=== PATIENT | female | born 1945 | race Hispanic/Latino ===

== ENCOUNTER 2016-04-25 23:30 | Inpatient (IN) | payer MEDICARE, OTHER ==
[2016-04-25 23:31] VITALS: BMI 25.4
--- NOTE | 2016-04-26 00:46 | ED PDOC ---
Arrival/HPI - General Chief Complaint: Abdominal Pain Time Seen by Provider: 04/26/16 00:29 Historian: Patient - History of Present Illness Narrative History of Present Illness (Text): 04/26/16 00:43 Chasidy Alicia is a 71 year old female, whose past medical history includes ischemic cardiomyopathy, CHF, paroxsymal atrial fibrillation, on Coumadin, COPD , diabetes, CAD with stents, and CABG, presents to the emergency department for evaluation of 2 week duration of diffuse abdominal pain associated with diarrhea for past 2 days. Denies any nausea or vomiting. Patient also complains of intermittent episodes of shortness of breath. Denies any fever, chills, headache, dizziness, chest pain, urinary symptoms or any other complaints at this time. Time/Duration: > week (2 weeks ) Symptom Onset: Gradual Symptom Course: Unchanged Severity Level: Mild Activities at Onset: Light Context: Home Past Medical History - Provider Review Nursing Documentation Reviewed: Yes - Infectious Disease Hx of Infectious Diseases: None - Tetanus Immunization Tetanus Immunization: Unknown - Cardiac Hx Cardiac Disorders: Yes (mi, cad) Hx Congestive Heart Failure: Yes Hx Internal Defibrillator: Yes (2008) Hx Pacemaker: Yes (2008) - Pulmonary Hx Chronic Obstructive Pulmonary Disease (COPD): Yes - Neurological Hx Dementia: Yes Hx Transient Ischemic Attacks (TIA): Yes - HEENT Hx HEENT Disorder: Yes Hx Deafness: Yes ([place]) - Renal Hx Renal Disorder: No - Endocrine/Metabolic Hx Diabetes Mellitus Type 2: Yes - Hematological/Oncological Hx Anemia: Yes - Integumentary Other/Comment: multiple skin discolorations b/l arms, hammertoes 2nd toe both feet, dry discolored skin ble, dry flakey skin both feet, eccymotic right hand, redness and dry skin right knee - Musculoskeletal/Rheumatological Hx Arthritis: Yes Hx Falls: Yes - Gastrointestinal Hx Gastrointestinal Disorders: Yes Hx Diverticulitis: Yes Hx Gastroesophageal Reflux: Yes Hx Liver Failure: Yes Other/Comment: ascites, paracenthesis 10/2015 - Genitourinary/Gynecological Hx Incontinence: Yes - Psychiatric Hx Psychophysiologic Disorder: Yes Hx Anxiety: Yes Hx Depression: Yes Hx Substance Use: No - Surgical History Hx Appendectomy: Yes Hx Cardiac Catheterization: Yes (ptca stents x3) Hx Cholecystectomy: Yes Hx Coronary Stent: Yes Hx Open Heart Surgery: Yes Hx Orthopedic Surgery: Yes (laminectomy) Other/Comment: herniated disc repair , partial colectomy, tonsillectomy - Anesthesia Hx Anesthesia: No Hx Anesthesia Reactions: No Hx Malignant Hyperthermia: No - Suicidal Assessment Feels Threatened In Home Enviroment: No Family/Social History - Physician Review Nursing Documentation Reviewed: Yes Family/Social History: No Known Family HX Smoking Status: Light Smoker < 10 Cigarettes Daily Hx Alcohol Use: No Hx Substance Use: No Hx Substance Use Treatment: No Allergies/Home Meds Allergies/Adverse Reactions: Allergies adhesive tape Allergy (Verified 04/25/16 23:36) REDNESS naproxen Allergy (Verified 04/25/16 23:36) VOMITING ciprofloxacin Adverse Reaction (Verified 04/25/16 23:36) ANAPHYLAXIS Home Medications: Home Meds Medication Instructions Recorded Confirmed Furosemide [Lasix] 80 mg PO DAILY 03/06/15 04/25/16 Simvastatin 20 mg PO DAILY 04/25/16 04/25/16 Review of Systems - Physician Review All systems were reviewed & negative as marked: Yes - Review of Systems Constitutional: Normal. absent: Fatigue, Fevers Respiratory: SOB (intermittent ). absent: Cough, Sputum Cardiovascular: Normal. absent: Chest Pain, Palpitations Gastrointestinal: Abdominal Pain, Diarrhea. absent: Nausea, Vomiting Genitourinary Female: Normal. absent: Dysuria Neurological: Normal. absent: Headache, Dizziness Psychiatric: Normal Physical Exam Vital Signs Reviewed: Yes Vital Signs Temp Pulse Resp BP Pulse Ox 04/26/16 01:40 84 20 121/50 L 93 L 04/25/16 23:48 97.9 F 149/67 Temperature: Afebrile Blood Pressure: Normal Pulse: Regular Respiratory Rate: Normal Appearance: Positive for: Well-Appearing, Non-Toxic, Comfortable Pain Distress: None Mental Status: Positive for: Alert and Oriented X 3 - Systems Exam Head: Present: Atraumatic, Normocephalic Pupils: Present: PERRL Extroacular Muscles: Present: EOMI Conjunctiva: Present: Normal Respiratory/Chest: Present: Good Air Exchange, Rales (bibasilar rales ). No: Respiratory Distress, Accessory Muscle Use Cardiovascular: Present: Regular Rate and Rhythm, Normal S1, S2. No: Murmurs Abdomen: Present: Tenderness (minimal tenderness ), Distention (mild abdominal fullness ), Normal Bowel Sounds. No: Peritoneal Signs Neurological: Present: GCS=15, CN II-XII Intact, Speech Normal, Motor Func Grossly Intact, Normal Sensory Function Skin: Present: Warm, Dry, Normal Color. No: Rashes Psychiatric: Present: Alert, Oriented x 3, Normal Insight, Normal Concentration Medical Decision Making ED Course and Treatment: 04/26/16 00:49 Impression: A 71 year old female who presents to the emergency department complaining of diffuse abdominal pain for 2 weeks. Plan: -- CT abdomen pelvis -- EKG -- Labs, cardiac enzymes -- Chest X-ray -- Reassess and disposition Progress Notes: 04/26/16 04:36 CT abdomen pelvis results reviewed: IMPRESSION: 1. Equivocal micronodular hepatic cirrhosis. Equivocal areas of heterogeneous decreased attenuation within the liver may reflect artifact, HCC if cirrhosis is present, or hepatic metastatic disease. Further evaluation with a contrast-enhanced study is recommended. 2. Large volume abdominal ascites may reflect portal hypertension if present.. 04/26/16 04:38 EKG interpreted by me: 100% paced rhythm. 04/26/16 04:[address] Valdez who accepts patient under his service.Request admission. - Lab Interpretations Lab Results: 04/26/16 01:15 04/26/16 01:15 Lab Results 04/26/16 01:15: WBC 4.2 L, RBC 5.66, Hgb 15.0, Hct 48.2 H, MCV 85.2, MCH 26.5, MCHC 31.1, RDW 16.6 H, Plt Count 182, MPV 11.6 H, Sodium 140, Potassium 5.0, Chloride 99, Carbon Dioxide 31, Anion Gap 15, BUN 21, Creatinine 0.7, Est GFR ( Amer) > 60, Est GFR (Non-Af Amer) > 60, Random Glucose 174 H, Calcium 9.0, Total Bilirubin 1.0, AST 29, ALT 11, Alkaline Phosphatase 137 H, Lactate Dehydrogenase 633, Total Creatine Kinase 51, Troponin I 0.03, NT-Pro-B Natriuret Pep 5230 H, Total Protein 8.1, Albumin 3.7, Globulin 4.4, Albumin/ Globulin Ratio 0.8 L, Lipase 37 I have reviewed the lab results: Yes - RAD Interpretation Narrative RAD Interpretations (Text): EXAM: CT Abdomen and Pelvis Without Intravenous Contrast. FINDINGS: Lower thorax: Cardiomegaly noted Centrilobular emphysema is present. ABDOMEN: Liver: Equivocal micronodular hepatic cirrhosis. Equivocal areas of heterogeneous decreased attenuation within the liver may reflect artifact, HCC if cirrhosis is present, or hepatic metastatic disease. Further evaluation with a contrast-enhanced study is recommended. Gallbladder and bile ducts: The patient is status post cholecystectomy. No ductal dilation. Pancreas: Unremarkable. No ductal dilation. Spleen: Unremarkable. No splenomegaly. Adrenals: Unremarkable. No mass. Kidneys and ureters: Unremarkable. No obstructing stones. No hydronephrosis. Stomach and bowel: Patient status post sigmoidectomy No obstruction. Appendix: No findings to suggest acute appendicitis. PELVIS: Bladder: Unremarkable. No stones. Reproductive: Unremarkable as visualized. ABDOMEN and PELVIS: Intraperitoneal space: Large volume abdominal ascites may reflect portal hypertension at present.. Bones/joints: No acute fracture. No dislocation. Soft tissues: Unremarkable. Vasculature: Unremarkable. No abdominal aortic aneurysm. Lymph nodes: Unremarkable. No enlarged lymph nodes. Other findings: AAA measures 3.4 x 3.3 cm Patient status post ventral herniorrhaphy IMPRESSION: 1. Equivocal micronodular hepatic cirrhosis. Equivocal areas of heterogeneous decreased attenuation within the liver may reflect artifact, HCC if cirrhosis is present, or hepatic metastatic disease. Further evaluation with a contrast-enhanced study is recommended. 2. Large volume abdominal ascites may reflect portal hypertension if present.. Radiology Orders: 04/26/16 00:50 CHEST PORTABLE [RAD] Stat 04/26/16 00:51 ABD & PELVIS W/O PO OR IV CONT [CT] Stat Sample Cutter: Radiologist - EKG Interpretation Interpreted by ED Physician: Yes Type: 12 lead EKG - Medication Orders Current Medication Orders: Discontinued Medications Furosemide (Lasix) 60 mg IVP ONCE ONE Stop: 04/26/16 04:38 - Scribe Statement The provider has reviewed the documentation as recorded by the Javier Cope Provider Attestation: All medical record entries made by the Javier were at my direction and personally dictated by me. I have reviewed the chart and agree that the record accurately reflects my personal performance of the history, physical exam, medical decision making, and the department course for this patient. I have also personally directed, reviewed, and agree with the discharge instructions and disposition. Disposition/Present on Arrival - Present on Arrival Any Indicators Present on Arrival: No History of DVT/PE: No History of Uncontrolled Diabetes: No Urinary Catheter: No History of Decub. Ulcer: No History Surgical Site Infection Following: None - Disposition Have Diagnosis and Disposition been Completed?: Yes Diagnosis: Abdominal pain, CHF (congestive heart failure), NYHA class II, Ascites Disposition: HOSPITALIZED Disposition Time: 04:56 Patient Plan: Admission Patient Problems: Current Active Problems Problem Status Diagnosed CHF (congestive heart failure) Acute Cardiomyopathy Acute Fall Acute Falls frequently Acute Condition: STABLE Discharge Instructions (ExitCare): Heart Failure (ED)
[2016-04-26 01:34] LABS: HEMATOCRIT 48.2 % (36.0-48.0); MEAN CELL VOLUME 85.2 fL (80.0-105.0); MEAN CORPUSCULAR HEMOGLOBIN 26.5 pg (25.0-35.0); MEAN CORPUSCULAR HGB CONC 31.1 g/dl (31.0-37.0); MEAN PLATELET VOLUME 11.6 fl (7.0-11.0); RED CELL DISTRIBUTION WIDTH 16.6 % (11.5-14.5); WHITE BLOOD COUNT 4.2 [, 10^3/ul] (4.5-11.0)
[2016-04-26 01:47] LABS: ALB/GLOB RATIO 0.8 (1.1-1.8); ALKALINE PHOSPHATASE 137 U/L (38-133); ALT/SGPT 11 U/L (7-56); AST/SGOT 29 U/L (15-39); BLOOD UREA NITROGEN 21 mg/dL (7-21); CARBON DIOXIDE 31 mmol/L (21-33); CHLORIDE 99 mmol/L (98-107); GFR AFRICAN-AMERICAN > 60; GLUCOSE,RANDOM 174 mg/dL (70-110); LIPASE 37 U/L (23-300); SODIUM 140 mmol/L (132-148); TOTAL PROTEIN 8.1 g/dL (5.8-8.3)
[2016-04-26 01:57] LABS: TROPONIN I 0.03 ng/mL
--- NOTE | 2016-04-26 11:10 | RAD ---
HISTORY: abdominal pain COMPARISON: Comparison is made to the previous study dated 04/06/2016 FINDINGS: LUNGS: No evidence of new infiltrate or consolidation in the lungs. PLEURA: No significant pleural effusion identified, no pneumothorax apparent. CARDIOVASCULAR: Cardiomegaly and left-sided pacemaker are again seen. Post cardiac surgery changes and sternotomy are also again seen. OSSEOUS STRUCTURES: No significant abnormalities. VISUALIZED UPPER ABDOMEN: Normal. OTHER FINDINGS: None. IMPRESSION: No significant interval change since the previous exam. Cardiomegaly.
--- NOTE | 2016-04-26 15:50 | CT ---
PROCEDURE: CT Abdomen and Pelvis without intravenous contrast HISTORY: Generalized abdominal pain. COMPARISON: 04/06/2016. CT abdomen and pelvis. TECHNIQUE: Unenhanced study. Neither oral nor intravenous contrast administered. Radiation dose: Total exam DLP = 577.61 mGy-cm. FINDINGS: LOWER THORAX: UnremarkableImproved aeration at the lung bases. Incompletely visualized emphysematous change. All. LIVER: Cirrhotic liver without focal abnormality on this noncontrast study GALLBLADDER AND BILE DUCTS: Status post cholecystectomy. No abnormality is seen in the gallbladder fossa. PANCREAS: Generalized atrophy of the pancreas. SPLEEN: Unremarkable. ADRENALS: Unremarkable. No mass. KIDNEYS AND URETERS: Unremarkable. No hydronephrosis. No solid mass. VASCULATURE: Unremarkable. No aortic aneurysm. BOWEL: Unremarkable. No obstruction. No gross mural thickening. Stable postoperative findings at the anastomotic suture line status post sigmoid resection. APPENDIX: No abnormalities to suggest acute appendicitis. No right lower quadrant inflammatory processes identified. PERITONEUM: Stable large volume abdominal and pelvic ascites. LYMPH NODES: Unremarkable. No enlarged lymph nodes. BLADDER: Unremarkable. REPRODUCTIVE: Unremarkable. BONES: No acute fracture. OTHER FINDINGS: None. IMPRESSION: No acute findings related to/accounting for the clinical presentation. No significant interval change compared to the prior examination(s). Concordant results (preliminary interpretation) provided by [facility]. Procedure Completed: 03:31. Preliminary ([facility]) Report: Dictated and Authenticated: 03:59. Final Interpretation: 15:49. April 26, 2016.
--- NOTE | 2016-04-26 18:08 | CARD ---
APPROVED REPORT EKG Measurement Heart [id number] [place] 296P [id number] <Conclusion> Electronic Bi- ventricular pacemaker
[2016-04-26] MEDS: DOBUTamine 500mg/250ml D5W 250 ML IV PRN (19:01)
--- NOTE | 2016-04-26 20:22 | HP ---
HISTORY OF PRESENT ILLNESS: The patient is a 71-year-old female, admitted through the [facility], on 04/25/2016, with abdominal discomfort, increasing distention, and shortness of breath for t he past few days. The patient denies any chest pain, no nausea, no vomiting. She reports occasional loose bowel movements, no fever, no chills, no melena, no bright red blood per rectum, no jaundice. The patient is known to have ascites and has undergone recurrent abdominal paracentesis by Dr. Yaw Leonard in the past. She refused a paracentesis on her last admission of 04/06/2016. PAST MEDICAL HI STORY: Includes ischemic cardiomyopathy with recurrent admissions for CHF, status post CABG/AICD. The patient has paroxysmal atrial fibrillation on Coumadin, type 2 diabetes mellitus diet controlled, and COPD. PAST SURGICAL HISTORY: The patient is status post CABG/AICD. CURRENT MEDICATIONS: Include Benadryl 25 at bedtime, Coumadin 3 mg daily, digoxin 0.25 mg daily, Las ix 80 mg daily, Lipitor 10 mg daily, Pepcid 20 mg daily. ALLERGIES: INCLUDE NAPROSYN, CIPROFLOXACIN, AND ADHESIVE TAPE. SOCIAL HISTORY: The patient has no history of tobacco or alcohol use. She is independent with ADLs and lives with her grandson. She requires some assistance with IADLs. REVIEW OF SYSTEMS: Essentially as above. PHYSICAL EXAMINATION: GENERAL: The patient is a somewhat cachectic female in no acute distress. VITAL SIGNS: Blood pressure 100/60, pulse 66, temperature 98.3, respiratory rate 20. LUNGS: Show few bibasilar crackles. HEART: Regular rate and rhythm with a grade II/ systolic murmur. AICD in the left chest wall is i ntact. ABDOMEN: Soft, nontender, somewhat distended, fluid wave is present. EXTREMITIES: Without cyanosis, clubbing, or edema. NEUROLOGIC: The patient is awake and oriented without focal, sensory, or motor deficits. SKIN: Warm and dry. LABORATORY DATA: WBC is 5.2, hemoglobin 15.0, hematocrit 48.2. Sodium 140, potassium 5.0, chloride 99, CO2 of 31, BUN 21, creatinine 0.7, glucose 174. BNP is elevated at 5270. Chest x-ray shows no a ctive disease. CT scan of the abdomen and pelvis shows large ascites. IMPRESSION: 1. Ischemic cardiomyopathy with recurrent congestive heart failure, and ascites. 2. Coronary artery disease, status post coronary artery bypass graft/automatic implantable cardiovert er-defibrillator. 3. Paroxysmal atrial fibrillation. 4. Type 2 diabetes mellitus/diet controlled. 5. Chronic obstructive pulmonary disease. PLAN: The patient will be admitted to the telemetry unit. We will obtain a cardiology consult with Dr. Roy/Dr. Quinteros. I will start low dose IV dobutamine, as well as IV Lasix, and low flow oxygen. Continue present medications. Heart healthy diet. Regular insulin coverage as per low dose insulin coverage protocol. We will obtain a consultation from Dr. Yaw Leonard for possible abdominal parace ntesis. Physical Therapy evaluation and Social Work for discharge planning. Garcia Valdez JD, MD cc: [id number] TT: 04/26/2016 20:21:01 ln
[2016-04-26] MEDS: Insulin Reg-LOW-Coverage SC SCH (22:14)
[2016-04-27 07:29] LABS: INR 2.6 (0.93-1.08)
[2016-04-27] MEDS: Insulin Reg-LOW-Coverage SC SCH ×4 (07:59→22:08)
--- NOTE | 2016-04-27 11:12 | CON ---
DATE: 04/27/2016 REASON FOR CONSULTATION: Cardiac evaluation, history of CHF, history of coronary artery, CABG, statu s post AICD, admitted with abdominal discomfort and shortness of breath. BRIEF CLINICAL HISTORY: This is a 71-year-old female with a past medical history significant for cor onary artery disease, history of PTCA pre-CABG and post-CABG, status post MVR, history of AICD, multi ple admissions for CHF, multiple admissions with abdominal distention, multiple abdominal paracentese s. Last time patient refused abdominal paracentesis. Came in with abdominal distention and shortnes s of breath. Now patient denies any chest pain. PAST MEDICAL HISTORY: Significant for longstanding history of coronary artery disease started in 199 0 with inferior wall myocardial infarction, status post TPA, then status post multiple PTCAs during course of time. The patient had a CABG at [facility]. Later on, the patient had mitr al valve repair with a CABG. Post CABG, patient had another PTCA and then patient had AICD. Since , the patient has had multiple admissions with recurrent decompensated congestive heart failure, i schemic cardiomyopathy, severe decreased LV function; history of diabetes, off oral hypoglycemic wyatt use of recurrent hypoglycemia. PAST SURGICAL HISTORY: Significant for incarcerated hernia, status post surgery; hypertension, histo ry of AICD, history of open heart surgery, history of MVR, history of multiple abdominal paracenteses . SOCIAL HISTORY: Denies smoking. Denies any history of alcohol. ALLERGIES: No known drug allergy. CURRENT MEDICATIONS: At home was taking Coumadin, simvastatin, lisinopril, Pepcid, diphenhydramine, Benadryl, digoxin. Last echo shows severely decreased LV function dated 04/14/2015, ejection fraction 20-25%; trace to m ild mitral regurgitation, status post mitral valve repair; mild to moderate mitral stenosis, valve ar ea 1.3 cm2, post mitral valve repair; moderate to severe tricuspid regurgitation, RV systolic pressur e of 51, pulmonary hypertension. REVIEW OF SYSTEMS: As per HPI. PHYSICAL EXAMINATION: VITAL SIGNS: Temperature afebrile, heart rate 72, blood pressure 119/82. HEENT: PERRLA. Extraocular muscles intact. NECK: Supple. No carotid bruits. No thyromegaly. CHEST: Clear to auscultation. HEART: S1, S2 regular. ABDOMEN: Soft. EXTREMITIES: Clubbing and cyanosis negative. BLOOD WORKUP: WBC 4.2, hemoglobin 15, hematocrit 48.2, platelet count 182. Chemistry shows sodium 1 40, potassium 5, chloride 99, carbon dioxide 31, anion gap of 15, BUN 21, creatinine 0.7. BNP 5230. IMPRESSION: Decompensated congestive heart failure, recurrent ascites, ischemic cardiomyopathy; deco mpensated congestive heart failure, acute on chronic, secondary to systolic dysfunction; diabetes, hy pertension, hyperlipidemia; ischemic cardiomyopathy, status post open heart surgery, status post ____ percutaneous transluminal coronary angioplasty, status post myocardial infarction in 1989, status po st total parenteral nutrition at that time, and then patient underwent multiple percutaneous translum inal coronary angioplasties and then patient had coronary artery bypass graft and mitral valve repair ; moderate mitral stenosis secondary to mitral valve repair, pulmonary hypertension, status post auto matic implantable cardioverter-defibrillator; therapeutic INR, ascites, ischemic cardiomyopathy; typ e 2 diabetes, off hypoglycemic agent because of recurrent hypoglycemia. RECOMMENDATIONS: The patient started Dobutrex by Dr. Valdez. IV Lasix started and digoxin. Will rep eat the blood workup in the morning. Will follow with you. Thank you, Dr. Valdez, for providing the opportunity in taking care of this patient. Will follow with you. Tonia Quinteros MD cc: [id number] TT: 04/27/2016 11:12:04 Confirmation # [id number] Dictation # [id number] mn
[2016-04-27] MEDS: Digoxin 250 mcg (0.25 mg) Tab PO SCH (13:53)
--- NOTE | 2016-04-27 16:20 | PN ---
DATE: 04/27/2016 SUBJECTIVE: The patient is lying in bed in no acute distress. She denies chest pain or shortness of breath. OBJECTIVE: VITAL SIGNS: Blood pressure 120/83, temperature 98.5, pulse 82, respiratory rate 20. LUNGS: Show a few crackles at the bases. HEART: Regular rate and rhythm, grade II/ systolic murmur without change. No JVD. ABDOMEN: Soft, nontender, bowel sounds are normoactive. EXTREMITIES: Without cyanosis, clubbing, or edema. NEUROLOGICALLY: The patient is awake and responsive without focal, sensory, or motor deficits. SKIN: Warm and dry. IMPRESSION: 1. Ischemic cardiomyopathy with recurrent congestive heart failure and ascites. 2. Coronary artery disease, status post coronary artery bypass graft/automatic implantable cardiovert er-defibrillator. 3. Paroxysmal atrial fibrillation. 4. Type 2 diabetes mellitus, diet controlled. 5. Chronic obstructive pulmonary disease. PLAN: Continue IV Lasix, O2, and IV dobutamine. Cardiology consult Dr. Quinteros is appreciated. Await consult Dr. Leonard for possible paracentesis. Continue low dose regular insulin coverage. Physical t herapy evaluation and social work for discharge planning. Garcia Valdez JD, MD cc: [id number] TT: 04/27/2016 16:19:57 Confirmation # [id number] Dictation # [id number] maryana
[2016-04-28] MEDS: Insulin Reg-LOW-Coverage SC SCH ×4 (07:53→22:21)
[2016-04-28 08:02] LABS: ADD MANUAL DIFF? NO
[2016-04-28 08:11] LABS: EOS % 0.8 % (1.5-5.0); GRAN # 2.69 (1.4-6.5); GRAN % 72.9 % (50.0-68.0); HEMATOCRIT 39.6 % (36.0-48.0); LYMPH # 0.7 (1.2-3.4); LYMPH % 18.7 % (22.0-35.0); MEAN CELL VOLUME 83.4 fL (80.0-105.0); MEAN CORPUSCULAR HEMOGLOBIN 26.3 pg (25.0-35.0); MEAN CORPUSCULAR HGB CONC 31.6 g/dl (31.0-37.0); MONO # 0.3 (0.1-0.6); MONO % 7.6 % (1.0-6.0); PLATELET COUNT 154 [, 10^3/uL] (120.0-450.0); RED CELL DISTRIBUTION WIDTH 16.4 % (11.5-14.5); WHITE BLOOD COUNT 3.7 [, 10^3/ul] (4.5-11.0)
[2016-04-28 08:48] LABS: ALB/GLOB RATIO 0.8 (1.1-1.8); ALKALINE PHOSPHATASE 104 U/L (38-133); ALT/SGPT 11 U/L (7-56); AST/SGOT 23 U/L (15-39); BILIRUBIN,TOTAL 0.8 mg/dL (0.2-1.3); BLOOD UREA NITROGEN 23 mg/dL (7-21); CARBON DIOXIDE 29 mmol/L (21-33); CHLORIDE 99 mmol/L (98-107); GFR AFRICAN-AMERICAN > 60; GLUCOSE,RANDOM 113 mg/dL (70-110); MAGNESIUM 1.8 mg/dL (1.7-2.2); PHOSPHOROUS 3.1 mg/dL (2.5-4.5); POTASSIUM 3.8 mmol/L (3.6-5.0); SODIUM 137 mmol/L (132-148)
[2016-04-28] MEDS: Digoxin 250 mcg (0.25 mg) Tab PO SCH (13:18)
--- NOTE | 2016-04-28 14:35 | PN ---
DATE: 04/28/2016 SUBJECTIVE: The patient is out of bed in chair, in no acute distress. She denies chest pain or shor tness of breath. OBJECTIVE: VITAL SIGNS: Blood pressure 120/67, pulse 75, temperature 97.6, respiratory rate 18. LUNGS: Clear. HEART: Regular rate and rhythm. ABDOMEN: Soft, nontender, bowel sounds are normoactive, slightly distended. EXTREMITIES: Without cyanosis, clubbing, or edema. NEUROLOGIC: The patient is awake and responsive without focal sensory or motor deficits. SKIN: Warm and dry. LABORATORY DATA: WBC is 3.7, hemoglobin 12.5, hematocrit 39.6. Sodium 137, potassium 3.8, chloride 99, CO2 of 29, BUN 23, creatinine 0.7, glucose 113. IMPRESSION: 1. Ischemic cardiomyopathy with recurrent congestive heart failure and ascites. 2. Coronary artery disease status post coronary artery bypass graft/automatic implantable cardiovert er-defibrillator. 3. Paroxysmal atrial fibrillation. 4. Type 2 diabetes mellitus, diet controlled. 5. Chronic obstructive pulmonary disease. PLAN: Continue IV Lasix, O2 and IV dobutamine. Continue cardiology followup with Dr. Quinteros/Dr. Malena oleary. Consultation with Dr. Leonard for possible abdominal paracentesis. Continue low dose regular insul in coverage. Physical therapy evaluation and social work for discharge planning. Garcia Valdez JD, MD cc: [id number] TT: 04/28/2016 14:34:32 Confirmation # [id number] Dictation # [id number] mn
--- NOTE | 2016-04-28 16:14 | PN ---
DATE: 04/28/2016 REASON FOR CONSULTATION AND FOLLOWUP: Cardiac evaluation, history of CHF, history of coronary artery disease, CABG, status post AICD, admitted with abdominal discomfort, shortness of breath, decompensa maria ines congestive heart failure. BRIEF CLINICAL HISTORY: A 71-year-old female with a past medical history significant for extensive h istory of coronary artery disease, CABG, pre-CABG PTCA, chronic atrial fibrillation, status post AICD , admitted abdominal pain, ascites, and decompensated congestive heart failure. Denies any chest amrit n now. PHYSICAL EXAMINATION: As follows: VITAL SIGNS: Temperature afebrile, heart rate 75, blood pressure 120/67. HEENT: PERRLA, intact. NECK: Supple. No carotid bruits. No thyromegaly. CHEST: Clear to auscultation. HEART: S1, S2 regular. ABDOMEN: Soft. EXTREMITIES: Clubbing and cyanosis negative. BLOOD WORKUP: As follows: WBC 3.7, hemoglobin ____, hematocrit 39.6, platelet count 154. Chemistry shows sodium ____, potassium 3.8, chloride 99, carbon dioxide 29, anion gap of 13, BUN 23, creatinin e 0.7. IMPRESSION: Decompensated congestive heart failure, ascites, cardiomyopathy, coronary artery disease , coronary artery bypass graft, status post automatic implanted cardiac defibrillator, chronic atrial fibrillation, type 2 diabetes, off oral hypoglycemic agent because of recurrent hypoglycemia; decrea sed left ventricular function, ischemic cardiomyopathy, congestive heart failure ____ chronic seconda ry to systolic dysfunction. INR 2.6 yesterday. RECOMMENDATION: Continue Dobutrex. Continue digoxin. Continue Lasix. The patient is on hold Couma din because of possible paracentesis. Once the paracentesis is done, then patient's Coumadin will be resumed. We will do repeat PT/INR, CBC in the morning being. Thank you, Dr. Valdez, for providing us the opportunity in taking care of the patient. We will follow with you. Tonia Quinteros MD cc:Garcia Valdez JD, MD [id number] TT: 04/28/2016 13:28:45 Confirmation # [id number] Dictation # [id number]
--- NOTE | 2016-04-28 19:49 | US ---
PROCEDURE: Ultrasound guided paracentesis. HISTORY: Refractory CHF with recurrent ascites and abdominal pain and distension. Needs paracentesis PHYSICIAN(S): Yaw Leonard MD. TECHNIQUE: The relative risks and indications for the procedure were explained to the patient and informed written consent obtained. Sonography of the abdomen was performed in a supine position. This revealed a moderate amount of non-loculated ascites, greatest in the right lower quadrant. A puncture site was selected and the area was prepped and draped in the usual sterile fashion. 1% Xylocaine was used to anesthetize the skin and soft tissues. A 7 [place] paracentesis catheter was trocared into the right lower quadrantand 3600 cc of clear, straw-colored fluid aspirated. No labs were sent. IMPRESSION: Ultrasound-guided paracentesis in the right lower quadrant. 3600 cc of fluid were aspirated.
[2016-04-29] MEDS: DOBUTamine 500mg/250ml D5W 250 ML IV PRN (05:33)
[2016-04-29 06:52] LABS: ADD MANUAL DIFF? NO
[2016-04-29 07:11] LABS: BASO # 0.01 [, K/mm3] (0.0-2.0); BASO % 0.3 % (0.0-3.0); EOS % 0.9 % (1.5-5.0); GRAN # 2.51 (1.4-6.5); HEMATOCRIT 41.7 % (36.0-48.0); LYMPH # 0.6 (1.2-3.4); MEAN CELL VOLUME 83.6 fL (80.0-105.0); MEAN CORPUSCULAR HEMOGLOBIN 25.9 pg (25.0-35.0); MEAN CORPUSCULAR HGB CONC 30.9 g/dl (31.0-37.0); MEAN PLATELET VOLUME 11.2 fl (7.0-11.0); MONO # 0.3 (0.1-0.6); MONO % 7.8 % (1.0-6.0); PLATELET COUNT 125 [, 10^3/uL] (120.0-450.0); RED CELL DISTRIBUTION WIDTH 16.5 % (11.5-14.5); WHITE BLOOD COUNT 3.4 [, 10^3/ul] (4.5-11.0)
[2016-04-29 07:19] LABS: INR 1.55 (0.93-1.08)
[2016-04-29 07:53] LABS: ALB/GLOB RATIO 0.8 (1.1-1.8); ALKALINE PHOSPHATASE 99 U/L (38-133); ALT/SGPT 7 U/L (7-56); AST/SGOT 23 U/L (15-39); BILIRUBIN,TOTAL 0.8 mg/dL (0.2-1.3); BLOOD UREA NITROGEN 22 mg/dL (7-21); CALCIUM 8.2 mg/dL (8.4-10.5); CARBON DIOXIDE 30 mmol/L (21-33); CHLORIDE 97 mmol/L (98-107); GFR AFRICAN-AMERICAN > 60; GLUCOSE,RANDOM 126 mg/dL (70-110); MAGNESIUM 1.8 mg/dL (1.7-2.2); PHOSPHOROUS 2.8 mg/dL (2.5-4.5); SODIUM 135 mmol/L (132-148)
[2016-04-29] MEDS: Insulin Reg-LOW-Coverage SC SCH ×4 (09:40→22:10)
--- NOTE | 2016-04-29 10:44 | PN ---
DATE: 04/29/2016 REASON FOR CONSULTATION AND FOLLOWUP: Cardiac evaluation, history of CHF, history of coronary artery disease, CABG, history of AICD, admitted with abdominal discomfort, shortness of breath, decompensat ed congestive heart failure. BRIEF CLINICAL HISTORY: A 71-year-old female with a past medical history significant for extensive c oronary artery disease, status post coronary artery bypass graft, PTCA, chronic atrial fibrillation, AICD, status post repair of mitral valve, chronic atrial fibrillation, diabetes, hypertension, hyperl ipidemia, yesterday underwent abdominal paracentesis, 3.6 liters of fluid was aspirated. PHYSICAL EXAMINATION: VITAL SIGNS: Temperature afebrile, heart rate 91, blood pressure 114/95. HEENT: PERRLA. Extraocular muscles intact. NECK: Supple. No carotid bruits. No thyromegaly. CHEST: Clear to auscultation. HEART: S1, S2 regular. ABDOMEN: Soft. EXTREMITIES: Clubbing and cyanosis negative. LABORATORY DATA: Blood workup as follows: WBC 3.4, hemoglobin 12.9, hematocrit 41.7, platelet count 125. Chemistry shows sodium , potassium 4, chloride 97, carbon dioxide 30, anion gap of 12, BU N 22, creatinine 0.8. IMPRESSION AND PLAN: Decompensated congestive heart failure, acute on chronic secondary to systolic dysfunction, ascites, status post paracentesis, coronary artery disease, coronary artery bypass graft , significantly decreased left ventricular function, chronic atrial fibrillation, failure to thrive, cardiac cachexia. Coumadin was on hold because of abdominal paracentesis. We will resume back Couma din from today. Continue digoxin, continue diuretics. We will follow with you. Thank you, Dr. Valdez, for providing the opportunity in taking care of this patient. We will follow w ith you. Will start Coumadin 3 mg from today. Tonia Quinteros MD cc: [id number] TT: 04/29/2016 10:43:30 Confirmation # [id number] Dictation # [id number] mayela
--- NOTE | 2016-04-29 11:26 | PN ---
DATE: 04/29/2016 SUBJECTIVE: The patient is lying in bed, in no acute distress. She denies chest pain or shortness o f breath. She is status post abdominal paracentesis. There is no abdominal pain. OBJECTIVE: VITAL SIGNS: Blood pressure 122/59, temperature 97.8, pulse 91, respiratory rate 20. LUNGS: Clear. HEART: Regular rate and rhythm. ABDOMEN: Soft, nontender, bowel sounds are normoactive. EXTREMITIES: Without cyanosis, clubbing, or edema. NEUROLOGIC: The patient is awake and oriented without focal, sensory or motor deficits. SKIN: Warm and dry. LABORATORY DATA: WBCs 3.4, hemoglobin 12.9, hematocrit 41.7. Sodium 135, potassium 4.0, chloride 97 , CO2 30, BUN 22, creatinine 0.8, glucose 126. IMPRESSION: 1. Ischemic cardiomyopathy with recurrent congestive heart failure and ascites, status post abdomina l paracentesis. 2. Coronary artery disease, status post coronary artery bypass graft/automatic implantable cardiover ter-defibrillator. 3. Paroxysmal atrial fibrillation. 4. Type 2 diabetes mellitus, diet controlled. 5. Chronic obstructive pulmonary disease. PLAN: We will discontinue IV dobutamine and discontinue IV Lasix. Start p.o. Lasix. Warfarin has b een restarted. Continue low dose regular insulin coverage, physical therapy and social work for disc harge planning. Garcia Valdez JD, MD cc: [id number] TT: 04/29/2016 11:25:41 Confirmation # [id number] Dictation # [id number] en
[2016-04-29] MEDS: Digoxin 250 mcg (0.25 mg) Tab PO SCH (13:16)
[2016-04-30 06:29] VITALS: O2SAT 97
[2016-04-30 07:16] LABS: INR 1.31 (0.93-1.08)
[2016-04-30] MEDS: Insulin Reg-LOW-Coverage SC SCH ×2 (07:52→11:32)
[2016-04-30 12:47] VITALS: BP 106/71; PULSE 79; RESP 19; TEMP 97.4
[2016-04-30] MEDS: Digoxin 250 mcg (0.25 mg) Tab PO SCH (13:01)
[2016-04-30 13:03] VITALS: PULSE 79
--- NOTE | 2016-05-04 08:16 | DS ---
HOSPITAL COURSE: The patient is a 71-year-old female, admitted through the Emergency Department on with abdominal discomfort and ascites. The patient has a history of recurrent CHF. She und erwent abdominal paracentesis by Dr. Yaw Leonard, was seen in consultation by Dr. Quinteros and Dr. Roy for cardiology. She received IV dobutamine and was discharged to home in stable condition on . IMPRESSION: 1. Ischemic cardiomyopathy with recurrent congestive heart failure. 2. Coronary artery disease, status post automatic implantable cardioverter-defibrillator and coronar y artery bypass graft. 3. Paroxysmal atrial fibrillation. 4. Type 2 diabetes mellitus, diet controlled. 5. Chronic obstructive pulmonary disease. The patient was discharged to home on the following medications: Coumadin 3 mg daily, digoxin 0.25 m g daily, Lasix 80 mg daily, Lipitor 10 mg daily, Pepcid 20 mg daily, Benadryl 25 mg at bedtime. The patient will be maintained on a heart healthy diet. Activity is ad libitum. She will be seen in the office within 1-2 weeks post discharge. Garcia Valdez JD, MD cc: [id number] TT: 05/04/2016 08:15:43 en
== END 2016-04-30 13:16 | disposition home or self-care (01) | DRG 432 ==
LOC: ED 23:30 → ERH 04-26 04:59 → 2RNO 04-26 09:35
PROVIDERS: ADMIT Internal Medicine; ATTEND Internal Medicine
PROC: BW40ZZZ Ultrasonography of Abdomen (ICD-10-PCS; 2016-04-28)
PROC: 0W9G3ZZ Drainage of Peritoneal Cavity, Percutaneous Approach (ICD-10-PCS; principal; 2016-04-28 16:00)
DX: K74.69 Other cirrhosis of liver (principal); I50.23 Acute on chronic systolic (congestive) heart failure; R64 Cachexia; R18.8 Other ascites; K76.6 Portal hypertension; C78.7 Secondary malignant neoplasm of liver and intrahepatic bile duct; F03.90 Unspecified dementia, unspecified severity, without behavioral disturbance, psychotic disturbance, mood disturbance, and anxiety; K57.92 Diverticulitis of intestine, part unspecified, without perforation or abscess without bleeding; I27.2 Other secondary pulmonary hypertension; J43.2 Centrilobular emphysema; J44.9 Chronic obstructive pulmonary disease, unspecified; I48.0 Paroxysmal atrial fibrillation; I48.2 Chronic atrial fibrillation; I25.5 Ischemic cardiomyopathy; I25.10 Atherosclerotic heart disease of native coronary artery without angina pectoris; I51.7 Cardiomegaly; E11.9 Type 2 diabetes mellitus without complications; E78.5 Hyperlipidemia, unspecified; I10 Essential (primary) hypertension; H91.90 Unspecified hearing loss, unspecified ear; I25.2 Old myocardial infarction; K21.9 Gastro-esophageal reflux disease without esophagitis; R29.6 Repeated falls; Z79.899 Other long term (current) drug therapy; Z86.73 Personal history of transient ischemic attack (TIA), and cerebral infarction without residual deficits; Z90.49 Acquired absence of other specified parts of digestive tract; Z95.0 Presence of cardiac pacemaker; Z95.1 Presence of aortocoronary bypass graft; Z95.2 Presence of prosthetic heart valve; Z95.5 Presence of coronary angioplasty implant and graft; Z95.810 Presence of automatic (implantable) cardiac defibrillator; D64.9 Anemia, unspecified; M20.42 Other hammer toe(s) (acquired), left foot; M20.41 Other hammer toe(s) (acquired), right foot; R32 Unspecified urinary incontinence; F41.9 Anxiety disorder, unspecified; F32.89 Other specified depressive episodes; F17.210 Nicotine dependence, cigarettes, uncomplicated; Z87.892 Personal history of anaphylaxis; Z91.048 Other nonmedicinal substance allergy status; Z88.6 Allergy status to analgesic agent; Z88.1 Allergy status to other antibiotic agents; I08.1 Rheumatic disorders of both mitral and tricuspid valves; R62.7 Adult failure to thrive; I51.9 Heart disease, unspecified

== ENCOUNTER 2016-05-13 10:34 | Inpatient (IN) | payer MEDICARE, OTHER ==
[2016-05-13 10:34] VITALS: PULSE 79
[2016-05-13 10:54] VITALS: BMI 25.3
[2016-05-13 11:18] LABS: ADD MANUAL DIFF? NO
[2016-05-13 11:27] LABS: BASO # 0.01 K/mm3 (0.0-2.0); BASO % 0.2 % (0.0-3.0); EOS % 0.9 % (1.5-5.0); GRAN % 70.9 % (50.0-68.0); HEMATOCRIT 45.4 % (36.0-48.0); LYMPH % 21.5 % (22.0-35.0); MEAN CELL VOLUME 84.5 fL (80.0-105.0); MEAN CORPUSCULAR HEMOGLOBIN 26.3 pg (25.0-35.0); MEAN CORPUSCULAR HGB CONC 31.1 g/dl (31.0-37.0); MEAN PLATELET VOLUME 10.2 fl (7.0-11.0); MONO # 0.3 (0.1-0.6); MONO % 6.5 % (1.0-6.0); PLATELET COUNT 164 10^3/uL (120.0-450.0); RED CELL DISTRIBUTION WIDTH 17.1 % (11.5-14.5); WHITE BLOOD COUNT 4.7 10^3/ul (4.5-11.0)
[2016-05-13 11:31] LABS: URINE APPEARANCE CLEAR (CLEAR); URINE BILIRUBIN NEGATIVE (NEGATIVE); URINE BLOOD TRACE-INTACT (NEGATIVE); URINE COLOR YELLOW (YELLOW); URINE GLUCOSE (UA) NEGATIVE (NEGATIVE); URINE KETONE NEGATIVE (NEGATIVE); URINE LEUKOCYTE ESTERASE NEGATIVE Leu/uL (NEGATIVE); URINE PROTEIN >=300 mg/dL (<30 mg/dL)
--- NOTE | 2016-05-13 11:31 | ED PDOC ---
Arrival/HPI - General Chief Complaint: Abdominal Pain Time Seen by Provider: 05/13/16 11:02 Historian: Patient - History of Present Illness Narrative History of Present Illness (Text): 05/13/16 11:05 A 71 year old female, whose past medical history includes ischemic cardiomyopathy, CHF, paroxsymal atrial fibrillation, on Coumadin, COPD, diabetes , CAD with stents, and CABG, is brought into the emergency department via EMS for evaluation of shortness of breath, diffuse abdominal pain, nausea, 1 episode of non bloody non bilious vomiting and 1 episode of non bloody watery diarrhea since this morning. ntoed recent admission with paracentesis. Patient denies any fever, or other complaints at this time. PMD: Dr. Valdez Time/Duration: 4-6 hours Symptom Onset: Sudden Symptom Course: Unchanged Quality: Other Activities at Onset: Rest Context: Home Past Medical History - Provider Review Nursing Documentation Reviewed: Yes - Infectious Disease Hx of Infectious Diseases: None - Tetanus Immunization Tetanus Immunization: Unknown - Reproductive Menopause: Yes - Cardiac Hx Cardiac Disorders: Yes ([place] , CAD) Hx Congestive Heart Failure: Yes Hx Hypertension: Yes - Pulmonary Hx Chronic Obstructive Pulmonary Disease (COPD): Yes - Neurological Hx Neurological Disorder: Yes Hx Transient Ischemic Attacks (TIA): Yes - HEENT Hx HEENT Disorder: Yes Hx Deafness: Yes - Renal Hx Renal Disorder: No - Endocrine/Metabolic Hx Diabetes Mellitus Type 2: Yes - Hematological/Oncological Hx Cancer: Yes - Integumentary Other/Comment: multiple skin discolorations b/l arms, hammertoes 2nd toe both feet, dry discolored skin ble, dry flakey skin both feet, eccymotic right hand, redness and dry skin right knee - Musculoskeletal/Rheumatological Hx Arthritis: Yes - Gastrointestinal Hx Liver Failure: Yes Other/Comment: history of ascites/ paracenthesis done in the past - Genitourinary/Gynecological Hx Incontinence: Yes - Psychiatric Hx Psychophysiologic Disorder: Yes Hx Anxiety: Yes Hx Depression: Yes Hx Substance Use: No - Surgical History Hx Appendectomy: Yes Hx Cardiac Catheterization: Yes (Stents x 3 PTCA) Hx Cholecystectomy: Yes Hx Coronary Stent: Yes Hx Open Heart Surgery: Yes Hx Orthopedic Surgery: Yes (laminectomy) Other/Comment: Herniated disc repair, partial colectomy, tonsilectomy - Anesthesia Hx Anesthesia: No Hx Anesthesia Reactions: No Hx Malignant Hyperthermia: No - Suicidal Assessment Feels Threatened In Home Enviroment: No Family/Social History - Physician Review Nursing Documentation Reviewed: Yes Family/Social History: Unknown Family HX Smoking Status: Light Smoker < 10 Cigarettes Daily Hx Alcohol Use: No Hx Substance Use: No Hx Substance Use Treatment: No Allergies/Home Meds Allergies/Adverse Reactions: Allergies adhesive tape Allergy (Verified 04/25/16 23:36) REDNESS naproxen Allergy (Verified 04/25/16 23:36) VOMITING ciprofloxacin Adverse Reaction (Verified 04/25/16 23:36) ANAPHYLAXIS Home Medications: Home Meds Medication Instructions Recorded Confirmed Furosemide [Lasix] 80 mg PO DAILY 03/06/15 05/13/16 Simvastatin 20 mg PO DAILY 04/25/16 05/13/16 Review of Systems - Physician Review All systems were reviewed & negative as marked: Yes - Review of Systems Constitutional: absent: Fevers Respiratory: SOB Cardiovascular: absent: Chest Pain Gastrointestinal: Abdominal Pain, Diarrhea, Nausea, Vomiting Physical Exam Vital Signs Reviewed: Yes Vital Signs Temp Pulse Resp BP Pulse Ox 05/13/16 17:05 97.8 F 68 24 107/57 L 90 L 05/13/16 15:12 76 18 120/87 96 05/13/16 15:11 120/87 05/13/16 10:35 97.5 F L 85 17 117/58 L 100 Temperature: Afebrile Blood Pressure: Hypotensive Pulse: Regular Respiratory Rate: Normal Appearance: Positive for: Well-Appearing, Non-Toxic, Comfortable Pain Distress: None Mental Status: Positive for: Alert and Oriented X 3 - Systems Exam Head: Present: Atraumatic, Normocephalic Pupils: Present: PERRL Extroacular Muscles: Present: EOMI Conjunctiva: Present: Normal Mouth: Present: Moist Mucous Membranes Neck: Present: Normal Range of Motion Respiratory/Chest: Present: Good Air Exchange, Rales (bilaterally at the bases) . No: Respiratory Distress, Accessory Muscle Use, Wheezes, Decreased Breath Sounds, Rhonchi Cardiovascular: Present: Regular Rate and Rhythm, Normal S1, S2. No: Murmurs Abdomen: Present: Tenderness (mild non focal tenderness with palpation), Distention, Normal Bowel Sounds. No: Peritoneal Signs, Rebound, Guarding Back: Present: Normal Inspection Upper Extremity: Present: Normal Inspection. No: Cyanosis, Edema Lower Extremity: Present: Normal Inspection, NORMAL PULSES, Other ((+)mottled appearing extremiteis, (+)pulses (+)minimal distal cyanosis). No: Edema, Swelling Neurological: Present: GCS=15, CN II-XII Intact, Speech Normal Skin: Present: Warm, Dry, Normal Color. No: Rashes Psychiatric: Present: Alert, Oriented x 3, Normal Insight, Normal Concentration Medical Decision Making ED Course and Treatment: 05/13/16 11:05 Impression: A 71 year old female with shortness of breath, abdominal pain, nausea, vomiting , and diarrhea. Differential Diagnosis include but are not limited to: CHF, worsening ascities r /o other intabdominal pathology, colitis, r/o pna. Plan: -- EKG -- Chest X-ray -- Labs -- Urinalysis -- Reassess and disposition Prior Visits: Notes and results from previous visits were reviewed. The patient last presented to the emergency department on 04/26/16 for evaluation of diffuse abdominal pain. Progress Notes: EKG: Ordered, reviewed, and independently interpreted the EKG. Rate : 81 BPM Rhythm : Paced 05/13/16 12:05 Chest X-ray: Creator : Lorenza Jaquez MD COMPARISON: Chest x-ray performed 04/26/16 FINDINGS: LUNGS: Skin fold artifact limits evaluation of the lateral chest wall and fermín thorax. Increased lucencies near the lung apices consistent with emphysema. No focal consolidation. Please note that chest x-ray has limited sensitivity for the detection of pulmonary masses. PLEURA: No significant pleural effusion identified. No definite pneumothorax . CARDIOVASCULAR: Cardiomegaly. Median sternotomy wires. Left-sided AICD. OSSEOUS STRUCTURES: Degenerative changes. VISUALIZED UPPER ABDOMEN: Unremarkable. OTHER FINDINGS: None. IMPRESSION: Cardiomegaly. Median sternotomy wires. Left-sided AICD. Emphysematous changes. 05/13/16 14:05 Abdomen/Pelvis CT: Creator : Saeid Mcgraw MD COMPARISON: 04/26/2016 FINDINGS: LOWER THORAX: Moderate cardiomegaly LIVER: Unremarkable. No gross lesion or ductal dilatation. GALLBLADDER AND BILE DUCTS: Unremarkable. PANCREAS: Unremarkable. No gross lesion or ductal dilatation. SPLEEN: Unremarkable. ADRENALS: Unremarkable. No mass. KIDNEYS AND URETERS: Unremarkable. No hydronephrosis. No solid mass. VASCULATURE: The aorta is mildly dilated measuring 3.4 cm with calcification and mural thrombus BOWEL: Unremarkable. No obstruction. No gross mural thickening. APPENDIX: Normal appendix. PERITONEUM: There is a moderate amount of ascites LYMPH NODES: Unremarkable. No enlarged lymph nodes. BLADDER: Unremarkable. REPRODUCTIVE: Unremarkable. BONES: There is disc degeneration at L3-4 and L4-5 OTHER FINDINGS: None. IMPRESSION: Moderate ascites. No other findings 05/13/16 14:[address] valdez, who is aware and is requesting patient be admit to Telemetry for need of paracentesis due to ascites. I have discussed the results and plan with the patient, who expresses understanding. Patient given the opportunity to ask question, all questions were answered and there is agreement with the plan to be admitted to the hospital. . - Lab Interpretations Lab Results: 05/13/16 11:05 05/13/16 11:05 Lab Results 05/13/16 11:05: WBC 4.7 D, RBC 5.37, Hgb 14.1, Hct 45.4, MCV 84.5, MCH 26.3, MCHC 31.1, RDW 17.1 H, Plt Count 164, MPV 10.2, Gran % 70.9 H, Lymph % (Auto) 21.5 L, [place] % (Auto) 6.5 H, Eos % (Auto) 0.9 L, Baso % (Auto) 0.2, Gran # 3.30 , Lymph # 1.0 L, [place] # 0.3, Eos # 0.0, Baso # 0.01, PT 22.9 H, INR 2.12 H, APTT 37.9 H, Sodium 140, Potassium 4.8, Chloride 100, Carbon Dioxide 31, Anion Gap 14, BUN 16, Creatinine 0.6, Est GFR ( Amer) > 60, Est GFR (Non-Af Amer) > 60, Random Glucose 126 H, Calcium 8.5, Total Bilirubin 0.8, AST 25, ALT 25, Alkaline Phosphatase 151 H, Lactate Dehydrogenase 584, Total Creatine Kinase 62, Troponin I 0.03, NT-Pro-B Natriuret Pep 5330 H, Total Protein 7.4, Albumin 3.5, Globulin 3.9, Albumin/Globulin Ratio 0.9 L, Amylase 44, Lipase 33, Digoxin 1.5 05/13/16 11:00: Urine Color Yellow, Urine Appearance Clear, Urine pH 6.0, Ur Specific [place] >= 1.030, Urine Protein >=300 H, Urine Glucose (UA) Negative, Urine Ketones Negative, Urine Blood Trace-intact H, Urine Nitrate Negative, Urine Bilirubin Negative, Urine Urobilinogen 1.0 H, Ur Leukocyte Esterase Negative, Urine RBC 1 - 3, Urine WBC 0 - 2, Ur Epithelial Cells Many, Urine Bacteria Trace I have reviewed the lab results: Yes - RAD Interpretation Radiology Orders: 05/13/16 11:09 CHEST PORTABLE [RAD] Stat 05/13/16 11:39 ABD & PELVIS IV CONTRAST ONLY [CT] Stat - Medication Orders Current Medication Orders: Acetaminophen (Tylenol 325mg Tab) 650 mg PO Q6H PRN PRN Reason: Fever >100.4 F Digoxin (Lanoxin Elixir Soln) 0.25 mg PO DAILY FARIHA Diphenhydramine HCl (Benadryl) 25 mg PO HS PRN PRN Reason: Insomnia Famotidine (Pepcid) 20 mg PO 1000,2200 FARIHA Furosemide (Lasix) 80 mg PO DAILY FARIHA Dobutamine HCl/Dextrose (Dobutamine/Dextrose 5% 500mg/250ml) 250 mls @ 4.865 mls/hr IV .Q24H PRN; Protocol; 2.5 MCG/KG/MIN PRN Reason: TITRATE PER PROTOCOL Discontinued Medications Furosemide (Lasix) 40 mg IVP STAT STA Stop: 05/13/16 14:16 Last Admin: 05/13/16 15:11 Dose: 40 MG MAR Blood Pressure Document 05/13/16 15:11 SRE (Rec: 05/13/16 15:12 SRE [id number]) Blood Pressure Blood Pressure (100/60-150/90) 120/87 IVP Administration Document 05/13/16 15:11 SRE (Rec: 05/13/16 15:12 SRE [id number]) Charges for Administration # of IVP Administrations 1 Iohexol (Omnipaque 350 100 Ml) Confirm Administered Dose 350 mg .ROUTE .STK-MED ONE Stop: 05/13/16 13:13 - Scribe Statement The provider has reviewed the documentation as recorded by the Scribe Jenni Dowling Provider Scribe Attestation: All medical record entries made by the Scribe were at my direction and personally dictated by me. I have reviewed the chart and agree that the record accurately reflects my personal performance of the history, physical exam, medical decision making, and the department course for this patient. I have also personally directed, reviewed, and agree with the discharge instructions and disposition. Disposition/Present on Arrival - Present on Arrival Any Indicators Present on Arrival: No History of DVT/PE: No History of Uncontrolled Diabetes: No Urinary Catheter: No History of Decub. Ulcer: No History Surgical Site Infection Following: None - Disposition Have Diagnosis and Disposition been Completed?: Yes Diagnosis: CHF (congestive heart failure), Ascites Disposition Time: 04:00 Patient Problems: Current Active Problems Problem Status Diagnosed Ascites Acute CHF (congestive heart failure) Acute Cardiomyopathy Acute Fall Acute Falls frequently Acute Condition: FAIR
[2016-05-13 11:32] LABS: INR 2.12 (0.93-1.08); PARTIAL THROMBOPLASTIN TIME 37.9 Seconds (23.7-30.8)
[2016-05-13 11:33] LABS: URINE BACTERIA TRACE (NEG); URINE EPITHELIAL CELLS MANY /hpf (0-5); URINE WBC 0 - 2 /hpf (0-6)
[2016-05-13 11:34] LABS: ALB/GLOB RATIO 0.9 (1.1-1.8); ALKALINE PHOSPHATASE 151 U/L (38-133); ALT/SGPT 25 U/L (7-56); AMYLASE 44 U/L (35-125); AST/SGOT 25 U/L (15-39); BILIRUBIN,TOTAL 0.8 mg/dL (0.2-1.3); BLOOD UREA NITROGEN 16 mg/dL (7-21); CALCIUM 8.5 mg/dL (8.4-10.5); CARBON DIOXIDE 31 mmol/L (21-33); CHLORIDE 100 mmol/L (95-110); GFR AFRICAN-AMERICAN > 60; GLUCOSE,RANDOM 126 mg/dL (70-110); LIPASE 33 U/L (23-300); POTASSIUM 4.8 mmol/L (3.6-5.0); SODIUM 140 mmol/L (132-148); TOTAL PROTEIN 7.4 g/dL (5.8-8.3)
--- NOTE | 2016-05-13 12:06 | RAD ---
HISTORY: sob COMPARISON: Chest x-ray performed 04/26/16 TECHNIQUE: Chest, one view. FINDINGS: LUNGS: Skin fold artifact limits evaluation of the lateral chest wall and fermín thorax. Increased lucencies near the lung apices consistent with emphysema. No focal consolidation. Please note that chest x-ray has limited sensitivity for the detection of pulmonary masses. PLEURA: No significant pleural effusion identified. No definite pneumothorax . CARDIOVASCULAR: Cardiomegaly. Median sternotomy wires. Left-sided AICD. OSSEOUS STRUCTURES: Degenerative changes. VISUALIZED UPPER ABDOMEN: Unremarkable. OTHER FINDINGS: None. IMPRESSION: Cardiomegaly. Median sternotomy wires. Left-sided AICD. Emphysematous changes.
[2016-05-13 12:26] LABS: TROPONIN I 0.03 ng/mL
[2016-05-13] MEDS ORDERED: Iohexol 350 MG/100 ML VIAL ONE (13:12)
--- NOTE | 2016-05-13 14:05 | CT ---
PROCEDURE: CT Abdomen and Pelvis with contrast HISTORY: abd pain, diarrhea COMPARISON: 04/26/2016 TECHNIQUE: Contrast dose: 100 cc of Omni 350 Radiation dose: Total exam DLP = 467 mGy-cm. This CT exam was performed using one or more of the following dose reduction techniques: Automated exposure control, adjustment of the mA and/or kV according to patient size, and/or use of iterative reconstruction technique. FINDINGS: LOWER THORAX: Moderate cardiomegaly LIVER: Unremarkable. No gross lesion or ductal dilatation. GALLBLADDER AND BILE DUCTS: Unremarkable. PANCREAS: Unremarkable. No gross lesion or ductal dilatation. SPLEEN: Unremarkable. ADRENALS: Unremarkable. No mass. KIDNEYS AND URETERS: Unremarkable. No hydronephrosis. No solid mass. VASCULATURE: The aorta is mildly dilated measuring 3.4 cm with calcification and mural thrombus BOWEL: Unremarkable. No obstruction. No gross mural thickening. APPENDIX: Normal appendix. PERITONEUM: There is a moderate amount of ascites LYMPH NODES: Unremarkable. No enlarged lymph nodes. BLADDER: Unremarkable. REPRODUCTIVE: Unremarkable. BONES: There is disc degeneration at L3-4 and L4-5 OTHER FINDINGS: None. IMPRESSION: Moderate ascites. No other findings
--- NOTE | 2016-05-13 14:12 | CARD ---
APPROVED REPORT EKG Measurement Heart [id number] <Conclusion> Electronic ventricular pacemaker
[2016-05-13] MEDS: Furosemide 40 mg/5 mL Oral Soln UD PO SCH (18:15)
[2016-05-13] MEDS: DOBUTamine 500mg/250ml D5W 250 ML IV PRN (18:20)
--- NOTE | 2016-05-13 21:47 | HP ---
HISTORY OF PRESENT ILLNESS: The patient is a 71-year-old female with recurrent admissions for CHF, w ho presents to the Emergency Department with increasing abdominal pain. The patient denies any chest pain or shortness of breath. She has dyspnea with mild exertion. No nausea, no vomiting, no diarrh ea. She is complaining of abdominal pain. No melena, no bright red blood per rectum. She has had r ecurrent abdominal paracentesis by Dr. Yaw Leonard for intractable ascites. PAST MEDICAL HISTORY: Includes ischemic cardiomyopathy with recurrent CHF, status post CABG/AICD. T he patient has paroxysmal atrial fibrillation on Coumadin, type 2 diabetes mellitus which is diet con trolled, and COPD. PAST SURGICAL HISTORY: Includes status post CABG/AICD. CURRENT MEDICATIONS: Include Benadryl 25 mg at bedtime, Coumadin 3 mg daily, digoxin 0.25 mg daily, Lasix 80 mg daily, Lipitor 10 mg daily, and Pepcid 20 mg daily. ALLERGIES: INCLUDE NAPROSYN, CIPROFLOXACIN, AND ADHESIVE TAPE. SOCIAL HISTORY: The patient has no history of tobacco or alcohol use. She is independent with ADLs, and lives with her grandson. She now requires some assistance with IADLs. REVIEW OF SYSTEMS: Essentially as above. There is no fever, no chills, no cough, no hemoptysis. On physical examination, the patient is a somewhat cachectic female in no acute distress. VITAL SIGNS: Blood pressure 120/87, pulse 76, temperature 97.5, respiratory rate 18. HEENT: Head is normocephalic, atraumatic. Pupils equal, round, reactive to light. Extraocular move ments intact. NECK: Supple, no thyromegaly, no carotid bruit. LUNGS: Show a few bibasilar rales. HEART: Regular rate and rhythm with a grade II/ systolic murmur. AICD in the left chest wall is i ntact. ABDOMEN: Soft, nontender, slightly distended with no guarding, no rebound. Bowel sounds are normoac tive. EXTREMITIES: Without clubbing or edema. There is a bluish discoloration of the toes and feet bilate rally. Dorsalis pedis and posterior tibial pulses are diminished, but palpable elaborate. NEUROLOGICALLY: The patient is awake and responsive without focal, sensory, or motor deficits. SKIN: Warm and dry. LABORATORY DATA: WBC is 4.7, hemoglobin 14.1, hematocrit 45.4. Sodium 140, potassium 4.8, chloride 100, CO2 of 31, BUN 16, creatinine 0.6, glucose 126. BNP is elevated at 5,330. Troponin is 0.03. P T is 22.9, INR 2.12. Digoxin level was 1.5. Chest x-ray shows cardiomegaly with an AICD device in the left chest wall. CT scan of the abdomen sh ows moderate ascites and some mural thrombus involving the area aorta. IMPRESSION: 1. Abdominal pain, rule out mesenteric ischemia versus secondary to ascites. 2. Ischemic cardiomyopathy with recurrent congestive heart failure, and ascites. 3. Coronary artery disease status post coronary artery bypass grafting/AICD. 4. Paroxysmal atrial fibrillation. 5. Type 2 diabetes mellitus/diet controlled. 6. Chronic obstructive pulmonary disease. 7. 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 PLAN: The patient will be admitted to telemetry unit. We will obtain a cardiology consult with Dr. Roy/Aldair. I will start low dose IV dobutamine, as well as IV Lasix and low flow oxygen. Will con tinue present medications, and a heart-healthy diet. Regular insulin coverage as per low dose insuli n coverage protocol. Will obtain a consultation from Dr. Yaw Leonard and abdominal aortic ultrasound to rule out mural thrombus involving the aorta. Will hold Coumadin. Social work for discharge plan selam. Garcia Valdez JD, MD cc: [id number] TT: 05/13/2016 21:46:26 jn
[2016-05-13] MEDS ORDERED: Pneumococcal 23-Valent Vaccine IM ONE (23:29)
--- NOTE | 2016-05-14 08:42 | CON ---
DATE: 05/13/2016 SERVICE: Cardiology. CONSULTING PHYSICIAN: Dr. Tonia Quinteros. REASON FOR CONSULTATION: Shortness of breath, abdominal pain, swelling of the leg, decompensated con gestive heart failure, acute on chronic secondary to systolic dysfunction. BRIEF CLINICAL HISTORY: A 71-year-old female with past medical history significant for coronary arpit ry disease, history of PTCA pre-CABG and post-CABG, status post MVR, status post AICD, multiple admis sions with CHF, abdominal distention, multiple abdominal paracenteses. Recently discharged after abd ominal paracentesis, came in with distention of abdomen, swelling of the lower extremity and shortnes s of breath. PAST MEDICAL HISTORY: Significant for longstanding history of coronary artery disease, started in with inferior wall SD, status post TPA. Then, the patient had multiple PTCAs during the course of time. Then, the patient had coronary artery bypass surgery at [facility]. Later on, th e patient had mitral valve repair and a CABG. Post-CABG, the patient underwent PTCA and then patient had AICD in [facility]. Multiple admissions with decompensated congestive heart failure , ischemic cardiomyopathy, severely decreased LV function, off oral hypoglycemic agent because the pa tient becomes hypoglycemic. PAST SURGICAL HISTORY: Significant for incarcerated hernia, status post surgical repair, hypertensio n, history of AICD, history of open heart surgery and mitral valve repair, multiple abdominal paracen teses. SOCIALHISTORY: David smoking. Denies any history of alcohol abuse. ALLERGIES: No known drug allergy. CURRENT MEDICATIONS: The patient at home was taking warfarin/Coumadin, simvastatin, furosemide, Amanda dryl and digoxin. REVIEW OF SYSTEMS: As per HPI. PHYSICAL EXAMINATION: VITAL SIGNS: Temperature afebrile, heart rate 68, blood pressure 107/57. HEENT: PERRLA. Extraocular muscles intact. NECK: Supple. No carotid bruits. No thyromegaly. CHEST: Clear to auscultation. HEART: S1, S2 regular. ABDOMEN: Soft. EXTREMITIES: Clubbing and cyanosis negative. LABORATORY DATA: WBC 4.7, hemoglobin 14.9, hematocrit 45.4, platelet count 164. Chemistry shows sod ium 140, potassium 4.0, chloride 100, carbon dioxide 31, anion gap of 14, BUN 16, creatinine 0.6. BN P 5330. IMPRESSION: Severe abdominal distention, probably large ascites, decompensated congestive heart fail ure, acute on chronic secondary to systolic dysfunction, diabetes, hypertension, hyperlipidemia, pravin nary artery disease, status post coronary artery bypass graft, status post automatic implantable card ioverter-defibrillator. Last echo the patient had 04/14/2015, ejection fraction 20-25%, trace to mild mitral regurgitation, status post mitral valve repair, severe tricuspid regurgitation, right ventricu lar systolic pressure 51, pulmonary hypertension. INR 2.12, therapeutic. RECOMMENDATION: Dobutrex was started by Dr. Valdez. Continue digoxin, Lasix, furosemide. The patien t is not on Coumadin, having ultrasound for IVC, iliac duplex ultrasound. We will follow the result of ultrasound. The patient is on way for ultrasound examination. We will follow with you. Thank you, Dr. Valdez, for providing the opportunity in taking care of the patient. We will repeat th e blood workup in the morning. Tonia Quinteros MD cc: [id number] TT: 05/14/2016 08:42:10 Confirmation # [id number] Dictation # [id number] tn
[2016-05-14] MEDS: Digoxin 0.05 mg/mL Elixir 5mL PO SCH (09:26)
[2016-05-14] MEDS: Furosemide 40 mg/5 mL Oral Soln UD PO SCH (09:26)
--- NOTE | 2016-05-14 14:03 | PN ---
DATE: 05/14/2016 SUBJECTIVE: The patient is lying in bed in no acute distress. She denies chest pain or shortness of breath. OBJECTIVE: VITAL SIGNS: Blood pressure 102/63, temperature 98.7, pulse 53, respiratory rate 19. LUNGS: Show bibasilar rales. HEART: Regular rate and rhythm. ABDOMEN: Soft, slightly distended, nontender, bowel sounds are normoactive. EXTREMITIES: Cyanotic changes of the toes have resolved. There is no edema. NEUROLOGIC: The patient is awake and oriented x 3 without focal sensory or motor deficits. SKIN: Warm and dry. IMPRESSION: 1. Abdominal pain, rule out mesenteric ischemia versus secondary to ascites. 2. Ischemic cardiomyopathy with recurrent congestive heart failure and ascites. 3. Coronary artery disease, status post coronary artery bypass graft/automatic implantable cardiover ter-defibrillator. 4. Paroxysmal atrial fibrillation on Coumadin. 5. Type 2 diabetes mellitus, diet controlled. 6. Chronic obstructive pulmonary disease. 7. Blue toe syndrome, resolved. The patient probably had cyanosis of the lower extremities due to l ow cardiac output, which has improved on IV dobutamine. PLAN: Continue Lasix, low flow oxygen and IV dobutamine. Cardiology consult, Dr. Quinteros, is appreciat ed. Continue regular insulin coverage. Follow up with Dr. Yaw Leonard for possible abdominal parace ntesis. Abdominal aortic ultrasound result is pending. Garcia Valdez JD, MD cc: [id number] TT: 05/14/2016 14:03:16 Confirmation # [id number] Dictation # [id number] mayela
[2016-05-14] MEDS: Insulin Reg-LOW-Coverage SC SCH ×2 (17:31→21:29)
--- NOTE | 2016-05-14 18:53 | PN ---
DATE: 05/14/2016 REASON FOR CONSULTATION AND FOLLOWUP: Shortness of breath, abdominal pain, swelling of the leg, deco mpensated congestive heart failure, acute on chronic systolic dysfunction. BRIEF CLINICAL HISTORY: A 71-year-old female with a past medical history significant for ischemic ca rdiomyopathy, status post CAD that started in 1989, status post TPA, status post multiple PTCA, statu s post coronary artery bypass graft, status post MVR, admitted with decompensated congestive heart fa ilure, abdominal distention and ascites. PHYSICAL EXAMINATION: VITAL SIGNS: Temperature afebrile, heart rate , blood pressure 102/63. HEENT: PERRLA. Extraocular muscles intact. NECK: Supple. No carotid bruits. No thyromegaly. CHEST: Clear to auscultation. HEART: S1, S2 regular. ABDOMEN: Soft. EXTREMITIES: Clubbing and cyanosis negative. LABORATORY DATA: Blood workup as follows: WBC 4.3, hemoglobin , hematocrit 45.4, platelet coun t 164. Chemistry shows sodium 140, potassium 4.8, chloride 100, carbon dioxide 31, anion gap of 14, BUN 16, creatinine 0.6. BNP 5330. IMPRESSION: Decompensated congestive heart failure, diabetes, hypertension, hyperlipidemia, coronary artery disease, coronary artery bypass graft, status post percutaneous transluminal coronary angiopl asty, status post mitral valve regurgitation, status post automatic implantable cardioverter-defibril lator. RECOMMENDATION: Continue diuretics, continue Dobutrex, continue digoxin. We will start Coumadin karen k and follow up PT/INR in the morning. Thank you, Dr. Valdez, for providing the opportunity in taking care of the patient. Will follow with you. Tonia Quinteros MD cc: [id number] TT: 05/14/2016 18:52:54 Confirmation # [id number] Dictation # [id number] mayela
[2016-05-15] MEDS: Insulin Reg-LOW-Coverage SC SCH ×4 (07:55→23:06)
[2016-05-15 09:11] LABS: INR 1.63 (0.93-1.08)
[2016-05-15] MEDS: Digoxin 0.05 mg/mL Elixir 5mL PO SCH (09:11)
[2016-05-15] MEDS: Furosemide 40 mg/5 mL Oral Soln UD PO SCH (09:11)
--- NOTE | 2016-05-15 14:10 | PN ---
DATE: 05/15/2016 REASON FOR CONSULTATION AND FOLLOWUP: Shortness of breath, abdominal pain, swelling of the legs, dec ompensated congestive heart failure, acute on chronic, secondary to systolic dysfunction. BRIEF CLINICAL HISTORY: A 71-year-old female with a past medical history significant for cardiomyopa thy, CAD, status post IA in 1989, status post tPA at that time and then patient had multiple PTCAs du ring the course of time and subsequently, patient had coronary artery bypass surgery at [facility] as well as MVR. Later on, patient had AICD placed. Now, patient is admitted multiple time s with decompensated congestive heart failure, ascites. Denies any chest pain now, sitting. PHYSICAL EXAMINATION: VITAL SIGNS: Temperature afebrile, heart rate , blood pressure 105/61. HEENT: PERRLA. Extraocular muscles intact. NECK: Supple. No carotid bruits. No thyromegaly. CHEST: Clear to auscultation. HEART: S1, S2 regular. ABDOMEN: Soft. EXTREMITIES: Clubbing, cyanosis negative. BLOOD WORKUP: WBC 4.3, hemoglobin 14. , hematocrit 45.4, platelet count 164. Chemistry shows so dium 140, potassium 4. , chloride 100, carbon dioxide 31, anion gap of 14, BUN , creatinine 0.6. IMPRESSION: Decompensated congestive heart failure, acute on chronic, systolic dysfunction, diabetes , hypertension, hyperlipidemia, coronary artery disease, status post coronary artery bypass graft, st atus post inferior wall myocardial infarction in 1989, status post tissue plasminogen activator at at time, status post coronary artery bypass graft, status post mitral valve replacement, history of m ultiple stents, multiple admissions with decompensated congestive heart failure, end-stage cardiomyop athy, severely decreased left ventricular function, chronic atrial fibrillation on Coumadin, not on o ral hypoglycemic agent because of recurrent hypoglycemia, subtherapeutic INR. RECOMMENDATION: Restarted Coumadin yesterday. Continue Coumadin 2 mg. Follow up PT/INR. Continue Dobutrex. Continue IV Dobutrex. We will follow with you. Thank you, Dr. Valdez, for providing us the opportunity in taking care of the patient. Overall, patie nt's condition is critical. Nursing Home prognosis is extremely poor. We will follow with you. Tonia Quinteros MD cc: [id number] TT: 05/15/2016 14:09:00 Confirmation # [id number] Dictation # [id number] en
--- NOTE | 2016-05-15 14:32 | US ---
PROCEDURE: 1. Duplex ultrasound of the abdominal aorta. HISTORY: Abdominal aortic aneurysm. PHYSICIAN(S): Yaw Leonard MD. FINDINGS: The exam is very limited by bowel gas and ascites. Only limited segments of the abdominal aorta are visualized. There appears to be an aneurysm of the mid abdominal aorta. It measures 3.9 cm in greatest transverse dimension. Unfortunately the aneurysm is not adequately visualized. The common iliac arteries are normal in caliber. IMPRESSION: 1. Mid abdominal aortic aneurysm which is not adequately visualized. A CT scan of the abdomen and pelvis without IV contrast can't adequately evaluate the aneurysm. 2. Mild to moderate ascites.
--- NOTE | 2016-05-15 15:11 | PN ---
DATE: 05/15/2016 SUBJECTIVE: The patient is lying in bed in no acute distress. She denies chest pain or shortness of breath. Her abdominal pain is improved. There is no nausea, no vomiting, no diarrhea. No melena, no bright red blood per rectum. OBJECTIVE: VITAL SIGNS: Blood pressure 113/79, temperature 97, pulse 75, respiratory rate 18. LUNGS: Clear. HEART: Regular rate and rhythm. ABDOMEN: Soft, nontender, bowel sounds are normoactive. EXTREMITIES: Without cyanosis, clubbing, or edema. NEUROLOGIC: The patient is awake and oriented x 3 without focal sensory or motor deficits. SKIN: Warm and dry. IMPRESSION: 1. Abdominal pain, possible mesenteric ischemia versus liver congestion and ascites. 2. Ischemic cardiomyopathy with recurrent congestive heart failure, and ascites. 3. Coronary artery disease, status post coronary artery bypass graft/automatic implantable cardiover ter-defibrillator. 4. Paroxysmal atrial fibrillation. 5. Type 2 diabetes mellitus/diet controlled. 6. Chronic obstructive pulmonary disease. PLAN: Continue IV dobutamine, Lasix. Cardiology, follow with Dr. Quinteros and follow with Dr. Yaw wilde for possible repeat abdominal paracentesis. Physical therapy and social work for discharge planni ng. Garcia Valdez JD, MD cc: 353 TT: 05/15/2016 14:59:35 Confirmation # [id number] Dictation # [id number]
[2016-05-15] MEDS: DOBUTamine 500mg/250ml D5W 250 ML IV PRN (17:27)
[2016-05-16 06:58] LABS: ADD MANUAL DIFF? NO
[2016-05-16 07:11] LABS: INR 1.4 (0.93-1.08)
[2016-05-16 07:18] LABS: EOS % 0.8 % (1.5-5.0); GRAN # 2.77 (1.4-6.5); GRAN % 72.3 % (50.0-68.0); HEMATOCRIT 42.2 % (36.0-48.0); LYMPH # 0.7 (1.2-3.4); LYMPH % 18.5 % (22.0-35.0); MEAN CELL VOLUME 83.7 fL (80.0-105.0); MEAN PLATELET VOLUME 10.1 fl (7.0-11.0); MONO # 0.3 (0.1-0.6); MONO % 8.4 % (1.0-6.0); PLATELET COUNT 160 10^3/uL (120.0-450.0); WHITE BLOOD COUNT 3.8 10^3/ul (4.5-11.0)
[2016-05-16 07:44] LABS: BLOOD UREA NITROGEN 18 mg/dL (7-21); CALCIUM 8.1 mg/dL (8.4-10.5); CARBON DIOXIDE 33 mmol/L (21-33); CHLORIDE 94 mmol/L (98-107); GFR AFRICAN-AMERICAN > 60; GLUCOSE,RANDOM 96 mg/dL (70-110); MAGNESIUM 1.9 mg/dL (1.7-2.2); PHOSPHOROUS 3.2 mg/dL (2.5-4.5); POTASSIUM 4.6 mmol/L (3.6-5.0); SODIUM 134 mmol/L (132-148)
[2016-05-16] MEDS: Insulin Reg-LOW-Coverage SC SCH ×4 (07:48→21:40)
[2016-05-16] MEDS: Furosemide 40 mg/5 mL Oral Soln UD PO SCH ×2 (08:57→20:31)
[2016-05-16] MEDS: Digoxin 0.05 mg/mL Elixir 5mL PO SCH ×2 (08:58→20:31)
--- NOTE | 2016-05-16 15:11 | PN ---
DATE: 05/16/2016 SUBJECTIVE: The patient is lying in bed in no acute distress. She denies chest pain or shortness of breath. There is no abdominal pain. She is status post abdominal paracentesis. OBJECTIVE: VITAL SIGNS: Blood pressure 115/77, temperature 98.1, respiratory rate 20, pulse 62. LUNGS: Clear. HEART: Regular rate and rhythm. ABDOMEN: Soft, nontender, bowel sounds are normoactive. EXTREMITIES: Without cyanosis, clubbing, or edema. NEUROLOGIC: The patient is awake and oriented x 3 without focal sensory or motor deficits. SKIN: Warm and dry. LABORATORY DATA: WBC is 3.8, hemoglobin 13.1, hematocrit 42.2. Sodium 134, potassium 4.6, chloride 94, CO2 33, BUN 12, creatinine 0.8, glucose 96. IMPRESSION: 1. Abdominal pain, possibly secondary to mesenteric ischemia versus liver congestion with ascites, s tatus post abdominal paracentesis. 2. Ischemic cardiomyopathy with recurrent congestive heart failure. 3. Coronary artery disease status post coronary artery bypass graft/automatic implantable cardiovert er-defibrillator. 4. Paroxysmal atrial fibrillation on Coumadin. 5. Type 2 diabetes mellitus/diet controlled. 6. Chronic obstructive pulmonary disease. PLAN: Continue IV dobutamine and Lasix. Cardiology followup with Dr. Quinteros. Physical therapy and so cial work for discharge planning. Garcia Valdez JD, MD cc: 353 TT: 05/16/2016 15:11:11 Confirmation # [id number] Dictation # [id number] dn
--- NOTE | 2016-05-16 15:14 | PN ---
DATE: 05/16/2016 REASON FOR CONSULTATION AND FOLLOWUP: Shortness of breath, abdominal pain, swelling of legs, decompe nsated congestive heart failure, acute on chronic, systolic dysfunction. BRIEF CLINICAL HISTORY: A 71-year-old female with a past medical history significant for cardiomyopa thy, CAD, status post AL, started 1989. Since then, initially patient did tPA for inferior wall AL a nd then patient had multiple PTCAs and then later on, patient had open heart surgery and mitral valve repair at [facility] and patient had AICD as well. Recently, patient had multiple admis sions for decompensated congestive heart failure, recurrent ascites. Admitted again this time with d ecompensated congestive heart failure, ascites and abdominal distention and swelling of the legs, on Dobutrex and diuretics. Coumadin was restarted again. PHYSICAL EXAMINATION: VITAL SIGNS: Temperature afebrile, heart rate , blood pressure 115/77. HEENT: PERRLA. Extraocular muscles intact. NECK: Supple. No carotid bruit, no thyromegaly. CHEST: Clear to auscultation. HEART: S1, S2 regular. ABDOMEN: Soft. EXTREMITIES: Clubbing, cyanosis negative. BLOOD WORKUP: WBC 3.8, hemoglobin 13. , hematocrit 42.2, platelet count 160. Chemistry shows so dium 134, potassium , chloride 94, carbon dioxide 33, anion gap of 12, BUN 80, creatinine 0.8. INR 1.4. IMPRESSION: Subtherapeutic INR, decompensated congestive heart failure, cardiomyopathy, coronary art ang disease, ascites, diabetes, not on oral hypoglycemic agents because of recurrent hypoglycemia. RECOMMENDATION: We will give 4 mg of Coumadin today and 2 from tomorrow. We will follow PT/INR. Thank you, Dr. Valdez, for providing us the opportunity in taking care of the patient. We will follow with you. Tonia Quinteros MD cc: 305 TT: 05/16/2016 15:13:35 Confirmation # [id number] Dictation # [id number] en
[2016-05-17] MEDS: Insulin Reg-LOW-Coverage SC SCH ×4 (07:40→22:00)
[2016-05-17 07:55] LABS: INR 1.17 (0.93-1.08)
[2016-05-17] MEDS: Furosemide 40 mg/5 mL Oral Soln UD PO SCH (10:06)
[2016-05-17] MEDS: Digoxin 0.05 mg/mL Elixir 5mL PO SCH (10:07)
--- NOTE | 2016-05-17 11:29 | PN ---
DATE: 05/17/2016 REASON FOR CONSULTATION AND FOLLOWUP: Shortness of breath, abdominal pain, swelling of the leg; deco mpensated congestive heart failure, acute on chronic, secondary to systolic dysfunction. BRIEF CLINICAL HISTORY: This is a 71-year-old female with past medical history significant for cardi omyopathy, CAD status post VT in 1989, status post TPA, status post multiple PTCAs, CABG with decompe nsated congestive heart failure. PHYSICAL EXAMINATION: VITAL SIGNS: Temperature afebrile, heart rate 80, blood pressure 111/60. HEENT: PERRLA. Extraocular muscles intact. NECK: Supple. No carotid bruits. No thyromegaly. CHEST: Clear to auscultation. HEART: S1, S2 ____. ABDOMEN: Soft. EXTREMITIES: Clubbing and cyanosis negative. BLOOD WORKUP: WBC 3.8, hemoglobin 13.1, hematocrit 42.2, platelet count 160. Chemistry shows sodium 136, potassium 4.____, chloride 94, carbon dioxide 33, anion gap of 12, BUN 18, creatinine 0.8. IMPRESSION: Decompensated congestive heart failure, acute on chronic systolic dysfunction, chronic a trial fibrillation, diabetes, hypertension, hyperlipidemia, off oral hypoglycemic because of recurren t hypoglycemia, cardiomyopathy, atrial fibrillation, recurrent ascites. RECOMMENDATION: Continue anticoagulation. Continue digoxin. Continue Lasix. The patient is going for abdominal large volume paracentesis. Will follow with you. Thank you, Dr. Valdez, for providing this opportunity in taking care of the patient. Will follow with you. We will check PT/INR in the morning. Tonia Quinteros MD cc: 305 TT: 05/17/2016 11:26:33 Confirmation # [id number] Dictation # [id number] bang
--- NOTE | 2016-05-17 15:26 | PN ---
DATE: 05/17/2016 SUBJECTIVE: The patient is lying in bed in no acute distress. She denies chest pain or shortness of breath. OBJECTIVE: VITAL SIGNS: Blood pressure 113/73, temperature 97.6, pulse 80, respiratory rate 20. LUNGS: Clear. HEART: Regular rate and rhythm. ABDOMEN: Soft, nontender, bowel sounds are normoactive. EXTREMITIES: Without cyanosis, clubbing, or edema. NEUROLOGIC: The patient is awake and oriented x 3 without focal sensory or motor deficits. SKIN: Warm and dry. IMPRESSION: 1. Abdominal pain, probable mesenteric ischemia versus liver congestion with ascites, status post ab dominal paracentesis. 2. Ischemic cardiomyopathy with recurrent congestive heart failure. 3. Coronary artery disease status post coronary artery bypass graft/automatic implantable cardiovert er-defibrillator. 4. Paroxysmal atrial fibrillation. 5. Type 2 diabetes mellitus/diet controlled. 6. Chronic obstructive pulmonary disease. PLAN: We will discontinue IV dobutamine. Continue cardiology followup with Dr. Quinteros. therapy tech apy and social work for discharge planning. Garcia Valdez JD, MD cc: 353 TT: 05/17/2016 15:25:30 Confirmation # [id number] Dictation # [id number] an
[2016-05-18 01:49] VITALS: O2SAT 99
[2016-05-18 05:42] VITALS: TEMP 97.5
[2016-05-18 08:02] LABS: INR 1.06 (0.93-1.08)
[2016-05-18] MEDS: Insulin Reg-LOW-Coverage SC SCH (08:08)
--- NOTE | 2016-05-18 09:22 | PN ---
DATE: 05/18/2016 REASON FOR CONSULTATION AND FOLLOWUP: Shortness of breath, abdominal pain, swelling of the leg, deco mpensated congestive heart failure, acute on chronic secondary to systolic dysfunction. BRIEF CLINICAL HISTORY: A 71-year-old female with a past medical history significant for cardiomyopa thy, CAD, status post [place] in 1998, status post TPA. Since then, the patient has multiple PTCAs, CABG, MVR, status post AICD, admitted with decompensated congestive heart failure, one of multiple admissi ons for decompensated congestive heart failure, on Dobutrex and Lasix. PHYSICAL EXAMINATION: VITAL SIGNS: Temperature afebrile, heart rate 78, blood pressure 116/82. HEENT: PERRLA. Extraocular muscles intact. NECK: Supple. No carotid bruits or thyromegaly. CHEST: Clear to auscultation. HEART: S1, S2 regular. ABDOMEN: Soft. EXTREMITIES: Clubbing and cyanosis negative. BLOOD WORKUP: As follows: WBC 3.8, hemoglobin 13.8, hematocrit 42.2, platelet count 160. Chemistry shows sodium 134, potassium 4.6, chloride 94, carbon dioxide 33, anion gap of 12, BUN 18, creatinine 0.8. IMPRESSION: Decompensated congestive heart failure, acute on chronic secondary to systolic dysfuncti on, cardiomyopathy, subtherapeutic INR, status post abdominal paracentesis, ascites, diabetes, hypert ension, hyperlipidemia, off oral anticoagulation because of recurrent ____, status post abdominal par acentesis 2.7 L straw-colored fluid done yesterday and is status post mitral valve replacement, chron ic atrial fibrillation. RECOMMENDATION: We will start again Coumadin 4 mg today and then 2 mg from tomorrow. Continue diure tics, continue supportive care. Overall, the patient's condition is critical. [facility] prognosis is extremely poor. Tonia Quinteros MD cc: 305 TT: 05/18/2016 09:21:17 Confirmation # [id number] Dictation # [id number] tn
[2016-05-18] MEDS: Furosemide 40 mg/5 mL Oral Soln UD PO SCH (10:58)
[2016-05-18] MEDS: Digoxin 0.05 mg/mL Elixir 5mL PO SCH (11:00)
[2016-05-18 12:36] VITALS: PULSE 82
[2016-05-18 13:35] VITALS: BP 111/83; RESP 18
--- NOTE | 2016-05-18 19:25 | DS ---
HOSPITAL COURSE: The patient is a 71-year-old female with a history of recurrent CHF due to ischemic cardiomyopathy, who was admitted through the Emergency Department on 05/13/2016 with abdominal pain. The patient underwent an abdominal paracentesis for ascites by Dr. Yaw Leonard with improvement of her symptoms. She was seen in consultation by cardiology, Dr. Roy/Aldair. She received IV Lasix, I V dobutamine and oxygen. At the present time, she denies any chest pain, shortness of breath and is medically stable for discharge. PHYSICAL EXAMINATION: VITAL SIGNS: Blood pressure 111/83, temperature 97.5, pulse 82, respiratory rate 18. LUNGS: Clear. HEART: Regular rate and rhythm. ABDOMEN: Soft, nontender, bowel sounds are normoactive. EXTREMITIES: Without cyanosis, clubbing, or edema. NEUROLOGIC: The patient is awake and oriented x 3 without focal sensory or motor deficits. SKIN: Warm and dry. IMPRESSION: 1. Abdominal pain, probable mesenteric ischemia due to low cardiac output versus secondary to liver congestion with ascites, status post abdominal paracentesis. 2. Ischemic cardiomyopathy with recurrent congestive heart failure. 3. Coronary artery disease, status post coronary artery bypass graft/automatic implantable cardiover ter-defibrillator. 4. Paroxysmal atrial fibrillation. 5. Type 2 diabetes mellitus, diet controlled. 6. Chronic obstructive pulmonary disease. PLAN: The patient will be discharged to home today in stable condition on the following medications, warfarin 3 mg daily, digoxin 0.25 mg daily, Lasix 80 mg daily, Pepcid 20 mg b.i.d. and Benadryl 25 m g at bedtime. She will be maintained on a heart-healthy diet, activities ad libitum. She will be se en in my office in the next 1-2 weeks. Garcia Valdez JD, MD cc: 353 TT: 05/18/2016 19:24:53 tn
--- NOTE | 2016-05-24 07:53 | US ---
PROCEDURE: Ultrasound guided paracentesis. HISTORY: Cardiomyopathy. Recurrent ascites with abdominal pain and distension. Needs paracentesis. PHYSICIAN(S): Yaw Leonard MD. TECHNIQUE: The relative risks and indications for the procedure were explained to the patient and informed written consent obtained. Sonography of the abdomen was performed in a supine position. This revealed a moderate amount of non-loculated ascites, greatest in the right lower quadrant. A puncture site was selected and the area was prepped and draped in the usual sterile fashion. 1% Xylocaine was used to anesthetize the skin and soft tissues. A 7 Maori paracentesis catheter was trocared into the right lower quadrantand 2700 cc of brian fluid aspirated. No labs were sent IMPRESSION: Ultrasound-guided paracentesis in the right lower quadrant. 2700 cc of fluid were aspirated.
== END 2016-05-18 14:50 | disposition home or self-care (01) | DRG 393 ==
LOC: ED 10:34 → ERH 14:17 → 2RNO 17:29
PROVIDERS: ADMIT Internal Medicine; ATTEND Internal Medicine
PROC: BW40ZZZ Ultrasonography of Abdomen (ICD-10-PCS; 2016-05-13)
PROC: 0W9G3ZZ Drainage of Peritoneal Cavity, Percutaneous Approach (ICD-10-PCS; principal; 2016-05-16 12:00)
DX: K55.059 Acute (reversible) ischemia of intestine, part and extent unspecified (principal); I50.23 Acute on chronic systolic (congestive) heart failure; I75.029 Atheroembolism of unspecified lower extremity; R18.8 Other ascites; E11.649 Type 2 diabetes mellitus with hypoglycemia without coma; I27.2 Other secondary pulmonary hypertension; I08.1 Rheumatic disorders of both mitral and tricuspid valves; E78.5 Hyperlipidemia, unspecified; H91.90 Unspecified hearing loss, unspecified ear; I11.0 Hypertensive heart disease with heart failure; I25.10 Atherosclerotic heart disease of native coronary artery without angina pectoris; I25.2 Old myocardial infarction; I25.5 Ischemic cardiomyopathy; I48.0 Paroxysmal atrial fibrillation; I48.2 Chronic atrial fibrillation; Z79.01 Long term (current) use of anticoagulants; J44.9 Chronic obstructive pulmonary disease, unspecified; K76.1 Chronic passive congestion of liver; Z95.5 Presence of coronary angioplasty implant and graft; Z95.1 Presence of aortocoronary bypass graft; Z95.2 Presence of prosthetic heart valve; Z95.810 Presence of automatic (implantable) cardiac defibrillator; Z90.49 Acquired absence of other specified parts of digestive tract; Z86.73 Personal history of transient ischemic attack (TIA), and cerebral infarction without residual deficits; Z79.899 Other long term (current) drug therapy; R29.6 Repeated falls; M20.42 Other hammer toe(s) (acquired), left foot; M20.41 Other hammer toe(s) (acquired), right foot; M19.90 Unspecified osteoarthritis, unspecified site; R32 Unspecified urinary incontinence; F41.9 Anxiety disorder, unspecified; F32.89 Other specified depressive episodes; F17.210 Nicotine dependence, cigarettes, uncomplicated; Z91.048 Other nonmedicinal substance allergy status; Z88.6 Allergy status to analgesic agent; Z88.1 Allergy status to other antibiotic agents; Z87.892 Personal history of anaphylaxis; R23.0 Cyanosis

== ENCOUNTER 2016-06-08 20:26 | Inpatient (IN) | payer MEDICARE, OTHER ==
[2016-06-08 20:51] VITALS: BMI 24.7
--- NOTE | 2016-06-08 21:30 | ED PDOC ---
Arrival/HPI - General Chief Complaint: Abdominal Pain Time Seen by Provider: 06/08/16 20:32 Historian: Patient - History of Present Illness Narrative History of Present Illness (Text): 06/08/16 20:32 A 71 year old female, whose past medical history includes multiple paracentesis , atrial fibrillation and hypertension, presents to the emergency department complaining of vague abdominal pain for "a long time." Patient denies any nausea or vomiting. Patient notes to have a bowel movement 2 hours prior to arrival. Patient denies any hematuria or dysuria. Patient reports her stomach is not getting any bigger since her last paracentesis. Patient denies any fever , or other complaints at this time. PMD: Dr. Valdez Time/Duration: Other Symptom Onset: Sudden Symptom Course: Unchanged Quality: Other Activities at Onset: Rest Context: Home Past Medical History - Provider Review Nursing Documentation Reviewed: Yes - Infectious Disease Hx of Infectious Diseases: None - Tetanus Immunization Tetanus Immunization: Unknown - Cardiac Hx Cardiac Disorders: Yes (NH , CAD) Hx Congestive Heart Failure: Yes Hx Hypertension: Yes - Pulmonary Hx Respiratory Disorders: Yes Hx Chronic Obstructive Pulmonary Disease (COPD): Yes - Neurological Hx Neurological Disorder: Yes Hx Transient Ischemic Attacks (TIA): Yes - HEENT Hx HEENT Disorder: Yes Hx Deafness: Yes - Renal Hx Renal Disorder: No - Endocrine/Metabolic Hx Endocrine Disorders: Yes Hx Diabetes Mellitus Type 2: Yes - Hematological/Oncological Hx Blood Disorders: Yes Hx Cancer: Yes - Integumentary Hx Dermatological Disorder: No - Musculoskeletal/Rheumatological Hx Musculoskeletal Disorders: Yes Hx Arthritis: Yes Hx Falls: Yes - Gastrointestinal Hx Gastrointestinal Disorders: Yes Hx Liver Failure: Yes Other/Comment: history of ascites/ paracenthesis done in the past - Genitourinary/Gynecological Hx Genitourinary Disorders: Yes Hx Incontinence: Yes - Psychiatric Hx Psychophysiologic Disorder: Yes Hx Anxiety: Yes Hx Depression: Yes Hx Substance Use: No - Surgical History Hx Appendectomy: Yes Hx Cardiac Catheterization: Yes (Stents x 3 PTCA) Hx Cholecystectomy: Yes Hx Coronary Stent: Yes Hx Open Heart Surgery: Yes Hx Orthopedic Surgery: Yes (laminectomy) Other/Comment: Herniated disc repair, partial colectomy, tonsilectomy - Anesthesia Hx Anesthesia: No Hx Anesthesia Reactions: No Hx Malignant Hyperthermia: No - Suicidal Assessment Feels Threatened In Home Enviroment: No Family/Social History - Physician Review Nursing Documentation Reviewed: Yes Family/Social History: Unknown Family HX Smoking Status: Current Some Days Smoker Hx Alcohol Use: No Hx Substance Use: No Hx Substance Use Treatment: No Allergies/Home Meds Allergies/Adverse Reactions: Allergies adhesive tape Allergy (Verified 06/08/16 20:51) REDNESS naproxen Allergy (Verified 06/08/16 20:51) VOMITING ciprofloxacin Adverse Reaction (Verified 06/08/16 20:51) ANAPHYLAXIS Home Medications: Home Meds Medication Instructions Recorded Confirmed Furosemide [Lasix] 80 mg PO DAILY 03/06/15 06/08/16 Simvastatin 20 mg PO DAILY 04/25/16 06/08/16 DiphenhydrAMINE [Benadryl] 2 tab PO HS 06/08/16 06/08/16 Review of Systems - Physician Review All systems were reviewed & negative as marked: Yes - Review of Systems Constitutional: absent: Fevers Gastrointestinal: Abdominal Pain. absent: Constipation, Nausea, Vomiting Genitourinary Female: absent: Dysuria, Hematuria Physical Exam Vital Signs Reviewed: Yes Vital Signs Temp Pulse Resp BP Pulse Ox 06/09/16 02:00 83 24 123/85 97 06/09/16 00:00 95 H 24 130/81 98 06/08/16 22:59 93 H 24 128/90 95 06/08/16 21:59 87 23 121/88 99 06/08/16 21:09 97.5 F L 06/08/16 21:00 95 H 24 117/68 96 Temperature: Afebrile Blood Pressure: Normal Pulse: Regular Respiratory Rate: Normal Appearance: Positive for: Well-Appearing, Non-Toxic, Comfortable, Other (Thin) Pain Distress: None Mental Status: Positive for: Alert and Oriented X 3 - Systems Exam Head: Present: Atraumatic, Normocephalic Pupils: Present: PERRL Extroacular Muscles: Present: EOMI Conjunctiva: Present: Normal Mouth: Present: Moist Mucous Membranes Neck: Present: Normal Range of Motion Respiratory/Chest: Present: Clear to Auscultation, Good Air Exchange. No: Respiratory Distress, Accessory Muscle Use Cardiovascular: Present: Normal S1, S2, Irregular Rhythm (Irregular, regular). No: Murmurs Abdomen: Present: Distention (Hepatomegaly), Normal Bowel Sounds. No: Tenderness, Peritoneal Signs, Other (No fluid wave) Upper Extremity: Present: Normal Inspection. No: Cyanosis, Edema Lower Extremity: Present: Other (Chronic venous stasis). No: Edema Neurological: Present: GCS=15, CN II-XII Intact, Speech Normal Skin: Present: Warm, Dry, Normal Color. No: Rashes Psychiatric: Present: Alert, Oriented x 3, Normal Insight, Normal Concentration Medical Decision Making ED Course and Treatment: 06/08/16 20:32 Impression: A 71 year old female with abdominal pain/ Differential Diagnosis include but are not limited to: Ascites vs. mesenteric ischemia Plan: -- Abdomen/Pelvis CT -- Labs -- Urinalysis -- Reassess and disposition Prior Visits: Notes and results from previous visits were reviewed. The patient last presented to the emergency department 05/13/16 for evaluation of shortness of breath. Progress Notes: 06/08/16 22:[address] Tavares, pending CT Abdomen and Pelvis, re-evaluation, and final disposition. - Lab Interpretations Microbiology Results: Microbiology Results 06/08/16 22:22 Urine Urine Culture - Final Enterococcus Faecalis Lab Results: 06/08/16 22:17 06/08/16 22:17 Lab Results 06/08/16 22:22: Urine Color Yellow, Urine Appearance Sl cloudy, Urine pH 5.5, Ur Specific [place] >= 1.030, Urine Protein 30 H, Urine Glucose (UA) Negative, Urine Ketones Negative, Urine Blood Small H, Urine Nitrate Negative, Urine Bilirubin Small H, Urine Urobilinogen 0.2, Ur Leukocyte Esterase Moderate H, Urine RBC 0 - 2, Urine WBC 2 - 5, Ur Epithelial Cells 1 - 3, Amorphous Sediment Few, Urine Bacteria Few 06/08/16 22:17: Sodium 137, Potassium 4.6, Chloride 100, Carbon Dioxide 30, Anion Gap 12, BUN 19, Creatinine 0.7, Est GFR ( Amer) > 60, Est GFR (Non- Af Amer) > 60, Random Glucose 145 H, Calcium 8.6, Total Bilirubin 1.0, AST 29, ALT 27, Alkaline Phosphatase 128, NT-Pro-B Natriuret Pep 5630 H, Total Protein 7.6, Albumin 3.5, Globulin 4.1, Albumin/Globulin Ratio 0.9 L, Amylase 46, Lipase 19 L 06/08/16 22:17: PT 28.1 H, INR 2.60 H, APTT 40.2 H 06/08/16 22:17: WBC 4.1 L, RBC 5.33, Hgb 14.1, Hct 44.9, MCV 84.2, MCH 26.5, MCHC 31.4, RDW 17.4 H, Plt Count 141, MPV 10.6, Gran % 75.8 H, Lymph % (Auto) 16.9 L, [place] % (Auto) 6.3 H, Eos % (Auto) 0.5 L, Baso % (Auto) 0.5, Gran # 3.14 , Lymph # 0.7 L, [place] # 0.3, Eos # 0.0, Baso # 0.02 I have reviewed the lab results: Yes - RAD Interpretation Radiology Orders: 06/08/16 21:00 ABD PELVIS PO & IV CONTRAST [CT] Stat - Medication Orders Current Medication Orders: Digoxin (Lanoxin) 0.25 mg PO 1400 [facility] Last Admin: 06/10/16 13:20 Dose: 0.25 mg Diphenhydramine HCl (Benadryl) 50 mg PO HS [facility] Last Admin: 06/10/16 22:57 Dose: 50 mg Furosemide (Lasix) 80 mg PO DAILY [facility] Last Admin: 06/11/16 10:07 Dose: 80 mg Warfarin Sodium (Coumadin) 3 mg PO 1800 [facility] PRN Reason: Protocol Last Admin: 06/10/16 17:14 Dose: 3 mg Discontinued Medications Iohexol (Omnipaque 350 100 Ml) Confirm Administered Dose 350 mg .ROUTE .STK-MED ONE Stop: 06/08/16 21:55 Iohexol (Omnipaque 240 (50 Ml)) Confirm Administered Dose 50 ml .ROUTE .STK-MED ONE Stop: 06/08/16 21:55 Pneumococcal Polyvalent Vaccine (Pneumovax 23 Vaccine) 0.5 ml IM .ONCE ONE Stop: 06/09/16 05:05 Last Admin: 06/09/16 12:04 Dose: - Scribe Statement The provider has reviewed the documentation as recorded by the Javier Dowling Provider Scribe Attestation: All medical record entries made by the Scribe were at my direction and personally dictated by me. I have reviewed the chart and agree that the record accurately reflects my personal performance of the history, physical exam, medical decision making, and the department course for this patient. I have also personally directed, reviewed, and agree with the discharge instructions and disposition. Disposition/Present on Arrival - Present on Arrival Any Indicators Present on Arrival: No History of DVT/PE: No History of Uncontrolled Diabetes: No Urinary Catheter: No History of Decub. Ulcer: No History Surgical Site Infection Following: None - Disposition Have Diagnosis and Disposition been Completed?: No Diagnosis: Abdominal pain, Ascites Disposition: HOSPITALIZED Disposition Time: 23:00 Patient Problems: Current Active Problems Problem Status Onset Ascites Acute Abdominal pain Acute Condition: STABLE
[2016-06-08] MEDS ORDERED: Iohexol 350 MG/100 ML VIAL ONE (21:54)
[2016-06-08] MEDS ORDERED: Iohexol 240 (50 ml) ONE (21:54)
[2016-06-08 22:26] LABS: ADD MANUAL DIFF? NO
[2016-06-08 22:29] LABS: BASO # 0.02 K/mm3 (0.0-2.0); BASO % 0.5 % (0.0-3.0); EOS % 0.5 % (1.5-5.0); GRAN # 3.14 (1.4-6.5); GRAN % 75.8 % (50.0-68.0); HEMATOCRIT 44.9 % (36.0-48.0); LYMPH # 0.7 (1.2-3.4); LYMPH % 16.9 % (22.0-35.0); MEAN CELL VOLUME 84.2 fL (80.0-105.0); MEAN CORPUSCULAR HEMOGLOBIN 26.5 pg (25.0-35.0); MEAN CORPUSCULAR HGB CONC 31.4 g/dl (31.0-37.0); MEAN PLATELET VOLUME 10.6 fl (7.0-11.0); MONO # 0.3 (0.1-0.6); MONO % 6.3 % (1.0-6.0); PLATELET COUNT 141 10^3/uL (120.0-450.0); RED CELL DISTRIBUTION WIDTH 17.4 % (11.5-14.5); WHITE BLOOD COUNT 4.1 10^3/ul (4.5-11.0)
[2016-06-08 22:42] LABS: ALB/GLOB RATIO 0.9 (1.1-1.8); ALKALINE PHOSPHATASE 128 U/L (38-133); ALT/SGPT 27 U/L (7-56); AMYLASE 46 U/L (35-125); AST/SGOT 29 U/L (15-39); BLOOD UREA NITROGEN 19 mg/dL (7-21); CALCIUM 8.6 mg/dL (8.4-10.5); CARBON DIOXIDE 30 mmol/L (21-33); CHLORIDE 100 mmol/L (98-107); GFR AFRICAN-AMERICAN > 60; GLUCOSE,RANDOM 145 mg/dL (70-110); LIPASE 19 U/L (23-300); POTASSIUM 4.6 mmol/L (3.6-5.0); SODIUM 137 mmol/L (132-148); TOTAL PROTEIN 7.6 g/dL (5.8-8.3)
--- NOTE | 2016-06-08 22:49 | ED PDOC ---
Physical Exam Vital Signs Reviewed: Yes Vital Signs Temp Pulse Resp BP Pulse Ox 06/09/16 02:00 83 24 123/85 97 06/09/16 00:00 95 H 24 130/81 98 06/08/16 22:59 93 H 24 128/90 95 06/08/16 21:59 87 23 121/88 99 06/08/16 21:09 97.5 F L 06/08/16 21:00 95 H 24 117/68 96 Temperature: Afebrile Blood Pressure: Normal Pulse: Regular Respiratory Rate: Normal Appearance: Positive for: Well-Appearing, Non-Toxic, Comfortable Pain Distress: None Mental Status: Positive for: Alert and Oriented X 3 Medical Decision Making ED Course and Treatment: 06/08/16 22:48 Case endorsed to me by Dr. Kyle, pending CT Abdomen and Pelvis, re- evaluation, and final disposition. Pt, whose past medical history includes multiple paracentesis, atrial fibrillation and hypertension, presented complaining of vague abdominal pain. 06/09/16 01:07 Reviewed radiology, CT Abdomen and Pelvis shows: Cardiomegaly and atherosclerotic disease; chronic emphysematous changes at the lung bases with increased airspace disease at the right base, atelectasis and/ or infiltrate; infrarenal abdominal aortic aneurysm without leak, unchanged; cirrhosis with large volume ascites; cholecystectomy with minimal pneumobilia, no ductal dilatation; a scattered diverticulosis without CT findings of diverticulitis Additional findings as described above. 06/09/16 01:[address] Valdez, who is aware and agrees with plan. Accepts pt in to his service. Pt will be admitted to [facility] for abdominal pain/ascites. Requests Dr. Bates and Dr. Quinteros on consult. 06/09/16 02:13 Reviewed EKG, 100% paced rhythm at 80 bpm. Inferior infarct. Anteroseptal infarct. - Lab Interpretations Lab Results: 06/08/16 22:17 06/08/16 22:17 Lab Results 06/08/16 22:22: Urine Color Yellow, Urine Appearance Sl cloudy, Urine pH 5.5, Ur Specific [place] >= 1.030, Urine Protein 30 H, Urine Glucose (UA) Negative, Urine Ketones Negative, Urine Blood Small H, Urine Nitrate Negative, Urine Bilirubin Small H, Urine Urobilinogen 0.2, Ur Leukocyte Esterase Moderate H, Urine RBC 0 - 2, Urine WBC 2 - 5, Ur Epithelial Cells 1 - 3, Amorphous Sediment Few, Urine Bacteria Few 06/08/16 22:17: Sodium 137, Potassium 4.6, Chloride 100, Carbon Dioxide 30, Anion Gap 12, BUN 19, Creatinine 0.7, Est GFR ( Amer) > 60, Est GFR (Non- Af Amer) > 60, Random Glucose 145 H, Calcium 8.6, Total Bilirubin 1.0, AST 29, ALT 27, Alkaline Phosphatase 128, NT-Pro-B Natriuret Pep 5630 H, Total Protein 7.6, Albumin 3.5, Globulin 4.1, Albumin/Globulin Ratio 0.9 L, Amylase 46, Lipase 19 L 06/08/16 22:17: PT 28.1 H, INR 2.60 H, APTT 40.2 H 06/08/16 22:17: WBC 4.1 L, RBC 5.33, Hgb 14.1, Hct 44.9, MCV 84.2, MCH 26.5, MCHC 31.4, RDW 17.4 H, Plt Count 141, MPV 10.6, Gran % 75.8 H, Lymph % (Auto) 16.9 L, [place] % (Auto) 6.3 H, Eos % (Auto) 0.5 L, Baso % (Auto) 0.5, Gran # 3.14 , Lymph # 0.7 L, [place] # 0.3, Eos # 0.0, Baso # 0.02 I have reviewed the lab results: Yes - RAD Interpretation Narrative RAD Interpretations (Text): CT Abdomen and Pelvis shows: Lower thorax: The heart is enlarged. The pacer leads there is no pericardial effusion. There is atelectasis and scarring at the lung bases, unchanged. There is increased airspace disease at the right base. ABDOMEN: Liver: Hepatic contours are nodular. There is reflux of intravenous contrast into inferior vena cava and hepatic veins. Gallbladder and bile ducts: Gallbladder is absent. There is air in the common bile duct. Common bile duct is normal in caliber. Pancreas: Pancreas is atrophic. Spleen: Spleen is unremarkable. Adrenals: Right adrenal is unremarkable. There is diffuse left adrenal thickening. Kidneys and ureters: unremarkable Stomach and bowel: Stomach is partially distended. Rotation is normal. There is no obstruction. Spleen is unremarkable.Appendix is not visualized.Colon is incompletely distended which limits evaluation. There is scattered diverticulosis Appendix: See stomach and bowel PELVIS: Bladder: Bladder is almost empty. Reproductive: Uterus and adnexal structures are unremarkable. ABDOMEN and PELVIS: Intraperitoneal space: There is a large amount of ascites in the abdomen and pelvis. There is no free air Bones/joints: There are postsurgical changes of median sternotomy. There are degenerative changes in the spine. There is disc space narrowing greatest at L34 and L4-5. There is L4-5 disc bulging. Soft tissues: There is body wall edema. There are postsurgical changes of hernia repair in the abdominal wall Vasculature: Aorta is ectatic. There is an infrarenal abdominal aortic aneurysm 3.5 cm in maximal dimension. There is mural thrombus in the aneurysm. There is no leak. Lymph nodes: unremarkable IMPRESSION: Cardiomegaly and atherosclerotic disease; chronic emphysematous changes at the lung bases with increased airspace disease at the right base, atelectasis and/ or infiltrate; infrarenal abdominal aortic aneurysm without leak, unchanged; cirrhosis with large volume ascites; cholecystectomy with minimal pneumobilia, no ductal dilatation; a scattered diverticulosis without CT findings of diverticulitis Additional findings as described above. Radiology Orders: 06/08/16 21:00 ABD PELVIS PO & IV CONTRAST [CT] Stat Nurse Sitter: Radiologist - EKG Interpretation Interpreted by ED Physician: Yes Type: 12 lead EKG - Medication Orders Current Medication Orders: Discontinued Medications Iohexol (Omnipaque 350 100 Ml) Confirm Administered Dose 350 mg .ROUTE .STK-MED ONE Stop: 06/08/16 21:55 Iohexol (Omnipaque 240 (50 Ml)) Confirm Administered Dose 50 ml .ROUTE .STK-MED ONE Stop: 06/08/16 21:55 Disposition/Present on Arrival - Present on Arrival Any Indicators Present on Arrival: No History of DVT/PE: No History of Uncontrolled Diabetes: No Urinary Catheter: No History of Decub. Ulcer: No History Surgical Site Infection Following: None - Disposition Have Diagnosis and Disposition been Completed?: Yes Diagnosis: Abdominal pain, Ascites Disposition: HOSPITALIZED Disposition Time: :22 Patient Problems: Current Active Problems Problem Status Onset Abdominal pain Acute Ascites Acute Condition: STABLE
[2016-06-08 22:53] LABS: INR 2.6 (0.93-1.08); PARTIAL THROMBOPLASTIN TIME 40.2 Seconds (23.7-30.8)
[2016-06-08 23:06] LABS: PH,URINE 5.5 (4.7-8.0); URINE BILIRUBIN SMALL (NEGATIVE); URINE BLOOD SMALL (NEGATIVE); URINE GLUCOSE (UA) NEGATIVE (NEGATIVE); URINE KETONE NEGATIVE (NEGATIVE); URINE LEUKOCYTE ESTERASE MODERATE Leu/uL (NEGATIVE); URINE PROTEIN 30 mg/dL (<30 mg/dL); URINE UROBILINOGEN 0.2 E.U./dL (<1 E.U./dL)
[2016-06-08 23:12] LABS: URINE APPEARANCE SL CLOUDY (CLEAR); URINE COLOR YELLOW (YELLOW)
[2016-06-08 23:35] LABS: URINE RBC 0 - 2 /hpf (0-2)
[2016-06-08 23:36] LABS: URINE AMORPHOUS SEDIMENT FEW; URINE BACTERIA FEW (NEG)
--- NOTE | 2016-06-09 00:59 | CT ---
EXAM: CT Abdomen and Pelvis With Intravenous Contrast CLINICAL HISTORY: 71 years old, female; Pain; Abdominal pain; Generalized; Prior surgery; Surgery date: 6+ months; Additional info: Diffuse abdominal pain h/o ascites TECHNIQUE: Axial computed tomography images of the abdomen and pelvis with intravenous contrast. This CT exam was performed using one or more of the following dose reduction techniques: automated exposure control, adjustment of the mA and/or kV according to patient size, and/or use of iterative reconstruction technique. Coronal and sagittal reformatted images were created and reviewed. CONTRAST: 96 mL of OMNI 350 administered intravenously. EXAM DATE/TIME: 06/08/2016 9:00 PM COMPARISON: CT - ABD PELVIS IV CONTRAST ONLY 05/13/2016 1:12:35 PM FINDINGS: Lower thorax: The heart is enlarged. The pacer leads there is no pericardial effusion. There is atelectasis and scarring at the lung bases, unchanged. There is increased airspace disease at the right base. ABDOMEN: Liver: Hepatic contours are nodular. There is reflux of intravenous contrast into inferior vena cava and hepatic veins. Gallbladder and bile ducts: Gallbladder is absent. There is air in the common bile duct. Common bile duct is normal in caliber. Pancreas: Pancreas is atrophic. Spleen: Spleen is unremarkable. Adrenals: Right adrenal is unremarkable. There is diffuse left adrenal thickening. Kidneys and ureters: unremarkable Stomach and bowel: Stomach is partially distended. Rotation is normal. There is no obstruction. Spleen is unremarkable.Appendix is not visualized.Colon is incompletely distended which limits evaluation. There is scattered diverticulosis Appendix: See stomach and bowel PELVIS: Bladder: Bladder is almost empty. Reproductive: Uterus and adnexal structures are unremarkable. ABDOMEN and PELVIS: Intraperitoneal space: There is a large amount of ascites in the abdomen and pelvis. There is no free air Bones/joints: There are postsurgical changes of median sternotomy. There are degenerative changes in the spine. There is disc space narrowing greatest at L34 and L4-5. There is L4-5 disc bulging. Soft tissues: There is body wall edema. There are postsurgical changes of hernia repair in the abdominal wall Vasculature: Aorta is ectatic. There is an infrarenal abdominal aortic aneurysm 3.5 cm in maximal dimension. There is mural thrombus in the aneurysm. There is no leak. Lymph nodes: unremarkable IMPRESSION: Cardiomegaly and atherosclerotic disease; chronic emphysematous changes at the lung bases with increased airspace disease at the right base, atelectasis and/or infiltrate; infrarenal abdominal aortic aneurysm without leak, unchanged; cirrhosis with large volume ascites; cholecystectomy with minimal pneumobilia, no ductal dilatation; a scattered diverticulosis without CT findings of diverticulitis Additional findings as described above.
[2016-06-09] MEDS ORDERED: Pneumococcal 23-Valent Vaccine IM ONE (05:04)
--- NOTE | 2016-06-09 08:32 | RAD ---
HISTORY: Abdominal pain COMPARISON: 05/13/2016 FINDINGS: LUNGS: There is subsegmental atelectasis in the right lower lobe. The left lung is clear. PLEURA: No significant pleural effusion identified, no pneumothorax apparent. CARDIOVASCULAR: There is persistent severe cardiomegaly. Status post CABG. There is stable position of a left-sided dual lead transvenous permanent pacing device. OSSEOUS STRUCTURES: No significant abnormalities. VISUALIZED UPPER ABDOMEN: Normal. OTHER FINDINGS: None. IMPRESSION: No acute findings.
--- NOTE | 2016-06-09 12:16 | CARD ---
APPROVED REPORT EKG Measurement Heart [id number] <Conclusion> Demand Biventricular pacemaker, intrinsic rhythm is A Fib Inferior infarct, age undetermined Abnormal ECG
--- NOTE | 2016-06-09 13:33 | CON ---
DATE: 06/09/2016 The patient is in room 565, bed 2. REASON FOR CONSULTATION: Cardiomyopathy, history of coronary artery disease, ascites. HISTORY OF PRESENT ILLNESS: A 71-year-old female, known case of cardiomyopathy and coronary artery d alecia, admitted with abdominal pain, increasing girth of abdomen. The patient denies any chest pain , shortness of breath, or palpitation. The patient's CAT scan of the abdomen and pelvis shows large amount of ascites and cirrhosis of liver. PAST MEDICAL HISTORY: Significant for longstanding coronary artery disease started in 1989 with infe rior wall [place], status post TPA at that time, then patient had multiple PTCAs, and after PCTAs the la nena ent ended up having coronary artery bypass surgery at [facility]. Later on, patie nt had mitral valve repair and at the same time with CABG. Post CABG, also patient had PTCAs and lat er on developed a cardiomyopathy and had AICD insertion again at [facility]. Sinc e then multiple admissions for CHF, and also patient was admitted in the past for ascites and paracen tesis. PAST SURGICAL HISTORY: Significant for incarcerated hernia, status post surgical repair; hypertensio n, history of AICD insertion, history of open heart surgery with mitral valve repair and coronary art ang bypass surgery, multiple abdominal paracenteses. PERSONAL HISTORY: Denies smoking, denies alcohol abuse. ALLERGIES: No known allergies. MEDICATIONS: The patient's medication at home included warfarin 3 mg daily, simvastatin 20 mg daily, digoxin 0.25 p.o. daily, Lasix 80 mg p.o. daily. REVIEW OF SYSTEMS: All the systems were reviewed. Positive mentioned in the history, others were ne gative. PHYSICAL EXAMINATION: VITAL SIGNS: Blood pressure 135/85, respirations 20, pulse 74, temperature 97.8. HEENT: Head is normocephalic. Eyes: Pupils normal. Conjunctivae normal. Nose and throat normal. NECK: JVP low. Carotid equal. THORAX: AP diameter normal. LUNGS: Clear. CARDIOVASCULAR: S1, S2. Pansystolic murmur, grade III/. No rub. ABDOMEN: Protuberant. Ascites present. No organomegaly. EXTREMITIES: No clubbing, no cyanosis. LABORATORY DATA: WBC 4.1, hemoglobin 14.1, hematocrit 44.9, platelet 141. Sodium 137, potassium 4.6 , BUN 19, creatinine 0.7, random glucose 145. AST, ALT normal. Anti-proB natriuretic pep 5630. Tot al protein 7.6, albumin 3.5. Prothrombin time 28.1, INR 2.60, PTT 40.2. Chest x-ray: Cardiomegaly. Otherwise, lungs are clear. EKG showed pacemaker rhythm. DIAGNOSES: Abdominal pain with abdominal girth and increased large ascites; decompensated congestive heart failure, acute on chronic; left ventricular systolic dysfunction, diabetes, hypertension, hype rlipidemia; coronary artery disease, status post multiple stents, status post bypass surgery, status post mitral valve repair, status post automatic implantable cardioverter-defibrillator insertion. Th e patient's ejection fraction 20-25%, status post mitral valve repair, severe tricuspid regurgitation , right ventricle systolic pressure of 51 mmHg which is moderate pulmonary hypertension; cirrhosis of liver, atrial fibrillation. PLAN: The patient is on warfarin 3 mg p.o. daily, digoxin 0.25 p.o. daily, Lasix 80 mg daily. Consu lt with Dr. Yaw Leonard has been already requested for paracentesis of the ascites. Will continue pr esent therapy. Will follow with you. Tonia Roy MD cc: [id number] TT: 06/09/2016 13:32:39 Confirmation # [id number] Dictation # [id number]
[2016-06-09] MEDS: Digoxin 250 mcg (0.25 mg) Tab PO SCH (13:53)
--- NOTE | 2016-06-09 18:38 | HP ---
HISTORY OF PRESENT ILLNESS: The patient is a 71-year-old female with recurrent admissions for CHF, w ho presents to the Emergency Room with increasing abdominal pain. The patient denies any chest pain. She complains of shortness of breath and dyspnea on mild exertion. There is no nausea, no vomiting , no diarrhea. There is no melena or bright red blood per rectum. She has had recurrent abdominal p aracenteses by Yaw Leonard in the past for large volume ascites. PAST MEDICAL HISTORY: Includes ischemic cardiomyopathy with recurrent congestive heart failure, stat us post CABG/AICD, atrial fibrillation on Coumadin, type 2 diabetes mellitus which is diet controlled and COPD. PAST SURGICAL HISTORY: Includes status post CABG/AICD. CURRENT MEDICATIONS: Include Benadryl 25 mg at bedtime, Coumadin 3 mg daily, digoxin 0.25 mg daily, Lasix 80 mg daily, Lipitor 10 mg daily and Pepcid 20 mg daily. ALLERGIES: INCLUDE NAPROSYN, CIPROFLOXACIN, AND ADHESIVE TAPE. SOCIAL HISTORY: The patient has no history of tobacco or alcohol use. She is independent with ADLs and lives with her grandson. She requires some assistance with IADLs. REVIEW OF SYSTEMS: Essentially as above. There is no fever, no chills, no cough or hemoptysis. No dysuria, no hematuria, no vaginal bleeding or discharge. PHYSICAL EXAMINATION: GENERAL: The patient is a well-developed, somewhat cachectic female, in no acute distress. VITAL SIGNS: Blood pressure 134/84, temperature 97.8, pulse 74, respiratory rate 20. HEENT: Head is normocephalic, atraumatic. Pupils equal, round, reactive to light. Extraocular move ments intact. NECK: Supple, with no thyromegaly, no carotid bruit. LUNGS: Show a few bibasilar crackles. HEART: Regular rate and rhythm with a grade II-III/ systolic murmur. There is an implanted defibr illator device in the left chest wall, which is intact. ABDOMEN: Soft, slightly distended with mild diffuse tenderness. No guarding, no rebound. Bowel adriano nds are normoactive. Fluid wave is present. EXTREMITIES: Without cyanosis, clubbing or edema. Dorsalis pedis and posterior tibial pulses are di minished. NEUROLOGIC: The patient is awake and responsive without focal, sensory or motor deficits. SKIN: Warm and dry. LABORATORY DATA: WBCs 4.1, hemoglobin 14.1, hematocrit 44.9. Sodium 137, potassium 4.6, chloride 10 0, CO2 30, BUN 19, creatinine 0.7, glucose 145. BNP is 5630. INR is 2.6. CT scan of the abdomen and pelvis shows large volume ascites and cirrhosis of the liver. Chest x-ray shows severe cardiomegaly with no active disease. IMPRESSION: 1. Abdominal pain, rule out mesenteric ischemia due to low cardiac output versus secondary to ascite s and liver congestion. 2. Ischemic cardiomyopathy with recurrent congestive heart failure and ascites. 3. Coronary artery disease, status post coronary artery bypass graft/automatic implantable cardiover ter-defibrillator. 4. Paroxysmal atrial fibrillation, on Coumadin. 5. Type 2 decent mellitus/diet controlled. 6. Chronic obstructive pulmonary disease. PLAN: The patient is admitted to the medical surgical floor. We will obtain a cardiology consult fr om Dr. Roy/Dr. Quinteros. Continue present medications. We will obtain consultation from Dr. Yaw marvin for possible abdominal paracentesis. Social work for discharge planning. Garcia Valdez JD, MD cc: [id number] TT: 06/09/2016 18:37:33 en
--- NOTE | 2016-06-09 19:28 | US ---
PROCEDURE: Ultrasound guided paracentesis. HISTORY: Cirrhosis. Recurrent ascites with abdominal pain and distension. Needs paracentesis. PHYSICIAN(S): Yaw Leonard MD. TECHNIQUE: The relative risks and indications for the procedure were explained to the patient and informed written consent obtained. Sonography of the abdomen was performed in a supine position. This revealed a moderate amount of non-loculated ascites, greatest in the right lower quadrant. A puncture site was selected and the area was prepped and draped in the usual sterile fashion. 1% Xylocaine was used to anesthetize the skin and soft tissues. A 7 Albanian paracentesis catheter was trocared into the right lower quadrantand 4300 cc of araya fluid aspirated. No labs were sent. IMPRESSION: Ultrasound-guided paracentesis in the right mid abdomen. 4300 cc of fluid were aspirated.
--- NOTE | 2016-06-10 03:29 | CP.PCM.PN ---
Subjective - Date & Time of Evaluation Date of Evaluation: 06/10/16 Time of Evaluation: 03:28 - Subjective Subjective: # 22 angiocath was inserted in right forearm Dx:Poor venous access. Objective - Vital Signs/Intake and Output Vital Signs (last 24 hours): Temp Pulse Resp BP Pulse Ox 97.2 F L 80 20 105/67 67 L 06/09/16 16:00 06/09/16 16:00 06/09/16 16:00 06/09/16 16:00 06/09/16 16:00 Intake and Output: 06/09/16 06/10/16 18:59 06:59 Intake Total 480 600 Balance 480 600 - Medications Medications: Current Medications Digoxin (Lanoxin) 0.25 mg PO 1400 [facility] Last Admin: 06/09/16 13:53 Dose: 0.25 mg Diphenhydramine HCl (Benadryl) 50 mg PO HS [facility] Last Admin: 06/09/16 22:01 Dose: 50 mg Furosemide (Lasix) 80 mg PO DAILY [facility] Last Admin: 06/09/16 12:14 Dose: 80 mg Warfarin Sodium (Coumadin) 3 mg PO 1800 [facility] PRN Reason: Protocol Last Admin: 06/09/16 18:02 Dose: 3 mg - Labs Labs: PT 28.1 Seconds (9.9-11.8) H 06/08/16 22:17 INR 2.60 (0.93-1.08) H 06/08/16 22:17 APTT 40.2 Seconds (23.7-30.8) H 06/08/16 22:17
--- NOTE | 2016-06-10 12:41 | PN ---
DATE: 06/10/2016 LOCATION: The patient is in room 565, bed #2. REASON FOR CONSULTATION AND FOLLOWUP: Cardiomyopathy, history of coronary artery disease, ascites. HISTORY OF PRESENT ILLNESS: A 71-year-old female, known case of cardiomyopathy and coronary artery d isperez, admitted with abdominal pain and increasing girth of abdomen. The patient denies any chest p ain, shortness of breath, or palpitation. The patient's CT scan of the abdomen showed large amount o f ascites and cirrhosis of liver. The patient had a paracentesis today large amount of fluid was rem shelli from ascites. The patient has a long cardiac history which the details have been mentioned in o ur consult dated 06/09/2016. The patient is lying comfortably in bed without chest pain, shortness o f breath, palpitation. PHYSICAL EXAMINATION: VITAL SIGNS: Blood pressure 101/54, respirations 18, pulse 85, temperature 98.1. HEAD: Normocephalic. EYES: Pupils normal. Conjunctivae normal. NOSE AND THROAT: Normal. NECK: JVP low. Carotid equal. THORAX: AP diameter normal. LUNGS: Clear. CARDIOVASCULAR: S1, S2, pansystolic murmur grade III/. No rub. ABDOMEN: Much softer and is less distended, as compared to admission because of post-paracentesis, 4 300 mL of ascites fluid was removed yesterday. DIAGNOSES: Large ascites status post 4300 ascitic fluid removal yesterday, coronary artery disease, history of coronary artery bypass surgery, history of multiple stents, history of decompensated fortunato estive heart failure, left ventricular systolic chronic failure, diabetes, hypertension, hyperlipidem ia, status post coronary artery bypass grafting, status post mitral valve repair, status post automat ic implantable cardioverter-defibrillator insertion. The patient's ejection fraction 20-25%, severe tricuspid regurgitation, right ventricle systolic pressure of 51 mmHg which is moderate pulmonary hyp ertension, cirrhosis of liver, atrial fibrillation. PLAN: Continue warfarin 3 mg p.o. daily, digoxin 0.25 daily, furosemide 80 mg p.o. daily. We will f ollow with you. Tonia Roy MD cc: [id number] TT: 06/10/2016 12:40:32 Confirmation # [id number] Dictation # [id number] jn
[2016-06-10] MEDS: Digoxin 250 mcg (0.25 mg) Tab PO SCH (13:20)
--- NOTE | 2016-06-10 14:42 | PN ---
DATE: 06/10/2016 SUBJECTIVE: The patient is lying in bed in no acute distress. She is 1 day status post abdominal pa racentesis with aspiration of approximately 4300 mL of ascitic fluid. There is no shortness of breat h or chest pain. There is diminished abdominal discomfort. OBJECTIVE: VITAL SIGNS: Blood pressure 101/54, pulse 85, temperature 98.1, respiratory rate 18. LUNGS: Clear. HEART: Regular rate and rhythm. ABDOMEN: Soft, nontender, bowel sounds are normoactive. EXTREMITIES: Without cyanosis, clubbing, or edema. NEUROLOGIC: The patient is awake and oriented x 3 without focal sensory or motor deficits. SKIN: Warm and dry. IMPRESSION: 1. Abdominal pain secondary to ascites/liver cirrhosis, status post abdominal paracentesis. 2. Ischemic cardiomyopathy with recurrent congestive heart failure and ascites. 3. Coronary artery disease, status post coronary artery bypass graft/automatic implantable cardiover ter-defibrillator. 4. Paroxysmal atrial fibrillation on Coumadin. 5. Type 2 diabetes mellitus/diet controlled. 6. Chronic obstructive pulmonary disease. PLAN: Monitor status post paracentesis. Cardiology followup with Dr. Roy. Social work for disch arge planning. Garcia Valdez JD, MD cc: [id number] TT: 06/10/2016 14:41:32 Confirmation # [id number] Dictation # [id number] mayela
--- NOTE | 2016-06-11 12:28 | PN ---
DATE: 06/11/2016 The patient is in room 565, bed 2. REASON FOR CONSULTATION AND FOLLOWUP: Cardiomyopathy, history of coronary artery disease, ascites. HISTORY OF PRESENT ILLNESS: A 71-year-old female, known case of cardiomyopathy and coronary artery d alecia, admitted with abdominal pain and increased girth of abdomen: The patient denies any chest pa in. No shortness of breath or palpitation. CT scan showed large amount of ascites, so patient had a paracentesis done with 4300 mL of ascitic fluid removed and the patient's abdomen feels much better. The patient is sitting comfortably in bed at present without any cardiac symptoms. PHYSICAL EXAMINATION: VITAL SIGNS: Blood pressure 111/80, respirations 20, pulse 79, temperature 98.4. HEAD: Normocephalic. EYES: Pupils normal. Conjunctivae normal. NOSE AND THROAT: Normal. NECK: JVP low. Carotid equal. THORAX: AP diameter is normal. LUNGS: Clear. CARDIOVASCULAR: S1, S2, pansystolic murmur, grade III/. No rub. ABDOMEN: Much less in diameter now and is soft. Bowel sounds normal. EXTREMITIES: No clubbing, no cyanosis. LABORATORY DATA: WBC 4.1, hemoglobin 14.1, hematocrit 44.9, platelet 141. Sodium 137, potassium 4.6 , BUN ____, creatinine 0.7, random glucose 145. AST, ALT normal. NT Pro natriuretic pep of 5620. To trip protein 7.6, albumin 3.5. DIAGNOSES: Large ascites, status post removal of 4300 mL of ascitic fluid, coronary artery disease, history of coronary bypass surgery, history of multiple stents, history of decompensated congestive h eart failure, left ventricular systolic failure, chronic; diabetes, hypertension, hyperlipidemia, sta tus post coronary bypass graft, status post multiple stents, status post mitral valve repair, status post automatic implantable cardioverter-defibrillator insertion, left ventricular ejection fraction 2 0-25%, severe tricuspid regurgitation, right ventricle systolic pressure of 51 mmHg which is moderate pulmonary hypertension, cirrhosis of liver, atrial fibrillation. PLAN: The patient on warfarin 3 mg daily, digoxin 0.25 daily, Lasix 80 mg p.o. daily. We will check PT/INR in the morning and we will continue present therapy. We will follow with you. Tonia Roy MD cc: [id number] TT: 06/11/2016 12:28:04 Confirmation # [id number] Dictation # [id number]
--- NOTE | 2016-06-11 12:48 | PN ---
DATE: 06/11/2016 SUBJECTIVE: The patient is lying in bed in no acute distress. There is no chest pain or shortness o f breath. OBJECTIVE: VITAL SIGNS: Blood pressure 111/80, pulse 79, temperature 98.4, respiratory rate 20. LUNGS: Clear. HEART: Regular rate and rhythm. ABDOMEN: Soft, nontender, bowel sounds are normoactive. EXTREMITIES: Without cyanosis, clubbing, or edema. NEUROLOGIC: The patient is awake and oriented x 3 without focal sensory or motor deficits. SKIN: Warm and dry. IMPRESSION: 1. Abdominal pain secondary to ascites/liver cirrhosis, status post abdominal paracentesis. 2. Ischemic cardiomyopathy with recurrent congestive heart failure and ascites. 3. Coronary artery disease status post coronary artery bypass graft/automatic implantable cardiovert er-defibrillator. 4. Paroxysmal atrial fibrillation on Coumadin. 5. Type 2 diabetes mellitus/diet controlled. 6. Chronic obstructive pulmonary disease. PLAN: Continue to monitor the patient status post paracentesis. Cardiology followup with Dr. Roy /Dr. Quinteros. Social work for discharge planning. Garcia Valdez JD, MD cc: 353 TT: 06/11/2016 12:48:02 Confirmation # [id number] Dictation # [id number] mayela
[2016-06-11] MEDS: Digoxin 250 mcg (0.25 mg) Tab PO SCH (14:00)
[2016-06-12 08:54] LABS: BLOOD UREA NITROGEN 21 mg/dL (7-21); CALCIUM 8.1 mg/dL (8.4-10.5); CARBON DIOXIDE 29 mmol/L (21-33); CHLORIDE 99 mmol/L (95-110); GFR AFRICAN-AMERICAN > 60; GLUCOSE,RANDOM 81 mg/dL (70-110); MAGNESIUM 1.9 mg/dL (1.7-2.2); PHOSPHOROUS 3.3 mg/dL (2.5-4.5); POTASSIUM 4.5 mmol/L (3.6-5.0); SODIUM 134 mmol/L (132-148)
--- NOTE | 2016-06-12 13:39 | PN ---
DATE: 06/12/2016 SUBJECTIVE: The patient is lying in bed in no acute distress. She denies chest pain or shortness of breath. There is no abdominal pain, no dysuria, no hematuria, no nausea, no vomiting. OBJECTIVE: VITAL SIGNS: Blood pressure 96/66, temperature 97.6, pulse 85, respiratory rate 16. LUNGS: Clear. HEART: Regular rate and rhythm. ABDOMEN: Soft, nontender. Bowel sounds are normoactive. EXTREMITIES: Without cyanosis, clubbing, or edema. NEUROLOGIC: The patient is awake and oriented x 3 without focal sensory or motor deficits. SKIN: Warm and dry. LABORATORY DATA: Urine C and S is positive for greater than 10 to the 5th Enterococcus. IMPRESSION: 1. Abdominal pain secondary to ascites/liver cirrhosis status post abdominal paracentesis. 2. Ischemic cardiomyopathy with recurrent congestive heart failure, and ascites. 3. Coronary artery disease, status post coronary artery bypass graft/automatic implantable cardiovert er-defibrillator. 4. Paroxysmal atrial fibrillation on Coumadin. 5. Type 2 diabetes mellitus/diet control. 6. Chronic obstructive pulmonary disease. 7. Asymptomatic bacteriuria with enterococcus/no indication for IV or p.o. antibiotics. PLAN: Continue to monitor the patient status post paracentesis. Cardiology followup with Dr. Roy /Dr. Quinteros. Social work for discharge planning. Garcia Valdez JD, MD cc: 353 TT: 06/12/2016 13:38:14 Confirmation # [id number] Dictation # [id number] bang
--- NOTE | 2016-06-12 14:47 | PN ---
DATE: 06/12/2016 The patient in room 565, bed 2. REASON FOR CONSULTATION AND FOLLOWUP: Cardiomyopathy, history of coronary artery disease, ascites, s tatus post paracentesis. HISTORY OF PRESENT ILLNESS: A 71-year-old female, known case of cardiomyopathy, coronary artery dise ase. Admitted with abdominal pain and increased girth of the abdomen, found to have large ascites, 4 300 mL of ascitic fluid. Paracentesis was done and patient's pain got better. The patient lying fla t in bed without any cardiac symptoms at present and abdominal pain has improved and also girth of th e abdomen has reduced since paracentesis. PHYSICAL EXAMINATION: VITAL SIGNS: Blood pressure 96/66, respirations 16, pulse 85, temperature 97.6. HEAD: Normocephalic. EYES: Pupils normal. Conjunctivae normal. NOSE AND THROAT: Normal. NECK: JVP low. Carotid equal. THORAX: AP diameter normal. LUNGS: Clear. CARDIOVASCULAR: S1, S2, pansystolic murmur grade III/. No rub. ABDOMEN: Soft and bowel sounds normal. EXTREMITIES: No clubbing, no cyanosis. LABORATORIES: WBC 4.1, hemoglobin 14.1, hematocrit 44.9, platelets 141. Sodium 134, potassium 4.5, BUN 21, creatinine 0.7, random glucose 81, calcium is 8.1, phosphorus 3.3, magnesium 1.9. DIAGNOSES: Large ascites, status post paracentesis, 4300 mL of fluid removed, coronary artery diseas e, coronary artery bypass surgery, multiple stents, ischemic cardiomyopathy, automatic implantable ca rdioverter-defibrillator, atrial fibrillation, diabetes, hypertension, hyperlipidemia, chronic obstru ctive pulmonary disease, chronic left ventricular systolic dysfunction, status post automatic implant able cardioverter-defibrillator insertion, left ventricular ejection fraction 20%-25%, severe tricusp id regurgitation, right ventricular systolic pressure 51 mmHg suggestive of moderate pulmonary hypert ension, cirrhosis of liver. PLAN: We will continue present therapy with warfarin 3 mg p.o. daily, digoxin 0.25 daily, Lasix 80 m g daily. Today's prothrombin time 21.6, INR 2.0. Tonia Roy MD cc: 306 TT: 06/12/2016 14:46:15 Confirmation # [id number] Dictation # [id number] en
[2016-06-12] MEDS: Digoxin 250 mcg (0.25 mg) Tab PO SCH (15:15)
[2016-06-12 15:18] VITALS: PULSE 87
[2016-06-13 07:54] VITALS: BP 110/72; PULSE 81; RESP 20; TEMP 97.2; O2SAT 97
--- NOTE | 2016-06-13 12:51 | PN ---
DATE: 06/13/2016 The patient is in room 567, bed 2. REASON FOR CONSULTATION AND FOLLOWUP: Cardiomyopathy, coronary artery disease, ascites, status post paracentesis. HISTORY OF PRESENT ILLNESS: A 71-year-old female, known case of cardiomyopathy, coronary artery dise ase, status post CABG, multiple stents, mitral valve repair, AICD insertion, chronic AFib. Admitted with abdominal discomfort and enlargement of the abdomen and found to have large ascites and 4300 mL of ascitic fluid was drained and patient feels better. Her abdominal girth has also decreased. The patient denies chest pain, shortness of breath, or palpitation at present. PHYSICAL EXAMINATION: VITAL SIGNS: Blood pressure is 110/72, respirations 20, pulse 81, temperature 97.2. HEAD: Normocephalic. EYES: Pupils normal. Conjunctivae normal. NOSE AND THROAT: Normal. NECK: JVP low. Carotid equal. THORAX: AP diameter normal. LUNGS: Clear. CARDIOVASCULAR: S1, S2, pansystolic murmur grade III/. No rub. ABDOMEN: Abdominal girth has decreased and no tenderness. Bowel sounds normal. EXTREMITIES: No clubbing, no cyanosis. LABORATORIES: Sodium 134, potassium 4.5, BUN 21, creatinine 0.7, calcium 8.1, phosphorus 3.3, magnes ium 1.9, total protein 7.6, albumin 3.5. Prothrombin time was done yesterday 21.6, INR 2.00. DIAGNOSES: Large ascites, status post paracentesis of 4300 mL of fluid, coronary artery disease, sta tus post coronary artery bypass graft, multiple stents, ischemic cardiomyopathy, automatic implantabl e cardioverter-defibrillator insertion, chronic atrial fibrillation, diabetes, hypertension, hyperlip idemia, chronic obstructive pulmonary disease, status post automatic implantable cardioverter-defibri llator insertion, left ventricular ejection fraction 20%-25%, severe tricuspid regurgitation, right v entricular systolic pressure 51 mmHg suggestive of moderate pulmonary hypertension, cirrhosis of live r. PLAN: The patient is on warfarin 3 mg p.o. daily, digoxin 0.25 daily, furosemide 80 daily. We will continue these medications. We will follow. Tonia Roy MD cc: 306 TT: 06/13/2016 12:50:47 Confirmation # [id number] Dictation # [id number] en
--- NOTE | 2016-06-13 20:09 | DS ---
HOSPITAL COURSE: The patient is a 71-year-old female with a history of recurrent CHF due to ischemic cardiomyopathy, who was admitted through the Emergency Department on 06/09/2016 with abdominal pain. The patient underwent an abdominal paracentesis by Dr. Yaw Leonard with aspiration of approximately 4300 mL of ascitic fluid with improvement of her symptoms. She was seen in consultation by cardiolo ember, Dr. Roy/Dr. Quinteros. She received IV Lasix. At the present time, she denies any chest pain, stevenson rtness of breath and is medically stable for discharge. PHYSICAL EXAMINATION: VITAL SIGNS: Blood pressure 110/72, temperature 97.2, pulse 81, respiratory rate 20. LUNGS: Clear. HEART: Regular rate and rhythm. ABDOMEN: Soft, nontender, bowel sounds are normoactive. EXTREMITIES: Without cyanosis, clubbing, or edema. NEUROLOGIC: The patient is awake and oriented x 3 without focal sensory or motor deficits. SKIN: Warm and dry. IMPRESSION: 1. Abdominal pain secondary to ascites/liver cirrhosis status post abdominal paracentesis. 2. Ischemic cardiomyopathy with recurrent congestive heart failure, and ascites. 3. Coronary artery disease status post coronary artery bypass grafting/automatic implantable cardiov erter-defibrillator. 4. Paroxysmal atrial fibrillation on Coumadin. 5. Type 2 diabetes mellitus/diet controlled. 6. Chronic obstructive pulmonary disease. PLAN: The patient will be discharged to home today in stable condition on the following medications: Warfarin 3 mg daily, digoxin 0.25 mg daily, Lasix 80 mg daily, Pepcid 20 mg twice daily and Benadry l 25 mg at bedtime. She will be maintained on a heart-healthy diet, activities are ad libitum. She will be followed in my office in the next 1-2 weeks. Garcia Valdez JD, MD cc: 353 TT: 06/13/2016 20:08:59 bang
== END 2016-06-13 12:58 | disposition home or self-care (01) | DRG 432 ==
LOC: ED 20:26 → ERH 06-09 01:23 → 5RNO 06-09 03:06
PROVIDERS: ADMIT Internal Medicine; ATTEND Internal Medicine
PROC: 0W9G3ZZ Drainage of Peritoneal Cavity, Percutaneous Approach (ICD-10-PCS; principal; 2016-06-09)
PROC: BW40ZZZ Ultrasonography of Abdomen (ICD-10-PCS; 2016-06-09)
DX: K74.60 Unspecified cirrhosis of liver (principal); I50.23 Acute on chronic systolic (congestive) heart failure; R18.8 Other ascites; I27.2 Other secondary pulmonary hypertension; I48.0 Paroxysmal atrial fibrillation; I07.1 Rheumatic tricuspid insufficiency; J98.11 Atelectasis; I48.2 Chronic atrial fibrillation; J44.9 Chronic obstructive pulmonary disease, unspecified; I25.5 Ischemic cardiomyopathy; I25.10 Atherosclerotic heart disease of native coronary artery without angina pectoris; E11.9 Type 2 diabetes mellitus without complications; E78.5 Hyperlipidemia, unspecified; H91.90 Unspecified hearing loss, unspecified ear; I11.0 Hypertensive heart disease with heart failure; I25.2 Old myocardial infarction; Z79.01 Long term (current) use of anticoagulants; I71.4 Abdominal aortic aneurysm, without rupture; Z86.73 Personal history of transient ischemic attack (TIA), and cerebral infarction without residual deficits; Z90.49 Acquired absence of other specified parts of digestive tract; Z79.899 Other long term (current) drug therapy; Z95.1 Presence of aortocoronary bypass graft; Z95.5 Presence of coronary angioplasty implant and graft; Z95.810 Presence of automatic (implantable) cardiac defibrillator; M19.90 Unspecified osteoarthritis, unspecified site; R32 Unspecified urinary incontinence; F41.9 Anxiety disorder, unspecified; F32.89 Other specified depressive episodes; F17.200 Nicotine dependence, unspecified, uncomplicated; Z88.6 Allergy status to analgesic agent; Z88.1 Allergy status to other antibiotic agents; Z87.892 Personal history of anaphylaxis; Z91.048 Other nonmedicinal substance allergy status; R10.9 Unspecified abdominal pain; K57.90 Diverticulosis of intestine, part unspecified, without perforation or abscess without bleeding; I77.819 Aortic ectasia, unspecified site; R82.71 Bacteriuria; B95.2 Enterococcus as the cause of diseases classified elsewhere; R01.1 Cardiac murmur, unspecified

== ENCOUNTER 2016-06-23 14:34 | Emergency (ER) | payer MEDICARE, OTHER ==
[2016-06-24 00:37] LABS: ADD MANUAL DIFF? NO
[2016-06-24 09:41] LABS: INR 2.12 (0.93-1.08); PARTIAL THROMBOPLASTIN TIME 39.7 Seconds (23.7-30.8)
[2016-06-24 13:54] LABS: BASO # 0.02 K/mm3 (0.0-2.0); BASO % 0.4 % (0.0-3.0); EOS # 0.1 (0.0-0.7); EOS % 1.1 % (1.5-5.0); GRAN # 3.69 (1.4-6.5); GRAN % 78.7 % (50.0-68.0); HEMATOCRIT 43.7 % (36.0-48.0); LYMPH # 0.7 (1.2-3.4); LYMPH % 14.7 % (22.0-35.0); MEAN CELL VOLUME 83.1 fL (80.0-105.0); MEAN CORPUSCULAR HEMOGLOBIN 26.8 pg (25.0-35.0); MEAN CORPUSCULAR HGB CONC 32.3 g/dl (31.0-37.0); MEAN PLATELET VOLUME 10.9 fl (7.0-11.0); MONO # 0.2 (0.1-0.6); MONO % 5.1 % (1.0-6.0); PLATELET COUNT 129 10^3/uL (120.0-450.0); RED CELL DISTRIBUTION WIDTH 17.5 % (11.5-14.5); WHITE BLOOD COUNT 4.7 10^3/ul (4.5-11.0)
--- NOTE | 2016-06-24 14:06 | RAD ---
HISTORY: ABD PAIN COMPARISON: 06/09/2016 FINDINGS: LUNGS: No active pulmonary disease. PLEURA: No significant pleural effusion identified, no pneumothorax apparent. CARDIOVASCULAR: Moderate cardiomegaly. Dual lead pacemaker OSSEOUS STRUCTURES: Sternal wires VISUALIZED UPPER ABDOMEN: Normal. OTHER FINDINGS: None. IMPRESSION: No active disease.
[2016-06-24 14:08] LABS: ALB/GLOB RATIO 0.8 (1.1-1.8); ALKALINE PHOSPHATASE 132 U/L (38-133); ALT/SGPT 28 U/L (7-56); AST/SGOT 27 U/L (15-39); BILIRUBIN,TOTAL 0.8 mg/dL (0.2-1.3); BLOOD UREA NITROGEN 16 mg/dL (7-21); CALCIUM 8.3 mg/dL (8.4-10.5); CARBON DIOXIDE 31 mmol/L (21-33); CHLORIDE 101 mmol/L (98-107); GFR AFRICAN-AMERICAN > 60; GLUCOSE,RANDOM 107 mg/dL (70-110); POTASSIUM 4.4 mmol/L (3.6-5.0); SODIUM 136 mmol/L (132-148); TOTAL PROTEIN 6.8 g/dL (5.8-8.3)
--- NOTE | 2016-06-24 14:28 | CT ---
PROCEDURE: CT Abdomen and Pelvis without intravenous contrast HISTORY: Abdominal pain. Relevant surgical history: Appendectomy, cholecystectomy. COMPARISON: 06/09/2016. TECHNIQUE: Contrast Dose: 96 cc Omnipaque 300. Radiation dose: Total exam DLP = mGy-cm. This CT exam was performed using one or more of the following dose reduction techniques: Automated exposure control, adjustment of the mA and/or kV according to patient size, and/or use of iterative reconstruction technique. Total exam DLP = 754.48 mGy-cm. FINDINGS: LOWER THORAX: Stable infiltrates/atelectasis right lower lobe. Stable cardiomegaly. LIVER: Hepatopedal blood flow. Fatty infiltration manifest ultrasonographically as increased GALLBLADDER AND BILE DUCTS: Status post cholecystectomy. No abnormality is seen in the gallbladder fossa. PANCREAS: Unremarkable. No gross lesion or ductal dilatation. SPLEEN: Unremarkable. ADRENALS: Unremarkable. No mass. KIDNEYS AND URETERS: Unremarkable. No hydronephrosis. No solid mass. VASCULATURE: Stable infrarenal abdominal aortic aneurysm. BOWEL: Unremarkable. No obstruction. No gross mural thickening. APPENDIX: Unremarkable. Normal appendix. PERITONEUM: Increase in volume of of abdominal and pelvic ascites. Worsening anasarca. LYMPH NODES: Unremarkable. No enlarged lymph nodes. BLADDER: Unremarkable. REPRODUCTIVE: Unremarkable. BONES: No acute fracture. OTHER FINDINGS: None. IMPRESSION: Increase in volume of abdominal and pelvic ascites. Worsening anasarca. Additional benign and/or incidental findings described above. Concordant results (preliminary interpretation) provided by [employer]. Procedure Completed: 23:33 Preliminary ([facility]) Report: Dictated and Authenticated: 00:03 Final Interpretation: 08:14. June 24, 2016.
[2016-06-24 20:17] LABS: PHOSPHOROUS 3.8 mg/dL (2.5-4.5)
[2016-06-24 20:29] LABS: TROPONIN I 0.03 ng/mL
== END 2016-06-24 19:30 | disposition home or self-care (01) ==
LOC: ED 14:34
DX: R10.9 Unspecified abdominal pain (principal); E11.9 Type 2 diabetes mellitus without complications; J44.9 Chronic obstructive pulmonary disease, unspecified

== ENCOUNTER 2016-07-12 02:18 | Inpatient (IN) | payer MEDICARE, OTHER ==
[2016-07-12 02:18] VITALS: PULSE 87
--- NOTE | 2016-07-12 02:39 | ED PDOC ---
Arrival/HPI - General Chief Complaint: Chest Pain Time Seen by Provider: 07/12/16 02:19 Historian: Patient - History of Present Illness Narrative History of Present Illness (Text): 07/12/16 02:33 Chasidy Alicia is a 71 year old female, whose past medical history includes ischemic cardiomyopathy with recurrent CHF, CAD, CABG, AICD, atrial fibrillation on Coumadin, diabetes, and COPD, presents to the emergency department complaining of 2 day duration of abdominal pain and intermittent chest pain. Denies any difficulty breathing. Denies any fever, chills, headache , dizziness, nausea, vomiting, diarrhea, urinary symptoms, or any other complaints at this time. Time/Duration: < week (2 days ) Symptom Onset: Gradual Severity Level: Mild Activities at Onset: Light Context: Home Past Medical History - Provider Review Nursing Documentation Reviewed: Yes - Infectious Disease Hx of Infectious Diseases: None - Tetanus Immunization Tetanus Immunization: Unknown - Cardiac Hx Cardiac Disorders: Yes ([place] , CAD) Hx Congestive Heart Failure: Yes Hx Hypertension: Yes - Pulmonary Hx Chronic Obstructive Pulmonary Disease (COPD): Yes - Neurological Hx Neurological Disorder: Yes Hx Transient Ischemic Attacks (TIA): Yes - HEENT Hx HEENT Disorder: Yes Hx Deafness: Yes - Renal Hx Renal Disorder: No - Endocrine/Metabolic Hx Diabetes Mellitus Type 2: Yes - Hematological/Oncological Hx Blood Disorders: Yes Hx Cancer: Yes - Integumentary Hx Dermatological Disorder: No - Musculoskeletal/Rheumatological Hx Arthritis: Yes - Gastrointestinal Hx Gastrointestinal Disorders: Yes Hx Liver Failure: Yes Other/Comment: history of ascites/ paracenthesis done in the past - Genitourinary/Gynecological Hx Genitourinary Disorders: Yes Hx Incontinence: Yes - Psychiatric Hx Psychophysiologic Disorder: Yes Hx Anxiety: Yes Hx Depression: Yes Hx Substance Use: No - Surgical History Hx Appendectomy: Yes Hx Cardiac Catheterization: Yes (Stents x 3 PTCA) Hx Cholecystectomy: Yes Hx Coronary Stent: Yes Hx Open Heart Surgery: Yes Hx Orthopedic Surgery: Yes (laminectomy) Other/Comment: Herniated disc repair, partial colectomy, tonsilectomy - Anesthesia Hx Anesthesia: No Hx Anesthesia Reactions: No Hx Malignant Hyperthermia: No - Suicidal Assessment Feels Threatened In Home Enviroment: No Family/Social History - Physician Review Nursing Documentation Reviewed: Yes Family/Social History: No Known Family HX Smoking Status: Current Some Days Smoker Hx Alcohol Use: No Hx Substance Use: No Hx Substance Use Treatment: No Allergies/Home Meds Allergies/Adverse Reactions: Allergies adhesive tape Allergy (Verified 06/08/16 20:51) REDNESS naproxen Allergy (Verified 06/08/16 20:51) VOMITING ciprofloxacin Adverse Reaction (Verified 06/08/16 20:51) ANAPHYLAXIS Home Medications: Home Meds Medication Instructions Recorded Confirmed Furosemide [Lasix] 80 mg PO DAILY 03/06/15 07/12/16 Simvastatin 20 mg PO DAILY 04/25/16 07/12/16 DiphenhydrAMINE [Benadryl] 2 tab PO HS 06/08/16 07/12/16 Review of Systems - Physician Review All systems were reviewed & negative as marked: Yes - Review of Systems Constitutional: Normal. absent: Fatigue, Fevers Respiratory: absent: SOB, Cough, Sputum Cardiovascular: Chest Pain. absent: Palpitations Gastrointestinal: Abdominal Pain. absent: Diarrhea, Nausea, Vomiting Genitourinary Female: Normal Musculoskeletal: Normal Neurological: Normal. absent: Headache, Dizziness Psychiatric: Normal Physical Exam Vital Signs Reviewed: Yes Vital Signs Temp Pulse Resp BP Pulse Ox 07/12/16 05:11 75 16 134/77 07/12/16 02:18 98.2 F 74 18 128/74 99 Temperature: Afebrile Blood Pressure: Normal Pulse: Regular Respiratory Rate: Normal Appearance: Positive for: Non-Toxic, Other (emaciated ) Pain Distress: None Mental Status: Positive for: Alert and Oriented X 3 - Systems Exam Head: Present: Atraumatic, Normocephalic Pupils: Present: PERRL Conjunctiva: Present: Normal Mouth: Present: Moist Mucous Membranes Respiratory/Chest: Present: Clear to Auscultation, Good Air Exchange. No: Respiratory Distress, Accessory Muscle Use Cardiovascular: Present: Normal S1, S2, Irregular Rhythm (irregularly irregular rhythm ). No: Murmurs Abdomen: Present: Tenderness, Distention (ascites), Normal Bowel Sounds, Other ( abdominal hematoma). No: Peritoneal Signs, Rebound, Guarding Upper Extremity: Present: Normal Inspection. No: Cyanosis, Edema Lower Extremity: No: Edema Neurological: Present: GCS=15, CN II-XII Intact, Speech Normal, Motor Func Grossly Intact, Normal Sensory Function Skin: Present: Warm, Dry, Normal Color. No: Rashes Psychiatric: Present: Alert, Oriented x 3, Normal Insight, Normal Concentration Medical Decision Making ED Course and Treatment: 07/12/16 02:43 Impression: A 71 year old female who presents to the emergency department complaining of 2 day duration of abdominal pain and chest pain. Differential Diagnosis included but are not limited to: Plan: -- CT abdomen pelvis -- EKG -- Labs, cardiac enzymes -- Chest X-ray -- Reassess and disposition Progress Notes: EKG interpreted by me: afib @ 84 bpm. occasional PVCs. Inferior and anterolateral infarct. Paced rhythm. 07/12/16 05:02 CT abdomen pelvis reviewed: IMPRESSION: 1. Abdominal wall hematoma. 2. RLL atelectasis and/or pneumonia. 3. Large ascites. 4. Anasarca. 5. Probable cirrhosis. 07/12/16 05:[address] Valdez who is aware and agrees with the plan to observe patient on telemetry. Accepts patient under service with Dr. Quinteros and Dr. Leonard on consult. - Lab Interpretations Lab Results: 07/12/16 03:35 07/12/16 03:35 Lab Results 07/12/16 03:35: WBC 4.8, RBC 5.40, Hgb 14.1, Hct 45.1, MCV 83.5, MCH 26.1, MCHC 31.3, RDW 19.8 H, Plt Count 154, MPV 10.7 07/12/16 03:35: Sodium 138, Potassium 4.7, Chloride 101, Carbon Dioxide 32, Anion Gap 10, BUN 20, Creatinine 0.7, Est GFR ( Amer) > 60, Est GFR (Non- Af Amer) > 60, Random Glucose 99, Calcium 8.1 L, Total Bilirubin 1.0, AST 32, ALT 28, Alkaline Phosphatase 129, Lactate Dehydrogenase 651, Total Creatine Kinase 82, Troponin I 0.03, Total Protein 7.1, Albumin 3.3, Globulin 3.9, Albumin/Globulin Ratio 0.8 L, Lipase 11 L 07/12/16 03:35: PT 44.7 H*, INR 4.14 H*, APTT 49.8 H I have reviewed the lab results: Yes - RAD Interpretation Narrative RAD Interpretations (Text): EXAM: CT Abdomen and Pelvis Without Intravenous Contrast FINDINGS: Limitations: Lack of intravenous contrast. Lower thorax: Moderate cardiomegaly. Pacemaker leads. Coronary artery calcifications. Trace RIGHT pleural effusion. Mild patchy airspace disease posterior RIGHT lower lobe. Small hiatal hernia. ABDOMEN: Liver: Lobulated contour. Gallbladder and bile ducts: Cholecystectomy. No ductal dilation. Pancreas: Unremarkable. No ductal dilation. Spleen: No splenomegaly. Adrenals: Mild hypertrophy of adrenal glands. Kidneys and ureters: Too small to characterize lesion within RIGHT kidney. No hydronephrosis. Stomach and bowel: Postsurgical changes of sigmoid colon. Few scattered diverticula within colon. No definite mural thickening. No obstruction. Appendix: No findings to suggest acute appendicitis. PELVIS: Bladder: Unremarkable. No stones. Reproductive: Unremarkable as visualized. ABDOMEN and PELVIS: Intraperitoneal space: Large amount of free fluid within abdomen and pelvis. No free air. Bones/joints: Degenerative changes of spine. Soft tissues: Moderate stranding throughout subcutaneous tissues. Asymmetric enlargement of LEFT rectus abdominis muscle with 3.3 x 2.8 x 6.2 cm hyperdense mass. Vasculature: Moderate to extensive atherosclerotic disease of visualized arteries. Infrarenal aortic aneurysm, up to 3.5 cm. Lymph nodes: No pathologically enlarged lymph nodes. IMPRESSION: 1. Abdominal wall hematoma. 2. RLL atelectasis and/or pneumonia. 3. Large ascites. 4. Anasarca. 5. Probable cirrhosis. 6. Incidental/non-acute findings are described above. Radiology Orders: 07/12/16 02:36 CHEST PORTABLE [RAD] Stat 07/12/16 02:52 ABD & PELVIS W/O PO OR IV CONT [CT] Stat Finance Admin: Radiologist - EKG Interpretation Interpreted by ED Physician: Yes Type: 12 lead EKG - Scribe Statement The provider has reviewed the documentation as recorded by the Javier Cope Provider Attestation: Provider Scribe Attestation: All medical record entries made by the Javier were at my direction and personally dictated by me. I have reviewed the chart and agree that the record accurately reflects my personal performance of the history, physical exam, medical decision making, and the department course for this patient. I have also personally directed, reviewed, and agree with the discharge instructions and disposition. Disposition/Present on Arrival - Present on Arrival Any Indicators Present on Arrival: No History of DVT/PE: No History of Uncontrolled Diabetes: No Urinary Catheter: No History of Decub. Ulcer: No History Surgical Site Infection Following: None - Disposition Have Diagnosis and Disposition been Completed?: Yes Diagnosis: Ascites, Abdominal pain, Chest pain Disposition: HOSPITALIZED Disposition Time: 05:11 Patient Plan: Observation Patient Problems: Current Active Problems Problem Status Onset Abdominal pain Acute Ascites Acute Chest pain Acute Condition: STABLE
[2016-07-12 03:53] LABS: HEMATOCRIT 45.1 % (36.0-48.0); MEAN CELL VOLUME 83.5 fL (80.0-105.0); MEAN CORPUSCULAR HEMOGLOBIN 26.1 pg (25.0-35.0); MEAN CORPUSCULAR HGB CONC 31.3 g/dl (31.0-37.0); MEAN PLATELET VOLUME 10.7 fl (7.0-11.0); RED CELL DISTRIBUTION WIDTH 19.8 % (11.5-14.5); WHITE BLOOD COUNT 4.8 10^3/ul (4.5-11.0)
[2016-07-12 04:05] LABS: ALB/GLOB RATIO 0.8 (1.1-1.8); ALKALINE PHOSPHATASE 129 U/L (38-133); ALT/SGPT 28 U/L (7-56); AST/SGOT 32 U/L (15-39); BLOOD UREA NITROGEN 20 mg/dL (7-21); CALCIUM 8.1 mg/dL (8.4-10.5); CARBON DIOXIDE 32 mmol/L (21-33); CHLORIDE 101 mmol/L (95-110); GFR AFRICAN-AMERICAN > 60; GLUCOSE,RANDOM 99 mg/dL (70-110); LIPASE 11 U/L (23-300); POTASSIUM 4.7 mmol/L (3.6-5.0); SODIUM 138 mmol/L (132-148); TOTAL PROTEIN 7.1 g/dL (5.8-8.3)
[2016-07-12 04:07] LABS: PARTIAL THROMBOPLASTIN TIME 49.8 Seconds (23.7-30.8)
[2016-07-12 04:12] LABS: TROPONIN I 0.03 ng/mL
[2016-07-12 04:17] LABS: INR 4.14 (0.93-1.08)
--- NOTE | 2016-07-12 04:46 | CT ---
EXAM: CT Abdomen and Pelvis Without Intravenous Contrast CLINICAL HISTORY: 71 years old, female; Pain; Abdominal pain; Generalized TECHNIQUE: Axial computed tomography images of the abdomen and pelvis without intravenous contrast. This CT exam was performed using one or more of the following dose reduction techniques: automated exposure control, adjustment of the mA and/or kV according to patient size, and/or use of iterative reconstruction technique. Coronal and sagittal reformatted images were created and reviewed. COMPARISON: CT - ABD PELVIS IV CONTRAST ONLY 06/23/2016 11:30:15 PM FINDINGS: Limitations: Lack of intravenous contrast. Lower thorax: Moderate cardiomegaly. Pacemaker leads. Coronary artery calcifications. Trace RIGHT pleural effusion. Mild patchy airspace disease posterior RIGHT lower lobe. Small hiatal hernia. ABDOMEN: Liver: Lobulated contour. Gallbladder and bile ducts: Cholecystectomy. No ductal dilation. Pancreas: Unremarkable. No ductal dilation. Spleen: No splenomegaly. Adrenals: Mild hypertrophy of adrenal glands. Kidneys and ureters: Too small to characterize lesion within RIGHT kidney. No hydronephrosis. Stomach and bowel: Postsurgical changes of sigmoid colon. Few scattered diverticula within colon. No definite mural thickening. No obstruction. Appendix: No findings to suggest acute appendicitis. PELVIS: Bladder: Unremarkable. No stones. Reproductive: Unremarkable as visualized. ABDOMEN and PELVIS: Intraperitoneal space: Large amount of free fluid within abdomen and pelvis. No free air. Bones/joints: Degenerative changes of spine. Soft tissues: Moderate stranding throughout subcutaneous tissues. Asymmetric enlargement of LEFT rectus abdominis muscle with 3.3 x 2.8 x 6.2 cm hyperdense mass. Vasculature: Moderate to extensive atherosclerotic disease of visualized arteries. Infrarenal aortic aneurysm, up to 3.5 cm. Lymph nodes: No pathologically enlarged lymph nodes. IMPRESSION: 1. Abdominal wall hematoma. 2. RLL atelectasis and/or pneumonia. 3. Large ascites. 4. Anasarca. 5. Probable cirrhosis. 6. Incidental/non-acute findings are described above.
--- NOTE | 2016-07-12 08:32 | RAD ---
HISTORY: fever COMPARISON: 06/23/2016 FINDINGS: LUNGS: No active pulmonary disease. PLEURA: No significant pleural effusion identified, no pneumothorax apparent. CARDIOVASCULAR: Moderate cardiomegaly OSSEOUS STRUCTURES: No significant abnormalities. VISUALIZED UPPER ABDOMEN: Normal. OTHER FINDINGS: Dual lead pacemaker. Sternal wires IMPRESSION: No active disease.
--- NOTE | 2016-07-12 10:04 | CARD ---
APPROVED REPORT EKG Measurement Heart [id number] <Conclusion> Predominently V. Paced. AF PVC Nl. Pacer Function.
[2016-07-12] MEDS: Digoxin 0.05 mg/mL Elixir 5mL PO SCH (12:26)
--- NOTE | 2016-07-12 15:12 | CON ---
DATE: 07/12/2016 REASON FOR CONSULTATION AND FOLLOWUP: Chest pain, shortness of breath, abdominal pain. BRIEF CLINICAL HISTORY: A 71-year-old female with past medical history significant for ischemic card iomyopathy, recurrent, congestive heart failure, CAD, CABG, pre CABG PTCA, post CABG PTCA, AICD, settlement clerk mayda atrial fibrillation on Coumadin, diabetes, off oral hypoglycemic agent because of recurrent hypog lycemia, recurrent ascites, multiple, status post abdominal paracentesis. Admitted with a complaint of abdominal pain radiating to the chest. Denies any chest pain. PAST MEDICAL HISTORY: Significant for longstanding history of coronary artery disease, status post M I in 1989, history of tPA, history of multiple PTCAs, history of CABG at [facility]. Later on, patient had a mitral valve repair at that time with the CABG and later on, patient had AICD done. Post CABG PTCA was done. History of multiple times abdominal paracentesis because of acc umulation of ascites. PAST SURGICAL HISTORY: Significant for incarcerated hernia status post surgical repair, hypertension , history of AICD, history of open heart surgery, history of mitral valve repair leading to the CABG. SOCIAL HISTORY: Denies smoking. Denies any history of alcohol abuse. ALLERGIES: No known drug allergies. CURRENT MEDICATIONS: The patient is taking at home Coumadin 3 mg daily, simvastatin 20 mg daily, Las ix 80 mg daily, Benadryl and digoxin 0.25 mg daily. ALLERGIES: ALLERGY TO ADHESIVE TAPE, ALLERGY TO NAPROSYN, ALLERGY TO CIPROFLOXACIN. REVIEW OF SYSTEMS: As per HPI. PHYSICAL EXAMINATION: VITAL SIGNS: Temperature afebrile, heart rate 79, blood pressure 131/75. HEENT: PERRLA. Extraocular muscles intact. NECK: Supple. No carotid bruit. No thyromegaly. CHEST: Clear to auscultation. HEART: S1, S2 regular. ABDOMEN: Soft. EXTREMITIES: Clubbing, cyanosis negative. BLOOD WORKUP: WBC 4.8, hemoglobin 14. , hematocrit 45.1, platelet count 154. INR 4.4. Sodium 1 30, potassium 4.4, chloride 101, carbon dioxide 32, anion gap of 10, BUN 20, creatinine 0.7. IMPRESSION: Abdominal pain, ascites, recurrent accumulation of ascites, decompensated congestive hea rt failure, acute on chronic, secondary to systolic dysfunction, decreased left ventricular function, coronary artery disease, ischemic cardiomyopathy, chronic atrial fibrillation, supratherapeutic INR, diabetes off oral hypoglycemic agent because of recurrent hypoglycemia, cardiac cachexia, end-stage cardiomyopathy. RECOMMENDATION: Continue Lasix, continue atorvastatin. Possible abdominal paracentesis. Will follo w with you. Thank you, Dr. Valdez, for providing us the opportunity in taking care of the patient. Repeat the blo od workup in the morning. Tonia Quinteros MD cc: [id number] TT: 07/12/2016 14:23:26 Confirmation # [id number] Dictation # [id number] en
[2016-07-12] MEDS ORDERED: DOBUTamine 500mg/250ml D5W 500 MG/250 ML BAG IV PRN ×2 (16:36→16:56)
[2016-07-12] MEDS: DOBUTamine 500mg/250ml D5W 500 MG/250 ML BAG IV PRN (17:37)
--- NOTE | 2016-07-12 19:59 | HP ---
HISTORY OF PRESENT ILLNESS: The patient is a 71-year-old female with recurrent admissions for CHF, w ho presents to the Emergency Department with increasing abdominal distention and discomfort. She den ies any chest pain. She complains of shortness of breath and dyspnea on mild exertion. There is no nausea, no vomiting, no diaphoresis. There is no melena or bright red blood per rectum. She has had recurrent abdominal paracentesis by Dr. Yaw Leonard in the past for large volume ascites. PAST MEDICAL HISTORY: Includes ischemic cardiomyopathy with recurrent CHF, status post CABG/AICD; pa roxysmal atrial fibrillation, on Coumadin; type 2 diabetes mellitus which is diet controlled, and [employer] D. PAST SURGICAL HISTORY: Includes status post CABG/AICD. CURRENT MEDICATIONS: Include Benadryl 25 mg at bedtime, Coumadin 3 mg daily, digoxin 0.25 mg daily, Lasix 80 mg daily, Lipitor 10 mg daily and Pepcid 20 mg daily. ALLERGIES: INCLUDE NAPROSYN, CIPROFLOXACIN AND ADHESIVE TAPE. SOCIAL HISTORY: The patient has no history of tobacco or alcohol use. She is independent with ADLs and lives with her grandson. She requires assistance with IADLs. REVIEW OF SYSTEMS: Essentially as above. There is no fever, no chills, no cough or hemoptysis, no d ysuria, no hematuria, no vaginal bleeding or discharge. PHYSICAL EXAMINATION: GENERAL: The patient is a well-developed, slightly cachectic female in no acute distress. VITAL SIGNS: Blood pressure 138/88, temperature 98, pulse 78, respiratory rate 19. HEENT: Head is normocephalic, atraumatic. Pupils equal, round, reactive to light. Extraocular move ments intact. NECK: Supple, with no thyromegaly, no carotid bruit. LUNGS: Show bibasilar rales. HEART: Regular rate and rhythm with a grade II-III/ systolic murmur. There is an implanted defibr illator device in the left chest wall which is intact. ABDOMEN: Soft, distended and slightly tense with mild diffuse tenderness with no guarding, no reboun d. Bowel sounds are normoactive. Fluid wave is present. EXTREMITIES: Without cyanosis, clubbing or edema. Dorsalis pedis and posterior tibial pulses are di minished bilaterally. NEUROLOGIC: The patient is awake and responsive without focal, sensory or motor deficits. SKIN: Warm and dry. LABORATORY DATA: WBC is 4.8, hemoglobin 14.1, hematocrit 45.1. Sodium 138, potassium 4.7, chloride 101, CO2 32, BUN 20, creatinine 0.7, glucose 99. INR is elevated at 4.14. IMPRESSION: 1. Ischemic cardiomyopathy with recurrent congestive heart failure and ascites. 2. Coronary artery disease status post coronary artery bypass graft/automatic implantable cardiovert er-defibrillator. 3. Paroxysmal atrial fibrillation. 4. Type 2 diabetes mellitus/diet controlled. 5. Chronic obstructive pulmonary disease. 6. Coagulopathy secondary to Coumadin toxicity. PLAN: Will hold Coumadin. Will obtain consult with Dr. Yaw Leonard for abdominal paracentesis. Obt ain cardiology consult with Dr. Roy/[facility]. Will start low dose dobutamine to improve cardiac outpu t. Physical therapy and social work for discharge planning. Garcia Valdez JD, MD cc: [id number] TT: 07/12/2016 19:58:20 la
[2016-07-12] MEDS ORDERED: Pneumococcal 23-Valent Vaccine IM ONE (20:50)
[2016-07-12 20:51] VITALS: BMI 27.1
[2016-07-13 08:02] LABS: ADD MANUAL DIFF? NO
[2016-07-13 08:05] LABS: BASO # 0.01 K/mm3 (0.0-2.0); BASO % 0.2 % (0.0-3.0); EOS % 0.4 % (1.5-5.0); GRAN # 4.16 (1.4-6.5); GRAN % 77.4 % (50.0-68.0); HEMATOCRIT 39.7 % (36.0-48.0); LYMPH # 0.7 (1.2-3.4); LYMPH % 13.6 % (22.0-35.0); MEAN CELL VOLUME 84.8 fL (80.0-105.0); MEAN CORPUSCULAR HEMOGLOBIN 26.1 pg (25.0-35.0); MEAN CORPUSCULAR HGB CONC 30.7 g/dl (31.0-37.0); MEAN PLATELET VOLUME 10.6 fl (7.0-11.0); MONO # 0.5 (0.1-0.6); MONO % 8.4 % (1.0-6.0); PLATELET COUNT 139 10^3/uL (120.0-450.0); WHITE BLOOD COUNT 5.4 10^3/ul (4.5-11.0)
[2016-07-13 08:14] LABS: INR 2.62 (0.93-1.08)
[2016-07-13] MEDS: Digoxin 0.05 mg/mL Elixir 5mL PO SCH (09:27)
[2016-07-13 09:49] LABS: ALB/GLOB RATIO 0.9 (1.1-1.8); ALKALINE PHOSPHATASE 121 U/L (38-133); ALT/SGPT 26 U/L (7-56); AST/SGOT 27 U/L (15-39); BILIRUBIN,TOTAL 1.2 mg/dL (0.2-1.3); BLOOD UREA NITROGEN 16 mg/dL (7-21); CALCIUM 7.9 mg/dL (8.4-10.5); CARBON DIOXIDE 31 mmol/L (21-33); CHLORIDE 99 mmol/L (95-110); GFR AFRICAN-AMERICAN > 60; GLUCOSE,RANDOM 128 mg/dL (70-110); MAGNESIUM 1.9 mg/dL (1.7-2.2); PHOSPHOROUS 2.9 mg/dL (2.5-4.5); POTASSIUM 4.2 mmol/L (3.6-5.0); SODIUM 136 mmol/L (132-148); TOTAL PROTEIN 6.5 g/dL (5.8-8.3)
--- NOTE | 2016-07-13 12:36 | PN ---
DATE: 07/13/2016 SUBJECTIVE: The patient is lying in bed in no acute distress. She denies chest pain or shortness of breath. She has some mild abdominal discomfort with no nausea, no vomiting, no diarrhea. OBJECTIVE: VITAL SIGNS: Blood pressure 110/66, pulse 77, temperature 97.2, respiratory rate 20. LUNGS: Show a few bibasilar crackles. HEART: Regular rate and rhythm. ABDOMEN: Soft, distended, and slightly tense with mild diffuse tenderness. No guarding, no rebound. Bowel sounds are normoactive. Fluid wave is present. EXTREMITIES: Without cyanosis, clubbing, or edema. SKIN: Warm and dry. LABORATORY DATA: WBC is 5.4, hemoglobin 12.2, hematocrit 39.7. Sodium 136, potassium 4.2, chloride 99, CO2 of 31, BUN 16, creatinine 0.6, glucose 128. INR is 2.62. IMPRESSION: 1. Ischemic cardiomyopathy with recurrent congestive heart failure and ascites. 2. Coronary artery disease, status post coronary artery bypass graft/automatic implantable cardiac d efibrillator. 3. Paroxysmal atrial fibrillation. 4. Type 2 diabetes mellitus/diet controlled. 5. Chronic obstructive pulmonary disease. 6. Coagulopathy secondary to Coumadin toxicity/the patient now in therapeutic range. PLAN: Continue to hold Coumadin pending abdominal paracentesis by Dr. Yaw Leonard. Continue cardiol ogy followup with Dr. Roy/[facility]. Continue low-dose dobutamine to improve cardiac output. Physical therapy and social work for discharge planning. Garcia Valdez JD, MD cc: [id number] TT: 07/13/2016 12:35:40 Confirmation # [id number] Dictation # [id number] maryana
--- NOTE | 2016-07-13 17:35 | PN ---
DATE: 07/13/2016 REASON FOR CONSULTATION: Chest pain, shortness of breath, abdominal pain, history of coronary artery disease, CABG, cardiomyopathy, status post AICD, chronic atrial fibrillation. The patient denies an y chest pain today. Complained of abdominal pain. PHYSICAL EXAMINATION: As follows: VITAL SIGNS: Temperature afebrile, heart rate 80, blood pressure 114/66. HEENT: PERRLA, intact. NECK: Supple. No carotid bruits. No thyromegaly. CHEST: Clear to auscultation. HEART: S1, S2 regular. ABDOMEN: Soft. EXTREMITIES: Clubbing and cyanosis negative. BLOOD WORKUP: As follows: WBC ____, hemoglobin ____, hematocrit 39.7, platelet count 139. INR 2.62 . Sodium 130, potassium 4.2, chloride 99, carbon dioxide 31, anion gap of 10, BUN 16, creatinine 0.6 . TSH 5.01. IMPRESSION: Hypothyroidism, ischemic cardiomyopathy, status post coronary artery bypass graft, statu s post post-coronary artery bypass graft cardiomyopathy, recurrent ascites, automatic implanted cardi ac defibrillator, chronic atrial fibrillation, on Coumadin. Supratherapeutic INR, now today is 2.62. RECOMMENDATION: Continue to hold Coumadin, possible abdominal paracentesis and INR is below therapeu tic range. Interim, continue digoxin, Lasix, atorvastatin, and Dobutrex. We will follow the lab in the morning. Tonia Quinteros MD cc: [id number] TT: 07/13/2016 17:34:22 Confirmation # [id number] Dictation # [id number] sn
--- NOTE | 2016-07-13 20:11 | US ---
PROCEDURE: Ultrasound guided paracentesis. HISTORY: Cardiomyopathy. Cirrhosis with recurrent ascites and abdominal pain. Repeat paracentesis. PHYSICIAN(S): Yaw Leonard MD. TECHNIQUE: The relative risks and indications for the procedure were explained to the patient and informed written consent obtained. Sonography of the abdomen was performed in a supine position. This revealed a moderate amount of non-loculated ascites, greatest in the right lower quadrant. A puncture site was selected and the area was prepped and draped in the usual sterile fashion. 1% Xylocaine was used to anesthetize the skin and soft tissues. A 7 [place]ian paracentesis catheter was trocared into the right lower quadrantand 5000 cc of brian fluid aspirated. No labs were sent.. IMPRESSION: Ultrasound-guided paracentesis in the right lower quadrant. 5000 cc of fluid were aspirated.
[2016-07-13] MEDS ORDERED: Insulin Lispro 1 UNITS/0.01 ML SC STA (23:08)
[2016-07-14 06:46] LABS: ADD MANUAL DIFF? NO
[2016-07-14 07:00] LABS: INR 2.16 (0.93-1.08)
[2016-07-14 07:05] LABS: BASO # 0.01 K/mm3 (0.0-2.0); BASO % 0.2 % (0.0-3.0); EOS % 0.8 % (1.5-5.0); GRAN # 3.51 (1.4-6.5); GRAN % 72.3 % (50.0-68.0); HEMATOCRIT 38.7 % (36.0-48.0); LYMPH # 0.8 (1.2-3.4); LYMPH % 15.4 % (22.0-35.0); MEAN CELL VOLUME 85.4 fL (80.0-105.0); MEAN CORPUSCULAR HEMOGLOBIN 25.8 pg (25.0-35.0); MEAN CORPUSCULAR HGB CONC 30.2 g/dl (31.0-37.0); MEAN PLATELET VOLUME 10.5 fl (7.0-11.0); MONO # 0.6 (0.1-0.6); MONO % 11.3 % (1.0-6.0); PLATELET COUNT 124 10^3/uL (120.0-450.0); RED CELL DISTRIBUTION WIDTH 17.8 % (11.5-14.5); WHITE BLOOD COUNT 4.9 10^3/ul (4.5-11.0)
[2016-07-14 07:15] LABS: BLOOD UREA NITROGEN 17 mg/dL (7-21); CALCIUM 7.7 mg/dL (8.4-10.5); CARBON DIOXIDE 31 mmol/L (21-33); CHLORIDE 98 mmol/L (98-107); GFR AFRICAN-AMERICAN > 60; GLUCOSE,RANDOM 90 mg/dL (70-110); MAGNESIUM 1.8 mg/dL (1.7-2.2); PHOSPHOROUS 2.8 mg/dL (2.5-4.5); POTASSIUM 4.2 mmol/L (3.6-5.0); SODIUM 135 mmol/L (132-148)
[2016-07-14] MEDS: Levothyroxine 25 MCG TAB PO SCH (10:59)
[2016-07-14] MEDS: Digoxin 0.05 mg/mL Elixir 5mL PO SCH (11:25)
[2016-07-14] MEDS: Insulin Reg-MEDIUM-Coverage SC SCH ×3 (11:30→22:12)
--- NOTE | 2016-07-14 15:45 | PN ---
DATE: 07/14/2016 SUBJECTIVE: The patient is lying in bed, in no acute distress. She denies chest pain or shortness o f breath. Her abdominal discomfort has diminished status post abdominal paracentesis. There is no n ausea, no vomiting, no diarrhea. OBJECTIVE: VITAL SIGNS: Blood pressure 103/70, pulse 79, temperature 98.6, respiratory rate 21. LUNGS: Show a few bibasilar crackles. HEART: Regular rate and rhythm. ABDOMEN: Soft, less distended. Bowel sounds are normoactive. No guarding, no rebound. EXTREMITIES: Without cyanosis, clubbing. There is trace to 1+ bipedal edema. NEUROLOGIC: The patient is awake and oriented x 3 without focal, sensory or motor deficits. SKIN: Warm and dry. LABORATORY DATA: WBCs 4.9, hemoglobin 11.7, hematocrit 38.7. Sodium 135, potassium 4.2, chloride 98 , CO2 31, BUN 17, creatinine 0.6, glucose 90. INR is 2.16. PLAN: We will resume Coumadin 2.5 mg daily. Continue cardiology followup with Dr. Roy/Dr. Quinteros. Continue low dose dobutamine to improve cardiac output. Physical therapy and social work for discha rge planning. Garcia Valdez JD, MD cc: [id number] TT: 07/14/2016 15:44:11 Confirmation # [id number] Dictation # [id number] en
[2016-07-14] MEDS: DOBUTamine 500mg/250ml D5W 500 MG/250 ML BAG IV PRN (15:53)
[2016-07-15 06:10] LABS: ADD MANUAL DIFF? NO
[2016-07-15 06:17] LABS: BASO # 0.01 K/mm3 (0.0-2.0); BASO % 0.2 % (0.0-3.0); EOS % 0.5 % (1.5-5.0); GRAN % 75.3 % (50.0-68.0); LYMPH # 0.7 (1.2-3.4); MEAN CELL VOLUME 85.6 fL (80.0-105.0); MEAN CORPUSCULAR HEMOGLOBIN 26.1 pg (25.0-35.0); MEAN CORPUSCULAR HGB CONC 30.5 g/dl (31.0-37.0); MEAN PLATELET VOLUME 11.1 fl (7.0-11.0); MONO # 0.3 (0.1-0.6); PLATELET COUNT 132 10^3/uL (120.0-450.0); RED CELL DISTRIBUTION WIDTH 17.9 % (11.5-14.5); WHITE BLOOD COUNT 4.3 10^3/ul (4.5-11.0)
[2016-07-15 06:24] LABS: INR 1.69 (0.93-1.08)
--- NOTE | 2016-07-15 07:52 | PN ---
DATE: 07/14/2016 REASON FOR CONSULTATION AND FOLLOWUP: Chest pain, shortness of breath, abdominal distention, status post abdominal paracentesis. BRIEF CLINICAL HISTORY: The patient denies any chest pain. Lying flat. Going for abdominal paracentesis today.. PHYSICAL EXAMINATION: VITAL SIGNS: Temperature afebrile, heart rate 73, blood pressure 118/67. HEENT: PERRLA. Extraocular muscles intact. NECK: Supple. No carotid bruits. No thyromegaly. CHEST: Clear to auscultation. HEART: S1, S2 regular. ABDOMEN: Soft. EXTREMITIES: Clubbing and cyanosis negative. LABORATORY DATA: Blood workup as follows: WBC 4.9, hemoglobin ____ hematocrit 38.6 and platelet cou nt 124. Chemistry shows sodium 13____, potassium 4.____, chloride 90, carbon dioxide 31, anion gap o f 10, BUN 17, creatinine 0.6. INR 2.10. IMPRESSION: Abdominal pain, ascites, cardiomyopathy, end-stage ____ , ejection fraction 15% - 20%, d iabetes, hypertension, hyperlipidemia, coronary artery disease, coronary artery bypass graft, chronic atrial fibrillation on Coumadin. RECOMMENDATION: The patient is going for abdominal paracentesis. Coumadin is on hold. Continue dig oxin, continue Dobutrex started. Continue levothyroxine. We will follow with you. Thank you, Dr. Valdez, for providing the opportunity in taking care of the patient. We will repeat th e blood workup in the morning. Tonia Quinteros MD cc: [id number] TT: 07/14/2016 18:25:53 Confirmation # [id number] Dictation # [id number] jn
[2016-07-15] MEDS: Levothyroxine 25 MCG TAB PO SCH (08:27)
[2016-07-15] MEDS: Insulin Reg-MEDIUM-Coverage SC SCH ×4 (08:27→21:46)
[2016-07-15] MEDS: Digoxin 0.05 mg/mL Elixir 5mL PO SCH (09:53)
--- NOTE | 2016-07-15 11:36 | PN ---
DATE: 07/15/2016 SUBJECTIVE: The patient is lying in bed in no acute distress. She denies chest pain or shortness of breath. There is no abdominal pain, nausea or vomiting. OBJECTIVE: VITAL SIGNS: Blood pressure 117/72, temperature 98.1, pulse 82, respiratory rate 20. LUNGS: Clear. HEART: Regular rate and rhythm. ABDOMEN: Soft, nontender. Bowel sounds are normoactive. EXTREMITIES: Without cyanosis, clubbing, or edema. NEUROLOGIC: The patient is awake and oriented without focal, sensory or motor deficits. SKIN: Warm and dry. LABORATORY DATA: WBC is 4.3, hemoglobin 11.6, hematocrit 38.0, INR is 1.69. PLAN: Continue cardiology followup with Dr. Roy/Aldair. We will discontinue IV dobutamine. Coumad in has been restarted. We will monitor PT/INR. Physical therapy and social work for discharge plann ing. Garcia Valdez JD, MD cc: 353 TT: 07/15/2016 11:34:52 Confirmation # [id number] Dictation # [id number] tn
--- NOTE | 2016-07-15 19:30 | PN ---
DATE: 07/15/2016 REASON FOR CONSULTATION: Chest pain, shortness of breath, abdominal distention, status post abdomina l paracentesis, congestive heart failure, [id number] systolic dysfunction. BRIEF CLINICAL HISTORY: This is a 71-year-old female with a past medical history significant for car diomyopathy, ischemic; history of coronary artery disease, history of CABG, history of chronic atrial fibrillation, history of AICD, admitted with abdominal distention, status post thoracentesis. Denie s chest pain, shortness of breath or any palpitations. PHYSICAL EXAMINATION: VITAL SIGNS: Temperature afebrile, heart rate 82, blood pressure 117/72. HEENT: PERRLA. Extraocular muscles intact. NECK: Supple. No carotid bruits. No thyromegaly. CHEST: Clear to auscultation. HEART: S1, S2 regular. ABDOMEN: Soft. EXTREMITIES: Clubbing and cyanosis negative. BLOOD WORKUP: As follows: WBC 4.0, hemoglobin , hematocrit 38.0, platelet count 132. Chemistr y shows sodium 135, potassium 4.2, chloride 98, carbon dioxide 31, anion gap of 10, BUN 30, creatinin e 0.6. IMPRESSION: Decompensated congestive heart failure, [id number] secondary to systolic dysfuncti on; hypothyroidism, diabetes, not on oral hypoglycemics because of recurrent hypoglycemia, cardiac ca chexia, ascites secondary to congestive heart failure, had a 4-chamber dilatation with decreased left ventricular function, status post coronary artery bypass graft, status post percutaneous translumina l coronary angioplasty, chronic atrial fibrillation on anticoagulation. Coumadin was held because of thoracentesis. Restarted, now INR is 1.69. RECOMMENDATION: is started by Dr. Valdez, continue digoxin, continue Lasix, continue Coumadin. Follow up INR. Will follow with you. Thank you, Dr. Valdez, for providing me the opportunity in taking care of the patient. Tonia Quinteros MD cc: [id number] TT: 07/15/2016 19:30:25 Confirmation # [id number] Dictation # [id number] dn
[2016-07-16 07:11] LABS: INR 1.59 (0.93-1.08)
[2016-07-16] MEDS: Insulin Reg-MEDIUM-Coverage SC SCH ×4 (07:54→22:39)
[2016-07-16] MEDS: Levothyroxine 25 MCG TAB PO SCH (08:15)
--- NOTE | 2016-07-16 11:01 | PN ---
DATE: 07/16/2016 Cardiology followup (for Dr. Quinteros). The patient experienced an episode of asymptomatic irregular complex tachycardia which is more repres ents a supraventricular tachycardia. The patient is notable for have end-stage dilated cardiomyopathy. There are no CHF symptoms. PHYSICAL EXAMINATION: VITAL SIGNS: The blood pressure is 106/69, heart rate is in a paced rhythm. NECK: Negative JVD. LUNGS: Decreased breath sounds without rales. HEART: Reveals S1, S2. EXTREMITIES: Without edema. LABORATORIES: The potassium and magnesium are stable. IMPRESSION: 1. Episode of asymptomatic, self-limited supraventricular tachycardia. 2. History of end-stage dilated cardiomyopathy. 3. History of pacemaker placement. 4. Congestive heart failure with right and left heart congestive heart failure. Given these findings, we will hold her transfer to TCU for 24 hours. I will add low dose beta blocke rs to help control her arrhythmias. Yaw Lindsey MD cc: [id number] TT: 07/16/2016 11:00:40 Confirmation # [id number] Dictation # [id number] jn
[2016-07-16] MEDS: Digoxin 0.05 mg/mL Elixir 5mL PO SCH (11:08)
--- NOTE | 2016-07-16 12:31 | PN ---
DATE: 07/16/2016 SUBJECTIVE: The patient is lying in bed in no acute distress. She denies chest pain or shortness of breath. The patient had a 19 beat run of supraventricular tachycardia on telemetry today with no sy mptoms. She was seen by Dr. Yaw Lindsey and will be started on low dose beta blockers and will be obs erved the next 24 hours on telemetry. OBJECTIVE: VITAL SIGNS: Blood pressure 130/80, temperature 98.5, respiratory rate 18, pulse is 80. LUNGS: Clear. HEART: Regular rate and rhythm. ABDOMEN: Soft, nontender, bowel sounds are normoactive. EXTREMITIES: Without cyanosis, clubbing, or edema. NEUROLOGIC: The patient is awake and oriented x 3 without focal sensory or motor deficits. SKIN: Warm and dry. IMPRESSION: 1. Supraventricular tachycardia. 2. Ischemic cardiomyopathy with recurrent congestive heart failure and ascites. 3. Coronary artery disease, status post coronary artery bypass graft/automatic implantable cardiover ter-defibrillator. 4. Paroxysmal atrial fibrillation. 5. Type 2 diabetes mellitus/diet controlled. 6. Chronic obstructive pulmonary disease. 7. Coagulopathy secondary to Coumadin toxicity, resolved. PLAN: Continue cardiology followup. Physical therapy and social work for discharge planning. Garcia Valdez JD, MD cc: 353 TT: 07/16/2016 12:30:27 Confirmation # [id number] Dictation # [id number] jn
[2016-07-17 06:14] VITALS: O2SAT 98
[2016-07-17] MEDS: Insulin Reg-MEDIUM-Coverage SC SCH ×2 (08:14→12:47)
[2016-07-17] MEDS: Levothyroxine 25 MCG TAB PO SCH (09:26)
[2016-07-17] MEDS: Digoxin 0.05 mg/mL Elixir 5mL PO SCH (09:28)
[2016-07-17 13:08] VITALS: BP 114/80; PULSE 79; RESP 18; TEMP 98
--- NOTE | 2016-07-18 09:00 | DS ---
HOSPITAL COURSE: The patient is a 71-year-old female admitted through the Emergency Department on with shortness of breath and abdominal distention secondary to ascites. The patient underwe nt an abdominal paracentesis by Dr. Yaw Leonard on 07/15/2016 without complications. She received a course of low dose dobutamine to improve cardiac output. Her hospital course has been complicated by a 19-beat run of supraventricular tachycardia. Her monitor has been stable for the past 24 hours. She was seen in consultation by Dr. Yaw Lindsey for cardiology. She has also had intermittent hypergl ycemic episodes which are controlled with regular insulin coverage. At the present time, the patient denies chest pain, shortness of breath and is medically stable for discharge to the transitional car e unit for rehabilitation prior to discharge to home. OBJECTIVE: VITAL SIGNS: Blood pressure 107/68, temperature 98.4, pulse 80, respiratory rate 20. LUNGS: Clear. HEART: Regular rate and rhythm. ABDOMEN: Soft, nontender, bowel sounds are normoactive. EXTREMITIES: Without cyanosis, clubbing, or edema. NEUROLOGIC: The patient is awake and oriented x 3 without focal sensory or motor deficits. SKIN: Warm and dry. IMPRESSION: 1. Supraventricular tachycardia. 2. Ischemic cardiomyopathy with recurrent congestive heart failure, and ascites, status post paracen tesis. 3. Coronary artery disease status post coronary artery bypass graft/automatic implantable cardiovert er-defibrillator. 4. Paroxysmal atrial fibrillation. 5. Type 2 diabetes mellitus, diet controlled. 6. Chronic obstructive pulmonary disease. 7. Coagulopathy secondary to Coumadin toxicity, resolved. PLAN: The patient will be discharged to the transitional care unit on the following medications: Be nadryl 25 mg at bedtime, Coumadin 2.5 mg daily, regular insulin coverage low dose protocol, digoxin 0 .25 mg daily, Lasix 80 mg daily, Lipitor 20 mg daily, metoprolol tartrate 12.5 mg twice daily, Pepcid 20 mg daily and Synthroid 25 mcg daily. The patient will be maintained on a heart-healthy diet, act ivities as per physical therapy in the TCU. Garcia Valdez JD, MD cc: 353 TT: 07/18/2016 09:00:21 mn
== END 2016-07-17 13:46 | DRG 432 ==
LOC: ED 02:18 → ERH 05:03 → 2RSO 13:12 → OBSVTOIN 07-13 11:49 → 2RNO 07-13 19:38
PROVIDERS: ADMIT Internal Medicine; ATTEND Internal Medicine
PROC: 0W9G3ZZ Drainage of Peritoneal Cavity, Percutaneous Approach (ICD-10-PCS; principal; 2016-07-13 16:00)
DX: K74.60 Unspecified cirrhosis of liver (principal); R18.8 Other ascites; I50.23 Acute on chronic systolic (congestive) heart failure; R64 Cachexia; E11.649 Type 2 diabetes mellitus with hypoglycemia without coma; I42.0 Dilated cardiomyopathy; I47.1 Supraventricular tachycardia; I48.0 Paroxysmal atrial fibrillation; I11.0 Hypertensive heart disease with heart failure; J44.9 Chronic obstructive pulmonary disease, unspecified; Z79.01 Long term (current) use of anticoagulants; I25.5 Ischemic cardiomyopathy; I48.2 Chronic atrial fibrillation; E03.9 Hypothyroidism, unspecified; I25.10 Atherosclerotic heart disease of native coronary artery without angina pectoris; E78.5 Hyperlipidemia, unspecified; R79.1 Abnormal coagulation profile; T45.515A Adverse effect of anticoagulants, initial encounter; S30.1XXA Contusion of abdominal wall, initial encounter; I25.2 Old myocardial infarction; Z95.1 Presence of aortocoronary bypass graft; Z95.810 Presence of automatic (implantable) cardiac defibrillator

== ENCOUNTER 2016-07-17 13:58 | Inpatient (IN) | payer OTHER ==
[2016-07-17] MEDS: Insulin Reg-MEDIUM-Coverage SC SCH ×2 (17:22→22:42)
[2016-07-17 18:50] VITALS: BMI 24.4
[2016-07-18] MEDS: Levothyroxine 25 MCG TAB PO SCH (05:58)
[2016-07-18 06:46] LABS: ADD MANUAL DIFF? NO
[2016-07-18 07:03] LABS: BASO # 0.01 K/mm3 (0.0-2.0); BASO % 0.2 % (0.0-3.0); EOS % 0.6 % (1.5-5.0); GRAN # 3.42 (1.4-6.5); GRAN % 70.4 % (50.0-68.0); HEMATOCRIT 39.4 % (36.0-48.0); MEAN CELL VOLUME 84.2 fL (80.0-105.0); MEAN CORPUSCULAR HEMOGLOBIN 26.3 pg (25.0-35.0); MEAN CORPUSCULAR HGB CONC 31.2 g/dl (31.0-37.0); MEAN PLATELET VOLUME 11.1 fl (7.0-11.0); MONO # 0.4 (0.1-0.6); MONO % 8.8 % (1.0-6.0); PLATELET COUNT 152 10^3/uL (120.0-450.0); RED CELL DISTRIBUTION WIDTH 17.8 % (11.5-14.5); WHITE BLOOD COUNT 4.9 10^3/ul (4.5-11.0)
[2016-07-18 07:04] LABS: INR 1.7 (0.93-1.08)
[2016-07-18] MEDS: Insulin Reg-MEDIUM-Coverage SC SCH ×4 (07:04→21:29)
[2016-07-18 07:26] LABS: ALB/GLOB RATIO 0.8 (1.1-1.8); ALKALINE PHOSPHATASE 112 U/L (38-133); ALT/SGPT 29 U/L (7-56); AST/SGOT 29 U/L (15-39); BILIRUBIN,TOTAL 1.3 mg/dL (0.2-1.3); BLOOD UREA NITROGEN 28 mg/dL (7-21); CALCIUM 7.9 mg/dL (8.4-10.5); CARBON DIOXIDE 29 mmol/L (21-33); CHLORIDE 98 mmol/L (98-107); GFR AFRICAN-AMERICAN > 60; GLUCOSE,RANDOM 103 mg/dL (70-110); POTASSIUM 4.2 mmol/L (3.6-5.0); SODIUM 132 mmol/L (132-148); TOTAL PROTEIN 6.4 g/dL (5.8-8.3)
[2016-07-18] MEDS ORDERED: Digoxin 0.05 mg/mL Elixir 5mL PO SCH (10:00)
[2016-07-18] MEDS: Digoxin 250 mcg (0.25 mg) Tab PO SCH (14:36)
--- NOTE | 2016-07-18 18:03 | HP ---
HISTORY OF PRESENT ILLNESS: The patient is a 71-year-old female with recurrent admissions for CHF, w ho was admitted to [facility] on 07/13/2016 with increasing abdominal distention, discomf ort. A CAT scan revealed large ascites and she was seen in consultation by Dr. Yaw Leonard, who perf ormed an abdominal paracentesis on 07/14/2016 without complications. The patient also received a cou rse of IV dobutamine. At the present time, she denies any chest pain or shortness of breath and is m edically stable for discharge to the transitional care unit for further evaluation and subacute rehab ilitation. PAST MEDICAL HISTORY: Includes ischemic cardiomyopathy with recurrent CHF, status post CABG/AICD, pa roxysmal atrial fibrillation on Coumadin, type 2 diabetes mellitus, which is diet controlled, and [employer] D. PAST SURGICAL HISTORY: Includes status post CABG/AICD. CURRENT MEDICATIONS: Include Benadryl 25 at bedtime, Coumadin 2.5 mg daily, digoxin 0.25 mg daily, L asix 80 mg daily, Lipitor 10 mg daily, and Pepcid 20 mg daily. ALLERGIES: INCLUDE NAPROSYN, CIPROFLOXACIN, AND ADHESIVE TAPE. SOCIAL HISTORY: The patient has no history of tobacco or alcohol use. She is independent with ADLs and lives with her grandson. She requires assistance with IADLs. REVIEW OF SYSTEMS: There is no chest pain, no shortness of breath, no abdominal pain, no nausea, no vomiting, no diarrhea, no melena, no bright red blood per rectum, no fever, no chills, no cough, or h emoptysis. PHYSICAL EXAMINATION: GENERAL: The patient is a well-developed, slightly cachectic female in no acute distress. VITAL SIGNS: Blood pressure 116/76, temperature 97.3, pulse 73, respiratory rate 20. HEENT: Head is normocephalic, atraumatic. Pupils equal, round, reactive to light. Extraocular move ments intact. NECK: Supple, with no thyromegaly, no carotid bruit. LUNGS: Clear. HEART: Regular rate and rhythm. Grade II/IV to III/ systolic murmur. There is an implanted defib rillator device in the left chest wall, which is intact. ABDOMEN: Soft, nontender, bowel sounds are normoactive. EXTREMITIES: Without cyanosis, clubbing, or edema. NEUROLOGIC: The patient is awake and responsive without focal sensory or motor deficits. SKIN: Warm and dry. LABORATORY DATA: WBC is 4.9, hemoglobin 12.3, hematocrit 39.4. Sodium 132, potassium 4.2, chloride 98, CO2 29, BUN 28, creatinine 0.7, glucose 103. INR is 1.7. IMPRESSION: 1. Ischemic cardiomyopathy with recurrent congestive heart failure and ascites, status post abdomina l paracentesis. 2. Coronary artery disease status post coronary artery bypass graft/automatic implantable cardiovert er-defibrillator. 3. Paroxysmal atrial fibrillation. 4. Type 2 diabetes mellitus/diet controlled. 5. Chronic obstructive pulmonary disease. 6. Coagulopathy secondary to Coumadin toxicity is resolved. PLAN: The patient is admitted to the transitional care unit for subacute rehab prior to discharge. Will obtain cardiology consult from Dr. Roy/Dr. Quinteros, physical therapy and social work for dischar ge planning. Garcia Valdez JD, MD cc: 353 TT: 07/18/2016 18:02:21 marlyn
[2016-07-19] MEDS: Levothyroxine 25 MCG TAB PO SCH (05:48)
[2016-07-19] MEDS: Insulin Reg-MEDIUM-Coverage SC SCH ×4 (06:35→22:11)
[2016-07-19 07:16] LABS: INR 1.61 (0.93-1.08)
--- NOTE | 2016-07-19 08:07 | CON ---
DATE: 07/18/2016 REASON FOR CONSULTATION: Congestive heart failure, coronary artery disease, coronary artery bypass g jillian. BRIEF CLINICAL HISTORY: This is a 71-year-old female with a past medical history significant for cor onary artery disease, coronary artery bypass graft, chronic atrial fibrillation, diabetes, multiple a dmissions with decompensated congestive failure, 4 chamber , admitted with decompensated congest christiana heart failure, abdominal pain and swelling. Underwent an abdominal paracentesis. Now the patien t is in the transitional care unit for continuity of care. Denies any chest pain, shortness of breat h or any palpitation. PAST MEDICAL HISTORY: Is significant for longstanding history of coronary artery disease, status pos t [place] in , , history of PTCA, history of CABG at [facility]. Later on, the la nena ent had mitral valve repair and CABG as well as AICD. PAST SURGICAL HISTORY: Is significant for incarcerated hernia surgery, multiple admissions with abdo jaye distention, ascites, status post abdominal paracentesis. SOCIAL HISTORY: Denies any , denies any history of alcohol abuse. PHYSICAL EXAMINATION: VITAL SIGNS: Temperature afebrile, heart rate 85, blood pressure 105/68. HEENT: PERRLA. Extraocular muscles intact. NECK: Supple. No carotid bruits. No thyromegaly. CHEST: Clear to auscultation. HEART: S1, S2 regular. ABDOMEN: Soft. EXTREMITIES: Clubbing and cyanosis negative. LABORATORY DATA: Blood workup as follows: WBC is 4.9, hemoglobin 12.0, hematocrit 39.4, platelet co unt 152. Chemistry shows sodium , potassium , chloride 97, carbon dioxide , anion gap of 9, BUN 20, creatinine 0.7. IMPRESSION: Decompensated heart failure, [id number] systolic dysfunction, diabetes, hypertensi on, hyperlipidemia, coronary artery disease, cardiomyopathy, ischemic, status post abdominal paracent esis, chronic atrial fibrillation on anticoagulation; Coumadin is held for the abdominal paracentesis . The patient is not on oral hypoglycemic because of recurrent hypoglycemia. Cardiac cachexia. RECOMMENDATION: Continue digoxin, continue Coumadin. Follow PT/INR. Continue atorvastatin, continu e Lasix. Will repeat the PT/INR in the morning. Will follow with you. Thank you, Dr. Valdez, for providing me the opportunity in taking care of the patient. Tonia Quinteros MD cc: 305 TT: 07/18/2016 21:39:04 Confirmation # [id number] Dictation # [id number] dn
[2016-07-19] MEDS: Digoxin 250 mcg (0.25 mg) Tab PO SCH (14:34)
--- NOTE | 2016-07-19 14:57 | PN ---
DATE: 07/19/2016 SUBJECTIVE: The patient is lying in bed in no acute distress. She denies chest pain or shortness of breath. OBJECTIVE: VITAL SIGNS: Blood pressure 107/65, temperature 97.4, pulse 85, respiratory rate 15. LUNGS: Clear. HEART: Regular rate and rhythm. ABDOMEN: Soft, nontender, bowel sounds are normoactive. EXTREMITIES: Without cyanosis, clubbing, or edema. NEUROLOGIC: The patient is awake and oriented x 3 without focal sensory or motor deficits. SKIN: Warm and dry. IMPRESSION: 1. Ischemic cardiomyopathy with recurrent congestive heart failure, and ascites, status post abdomin al paracentesis. 2. Coronary artery disease, status post coronary artery bypass graft/automatic implantable cardiover ter-defibrillator. 3. Paroxysmal atrial fibrillation, on Coumadin. 4. Type 2 diabetes mellitus/diet controlled. 5. Chronic obstructive pulmonary disease. PLAN: Continue physical therapy and social work for discharge planning. Continue cardiology followu p with Dr. Roy/Aldair. Garcia Valdez JD, MD cc: 353 TT: 07/19/2016 14:56:55 Confirmation # [id number] Dictation # [id number] bang
[2016-07-20] MEDS: Levothyroxine 25 MCG TAB PO SCH (05:35)
[2016-07-20 07:22] LABS: INR 1.6 (0.93-1.08)
[2016-07-20] MEDS: Insulin Reg-MEDIUM-Coverage SC SCH ×4 (07:35→22:45)
--- NOTE | 2016-07-20 14:10 | PN ---
DATE: 07/20/2016 SUBJECTIVE: The patient is lying in bed in no acute distress. She denies chest pain or shortness of breath. OBJECTIVE: VITAL SIGNS: Blood pressure 101/65, temperature 98.6, pulse 80, respiratory rate 20. LUNGS: Clear. HEART: Regular rate and rhythm. ABDOMEN: Soft, nontender, bowel sounds are normoactive. EXTREMITIES: Without cyanosis, clubbing, or edema. NEUROLOGIC: The patient is awake and oriented x 3 without focal sensory or motor deficits. SKIN: Warm and dry. IMPRESSION: 1. Ischemic cardiomyopathy with recurrent congestive heart failure and ascites, status post abdomina l paracentesis. 2. Coronary artery disease, status post coronary artery bypass graft/automatic implantable cardiover ter-defibrillator. 3. Paroxysmal atrial fibrillation on Coumadin. 4. Type 2 diabetes mellitus, diet controlled. 5. Chronic obstructive pulmonary disease. PLAN: Continue physical therapy and social work for discharge planning. Continue cardiology followu p with Dr. Roy and Dr. Quinteros. Garcia Valdez JD, MD cc: 353 TT: 07/20/2016 14:09:57 Confirmation # [id number] Dictation # [id number] mayela
[2016-07-20] MEDS: Digoxin 250 mcg (0.25 mg) Tab PO SCH (14:15)
[2016-07-21] MEDS: Levothyroxine 25 MCG TAB PO SCH (05:34)
[2016-07-21] MEDS: Insulin Reg-MEDIUM-Coverage SC SCH ×4 (06:51→21:43)
[2016-07-21 07:22] LABS: INR 1.68 (0.93-1.08)
[2016-07-21] MEDS ORDERED: Sodium Chloride 0.45% 1,000 ML IV SCH (11:30)
[2016-07-21] MEDS: Digoxin 250 mcg (0.25 mg) Tab PO SCH (13:52)
--- NOTE | 2016-07-21 14:30 | PN ---
DATE: 07/21/2016 SUBJECTIVE: The patient is lying in bed in no acute distress. OBJECTIVE: VITAL SIGNS: Blood pressure 101/65, temperature 98.6, pulse 80, respiratory rate 20. LUNGS: Clear. HEART: Regular rate and rhythm. ABDOMEN: Soft, nontender. Bowel sounds are normoactive. EXTREMITIES: Without cyanosis, clubbing, or edema. NEUROLOGIC: The patient is awake and oriented x 3 without focal sensory or motor deficits. SKIN: Warm and dry. IMPRESSION: 1. Ischemic cardiomyopathy with recurrent congestive heart failure and ascites, status post abdomina l paracentesis. 2. Coronary artery disease, status post coronary artery bypass graft/automatic implantable cardiover ter-defibrillator. 3. Paroxysmal atrial fibrillation on Coumadin. 4. Type 2 diabetes mellitus/diet controlled. 5. Chronic obstructive pulmonary disease. PLAN: Continue physical therapy and social work for discharge planning. Continue cardiology followu p with Dr. Roy/Aldair. Garcia Valdez JD, MD cc: 353 TT: 07/21/2016 14:30:37 Confirmation # [id number] Dictation # [id number] tn
[2016-07-22] MEDS: Levothyroxine 25 MCG TAB PO SCH (05:36)
[2016-07-22] MEDS: Insulin Reg-MEDIUM-Coverage SC SCH ×4 (06:55→21:52)
[2016-07-22 07:30] LABS: INR 1.72 (0.93-1.08)
--- NOTE | 2016-07-22 11:30 | PN ---
DATE: 07/22/2016 SUBJECTIVE: The patient is lying in bed in no acute distress. She denies chest pain or shortness of breath. OBJECTIVE: VITAL SIGNS: Blood pressure 118/74, temperature 98.2, pulse 76, respiratory rate 20. LUNGS: Show a few bibasilar crackles. HEART: Regular rate and rhythm. ABDOMEN: Soft, nontender. Bowel sounds are normoactive. EXTREMITIES: With 1+ to 2+ bipedal edema. NEUROLOGIC: The patient is awake and responsive without focal sensory or motor deficits. SKIN: Warm and dry. IMPRESSION: 1. Ischemic cardiomyopathy with recurrent congestive heart failure, and ascites, status post abdomin al paracentesis. 2. Coronary artery disease, status post coronary artery bypass graft/automatic implantable cardiover ter-defibrillator. 3. Paroxysmal atrial fibrillation on Coumadin. 4. Type 2 diabetes mellitus/diet controlled. 5. Chronic obstructive pulmonary disease. PLAN: We will increase Lasix to 160 mg daily. Check labs, BNP, digoxin level, and INR. Discontinue beta blockers. Continue cardiology followup with Dr. Roy/Aldair. Continue physical therapy and so cial work for discharge planning. Garcia Valdez JD, MD cc: 353 TT: 07/22/2016 11:29:17 Confirmation # [id number] Dictation # [id number] tn
[2016-07-22 11:44] LABS: ADD MANUAL DIFF? NO
[2016-07-22 11:53] LABS: BASO # 0.01 K/mm3 (0.0-2.0); BASO % 0.2 % (0.0-3.0); EOS % 0.9 % (1.5-5.0); GRAN % 73.5 % (50.0-68.0); HEMATOCRIT 37.2 % (36.0-48.0); LYMPH # 0.8 (1.2-3.4); LYMPH % 17.4 % (22.0-35.0); MEAN CELL VOLUME 87.1 fL (80.0-105.0); MEAN CORPUSCULAR HEMOGLOBIN 26.9 pg (25.0-35.0); MEAN CORPUSCULAR HGB CONC 30.9 g/dl (31.0-37.0); MEAN PLATELET VOLUME 10.4 fl (7.0-11.0); MONO # 0.4 (0.1-0.6); PLATELET COUNT 166 10^3/uL (120.0-450.0); RED CELL DISTRIBUTION WIDTH 18.6 % (11.5-14.5); WHITE BLOOD COUNT 4.5 10^3/ul (4.5-11.0)
[2016-07-22 12:01] LABS: ALB/GLOB RATIO 0.9 (1.1-1.8); ALKALINE PHOSPHATASE 140 U/L (38-133); ALT/SGPT 31 U/L (7-56); AST/SGOT 24 U/L (15-39); BILIRUBIN,TOTAL 1.1 mg/dL (0.2-1.3); BLOOD UREA NITROGEN 31 mg/dL (7-21); CALCIUM 7.9 mg/dL (8.4-10.5); CARBON DIOXIDE 31 mmol/L (21-33); CHLORIDE 95 mmol/L (98-107); GFR AFRICAN-AMERICAN > 60; GLUCOSE,RANDOM 189 mg/dL (70-110); POTASSIUM 3.9 mmol/L (3.6-5.0); SODIUM 134 mmol/L (132-148)
[2016-07-22] MEDS: Digoxin 250 mcg (0.25 mg) Tab PO SCH (14:00)
--- NOTE | 2016-07-22 18:53 | PN ---
DATE: 07/22/2016 REASON FOR CONSULTATION AND FOLLOWUP: Congestive , coronary artery disease, coronary artery byp ass surgery. SUBJECTIVE: The patient denies any chest pain, shortness of breath or any palpitation. PHYSICAL EXAMINATION: VITAL SIGNS: Temperature afebrile, heart rate , blood pressure 110/75. HEENT: PERRLA. Extraocular muscles intact. NECK: Supple. No carotid bruits. No thyromegaly. CHEST: Clear to auscultation. HEART: S1, S2 regular. ABDOMEN: Soft. EXTREMITIES: Clubbing and cyanosis negative. LABORATORY DATA: Blood workup as follows: WBC 4.5, hemoglobin , hematocrit 37.2, platelet coun t 166. Chemistry shows sodium 134, potassium 3.9, chloride 95, carbon dioxide 31, anion gap of ____, BUN 31, creatine 0.9. IMPRESSION: Decompensated congestive heart failure, acute on chronic systolic dysfunction, decreased left ventricular function, coronary artery disease, coronary artery bypass graft, history of myocard ial infarction om 1990, history of chronic atrial fibrillation, history of diabetes, is status post a utomatic implantable cardioverter-defibrillator, history of recurrent abdominal ascites, abdomi nal paracentesis. RECOMMENDATION: Continue Coumadin, goal is to keep INR between 2-2.5; today INR is 1.72. We will in crease to 3 mg of Coumadin. Continue atorvastatin, continue Lasix, continue . Overall, the pat carternt's condition is critical. Long-Term prognosis is guarded. Will follow with you. Thank you, Dr. Valdez, for providing me the opportunity in taking care of the patient. Tonia Quinteros MD cc: 305 TT: 07/22/2016 18:52:14 Confirmation # [id number] Dictation # [id number] dn
[2016-07-23] MEDS: Levothyroxine 25 MCG TAB PO SCH (05:33)
[2016-07-23] MEDS: Insulin Reg-MEDIUM-Coverage SC SCH ×4 (06:36→22:03)
[2016-07-23 08:57] LABS: INR 1.8 (0.93-1.08)
[2016-07-23] MEDS: Digoxin 250 mcg (0.25 mg) Tab PO SCH (13:57)
[2016-07-24] MEDS: Levothyroxine 25 MCG TAB PO SCH (05:23)
[2016-07-24] MEDS: Insulin Reg-MEDIUM-Coverage SC SCH ×4 (06:40→22:00)
[2016-07-24 09:56] LABS: INR 1.94 (0.93-1.08)
[2016-07-24] MEDS: Digoxin 250 mcg (0.25 mg) Tab PO SCH (13:57)
[2016-07-25] MEDS: Levothyroxine 25 MCG TAB PO SCH (05:14)
[2016-07-25] MEDS: Insulin Reg-MEDIUM-Coverage SC SCH ×4 (06:45→21:21)
[2016-07-25 07:20] LABS: INR 1.87 (0.93-1.08)
[2016-07-25] MEDS: Digoxin 250 mcg (0.25 mg) Tab PO SCH (13:48)
[2016-07-25 13:50] VITALS: PULSE 70
[2016-07-25 16:17] VITALS: BP 117/87; PULSE 52; RESP 18; TEMP 98.1; O2SAT 98
--- NOTE | 2016-07-25 16:32 | PN ---
DATE: 07/25/2016 REASON FOR CONSULTATION AND FOLLOWUP: Decompensated congestive heart failure, acute on chronic conge stive heart failure secondary to systolic dysfunction, coronary artery disease status post bypass kayy kayla. The patient denies any chest pain, shortness of breath, any palpitation. Complained of mild a bdominal distention. PHYSICAL EXAMINATION: VITAL SIGNS: Temperature afebrile, heart rate 61, blood pressure 104/71. HEENT: PERRLA. Extraocular muscles intact. NECK: Supple. No carotid bruit or thyromegaly. CHEST: Clear to auscultation. HEART: S1, S2 regular. ABDOMEN: Soft. EXTREMITIES: Clubbing and cyanosis negative. BLOOD WORKUP: As follows: WBC 4.5, hemoglobin 11, hematocrit 37.2, platelet count 166. Chemistry s hows sodium as of 07/22/2016, sodium 134, potassium 3.9, chloride 95, carbon dioxide 30, anion gap of 12, BUN 31, creatinine 0.9. BNP of 4450. INR today is 1.87. IMPRESSION: Paroxysmal atrial fibrillation, cardiomyopathy, 4-chamber dilatation, recurrent ascites, recurrent congestive heart failure, coronary artery disease, status post tissue plasminogen activato r in 1989, history of multiple percutaneous transluminal coronary angioplasties ____ patient, coronar y artery bypass graft and mitral valve replacement, history of automatic implantable cardioverter-def ibrillator; diabetes, off oral hypoglycemic because of recurrent hypoglycemia; cardiac cachexia. RECOMMENDATION: Increase Coumadin to 4 mg today and then will start 3 from tomorrow. Continue atorv astatin, continue Lasix. Overall, the patient's condition is critical. Nursing Home prognosis is extrem rosi guarded. Will follow with you. Thank you, Dr. Valdez, for providing the opportunity in taking care of the patient. Tonia Quinteros MD cc: 305 TT: 07/25/2016 16:31:47 Confirmation # [id number] Dictation # [id number] mn
--- NOTE | 2016-07-25 18:42 | DS ---
HOSPITAL COURSE: The patient is a 71-year-old female admitted to the transitional care unit status p ost discharge from [facility] for recurrent congestive heart failure. The patient has had an u neventful course on the transitional care unit and is medically stable for discharge. There are no c omplaints of chest pain or shortness of breath. She has been out of bed ambulating and is in no acut e distress. PHYSICAL EXAMINATION: VITAL SIGNS: Blood pressure 104/71, temperature 97.3, pulse 61, respiratory rate 20. LUNGS: Clear. HEART: Regular rate and rhythm. ABDOMEN: Soft, nontender, bowel sounds are normoactive. EXTREMITIES: Without cyanosis, clubbing, or edema. NEUROLOGIC: The patient is awake and oriented x 3 without focal sensory or motor deficits. SKIN: Warm and dry. IMPRESSION: 1. Recurrent congestive heart failure/ischemic cardiomyopathy. 2. Coronary artery disease status post coronary artery bypass graft/automatic implantable cardiovert er-defibrillator. 3. Paroxysmal atrial fibrillation. 4. Type 2 diabetes mellitus/diet controlled. 5. Chronic obstructive pulmonary disease. PLAN: The patient will be discharged to home on the following medications: Coumadin 3 mg daily, [place] 80 mg daily, Lipitor 20 mg daily, Pepcid 20 mg daily, Synthroid 25 mcg daily and digoxin 0.25 mg d aily. The patient will be maintained on a heart-healthy diet, activities ad libitum. She will be se en in my office within the next 1-2 weeks. Garcia Valdez JD, MD cc: [id number] TT: 07/25/2016 18:41:39 ln
== END 2016-07-25 21:30 | disposition home or self-care (01) | DRG 292 ==
LOC: TRCU 13:58
PROVIDERS: ADMIT Internal Medicine; ATTEND Internal Medicine
PROC: F07Z9FZ Gait Training/Functional Ambulation Treatment using Assistive, Adaptive, Supportive or Protective Equipment (ICD-10-PCS; principal; 2016-07-19)
PROC: F07Z5ZZ Bed Mobility Treatment (ICD-10-PCS; 2016-07-19)
PROC: F07Z8ZZ Transfer Training Treatment (ICD-10-PCS; 2016-07-19)
PROC: F07L6ZZ Therapeutic Exercise Treatment of Musculoskeletal System - Lower Back / Lower Extremity (ICD-10-PCS; 2016-07-19)
PROC: F08Z2FZ Grooming/Personal Hygiene Treatment using Assistive, Adaptive, Supportive or Protective Equipment (ICD-10-PCS; 2016-07-19)
PROC: F08Z1FZ Dressing Techniques Treatment using Assistive, Adaptive, Supportive or Protective Equipment (ICD-10-PCS; 2016-07-19)
DX: I11.0 Hypertensive heart disease with heart failure (principal); I50.23 Acute on chronic systolic (congestive) heart failure; R18.8 Other ascites; R64 Cachexia; I48.0 Paroxysmal atrial fibrillation; J44.9 Chronic obstructive pulmonary disease, unspecified; I25.5 Ischemic cardiomyopathy; I25.10 Atherosclerotic heart disease of native coronary artery without angina pectoris; E11.9 Type 2 diabetes mellitus without complications; I48.2 Chronic atrial fibrillation; E78.5 Hyperlipidemia, unspecified; R14.0 Abdominal distension (gaseous); Z68.24 Body mass index [BMI] 24.0-24.9, adult; I25.2 Old myocardial infarction; Z95.1 Presence of aortocoronary bypass graft; Z98.61 Coronary angioplasty status; Z79.01 Long term (current) use of anticoagulants; Z95.810 Presence of automatic (implantable) cardiac defibrillator

== ENCOUNTER 2016-08-05 19:41 | Observation (INO) | payer MEDICARE, OTHER ==
[2016-08-05 19:42] VITALS: PULSE 70
[2016-08-05 20:00] VITALS: BMI 24.7
[2016-08-05 20:12] VITALS: RESP 18
[2016-08-05 20:51] LABS: ADD MANUAL DIFF? NO
[2016-08-05 20:57] LABS: VENOUS BLOOD GAS BASE EXCESS 4.9 mmol/L (0.0-2.0); VENOUS BLOOD PH 7.32 (7.32-7.43)
[2016-08-05 21:08] LABS: ALB/GLOB RATIO 0.8 (1.1-1.8); ALKALINE PHOSPHATASE 141 U/L (38-133); ALT/SGPT 19 U/L (7-56); AST/SGOT 32 U/L (15-39); BILIRUBIN,TOTAL 1.2 mg/dL (0.2-1.3); BLOOD UREA NITROGEN 21 mg/dL (7-21); CALCIUM 8.3 mg/dL (8.4-10.5); CARBON DIOXIDE 30 mmol/L (21-33); CHLORIDE 100 mmol/L (98-107); GFR AFRICAN-AMERICAN > 60; GLUCOSE,RANDOM 84 mg/dL (70-110); LIPASE 28 U/L (23-300); SODIUM 136 mmol/L (132-148); TOTAL PROTEIN 7.2 g/dL (5.8-8.3)
[2016-08-05 21:11] LABS: HEMATOCRIT 44.1 % (36.0-48.0); MEAN CELL VOLUME 88.6 fL (80.0-105.0); MEAN CORPUSCULAR HEMOGLOBIN 26.9 pg (25.0-35.0); MEAN CORPUSCULAR HGB CONC 30.4 g/dl (31.0-37.0); WHITE BLOOD COUNT 3.9 10^3/ul (4.5-11.0)
[2016-08-05 21:12] LABS: RED CELL DISTRIBUTION WIDTH 18.3 % (11.5-14.5)
[2016-08-05 21:13] LABS: BASO % 0.5 % (0.0-3.0); EOS % 0.8 % (1.5-5.0); GRAN % 78.4 % (50.0-68.0); LYMPH % 12.6 % (22.0-35.0); MEAN PLATELET VOLUME 11.3 fl (7.0-11.0); MONO % 7.7 % (1.0-6.0); PLATELET COUNT 145 10^3/uL (120.0-450.0)
[2016-08-05 21:14] LABS: BASO # 0.02 K/mm3 (0.0-2.0); GRAN # 3.04 (1.4-6.5); LYMPH # 0.5 (1.2-3.4); MONO # 0.3 (0.1-0.6)
[2016-08-05 21:18] LABS: INR 2.6 (0.93-1.08); PARTIAL THROMBOPLASTIN TIME 29.3 Seconds (23.7-30.8)
[2016-08-05 21:19] LABS: TROPONIN I 0.02 ng/mL
[2016-08-05 21:20] LABS: AMYLASE < 30 U/L (35-125); POTASSIUM 5.3 mmol/L (3.6-5.0)
--- NOTE | 2016-08-05 22:41 | ED PDOC ---
Arrival/HPI - General Chief Complaint: Abdominal Pain Time Seen by Provider: 08/05/16 19:50 Historian: Patient - History of Present Illness Narrative History of Present Illness (Text): 08/05/16 22:00 A 71 year old female, whose past medical history includes coronary artery disease, diabetes and chronic obstructive pulmonary disease, presents to the emergency department complaining of abdominal pain for the past 2 weeks. Patient was admitted to the emergency department a week and a half ago. Patient has history of ascites. Denies any other complaints at this time. Symptom Onset: Sudden Symptom Course: Unchanged Activities at Onset: Rest Context: Home Past Medical History - Provider Review Nursing Documentation Reviewed: Yes - Infectious Disease Hx of Infectious Diseases: None - Tetanus Immunization Tetanus Immunization: Unknown - Reproductive Menopause: Yes - Cardiac Hx Cardiac Disorders: Yes (OK , CAD) Hx Congestive Heart Failure: Yes Hx Hypertension: Yes Other/Comment: poor circulation noted to nose, fingertips and toes. Pt reports hx of raynauds - Pulmonary Hx Chronic Obstructive Pulmonary Disease (COPD): Yes - Neurological Hx Neurological Disorder: Yes Hx Transient Ischemic Attacks (TIA): Yes - HEENT Hx HEENT Disorder: Yes Hx Deafness: Yes - Renal Hx Renal Disorder: No - Endocrine/Metabolic Hx Diabetes Mellitus Type 2: Yes - Hematological/Oncological Hx Blood Disorders: Yes Hx Cancer: Yes - Integumentary Hx Dermatological Disorder: No - Musculoskeletal/Rheumatological Hx Falls: Yes - Gastrointestinal Hx Gastrointestinal Disorders: Yes Hx Liver Failure: Yes Other/Comment: history of ascites/ paracenthesis done in the past - Genitourinary/Gynecological Hx Genitourinary Disorders: Yes Hx Incontinence: Yes - Psychiatric Hx Psychophysiologic Disorder: Yes Hx Anxiety: Yes Hx Depression: Yes Hx Substance Use: No - Surgical History Hx Appendectomy: Yes Hx Cholecystectomy: Yes Hx Open Heart Surgery: Yes Hx Orthopedic Surgery: Yes (laminectomy) Other/Comment: Herniated disc repair, partial colectomy, tonsilectomy - Anesthesia Hx Anesthesia: Yes Hx Anesthesia Reactions: No Hx Malignant Hyperthermia: No - Suicidal Assessment Feels Threatened In Home Enviroment: No Family/Social History - Physician Review Nursing Documentation Reviewed: Yes Family/Social History: No Known Family HX Smoking Status: Current Some Days Smoker Hx Alcohol Use: No Hx Substance Use: No Hx Substance Use Treatment: No Allergies/Home Meds Allergies/Adverse Reactions: Allergies adhesive tape Allergy (Verified 08/05/16 19:51) REDNESS naproxen Allergy (Verified 08/05/16 19:51) VOMITING ciprofloxacin Adverse Reaction (Verified 08/05/16 19:51) ANAPHYLAXIS Home Medications: Home Meds Medication Instructions Recorded Confirmed Simvastatin 20 mg PO DAILY 04/25/16 08/05/16 DiphenhydrAMINE [Benadryl] 2 tab PO HS 06/08/16 08/05/16 Review of Systems - Physician Review All systems were reviewed & negative as marked: Yes - Review of Systems Constitutional: absent: Fevers Respiratory: absent: SOB Gastrointestinal: Abdominal Pain Physical Exam Vital Signs Reviewed: Yes Vital Signs Temp Pulse Resp BP Pulse Ox 08/06/16 04:00 77 18 125/82 97 08/05/16 22:00 81 18 105/68 99 08/05/16 20:11 97.3 F L 76 18 108/69 08/05/16 19:58 108/69 Blood Pressure: Normal Appearance: Positive for: Well-Appearing, Non-Toxic, Comfortable Pain Distress: None Mental Status: Positive for: Alert and Oriented X 3 - Systems Exam Head: Present: Atraumatic, Normocephalic Pupils: Present: PERRL Extroacular Muscles: Present: EOMI Conjunctiva: Present: Normal Mouth: Present: Moist Mucous Membranes Neck: Present: Normal Range of Motion Respiratory/Chest: Present: Clear to Auscultation, Good Air Exchange. No: Respiratory Distress, Accessory Muscle Use Cardiovascular: Present: Regular Rate and Rhythm, Normal S1, S2. No: Murmurs Abdomen: Present: Normal Bowel Sounds. No: Tenderness, Distention, Peritoneal Signs Back: Present: Normal Inspection Upper Extremity: Present: Normal Inspection. No: Cyanosis, Edema Lower Extremity: Present: Normal Inspection. No: Edema Neurological: Present: GCS=15, CN II-XII Intact, Speech Normal Skin: Present: Warm, Dry, Normal Color. No: Rashes Psychiatric: Present: Alert, Oriented x 3, Normal Insight, Normal Concentration Medical Decision Making ED Course and Treatment: 08/05/16 22:00 Impression: A 71 year old female with abdominal pain. Differential Diagnosis included but are not limited to: Plan: -- EKG -- CT abd/pelvis -- labs -- Urinalysis -- Reassess and disposition Prior Visits: Notes and results from previous visits were reviewed. Patient last reported to the emergency department on 07/12/16 for evaluation of abdominal and chest pain. Patient admitted to telemetry under Dr. Quinteros's service. Patient was discharged on 07/17/16. case d/w dr lulu martin dc , pt ate numerous sandwich in ed without bad outcome 08/06/16 06:53 Re-evaluation Time: 06:22 Reassessment Condition: Re-examined, Improved - Lab Interpretations Lab Results: 08/05/16 20:20 08/05/16 20:20 Lab Results 08/05/16 20:20: pO2 35, VBG pH 7.32, VBG pCO2 64.0 H, VBG HCO3 33.0 H, VBG Total CO2 35.0 H, VBG O2 Sat (Calc) 63.8, VBG Base Excess 4.9 H, VBG Potassium 5.0, Sodium 137.0, Chloride 101.0, Glucose 94, Lactate 2.6 H, FiO2 21.0, Venous Blood Potassium 5.0 08/05/16 20:20: Sodium 136, Chloride 100, Potassium 5.3 H, Carbon Dioxide 30, Anion Gap 11, BUN 21, Creatinine 0.8, Est GFR ( Amer) > 60, Est GFR (Non- Af Amer) > 60, Random Glucose 84, Calcium 8.3 L, Total Bilirubin 1.2, AST 32, ALT 19, Alkaline Phosphatase 141 H, Lactate Dehydrogenase 1143 H, Total Creatine Kinase 61, Troponin I 0.02 D, Total Protein 7.2, Albumin 3.3, Globulin 3.9, Albumin/Globulin Ratio 0.8 L, Amylase < 30 L, Lipase 28 08/05/16 20:20: PT 28.1 H, INR 2.60 H, APTT 29.3 08/05/16 20:20: WBC 3.9 L, RBC 4.98, Hgb 13.4, Hct 44.1, MCV 88.6, MCH 26.9, MCHC 30.4 L, RDW 18.3 H, Plt Count 145, MPV 11.3 H, Gran % 78.4 H, Lymph % (Auto ) 12.6 L, [place] % (Auto) 7.7 H, Eos % (Auto) 0.8 L, Baso % (Auto) 0.5, Gran # 3.04, Lymph # 0.5 L, [place] # 0.3, Eos # 0.0, Baso # 0.02 I have reviewed the lab results: Yes - RAD Interpretation Radiology Orders: 08/05/16 20:11 ABD & PELVIS W/O PO OR IV CONT [CT] Stat - EKG Interpretation Interpreted by ED Physician: Yes Type: 12 lead EKG ED OBSERVATION Discharge: Yes Date of observation admission: 08/05/16 Time of observation admission: 22:00 - Observation admission statement Patient is being placed in observation because:: abdominal pain - Goals of Observation Goals of observation are:: monitor patient symptoms - Progress Note Progress Note: 08/06/16 00:00 Patient is in no acute distress. EKG: Ordered, reviewed, and independently interpreted the EKG. Rate : 83 BPM Rhythm : NSR Interpretation : No ST-segment elevations or depressions, no T-wave inversions, normal intervals. Comparison : No previous EKG for comparison. CT Abdomen and Pelvis Without Intravenous Contrast IMPRESSION: Continued large volume ascites; probable cirrhosis; cardiomegaly and atherosclerotic disease; infrarenal abdominal aortic aneurysm; decreasing size of left rectus hematoma Additional findings as described above. Dictated and Authenticated by: Korin Chin MD 08/05/2016 11:45 PM Eastern Time ([place] & Jan) 08/06/16 00:[address] Valdez, who wants to discharged patient home. 08/06/16 02:00 Patient is resting comfortably. 08/06/16 04:00 Patient in no acute distress, sleeping. - Scribe Statement The provider has reviewed the documentation as recorded by the Javier Matthews Provider Scribe Attestation: All medical record entries made by the Scribe were at my direction and personally dictated by me. I have reviewed the chart and agree that the record accurately reflects my personal performance of the history, physical exam, medical decision making, and the department course for this patient. I have also personally directed, reviewed, and agree with the discharge instructions and disposition. Disposition/Present on Arrival - Present on Arrival Any Indicators Present on Arrival: No History of DVT/PE: No History of Uncontrolled Diabetes: No Urinary Catheter: No History of Decub. Ulcer: No History Surgical Site Infection Following: None - Disposition Have Diagnosis and Disposition been Completed?: Yes Diagnosis: Abdominal pain Disposition: HOME/ ROUTINE Disposition Time: 06:22 Condition: GOOD
--- NOTE | 2016-08-05 23:46 | CT ---
EXAM: CT Abdomen and Pelvis Without Intravenous Contrast CLINICAL HISTORY: 71 years old, female; Pain; Abdominal pain; Acute; Additional info: Abd pain TECHNIQUE: Axial computed tomography images of the abdomen and pelvis without intravenous contrast. This CT exam was performed using one or more of the following dose reduction techniques: automated exposure control, adjustment of the mA and/or kV according to patient size, and/or use of iterative reconstruction technique. EXAM DATE/TIME: 08/05/2016 8:11 PM COMPARISON: CT - ABD PELVIS W/O PO OR IV CONT 07/12/2016 3:48:08 AM FINDINGS: Limitations: Left intravenous contrast limits evaluation of solid viscera Lower thorax: The heart is enlarged.There is streak artifact from pacemaker leads. There is elevation of the right diaphragm. There is scarring at the lung bases. There are atelectatic changes at the right base. ABDOMEN: Liver: Hepatic contours are nodular. Gallbladder and bile ducts: unremarkable Pancreas: Pancreas is atrophic. Spleen: unremarkable Adrenals: There is adrenal thickening left greater than right. Kidneys and ureters: Kidneys and ureters are unremarkable. Stomach and bowel: Stomach is almost empty. Rotation is normal. There is mild small bowel wall thickening. There is no obstruction. Terminal ileum is unremarkable.Appendix is not visualized.Colon is incompletely distended which limits evaluation.There is diverticulosis. There postsurgical changes in the sigmoid Appendix: See stomach and bowel PELVIS: Bladder: unremarkable Reproductive: Uterus is atrophic. There are no adnexal masses. ABDOMEN and PELVIS: Intraperitoneal space: There is a large amount of ascites.There is no free air. Bones/joints: There are postsurgical changes of median sternotomy. Bony structures are osteopenic.There are degenerative changes in the osseus structures. Soft tissues: There has been interval decrease in the size of the left rectus mass/hematoma. There is body wall edema. There postsurgical changes of hernia repair. Vasculature: Vascular calcification There is infrarenal abdominal aortic aneurysm 3.4 cm in diameter, unchanged Lymph nodes: unremarkable IMPRESSION: Continued large volume ascites; probable cirrhosis; cardiomegaly and atherosclerotic disease; infrarenal abdominal aortic aneurysm; decreasing size of left rectus hematoma Additional findings as described above.
[2016-08-06 07:35] VITALS: BP 118/73; PULSE 70; TEMP 98; O2SAT 98
--- NOTE | 2016-08-06 20:15 | CARD ---
APPROVED REPORT EKG Measurement Heart [id number] <Conclusion> Electronic ventricular pacemaker
== END 2016-08-06 06:23 | disposition home or self-care (01) ==
LOC: ED 19:41 → EROBSV 22:00
PROVIDERS: ADMIT Emergency Medicine; ATTEND Emergency Medicine
DX: R10.9 Unspecified abdominal pain (principal); I25.10 Atherosclerotic heart disease of native coronary artery without angina pectoris; I11.0 Hypertensive heart disease with heart failure; I50.9 Heart failure, unspecified; E11.9 Type 2 diabetes mellitus without complications; Z72.0 Tobacco use
CPT/HCPCS: 74176; 80053; 82150; 82550; 82803; 83615; 83690; 84484; 85025; 85610; 85730; 87040; 93005; 99285; G0378

== ENCOUNTER 2016-08-13 12:15 | Inpatient (IN) | payer MEDICARE ==
--- NOTE | 2016-08-13 12:40 | ED PDOC ---
Arrival/HPI - General Time Seen by Provider: 08/13/16 12:17 Historian: Patient, EMS - History of Present Illness Narrative History of Present Illness (Text): 08/13/16 12:37 71 year old female whose past medical history includes CAD/CABG, CHF, pacemaker , diabetes, atrial fibrillation, and ascities presents to the emergency department with 1 week duration of abdominal pain associated with some shortness of breath and flank pain. No nausea or vomiting. According to EMS, rai stated she has not been taking care of herself and not taking her medications. Patient's legs appear to be purplish and cyanotic bilaterally. As per EMS, rai states the legs have been like this for at least a week. Patient denies leg pain. Patient is a poor historian. PMD: Dr. Garcia Valdez Time/Duration: > week Symptom Onset: Gradual Symptom Course: Unchanged Context: Home Past Medical History - Provider Review Nursing Documentation Reviewed: Yes - Infectious Disease Hx of Infectious Diseases: None - Tetanus Immunization Tetanus Immunization: Unknown - Cardiac Hx Cardiac Disorders: Yes (ND , CAD) Hx Congestive Heart Failure: Yes Hx Hypertension: Yes Other/Comment: poor circulation noted to nose, fingertips and toes. Pt reports hx of raynauds - Pulmonary Hx Chronic Obstructive Pulmonary Disease (COPD): Yes - Neurological Hx Neurological Disorder: Yes Hx Transient Ischemic Attacks (TIA): Yes - HEENT Hx HEENT Disorder: Yes Hx Deafness: Yes - Renal Hx Renal Disorder: No - Endocrine/Metabolic Hx Diabetes Mellitus Type 2: Yes - Hematological/Oncological Hx Blood Disorders: Yes Hx Cancer: Yes - Integumentary Hx Dermatological Disorder: No - Musculoskeletal/Rheumatological Hx Falls: Yes - Gastrointestinal Hx Gastrointestinal Disorders: Yes Hx Liver Failure: Yes Other/Comment: history of ascites/ paracenthesis done in the past - Genitourinary/Gynecological Hx Genitourinary Disorders: Yes Hx Incontinence: Yes - Psychiatric Hx Psychophysiologic Disorder: Yes Hx Anxiety: Yes Hx Depression: Yes Hx Substance Use: No - Surgical History Hx Appendectomy: Yes Hx Cholecystectomy: Yes Hx Open Heart Surgery: Yes Hx Orthopedic Surgery: Yes (laminectomy) Other/Comment: Herniated disc repair, partial colectomy, tonsilectomy - Anesthesia Hx Anesthesia: No - Suicidal Assessment Feels Threatened In Home Enviroment: No Family/Social History - Physician Review Nursing Documentation Reviewed: Yes Family/Social History: Unknown Family HX Smoking Status: Former Smoker Hx Alcohol Use: No Hx Substance Use: No Hx Substance Use Treatment: No Allergies/Home Meds Allergies/Adverse Reactions: Allergies adhesive tape Allergy (Verified 08/13/16 12:44) REDNESS naproxen Allergy (Verified 08/13/16 12:44) VOMITING ciprofloxacin Adverse Reaction (Verified 08/13/16 12:44) ANAPHYLAXIS Home Medications: Home Meds Medication Instructions Recorded Confirmed Simvastatin 20 mg PO DAILY 04/25/16 08/13/16 DiphenhydrAMINE [Benadryl] 2 tab PO HS 06/08/16 08/13/16 Review of Systems - Physician Review All systems were reviewed & negative as marked: Yes - Review of Systems Constitutional: absent: Fevers Eyes: absent: Vision Changes ENT: absent: Hearing Changes Respiratory: SOB. absent: Cough Cardiovascular: absent: Chest Pain, Calf Pain Gastrointestinal: Abdominal Pain. absent: Nausea, Vomiting Genitourinary Female: absent: Dysuria, Frequency, Hematuria Musculoskeletal: Other (Flank pain) Skin: Other (Lower extremities cyanotic bilaterally) Neurological: absent: Headache Physical Exam Vital Signs Reviewed: Yes Vital Signs Temp Pulse Resp BP Pulse Ox 08/13/16 14:44 116/79 08/13/16 14:16 98 H 18 116/79 100 08/13/16 12:30 98.2 F 76 20 130/73 98 Temperature: Afebrile Blood Pressure: Normal Pulse: Regular Respiratory Rate: Normal Appearance: Positive for: Ill-Appearing Pain Distress: Mild Mental Status: Positive for: Alert and Oriented X 3 - Systems Exam Head: Present: Atraumatic, Normocephalic Pupils: Present: PERRL Conjunctiva: Present: Normal Mouth: Present: Moist Mucous Membranes Pharnyx: Present: Normal. No: ERYTHEMA, EXUDATE Neck: Present: Normal Range of Motion, JVD (Mild) Respiratory/Chest: Present: Decreased Breath Sounds (at the bases). No: Respiratory Distress, Accessory Muscle Use Cardiovascular: Present: Regular Rate and Rhythm, Normal S1, S2. No: Murmurs Abdomen: Present: Distention, Normal Bowel Sounds. No: Tenderness, Peritoneal Signs Back: Present: Normal Inspection Upper Extremity: Present: Cyanosis (in the hands b/L). No: Edema Lower Extremity: Present: Edema (2+ bilaterally), Cyanosis (bilaterally), Temperature Abnormalties (Cold) Neurological: Present: GCS=15, CN II-XII Intact, Speech Normal Skin: Present: Dry, Cold, Pale. No: Rashes Psychiatric: Present: Oriented x 3 Medical Decision Making ED Course and Treatment: Impression: 71 year old female whose past medical history includes CAD/CABG, CHF , pacemaker, diabetes, atrial fibrillation, and ascities presents to the emergency department with 1 week duration of abdominal pain associated with some shortness of breath and left flank pain. Differential Diagnosis include but are not limited to: CHF, increased ascites vs sepsis vs DIC vs embolic disease Plan: -- Labs -- Reassess and disposition Prior Visits: Notes and results from previous visits were reviewed. Patient last seen in ED on 08/05/16 for abdominal pain and discharged home. Progress Notes: 08/13/16 14:[address] Leonard who states to get ABIEL's 08/13/16 15:23 Patient with noted history. O2 sat drops down intermittently to near 60%, but the patient does not appear to be in sob when it occurs, and at other times it is normal at 100% on room air. ABG obtained showing normal p02. EKG is unchanged. CXR shows potential ptx, so will obtain CT chest. Abdomen is nontender. Patient just had a CT of a/p done about a week ago with ascites and an infrarenal abdominal aneurysm. Abdominal pain is likely due to ascites buildup due to CHF. BNP is >6000; will give lasix. Patient's extremities, particularly lower extremities appear to be mottled and cyanotic and cool; she has a dopplerable DP pulse on the right. The left does not have a dopplerable DP pulse or palpable popliteal. She does have b/L palpable femoral pulses. Spoke with Dr. Yaw Leonard, who recommended ABIs on the patient. Results are still pending; they will be followed by Dr. Leonard and Dr. Valdez. Patient will need to be admitted given the tense ascites and CHF for diuresis and likely paracentesis as well as workup for the potential ischemia in the extremities. Patient's INR is therapeutic, and per Dr. Valdez, they have appeared cyanotic in the past, likely due to the low flow state due to CHF. 08/13/16 15:32 Urine shows UTI, but Dr. Valdez said to hold on abx, as the patient has no leukocytosis or fever, and it may be due to asymptomatic bacteriuria. Cultures will be followed by Dr. Valdez. - Lab Interpretations Lab Results: 08/13/16 12:38 08/13/16 12:38 Lab Results 08/13/16 13:50: pCO2 37, pO2 85.0, HCO3 24.0, ABG pH 7.42, ABG Total CO2 25.1, ABG O2 Saturation 97.8, ABG O2 Content 16.3, ABG Base Excess -0.2, ABG Hemoglobin 12.2, ABG Carboxyhemoglobin 2.8 H, POC ABG HHb (Measured) 2.1, ABG Methemoglobin 0.6, ABG O2 Capacity 16.7, Hgb O2 Saturation 94.5 L, FiO2 21.0 08/13/16 13:02: Urine Color Yellow, Urine Appearance Sl cloudy, Urine pH 6.0, Ur Specific [place] >= 1.030, Urine Protein 30 H, Urine Glucose (UA) Negative, Urine Ketones Negative, Urine Blood Small H, Urine Nitrate Positive H, Urine Bilirubin Small H, Urine Urobilinogen 1.0 H, Ur Leukocyte Esterase Moderate H, Urine RBC 0 - 2, Urine WBC Tntc, Ur Epithelial Cells 1 - 3, Urine Bacteria Many 08/13/16 12:38: Sodium 137, Chloride 102, Potassium 4.7, Carbon Dioxide 29, Anion Gap 11, BUN 23 H, Creatinine 0.7, Est GFR ( Amer) > 60, Est GFR ( Non-Af Amer) > 60, Random Glucose 179 H, Calcium 8.3 L, Magnesium 1.9, Total Bilirubin 1.0, Direct Bilirubin 0.5 H, AST 26, ALT 19, Alkaline Phosphatase 143 H, Lactate Dehydrogenase 659, Total Creatine Kinase 56, Troponin I < 0.01 D, NT -Pro-B Natriuret Pep 6230 H, Total Protein 7.1, Albumin 3.1, Globulin 4.0, Albumin/Globulin Ratio 0.8 L, Lipase 26 08/13/16 12:38: pO2 35, VBG pH 7.33, VBG pCO2 60.0, VBG HCO3 31.6 H, VBG Total CO2 33.4 H, VBG O2 Sat (Calc) 66.1 H, VBG Base Excess 4.0 H, VBG Potassium 4.8, Sodium 136.0, Chloride 105.0, Glucose 185 H, Lactate 1.4, FiO2 21.0, Venous Blood Potassium 4.8 08/13/16 12:38: PT 31.0 H*, INR 2.87 H, APTT 43.1 H 08/13/16 12:38: WBC 3.5 L, RBC 4.79, Hgb 12.8, Hct 41.8, MCV 87.3, MCH 26.7, MCHC 30.6 L, RDW 18.3 H, Plt Count 163, MPV 10.9, Gran % 80.7 H, Lymph % (Auto) 11.9 L, [place] % (Auto) 6.5 H, Eos % (Auto) 0.6 L, Baso % (Auto) 0.3, Gran # 2.86 , Lymph # 0.4 L, [place] # 0.2, Eos # 0.0, Baso # 0.01 - RAD Interpretation Radiology Orders: 08/13/16 12:39 CHEST PORTABLE [RAD] Stat 08/13/16 14:05 LOWER EXT ART NON-INV COMPL [US] Stat 08/13/16 14:50 CHEST W/O CONTRAST [CT] Stat - EKG Interpretation EKG Interpretation (Text): EKG shows paced rhythm at ventricular rate of 86 BPM with PVC's, left bundle branch pattern, no significant changes compared with 08/05/16. Interpreted by me. Interpreted by ED Physician: Yes Type: 12 lead EKG - Medication Orders Current Medication Orders: Discontinued Medications Furosemide (Lasix) 40 mg IVP STAT STA Stop: 08/13/16 14:32 Last Admin: 08/13/16 14:44 Dose: 40 mg Ceftriaxone Sodium (Rocephin 1 Gram Ivpb) 1 g in 100 mls @ 200 mls/hr IV ONCE STA PRN Reason: Protocol Stop: 08/13/16 14:42 Last Admin: 08/13/16 14:23 Dose: 200 mls/hr - Scribe Statement The provider has reviewed the documentation as recorded by the Javier Monroe Provider Scribe Attestation: All medical record entries made by the Adeleibjovanny were at my direction and personally dictated by me. I have reviewed the chart and agree that the record accurately reflects my personal performance of the history, physical exam, medical decision making, and the department course for this patient. I have also personally directed, reviewed, and agree with the discharge instructions and disposition. Disposition/Present on Arrival - Present on Arrival Any Indicators Present on Arrival: No History of DVT/PE: No History of Uncontrolled Diabetes: No Urinary Catheter: No History Surgical Site Infection Following: None - Disposition Have Diagnosis and Disposition been Completed?: Yes Diagnosis: CHF (congestive heart failure), Abdominal pain, Ascites Disposition: HOSPITALIZED Disposition Time: 14:50 Patient Plan: Admission, Telemetry Patient Problems: Current Active Problems Problem Status Onset Abdominal pain Acute Ascites Acute CHF (congestive heart failure) Acute Condition: FAIR
[2016-08-13 12:56] LABS: VENOUS BLOOD GAS PO2 35 mm/Hg (30-55); VENOUS BLOOD PH 7.33 (7.32-7.43)
[2016-08-13 13:05] LABS: ALB/GLOB RATIO 0.8 (1.1-1.8); ALBUMIN 3.1 g/dL (3.0-4.8); ALT/SGPT 19 U/L (7-56); AST/SGOT 26 U/L (15-39); BILIRUBIN,DIRECT 0.5 mg/dL (0.0-0.4); BLOOD UREA NITROGEN 23 mg/dL (7-21); CALCIUM 8.3 mg/dL (8.4-10.5); GFR AFRICAN-AMERICAN > 60; GFR NON-AFRICAN AMERICAN > 60; LIPASE 26 U/L (23-300); MAGNESIUM 1.9 mg/dL (1.7-2.2)
[2016-08-13 13:17] LABS: B-TYPE NATRIURETIC PEPTIDE 6230 pg/mL (0-450); TROPONIN I < 0.01 ng/mL
[2016-08-13 13:29] LABS: BASO # 0.01 K/mm3 (0.0-2.0); BASO % 0.3 % (0.0-3.0); EOS % 0.6 % (1.5-5.0); GRAN # 2.86 (1.4-6.5); GRAN % 80.7 % (50.0-68.0); HEMOGLOBIN 12.8 gm/dL (12.0-16.0); LYMPH # 0.4 (1.2-3.4); LYMPH % 11.9 % (22.0-35.0); MEAN CELL VOLUME 87.3 fL (80.0-105.0); MEAN CORPUSCULAR HEMOGLOBIN 26.7 pg (25.0-35.0); MEAN CORPUSCULAR HGB CONC 30.6 g/dl (31.0-37.0); MEAN PLATELET VOLUME 10.9 fl (7.0-11.0); MONO # 0.2 (0.1-0.6); MONO % 6.5 % (1.0-6.0); PLATELET COUNT 163 10^3/uL (120.0-450.0); RBC 4.79 10^6/uL (3.5-6.1); RED CELL DISTRIBUTION WIDTH 18.3 % (11.5-14.5); WHITE BLOOD COUNT 3.5 10^3/ul (4.5-11.0)
[2016-08-13 13:31] LABS: URINE APPEARANCE SL CLOUDY (CLEAR); URINE BILIRUBIN SMALL (NEGATIVE); URINE BLOOD SMALL (NEGATIVE); URINE COLOR YELLOW (YELLOW); URINE GLUCOSE (UA) NEGATIVE (NEGATIVE); URINE LEUKOCYTE ESTERASE MODERATE Leu/uL (NEGATIVE); URINE NITRATE POSITIVE (NEGATIVE); URINE PROTEIN 30 mg/dL (<30 mg/dL)
[2016-08-13 13:35] LABS: INR 2.87 (0.93-1.08); PARTIAL THROMBOPLASTIN TIME 43.1 Seconds (23.7-30.8)
[2016-08-13 13:55] LABS: ARTERIAL BLOOD GAS HEMOGLOBIN 12.2 g/dL (11.7-17.4); ARTERIAL BLOOD GAS O2 CAPACITY 16.7 mL/dl (16-24); ARTERIAL BLOOD GAS O2 CONTENT 16.3 ML/dl (15-23); ARTERIAL BLOOD GAS O2 SAT 97.8 % (95-98); ARTERIAL BLOOD GAS PCO2 37 mm/Hg (35-45); ARTERIAL BLOOD GAS TCO2 25.1 mmol.L (22-28)
[2016-08-13 13:57] LABS: ARTERIAL BLOOD GAS PH 7.42 (7.35-7.45)
[2016-08-13 14:06] LABS: URINE RBC 0 - 2 /hpf (0-2); URINE WBC TNTC /hpf (0-6)
[2016-08-13 14:07] LABS: URINE BACTERIA MANY (NEG)
[2016-08-13] MEDS ORDERED: cefTRIAXone 1 gm 1 G/100 ML BAG IV STA (14:13)
--- NOTE | 2016-08-13 14:45 | RAD ---
HISTORY: sob COMPARISON: 07/12/2016 FINDINGS: LUNGS: There is a possible pneumothorax in the left lower lobe. It is possible this represents a skin fold. There are no lung markings seen beyond this edge. The area is partially obscured by overlying instruments and a left-sided pacemaker. A repeat inspiratory and expiratory chest film or a nonenhanced CT is recommended for further evaluation The findings were discussed with Dr. Corona at 2:40 p.m. PLEURA: As above CARDIOVASCULAR: Moderate cardiomegaly. Dual lead pacemaker. Sternal wires OSSEOUS STRUCTURES: No significant abnormalities. VISUALIZED UPPER ABDOMEN: Normal. OTHER FINDINGS: None. IMPRESSION: Possible pneumothorax at left lung base. See comments
--- NOTE | 2016-08-13 16:24 | US ---
PROCEDURE: Lower extremity ABIEL exam HISTORY: Peripheral vascular disease with pain and claudication. PHYSICIAN(S): Yaw Leonard MD. FINDINGS: The PVR waveforms are limited by artifact The resting ABIEL's are normal: right, 1.01and left, 0.98. The brachial systolic pressures are symmetric. The high thigh pressures and waveforms are unremarkable The left calf PVR waveform augments normally. The right calf PVR waveform is pulsatile but does not augment. This could represent subtle right SFA disease. The ankle and metatarsal waveforms are symmetric and pulsatile. IMPRESSION: 1. Normal ABIEL at rest 2. Pulsatile waveforms at all levels. The PVR waveforms are limited by artifact. 3. Possible right SFA occlusive disease.
--- NOTE | 2016-08-13 16:29 | CT ---
PROCEDURE: CT Chest without contrast HISTORY: possible pneumothorax on CT chest - r/o PTX COMPARISON: Earlier chest x-ray TECHNIQUE: Contiguous axial images were obtained through the chest without intravenous contrast enhancement. Sagittal and coronal reconstructions were performed. Radiation dose (DLP): 294 mGy-cm. This CT exam was performed using one or more of the following dose reduction techniques: Automated exposure control, adjustment of the mA and/or kV according to patient size, and/or use of iterative reconstruction technique. FINDINGS: LUNGS: There is no evidence of pneumothorax in the left lung. The finding on chest x-ray represented a skin fold. There is a patchy infiltrate at the right lung base which could also be seen on the previous abdominal CT dated 08/05/2016. There is also a bulla at the right lung base. MEDIASTINUM: Unremarkable thoracic aorta. No aneurysm. There is moderate to severe cardiomegaly. Main pulmonary artery unremarkable. No vascular congestion. No lymphadenopathy. PLEURA: No pleural fluid. No pneumothorax. BONES: No fracture. No destructive lesion. UPPER ABDOMEN: Grossly unremarkable. OTHER FINDINGS: None. IMPRESSION: No evidence of pneumothorax. Patchy infiltrate at the right lung base
[2016-08-13] MEDS ORDERED: DOBUTamine 500mg/250ml D5W 500 MG/250 ML BAG IV PRN (17:27)
[2016-08-13] MEDS ORDERED: Digoxin 250 mcg (0.25 mg) Tab PO STA (18:12)
[2016-08-13 18:26] VITALS: BMI 24.6
[2016-08-13] MEDS ORDERED: Pneumococcal 23-Valent Vaccine IM ONE (18:26)
[2016-08-13] MEDS: DOBUTamine 500mg/250ml D5W 500 MG/250 ML BAG IV PRN (19:00)
[2016-08-13] MEDS ORDERED: Oxycodone/Acetaminophen 5/325 mg Tab PO STA (23:14)
--- NOTE | 2016-08-13 23:29 | CP.PCM.PN ---
Subjective - Date & Time of Evaluation Date of Evaluation: 08/13/16 Time of Evaluation: 23:28 - Subjective Subjective: S: Patient was seen at bedside. Complained of both legs pain , more in left than right. Has no other complaints. Pertinent medical record was reviewed. O: Last Vital Signs 3 97.8 F 08/14/16 00:00 87 08/14/16 00:00 19 08/14/16 00:00 136/66 08/14/16 00:00 99 08/13/16 16:00 Awake, alert, not in distress. LUNGS: Normal breathing pattern. EXT:Both leg redness and swelling present L> R. A:Cellulitis lower extremities? P:Percocet 5/325 i po stat. Objective - Vital Signs/Intake and Output Vital Signs (last 24 hours): Temp Pulse Resp BP Pulse Ox 98.2 F 65 18 129/76 99 08/13/16 17:58 08/13/16 17:58 08/13/16 17:58 08/13/16 21:10 08/13/16 16:00 - Medications Medications: Current Medications Albuterol/Ipratropium (Duoneb 3 Mg/0.5 Mg (3 Ml) Ud) 3 ml IH [id number] [facility] Atorvastatin Calcium (Lipitor) 10 mg PO DIN [facility] Last Admin: 08/13/16 18:24 Dose: 10 mg Digoxin (Lanoxin) 0.25 mg PO 1400 [facility] Diphenhydramine HCl (Benadryl) 50 mg PO HS PRN PRN Reason: Insomnia Furosemide (Lasix) 80 mg IVP Q12 [facility] Last Admin: 08/13/16 21:10 Dose: 80 mg Dobutamine HCl/Dextrose (Dobutamine/Dextrose 5% 500mg/250ml) 500 mg in 250 mls @ 9.457 mls/hr IV .Q24H PRN; Protocol; 5 MCG/KG/MIN PRN Reason: TITRATE PER PROTOCOL Last Admin: 08/13/16 19:00 Dose: 9.457 mls/hr Warfarin Sodium (Coumadin) 3 mg PO 1800 [facility] PRN Reason: Protocol Last Admin: 08/13/16 18:24 Dose: 3 mg - Labs Labs: PT 31.0 Seconds (9.9-11.8) H* 08/13/16 12:38 INR 2.87 (0.93-1.08) H 08/13/16 12:38 APTT 43.1 Seconds (23.7-30.8) H 08/13/16 12:38
[2016-08-14] MEDS: Albuterol-Ipratrop 3 mg / 0.5 (3 ml) UD IH SCH ×5 (01:34→20:30)
--- NOTE | 2016-08-14 09:13 | CARD ---
APPROVED REPORT EKG Measurement Heart [id number] <Conclusion> Electronic ventricular pacemaker: AFib with intermittent V. Pacing.
--- NOTE | 2016-08-14 11:21 | CP.PCM.HP ---
History of Present Illness - History of Present Illness History of Present Illness: 71 yo female with recurrent admissions for CHF, admitted thru ER to telemetry for further eval and mgmy, increasing abdominal distention and SOB, No chest pain, no nausea/vomiting, no diaphoresis. Present on Admission - Present on Admission Any Indicators Present on Admission: No Past Patient History - Infectious Disease Hx of Infectious Diseases: None - Tetanus Immunizations Tetanus Immunization: Unknown - Past Social History Smoking Status: Former Smoker - CARDIAC Hx Cardiac Disorders: Yes ([place] , CAD) Hx Congestive Heart Failure: Yes Hx Hypertension: Yes Other/Comment: poor circulation noted to nose, fingertips and toes. Pt reports hx of raynauds - PULMONARY Hx Respiratory Disorders: Yes (SMOKES CIGARETES) Hx Chronic Obstructive Pulmonary Disease (COPD): Yes - NEUROLOGICAL Hx Neurological Disorder: Yes Hx Transient Ischemic Attacks (TIA): Yes - HEENT Hx HEENT Problems: Yes Hx Deafness: Yes - RENAL Hx Chronic Kidney Disease: No - ENDOCRINE/METABOLIC Hx Endocrine Disorders: Yes Hx Diabetes Mellitus Type 2: Yes - HEMATOLOGICAL/ONCOLOGICAL Hx Blood Disorders: Yes Hx Cancer: Yes - INTEGUMENTARY Hx Dermatological Problems: Yes (HAS RAYNAUDS' DSE) Other/Comment: MOTTLED LEGS AND ARMS.PT. ON COUMADIN. 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 - MUSCULOSKELETAL/RHEUMATOLOGICAL Hx Musculoskeletal Disorders: Yes Hx Falls: Yes Hx Fractures: Yes (METATARSAL FX) Hx Herniated Disk: Yes Hx Unsteady Gait: Yes - GASTROINTESTINAL Hx Gastrointestinal Disorders: Yes (ENTEROCOLITIS,COLECTOMY,TONSILLECTOMY) Hx Gall Bladder Disease: Yes (CHOLEYCYSTECTOMY) Hx Liver Failure: Yes Other/Comment: history of ascites/ paracenthesis done in the past - GENITOURINARY/GYNECOLOGICAL Hx Genitourinary Disorders: Yes Hx Incontinence: Yes - PSYCHIATRIC Hx Psychophysiologic Disorder: Yes Hx Anxiety: Yes Hx Depression: Yes Hx Substance Use: No - SURGICAL HISTORY Hx Surgeries: Yes Hx Appendectomy: Yes Hx Cholecystectomy: Yes Hx Coronary Stent: Yes (X3) Hx Open Heart Surgery: Yes Hx Orthopedic Surgery: Yes (laminectomy) Other/Comment: Herniated disc repair, partial colectomy, tonsilectomy - ANESTHESIA Hx Anesthesia: No Meds Allergies/Adverse Reactions: Allergies Allergy/AdvReac Type Severity Reaction Status Date / Time adhesive tape Allergy REDNESS Verified 08/13/16 17:17 naproxen Allergy VOMITING Verified 08/13/16 17:17 ciprofloxacin AdvReac ANAPHYLAXIS Verified 08/13/16 17:17 Results - Vital Signs Recent Vital Signs: Last Vital Signs Temp 97.9 F 08/14/16 06:00 Pulse 91 H 08/14/16 06:00 Resp 19 08/14/16 06:00 BP 116/73 08/14/16 09:01 Pulse Ox 91 L 08/14/16 06:00 - Labs Result Diagrams: 08/13/16 12:38 08/13/16 12:38 Labs: Laboratory Results - last 24 hr 08/13/16 08/14/16 21:32 07:35 POC Glucose (mg/dL) 124 H 89 Assessment & Plan - Date & Time Date: 08/14/16 Time: 11:00
--- NOTE | 2016-08-14 13:15 | CP.PCM.CON ---
History of Present Illness - History of Present Illness History of Present Illness: 71 year old female whose past medical history includes CAD/CABG, CHF, Biv./ICD pacemaker, diabetes, atrial fibrillation, and ascities presents to the emergency department with 1 week duration of abdominal pain associated with some shortness of breath and flank pain. Patient was not taking her meds as per family . Patient's legs appear to be purplish and cyanotic bilaterally. As per EMS, grandson states the legs have been like this for at least a week. Patient denies leg pain. Past Patient History - Infectious Disease Hx of Infectious Diseases: None - Tetanus Immunizations Tetanus Immunization: Unknown - Past Social History Smoking Status: Former Smoker - CARDIAC Hx Cardiac Disorders: Yes ([place] , CAD) Hx Congestive Heart Failure: Yes Hx Hypertension: Yes Other/Comment: poor circulation noted to nose, fingertips and toes. Pt reports hx of raynauds - PULMONARY Hx Respiratory Disorders: Yes (SMOKES CIGARETES) Hx Chronic Obstructive Pulmonary Disease (COPD): Yes - NEUROLOGICAL Hx Neurological Disorder: Yes Hx Transient Ischemic Attacks (TIA): Yes - HEENT Hx HEENT Problems: Yes Hx Deafness: Yes - RENAL Hx Chronic Kidney Disease: No - ENDOCRINE/METABOLIC Hx Endocrine Disorders: Yes Hx Diabetes Mellitus Type 2: Yes - HEMATOLOGICAL/ONCOLOGICAL Hx Blood Disorders: Yes Hx Cancer: Yes - INTEGUMENTARY Hx Dermatological Problems: Yes (HAS RAYNAUDS' DSE) Other/Comment: MOTTLED LEGS AND ARMS.PT. ON COUMADIN. 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 - MUSCULOSKELETAL/RHEUMATOLOGICAL Hx Musculoskeletal Disorders: Yes Hx Falls: Yes Hx Fractures: Yes (METATARSAL FX) Hx Herniated Disk: Yes Hx Unsteady Gait: Yes - GASTROINTESTINAL Hx Gastrointestinal Disorders: Yes (ENTEROCOLITIS,COLECTOMY,TONSILLECTOMY) Hx Gall Bladder Disease: Yes (CHOLEYCYSTECTOMY) Hx Liver Failure: Yes Other/Comment: history of ascites/ paracenthesis done in the past - GENITOURINARY/GYNECOLOGICAL Hx Genitourinary Disorders: Yes Hx Incontinence: Yes - PSYCHIATRIC Hx Psychophysiologic Disorder: Yes Hx Anxiety: Yes Hx Depression: Yes Hx Substance Use: No - SURGICAL HISTORY Hx Surgeries: Yes Hx Appendectomy: Yes Hx Cholecystectomy: Yes Hx Coronary Stent: Yes (X3) Hx Open Heart Surgery: Yes Hx Orthopedic Surgery: Yes (laminectomy) Other/Comment: Herniated disc repair, partial colectomy, tonsilectomy - ANESTHESIA Hx Anesthesia: No Meds Allergies/Adverse Reactions: Allergies Allergy/AdvReac Type Severity Reaction Status Date / Time adhesive tape Allergy REDNESS Verified 08/13/16 17:17 naproxen Allergy VOMITING Verified 08/13/16 17:17 ciprofloxacin AdvReac ANAPHYLAXIS Verified 08/13/16 17:17 - Medications Medications: Current Medications Albuterol/Ipratropium (Duoneb 3 Mg/0.5 Mg (3 Ml) Ud) 3 ml IH [id number] [facility] Last Admin: 08/14/16 07:31 Dose: 3 ml Atorvastatin Calcium (Lipitor) 10 mg PO DIN [facility] Last Admin: 08/13/16 18:24 Dose: 10 mg Digoxin (Lanoxin) 0.25 mg PO 1400 [facility] Diphenhydramine HCl (Benadryl) 50 mg PO HS PRN PRN Reason: Insomnia Furosemide (Lasix) 80 mg IVP Q12 [facility] Last Admin: 08/14/16 09:01 Dose: 80 mg Dobutamine HCl/Dextrose (Dobutamine/Dextrose 5% 500mg/250ml) 500 mg in 250 mls @ 9.457 mls/hr IV .Q24H PRN; Protocol; 5 MCG/KG/MIN PRN Reason: TITRATE PER PROTOCOL Last Admin: 08/13/16 19:00 Dose: 9.457 mls/hr Warfarin Sodium (Coumadin) 3 mg PO 1800 [facility] PRN Reason: Protocol Last Admin: 08/13/16 18:24 Dose: 3 mg Physical Exam - Constitutional Appears: No Acute Distress - Head Exam Head Exam: NORMAL INSPECTION - Eye Exam Eye Exam: Normal appearance - Neck Exam Neck exam: Positive for: Normal Inspection - Respiratory Exam Respiratory Exam: Rhonchi - Cardiovascular Exam Cardiovascular Exam: Irregular Rhythm - Extremities Exam Extremities exam: Positive for: pedal edema Results - Vital Signs Recent Vital Signs: Last Vital Signs Temp 98.2 F 08/14/16 11:43 Pulse 56 L 08/14/16 11:43 Resp 18 08/14/16 11:43 BP 116/79 08/14/16 11:43 Pulse Ox 91 L 08/14/16 06:00 - Labs Result Diagrams: 08/13/16 12:38 08/13/16 12:38 Labs: Laboratory Results - last 24 hr 08/13/16 08/14/16 08/14/16 21:32 07:35 11:29 POC Glucose (mg/dL) 124 H 89 84 Assessment & Plan - Assessment and Plan (Free Text) Assessment: CHF CAD s/p CABG S/P Biv pacemaker/ ICD Chronic A Fib INR 2.87 Abdominal pain PVD Plan: Cont. Albuterol/Ipratropium (Duoneb 3 Mg/0.5 Mg (3 Ml) Ud) 3 ml IH [id number] [facility] Atorvastatin Calcium (Lipitor) 10 mg PO DIN [facility] Digoxin (Lanoxin) 0.25 mg PO 1400 [facility] Furosemide (Lasix) 80 mg IVP Q12 [facility] Dobutamine ; 5 MCG/KG/MIN Warfarin Sodium (Coumadin) 3 mg PO 1800 [facility] INR 2.87 Digoxin level
[2016-08-14] MEDS: Digoxin 250 mcg (0.25 mg) Tab PO SCH (15:30)
[2016-08-14] MEDS ORDERED: Oxycodone/Acetaminophen 5/325 mg Tab PO STA (21:27)
--- NOTE | 2016-08-14 21:27 | CP.PCM.PN ---
Subjective - Date & Time of Evaluation Date of Evaluation: 08/14/16 Time of Evaluation: 21:27 - Subjective Subjective: S:Patient seen for her complaint of right hip pain. Gives history of arthritis. Denies injury, fall. Has no other complaints. Pertinent medical record was reviewed. O: Last Vital Signs 3 Temp 97.3 F L 08/14/16 16:50 Pulse 107 H 08/14/16 17:30 Resp 18 08/14/16 16:50 BP 117/67 08/14/16 21:53 Pulse Ox 91 L 08/14/16 06:00 Awake, alert,not in distress. LUNGS:Normal breathing pattern. Right HIP : NAD. A:Right hip pain. P:Percocet 5/325 I PO x 1. Objective - Vital Signs/Intake and Output Vital Signs (last 24 hours): Temp Pulse Resp BP Pulse Ox 97.3 F L 107 H 18 111/72 91 L 08/14/16 16:50 08/14/16 17:30 08/14/16 16:50 08/14/16 16:50 08/14/16 06:00 Intake and Output: 08/14/16 08/15/16 18:59 06:59 Intake Total 240 Output Total 600 Balance -360 - Medications Medications: Current Medications Albuterol/Ipratropium (Duoneb 3 Mg/0.5 Mg (3 Ml) Ud) 3 ml IH [id number] [facility] Last Admin: 08/14/16 20:30 Dose: 3 ml Atorvastatin Calcium (Lipitor) 10 mg PO DIN [facility] Last Admin: 08/14/16 17:15 Dose: 10 mg Digoxin (Lanoxin) 0.25 mg PO 1400 [facility] Last Admin: 08/14/16 15:30 Dose: 0.25 mg Diphenhydramine HCl (Benadryl) 50 mg PO HS PRN PRN Reason: Insomnia Furosemide (Lasix) 80 mg IVP Q12 [facility] Last Admin: 08/14/16 09:01 Dose: 80 mg Dobutamine HCl/Dextrose (Dobutamine/Dextrose 5% 500mg/250ml) 500 mg in 250 mls @ 9.457 mls/hr IV .Q24H PRN; Protocol; 5 MCG/KG/MIN PRN Reason: TITRATE PER PROTOCOL Last Admin: 08/13/16 19:00 Dose: 9.457 mls/hr Warfarin Sodium (Coumadin) 3 mg PO 1800 [facility] PRN Reason: Protocol Last Admin: 08/14/16 17:15 Dose: 3 mg - Labs Labs: PT 31.0 Seconds (9.9-11.8) H* 08/13/16 12:38 INR 2.87 (0.93-1.08) H 08/13/16 12:38 APTT 43.1 Seconds (23.7-30.8) H 08/13/16 12:38
[2016-08-15] MEDS: Albuterol-Ipratrop 3 mg / 0.5 (3 ml) UD IH SCH ×4 (02:40→19:48)
--- NOTE | 2016-08-15 10:19 | PQF CHF ---
This form is a permanent part of the medical record Dr. Valdez, Please include type and severity of CHF as part of your documentation for CHF. Clarification of your documentation is requested to better reflect the severity of illness and intensity of treatment of your patient. Indicators present [x] Diagnosis of CHF and/or history of CHF [x] BNP > 200 [] Imaging Finding of Pulmonary Edema /Pleural Effusions [x] Fluid/Volume Overload [] Pitting edema [x] Ejection Fraction < 40% (Indicative of Systolic Heart Failure) [] Ejection Fraction > 40% (Indicative of Diastolic Heart Failure) [x] Dyspnea / Orthopenea / Paroxysmal Nocturnal Dyspnea [] Other: Location in the medical record that reflects the above clinical findings: [] Treatment Provided: [] PHYSICIAN'S RESPONSE Based on your medical judgment of the clinical indicators outlined above, are you treating this patient for a known or suspected: [] Acute CHF [] Systolic [] Diastolic [] Combined [] Chronic CHF [] Systolic [] Diastolic [] Combined [x] Acute on Chronic CHF []Systolic [] Diastolic [x] Combined [] CHF due hypertension [] Acute systolic []Chronic systolic [] Acute/ chronic systolic [] Other, please indicate: [] [] If Unable to Determine, please check the box, sign and date. Present On Admission (POA) Indicator: [x] Present at the time of admission [] Not present at the time of admission [] Clinically Undetermined In responding to this query, please exercise your independent professional judgment. The fact that a question is asked does not imply that any particular answer is desired or expected. Thank you for your clarification on this documentation. If you have any questions please call:[ ] * Thank you, [ ]Jessica Polanco [facility] #[id number] sales operations lead REYNOLD
[2016-08-15] MEDS: Digoxin 250 mcg (0.25 mg) Tab PO SCH (13:52)
--- NOTE | 2016-08-15 16:31 | CP.PCM.PN ---
Subjective - Date & Time of Evaluation Date of Evaluation: 08/15/16 Time of Evaluation: 14:00 - Subjective Subjective: Resting comfortably, no cp, no sob Objective - Vital Signs/Intake and Output Vital Signs (last 24 hours): Temp Pulse Resp BP Pulse Ox 97.8 F 91 H 19 96/48 L 99 08/15/16 12:00 08/15/16 14:00 08/15/16 12:00 08/15/16 12:00 08/15/16 06:00 Intake and Output: 08/15/16 08/15/16 06:59 18:59 Intake Total 120 Output Total 550 Balance -430 - Medications Medications: Current Medications Acetaminophen (Tylenol 325mg Tab) 650 mg PO Q6H PRN PRN Reason: Pain, Mild (1-3) Albuterol/Ipratropium (Duoneb 3 Mg/0.5 Mg (3 Ml) Ud) 3 ml IH [id number] [facility] Last Admin: 08/15/16 13:23 Dose: 3 ml Atorvastatin Calcium (Lipitor) 10 mg PO DIN [facility] Last Admin: 08/14/16 17:15 Dose: 10 mg Digoxin (Lanoxin) 0.25 mg PO 1400 [facility] Last Admin: 08/15/16 13:52 Dose: 0.25 mg Diphenhydramine HCl (Benadryl) 50 mg PO HS PRN PRN Reason: Insomnia Furosemide (Lasix) 80 mg IVP Q12 [facility] Last Admin: 08/15/16 09:10 Dose: 80 mg Dobutamine HCl/Dextrose (Dobutamine/Dextrose 5% 500mg/250ml) 500 mg in 250 mls @ 9.457 mls/hr IV .Q24H PRN; Protocol; 5 MCG/KG/MIN PRN Reason: TITRATE PER PROTOCOL Last Admin: 08/13/16 19:00 Dose: 9.457 mls/hr Warfarin Sodium (Coumadin) 3 mg PO 1800 [facility] PRN Reason: Protocol Last Admin: 08/14/16 17:15 Dose: 3 mg - Labs Labs: PT 31.0 Seconds (9.9-11.8) H* 08/13/16 12:38 INR 2.87 (0.93-1.08) H 08/13/16 12:38 APTT 43.1 Seconds (23.7-30.8) H 08/13/16 12:38 Assessment and Plan (1) Abdominal pain Status: Acute (2) Ascites Status: Acute (3) CHF (congestive heart failure) Status: Acute (4) COPD (chronic obstructive pulmonary disease) Status: Acute (5) Cardiomyopathy Status: Acute
--- NOTE | 2016-08-15 16:50 | CP.PCM.PN ---
Subjective - Date & Time of Evaluation Date of Evaluation: 08/15/16 Time of Evaluation: 09:00 - Subjective Subjective: Feeling Weak, No energy. Objective - Vital Signs/Intake and Output Vital Signs (last 24 hours): Temp Pulse Resp BP Pulse Ox 97.8 F 91 H 19 96/48 L 99 08/15/16 12:00 08/15/16 14:00 08/15/16 12:00 08/15/16 12:00 08/15/16 06:00 Intake and Output: 08/15/16 08/15/16 06:59 18:59 Intake Total 120 Output Total 550 Balance -430 - Medications Medications: Current Medications Acetaminophen (Tylenol 325mg Tab) 650 mg PO Q6H PRN PRN Reason: Pain, Mild (1-3) Albuterol/Ipratropium (Duoneb 3 Mg/0.5 Mg (3 Ml) Ud) 3 ml IH [id number] [facility] Last Admin: 08/15/16 13:23 Dose: 3 ml Atorvastatin Calcium (Lipitor) 10 mg PO DIN [facility] Last Admin: 08/14/16 17:15 Dose: 10 mg Digoxin (Lanoxin) 0.25 mg PO 1400 [facility] Last Admin: 08/15/16 13:52 Dose: 0.25 mg Diphenhydramine HCl (Benadryl) 50 mg PO HS PRN PRN Reason: Insomnia Furosemide (Lasix) 80 mg IVP Q12 [facility] Last Admin: 08/15/16 09:10 Dose: 80 mg Dobutamine HCl/Dextrose (Dobutamine/Dextrose 5% 500mg/250ml) 500 mg in 250 mls @ 9.457 mls/hr IV .Q24H PRN; Protocol; 5 MCG/KG/MIN PRN Reason: TITRATE PER PROTOCOL Last Admin: 08/13/16 19:00 Dose: 9.457 mls/hr Warfarin Sodium (Coumadin) 3 mg PO 1800 [facility] PRN Reason: Protocol Last Admin: 08/14/16 17:15 Dose: 3 mg - Labs Labs: PT 31.0 Seconds (9.9-11.8) H* 08/13/16 12:38 INR 2.87 (0.93-1.08) H 08/13/16 12:38 APTT 43.1 Seconds (23.7-30.8) H 08/13/16 12:38 - Constitutional Appears: Non-toxic - Head Exam Head Exam: ATRAUMATIC - Eye Exam Eye Exam: Conjunctival injection - ENT Exam ENT Exam: Mucous Membranes Dry - Respiratory Exam Respiratory Exam: Clear to Ausculation Bilateral - Cardiovascular Exam Cardiovascular Exam: REGULAR RHYTHM - GI/Abdominal Exam GI & Abdominal Exam: Distended, Soft Assessment and Plan - Assessment and Plan (Free Text) Assessment: 67 year old female with P Mhx of CAD. 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 monitor lytes and INR.
[2016-08-16] MEDS: DOBUTamine 500mg/250ml D5W 500 MG/250 ML BAG IV PRN (01:24)
[2016-08-16] MEDS: Albuterol-Ipratrop 3 mg / 0.5 (3 ml) UD IH SCH ×3 (08:10→20:30)
[2016-08-16] MEDS ORDERED: Insulin Regular 1 UNITS/0.01 ML ML SC ONE (08:27)
--- NOTE | 2016-08-16 10:19 | CP.PCM.PN ---
Subjective - Date & Time of Evaluation Date of Evaluation: 08/16/16 Time of Evaluation: 07:30 - Subjective Subjective: Denies Chest pain, but feels weak Objective - Vital Signs/Intake and Output Vital Signs (last 24 hours): Temp Pulse Resp BP Pulse Ox 97.8 F 77 20 124/70 97 08/16/16 05:58 08/16/16 05:58 08/16/16 05:58 08/16/16 10:11 08/16/16 05:58 Intake and Output: 08/16/16 08/16/16 06:59 18:59 Intake Total 708 Output Total 950 Balance -242 - Medications Medications: Current Medications Acetaminophen (Tylenol 325mg Tab) 650 mg PO Q6H PRN PRN Reason: Pain, Mild (1-3) Last Admin: 08/15/16 21:40 Dose: 650 mg Albuterol/Ipratropium (Duoneb 3 Mg/0.5 Mg (3 Ml) Ud) 3 ml IH [id number] [facility] Last Admin: 08/16/16 08:10 Dose: 3 ml Atorvastatin Calcium (Lipitor) 10 mg PO DIN [facility] Last Admin: 08/15/16 17:03 Dose: 10 mg Digoxin (Lanoxin) 0.25 mg PO 1400 [facility] Last Admin: 08/15/16 13:52 Dose: 0.25 mg Diphenhydramine HCl (Benadryl) 50 mg PO HS PRN PRN Reason: Insomnia Docusate Sodium (Colace) 100 mg PO BID [facility] Furosemide (Lasix) 80 mg IVP Q12 [facility] Last Admin: 08/16/16 10:11 Dose: 80 mg Dobutamine HCl/Dextrose (Dobutamine/Dextrose 5% 500mg/250ml) 500 mg in 250 mls @ 9.457 mls/hr IV .Q24H PRN; Protocol; 5 MCG/KG/MIN PRN Reason: TITRATE PER PROTOCOL Last Admin: 08/16/16 01:24 Dose: 9.457 mls/hr Insulin Human Regular (Humulin R Low) 0 units SC ACHS [facility] PRN Reason: Protocol Warfarin Sodium (Coumadin) 3 mg PO 1800 [facility] PRN Reason: Protocol Last Admin: 08/15/16 17:03 Dose: 3 mg - Labs Labs: PT 31.0 Seconds (9.9-11.8) H* 08/13/16 12:38 INR 2.87 (0.93-1.08) H 08/13/16 12:38 APTT 43.1 Seconds (23.7-30.8) H 08/13/16 12:38 - Constitutional Appears: Non-toxic - Head Exam Head Exam: ATRAUMATIC - Eye Exam Eye Exam: Conjunctival injection - ENT Exam ENT Exam: Mucous Membranes Dry - Neck Exam Neck Exam: Full ROM - Respiratory Exam Respiratory Exam: Clear to Ausculation Bilateral - Cardiovascular Exam Cardiovascular Exam: Irregular Rhythm - GI/Abdominal Exam GI & Abdominal Exam: Distended Assessment and Plan - Assessment and Plan (Free Text) Assessment: Acute decompensated CHF secodary to Ischemic CMP ( systolic dys Fx) Ch Afib CAD CABG IWMI S/p MV repair S/p ASICD ascites cardiac cachexia endstage CMP S/p PTCA pre and post CABG Refused blood w/uon coumadin Plan: Check Pt /inr stat monitor lyes continue Dig, Diuretics and dobutrex
[2016-08-16 10:43] LABS: BASO # 0.01 K/mm3 (0.0-2.0); BASO % 0.3 % (0.0-3.0); EOS % 0.9 % (1.5-5.0); GRAN # 2.77 (1.4-6.5); GRAN % 79.3 % (50.0-68.0); HEMOGLOBIN 12.5 gm/dL (12.0-16.0); LYMPH # 0.5 (1.2-3.4); LYMPH % 13.8 % (22.0-35.0); MEAN CELL VOLUME 86.8 fL (80.0-105.0); MEAN CORPUSCULAR HEMOGLOBIN 26.7 pg (25.0-35.0); MEAN CORPUSCULAR HGB CONC 30.7 g/dl (31.0-37.0); MEAN PLATELET VOLUME 10.1 fl (7.0-11.0); MONO # 0.2 (0.1-0.6); MONO % 5.7 % (1.0-6.0); PLATELET COUNT 131 10^3/uL (120.0-450.0); RBC 4.69 10^6/uL (3.5-6.1); RED CELL DISTRIBUTION WIDTH 17.8 % (11.5-14.5); WHITE BLOOD COUNT 3.5 10^3/ul (4.5-11.0)
[2016-08-16 10:58] LABS: PROTHROMBIN TIME 41.2 Seconds (9.9-11.8)
[2016-08-16 11:02] LABS: INR 3.81 (0.93-1.08)
[2016-08-16 11:18] LABS: ALB/GLOB RATIO 0.8 (1.1-1.8); ALBUMIN 3.2 g/dL (3.0-4.8); ALT/SGPT 15 U/L (7-56); AST/SGOT 31 U/L (15-39); BLOOD UREA NITROGEN 22 mg/dL (7-21); GFR AFRICAN-AMERICAN > 60; GFR NON-AFRICAN AMERICAN > 60; MAGNESIUM 1.7 mg/dL (1.7-2.2)
[2016-08-16] MEDS ORDERED: Phytonadione 10 mg/ml Inj (Adult) SC ONE (13:24)
--- NOTE | 2016-08-16 13:28 | CP.PCM.PN ---
Subjective - Date & Time of Evaluation Date of Evaluation: 08/16/16 Time of Evaluation: 09:00 - Subjective Subjective: NAD, denies cp or sob Objective - Vital Signs/Intake and Output Vital Signs (last 24 hours): Temp Pulse Resp BP Pulse Ox 97.6 F 79 18 133/81 97 08/16/16 11:56 08/16/16 11:56 08/16/16 11:56 08/16/16 11:56 08/16/16 05:58 Intake and Output: 08/16/16 08/16/16 06:59 18:59 Intake Total 708 Output Total 950 Balance -242 - Medications Medications: Current Medications Acetaminophen (Tylenol 325mg Tab) 650 mg PO Q6H PRN PRN Reason: Pain, Mild (1-3) Last Admin: 08/15/16 21:40 Dose: 650 mg Albuterol/Ipratropium (Duoneb 3 Mg/0.5 Mg (3 Ml) Ud) 3 ml IH [id number] [facility] Last Admin: 08/16/16 08:10 Dose: 3 ml Atorvastatin Calcium (Lipitor) 10 mg PO DIN [facility] Last Admin: 08/15/16 17:03 Dose: 10 mg Digoxin (Lanoxin) 0.25 mg PO 1400 [facility] Last Admin: 08/15/16 13:52 Dose: 0.25 mg Diphenhydramine HCl (Benadryl) 50 mg PO HS PRN PRN Reason: Insomnia Docusate Sodium (Colace) 100 mg PO BID [facility] Last Admin: 08/16/16 11:03 Dose: 100 mg Furosemide (Lasix) 80 mg IVP Q12 [facility] Last Admin: 08/16/16 10:11 Dose: 80 mg Dobutamine HCl/Dextrose (Dobutamine/Dextrose 5% 500mg/250ml) 500 mg in 250 mls @ 9.457 mls/hr IV .Q24H PRN; Protocol; 5 MCG/KG/MIN PRN Reason: TITRATE PER PROTOCOL Last Admin: 08/16/16 01:24 Dose: 9.457 mls/hr Insulin Human Regular (Humulin R Low) 0 units SC ACHS [facility] PRN Reason: Protocol Warfarin Sodium (Coumadin) 3 mg PO 1800 [facility] PRN Reason: Protocol Last Admin: 08/15/16 17:03 Dose: 3 mg - Labs Labs: 08/16/16 10:00 08/16/16 10:00 PT 41.2 Seconds (9.9-11.8) H* 08/16/16 10:00 INR 3.81 (0.93-1.08) H* 08/16/16 10:00 APTT 43.1 Seconds (23.7-30.8) H 08/13/16 12:38 - Respiratory Exam Respiratory Exam: Rales - Cardiovascular Exam Cardiovascular Exam: RRR, Murmur Assessment and Plan (1) Abdominal pain Status: Acute (2) Ascites Status: Acute (3) CHF (congestive heart failure) Status: Acute (4) COPD (chronic obstructive pulmonary disease) Status: Acute (5) Cardiomyopathy Status: Acute (6) Coumadin toxicity Status: Acute - Assessment and Plan (Free Text) Plan: vitamin K 10mg sc, monitor INR, for abd paracentesis, continue IV dobutamine
[2016-08-16] MEDS: Insulin Reg-LOW-Coverage SC SCH ×3 (14:03→23:45)
[2016-08-16] MEDS: Digoxin 250 mcg (0.25 mg) Tab PO SCH (14:26)
--- NOTE | 2016-08-16 19:33 | US ---
PROCEDURE: Ultrasound guided paracentesis. HISTORY: Cirrhosis. Recurrent ascites with abdominal pain and distention. Needs paracentesis. PHYSICIAN(S): Yaw Leonard MD. TECHNIQUE: The relative risks and indications for the procedure were explained to the patient and informed written consent obtained. Sonography of the abdomen was performed in a supine position. This revealed a moderate amount of non-loculated ascites, greatest in the right lower quadrant. A puncture site was selected and the area was prepped and draped in the usual sterile fashion. 1% Xylocaine was used to anesthetize the skin and soft tissues. A 7 [place] paracentesis catheter was trocared into the right lower quadrantand 4600 cc of clear straw-colored fluid aspirated. No labs were sent. IMPRESSION: Ultrasound-guided paracentesis in the right lower quadrant. 4600 cc of fluid were aspirated.
[2016-08-17] MEDS: Albuterol-Ipratrop 3 mg / 0.5 (3 ml) UD IH SCH ×5 (01:45→19:59)
[2016-08-17] MEDS: DOBUTamine 500mg/250ml D5W 500 MG/250 ML BAG IV PRN (06:06)
[2016-08-17 07:39] LABS: INR 2.69 (0.93-1.08); PROTHROMBIN TIME 29.1 Seconds (9.9-11.8)
[2016-08-17 07:59] LABS: BLOOD UREA NITROGEN 21 mg/dL (7-21); CALCIUM 7.8 mg/dL (8.4-10.5); GFR AFRICAN-AMERICAN > 60; GFR NON-AFRICAN AMERICAN > 60
[2016-08-17] MEDS: Insulin Reg-LOW-Coverage SC SCH ×4 (08:23→22:03)
--- NOTE | 2016-08-17 13:01 | CP.PCM.PN ---
Subjective - Date & Time of Evaluation Date of Evaluation: 08/17/16 Time of Evaluation: 12:00 - Subjective Subjective: NAD, s/p abd paracentesis, no cp, no SOB Objective - Vital Signs/Intake and Output Vital Signs (last 24 hours): Temp Pulse Resp BP Pulse Ox 97.6 F 83 21 120/81 95 08/17/16 12:00 08/17/16 12:00 08/17/16 12:00 08/17/16 12:00 08/17/16 06:00 Intake and Output: 08/17/16 08/17/16 06:59 18:59 Intake Total 240 114 Balance 240 114 - Medications Medications: Current Medications Acetaminophen (Tylenol 325mg Tab) 650 mg PO Q6H PRN PRN Reason: Pain, Mild (1-3) Last Admin: 08/15/16 21:40 Dose: 650 mg Albuterol/Ipratropium (Duoneb 3 Mg/0.5 Mg (3 Ml) Ud) 3 ml IH [id number] [facility] Last Admin: 08/17/16 07:58 Dose: 3 ml Atorvastatin Calcium (Lipitor) 10 mg PO DIN [facility] Last Admin: 08/16/16 18:18 Dose: 10 mg Digoxin (Lanoxin) 0.25 mg PO 1400 [facility] Last Admin: 08/16/16 14:26 Dose: 0.25 mg Diphenhydramine HCl (Benadryl) 50 mg PO HS PRN PRN Reason: Insomnia Docusate Sodium (Colace) 100 mg PO BID [facility] Last Admin: 08/17/16 10:34 Dose: 100 mg Furosemide (Lasix) 80 mg IVP 0600,1800 [facility] Last Admin: 08/17/16 06:04 Dose: 80 mg Insulin Human Regular (Humulin R Low) 0 units SC ACHS [facility] PRN Reason: Protocol Last Admin: 08/17/16 12:39 Dose: 2 units - Labs Labs: 08/16/16 10:00 08/17/16 07:15 PT 29.1 Seconds (9.9-11.8) H 08/17/16 07:15 INR 2.69 (0.93-1.08) H 08/17/16 07:15 APTT 43.1 Seconds (23.7-30.8) H 08/13/16 12:38 - Respiratory Exam Respiratory Exam: Clear to Ausculation Bilateral, NORMAL BREATHING PATTERN - Cardiovascular Exam Cardiovascular Exam: RRR, Murmur - GI/Abdominal Exam GI & Abdominal Exam: Soft, Normal Bowel Sounds - Back Exam Back Exam: NORMAL INSPECTION - Neurological Exam Neurological Exam: Alert, Awake, Oriented x3 - Skin Skin Exam: Dry, Intact Assessment and Plan (1) Abdominal pain Status: Acute (2) Ascites Status: Acute (3) CHF (congestive heart failure) Status: Acute (4) COPD (chronic obstructive pulmonary disease) Status: Acute (5) Cardiomyopathy Status: Acute (6) Coumadin toxicity Status: Acute - Assessment and Plan (Free Text) Plan: dc dobutamine, restart anticoag, PT eval, SW for d/c planning
[2016-08-17] MEDS: Digoxin 250 mcg (0.25 mg) Tab PO SCH (13:37)
[2016-08-17 13:38] VITALS: PULSE 86
[2016-08-17] MEDS ORDERED: Potassium Chloride 20 mEq ER Tab PO ONE (17:25)
--- NOTE | 2016-08-17 17:25 | CP.PCM.PN ---
Subjective - Date & Time of Evaluation Date of Evaluation: 08/17/16 Time of Evaluation: 09:30 - Subjective Subjective: Feels Less SOB, Less abdominal pain, S/p Large vol Ab parcentesis. Objective - Vital Signs/Intake and Output Vital Signs (last 24 hours): Temp Pulse Resp BP Pulse Ox 97.6 F 86 21 111/54 L 95 08/17/16 12:00 08/17/16 14:00 08/17/16 12:00 08/17/16 13:36 08/17/16 06:00 Intake and Output: 08/17/16 08/17/16 06:59 18:59 Intake Total 240 714 Output Total 900 Balance 240 -186 - Medications Medications: Current Medications Acetaminophen (Tylenol 325mg Tab) 650 mg PO Q6H PRN PRN Reason: Pain, Mild (1-3) Last Admin: 08/15/16 21:40 Dose: 650 mg Albuterol/Ipratropium (Duoneb 3 Mg/0.5 Mg (3 Ml) Ud) 3 ml IH [id number] [facility] Last Admin: 08/17/16 13:50 Dose: 3 ml Atorvastatin Calcium (Lipitor) 10 mg PO DIN [facility] Last Admin: 08/16/16 18:18 Dose: 10 mg Digoxin (Lanoxin) 0.25 mg PO 1400 [facility] Last Admin: 08/17/16 13:37 Dose: 0.25 mg Diphenhydramine HCl (Benadryl) 50 mg PO HS PRN PRN Reason: Insomnia Docusate Sodium (Colace) 100 mg PO BID [facility] Last Admin: 08/17/16 10:34 Dose: 100 mg Furosemide (Lasix) 80 mg PO DAILY [facility] Last Admin: 08/17/16 13:36 Dose: 80 mg Insulin Human Regular (Humulin R Low) 0 units SC ACHS [facility] PRN Reason: Protocol Last Admin: 08/17/16 12:39 Dose: 2 units Warfarin Sodium (Coumadin) 2 mg PO 1800 [facility] PRN Reason: Protocol - Labs Labs: 08/16/16 10:00 08/17/16 07:15 PT 29.1 Seconds (9.9-11.8) H 08/17/16 07:15 INR 2.69 (0.93-1.08) H 08/17/16 07:15 APTT 43.1 Seconds (23.7-30.8) H 08/13/16 12:38 - Constitutional Appears: Non-toxic - Head Exam Head Exam: ATRAUMATIC - Eye Exam Eye Exam: Conjunctival injection - ENT Exam ENT Exam: Mucous Membranes Dry - Neck Exam Neck Exam: Full ROM - Respiratory Exam Respiratory Exam: Clear to Ausculation Bilateral - Cardiovascular Exam Cardiovascular Exam: Irregular Rhythm, REGULAR RHYTHM Assessment and Plan - Assessment and Plan (Free Text) Assessment: Recurrent Ascites secondary to CHF Cardiac Cachexia Ischemic CMP CHF secondary ot Systolic Dysfx , CMP, ischemic CAD S/p Multiple PTCA S/p CABG S/p MVR c [place] S/p Defib T2DM failure to thrive. S/p large Volue abd parcentesis ...4.6 lit Hypokalemia Plan: Continue dobutrex. Dig, Diuretic supportive care condition critical usp prognosis Poor Supplement K.
[2016-08-18 00:27] VITALS: O2SAT 93
[2016-08-18] MEDS: Albuterol-Ipratrop 3 mg / 0.5 (3 ml) UD IH SCH ×2 (01:29→07:46)
[2016-08-18 06:17] VITALS: BP 123/68; RESP 20; TEMP 98.7
[2016-08-18 07:47] LABS: BASO # 0.02 K/mm3 (0.0-2.0); BASO % 0.5 % (0.0-3.0); GRAN # 2.87 (1.4-6.5); GRAN % 70.1 % (50.0-68.0); HEMOGLOBIN 12.6 gm/dL (12.0-16.0); LYMPH # 0.9 (1.2-3.4); LYMPH % 21.3 % (22.0-35.0); MEAN CORPUSCULAR HEMOGLOBIN 26.4 pg (25.0-35.0); MEAN CORPUSCULAR HGB CONC 30.7 g/dl (31.0-37.0); MEAN PLATELET VOLUME 10.4 fl (7.0-11.0); MONO # 0.3 (0.1-0.6); MONO % 7.1 % (1.0-6.0); PLATELET COUNT 132 10^3/uL (120.0-450.0); RBC 4.78 10^6/uL (3.5-6.1); RED CELL DISTRIBUTION WIDTH 17.1 % (11.5-14.5); WHITE BLOOD COUNT 4.1 10^3/ul (4.5-11.0)
[2016-08-18 07:48] LABS: INR 1.31 (0.93-1.08); PROTHROMBIN TIME 14.2 Seconds (9.9-11.8)
[2016-08-18] MEDS: Insulin Reg-LOW-Coverage SC SCH (08:04)
[2016-08-18 08:07] LABS: BLOOD UREA NITROGEN 25 mg/dL (7-21); CALCIUM 7.7 mg/dL (8.4-10.5); GFR AFRICAN-AMERICAN > 60; GFR NON-AFRICAN AMERICAN > 60; MAGNESIUM 1.6 mg/dL (1.7-2.2)
--- NOTE | 2016-08-18 10:50 | CP.PCM.PN ---
Subjective - Date & Time of Evaluation Date of Evaluation: 08/18/16 Time of Evaluation: 09:00 - Subjective Subjective: c/o mild abd discomfort, no cp, no sob, s/p abd paracentesis Objective - Vital Signs/Intake and Output Vital Signs (last 24 hours): Temp Pulse Resp BP Pulse Ox 98.7 F 85 20 123/68 93 L 08/18/16 06:00 08/18/16 06:00 08/18/16 06:00 08/18/16 09:03 08/18/16 00:01 Intake and Output: 08/18/16 08/18/16 06:59 18:59 Intake Total 380 Output Total 300 Balance 80 - Medications Medications: Current Medications Acetaminophen (Tylenol 325mg Tab) 650 mg PO Q6H PRN PRN Reason: Pain, Mild (1-3) Last Admin: 08/15/16 21:40 Dose: 650 mg Albuterol/Ipratropium (Duoneb 3 Mg/0.5 Mg (3 Ml) Ud) 3 ml IH [id number] [facility] Last Admin: 08/18/16 07:46 Dose: 3 ml Atorvastatin Calcium (Lipitor) 10 mg PO DIN [facility] Last Admin: 08/17/16 18:09 Dose: 10 mg Digoxin (Lanoxin) 0.25 mg PO 1400 [facility] Last Admin: 08/17/16 13:37 Dose: 0.25 mg Diphenhydramine HCl (Benadryl) 50 mg PO HS PRN PRN Reason: Insomnia Docusate Sodium (Colace) 100 mg PO BID [facility] Last Admin: 08/18/16 09:04 Dose: 100 mg Furosemide (Lasix) 80 mg PO DAILY [facility] Last Admin: 08/18/16 09:03 Dose: 80 mg Insulin Human Regular (Humulin R Low) 0 units SC ACHS [facility] PRN Reason: Protocol Last Admin: 08/18/16 08:04 Dose: Not Given Warfarin Sodium (Coumadin) 2 mg PO 1800 [facility] PRN Reason: Protocol Last Admin: 08/17/16 18:09 Dose: 2 mg - Labs Labs: 08/18/16 07:00 08/18/16 07:00 PT 14.2 Seconds (9.9-11.8) H 08/18/16 07:00 INR 1.31 (0.93-1.08) H 08/18/16 07:00 APTT 43.1 Seconds (23.7-30.8) H 08/13/16 12:38 - Respiratory Exam Respiratory Exam: Clear to Ausculation Bilateral - Cardiovascular Exam Cardiovascular Exam: REGULAR RHYTHM - GI/Abdominal Exam GI & Abdominal Exam: Soft, Normal Bowel Sounds - Extremities Exam Extremities Exam: Normal Inspection - Neurological Exam Neurological Exam: Awake, Oriented x3 - Skin Skin Exam: Normal Color, Warm Assessment and Plan (1) Abdominal pain Status: Acute (2) Ascites Status: Acute (3) CHF (congestive heart failure) Status: Acute (4) COPD (chronic obstructive pulmonary disease) Status: Acute (5) Cardiomyopathy Status: Acute (6) Coumadin toxicity Status: Acute - Assessment and Plan (Free Text) Plan: PT/SW fpr d/c planning
[2016-08-18] MEDS ORDERED: Magnesium Sulfate 2 GM in Sodium Chloride 0.9% 100 ML IVPB ONE (11:34)
--- NOTE | 2016-08-18 12:18 | CP.PCM.DIS ---
Provider - Provider Date of Admission: 08/13/16 14:51 Attending physician: Garcia Valdez JD, MD Primary care physician: Garcia Valdez JD, MD Time Spent in preparation of Discharge (in minutes): 30 Diagnosis - Discharge Diagnosis (1) Abdominal pain Status: Acute (2) Ascites Status: Acute (3) CHF (congestive heart failure) Status: Acute (4) COPD (chronic obstructive pulmonary disease) Status: Acute (5) Cardiomyopathy Status: Acute (6) Coumadin toxicity Status: Acute Hospital Course - Lab Results Lab Results: Most Recent Lab Values WBC 4.1 10^3/ul (4.5-11.0) L 08/18/16 07:00 RBC 4.78 10^6/uL (3.5-6.1) 08/18/16 07:00 Hgb 12.6 gm/dL (12.0-16.0) 08/18/16 07:00 Hct 41.1 % (36.0-48.0) 08/18/16 07:00 MCV 86.0 fL (80.0-105.0) 08/18/16 07:00 MCH 26.4 pg (25.0-35.0) 08/18/16 07:00 MCHC 30.7 g/dl (31.0-37.0) L 08/18/16 07:00 RDW 17.1 % (11.5-14.5) H 08/18/16 07:00 Plt Count 132 10^3/uL (120.0-450.0) 08/18/16 07:00 MPV 10.4 fl (7.0-11.0) 08/18/16 07:00 Gran % 70.1 % (50.0-68.0) H 08/18/16 07:00 Lymph % (Auto) 21.3 % (22.0-35.0) L 08/18/16 07:00 [place] % (Auto) 7.1 % (1.0-6.0) H 08/18/16 07:00 Eos % (Auto) 1.0 % (1.5-5.0) L 08/18/16 07:00 Baso % (Auto) 0.5 % (0.0-3.0) 08/18/16 07:00 Gran # 2.87 (1.4-6.5) 08/18/16 07:00 Lymph # 0.9 (1.2-3.4) L 08/18/16 07:00 [place] # 0.3 (0.1-0.6) 08/18/16 07:00 Eos # 0.0 (0.0-0.7) 08/18/16 07:00 Baso # 0.02 K/mm3 (0.0-2.0) 08/18/16 07:00 PT 14.2 Seconds (9.9-11.8) H 08/18/16 07:00 INR 1.31 (0.93-1.08) H 08/18/16 07:00 APTT 43.1 Seconds (23.7-30.8) H 08/13/16 12:38 pCO2 37 mm/Hg (35-45) 08/13/16 13:50 pO2 85.0 mm/Hg (80-100) 08/13/16 13:50 HCO3 24.0 mmol/L (21-28) 08/13/16 13:50 ABG pH 7.42 (7.35-7.45) 08/13/16 13:50 ABG Total CO2 25.1 mmol.L (22-28) 08/13/16 13:50 ABG O2 Saturation 97.8 % (95-98) 08/13/16 13:50 ABG O2 Content 16.3 ML/dl (15-23) 08/13/16 13:50 ABG Base Excess -0.2 mmol/L (-2.0-3.0) 08/13/16 13:50 ABG Hemoglobin 12.2 g/dL (11.7-17.4) 08/13/16 13:50 ABG Carboxyhemoglobin 2.8 % (0.5-1.5) H 08/13/16 13:50 POC ABG HHb (Measured) 2.1 % (0-5) 08/13/16 13:50 ABG Methemoglobin 0.6 % (0.0-3.0) 08/13/16 13:50 ABG O2 Capacity 16.7 mL/dl (16-24) 08/13/16 13:50 VBG pH 7.33 (7.32-7.43) 08/13/16 12:38 VBG pCO2 60.0 (40-60) 08/13/16 12:38 VBG HCO3 31.6 mmol/l (21-28) H 08/13/16 12:38 VBG Total CO2 33.4 mmol.L (22-28) H 08/13/16 12:38 VBG O2 Sat (Calc) 66.1 % (40-65) H 08/13/16 12:38 VBG Base Excess 4.0 mmol/L (0.0-2.0) H 08/13/16 12:38 VBG Potassium 4.8 mmol/L (3.6-5.2) 08/13/16 12:38 Hgb O2 Saturation 94.5 % (95.0-98.0) L 08/13/16 13:50 Sodium 136.0 mmol/L (132-148) 08/13/16 12:38 Chloride 105.0 mmol/L (98-107) 08/13/16 12:38 Glucose 185 mg/dl (65-105) H 08/13/16 12:38 Lactate 1.4 mmol/L (0.7-2.1) 08/13/16 12:38 FiO2 21.0 % 08/13/16 13:50 Sodium 132 mmol/L (132-148) 08/18/16 07:00 Potassium 4.3 mmol/L (3.6-5.0) 08/18/16 07:00 Chloride 93 mmol/L (98-107) L 08/18/16 07:00 Carbon Dioxide 33 mmol/L (21-33) 08/18/16 07:00 Anion Gap 10 (10-20) 08/18/16 07:00 BUN 25 mg/dL (7-21) H 08/18/16 07:00 Creatinine 0.7 mg/dL (0.5-1.4) 08/18/16 07:00 Est GFR ( Amer) > 60 08/18/16 07:00 Est GFR (Non-Af Amer) > 60 08/18/16 07:00 POC Glucose (mg/dL) 98 mg/dL (65-110) 08/18/16 07:28 Random Glucose 94 mg/dL (70-110) 08/18/16 07:00 Calcium 7.7 mg/dL (8.4-10.5) L 08/18/16 07:00 Phosphorus 2.9 mg/dL (2.5-4.5) 08/18/16 07:00 Magnesium 1.6 mg/dL (1.7-2.2) L 08/18/16 07:00 Total Bilirubin 0.8 mg/dL (0.2-1.3) 08/16/16 10:00 Direct Bilirubin 0.5 mg/dL (0.0-0.4) H 08/13/16 12:38 AST 31 U/L (15-39) 08/16/16 10:00 ALT 15 U/L (7-56) 08/16/16 10:00 Alkaline Phosphatase 117 U/L (38-133) 08/16/16 10:00 Lactate Dehydrogenase 659 U/L (333-699) 08/13/16 12:38 Total Creatine Kinase 56 U/L (35-230) 08/13/16 12:38 Troponin I < 0.01 ng/mL D 08/13/16 12:38 NT-Pro-B Natriuret Pep 6230 pg/mL (0-450) H 08/13/16 12:38 Total Protein 7.2 g/dL (5.8-8.3) 08/16/16 10:00 Albumin 3.2 g/dL (3.0-4.8) 08/16/16 10:00 Globulin 4.0 gm/dL 08/16/16 10:00 Albumin/Globulin Ratio 0.8 (1.1-1.8) L 08/16/16 10:00 Lipase 26 U/L (23-300) 08/13/16 12:38 TSH 3rd Generation 2.95 mIU/mL (0.46-4.68) 08/16/16 10:00 Venous Blood Potassium 4.8 mmol/L (3.6-5.2) 08/13/16 12:38 Urine Color Yellow (YELLOW) 08/13/16 13:02 Urine Appearance Sl cloudy (CLEAR) 08/13/16 13:02 Urine pH 6.0 (4.7-8.0) 08/13/16 13:02 Ur Specific [place] >= 1.030 (1.005-1.035) 08/13/16 13:02 Urine Protein 30 mg/dL (<30 mg/dL) H 08/13/16 13:02 Urine Glucose (UA) Negative mg/dL (NEGATIVE) 08/13/16 13:02 Urine Ketones Negative mg/dL (NEGATIVE) 08/13/16 13:02 Urine Blood Small (NEGATIVE) H 08/13/16 13:02 Urine Nitrate Positive (NEGATIVE) H 08/13/16 13:02 Urine Bilirubin Small (NEGATIVE) H 08/13/16 13:02 Urine Urobilinogen 1.0 E.U./dL (<1 E.U./dL) H 08/13/16 13:02 Ur Leukocyte Esterase Moderate Seth/uL (NEGATIVE) H 08/13/16 13:02 Urine RBC 0 - 2 /hpf (0-2) 08/13/16 13:02 Urine WBC Tntc /hpf (0-6) 08/13/16 13:02 Ur Epithelial Cells 1 - 3 /hpf (0-5) 08/13/16 13:02 Urine Bacteria Many (NEG) 08/13/16 13:02 Digoxin 1.2 ng/mL (0.8-2.0) 08/16/16 10:00 Discharge Exam - Head Exam Head Exam: ATRAUMATIC Discharge Plan - Follow Up Plan Condition: IMPROVED Disposition: HOME/ ROUTINE Instructions: Heart Failure (ED), Heart Failure (DC), Heart Failure (GEN), Chest Pain (DC), Chest Pain (GEN), Pacemaker (DC), Pacemaker (GEN), Pulmonary Edema (DC), Pulmonary Edema (GEN), Acute Abdominal Pain (DC), Acute Abdominal Pain (GEN), Ascites (DC), Ascites (GEN)
[2016-08-18 12:36] VITALS: PULSE 90
[2016-08-18] MEDS ORDERED: Magnesium Oxide 400 mg Tab UD PO SCH (18:00)
--- NOTE | 2016-08-19 09:15 | PN ---
DATE: 08/18/2016 The patient is a female. The patient is 71. REASON FOR CONSULTATION FOLLOWUP: Decompensated congestive heart failure, acute on chronic secondary to systolic dysfunction. BRIEF CLINICAL HISTORY: This is a 71-year-old female with past medical history significant for coronary artery disease, status post CABG, multiple admissions with decompensated congestive heart failure and ascites, status post abdominal paracentesis on 08/17/2016 Denies any chest pain, shortness of breath or any palpitations. PHYSICAL EXAMINATION: VITAL SIGNS: Temperature afebrile, heart rate 85, and blood pressure 123/68. HEENT: PERRLA. Extraocular muscles intact. NECK: Supple. No carotid bruits or thyromegaly. HEART: S1 and S2 regular. CHEST: Clear to auscultation. ABDOMEN: Soft. EXTREMITIES: Clubbing and cyanosis negative. LABORATORY DATA: Blood workup as follows: WBC 4.1, hemoglobin 12.6, hematocrit 41.1, and platelet count 132. Chemistry shows sodium 132, potassium 4.3, chloride 93, CO2-23, anion gap of 10, BUN 25, creatinine 0.7, and magnesium 1.6. ASSESSMENT: Decompensated congestive heart failure, acute on chronic secondary to systolic dysfunction, ischemic cardiomyopathy, diabetes, hypertension, hyperlipidemia, atrial fibrillation, chronic ascites recurrent secondary to congestive heart failure, history of coronary artery disease, history of coronary artery bypass graft, history of mitral valve replacement, cardiac cachexia, and history of percutaneous transluminal coronary angioplasty before coronary artery bypass graft. RECOMMENDATIONS: Continue diuretics, continue digoxin, and restart anticoagulation that was held for abdominal paracentesis. Continue Lasix. We will follow with you. Overall, patient's medical long-term prognosis is guarded. Tonia Quinteros MD [facility]
--- NOTE | 2016-08-22 10:52 | PN ---
DATE: 08/18/2016 The patient is a female. The patient is 71. REASON FOR CONSULTATION FOLLOWUP: Decompensated congestive heart failure, acute on chronic secondary to systolic dysfunction. BRIEF CLINICAL HISTORY: This is a 71-year-old female with past medical history significant for coronary artery disease, status post CABG, multiple admissions with decompensated congestive heart failure and ascites, status post abdominal paracentesis on *------*. Denies any chest pain, shortness of breath or any palpitations. PHYSICAL EXAMINATION: VITAL SIGNS: Temperature afebrile, heart rate 85, and blood pressure 123/68. HEENT: PERRLA. Extraocular muscles intact. NECK: Supple. No carotid bruits or thyromegaly. HEART: S1 and S2 regular. CHEST: Clear to auscultation. ABDOMEN: Soft. EXTREMITIES: Clubbing and cyanosis negative. LABORATORY DATA: Blood workup as follows: WBC 4.1, hemoglobin 12.6, hematocrit 41.1, and platelet count 132. Chemistry shows sodium 132, potassium 4.3, chloride 93, *------* 3, anion gap of 10, BUN 25, creatinine 0.7, and magnesium 1.6. ASSESSMENT: Decompensated congestive heart failure, acute on chronic secondary to systolic dysfunction, ischemic cardiomyopathy, diabetes, hypertension, hyperlipidemia, atrial fibrillation, chronic ascites recurrent secondary to congestive heart failure, history of coronary artery disease, history of coronary artery bypass graft, history of mitral valve replacement, cardiac cachexia, and history of percutaneous transluminal coronary angioplasty before coronary artery bypass graft. RECOMMENDATIONS: Continue diuretics, continue digoxin, and restart anticoagulation that was held for abdominal paracentesis. Continue Lasix. We will follow with you. Overall, patient's medical long-term prognosis is guarded. Tonia Quinteros MD
== END 2016-08-18 11:34 | disposition home or self-care (01) | DRG 292 ==
LOC: ED 12:15 → ERH 14:51 → 2RSO 16:58 → 2RNO 08-17 03:20
PROVIDERS: ADMIT Internal Medicine; ATTEND Internal Medicine
PROC: 0W9G3ZZ Drainage of Peritoneal Cavity, Percutaneous Approach (ICD-10-PCS; principal; 2016-08-16 16:00)
DX: I11.0 Hypertensive heart disease with heart failure (principal); I50.43 Acute on chronic combined systolic (congestive) and diastolic (congestive) heart failure; R18.8 Other ascites; R64 Cachexia; I48.2 Chronic atrial fibrillation; J44.9 Chronic obstructive pulmonary disease, unspecified; I25.5 Ischemic cardiomyopathy; I25.10 Atherosclerotic heart disease of native coronary artery without angina pectoris; E11.9 Type 2 diabetes mellitus without complications; I73.00 Raynaud's syndrome without gangrene; M25.551 Pain in right hip; R62.7 Adult failure to thrive; E87.6 Hypokalemia; E78.5 Hyperlipidemia, unspecified; Z68.23 Body mass index [BMI] 23.0-23.9, adult; Z95.1 Presence of aortocoronary bypass graft; Z87.891 Personal history of nicotine dependence; Z95.810 Presence of automatic (implantable) cardiac defibrillator; Z79.01 Long term (current) use of anticoagulants; Z86.73 Personal history of transient ischemic attack (TIA), and cerebral infarction without residual deficits; Z95.2 Presence of prosthetic heart valve

== ENCOUNTER 2016-09-04 23:23 | Inpatient (IN) | payer MEDICARE, OTHER ==
[2016-09-04 23:23] VITALS: PULSE 86
[2016-09-04 23:36] VITALS: BMI 25.8
--- NOTE | 2016-09-04 23:54 | ED PDOC ---
Arrival/HPI - General Chief Complaint: Chest Pain Time Seen by Provider: 09/04/16 23:25 Historian: Patient - History of Present Illness Narrative History of Present Illness (Text): 09/04/16 23:53 Chasidy Alicia is a 71 year old female, whose past medical history includes CAD/ CABG, CHF, pacemaker, diabetes, atrial fibrillation, and ascites, who presents to the Emergency department complaining of upper abdominal pain tonight. Patient reports associated chest pain and diarrhea. Patient denies any fever, chills, shortness of breath, nausea, vomiting, urinary symptoms, back pain, neck pain, headache, dizziness, or any other complaints. Symptom Onset: Gradual Symptom Course: Unchanged Activities at Onset: Rest, Light Context: Home Past Medical History - Provider Review Nursing Documentation Reviewed: Yes - Infectious Disease Hx of Infectious Diseases: None - Tetanus Immunization Tetanus Immunization: Unknown - Reproductive Menopause: Yes - Cardiac Hx Cardiac Disorders: Yes ([place] , CAD) Hx Congestive Heart Failure: Yes Hx Hypertension: Yes - Pulmonary Hx Chronic Obstructive Pulmonary Disease (COPD): Yes - Neurological Hx Neurological Disorder: Yes Hx Transient Ischemic Attacks (TIA): Yes - HEENT Hx HEENT Disorder: Yes Hx Deafness: Yes - Renal Hx Renal Disorder: No - Endocrine/Metabolic Hx Diabetes Mellitus Type 2: Yes - Hematological/Oncological Hx Blood Disorders: Yes Hx Cancer: Yes - Integumentary Hx 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 ON COUMADIN. 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 - Musculoskeletal/Rheumatological Hx Musculoskeletal Disorders: Yes Hx Falls: Yes Hx Fractures: Yes (METATARSAL FX) Hx Herniated Disk: Yes Hx Unsteady Gait: Yes - Gastrointestinal Hx Gastrointestinal Disorders: Yes (ENTEROCOLITIS,COLECTOMY,TONSILLECTOMY) Hx Gall Bladder Disease: Yes (CHOLEYCYSTECTOMY) Hx Liver Failure: Yes Other/Comment: history of ascites/ paracenthesis done in the past - Genitourinary/Gynecological Hx Genitourinary Disorders: Yes Hx Incontinence: Yes - Psychiatric Hx Psychophysiologic Disorder: Yes Hx Anxiety: Yes Hx Depression: Yes Hx Substance Use: No - Surgical History Hx Appendectomy: Yes Hx Cholecystectomy: Yes Hx Coronary Stent: Yes (X3) Hx Open Heart Surgery: Yes Hx Orthopedic Surgery: Yes (laminectomy) Other/Comment: Herniated disc repair, partial colectomy, tonsilectomy - Anesthesia Hx Anesthesia: No - Suicidal Assessment Feels Threatened In Home Enviroment: No Family/Social History - Physician Review Nursing Documentation Reviewed: Yes Family/Social History: Unknown Family HX Smoking Status: Former Smoker Hx Alcohol Use: No Hx Substance Use: No Hx Substance Use Treatment: No Allergies/Home Meds Allergies/Adverse Reactions: Allergies adhesive tape Allergy (Verified 09/04/16 23:36) REDNESS naproxen Allergy (Verified 09/04/16 23:36) VOMITING ciprofloxacin Adverse Reaction (Verified 09/04/16 23:36) ANAPHYLAXIS Home Medications: Home Meds Medication Instructions Recorded Confirmed Simvastatin 20 mg PO DAILY 04/25/16 09/04/16 DiphenhydrAMINE [Benadryl] 2 tab PO HS 06/08/16 09/04/16 Review of Systems - Physician Review All systems were reviewed & negative as marked: Yes - Review of Systems Constitutional: Normal. absent: Fevers Eyes: Normal ENT: Normal Respiratory: Normal. absent: SOB, Cough Cardiovascular: Chest Pain Gastrointestinal: Abdominal Pain, Diarrhea Genitourinary Female: Normal. absent: Dysuria, Frequency, Hematuria, Urine Output Changes Musculoskeletal: Normal. absent: Back Pain, Neck Pain Skin: Normal. absent: Rash Neurological: Normal. absent: Headache, Dizziness Endocrine: Normal Hemo/Lymphatic: Normal Psychiatric: Normal Physical Exam Vital Signs Reviewed: Yes Vital Signs Temp Pulse Resp BP Pulse Ox 09/05/16 04:51 81 17 109/76 93 L 09/05/16 03:21 80 18 93 L 09/04/16 23:37 97.5 F L 17 99/50 L 09/04/16 23:35 97.5 F L 80 17 99/50 L 96 Temperature: Afebrile Blood Pressure: Normal Pulse: Regular Respiratory Rate: Normal Appearance: Positive for: Well-Appearing, Non-Toxic, Comfortable Pain Distress: None Mental Status: Positive for: Alert and Oriented X 3 - Systems Exam Head: Present: Atraumatic, Normocephalic Pupils: Present: PERRL Extroacular Muscles: Present: EOMI Conjunctiva: Present: Normal Mouth: Present: Moist Mucous Membranes Neck: Present: Normal Range of Motion Respiratory/Chest: Present: Clear to Auscultation, Good Air Exchange. No: Respiratory Distress, Accessory Muscle Use Cardiovascular: Present: Regular Rate and Rhythm, Normal S1, S2. No: Murmurs Abdomen: Present: Tenderness (Mild palpable tenderness to mid-upper abdomen), Distention (Some abdominal distention with tympany), Normal Bowel Sounds. No: Peritoneal Signs Back: Present: Normal Inspection Upper Extremity: Present: Normal Inspection. No: Cyanosis, Edema Lower Extremity: Present: Cyanosis (Chronic mottling/cyanosis of extremties). No: Edema Neurological: Present: GCS=15, CN II-XII Intact, Speech Normal Skin: Present: Warm, Dry, Normal Color. No: Rashes Psychiatric: Present: Alert, Oriented x 3, Normal Insight, Normal Concentration Medical Decision Making ED Course and Treatment: 09/04/16 23:53 Impression: 71 year old female complaining of upper abdominal pain, chest pain, and diarrhea. Plan: -- EKG -- Chest X-ray -- Labs, cardiac enzymes, BNP -- Reassess and disposition Prior Visits: Notes and results from previous visits were reviewed. On 08/13/2016, pt was seen in the Emergency department for abdominal pain, shortness of breath, and flank pain. Pt was admitted to the hospital for further evaluation. Progress Notes: - Lab Interpretations I have reviewed the lab results: Yes - RAD Interpretation Narrative RAD Interpretations (Text): CT Abdomen and Pelvis shows: LOWER THORAX: Small right pleural effusion, a new finding. Patchy consolidation in the right lung base, which could represent atelectasis versus a small, patchy infiltrate. Heart again appears enlarged. ABDOMEN: LIVER: No acute abnormality of the liver identified. GALLBLADDER AND BILE DUCTS: Cholecystectomy clips. Air in the biliary tree/ pneumobilia again seen. This may be postsurgical in etiology, such as from a previous sphincterotomy. Recommend correlation with surgical history and the clinical presentation. PANCREAS: No CT evidence of acute pancreatitis. SPLEEN: No acute abnormality of the spleen identified. ADRENALS: No acute abnormality of the adrenal glands identified. KIDNEYS AND URETERS: No acute abnormality of the kidneys seen. STOMACH AND BOWEL: Colonic diverticulosis, with no evidence of acute diverticulitis. No acute abnormality of the stomach, small bowel or colon identified. No evidence of bowel obstruction. APPENDIX: Normal appendix is not seen, however, there are no significant inflammatory changes visualized in the expected location of the appendix to suggest appendicitis. Recommend clinical correlation. PELVIS: BLADDER: No acute abnormality of the bladder identified. REPRODUCTIVE:No acute abnormality of the reproductive organs is seen. No acute abnormality of the uterus identified. No evidence of large adnexal masses. ABDOMEN and PELVIS: INTRAPERITONEAL SPACE: Moderate amount of abdominal and pelvic free fluid. This appears loculated/complex. This finding was also seen on the prior exam. The amount of fluid present is not significantly changed. Stable appearance of omental fat infiltration. No evidence of free air. BONES/JOINTS: Bony structures appear demineralized. SOFT TISSUES: Diffuse subcutaneous edema/anasarca, also seen on the prior study. Postsurgical changes involving the anterior pelvic wall, which are most likely related to previous hernia repair. VASCULATURE: 3.5 cm infrarenal abdominal aortic aneurysm, stable in appearance. Atherosclerotic calcification. No evidence of aneurysm rupture. LYMPH NODES: No evidence of diffuse lymphadenopathy. IMPRESSION: - Small right pleural effusion, with adjacent atelectasis versus a small infiltrate in the right lung base. - Otherwise stable findings compared to a 08/05/2016 CT. - Moderate abdominal and pelvic free fluid/ascites again seen, unchanged. This appears complex/loculated, and there is omental infiltration, findings which can be seen in a setting of malignant ascites. Recommend clinical correlation. - Diffuse subcutaneous edema/anasarca. - See above for remaining findings. Sql Manager: ED Physician, Radiologist - EKG Interpretation Interpreted by ED Physician: Yes Type: 12 lead EKG ED OBSERVATION Date of observation admission: 09/04/16 Time of observation admission: 23:55 - Observation admission statement Patient is being placed in observation because:: chest pain, abdominal pain - Goals of Observation Goals of observation are:: treatment of symptoms, labs, imaging, final disposition - Progress Note Progress Note: 09/04/16 23:55 Reviewed EKG, 100% paced rhythm at 82 bpm. Left posterior hemiblock. Inferior/ anterior infarct. 09/05/16 01:11 Reviewed radiology, Chest X-ray shows cardiomegaly. 09/05/16 03:10 Pt resting, no acute distress. 09/05/16 05:10 Pt resting, no acute distress. Pending CT scan. 09/05/16 05:24 CT Abdomen and Pelvis shows: - Small right pleural effusion, with adjacent atelectasis versus a small infiltrate in the right lung base. - Otherwise stable findings compared to a 08/05/2016 CT. - Moderate abdominal and pelvic free fluid/ascites again seen, unchanged. This appears complex/loculated, and there is omental infiltration, findings which can be seen in a setting of malignant ascites. Recommend clinical correlation. - Diffuse subcutaneous edema/anasarca. - See above for remaining findings. 09/05/16 06:[address] Valdez, who is aware and agrees with plan. Accepts pt in to his service. Pt will go to Telemetry observation for chest pain, abdominal pain, ascites, and anasarca. Requests Dr. Yaw Leonard and Dr. Quinteros on consult. - Scribe Statement The provider has reviewed the documentation as recorded by the Javier Amaro Provider Scribe Attestation: All medical record entries made by the Scribe were at my direction and personally dictated by me. I have reviewed the chart and agree that the record accurately reflects my personal performance of the history, physical exam, medical decision making, and the department course for this patient. I have also personally directed, reviewed, and agree with the discharge instructions and disposition. Disposition/Present on Arrival - Present on Arrival Any Indicators Present on Arrival: No History of DVT/PE: No History of Uncontrolled Diabetes: No Urinary Catheter: No History of Decub. Ulcer: No History Surgical Site Infection Following: None - Disposition Have Diagnosis and Disposition been Completed?: Yes Diagnosis: Ascites, Chest pain, Abdominal pain Disposition: HOSPITALIZED Disposition Time: 06:41 Patient Plan: Observation Condition: STABLE
[2016-09-05 00:44] LABS: HEMOGLOBIN 15.2 gm/dL (12.0-16.0); MEAN CELL VOLUME 86.4 fL (80.0-105.0); MEAN CORPUSCULAR HEMOGLOBIN 27.3 pg (25.0-35.0); MEAN CORPUSCULAR HGB CONC 31.6 g/dl (31.0-37.0); MEAN PLATELET VOLUME 10.1 fl (7.0-11.0); RBC 5.57 10^6/uL (3.5-6.1); RED CELL DISTRIBUTION WIDTH 17.4 % (11.5-14.5); WHITE BLOOD COUNT 3.5 10^3/ul (4.5-11.0)
[2016-09-05 00:55] LABS: INR 2.1 (0.93-1.08); PARTIAL THROMBOPLASTIN TIME 39.2 Seconds (23.7-30.8); PROTHROMBIN TIME 22.7 Seconds (9.9-11.8)
[2016-09-05 03:05] LABS: ALB/GLOB RATIO 0.8 (1.1-1.8); ALT/SGPT 18 U/L (7-56); AST/SGOT 27 U/L (15-39); BLOOD UREA NITROGEN 15 mg/dL (7-21); GFR AFRICAN-AMERICAN > 60; GFR NON-AFRICAN AMERICAN > 60
[2016-09-05 03:16] LABS: B-TYPE NATRIURETIC PEPTIDE 4880 pg/mL (0-450); TROPONIN I 0.01 ng/mL
--- NOTE | 2016-09-05 05:12 | CT ---
EXAM: CT Abdomen and Pelvis Without Intravenous Contrast CLINICAL HISTORY: 71 years old, female; Pain; Abdominal pain; Generalized TECHNIQUE: Axial computed tomography images of the abdomen and pelvis without intravenous contrast. This CT exam was performed using one or more of the following dose reduction techniques: automated exposure control, adjustment of the mA and/or kV according to patient size, and/or use of iterative reconstruction technique. Coronal and sagittal reformatted images were created and reviewed. EXAM DATE/TIME: 09/05/2016 3:13 AM COMPARISON: Prior CT abdomen and pelvis of 08/05/2016 FINDINGS: LOWER THORAX: Small right pleural effusion, a new finding. Patchy consolidation in the right lung base, which could represent atelectasis versus a small, patchy infiltrate. Heart again appears enlarged. ABDOMEN: LIVER: No acute abnormality of the liver identified. GALLBLADDER AND BILE DUCTS: Cholecystectomy clips. Air in the biliary tree/pneumobilia again seen. This may be postsurgical in etiology, such as from a previous sphincterotomy. Recommend correlation with surgical history and the clinical presentation. PANCREAS: No CT evidence of acute pancreatitis. SPLEEN: No acute abnormality of the spleen identified. ADRENALS: No acute abnormality of the adrenal glands identified. KIDNEYS AND URETERS: No acute abnormality of the kidneys seen. STOMACH AND BOWEL: Colonic diverticulosis, with no evidence of acute diverticulitis. No acute abnormality of the stomach, small bowel or colon identified. No evidence of bowel obstruction. APPENDIX: Normal appendix is not seen, however, there are no significant inflammatory changes visualized in the expected location of the appendix to suggest appendicitis. Recommend clinical correlation. PELVIS: BLADDER: No acute abnormality of the bladder identified. REPRODUCTIVE:No acute abnormality of the reproductive organs is seen. No acute abnormality of the uterus identified. No evidence of large adnexal masses. ABDOMEN and PELVIS: INTRAPERITONEAL SPACE: Moderate amount of abdominal and pelvic free fluid. This appears loculated/complex. This finding was also seen on the prior exam. The amount of fluid present is not significantly changed. Stable appearance of omental fat infiltration. No evidence of free air. BONES/JOINTS: Bony structures appear demineralized. SOFT TISSUES: Diffuse subcutaneous edema/anasarca, also seen on the prior study. Postsurgical changes involving the anterior pelvic wall, which are most likely related to previous hernia repair. VASCULATURE: 3.5 cm infrarenal abdominal aortic aneurysm, stable in appearance. Atherosclerotic calcification. No evidence of aneurysm rupture. LYMPH NODES: No evidence of diffuse lymphadenopathy. IMPRESSION: - Small right pleural effusion, with adjacent atelectasis versus a small infiltrate in the right lung base. - Otherwise stable findings compared to a 08/05/2016 CT. - Moderate abdominal and pelvic free fluid/ascites again seen, unchanged. This appears complex/loculated, and there is omental infiltration, findings which can be seen in a setting of malignant ascites. Recommend clinical correlation. - Diffuse subcutaneous edema/anasarca. - See above for remaining findings.
--- NOTE | 2016-09-05 09:41 | CP.PCM.HP ---
History of Present Illness - History of Present Illness History of Present Illness: 71 yo female h/o CAD/ischemic CM, recurrent admits for CHF with ascites, presents to ED with several days increasig SOB and abd distension and pain. No n /v, no fever/cills, no dysuria/hematuria. CT abd/pelvis with ascites Present on Admission - Present on Admission Any Indicators Present on Admission: No Review of Systems - Constitutional Constitutional: Malaise - Cardiovascular Cardiovascular: Dyspnea on Exertion - Gastrointestinal Gastrointestinal: Abdominal Pain, Bloating - Musculoskeletal Musculoskeletal: Arthralgias Past Patient History - Infectious Disease Hx of Infectious Diseases: None - Tetanus Immunizations Tetanus Immunization: Unknown - Past Social History Smoking Status: Former Smoker - CARDIAC Hx Cardiac Disorders: Yes ([place] , CAD) Hx Congestive Heart Failure: Yes Hx Hypertension: Yes - PULMONARY Hx Chronic Obstructive Pulmonary Disease (COPD): Yes - NEUROLOGICAL Hx Neurological Disorder: Yes Hx Transient Ischemic Attacks (TIA): Yes - HEENT Hx HEENT Problems: Yes Hx Deafness: Yes - RENAL Hx Chronic Kidney Disease: No - ENDOCRINE/METABOLIC Hx Diabetes Mellitus Type 2: Yes - HEMATOLOGICAL/ONCOLOGICAL Hx Blood Disorders: Yes Hx Cancer: Yes - INTEGUMENTARY Hx Dermatological Problems: Yes (HAS RAYNAUDS' DSE) Other/Comment: MOTTLED LEGS AND ARMS.PT. ON COUMADIN. 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 - MUSCULOSKELETAL/RHEUMATOLOGICAL Hx Musculoskeletal Disorders: Yes Hx Falls: Yes Hx Fractures: Yes (METATARSAL FX) Hx Herniated Disk: Yes Hx Unsteady Gait: Yes - GASTROINTESTINAL Hx Gastrointestinal Disorders: Yes (ENTEROCOLITIS,COLECTOMY,TONSILLECTOMY) Hx Gall Bladder Disease: Yes (CHOLEYCYSTECTOMY) Hx Liver Failure: Yes Other/Comment: history of ascites/ paracenthesis done in the past - GENITOURINARY/GYNECOLOGICAL Hx Genitourinary Disorders: Yes Hx Incontinence: Yes - PSYCHIATRIC Hx Psychophysiologic Disorder: Yes Hx Anxiety: Yes Hx Depression: Yes Hx Substance Use: No - SURGICAL HISTORY Hx Appendectomy: Yes Hx Cholecystectomy: Yes Hx Coronary Stent: Yes (X3) Hx Open Heart Surgery: Yes Hx Orthopedic Surgery: Yes (laminectomy) Other/Comment: Herniated disc repair, partial colectomy, tonsilectomy - ANESTHESIA Hx Anesthesia: No Meds Allergies/Adverse Reactions: Allergies Allergy/AdvReac Type Severity Reaction Status Date / Time adhesive tape Allergy REDNESS Verified 09/04/16 23:36 naproxen Allergy VOMITING Verified 09/04/16 23:36 ciprofloxacin AdvReac ANAPHYLAXIS Verified 09/04/16 23:36 Physical Exam - Constitutional Appears: Cachectic - Head Exam Head Exam: ATRAUMATIC, NORMOCEPHALIC - Eye Exam Eye Exam: EOMI, Normal appearance, PERRL - ENT Exam ENT Exam: Normal Exam - Neck Exam Neck exam: Positive for: Normal Inspection - Respiratory Exam Respiratory Exam: Rales - Cardiovascular Exam Cardiovascular Exam: REGULAR RHYTHM, JVD - GI/Abdominal Exam GI & Abdominal Exam: Distended, Firm, Normal Bowel Sounds - Extremities Exam Additional comments: cyanosis - Neurological Exam Neurological exam: Alert, Oriented x3 - Skin Skin Exam: Cyanosis, Dry Results - Vital Signs Recent Vital Signs: Last Vital Signs Temp 97.5 F L 09/04/16 23:37 Pulse 81 09/05/16 04:51 Resp 17 09/05/16 04:51 BP 109/76 09/05/16 04:51 Pulse Ox 93 L 09/05/16 04:51 - Labs Result Diagrams: 09/05/16 00:30 09/05/16 02:20 Labs: Laboratory Results - last 24 hr 09/05/16 09/05/16 09/05/16 00:30 00:30 02:20 WBC 3.5 L RBC 5.57 Hgb 15.2 Hct 48.1 H MCV 86.4 MCH 27.3 MCHC 31.6 RDW 17.4 H Plt Count 161 MPV 10.1 PT 22.7 H INR 2.10 H APTT 39.2 H Sodium 139 Potassium 4.6 Chloride 102 Carbon Dioxide 29 Anion Gap 13 BUN 15 Creatinine 0.7 Est GFR ( Amer) > 60 Est GFR (Non-Af Amer) > 60 Random Glucose 134 H Calcium 8.0 L Total Bilirubin 0.5 AST 27 ALT 18 Alkaline Phosphatase 139 H Lactate Dehydrogenase 580 Total Creatine Kinase 45 Troponin I 0.01 NT-Pro-B Natriuret Pep 4880 H Total Protein 7.0 Albumin 3.0 Globulin 4.0 Albumin/Globulin Ratio 0.8 L Assessment & Plan (1) Abdominal pain Status: Acute (2) Ascites Status: Acute (3) CHF (congestive heart failure) Status: Acute (4) COPD (chronic obstructive pulmonary disease) Status: Acute (5) Cardiomyopathy Status: Acute (6) Type II diabetes mellitus Status: Acute - Date & Time Date: 09/05/16 Time: 09:25
[2016-09-05] MEDS ORDERED: Potassium Chloride 20 mEq ER Tab PO STA (09:43)
[2016-09-05] MEDS ORDERED: DOBUTamine 500mg/250ml D5W 500 MG/250 ML BAG IV PRN (09:44)
--- NOTE | 2016-09-05 09:46 | RAD ---
HISTORY: pain COMPARISON: 08/13/2016 FINDINGS: LUNGS: No active pulmonary disease. PLEURA: No significant pleural effusion identified, no pneumothorax apparent. CARDIOVASCULAR: Moderate cardiomegaly. Dual lead pacemaker. Sternal wires OSSEOUS STRUCTURES: No significant abnormalities. VISUALIZED UPPER ABDOMEN: Normal. OTHER FINDINGS: None. IMPRESSION: Moderate cardiomegaly. No active disease
[2016-09-05] MEDS: DOBUTamine 500mg/250ml D5W 500 MG/250 ML BAG IV SCH (12:25)
[2016-09-05] MEDS: Digoxin 0.05 mg/mL Elixir 5mL PO SCH (13:48)
--- NOTE | 2016-09-05 18:40 | CARD ---
APPROVED REPORT EKG Measurement Heart Ainf56EAIS [id number] <Conclusion> Demand pacemaker, intrinsic rhythm is A Fib Left posterior fascicular block Inferior infarct, age undetermined Possible Anterior infarct, age undetermined Abnormal ECG
[2016-09-06 06:25] LABS: BASO # 0.01 K/mm3 (0.0-2.0); BASO % 0.3 % (0.0-3.0); EOS % 0.9 % (1.5-5.0); GRAN # 2.44 (1.4-6.5); GRAN % 74.6 % (50.0-68.0); LYMPH # 0.7 (1.2-3.4); LYMPH % 19.9 % (22.0-35.0); MEAN CELL VOLUME 85.7 fL (80.0-105.0); MEAN CORPUSCULAR HEMOGLOBIN 26.2 pg (25.0-35.0); MEAN CORPUSCULAR HGB CONC 30.6 g/dl (31.0-37.0); MEAN PLATELET VOLUME 9.8 fl (7.0-11.0); MONO # 0.1 (0.1-0.6); MONO % 4.3 % (1.0-6.0); PLATELET COUNT 147 10^3/uL (120.0-450.0); RBC 4.96 10^6/uL (3.5-6.1); RED CELL DISTRIBUTION WIDTH 16.9 % (11.5-14.5); WHITE BLOOD COUNT 3.3 10^3/ul (4.5-11.0)
[2016-09-06 06:28] LABS: INR 1.94 (0.93-1.08); PROTHROMBIN TIME 20.9 Seconds (9.9-11.8)
[2016-09-06 07:04] LABS: ALB/GLOB RATIO 0.8 (1.1-1.8); ALBUMIN 2.9 g/dL (3.0-4.8); ALT/SGPT 15 U/L (7-56); AST/SGOT 26 U/L (15-39); BLOOD UREA NITROGEN 17 mg/dL (7-21); CALCIUM 7.8 mg/dL (8.4-10.5); GFR AFRICAN-AMERICAN > 60; GFR NON-AFRICAN AMERICAN > 60; MAGNESIUM 1.7 mg/dL (1.7-2.2)
--- NOTE | 2016-09-06 08:58 | CP.PCM.PN ---
Subjective - Date & Time of Evaluation Date of Evaluation: 09/06/16 Time of Evaluation: 07:30 - Subjective Subjective: No chest pain, No SOB Objective - Vital Signs/Intake and Output Vital Signs (last 24 hours): Temp Pulse Resp BP Pulse Ox 97.8 F 69 20 118/68 91 L 09/06/16 06:00 09/06/16 06:00 09/06/16 06:00 09/06/16 08:00 09/06/16 06:00 Intake and Output: 09/06/16 09/06/16 06:59 18:59 Intake Total 337 Output Total 400 Balance -63 - Medications Medications: Current Medications Digoxin (Lanoxin Elixir Soln) 0.25 mg PO DAILY [facility] Last Admin: 09/05/16 13:48 Dose: 0.25 mg Diphenhydramine HCl (Benadryl) 25 mg PO HS PRN PRN Reason: Insomnia Famotidine (Pepcid) 20 mg PO 1000,2200 [facility] Last Admin: 09/05/16 21:49 Dose: Not Given Furosemide (Lasix) 40 mg IV 0800,1400 [facility] Last Admin: 09/06/16 08:00 Dose: 40 mg Dobutamine HCl/Dextrose (Dobutamine/Dextrose 5% 500mg/250ml) 500 mg in 250 mls @ 5.149 mls/hr IV .Q24H [facility]; 2.5 MCG/KG/MIN PRN Reason: Protocol Last Admin: 09/05/16 12:25 Dose: 5.149 mls/hr Insulin Human Regular (Humulin R Low) 0 units SC HS [facility] PRN Reason: Protocol Risperidone (Risperdal Tab) 0.25 mg PO BID PRN; Protocol PRN Reason: Agitation Last Admin: 09/05/16 17:33 Dose: 0.25 mg - Labs Labs: 09/06/16 05:20 09/06/16 05:20 PT 20.9 Seconds (9.9-11.8) H 09/06/16 05:20 INR 1.94 (0.93-1.08) H 09/06/16 05:20 APTT 39.2 Seconds (23.7-30.8) H 09/05/16 00:30 - Head Exam Head Exam: ATRAUMATIC - Eye Exam Eye Exam: Conjunctival injection - ENT Exam ENT Exam: Mucous Membranes Dry - Neck Exam Neck Exam: Full ROM - Respiratory Exam Respiratory Exam: Clear to Ausculation Bilateral - Cardiovascular Exam Cardiovascular Exam: Irregular Rhythm - GI/Abdominal Exam GI & Abdominal Exam: Distended Assessment and Plan - Assessment and Plan (Free Text) Assessment: 71 yr female with Hx of CMP ( ischemic) admitted wioth Acute decompensated CHF CAD, S/P CABG, pre and post CaBG PTCA T2 DM recurrent ascites S/p multiple large vol abd paracentesis ch. afin On coumadin Cyanosi of lower extremith secondary to low flow state Plan: Continue diuretics.dobutrex, Dig possible ABd paracentesis. monitor lytes and supplement as needed.
--- NOTE | 2016-09-06 09:08 | CP.PCM.PN ---
Subjective - Date & Time of Evaluation Date of Evaluation: 09/06/16 Time of Evaluation: 08:45 - Subjective Subjective: NAD Objective - Vital Signs/Intake and Output Vital Signs (last 24 hours): Temp Pulse Resp BP Pulse Ox 97.8 F 69 20 118/68 91 L 09/06/16 06:00 09/06/16 06:00 09/06/16 06:00 09/06/16 08:00 09/06/16 06:00 Intake and Output: 09/06/16 09/06/16 06:59 18:59 Intake Total 337 Output Total 400 Balance -63 - Medications Medications: Current Medications Digoxin (Lanoxin Elixir Soln) 0.25 mg PO DAILY [facility] Last Admin: 09/05/16 13:48 Dose: 0.25 mg Diphenhydramine HCl (Benadryl) 25 mg PO HS PRN PRN Reason: Insomnia Famotidine (Pepcid) 20 mg PO 1000,2200 [facility] Last Admin: 09/05/16 21:49 Dose: Not Given Furosemide (Lasix) 40 mg IV 0800,1400 [facility] Last Admin: 09/06/16 08:00 Dose: 40 mg Dobutamine HCl/Dextrose (Dobutamine/Dextrose 5% 500mg/250ml) 500 mg in 250 mls @ 5.149 mls/hr IV .Q24H [facility]; 2.5 MCG/KG/MIN PRN Reason: Protocol Last Admin: 09/05/16 12:25 Dose: 5.149 mls/hr Insulin Human Regular (Humulin R Low) 0 units SC HS [facility] PRN Reason: Protocol Magnesium Oxide (Mag-Ox) 400 mg PO BID [facility] Stop: 09/06/16 23:59 Risperidone (Risperdal Tab) 0.25 mg PO BID PRN; Protocol PRN Reason: Agitation Last Admin: 09/05/16 17:33 Dose: 0.25 mg - Labs Labs: 09/06/16 05:20 09/06/16 05:20 PT 20.9 Seconds (9.9-11.8) H 09/06/16 05:20 INR 1.94 (0.93-1.08) H 09/06/16 05:20 APTT 39.2 Seconds (23.7-30.8) H 09/05/16 00:30 - Respiratory Exam Respiratory Exam: Clear to Ausculation Bilateral, NORMAL BREATHING PATTERN - Cardiovascular Exam Cardiovascular Exam: REGULAR RHYTHM - GI/Abdominal Exam GI & Abdominal Exam: Soft, Normal Bowel Sounds - Extremities Exam Extremities Exam: Normal Inspection - Neurological Exam Neurological Exam: Alert, Awake - Skin Skin Exam: Dry, Warm Assessment and Plan (1) Abdominal pain Status: Acute (2) Ascites Status: Acute (3) CHF (congestive heart failure) Status: Acute (4) COPD (chronic obstructive pulmonary disease) Status: Acute (5) Cardiomyopathy Status: Acute (6) Type II diabetes mellitus Status: Acute - Assessment and Plan (Free Text) Plan: continue IV Lasix, dobutrex, hold warfarin pending paracentesis, SW for dc planning
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
[2016-09-06] MEDS: Digoxin 0.05 mg/mL Elixir 5mL PO SCH (10:04)
[2016-09-06] MEDS: Magnesium Oxide 400 mg Tab UD PO SCH ×2 (10:04→17:38)
[2016-09-06] MEDS: Insulin Reg-LOW-Coverage SC SCH (21:54)
[2016-09-07 07:04] LABS: BASO # 0.01 K/mm3 (0.0-2.0); BASO % 0.3 % (0.0-3.0); EOS % 0.8 % (1.5-5.0); GRAN % 73.7 % (50.0-68.0); HEMOGLOBIN 12.1 gm/dL (12.0-16.0); LYMPH # 0.7 (1.2-3.4); LYMPH % 19.3 % (22.0-35.0); MEAN CELL VOLUME 85.2 fL (80.0-105.0); MEAN CORPUSCULAR HEMOGLOBIN 26.4 pg (25.0-35.0); MEAN CORPUSCULAR HGB CONC 30.9 g/dl (31.0-37.0); MEAN PLATELET VOLUME 10.3 fl (7.0-11.0); MONO # 0.2 (0.1-0.6); MONO % 5.9 % (1.0-6.0); PLATELET COUNT 149 10^3/uL (120.0-450.0); RBC 4.59 10^6/uL (3.5-6.1); RED CELL DISTRIBUTION WIDTH 16.6 % (11.5-14.5); WHITE BLOOD COUNT 3.5 10^3/ul (4.5-11.0)
[2016-09-07 07:07] LABS: ALB/GLOB RATIO 0.8 (1.1-1.8); ALBUMIN 2.7 g/dL (3.0-4.8); ALT/SGPT 20 U/L (7-56); AST/SGOT 28 U/L (15-39); BLOOD UREA NITROGEN 17 mg/dL (7-21); CALCIUM 7.6 mg/dL (8.4-10.5); GFR AFRICAN-AMERICAN > 60; GFR NON-AFRICAN AMERICAN > 60; MAGNESIUM 1.8 mg/dL (1.7-2.2)
[2016-09-07] MEDS: DOBUTamine 500mg/250ml D5W 500 MG/250 ML BAG IV SCH ×2 (07:38→20:50)
[2016-09-07] MEDS ORDERED: Potassium Chloride 20 mEq ER Tab PO ONE (08:38)
--- NOTE | 2016-09-07 09:19 | CP.PCM.PN ---
Subjective - Date & Time of Evaluation Date of Evaluation: 09/07/16 Time of Evaluation: 09:15 - Subjective Subjective: NAD, denies cp or sob, no abd pain Objective - Vital Signs/Intake and Output Vital Signs (last 24 hours): Temp Pulse Resp BP Pulse Ox 98.6 F 72 19 127/82 100 09/07/16 06:00 09/07/16 07:38 09/07/16 06:00 09/07/16 08:09 09/07/16 06:00 Intake and Output: 09/07/16 09/07/16 06:59 18:59 Intake Total 301 Output Total 0 Balance 301 - Medications Medications: Current Medications Digoxin (Lanoxin Elixir Soln) 0.25 mg PO DAILY [facility] Last Admin: 09/06/16 10:04 Dose: 0.25 mg Diphenhydramine HCl (Benadryl) 25 mg PO HS PRN PRN Reason: Insomnia Famotidine (Pepcid) 20 mg PO 1000,2200 [facility] Last Admin: 09/06/16 21:59 Dose: 20 mg Furosemide (Lasix) 40 mg IV 0800,1400 [facility] Last Admin: 09/07/16 08:09 Dose: 40 mg Dobutamine HCl/Dextrose (Dobutamine/Dextrose 5% 500mg/250ml) 500 mg in 250 mls @ 5.149 mls/hr IV .Q24H FARI[facility]; 2.5 MCG/KG/MIN PRN Reason: Protocol Last Admin: 09/07/16 07:38 Dose: 5.149 mls/hr Insulin Human Regular (Humulin R Low) 0 units SC HS [facility] PRN Reason: Protocol Last Admin: 09/06/16 21:54 Dose: Not Given Risperidone (Risperdal Tab) 0.25 mg PO BID PRN; Protocol PRN Reason: Agitation Last Admin: 09/05/16 17:33 Dose: 0.25 mg Spironolactone (Aldactone) 25 mg PO BID [facility] - Labs Labs: 09/07/16 05:50 09/07/16 05:50 PT 20.9 Seconds (9.9-11.8) H 09/06/16 05:20 INR 1.94 (0.93-1.08) H 09/06/16 05:20 APTT 39.2 Seconds (23.7-30.8) H 09/05/16 00:30 - Respiratory Exam Respiratory Exam: Clear to Ausculation Bilateral, NORMAL BREATHING PATTERN - Cardiovascular Exam Cardiovascular Exam: REGULAR RHYTHM - GI/Abdominal Exam GI & Abdominal Exam: Distended, Firm, Normal Bowel Sounds - Extremities Exam Extremities Exam: Normal Inspection - Neurological Exam Neurological Exam: Alert, Awake, Oriented x3 - Skin Skin Exam: Dry, Warm Assessment and Plan (1) Abdominal pain Status: Resolved (2) Ascites Status: Acute (3) CHF (congestive heart failure) Status: Acute (4) COPD (chronic obstructive pulmonary disease) Status: Acute (5) Cardiomyopathy Status: Acute (6) Type II diabetes mellitus Status: Acute - Assessment and Plan (Free Text) Plan: await abd paracentesis.SW for dc planning
[2016-09-07] MEDS: Digoxin 0.05 mg/mL Elixir 5mL PO SCH (09:37)
--- NOTE | 2016-09-07 10:05 | PN ---
DATE: 09/07/2016 REASON FOR CONSULTATION: Followup abdominal pain, decompensated congestive heart failure, and ascites. SUBJECTIVE: The patient is a 71-year-old female. The patient is lying flat in the bed. Denies any chest pain, but complains of mild abdominal discomfort. PHYSICAL EXAMINATION: GENERAL: Not in apparent distress, lying comfortably in the bed. VITAL SIGNS: Temperature is afebrile, heart rate is 72, and blood pressure 127/82. HEENT: PERRLA. Extraocular muscles are intact. NECK: Supple. No carotid bruits or thyromegaly. HEART: S1 and S2. Regular. CHEST: Clear to auscultation. ABDOMEN: Soft. EXTREMITIES: Clubbing and cyanosis negative. LABORATORY DATA: Blood workup is follows: WBC 3.5, hemoglobin 12.1, hematocrit 39.1, and platelet count 149. Chemistry shows sodium 135, potassium 3.8, chloride 98, carbon dioxide 32, anion gap of 9, BUN 17, creatinine 0.7, total protein 6.3, albumin 2.0, and albumin-globulin ratio is 0.8. IMPRESSION: Protein-calorie malnutrition, which is not present on admission, decompensated congestive heart failure, acute on chronic secondary systolic dysfunction, cardiomyopathy, ischemic, coronary artery disease, status post inferior wall myocardial infarction , history of multiple percutaneous transluminal coronary angioplasties, status post coronary artery bypass graft done at [facility], status post mitral valve repair, status post automatic implantable cardioverter-defibrillator at [facility], history of paroxysmal atrial fibrillation on anticoagulation, ascites, decompensated congestive heart failure, diabetes, history of recurrent hypoglycemia, and cardiac cachexia. RECOMMENDATIONS: Continue digoxin. Continue Lasix. Continue Dobutrex. Everything for abdominal paracentesis. Once abdominal paracentesis is done, then we will resume back the Coumadin. History of multiple abdominal paracenteses. Increase nutrition support. We will follow you. Continue potassium supplement. Thank you Dr. Valdez for providing the opportunity in taking care of the patient, Chasidy Alicia. Tonia Quinteros MD [facility] # [id number]
--- NOTE | 2016-09-07 14:33 | US ---
PROCEDURE: Ultrasound guided paracentesis. HISTORY: Cardiogenic cirrhosis. Recurrent ascites with abdominal pain and distension. Needs paracentesis. PHYSICIAN(S): Yaw Leonard MD. TECHNIQUE: The relative risks and indications for the procedure were explained to the patient and informed written consent obtained. Sonography of the abdomen was performed in a supine position. This revealed a small to moderate amount of non-loculated ascites, greatest in the right mid abdomen. A puncture site was selected and the area was prepped and draped in the usual sterile fashion. 1% Xylocaine was used to anesthetize the skin and soft tissues. A 7 Wolof paracentesis catheter was trocared into the right mid abdomenand 4000 cc of clear, straw-colored fluid aspirated. No labs were sent. IMPRESSION: Ultrasound-guided paracentesis in the right mid abdomen. 4000 cc of fluid were aspirated.
[2016-09-07] MEDS: Insulin Reg-LOW-Coverage SC SCH (21:52)
[2016-09-08 05:55] LABS: BLOOD UREA NITROGEN 20 mg/dL (7-21); CALCIUM 7.9 mg/dL (8.4-10.5); GFR AFRICAN-AMERICAN > 60; GFR NON-AFRICAN AMERICAN > 60
--- NOTE | 2016-09-08 09:11 | CP.PCM.PN ---
Subjective - Date & Time of Evaluation Date of Evaluation: 09/08/16 Time of Evaluation: 09:00 - Subjective Subjective: NAD Objective - Vital Signs/Intake and Output Vital Signs (last 24 hours): Temp Pulse Resp BP Pulse Ox 97.8 F 80 19 115/72 95 09/08/16 05:53 09/08/16 05:53 09/08/16 05:53 09/08/16 08:43 09/08/16 05:53 Intake and Output: 09/08/16 09/08/16 06:59 18:59 Intake Total 1203 Output Total 300 Balance 903 - Medications Medications: Current Medications Digoxin (Lanoxin Elixir Soln) 0.25 mg PO DAILY [facility] Last Admin: 09/07/16 09:37 Dose: 0.25 mg Diphenhydramine HCl (Benadryl) 25 mg PO HS PRN PRN Reason: Insomnia Last Admin: 09/07/16 22:53 Dose: 25 mg Famotidine (Pepcid) 20 mg PO 1000,2200 [facility] Last Admin: 09/07/16 22:53 Dose: 20 mg Furosemide (Lasix) 80 mg PO DAILY [facility] Insulin Human Regular (Humulin R Low) 0 units SC HS [facility] PRN Reason: Protocol Last Admin: 09/07/16 21:52 Dose: Not Given Spironolactone (Aldactone) 25 mg PO BID [facility] Last Admin: 09/07/16 17:33 Dose: 25 mg Warfarin Sodium (Coumadin) 2.5 mg PO 1800 [facility] PRN Reason: Protocol - Labs Labs: 09/07/16 05:50 09/08/16 04:30 PT 20.9 Seconds (9.9-11.8) H 09/06/16 05:20 INR 1.94 (0.93-1.08) H 09/06/16 05:20 APTT 39.2 Seconds (23.7-30.8) H 09/05/16 00:30 - Respiratory Exam Respiratory Exam: Clear to Ausculation Bilateral, NORMAL BREATHING PATTERN - Cardiovascular Exam Cardiovascular Exam: REGULAR RHYTHM - GI/Abdominal Exam GI & Abdominal Exam: Soft, Normal Bowel Sounds - Extremities Exam Extremities Exam: Normal Inspection - Neurological Exam Neurological Exam: Alert, Awake - Skin Skin Exam: Dry, Warm Assessment and Plan (1) Abdominal pain Status: Resolved (2) Ascites Status: Acute (3) CHF (congestive heart failure) Status: Acute (4) COPD (chronic obstructive pulmonary disease) Status: Acute (5) Cardiomyopathy Status: Acute (6) Type II diabetes mellitus Status: Acute - Assessment and Plan (Free Text) Plan: DC IV dobutamine, DC IV Lasix to PO, restart warfarin, check labs in am, SW for dc planning
[2016-09-08] MEDS: Digoxin 0.05 mg/mL Elixir 5mL PO SCH (09:26)
--- NOTE | 2016-09-08 13:37 | PN ---
DATE: 09/08/2016 REASON FOR CONSULTATION: Follow up decompensated congestive heart failure,ischemic cardiomyopathy, ascites, status post abdominal paracentesis. SUBJECTIVE: A 71-year-old female lying in the bed. Denies any chest pain, shortness of breath, any palpitation. OBJECTIVE: GENERAL: Lying comfortable in the bed. Eating Jell-O, awaiting for the breakfast. Complained that she is hungry and wants to eat something. VITAL SIGNS: As follows, temperature afebrile, heart rate 80 and blood pressure 110/62. HEENT: PERRLA. Extraocular muscles intact. NECK: Supple. No carotid bruit. No thyromegaly. CHEST: Clear to auscultation. HEART: S1 and S2, regular. ABDOMEN: Soft. EXTREMITIES: Clubbing and cyanosis negative. LABORATORY DATA: Blood workup as follows: WBC 3.5, hemoglobin 12.1, hematocrit 39.1, and platelet count 149. Chemistry shows sodium 134, potassium 4.5, chloride 90, carbon dioxide 30, anion gap of 11, BUN 20, creatinine 0.8, random sugar 148, calcium 7.9. INR 1.94 as of 09/06/2016. IMPRESSION: A 71-year-old female with past medical history significant for ischemic cardiomyopathy, coronary artery disease, coronary artery bypass graft, status post mitral valve repair, status post automatic implantable cardiovascular defibrillator, chronic atrial fibrillation, admitted with decompensated congestive heart failure, [id number] secondary to systolic dysfunction,secondary to ischemic cardiomyopathy. Started on Dobutrex, IV Lasix. Yesterday, the patient had large volume abdominal paracentesis 4 L clear fluids were drained, feeling much comfortable. He was on Coumadin, now on hold for abdominal paracentesis. RECOMMENDATIONS: We will restart Coumadin. Continue diuretics. May consider long-term Dobutrex as it was beneficial for the patient. We will discus with Dr. Valdez. We will repeat the blood workup in the morning including calcium phosphate, CBC, CMP, and PT/INR. Also , we will refer counter caser for home Dobutrex. We will follow with you. Thank you Dr. Valdez for providing the opportunity in taking care of Chasidy Alicia. Mohammad Aldair, MD
[2016-09-09 06:10] VITALS: PULSE 80; RESP 18; TEMP 98.6; O2SAT 99
[2016-09-09 06:52] LABS: BASO # 0.01 K/mm3 (0.0-2.0); BASO % 0.3 % (0.0-3.0); HEMOGLOBIN 12.4 gm/dL (12.0-16.0); LYMPH # 0.8 (1.2-3.4); LYMPH % 25.2 % (22.0-35.0); MEAN CELL VOLUME 84.5 fL (80.0-105.0); MEAN CORPUSCULAR HEMOGLOBIN 25.9 pg (25.0-35.0); MEAN CORPUSCULAR HGB CONC 30.7 g/dl (31.0-37.0); MEAN PLATELET VOLUME 10.2 fl (7.0-11.0); MONO # 0.2 (0.1-0.6); MONO % 5.5 % (1.0-6.0); PLATELET COUNT 141 10^3/uL (120.0-450.0); RBC 4.78 10^6/uL (3.5-6.1); RED CELL DISTRIBUTION WIDTH 16.4 % (11.5-14.5); WHITE BLOOD COUNT 3.1 10^3/ul (4.5-11.0)
[2016-09-09 07:05] LABS: INR 1.17 (0.93-1.08); PROTHROMBIN TIME 12.6 Seconds (9.9-11.8)
[2016-09-09 07:19] LABS: ALB/GLOB RATIO 0.8 (1.1-1.8); ALBUMIN 2.7 g/dL (3.0-4.8); ALT/SGPT 22 U/L (7-56); AST/SGOT 25 U/L (15-39); BLOOD UREA NITROGEN 21 mg/dL (7-21); GFR AFRICAN-AMERICAN > 60; GFR NON-AFRICAN AMERICAN > 60; MAGNESIUM 1.7 mg/dL (1.7-2.2)
[2016-09-09] MEDS: Digoxin 0.05 mg/mL Elixir 5mL PO SCH (09:28)
[2016-09-09 09:32] VITALS: BP 117/38
[2016-09-09] MEDS ORDERED: Magnesium Oxide 400 mg Tab UD PO SCH (10:00)
--- NOTE | 2016-09-09 10:40 | PN ---
DATE: 09/09/2016 REASON FOR CONSULTATION: Followup decompensated congestive heart failure, ischemic cardiomyopathy, ascites, and status post abdominal paracentesis. SUBJECTIVE: Denies any chest pain, shortness of breath, any palpitations, and sitting under observation. PHYSICAL EXAMINATION: GENERAL: Sitting on the bed, awaiting for breakfast. Denies any chest pain, not in apparent distress. VITAL SIGNS: Temperature afebrile, heart rate 80, and blood pressure 103/65. HEENT: PERRLA. Extraocular muscles intact. NECK: Supple. No carotid bruit or thyromegaly. CHEST: Clear to auscultation HEART: S1 and S2 regular. ABDOMEN: Soft. EXTREMITIES: Clubbing and cyanosis negative. LABORATORY DATA: Blood workup as follows; WBC 3.1, hemoglobin 12.4, hematocrit 40.2, and platelet count 141. Chemistries show sodium 134, potassium 4.4, chloride 90, carbon dioxide 30, anion gap 10, BUN 21, and creatinine 0.8. Total protein , albumin 2.7, and albumin-globulin ratio 0.8. IMPRESSION: A 71-year-old female with past medical history significant for coronary artery disease, status post coronary artery bypass graft, status post multiple percutaneous transluminal coronary angioplasty and post coronary artery bypass graft, status post automatic implantable cardioverter-defibrillator at [facility], status post mitral valve replacement, ischemic cardiomyopathy, decreased left ventricular function, chronic atrial fibrillation, on anticoagulation, patient with decompensated congestive heart failure, acute on chronic systolic dysfunction secondary to ischemic cardiomyopathy, end-stage cardiomyopathy, recurrent ascites, and status post abdominal paracentesis large volume 4 L removed. RECOMMENDATIONS: Coumadin just started with INR 1.14. Continue anticoagulation. We will give 4 mg today, continue magnesium oxide supplementation, continue spironolactone, continue digoxin, and consider long-term Dobutrex infusion at home. We will follow with you. We will give 4 mg of Coumadin today. We will give 4 mg stat now for morning dose if the patient can be discharged and Coumadin level build up 2.5 from tomorrow. We will check PT/INR in the morning Thank you Dr. Valdez for providing the opportunity in taking care of patient, Chasidy Alicia. Tonia Quinteros MD
--- NOTE | 2016-09-09 11:01 | CP.PCM.DIS ---
Provider - Provider Date of Admission: 09/06/16 09:04 Attending physician: Garcia Valdez JD, MD Primary care physician: Garcia Valdez JD, MD Time Spent in preparation of Discharge (in minutes): 30 Diagnosis - Discharge Diagnosis (1) Abdominal pain Status: Resolved (2) Ascites Status: Resolved (3) CHF (congestive heart failure) Status: Chronic (4) COPD (chronic obstructive pulmonary disease) Status: Chronic (5) Cardiomyopathy Status: Chronic (6) Type II diabetes mellitus Status: Chronic Hospital Course - Lab Results Lab Results: Most Recent Lab Values WBC 3.1 10^3/ul (4.5-11.0) L 09/09/16 06:15 RBC 4.78 10^6/uL (3.5-6.1) 09/09/16 06:15 Hgb 12.4 gm/dL (12.0-16.0) 09/09/16 06:15 Hct 40.4 % (36.0-48.0) 09/09/16 06:15 MCV 84.5 fL (80.0-105.0) 09/09/16 06:15 MCH 25.9 pg (25.0-35.0) 09/09/16 06:15 MCHC 30.7 g/dl (31.0-37.0) L 09/09/16 06:15 RDW 16.4 % (11.5-14.5) H 09/09/16 06:15 Plt Count 141 10^3/uL (120.0-450.0) 09/09/16 06:15 MPV 10.2 fl (7.0-11.0) 09/09/16 06:15 Gran % 68.0 % (50.0-68.0) 09/09/16 06:15 Lymph % (Auto) 25.2 % (22.0-35.0) 09/09/16 06:15 Davidson % (Auto) 5.5 % (1.0-6.0) 09/09/16 06:15 Eos % (Auto) 1.0 % (1.5-5.0) L 09/09/16 06:15 Baso % (Auto) 0.3 % (0.0-3.0) 09/09/16 06:15 Gran # 2.10 (1.4-6.5) 09/09/16 06:15 Lymph # 0.8 (1.2-3.4) L 09/09/16 06:15 Davidson # 0.2 (0.1-0.6) 09/09/16 06:15 Eos # 0.0 (0.0-0.7) 09/09/16 06:15 Baso # 0.01 K/mm3 (0.0-2.0) 09/09/16 06:15 PT 12.6 Seconds (9.9-11.8) H 09/09/16 06:15 INR 1.17 (0.93-1.08) H 09/09/16 06:15 APTT 39.2 Seconds (23.7-30.8) H 09/05/16 00:30 Sodium 134 mmol/L (132-148) 09/09/16 06:15 Potassium 4.4 mmol/L (3.6-5.0) 09/09/16 06:15 Chloride 98 mmol/L (95-110) 09/09/16 06:15 Carbon Dioxide 30 mmol/L (21-33) 09/09/16 06:15 Anion Gap 10 (10-20) 09/09/16 06:15 BUN 21 mg/dL (7-21) 09/09/16 06:15 Creatinine 0.8 mg/dL (0.5-1.4) 09/09/16 06:15 Est GFR ( Amer) > 60 09/09/16 06:15 Est GFR (Non-Af Amer) > 60 09/09/16 06:15 POC Glucose (mg/dL) 159 mg/dL (65-110) H 09/08/16 21:41 Random Glucose 166 mg/dL (70-110) H 09/09/16 06:15 Calcium 8.0 mg/dL (8.4-10.5) L 09/09/16 06:15 Phosphorus 3.1 mg/dL (2.5-4.5) 09/09/16 06:15 Magnesium 1.7 mg/dL (1.7-2.2) 09/09/16 06:15 Total Bilirubin 0.5 mg/dL (0.2-1.3) 09/09/16 06:15 AST 25 U/L (15-39) 09/09/16 06:15 ALT 22 U/L (7-56) 09/09/16 06:15 Alkaline Phosphatase 111 U/L (38-133) 09/09/16 06:15 Lactate Dehydrogenase 580 U/L (333-699) 09/05/16 02:20 Total Creatine Kinase 45 U/L (35-230) 09/05/16 02:20 Troponin I 0.01 ng/mL 09/05/16 02:20 NT-Pro-B Natriuret Pep 4880 pg/mL (0-450) H 09/05/16 02:20 Total Protein 6.1 g/dL (5.8-8.3) 09/09/16 06:15 Albumin 2.7 g/dL (3.0-4.8) L 09/09/16 06:15 Globulin 3.4 gm/dL 09/09/16 06:15 Albumin/Globulin Ratio 0.8 (1.1-1.8) L 09/09/16 06:15 TSH 3rd Generation 2.8 MIU/ml (0.46-4.68) 09/06/16 05:20 Discharge Exam - Head Exam Head Exam: ATRAUMATIC - Respiratory Exam Respiratory Exam: Clear to PA & Lateral, NORMAL BREATHING PATTERN - Cardiovascular Exam Cardiovascular Exam: REGULAR RHYTHM, Systolic Murmur - GI/Abdominal Exam GI & Abdominal Exam: Normal Bowel Sounds, Soft - Extremities Exam Extremities exam: normal inspection - Neurological Exam Neurological exam: Alert, Oriented x3 - Skin Skin Exam: Dry, Warm Discharge Plan - Discharge Medications Prescriptions: Spironolactone [Aldactone] 25 mg PO BID #60 tab Magnesium Oxide [Mag-Ox] 400 mg PO BID #28 tab Famotidine [Pepcid] 20 mg PO 1000,2200 #60 tab - Follow Up Plan Condition: STABLE Disposition: HOME/ ROUTINE Instructions: Chest Pain (ED)
== END 2016-09-09 11:15 | disposition home or self-care (01) | DRG 292 ==
LOC: ED 23:23 → EROBSV 23:55 → INTOOBSV 23:55 → OBSVTOIN 23:55 → ERH 09-05 07:07 → 2RNO 09-05 12:48 → OBSVTOIN 09-06 09:04
PROVIDERS: ADMIT Internal Medicine; ATTEND Internal Medicine
PROC: 0W9G3ZZ Drainage of Peritoneal Cavity, Percutaneous Approach (ICD-10-PCS; principal; 2016-09-07 11:00)
DX: I11.0 Hypertensive heart disease with heart failure (principal); I50.23 Acute on chronic systolic (congestive) heart failure; R18.8 Other ascites; R64 Cachexia; I25.5 Ischemic cardiomyopathy; J44.9 Chronic obstructive pulmonary disease, unspecified; I48.0 Paroxysmal atrial fibrillation; I25.10 Atherosclerotic heart disease of native coronary artery without angina pectoris; I48.2 Chronic atrial fibrillation; E78.5 Hyperlipidemia, unspecified; E11.9 Type 2 diabetes mellitus without complications; I73.00 Raynaud's syndrome without gangrene; I25.2 Old myocardial infarction; Z79.01 Long term (current) use of anticoagulants; Z86.73 Personal history of transient ischemic attack (TIA), and cerebral infarction without residual deficits; Z95.810 Presence of automatic (implantable) cardiac defibrillator; Z95.1 Presence of aortocoronary bypass graft; Z95.5 Presence of coronary angioplasty implant and graft; Z95.2 Presence of prosthetic heart valve; Z87.891 Personal history of nicotine dependence

== ENCOUNTER 2016-09-15 20:38 | Emergency (ER) | payer MEDICARE, OTHER ==
[2016-09-15 20:38] VITALS: PULSE 86
[2016-09-15 20:52] VITALS: BMI 23.0
--- NOTE | 2016-09-15 21:02 | ED PDOC ---
Arrival/HPI - General Chief Complaint: Weakness/Neurological Deficit Time Seen by Provider: 09/15/16 20:48 Historian: Patient - History of Present Illness Narrative History of Present Illness (Text): 09/15/16 21:01 71-year-old female with a history of coronary artery disease, multiple PTCAs, defibrillator, ischemic cardiomyopathy, chronic A. fib on anticoagulation, decompensated CHF, and recurrent ascites, presents to the emergency department complaining of anxiety and weakness. States that she started feeling anxious and weak after witnessing a verbal altercation between her grandson and his girlfriend. Denies fever, chills, headache, dizziness, chest pain, shortness of breath, nausea, vomiting, diarrhea, or any other complaints at this time. Time/Duration: Prior to Arrival Symptom Onset: Sudden Symptom Course: Unchanged Severity Level: Mild Activities at Onset: Light Past Medical History - Provider Review Nursing Documentation Reviewed: Yes - Infectious Disease Hx of Infectious Diseases: None - Tetanus Immunization Tetanus Immunization: Unknown - Reproductive Menopause: Yes - Cardiac Hx Cardiac Disorders: Yes ([place] , CAD) Hx Congestive Heart Failure: Yes Hx Hypertension: Yes - Pulmonary Hx Chronic Obstructive Pulmonary Disease (COPD): Yes - Neurological Hx Neurological Disorder: Yes Hx Transient Ischemic Attacks (TIA): Yes - HEENT Hx HEENT Disorder: Yes Hx Deafness: Yes - Renal Hx Renal Disorder: No - Endocrine/Metabolic Hx Diabetes Mellitus Type 2: Yes - Hematological/Oncological Hx Blood Disorders: Yes Hx Cancer: Yes - Integumentary Hx 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 ON COUMADIN. 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 - Musculoskeletal/Rheumatological Hx Musculoskeletal Disorders: Yes Hx Falls: Yes Hx Fractures: Yes (METATARSAL FX) Hx Herniated Disk: Yes Hx Unsteady Gait: Yes - Gastrointestinal Hx Gastrointestinal Disorders: Yes (ENTEROCOLITIS,COLECTOMY,TONSILLECTOMY) Hx Gall Bladder Disease: Yes (CHOLEYCYSTECTOMY) Hx Liver Failure: Yes Other/Comment: history of ascites/ paracenthesis done in the past - Genitourinary/Gynecological Hx Genitourinary Disorders: Yes Hx Incontinence: Yes - Psychiatric Hx Psychophysiologic Disorder: Yes Hx Anxiety: Yes Hx Depression: Yes Hx Substance Use: Yes - Surgical History Hx Appendectomy: Yes Hx Cholecystectomy: Yes Hx Coronary Stent: Yes (X3) Hx Open Heart Surgery: Yes Hx Orthopedic Surgery: Yes (laminectomy) Other/Comment: Herniated disc repair, partial colectomy, tonsilectomy - Anesthesia Hx Anesthesia: No - Suicidal Assessment Feels Threatened In Home Enviroment: No Family/Social History - Physician Review Nursing Documentation Reviewed: Yes Family/Social History: No Known Family HX Smoking Status: Former Smoker Hx Alcohol Use: Yes Hx Substance Use: Yes Hx Substance Use Treatment: No Allergies/Home Meds Allergies/Adverse Reactions: Allergies adhesive tape Allergy (Verified 09/15/16 20:50) REDNESS naproxen Allergy (Verified 09/15/16 20:50) VOMITING ciprofloxacin Adverse Reaction (Verified 09/15/16 20:50) ANAPHYLAXIS Home Medications: Home Meds Medication Instructions Recorded Confirmed Simvastatin 20 mg PO DAILY 04/25/16 09/15/16 DiphenhydrAMINE [Benadryl] 2 tab PO HS 06/08/16 09/15/16 Physical Exam - Physical Exam Narrative Physical Exam (Text): - Review of Systems Constitutional: Present: Fatigue absent: Weight Change, Fevers Eyes: Normal ENT: Normal Respiratory: Normal absent: SOB, Cough, Sputum Cardiovascular: Normal absent: Chest pain, Palpitations, Syncope Gastrointestinal: Normal absent: Abdominal pain, Diarrhea, Nausea, Vomiting Genitourinary: Normal. absent: Dysuria, Frequency, Hematuria Musculoskeletal: Normal. absent: Arthralgias, Back Pain, Neck Pain Skin: Normal Neurological: Normal absent: Focal Weakness Endocrine: Normal Hemo/Lymphatic: Normal Psychiatric: Anxiety - Physical exam Patient appears age appropriate, speaking full sentences without difficulty. - Systems Exam Head: Present: Atraumatic, Normocephalic Pupils: Present: PERRL Extraocular Muscles: Present: EOMI Conjunctiva: Present: Normal Mouth: Present: Moist Mucous Membranes Neck: Present: Normal Range of Motion. No: MIDLINE TENDERNESS, Paraspinal Tenderness Respiratory/Chest: Present: Clear to Auscultation, Good Air Exchange. No: Respiratory Distress, Accessory Muscle Use, Tachypnic Cardiovascular: Present: Regular Rate and Rhythm, Normal S1, S2, Peripheral Pulses Present. No: Murmurs Abdomen: Present: Normal Bowel Sounds, No: Tenderness, Peritoneal Signs, Rebound, Guarding, Distention Back: Present: Normal Inspection. No: Midline Tenderness, Paraspinal Tenderness Upper Extremity: Present: Normal Inspection. No: Cyanosis, Edema Lower Extremity: Present: Normal Inspection. No: Edema Neurological: Present: GCS=15, Speech Normal, cranial nerves II through XII fully intact with no cerebellar abnormality, neuro-sensory fully intact. No focal neurological deficits. Skin: Present: Warm, Dry, Normal Color. No: Rashes Lymphatic: Present: OX3, NI, NC Psychiatric: Present: Alert, not anxious Vital Signs Temp Pulse Resp BP Pulse Ox 09/15/16 20:51 98.0 F 73 18 117/81 96 Temperature: Afebrile Blood Pressure: Normal Pulse: Regular Respiratory Rate: Normal Appearance: Positive for: Well-Appearing, Non-Toxic, Comfortable Pain Distress: None Mental Status: No: Agitated, Lethargic Medical Decision Making ED Course and Treatment: 09/15/16 21:31 Impression: A 71 year old female who presents to the emergency department complaining of feeling weak and anxious after witness a verbal altercation between her grandson and his girlfriend. No acute finding on physical exam. Plan: -- Labs, cardiac enzymes -- Chest X-ray -- Blood culture -- Urinalysis -- Reassess and disposition Progress Notes: 09/16/16 00:38 Chest x-ray shows mild cardiomegaly, no effusions, no infiltrates. No changes versus previous. Interpreted by me. 09/16/16 01:13 K 5.5 pt in no distress and states she feels well. denies any complaints. case dw Dr. Garcia Valdez in detail. He states that pt was recently started on aldactone. States to instruct pt to stop taking the aldactone and to dc her home with outpatient f/u. States not to give pt any antihyperK meds. pt aware of and agrees with plan states she feels comfortable and safe being dc'd home Pt states she understands to return to the ER right away for new or worsening symptoms or for inability to f/u with PMD or specialist as instructed. Patient states that she fully agrees with and understands discharge instructions. States that she agrees with the plan and disposition. Verbalized and repeated discharge instructions and plan. I have given the patient opportunity to ask any additional questions. - Lab Interpretations Lab Results: 09/15/16 22:18 09/15/16 23:17 Lab Results 09/15/16 23:17: Sodium 134, Potassium 5.5 H, Chloride 97 L, Carbon Dioxide 27, Anion Gap 16, BUN 17, Creatinine 0.8, Est GFR ( Amer) > 60, Est GFR (Non- Af Amer) > 60, Random Glucose 133 H, Calcium 9.1, Total Bilirubin 0.8, AST 25, ALT 23, Alkaline Phosphatase 134 H, Lactate Dehydrogenase 569, Total Creatine Kinase 32 L, Troponin I 0.02 D, Total Protein 7.6, Albumin 3.5, Globulin 4.1, Albumin/Globulin Ratio 0.9 L 09/15/16 22:18: WBC 4.3 L D, RBC 5.32, Hgb 14.4, Hct 44.8, MCV 84.2, MCH 27.1, MCHC 32.1, RDW 16.1 H, Plt Count 166, MPV 9.7, Gran % 67.7, Lymph % (Auto) 24.4 , [place] % (Auto) 7.0 H, Eos % (Auto) 0.7 L, Baso % (Auto) 0.2, Gran # 2.91, Lymph # 1.1 L, Wayne # 0.3, Eos # 0.0, Baso # 0.01 - RAD Interpretation Radiology Orders: 09/15/16 21:13 CHEST PORTABLE [RAD] Stat - Scribe Statement The provider has reviewed the documentation as recorded by the Scribe Doug Cope Provider Attestation: Provider Scribe Attestation: All medical record entries made by the Scribe were at my direction and personally dictated by me. I have reviewed the chart and agree that the record accurately reflects my personal performance of the history, physical exam, medical decision making, and the department course for this patient. I have also personally directed, reviewed, and agree with the discharge instructions and disposition. Disposition/Present on Arrival - Present on Arrival Any Indicators Present on Arrival: No History of DVT/PE: No History of Uncontrolled Diabetes: No Urinary Catheter: No History of Decub. Ulcer: No History Surgical Site Infection Following: None - Disposition Have Diagnosis and Disposition been Completed?: Yes Diagnosis: Hyperkalemia Disposition: HOME/ ROUTINE Disposition Time: :16 Patient Plan: Discharge Patient Problems: Current Active Problems Problem Status Onset Hyperkalemia Acute Condition: GOOD Discharge Instructions (ExitCare): Hyperkalemia (ED) Additional Instructions: PLEASE RETURN TO THE EMERGENCY DEPARTMENT FOR NEW OR WORSENING SYMPTOMS. RETURN RIGHT AWAY IF YOU CANNOT FOLLOW UP WITH YOUR PRIMARY CARE DOCTOR, CLINIC, OR SPECIALIST IN 1-2 DAYS. PLEASE STOP TAKING THE ALDACTONE MEDICINE Referrals: Garcia Valdez JD, MD [Staff Provider] - Follow up with primary Forms: [employer] [employer] (Romansh)
[2016-09-15 22:37] LABS: BASO # 0.01 K/mm3 (0.0-2.0); BASO % 0.2 % (0.0-3.0); EOS % 0.7 % (1.5-5.0); GRAN # 2.91 (1.4-6.5); GRAN % 67.7 % (50.0-68.0); HEMOGLOBIN 14.4 g/dL (12.0-16.0); LYMPH # 1.1 (1.2-3.4); LYMPH % 24.4 % (22.0-35.0); MEAN CELL VOLUME 84.2 fl (80.0-105.0); MEAN CORPUSCULAR HEMOGLOBIN 27.1 pg (25.0-35.0); MEAN CORPUSCULAR HGB CONC 32.1 g/dl (31.0-37.0); MEAN PLATELET VOLUME 9.7 fl (7.0-11.0); MONO # 0.3 (0.1-0.6); PLATELET COUNT 166 10^3/uL (120.0-450.0); RBC 5.32 10^6/uL (3.5-6.1); RED CELL DISTRIBUTION WIDTH 16.1 % (11.5-14.5); WHITE BLOOD COUNT 4.3 10^3/ul (4.5-11.0)
[2016-09-15 23:38] LABS: ALB/GLOB RATIO 0.9 (1.1-1.8); ALBUMIN 3.5 g/dL (3.0-4.8); ALT/SGPT 23 U/L (7-56); AST/SGOT 25 U/L (15-39); BLOOD UREA NITROGEN 17 mg/dL (7-21); CALCIUM 9.1 mg/dL (8.4-10.5); GFR AFRICAN-AMERICAN > 60; GFR NON-AFRICAN AMERICAN > 60
[2016-09-15 23:49] LABS: TROPONIN I 0.02 ng/mL
[2016-09-16] MEDS ORDERED: Sodium Chloride 0.9% 500 ML IV STA (01:00)
[2016-09-16] MEDS ORDERED: Dextrose 50% SYRINGE Inj (50 ml) IVP STA (01:00)
[2016-09-16] MEDS ORDERED: Sodium Bicarbonate (8.4%) 50 Meq Syringe IVP ONE (01:00)
[2016-09-16] MEDS ORDERED: Insulin Regular 1 UNITS/0.01 ML ML IV STA (01:00)
[2016-09-16 02:29] VITALS: BP 120/87; PULSE 18; TEMP 98.6; O2SAT 99
[2016-09-16 02:35] VITALS: RESP 18
--- NOTE | 2016-09-16 09:22 | RAD ---
HISTORY: cough COMPARISON: 09/05/2016 FINDINGS: LUNGS: No active pulmonary disease. PLEURA: No significant pleural effusion identified, no pneumothorax apparent. CARDIOVASCULAR: Moderate cardiomegaly. Dual lead pacemaker OSSEOUS STRUCTURES: Sternal wires VISUALIZED UPPER ABDOMEN: Normal. OTHER FINDINGS: None. IMPRESSION: No active disease.
== END 2016-09-16 02:35 | disposition home or self-care (01) ==
LOC: ED 20:38
DX: E87.5 Hyperkalemia (principal); I25.10 Atherosclerotic heart disease of native coronary artery without angina pectoris; I48.91 Unspecified atrial fibrillation; Z79.01 Long term (current) use of anticoagulants; I25.5 Ischemic cardiomyopathy

== ENCOUNTER 2016-10-26 15:09 | Inpatient (IN) | payer MEDICARE, OTHER ==
[2016-10-26 15:28] VITALS: BMI 26.5
--- NOTE | 2016-10-26 15:39 | ED PDOC ---
Arrival/HPI - General Chief Complaint: Abdominal Pain Time Seen by Provider: 10/26/16 15:22 Historian: Patient - History of Present Illness Narrative History of Present Illness (Text): 10/26/16 15:28 A 71 year old female, whose past medical history includes coronary artery disease, multiple PTCAs, defibrillator, ischemic cardiomyopathy, chronic A. fib on anticoagulation, decompensated CHF, and recurrent ascites, presents to the emergency department complaining of abdominal pain since yesterday. Patient notes experiencing shortness of breath associated with abdominal pain, but denies of any nausea, vomiting, diarrhea, visual changes, headache, or any other complaints. No PMD Time/Duration: 24 hours Symptom Onset: Sudden Symptom Course: Unchanged Past Medical History - Provider Review Nursing Documentation Reviewed: Yes - Infectious Disease Hx of Infectious Diseases: None - Tetanus Immunization Tetanus Immunization: Unknown - Reproductive Menopause: Yes - Cardiac Hx Cardiac Disorders: Yes ([place] , CAD) Hx Congestive Heart Failure: Yes Hx Hypertension: Yes - Pulmonary Hx Chronic Obstructive Pulmonary Disease (COPD): Yes - Neurological Hx Neurological Disorder: Yes Hx Transient Ischemic Attacks (TIA): Yes - HEENT Hx HEENT Disorder: Yes Hx Deafness: Yes - Renal Hx Renal Disorder: No - Endocrine/Metabolic Hx Diabetes Mellitus Type 2: Yes - Hematological/Oncological Hx Blood Disorders: Yes Hx Cancer: Yes - Integumentary Hx 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 ON COUMADIN. 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 - Musculoskeletal/Rheumatological Hx Musculoskeletal Disorders: Yes Hx Falls: Yes Hx Fractures: Yes (METATARSAL FX) Hx Herniated Disk: Yes Hx Unsteady Gait: Yes - Gastrointestinal Hx Gastrointestinal Disorders: Yes (ENTEROCOLITIS,COLECTOMY,TONSILLECTOMY) Hx Gall Bladder Disease: Yes (CHOLEYCYSTECTOMY) Hx Liver Failure: Yes Other/Comment: history of ascites/ paracenthesis done in the past - Genitourinary/Gynecological Hx Genitourinary Disorders: Yes Hx Incontinence: Yes - Psychiatric Hx Psychophysiologic Disorder: Yes Hx Anxiety: Yes Hx Depression: Yes Hx Substance Use: Yes - Surgical History Hx Appendectomy: Yes Hx Cholecystectomy: Yes Hx Coronary Stent: Yes (X3) Hx Open Heart Surgery: Yes Hx Orthopedic Surgery: Yes (laminectomy) Other/Comment: Herniated disc repair, partial colectomy, tonsilectomy - Anesthesia Hx Anesthesia: No - Suicidal Assessment Feels Threatened In Home Enviroment: No Family/Social History - Physician Review Nursing Documentation Reviewed: Yes Family/Social History: No Known Family HX Smoking Status: Former Smoker Hx Alcohol Use: Yes Hx Substance Use: Yes Hx Substance Use Treatment: No Allergies/Home Meds Allergies/Adverse Reactions: Allergies adhesive tape Allergy (Verified 10/26/16 15:17) REDNESS naproxen Allergy (Verified 10/26/16 15:17) VOMITING ciprofloxacin Adverse Reaction (Verified 10/26/16 15:17) ANAPHYLAXIS Home Medications: Home Meds Medication Instructions Recorded Confirmed Simvastatin 20 mg PO DAILY 04/25/16 10/26/16 DiphenhydrAMINE [Benadryl] 2 tab PO HS 06/08/16 10/26/16 Review of Systems - Physician Review All systems were reviewed & negative as marked: Yes - Review of Systems Eyes: absent: Vision Changes Respiratory: SOB Gastrointestinal: Abdominal Pain. absent: Diarrhea, Nausea, Vomiting Neurological: absent: Headache Physical Exam Vital Signs Reviewed: Yes Vital Signs Temp Pulse Resp BP Pulse Ox 10/26/16 18:04 80 18 117/82 100 10/26/16 15:21 98.0 F 80 16 104/61 95 Temperature: Afebrile Blood Pressure: Normal Pulse: Regular Respiratory Rate: Normal Appearance: Positive for: Well-Appearing, Non-Toxic, Comfortable Pain Distress: None Mental Status: Positive for: Alert and Oriented X 3 (somnolent yet oriented: person, partly place, partly time) - Systems Exam Head: Present: Atraumatic, Normocephalic Pupils: Present: PERRL Conjunctiva: Present: Normal Mouth: Present: Moist Mucous Membranes Pharnyx: Present: Normal. No: ERYTHEMA, EXUDATE Neck: Present: Normal Range of Motion Respiratory/Chest: Present: Clear to Auscultation, Good Air Exchange. No: Respiratory Distress, Accessory Muscle Use Cardiovascular: Present: Regular Rate and Rhythm, Normal S1, S2. No: Murmurs Abdomen: Present: Tenderness (diffusely), Distention, Normal Bowel Sounds. No: Peritoneal Signs Back: Present: Normal Inspection Upper Extremity: Present: Normal Inspection. No: Cyanosis, Edema Lower Extremity: Present: Normal Inspection. No: Edema Neurological: Present: GCS=15, CN II-XII Intact, Speech Normal Skin: Present: Warm, Dry, Normal Color. No: Rashes Psychiatric: Present: Alert, Oriented x 3, Normal Insight, Normal Concentration Medical Decision Making ED Course and Treatment: 10/26/16 15:35 Impression: 71 year old female with abdominal pain. Physical exam shows patient is somnolent yet oriented: person, partly place, partly time; abdomen tender. Differential: SBP vs. colitis vs. tense ascites Plan: -- EKG -- Abd/Pelvis CT -- Chest X-ray -- Labs -- Urinalysis -- Blood Culture -- Urine Culture -- Reassess and disposition Prior Visits: Notes and results from previous visits were reviewed. Patient was last seen in the emergency department on 09/15/2016 for anxiety and weakness. Patient was discharged home. Progress Notes: 10/26/2016 16:16 Chest X-ray IMPRESSION: No active disease. No interval pathology. Dictator : Gaye Suazo V. 10/26/2016 19:59 Abd/Pelvis CT IMPRESSION: Continued large volume ascites; small right pleural effusion with interstitial and airspace disease at the right base similar to that seen on the prior study; stable infrarenal abdominal aortic aneurysm, no leak; mild small bowel fold and colonic wall thickening enterocolitis versus hypoproteinemia, no bowel obstruction. Dictator: Korin Chin MD 10/26/16 21:51 Patient with noted history. Labs nondiagnostic. Abx started for possible SBP - consult placed for Dr. Yaw Leonard for paracentesis - will observe for further evaluation and treatment; discussed with Dr. Valdez. - Lab Interpretations Lab Results: 10/26/16 15:43 10/26/16 15:43 Lab Results 10/26/16 21:05: pO2 31, VBG pH 7.30 L, VBG pCO2 62.0 H, VBG HCO3 30.5 H, VBG Total CO2 32.4 H, VBG O2 Sat (Calc) 57.1, VBG Base Excess 2.4 H, VBG Potassium 3.8, Sodium 135.0, Chloride 104.0, Glucose 105, Lactate 1.3, FiO2 21.0, Venous Blood Potassium 3.8 10/26/16 21:05: Urine Opiates Screen Negative, Urine Methadone Screen Negative, Ur Barbiturates Screen Negative, Ur Phencyclidine Scrn Negative, Ur Amphetamines Screen Negative, U Benzodiazepines Scrn Negative, U Oth Cocaine Metabols Negative, U Cannabinoids Screen Negative 10/26/16 20:21: Urine Color Yellow, Urine Appearance Clear, Urine pH 6.0, Ur Specific [place] 1.010, Urine Protein 30 H, Urine Glucose (UA) Negative, Urine Ketones Negative, Urine Blood Trace-intact H, Urine Nitrate Negative, Urine Bilirubin Negative, Urine Urobilinogen 0.2, Ur Leukocyte Esterase Negative, Urine RBC 0 - 2, Urine WBC 1 - 3, Ur Epithelial Cells 1 - 3, Urine Bacteria Few 10/26/16 16:21: Ammonia < 9 L 10/26/16 15:43: pO2 41, VBG pH 7.30 L, VBG pCO2 62.0 H, VBG HCO3 30.5 H, VBG Total CO2 32.4 H, VBG O2 Sat (Calc) 75.3 H, VBG Base Excess 2.4 H, VBG Potassium 4.6, Sodium 138.0, Chloride 103.0, Glucose 167 H, Lactate 3.0 H, FiO2 21.0, Venous Blood Potassium 4.6 10/26/16 15:43: TSH 3rd Generation 3.30, Alcohol, Quantitative < 10 10/26/16 15:43: Sodium 140, Chloride 104, Potassium 4.6, Carbon Dioxide 25, Anion Gap 16, BUN 18, Creatinine 0.6, Est GFR ( Amer) > 60, Est GFR (Non- Af Amer) > 60, Random Glucose 151 H, Calcium 8.5, Phosphorus 3.7, Magnesium 1.8 , Total Bilirubin 0.7, AST 33, ALT 16, Alkaline Phosphatase 132 H, Lactate Dehydrogenase 721 H, Total Creatine Kinase 62, Troponin I 0.02, Total Protein 6.9, Albumin 3.4, Globulin 3.5, Albumin/Globulin Ratio 1.0 L, Lipase 30 10/26/16 15:43: PT 20.0 H, INR 1.85 H, APTT 35.2 H 10/26/16 15:43: WBC 4.4 L, RBC 5.06, Hgb 13.5, Hct 44.1, MCV 87.2 D, MCH 26.7, MCHC 30.6 L, RDW 16.8 H, Plt Count 159, MPV 10.7, Gran % 73.3 H, Lymph % (Auto) 17.1 L, [place] % (Auto) 8.7 H, Eos % (Auto) 0.7 L, Baso % (Auto) 0.2, Gran # 3.21 , Lymph # 0.8 L, [place] # 0.4, Eos # 0.0, Baso # 0.01 I have reviewed the lab results: Yes - RAD Interpretation Radiology Orders: 10/26/16 15:34 CHEST PORTABLE [RAD] Stat 10/26/16 15:40 ABD PELVIS PO & IV CONTRAST [CT] Stat - Medication Orders Current Medication Orders: Metronidazole (Flagyl) 500 mg in 100 mls @ 100 mls/hr IVPB STAT STA PRN Reason: Protocol Stop: 10/26/16 22:06 Sodium Chloride (Sodium Chloride 0.9%) 500 mls @ 100 mls/hr IV .Q5H STA Stop: 10/27/16 02:06 Discontinued Medications Famotidine (Pepcid) 20 mg IVP STAT STA Stop: 10/26/16 20:04 Ceftriaxone Sodium (Rocephin 1 Gram Ivpb) 1 gm in 100 mls @ 200 mls/hr IV ONCE STA PRN Reason: Protocol Stop: 10/26/16 21:35 Iohexol (Omnipaque 240 (50 Ml)) Confirm Administered Dose 50 ml .ROUTE .STK-MED ONE Stop: 10/26/16 15:50 Iohexol (Omnipaque 350 100 Ml) Confirm Administered Dose 350 mg .ROUTE .STK-MED ONE Stop: 10/26/16 17:08 - Scribe Statement The provider has reviewed the documentation as recorded by the Javier Mike Provider Scribe Attestation: All medical record entries made by the Javier were at my direction and personally dictated by me. I have reviewed the chart and agree that the record accurately reflects my personal performance of the history, physical exam, medical decision making, and the department course for this patient. I have also personally directed, reviewed, and agree with the discharge instructions and disposition. Disposition/Present on Arrival - Present on Arrival Any Indicators Present on Arrival: No History of DVT/PE: No History of Uncontrolled Diabetes: No Urinary Catheter: No History of Decub. Ulcer: No History Surgical Site Infection Following: None - Disposition Have Diagnosis and Disposition been Completed?: Yes Diagnosis: Abdominal pain, Ascites Disposition: HOSPITALIZED Disposition Time: 20:00 Patient Plan: Observation Condition: FAIR
[2016-10-26] MEDS ORDERED: Iohexol 240 (50 ml) ONE (15:49)
[2016-10-26 16:11] LABS: BASO # 0.01 K/mm3 (0.0-2.0); BASO % 0.2 % (0.0-3.0); EOS % 0.7 % (1.5-5.0); GRAN # 3.21 (1.4-6.5); GRAN % 73.3 % (50.0-68.0); HEMATOCRIT 44.1 % (36.0-48.0); LYMPH # 0.8 (1.2-3.4); LYMPH % 17.1 % (22.0-35.0); MEAN CELL VOLUME 87.2 fl (80.0-105.0); MEAN CORPUSCULAR HEMOGLOBIN 26.7 pg (25.0-35.0); MEAN CORPUSCULAR HGB CONC 30.6 g/dl (31.0-37.0); MEAN PLATELET VOLUME 10.7 fl (7.0-11.0); MONO # 0.4 (0.1-0.6); MONO % 8.7 % (1.0-6.0); RED CELL DISTRIBUTION WIDTH 16.8 % (11.5-14.5); WHITE BLOOD COUNT 4.4 10^3/ul (4.5-11.0)
[2016-10-26 16:13] LABS: VENOUS BLOOD GAS BASE EXCESS 2.4 mmol/L (0.0-2.0)
[2016-10-26 16:17] LABS: INR 1.85 (0.93-1.08); PARTIAL THROMBOPLASTIN TIME 35.2 Seconds (23.7-30.8)
--- NOTE | 2016-10-26 16:18 | RAD ---
HISTORY: sob COMPARISON: 09/15/2016 FINDINGS: LUNGS: No active pulmonary disease. PLEURA: No significant pleural effusion identified, no pneumothorax apparent. CARDIOVASCULAR: Cardiomegaly. Valvular prosthesis, 2 lead pacemaker device and post sternotomy changes-all similar OSSEOUS STRUCTURES: Sternotomy VISUALIZED UPPER ABDOMEN: Normal. OTHER FINDINGS: None. IMPRESSION: No active disease. No interval pathology
[2016-10-26 16:21] LABS: ALKALINE PHOSPHATASE 132 U/L (38-126); ALT/SGPT 16 U/L (7-56); AST/SGOT 33 U/L (14-36); BILIRUBIN,TOTAL 0.7 mg/dL (0.2-1.3); BLOOD UREA NITROGEN 18 mg/dL (7-21); CALCIUM 8.5 mg/dL (8.4-10.5); CARBON DIOXIDE 25 mmol/L (21-33); CHLORIDE 104 mmol/L (98-107); GFR AFRICAN-AMERICAN > 60; GLUCOSE,RANDOM 151 mg/dL (70-110); LIPASE 30 U/L (23-300); MAGNESIUM 1.8 mg/dL (1.7-2.2); PHOSPHOROUS 3.7 mg/dL (2.5-4.5); POTASSIUM 4.6 mmol/L (3.6-5.0); SODIUM 140 mmol/L (132-148); TOTAL PROTEIN 6.9 g/dL (5.8-8.3)
[2016-10-26 16:24] LABS: ALCOHOL SERUM < 10 mg/dL (0-10)
[2016-10-26 16:32] LABS: TROPONIN I 0.02 ng/mL
[2016-10-26] MEDS ORDERED: Iohexol 350 MG/100 ML VIAL ONE (17:07)
[2016-10-26] MEDS ORDERED: Levalbuterol 0.63 MG/3 ML Inhal Soln UD IH STA (18:54)
[2016-10-26] MEDS ORDERED: guaiFENesin 200 mg/10 ml Syrup UD PO STA (18:54)
--- NOTE | 2016-10-26 19:59 | CT ---
EXAM: CT Abdomen and Pelvis With Intravenous Contrast EXAM DATE/TIME: 10/26/2016 3:40 PM CLINICAL HISTORY: 71 years old, female; Pain; Abdominal pain; Generalized; Prior surgery; Surgery date: 6+ months; Surgery type: HX appendectomy, HX cholecystectomy, HX bowl resection; Additional info: Abdominal pain, for 7 days TECHNIQUE: Axial computed tomography images of the abdomen and pelvis with intravenous contrast. All CT scans at this facility use one or more dose reduction techniques, viz.: automated exposure control; ma/kV adjustment per patient size (including targeted exams where dose is matched to indication; i.e. head); or iterative reconstruction technique. Coronal and sagittal reformatted images were created and reviewed. CONTRAST: 100 mL of OMNI 350 administered intravenously. COMPARISON: CT - ABD PELVIS W/O PO OR IV CONT 09/05/2016 3:48:27 AM FINDINGS: Lower thorax: The heart is enlarged. Right atrium is dilated. There is reflux of contrast into hepatic veins and inferior vena cava. There is streak artifact from pacemaker leads. There are coronary artery calcifications. There is streak artifact from surgical clips. There is a prosthetic mitral valve. Lung bases are hyperinflated. There is interstitial and airspace disease at the right base. There is a small right effusion. There is a hiatal hernia. ABDOMEN: Liver: unremarkable Gallbladder and bile ducts: Gallbladder is surgically absent. There is minimal pneumobilia with air in the common duct. Pancreas: Pancreas is atrophic. Spleen: unremarkable Adrenals: unremarkable Kidneys and ureters: unremarkable Stomach and bowel: Stomach is partially distended. Rotation is normal. There is contrast throughout the small bowel. There is no small bowel obstruction. There is mild diffuse small bowel fold thickening. There are scattered air-fluid levels. Terminal ileum is unremarkable. There is mild colonic wall thickening. The colon is foreshortened. There is a colorectal anastomosis. Appendix: Appendectomy PELVIS: Bladder: unremarkable Reproductive: Uterus is atrophic. Adnexa are unremarkable. ABDOMEN and PELVIS: Intraperitoneal space: There is a large amount of ascites in the abdomen and pelvis. There is no free air. Bones/joints: Bony structures are osteopenic.There are degenerative changes in the osseus structures. Soft tissues: There is body wall edema There is mesh in the lower abdominal wall. There are calcifications in the buttocks. Vasculature: There are atherosclerotic calcifications in the aorta. There is an infra-renal aortic aneurysm 3.3 cm in maximal diameter. There is no extension into the iliacs. There is no leak. Lymph nodes: There is shotty adenopathy. IMPRESSION: Continued large volume ascites; small right pleural effusion with interstitial and airspace disease at the right base similar to that seen on the prior study; stable infrarenal abdominal aortic aneurysm, no leak; mild small bowel fold and colonic wall thickening enterocolitis versus hypo-proteinemia, no bowel obstruction Additional findings as described above.
[2016-10-26 20:34] LABS: URINE BILIRUBIN NEGATIVE (NEGATIVE); URINE BLOOD TRACE-INTACT (NEGATIVE); URINE GLUCOSE (UA) NEGATIVE (NEGATIVE); URINE KETONE NEGATIVE (NEGATIVE); URINE LEUKOCYTE ESTERASE NEGATIVE Leu/uL (NEGATIVE); URINE PROTEIN 30 mg/dL (<30 mg/dL); URINE UROBILINOGEN 0.2 E.U./dL (<1 E.U./dL)
[2016-10-26 20:40] LABS: URINE APPEARANCE CLEAR (CLEAR); URINE COLOR YELLOW (YELLOW)
[2016-10-26 20:43] LABS: URINE BACTERIA FEW (NEG); URINE RBC 0 - 2 /hpf (0-2)
[2016-10-26] MEDS ORDERED: cefTRIAXone 1 gm 1 GM/100 ML BAG IV STA (21:06)
[2016-10-26] MEDS ORDERED: Sodium Chloride 0.9% 500 ML IV STA (21:07)
[2016-10-26] MEDS ORDERED: metroNIDAZOLE IV 500 mg/100 ml 500 MG/100 ML BAG IVPB STA (21:07)
[2016-10-26 21:19] LABS: VENOUS BLOOD GAS BASE EXCESS 2.4 mmol/L (0.0-2.0)
--- NOTE | 2016-10-26 22:59 | CARD ---
APPROVED REPORT EKG Measurement Heart [id number] OR [id number] [id number] <Conclusion> Electronic ventricular pacemaker
--- NOTE | 2016-10-27 12:09 | CP.PCM.HP ---
History of Present Illness - History of Present Illness History of Present Illness: 71 yo female h/o ischemic CM recurrent admits for intractable ascites, CHF, presents with SOB, lethargy and edema, no cp, poor oral intake, inability to ambulate Present on Admission - Present on Admission Any Indicators Present on Admission: No Review of Systems - Review of Systems Systems not reviewed;Unavailable: Altered Mental Status - Constitutional Constitutional: Fatigue, Lethargy - Cardiovascular Cardiovascular: Dyspnea on Exertion, Leg Edema - Respiratory Respiratory: Dyspnea - Neurological Neurological: Abnormal Gait Past Patient History - Infectious Disease Hx of Infectious Diseases: None - Tetanus Immunizations Tetanus Immunization: Unknown - Past Social History Smoking Status: Former Smoker - CARDIAC Hx Cardiac Disorders: Yes (SC , CAD) Hx Congestive Heart Failure: Yes Hx Hypertension: Yes - PULMONARY Hx Chronic Obstructive Pulmonary Disease (COPD): Yes - NEUROLOGICAL Hx Neurological Disorder: Yes Hx Transient Ischemic Attacks (TIA): Yes - HEENT Hx HEENT Problems: Yes Hx Deafness: Yes - RENAL Hx Chronic Kidney Disease: No - ENDOCRINE/METABOLIC Hx Diabetes Mellitus Type 2: Yes - HEMATOLOGICAL/ONCOLOGICAL Hx Blood Disorders: Yes Hx Cancer: Yes - INTEGUMENTARY Hx Dermatological Problems: Yes (HAS RAYNAUDS' DSE) Other/Comment: MOTTLED LEGS AND ARMS.PT. ON COUMADIN. 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 - MUSCULOSKELETAL/RHEUMATOLOGICAL Hx Falls: Yes - GASTROINTESTINAL Hx Gastrointestinal Disorders: Yes (ENTEROCOLITIS,COLECTOMY,TONSILLECTOMY) Hx Gall Bladder Disease: Yes (CHOLEYCYSTECTOMY) Hx Liver Failure: Yes Other/Comment: history of ascites/ paracenthesis done in the past - GENITOURINARY/GYNECOLOGICAL Hx Genitourinary Disorders: Yes Hx Incontinence: Yes - PSYCHIATRIC Hx Substance Use: Yes - SURGICAL HISTORY Hx Appendectomy: Yes Hx Cholecystectomy: Yes Hx Coronary Stent: Yes (X3) Hx Open Heart Surgery: Yes Hx Orthopedic Surgery: Yes (laminectomy) Other/Comment: Herniated disc repair, partial colectomy, tonsilectomy - ANESTHESIA Hx Anesthesia: No Meds Allergies/Adverse Reactions: Allergies Allergy/AdvReac Type Severity Reaction Status Date / Time adhesive tape Allergy REDNESS Verified 10/26/16 15:17 naproxen Allergy VOMITING Verified 10/26/16 15:17 ciprofloxacin AdvReac ANAPHYLAXIS Verified 10/26/16 15:17 Physical Exam - Constitutional Appears: Cachectic - Head Exam Head Exam: ATRAUMATIC, NORMOCEPHALIC - ENT Exam ENT Exam: Mucous Membranes Moist - Neck Exam Neck exam: Positive for: Normal Inspection - Respiratory Exam Respiratory Exam: Rales, Rhonchi - Cardiovascular Exam Cardiovascular Exam: REGULAR RHYTHM, JVD, Systolic Murmur - GI/Abdominal Exam GI & Abdominal Exam: Distended, Normal Bowel Sounds, Tenderness - Extremities Exam Extremities exam: Positive for: pedal edema - Neurological Exam Neurological exam: Abnormal Gait, Altered - Skin Skin Exam: Cyanosis, Mottled Results - Vital Signs Recent Vital Signs: Last Vital Signs Temp 97.7 F 10/27/16 10:00 Pulse 64 10/27/16 10:00 Resp 20 10/27/16 10:00 BP 129/61 10/27/16 10:00 Pulse Ox 97 10/27/16 10:00 - Labs Result Diagrams: 10/26/16 15:43 10/26/16 15:43 Assessment & Plan (1) Ascites Status: Acute (2) CHF (congestive heart failure), NYHA class II Status: Chronic (3) Type II diabetes mellitus Status: Chronic - Assessment and Plan (Free Text) Plan: IV Lasix, cardio consult, low-dose dobutamine, consult dr. vieyra for abd paracentesis - Date & Time Date: 10/27/16 Time: 09:45
[2016-10-27] MEDS: Digoxin 250 mcg (0.25 mg) Tab PO SCH (14:42)
--- NOTE | 2016-10-27 15:18 | US ---
PROCEDURE: Ultrasound guided paracentesis. HISTORY: Recurrent ascites. Abdominal pain and distention. Multiple previous paracentesis. PHYSICIAN(S): Yaw Leonard MD. TECHNIQUE: The relative risks and indications for the procedure were explained to the patient and informed written consent obtained. Sonography of the abdomen was performed in a supine position. This revealed a moderate amount of non-loculated ascites, greatest in the right lower quadrant. A puncture site was selected and the area was prepped and draped in the usual sterile fashion. 1% Xylocaine was used to anesthetize the skin and soft tissues. A 7 [place] paracentesis catheter was trocared into the right lower quadrantand 5100 cc of clear, straw-colored fluid aspirated. No labs were sent IMPRESSION: Ultrasound-guided paracentesis in the right lower quadrant. 5100 cc of fluid were aspirated.
[2016-10-27] MEDS: DOBUTamine 500mg/250ml D5W 500 MG/250 ML BAG IV SCH (15:58)
[2016-10-28 06:36] LABS: BASO # 0.01 K/mm3 (0.0-2.0); BASO % 0.2 % (0.0-3.0); EOS % 0.4 % (1.5-5.0); GRAN # 3.41 (1.4-6.5); GRAN % 76.3 % (50.0-68.0); HEMATOCRIT 40.5 % (36.0-48.0); LYMPH # 0.7 (1.2-3.4); LYMPH % 15.9 % (22.0-35.0); MEAN CELL VOLUME 85.3 fl (80.0-105.0); MEAN CORPUSCULAR HEMOGLOBIN 26.1 pg (25.0-35.0); MEAN CORPUSCULAR HGB CONC 30.6 g/dl (31.0-37.0); MEAN PLATELET VOLUME 10.5 fl (7.0-11.0); MONO # 0.3 (0.1-0.6); MONO % 7.2 % (1.0-6.0); RED CELL DISTRIBUTION WIDTH 16.6 % (11.5-14.5); WHITE BLOOD COUNT 4.5 10^3/ul (4.5-11.0)
[2016-10-28 06:41] LABS: ALB/GLOB RATIO 0.9 (1.1-1.8); ALKALINE PHOSPHATASE 104 U/L (38-126); ALT/SGPT 22 U/L (7-56); AST/SGOT 19 U/L (14-36); BILIRUBIN,TOTAL 0.4 mg/dL (0.2-1.3); BLOOD UREA NITROGEN 20 mg/dL (7-21); CALCIUM 7.4 mg/dL (8.4-10.5); CARBON DIOXIDE 33 mmol/L (21-33); CHLORIDE 99 mmol/L (98-107); CHOLESTEROL 55 mg/dL (130-200); GFR AFRICAN-AMERICAN > 60; GLUCOSE,RANDOM 142 mg/dL (70-110); MAGNESIUM 1.7 mg/dL (1.7-2.2); PHOSPHOROUS 3.4 mg/dL (2.5-4.5); POTASSIUM 4.2 mmol/L (3.6-5.0); SODIUM 139 mmol/L (132-148); TOTAL PROTEIN 5.8 g/dL (5.8-8.3)
--- NOTE | 2016-10-28 08:09 | CON ---
DATE: 10/27/2016 CONSULT SERVICE: Cardiology. REASON FOR CONSULTATION: Decompensated congestive heart failure, coronary artery disease, CABG, atrial fibrillation, cardiomyopathy status post AICD cardiac evaluation. BRIEF CLINICAL HISTORY: This is a 71-year-old female with past medical history significant for decompensated congestive heart failure, acute on chronic systolic dysfunction, cardiomyopathy, coronary artery disease status post pre and post CABG and PTCA, history of AICD, history of chronic atrial fibrillation, admitted with decompensated congestive heart failure and large ascites and the patient is currently on a floor 3, R376, bed 2. The patient needs IV Dobutrex, as the patient is going to be transferred to telemetry and start Dobutrex there. The patient denies any chest pain, but complained of shortness of breath and feel very weak and lethargic. PAST MEDICAL HISTORY: Significant for longstanding history coronary artery disease, status post inferior wall CA, status post primary angioplasty of RCA, status post TPA at that time and over the course of time, the patient had multiple PTCAs , history of coronary artery bypass surgery at [facility]. Later on, the patient had a mitral valve repair as well as CABG and then patient had AICD placed in [facility]. History of AFib, on anticoagulation; history of diabetes, off oral hypoglycemic agents because of recurrent hypoglycemia, history of multiple admissions and recurrent admission with ascites, history of multiple large volume abdominal paracentesis, and history of decompensated congestive heart failure. PAST SURGICAL HISTORY: Significant for incarcerated hernia, multiple admissions with abdominal distension and history of multiple abdominal paracentesis, history of coronary artery disease, CABG, history of AICD, history of pre and post CABG and PTCA. SOCIAL HISTORY: Denies any history of alcohol abuse. CURRENT MEDICATIONS: The patient at home is taking diphenhydramine, Coumadin 3 mg, simvastatin, Lasix 30 mg daily, Benadryl two tablets daily, and digoxin 0.25 mg daily. RECENT CARDIAC WORKUP: As follows: The patient's last echocardiography 04/14/2015 that showed systolic function severely reduced with ejection fraction 20-25%, LV hypokinesis, normal LV size, [id number] aortic regurgitation, is status post MV repair, [id number] mitral valve regurgitation, mitral stenosis, MV area of 1.3 cm square, rdfzjcwi-eu-nfmkiu tricuspid regurgitation, RV systolic pressure of 51, dated 04/25/2015. REVIEW OF SYSTEMS: As per HPI. ALLERGIES: TAPE, NAPROSYN AND CIPROFLOXACIN. PHYSICAL EXAMINATION: VITAL SIGNS: As follows; temperature afebrile, heart rate is 64, blood pressure 130/60. HEENT: PERRLA intact. NECK: Supple. No carotid bruits. No thyromegaly. CHEST: Clear to auscultation. HEART: S1 and S2 regular. ABDOMEN: Soft. EXTREMITIES: Clubbing and cyanosis negative. LABORATORY DATA: Blood workup as follows: WBC 4.4, hemoglobin 13, hematocrit 44.1, and platelet count 159. Chemistry shows sodium 140, potassium 4.0, chloride 104, carbon dioxide 25, anion gap of 15, BUN 18, creatinine 0.6, and TSH 3.3. IMPRESSION: A 71-year-old female with past medical history significant for coronary artery disease, inferior wall myocardial infarction mid back in 90s, status post TPA, status post PTCA. Over the course of time, the patient had multiple PTCAs and then pre and post coronary artery bypass graft and percutaneous transluminal coronary angioplasty and then patient had a coronary artery bypass graft, automatic implantable cardioverter-defibrillator done as well as mitral valve replacement, history of atrial fibrillation, admitted with decompensated congestive heart failure. The patient transfer patient to telemetry. Denies any chest pain, but complained of shortness of breath. The last echo shows an ejection fraction of 20-25%, rwky-un-loklzvvk mitral valve regurgitation with MV area of 1.3 cm square, mild aortic regurgitation, status post mitral valve repair, rfvxowvu-xj-kqdoks tricuspid regurgitation, RV systolic pressure of 51, pulmonary hypertension, moderate mitral stenosis, ascites, diabetes, hypertension, hyperlipidemia, chronic atrial fibrillation on anticoagulation, and decompensated congestive heart failure. Today INR is 1.85. RECOMMENDATIONS: We will start Lasix. We will start Dobutrex and move to the telemetry. We will repeat the blood workup in the morning. Thank you Dr. Valdez for providing us the opportunity in taking care of the patient, Goodman Umaña. Tonia Quinteros MD cc: Dr. Valdez [facility] # [id number]
--- NOTE | 2016-10-28 09:01 | CP.PCM.PN ---
Subjective - Date & Time of Evaluation Date of Evaluation: 10/28/16 Time of Evaluation: 08:45 - Subjective Subjective: NAD, denies cp, no SOB Objective - Vital Signs/Intake and Output Vital Signs (last 24 hours): Temp Pulse Resp BP Pulse Ox 98.5 F 80 19 113/62 96 10/28/16 06:00 10/28/16 06:00 10/28/16 06:00 10/28/16 06:00 10/28/16 06:00 Intake and Output: 10/28/16 10/28/16 06:59 18:59 Intake Total 961 Output Total 2300 Balance -1339 - Medications Medications: Current Medications Digoxin (Lanoxin) 0.25 mg PO 1400 [facility] Last Admin: 10/27/16 14:42 Dose: 0.25 mg Diphenhydramine HCl (Benadryl) 25 mg PO HS PRN PRN Reason: Insomnia Famotidine (Pepcid) 20 mg PO 1000,2200 [facility] Last Admin: 10/27/16 21:07 Dose: 20 mg Furosemide (Lasix) 80 mg IVP Q12 [facility] Last Admin: 10/27/16 21:07 Dose: 80 mg Dobutamine HCl/Dextrose (Dobutamine/Dextrose 5% 500mg/250ml) 500 mg in 250 mls @ 5.103 mls/hr IV .Q24H [facility] PRN Reason: 2.5 MCG/KG/MIN Last Admin: 10/27/16 15:58 Dose: 5.103 mls/hr Pneumococcal Polyvalent Vaccine (Pneumovax 23 Vaccine) 0.5 ml IM .ONCE ONE Stop: 10/29/16 10:01 Warfarin Sodium (Coumadin) 3 mg PO 1800 [facility] PRN Reason: Protocol Last Admin: 10/27/16 18:07 Dose: Not Given - Labs Labs: 10/28/16 06:22 10/28/16 06:22 PT 20.0 Seconds (9.9-11.8) H 10/26/16 15:43 INR 1.85 (0.93-1.08) H 10/26/16 15:43 APTT 35.2 Seconds (23.7-30.8) H 10/26/16 15:43 - Respiratory Exam Respiratory Exam: Rales, NORMAL BREATHING PATTERN - Cardiovascular Exam Cardiovascular Exam: REGULAR RHYTHM - GI/Abdominal Exam GI & Abdominal Exam: Soft, Normal Bowel Sounds - Extremities Exam Extremities Exam: Pedal Edema - Neurological Exam Neurological Exam: Abnormal Gait, Awake - Skin Skin Exam: Dry, Warm Assessment and Plan (1) Ascites Status: Resolved (2) CHF (congestive heart failure), NYHA class II Status: Chronic (3) Type II diabetes mellitus Status: Chronic - Assessment and Plan (Free Text) Plan: s/p abd paracentesis, on IV dobutamine, cardio f/u, PT and SW for DC planning
[2016-10-28 11:38] LABS: INR 1.6 (0.93-1.08)
--- NOTE | 2016-10-28 11:38 | PN ---
DATE: 10/28/2016 REASON FOR CONSULTATION: Decompensated congestive heart failure, coronary artery disease, CABG, atrial fibrillation, cardiomyopathy status post AICD, admitted with decompensated congestive heart failure. SUBJECTIVE: Denies any chest pain, but feel lousy, feels better after abdominal paracentesis. OBJECTIVE: GENERAL: Lying flat on the bed. VITAL SIGNS: As follows; temperature afebrile, heart rate 80, blood pressure 113/62. HEENT: PERRLA. Extraocular muscles intact. NECK: Supple. No carotid bruit. No thyromegaly. CHEST: Clear to auscultation. HEART: S1 and S2 regular. ABDOMEN: Soft. EXTREMITIES: Clubbing and cyanosis negative. LABORATORY DATA: Blood workup as follows: WBC 4.2, hemoglobin 12.2, hematocrit 40.5, and platelet count 146. INR 1.85. Chemistry shows sodium 130, potassium 4.2, chloride 99, carbon dioxide 22, anion gap of 11, BUN 23, and creatinine 0.8. IMPRESSION: Decompensated congestive heart failure, acute on chronic systolic dysfunction status post abdominal paracentesis, 5.1 liter fluid was drained, chronic atrial fibrillation is status post automatic implantable cardioverter-defibrillator and status post pre and post coronary artery bypass graft, percutaneous transluminal coronary angioplasty, last ejection fraction of 20-25% by echo, moderate mitral stenosis, mitral valve area of 1.3 cm square, mild aortic regurgitation is status post mitral valve repair, so postop mitral stenosis is 1.3 cm, , INR is 1.85, chronic atrial fibrillation, hypertension, and hyperlipidemia. RECOMMENDATIONS: Dobutrex was started yesterday and continue Coumadin. We will check INR today as STAT and tomorrow. Continue and continue Lasix as started by Dr. Valdez. We will follow with you. We will repeat the PT/INR and repeat the blood workup in the morning. Supplement electrolytes as needed. We will order STAT PT/INR today and PT/INR for tomorrow. Thank you Dr. Valdez for providing us the opportunity in taking care of the patient, Goodman Umaña. We will follow with you. Tonia Quinteros MD
[2016-10-28] MEDS: Digoxin 250 mcg (0.25 mg) Tab PO SCH (17:37)
[2016-10-28] MEDS: DOBUTamine 500mg/250ml D5W 500 MG/250 ML BAG IV SCH (17:37)
[2016-10-29 08:04] LABS: INR 1.33 (0.93-1.08)
[2016-10-29] MEDS ORDERED: Pneumococcal 23-Valent Vaccine IM ONE (10:00)
--- NOTE | 2016-10-29 11:24 | CP.PCM.PN ---
Subjective - Date & Time of Evaluation Date of Evaluation: 10/29/16 Time of Evaluation: 11:00 - Subjective Subjective: NAD Objective - Vital Signs/Intake and Output Vital Signs (last 24 hours): Temp Pulse Resp BP Pulse Ox 98.6 F 93 H 20 138/76 97 10/29/16 06:00 10/29/16 06:00 10/29/16 06:00 10/29/16 10:23 10/29/16 06:00 Intake and Output: 10/29/16 10/29/16 06:59 18:59 Intake Total 62 Balance 62 - Medications Medications: Current Medications Digoxin (Lanoxin) 0.25 mg PO 1400 [facility] Last Admin: 10/28/16 17:37 Dose: 0.25 mg Diphenhydramine HCl (Benadryl) 25 mg PO HS PRN PRN Reason: Insomnia Famotidine (Pepcid) 20 mg PO 1000,2200 [facility] Last Admin: 10/29/16 10:23 Dose: 20 mg Furosemide (Lasix) 80 mg IVP Q12 [facility] Last Admin: 10/29/16 10:23 Dose: 80 mg Dobutamine HCl/Dextrose (Dobutamine/Dextrose 5% 500mg/250ml) 500 mg in 250 mls @ 5.103 mls/hr IV .Q24H [facility] PRN Reason: 2.5 MCG/KG/MIN Last Admin: 10/28/16 17:37 Dose: 5.103 mls/hr Warfarin Sodium (Coumadin) 3 mg PO 1800 [facility] PRN Reason: Protocol Last Admin: 10/28/16 17:37 Dose: 3 mg - Labs Labs: 10/28/16 06:22 10/28/16 06:22 PT 14.4 Seconds (9.9-11.8) H 10/29/16 07:51 INR 1.33 (0.93-1.08) H 10/29/16 07:51 APTT 35.2 Seconds (23.7-30.8) H 10/26/16 15:43 - Respiratory Exam Respiratory Exam: Clear to Ausculation Bilateral, NORMAL BREATHING PATTERN - Cardiovascular Exam Cardiovascular Exam: REGULAR RHYTHM, Murmur - GI/Abdominal Exam GI & Abdominal Exam: Soft, Normal Bowel Sounds - Extremities Exam Extremities Exam: Normal Inspection - Neurological Exam Neurological Exam: Alert, Awake - Skin Skin Exam: Dry, Warm Assessment and Plan (1) Ascites Status: Resolved (2) CHF (congestive heart failure), NYHA class II Status: Chronic (3) Type II diabetes mellitus Status: Chronic - Assessment and Plan (Free Text) Plan: continue IV dobutamine, cardio f/u, PT, SW for d/c planning
[2016-10-29] MEDS: Digoxin 250 mcg (0.25 mg) Tab PO SCH (17:29)
[2016-10-29] MEDS: DOBUTamine 500mg/250ml D5W 500 MG/250 ML BAG IV SCH (17:29)
--- NOTE | 2016-10-29 18:48 | PN ---
DATE: 10/29/2016 LOCATION: Room #267, bed 2. REASON FOR CONSULTATION: Followup decompensated congestive heart failure, coronary artery disease, CABG, atrial fibrillation, cardiomyopathy status post AICD insertion, admitted with decompensated congestive heart failure. SUBJECTIVE: The patient denies chest pain. She says her shortness of breath is better. She had abdominal paracentesis. Denies any palpitations. PHYSICAL EXAMINATION: VITAL SIGNS: Blood pressure 111/52, respirations 19, pulse 79, temperature 97.1. HEENT: Head is normocephalic. Eyes: Pupils are normal. Conjunctiva normal. Nose and throat normal. NECK: JVP low. Carotids are equal. Thorax, AP diameter normal. LUNGS: No significant rales. CARDIOVASCULAR: S1 and S2, pansystolic murmur grade 3/6. No rubs. ABDOMEN: Ascites status post post-paracentesis. LABORATORY DATA: WBC 4.5, hemoglobin 12.4, hematocrit 40.5, and platelets 146. Random sugar 258, sodium 139, potassium 4.2, BUN 20, creatinine 0.8. Random glucose 142. Phosphorus and magnesium are normal. Total protein 5.8, albumin 2.7. DIAGNOSES: Decompensated congestive heart failure, acute on chronic left ventricular systolic failure status post abdominal paracentesis, 5.1 L fluid was removed, atrial fibrillation status post automatic implantable cardioverter defibrillator insertion. The patient had multiple angioplasties prior to coronary artery bypass surgery and also, post coronary artery bypass surgery. The patient had angioplasty with stent insertion. On the last echo ejection fraction was 22% to 25% moderate mitral stenosis. Mitral valve area 1.3 cm2, mild aortic regurgitation status post mitral valve repair, hypertension, hyperlipidemia, ascites status post paracentesis. PLAN: The patient is on Dobutrex drip, digoxin 0.25 daily, furosemide 80 mg IV q. 12 hours, warfarin 3 mg p.o. daily. Prothrombin time 14.4, INR 1.33. Hypertension, hyperlipidemia. We will continue present therapy. I will follow PT/INR tomorrow. We will follow with you. Tonia Roy MD /18:47:19<
--- NOTE | 2016-10-30 10:01 | CP.PCM.PN ---
Subjective - Date & Time of Evaluation Date of Evaluation: 10/30/16 Time of Evaluation: 09:45 - Subjective Subjective: NAD, no cp. no SOB, on IV dobuamine Objective - Vital Signs/Intake and Output Vital Signs (last 24 hours): Temp Pulse Resp BP Pulse Ox 97.7 F 77 20 115/71 97 10/30/16 06:00 10/30/16 06:00 10/30/16 06:00 10/30/16 06:00 10/30/16 06:00 Intake and Output: 10/30/16 10/30/16 06:59 18:59 Intake Total 1781 Output Total 500 Balance 1281 - Medications Medications: Current Medications Digoxin (Lanoxin) 0.25 mg PO 1400 [facility] Last Admin: 10/29/16 17:29 Dose: 0.25 mg Diphenhydramine HCl (Benadryl) 25 mg PO HS PRN PRN Reason: Insomnia Last Admin: 10/29/16 21:36 Dose: 25 mg Famotidine (Pepcid) 20 mg PO 1000,2200 [facility] Last Admin: 10/29/16 21:36 Dose: 20 mg Furosemide (Lasix) 80 mg IVP Q12 [facility] Last Admin: 10/29/16 21:51 Dose: 80 mg Dobutamine HCl/Dextrose (Dobutamine/Dextrose 5% 500mg/250ml) 500 mg in 250 mls @ 5.103 mls/hr IV .Q24H [facility] PRN Reason: 2.5 MCG/KG/MIN Last Admin: 10/29/16 17:29 Dose: 5.103 mls/hr Warfarin Sodium (Coumadin) 3 mg PO 1800 [facility] PRN Reason: Protocol Last Admin: 10/29/16 17:29 Dose: 3 mg - Labs Labs: 10/28/16 06:22 10/28/16 06:22 PT 14.4 Seconds (9.9-11.8) H 10/29/16 07:51 INR 1.33 (0.93-1.08) H 10/29/16 07:51 APTT 35.2 Seconds (23.7-30.8) H 10/26/16 15:43 - Respiratory Exam Respiratory Exam: Rales - Cardiovascular Exam Cardiovascular Exam: REGULAR RHYTHM - GI/Abdominal Exam GI & Abdominal Exam: Soft, Normal Bowel Sounds - Extremities Exam Extremities Exam: Normal Inspection - Neurological Exam Neurological Exam: Awake, Oriented x3 - Skin Skin Exam: Dry, Warm Assessment and Plan (1) Ascites Status: Resolved (2) CHF (congestive heart failure), NYHA class II Status: Chronic (3) Type II diabetes mellitus Status: Chronic - Assessment and Plan (Free Text) Plan: continue IV dobutamine, PT & SW for dc planning
[2016-10-30] MEDS: Digoxin 250 mcg (0.25 mg) Tab PO SCH (14:47)
--- NOTE | 2016-10-30 16:24 | PN ---
DATE: 10/30/2016 REASON FOR CONSULTATION: Followup decompensated congestive heart failure, coronary artery disease, CABG, atrial fibrillation, cardiomyopathy, status post AICD, admitted with decompensated congestive heart failure and ascites. SUBJECTIVE: Feels lousy. No chest pain. No shortness of breath. No abdominal pain, but still feels lousy. OBJECTIVE: GENERAL: Sitting at the bedside, finished her breakfast, not in apparent distress. Examination as follows: VITAL SIGNS: Temperature afebrile, heart rate 77, blood pressure 115/71. HEENT: PERRLA. Extraocular muscles intact. NECK: Supple. No carotid bruit. No thyromegaly. CHEST: Clear to auscultation. HEART: S1 and S2 regular. ABDOMEN: Soft. EXTREMITIES: Clubbing and cyanosis negative. LABORATORY DATA: Blood workup as follows: WBC 4.5, hemoglobin 12.4, hematocrit 40.5, platelet count 146. Chemistry shows sodium 132, potassium 4.2, chloride 99, carbon dioxide 32, anion gap of 11, BUN 20, creatinine 0.8. Total protein 5.8, albumin 2.7, albumin-globulin ratio 0.9. IMPRESSION: Protein-calorie malnutrition not present on admission, is status post abdominal paracentesis, 5.1 liter fluid has been drained, coronary artery disease, coronary artery bypass graft in the past, history of myocardial infarction in the past, history of mitral valve repair, history of chronic atrial fibrillation, diabetes, hypertension, hyperlipidemia, admitted with acute decompensated congestive heart failure, last ejection fraction of 20 to 25%, status post mitral repair, valve area of 1.3 cm square, mild aortic regurgitation status post repair, hypertension, hyperlipidemia, ascites, status post abdominal paracentesis. RECOMMENDATIONS: Continue Dobutrex, continue Lasix. Discussed with Dr. Valdez on home Dobutrex, but because of the family's social issues, it has been more complex than it appears not have the home Dobutrex high risk of infection is indicated. We will increase Coumadin to 4 mg today and tomorrow followed by 3 mg from Monday. We will follow with you. Tonia Quinteros MD
[2016-10-30] MEDS: DOBUTamine 500mg/250ml D5W 500 MG/250 ML BAG IV SCH (18:09)
[2016-10-31 05:51] LABS: INR 1.3 (0.93-1.08)
[2016-10-31 06:44] VITALS: O2SAT 97
--- NOTE | 2016-10-31 09:09 | CP.PCM.PN ---
Subjective - Date & Time of Evaluation Date of Evaluation: 10/31/16 Time of Evaluation: 09:00 - Subjective Subjective: NAD, no cp, no SOB Objective - Vital Signs/Intake and Output Vital Signs (last 24 hours): Temp Pulse Resp BP Pulse Ox 98.6 F 71 20 113/61 97 10/31/16 06:00 10/31/16 06:00 10/31/16 06:00 10/31/16 06:00 10/31/16 06:00 Intake and Output: 10/31/16 10/31/16 06:59 18:59 Intake Total 541 Output Total 800 Balance -259 - Medications Medications: Current Medications Digoxin (Lanoxin) 0.25 mg PO 1400 [facility] Last Admin: 10/30/16 14:47 Dose: 0.25 mg Diphenhydramine HCl (Benadryl) 25 mg PO HS PRN PRN Reason: Insomnia Last Admin: 10/29/16 21:36 Dose: 25 mg Famotidine (Pepcid) 20 mg PO 1000,2200 [facility] Last Admin: 10/30/16 21:10 Dose: 20 mg Furosemide (Lasix) 80 mg IVP Q12 [facility] Last Admin: 10/30/16 21:10 Dose: 80 mg Dobutamine HCl/Dextrose (Dobutamine/Dextrose 5% 500mg/250ml) 500 mg in 250 mls @ 5.103 mls/hr IV .Q24H [facility] PRN Reason: 2.5 MCG/KG/MIN Last Admin: 10/30/16 18:09 Dose: Not Given Warfarin Sodium (Coumadin) 3 mg PO 1800 [facility] PRN Reason: Protocol Warfarin Sodium (Coumadin) 4 mg PO 1800 [facility] PRN Reason: Protocol Stop: 10/31/16 23:59 Last Admin: 10/30/16 17:29 Dose: 4 mg - Labs Labs: 10/28/16 06:22 10/28/16 06:22 PT 14.0 Seconds (9.9-11.8) H 10/31/16 05:20 INR 1.30 (0.93-1.08) H 10/31/16 05:20 APTT 35.2 Seconds (23.7-30.8) H 10/26/16 15:43 - Respiratory Exam Respiratory Exam: Clear to Ausculation Bilateral, NORMAL BREATHING PATTERN - Cardiovascular Exam Cardiovascular Exam: REGULAR RHYTHM - GI/Abdominal Exam GI & Abdominal Exam: Soft, Normal Bowel Sounds - Neurological Exam Neurological Exam: Abnormal Gait, Alert, Awake - Skin Skin Exam: Dry, Warm Assessment and Plan (1) Ascites Status: Resolved (2) CHF (congestive heart failure), NYHA class II Status: Chronic (3) Type II diabetes mellitus Status: Chronic - Assessment and Plan (Free Text) Plan: continue present rx, cardio f/u, SW for DC planning
[2016-10-31 12:56] VITALS: BP 115/75; RESP 19; TEMP 98.2
[2016-10-31] MEDS: Digoxin 250 mcg (0.25 mg) Tab PO SCH (14:51)
[2016-10-31 14:52] VITALS: PULSE 81
[2016-10-31 15:11] VITALS: PULSE 85
--- NOTE | 2016-10-31 20:14 | PN ---
DATE: REASON FOR CONSULTATION: Followup decompensated congestive heart failure acute on chronic, coronary artery disease, and CABG status post abdominal paracentesis. SUBJECTIVE: Feels lousy and hungry. Does not get required food. Denies any chest pain or shortness of breath. OBJECTIVE: GENERAL: Lying in the bed, not in apparent distress. VITAL SIGNS: Temperature afebrile, heart rate 85, and blood pressure 115/75. HEENT: PERRLA. Extraocular muscles intact. NECK: Supple. No carotid bruits. No thyromegaly. CHEST: Clear to auscultation. HEART: S1 and S2 regular. ABDOMEN: Soft. EXTREMITIES: Clubbing and cyanosis negative. LABORATORY DATA: Blood workup as follows WBC 4.5, hemoglobin 12.5, hematocrit 40.5, and platelet count 146 as of 10/28/2016. Today, blood sugar is . IMPRESSION: Acute decompensated congestive heart failure, acute on chronic systolic dysfunction, cardiomyopathy ischemic, history of coronary artery stents, history of myocardial infarction, history of tissue plasminogen activator, history of over the course of multiple percutaneous transluminal coronary angioplasties and coronary artery bypass graft and mitral valve repair, history of automatic implantable cardioverter-defibrillator paroxysmal atrial fibrillation on anticoagulation, off diabetic pills because of recurrent hypoglycemia, end-stage cardiomyopathy, and multiple abdominal paracentesis. RECOMMENDATIONS: Continue current medication including digoxin, Coumadin, and Lasix. We will follow with you. Thank you Dr. Valdez for providing us the opportunity in taking care of the patient, Chasidy Alicia. We will follow with you. Tonia Quinteros MD
== END 2016-10-31 16:33 | DRG 292 ==
LOC: ED 15:09 → ERH 21:08 → 3RSO 23:25 → OBSVTOIN 10-27 13:16 → 2RNO 10-27 15:06
PROVIDERS: ADMIT Internal Medicine; ATTEND Internal Medicine
PROC: 0W9G3ZZ Drainage of Peritoneal Cavity, Percutaneous Approach (ICD-10-PCS; principal; 2016-10-27 14:00)
DX: I11.0 Hypertensive heart disease with heart failure (principal); R18.8 Other ascites; E46 Unspecified protein-calorie malnutrition; I50.23 Acute on chronic systolic (congestive) heart failure; I48.0 Paroxysmal atrial fibrillation; I08.3 Combined rheumatic disorders of mitral, aortic and tricuspid valves; E11.9 Type 2 diabetes mellitus without complications; I25.5 Ischemic cardiomyopathy; I48.2 Chronic atrial fibrillation; I25.10 Atherosclerotic heart disease of native coronary artery without angina pectoris; E78.5 Hyperlipidemia, unspecified; I25.2 Old myocardial infarction; Z68.23 Body mass index [BMI] 23.0-23.9, adult; Z95.810 Presence of automatic (implantable) cardiac defibrillator; Z95.1 Presence of aortocoronary bypass graft; Z79.01 Long term (current) use of anticoagulants; Z95.5 Presence of coronary angioplasty implant and graft

== ENCOUNTER 2016-10-31 15:57 | Inpatient (IN) | payer OTHER ==
[2016-10-31 16:42] VITALS: BMI 22.4
[2016-11-01 05:52] LABS: BASO # 0.01 K/mm3 (0.0-2.0); BASO % 0.2 % (0.0-3.0); EOS # 0.1 (0.0-0.7); EOS % 1.2 % (1.5-5.0); GRAN # 2.87 (1.4-6.5); GRAN % 69.2 % (50.0-68.0); LYMPH # 0.9 (1.2-3.4); LYMPH % 21.7 % (22.0-35.0); MEAN CELL VOLUME 85.1 fl (80.0-105.0); MEAN CORPUSCULAR HEMOGLOBIN 26.6 pg (25.0-35.0); MEAN CORPUSCULAR HGB CONC 31.3 g/dl (31.0-37.0); MEAN PLATELET VOLUME 10.2 fl (7.0-11.0); MONO # 0.3 (0.1-0.6); MONO % 7.7 % (1.0-6.0); WHITE BLOOD COUNT 4.2 10^3/ul (4.5-11.0)
[2016-11-01 06:04] LABS: INR 1.38 (0.93-1.08)
[2016-11-01 06:17] LABS: ALB/GLOB RATIO 0.9 (1.1-1.8); ALKALINE PHOSPHATASE 149 U/L (38-126); ALT/SGPT 34 U/L (7-56); AST/SGOT 28 U/L (14-36); BILIRUBIN,TOTAL 0.5 mg/dL (0.2-1.3); BLOOD UREA NITROGEN 35 mg/dL (7-21); CALCIUM 8.6 mg/dL (8.4-10.5); CARBON DIOXIDE 34 mmol/L (21-33); CHLORIDE 93 mmol/L (95-110); GFR AFRICAN-AMERICAN > 60; GLUCOSE,RANDOM 156 mg/dL (70-110); POTASSIUM 4.1 mmol/L (3.6-5.0); SODIUM 136 mmol/L (132-148)
--- NOTE | 2016-11-01 11:43 | CP.PCM.HP ---
History of Present Illness - History of Present Illness History of Present Illness: 71 yo female h/o CAD s/p CABG, ischemic CM with recurrent hosp adm for CHF, ascites, s/p paracentesis. TRCU admission for deconditioning and gait dysfunction s/p hosp. Present on Admission - Present on Admission Any Indicators Present on Admission: No Review of Systems - Constitutional Constitutional: Fatigue, Malaise, Weakness - EENT Ears: Decreased Hearing - Cardiovascular Cardiovascular: Dyspnea on Exertion, Edema, Orthopnea - Gastrointestinal Gastrointestinal: Abdominal Pain - Musculoskeletal Musculoskeletal: Abnormal Gait, Muscle Weakness - Neurological Neurological: Abnormal Gait, Abnormal Hearing - Psychiatric Psychiatric: Behavioral Changes, Depression, Irritability Past Patient History - Infectious Disease Hx of Infectious Diseases: None - Tetanus Immunizations Tetanus Immunization: Unknown - Past Social History Smoking Status: Former Smoker Home Situation {Lives}: With Family - CARDIAC Hx Cardiac Disorders: Yes ([place] , CAD) Hx Congestive Heart Failure: Yes Hx Hypertension: Yes Hx Internal Defibrillator: Yes Hx Pacemaker: Yes - PULMONARY Hx Chronic Obstructive Pulmonary Disease (COPD): Yes - NEUROLOGICAL Hx Neurological Disorder: Yes Hx Transient Ischemic Attacks (TIA): Yes - HEENT Hx HEENT Problems: Yes Hx Deafness: Yes - RENAL Hx Chronic Kidney Disease: No - ENDOCRINE/METABOLIC Hx Diabetes Mellitus Type 2: Yes - HEMATOLOGICAL/ONCOLOGICAL Hx Blood Disorders: Yes Hx Cancer: Yes - INTEGUMENTARY Hx Dermatological Problems: Yes (HAS RAYNAUDS' DSE) Other/Comment: MOTTLED LEGS AND ARMS.PT. ON COUMADIN. 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 - MUSCULOSKELETAL/RHEUMATOLOGICAL Hx Falls: Yes - GASTROINTESTINAL Hx Gastrointestinal Disorders: Yes (ENTEROCOLITIS,COLECTOMY,TONSILLECTOMY) Hx Gall Bladder Disease: Yes (CHOLEYCYSTECTOMY) Hx Liver Failure: Yes Other/Comment: history of ascites/ paracenthesis done in the past - GENITOURINARY/GYNECOLOGICAL Hx Reproductive Disorders: No - PSYCHIATRIC Hx Substance Use: Yes - SURGICAL HISTORY Hx Appendectomy: Yes Hx Cholecystectomy: Yes Hx Coronary Stent: Yes (X3) Hx Open Heart Surgery: Yes Hx Orthopedic Surgery: Yes (laminectomy) Other/Comment: Herniated disc repair, partial colectomy, tonsilectomy - ANESTHESIA Hx Anesthesia: No Meds Allergies/Adverse Reactions: Allergies Allergy/AdvReac Type Severity Reaction Status Date / Time adhesive tape Allergy REDNESS Verified 10/26/16 15:17 naproxen Allergy VOMITING Verified 10/26/16 15:17 ciprofloxacin AdvReac ANAPHYLAXIS Verified 10/26/16 15:17 Physical Exam - Constitutional Appears: Cachectic, Chronically Ill - Head Exam Head Exam: ATRAUMATIC, NORMOCEPHALIC - Eye Exam Eye Exam: EOMI, PERRL - Neck Exam Neck exam: Positive for: Normal Inspection - Respiratory Exam Respiratory Exam: Rales - Cardiovascular Exam Cardiovascular Exam: REGULAR RHYTHM, Systolic Murmur - GI/Abdominal Exam GI & Abdominal Exam: Normal Bowel Sounds, Soft - Extremities Exam Extremities exam: Positive for: normal inspection - Neurological Exam Neurological exam: Abnormal Gait, Alert - Skin Skin Exam: Dry, Warm Results - Vital Signs Recent Vital Signs: Last Vital Signs Temp 97.9 F 10/31/16 17:19 Pulse 79 10/31/16 17:19 Resp 20 10/31/16 17:19 BP 114/68 10/31/16 21:30 Pulse Ox 99 10/31/16 17:19 - Labs Result Diagrams: 11/01/16 05:20 11/01/16 05:20 Labs: Laboratory Results - last 24 hr 10/31/16 11/01/16 11/01/16 21:43 04:52 05:20 WBC 4.2 L RBC 4.70 Hgb 12.5 Hct 40.0 MCV 85.1 MCH 26.6 MCHC 31.3 RDW 16.0 H Plt Count 168 MPV 10.2 Gran % 69.2 H Lymph % (Auto) 21.7 L [place] % (Auto) 7.7 H Eos % (Auto) 1.2 L Baso % (Auto) 0.2 Gran # 2.87 Lymph # 0.9 L [place] # 0.3 Eos # 0.1 Baso # 0.01 PT INR APTT Sodium Potassium Chloride Carbon Dioxide Anion Gap BUN Creatinine Est GFR ( Amer) Est GFR (Non-Af Amer) POC Glucose (mg/dL) 176 H 173 H Random Glucose Calcium Total Bilirubin AST ALT Alkaline Phosphatase Total Protein Albumin Globulin Albumin/Globulin Ratio 11/01/16 11/01/16 05:20 05:20 WBC RBC Hgb Hct MCV MCH MCHC RDW Plt Count MPV Gran % Lymph % (Auto) [place] % (Auto) Eos % (Auto) Baso % (Auto) Gran # Lymph # [place] # Eos # Baso # PT 14.9 H INR 1.38 H APTT 32.0 H Sodium 136 Potassium 4.1 Chloride 93 L Carbon Dioxide 34 H Anion Gap 13 BUN 35 H Creatinine 0.9 Est GFR ( Amer) > 60 Est GFR (Non-Af Amer) > 60 POC Glucose (mg/dL) Random Glucose 156 H Calcium 8.6 Total Bilirubin 0.5 AST 28 ALT 34 Alkaline Phosphatase 149 H D Total Protein 7.0 Albumin 3.3 Globulin 3.7 Albumin/Globulin Ratio 0.9 L Assessment & Plan (1) CHF (congestive heart failure) Status: Chronic (2) COPD (chronic obstructive pulmonary disease) Status: Chronic (3) Type II diabetes mellitus Status: Chronic - Assessment and Plan (Free Text) Plan: admit TRCU, cardiology consult, PT & SW for dc planning - Date & Time Date: 11/01/16 Time: 09:45
[2016-11-01] MEDS: Digoxin 250 mcg (0.25 mg) Tab PO SCH (13:23)
[2016-11-01] MEDS: Insulin Reg-LOW-Coverage SC SCH ×2 (17:14→23:50)
--- NOTE | 2016-11-02 00:23 | CON ---
DATE: 11/01/2016 CONSULT SERVICE: Cardiology. REASON FOR CONSULTATION: Continuity of the care in transitional care unit. BRIEF MEDICAL HISTORY: A 71-year-old female with past medical history significant for coronary artery disease status post CABG, admitted with decompensated congestive heart failure, ascites status post abdominal paracentesis done. The patient was initially admitted to acute medical floor 2R, later on transferred to the transitional care for continuity of care. The patient denies any chest pain, shortness of breath, or any palpitation. PAST MEDICAL HISTORY: Significant for longstanding history of coronary artery disease, history of inferior wall CA, history of TPA in 1989 followed by subsequent multiple PTCAs, and later on the patient had coronary artery bypass surgery and MV repair at [facility]. Later on, the patient had AICD at [facility]. History of atrial fibrillation, on anticoagulation. History of diabetes, was on oral hypoglycemic agent but because of the recurrent hypoglycemia, was discontinued. Multiple admissions with decompensated congestive heart failure and ascites, admitted for decompensated congestive heart failure and the patient was started on Dobutrex, now transferring to transitional care for continuity of care. Status post thoracentesis, 5.1 L of the fluid was drained. PAST SURGICAL HISTORY: Significant for incarcerated hernia, abdominal surgery, history of multiple abdominal paracentesis, history of coronary artery bypass, and history of AICD in the past. PREVIOUS CARDIAC WORKUP: As follows, the patient has a recent echo dated 04/14/2015, ejection fraction of 22-25%, [id number] MR *------* status post MV repair, [id number] mitral regurgitation, mitral valve area 1.3 cm2. Severe tricuspid regurgitation, RV systolic pressure of 51 dated 04/25/2015. REVIEW OF SYSTEMS: As per HPI. ALLERGIES: NAPROSYN AND CIPROFLOXACIN. PHYSICAL EXAMINATION: As follows: VITAL SIGNS: Temperature afebrile, heart rate 82, blood pressure 120/65. HEENT: PERRLA. Extraocular muscles intact. NECK: Supple. No carotid bruits or thyromegaly. CHEST: Clear to auscultation. HEART: S1 and S2 regular. ABDOMEN: Soft. EXTREMITIES: Clubbing and cyanosis negative. LABORATORY DATA: Blood workup as follows: WBC 4.2, hemoglobin 12.6, hematocrit 40.0, and platelet count 168. Chemistry shows sodium 130, potassium 4.1, chloride of 93, carbon dioxide 34, anion gap of 13, BUN 35, creatinine 0.9. INR 1.38. IMPRESSION: Decompensated congestive heart failure, acute on chronic systolic dysfunction, status post automatic implantable cardioverter-defibrillator, status post coronary artery bypass surgery, history of multiple myocardial infarctions, multiple percutaneous transluminal coronary angioplasties pre and post coronary artery bypass graft, history of mitral valve repair, cardiac cachexia, status post recurrent pericardial effusion, status post abdominal paracentesis. RECOMMENDATIONS: Continue diuretics. Continue Coumadin. Goal is to keep INR between 2 and 2.5. INR is today 1.3, I gave 4 mg today, to start from 3 mg from tomorrow, get PT/INR in the morning. We will follow with you. Thank you Dr. Valdez for providing the opportunity in taking care of the patient, Chasidy Alicia. Tonia Quinteros MD
[2016-11-02 06:06] LABS: INR 1.5 (0.93-1.08)
[2016-11-02] MEDS: Insulin Reg-LOW-Coverage SC SCH ×4 (07:04→21:38)
[2016-11-02] MEDS: Digoxin 250 mcg (0.25 mg) Tab PO SCH (13:25)
--- NOTE | 2016-11-02 13:32 | CP.PCM.PN ---
Subjective - Date & Time of Evaluation Date of Evaluation: 11/02/16 Time of Evaluation: 09:45 - Subjective Subjective: NAD Objective - Vital Signs/Intake and Output Vital Signs (last 24 hours): Temp Pulse Resp BP Pulse Ox 97.9 F 80 18 97/71 L 95 11/02/16 06:00 11/02/16 06:00 11/02/16 06:00 11/02/16 06:15 11/02/16 06:00 Intake and Output: 11/02/16 11/02/16 06:59 18:59 Intake Total 480 Balance 480 - Medications Medications: Current Medications Digoxin (Lanoxin) 0.25 mg PO 1400 FARIHA PRN Reason: Protocol Last Admin: 11/02/16 13:25 Dose: 0.25 mg Diphenhydramine HCl (Benadryl) 25 mg PO HS PRN; Protocol PRN Reason: Insomnia Last Admin: 11/01/16 21:41 Dose: 25 mg Famotidine (Pepcid) 20 mg PO 1000,2200 FARIHA PRN Reason: Protocol Last Admin: 11/02/16 10:26 Dose: Not Given Furosemide (Lasix) 80 mg PO Q12H FARIHA PRN Reason: Protocol Last Admin: 11/02/16 06:15 Dose: Not Given Insulin Human Regular (Humulin R Low) 0 units SC ACHS FARIHA PRN Reason: Protocol Last Admin: 11/02/16 13:24 Dose: Not Given Warfarin Sodium (Coumadin) 3 mg PO 1800 FARIHA PRN Reason: Protocol Warfarin Sodium (Coumadin) 2 mg PO 1800 ONE PRN Reason: Protocol Stop: 11/02/16 17:01 - Labs Labs: 11/01/16 05:20 11/01/16 05:20 PT 16.2 Seconds (9.9-11.8) H 11/02/16 05:15 INR 1.50 (0.93-1.08) H 11/02/16 05:15 APTT 32.0 Seconds (23.7-30.8) H 11/01/16 05:20 - Respiratory Exam Respiratory Exam: Clear to Ausculation Bilateral, NORMAL BREATHING PATTERN - Cardiovascular Exam Cardiovascular Exam: REGULAR RHYTHM - GI/Abdominal Exam GI & Abdominal Exam: Soft, Normal Bowel Sounds - Back Exam Back Exam: NORMAL INSPECTION - Neurological Exam Neurological Exam: Alert, Awake - Skin Skin Exam: Dry, Warm Assessment and Plan (1) CHF (congestive heart failure) Status: Chronic (2) COPD (chronic obstructive pulmonary disease) Status: Chronic (3) Type II diabetes mellitus Status: Chronic - Assessment and Plan (Free Text) Plan: continue PT, SW for DC planning
--- NOTE | 2016-11-02 13:35 | PN ---
DATE: 11/02/2016 LOCATION: Room 317, bed 1. REASON FOR CONSULTATION AND FOLLOWUP: Congestive heart failure, acute on chronic LV systolic failure, coronary artery disease, status post coronary bypass surgery, status post mitral valve repair, atrial fibrillation, status post AICD insertion. SUBJECTIVE: The patient is lying in bed comfortably without any respiratory distress, denies chest pain or shortness of breath or palpitations at this point. PHYSICAL EXAMINATION: VITAL SIGNS: Blood pressure 97/71, respirations 20, pulse 80, temperature 97.9. HEENT: Head is normocephalic. Eyes, pupils normal. Conjunctivae normal. Nose and throat, normal. NECK: JVP low. Carotids equal. Thorax, AP diameter normal. LUNGS: No significant rales. CARDIOVASCULAR: S1 and S2. Pansystolic murmur, grade 3/6. No rub. ABDOMEN: Ascites, status post paracentesis. EXTREMITIES: No clubbing. No cyanosis. LABORATORY DATA: WBC 4.2, hemoglobin 12.5, hematocrit 40.0, platelet 168. Sodium 136, potassium 4.1, BUN 35, creatinine 0.9, and random sugar 189. AST and ALT normal. Total albumin 3.3. DIAGNOSES: Recurrent congestive heart failure, acute on chronic left ventricular systolic failure, coronary artery disease, status post coronary artery bypass surgery, status post multiple angioplasties prior to bypass and post bypass surgery, mitral valve repair, status post automatic implantable cardioverter defibrillator insertion, recurrent ascites, status post paracentesis, chronic atrial fibrillation, diabetes mellitus, cardiac cachexia. PLAN: The patient is on warfarin 3 mg daily, digoxin 0.25 daily, furosemide 80 mg p.o. q.12 hours. Prothrombin time 16.2 and INR 1.50, it is low, so we will give another Coumadin 2 mg today, total dose today will be 5 mg. We will follow PT and INR. We will follow with you. Tonia Roy MD
[2016-11-03 05:54] LABS: INR 1.86 (0.93-1.08)
[2016-11-03] MEDS: Insulin Reg-LOW-Coverage SC SCH ×4 (06:30→23:40)
--- NOTE | 2016-11-03 09:49 | CP.PCM.PN ---
Subjective - Date & Time of Evaluation Date of Evaluation: 11/03/16 Time of Evaluation: 09:40 - Subjective Subjective: NAD, no cp, no SOB Objective - Vital Signs/Intake and Output Vital Signs (last 24 hours): Temp Pulse Resp BP Pulse Ox 98.7 F 78 20 102/63 95 11/02/16 17:38 11/02/16 17:38 11/02/16 17:38 11/03/16 05:45 11/02/16 17:38 - Medications Medications: Current Medications Digoxin (Lanoxin) 0.25 mg PO 1400 FARIHA PRN Reason: Protocol Last Admin: 11/02/16 13:25 Dose: 0.25 mg Diphenhydramine HCl (Benadryl) 25 mg PO HS PRN; Protocol PRN Reason: Insomnia Last Admin: 11/01/16 21:41 Dose: 25 mg Famotidine (Pepcid) 20 mg PO 1000,2200 FARIHA PRN Reason: Protocol Last Admin: 11/02/16 21:39 Dose: Not Given Furosemide (Lasix) 80 mg PO Q12H FARIHA PRN Reason: Protocol Last Admin: 11/03/16 05:45 Dose: 80 mg Insulin Human Regular (Humulin R Low) 0 units SC ACHS FARIHA PRN Reason: Protocol Last Admin: 11/03/16 06:30 Dose: Not Given Warfarin Sodium (Coumadin) 3 mg PO 1800 FARIHA PRN Reason: Protocol Last Admin: 11/02/16 17:19 Dose: 3 mg - Labs Labs: 11/01/16 05:20 11/01/16 05:20 PT 20.1 Seconds (9.9-11.8) H 11/03/16 05:20 INR 1.86 (0.93-1.08) H 11/03/16 05:20 APTT 32.0 Seconds (23.7-30.8) H 11/01/16 05:20 - Respiratory Exam Respiratory Exam: Clear to Ausculation Bilateral, NORMAL BREATHING PATTERN - Cardiovascular Exam Cardiovascular Exam: REGULAR RHYTHM, Murmur - GI/Abdominal Exam GI & Abdominal Exam: Soft, Normal Bowel Sounds - Extremities Exam Extremities Exam: Normal Inspection - Neurological Exam Neurological Exam: Alert, Awake - Skin Skin Exam: Diaphoretic, Warm Assessment and Plan (1) CHF (congestive heart failure) Status: Chronic (2) COPD (chronic obstructive pulmonary disease) Status: Chronic (3) Type II diabetes mellitus Status: Chronic - Assessment and Plan (Free Text) Plan: continue PT, SW for dc planning
[2016-11-03] MEDS: Digoxin 250 mcg (0.25 mg) Tab PO SCH (14:41)
--- NOTE | 2016-11-03 19:53 | PN ---
REASON FOR CONSULTATION AND FOLLOWUP: Continued care in the transition care unit, coronary artery disease, status post CABG, status post AICD, decompensated congestive heart failure, [id number] systolic dysfunction. SUBJECTIVE: The patient denies any chest pain, shortness of breath, complained of being hungry. OBJECTIVE: GENERAL: Lying flat on the bed, not in apparent distress. VITAL SIGNS: As follows, temperature afebrile, heart rate 74, and blood pressure 105/41. HEENT: PERRLA. Extraocular muscles intact. NECK: Supple. No carotid bruits or thyromegaly. CHEST: Clear to auscultation. HEART: S1 and S2, regular. ABDOMEN: Soft. EXTREMITIES: Clubbing and cyanosis negative. LABORATORY DATA: Blood workup as follows: WBC 4.8, hemoglobin 12.1, hematocrit 40.2, and platelet count 168. Chemistry shows sodium 136, potassium 4.0, chloride 93, carbon dioxide 34, anion gap of 13, BUN 35, and creatinine 0.9. IMPRESSION: A 71-year-old female with past medical history significant for coronary artery disease, coronary artery bypass grafting, cardiomyopathy, decreased left ventricular function, admitted with acute decompensated congestive heart failure with [id number] systolic dysfunction, history of multiple angioplasties, pre and post coronary artery bypass grafting, status post mitral valve repair, status post defibrillator, admitted with decompensated congestive heart failure, status post abdominal paracentesis with 5.1 liter fluid drained, and history of cardiac cachexia. RECOMMENDATIONS: Continue anticoagulation. Goal is to keep INR between 2 and 2.5. INR is creeping at 1.86. Two doses of Coumadin given, 3 yesterday. We will continue today. We will start Coumadin 3 mg daily. PT/INR in the morning. Continue digoxin. We will follow with you. Thank you Dr. Valdez for providing the opportunity in taking care of the patient Chasidy Alicia. Tonia Quinteros MD
[2016-11-04] MEDS: Insulin Reg-LOW-Coverage SC SCH ×4 (06:43→22:06)
[2016-11-04 09:06] LABS: INR 1.93 (0.93-1.08)
--- NOTE | 2016-11-04 11:20 | CP.PCM.PN ---
Subjective - Date & Time of Evaluation Date of Evaluation: 11/04/16 Time of Evaluation: 11:15 - Subjective Subjective: NAD Objective - Vital Signs/Intake and Output Vital Signs (last 24 hours): Temp Pulse Resp BP Pulse Ox 97.9 F 79 18 124/75 98 11/04/16 11:17 11/04/16 11:17 11/04/16 11:17 11/04/16 11:17 11/04/16 11:17 Intake and Output: 11/04/16 11/04/16 06:59 18:59 Intake Total 640 Balance 640 - Medications Medications: Current Medications Digoxin (Lanoxin) 0.25 mg PO 1400 FARIHA PRN Reason: Protocol Last Admin: 11/03/16 14:41 Dose: 0.25 mg Diphenhydramine HCl (Benadryl) 25 mg PO HS PRN; Protocol PRN Reason: Insomnia Last Admin: 11/01/16 21:41 Dose: 25 mg Famotidine (Pepcid) 20 mg PO 1000,2200 FARIHA PRN Reason: Protocol Last Admin: 11/04/16 10:03 Dose: 20 mg Furosemide (Lasix) 80 mg PO Q12H FARIHA PRN Reason: Protocol Last Admin: 11/04/16 06:28 Dose: 80 mg Insulin Human Regular (Humulin R Low) 0 units SC ACHS FARIHA PRN Reason: Protocol Last Admin: 11/04/16 06:43 Dose: 3 units Warfarin Sodium (Coumadin) 3 mg PO 1800 FARIHA PRN Reason: Protocol Last Admin: 11/03/16 17:50 Dose: 3 mg - Labs Labs: 11/01/16 05:20 11/01/16 05:20 PT 20.8 Seconds (9.9-11.8) H 11/04/16 08:30 INR 1.93 (0.93-1.08) H 11/04/16 08:30 APTT 32.0 Seconds (23.7-30.8) H 11/01/16 05:20 - Respiratory Exam Respiratory Exam: Clear to Ausculation Bilateral, NORMAL BREATHING PATTERN - Cardiovascular Exam Cardiovascular Exam: REGULAR RHYTHM - GI/Abdominal Exam GI & Abdominal Exam: Soft, Normal Bowel Sounds - Extremities Exam Extremities Exam: Normal Inspection - Neurological Exam Neurological Exam: Alert, Awake - Skin Skin Exam: Dry, Warm Assessment and Plan (1) CHF (congestive heart failure) Status: Chronic (2) COPD (chronic obstructive pulmonary disease) Status: Chronic (3) Type II diabetes mellitus Status: Chronic - Assessment and Plan (Free Text) Plan: continue PT, SW for DC planning
[2016-11-04] MEDS: Digoxin 250 mcg (0.25 mg) Tab PO SCH (15:04)
--- NOTE | 2016-11-04 18:25 | PN ---
DATE: 11/04/2016 LOCATION: 317 Bed 1 REASON FOR CONSULTATION: Decompensated congestive heart failure, acute on chronic LV systolic dysfunction, coronary artery disease, history of CABG, ischemic cardiomyopathy status post AICD insertion,and atrial fibrillation. SUBJECTIVE: The patient lying comfortably in bed without chest pain, respiratory distress, or palpitation. PHYSICAL EXAMINATION VITAL SIGNS: Blood pressure 124/75, respiration 18, pulse 79, temperature 97.9. HEENT: Head is normocephalic. Eyes, pupils normal. Conjunctivae normal. Nose and throat, normal. NECK: JVD low. Carotids equal. Thorax, AP diameter normal. LUNGS: No rales. CARDIOVASCULAR: S1 and S2. Pansystolic murmur, grade 3/6. No rub. ABDOMEN: Soft. Bowel sounds present. Some ascites present. EXTREMITIES: No clubbing. No cyanosis. LABORATORY DATA: WBC 4.2, hemoglobin 12.5, hematocrit 40.0. Random sugar 203. Sodium 136, potassium 4.1, BUN 35, creatinine 0.9. Total protein and albumin normal. DIAGNOSES: 1. Coronary artery disease. 2. Coronary artery bypass graft surgery. 3. Cardiomyopathy ischemic. 4. Congestive heart failure. 5. Acute on chronic left ventricular systolic failure. 6. Chronic atrial fibrillation. 7. Multiple angioplasty prior to coronary artery bypass graft and also post coronary artery bypass graft, status post mitral valve repair, status post automatic implantable cardioverter defibrillator insertion. 8. Ascites status post paracentesis with 5 mL fluid drain. 9. Cardiac cachexia. 10. History of diabetes. PLAN: The patient's prothrombin time is 21.8, INR 1.93. The patient is on warfarin 3 mg p.o. daily, digoxin 0.25 mg p.o. daily, furosemide 80 mg p.o. q.12 hours, Pepcid 20 mg p.o. daily. We will check PT/INR in the morning. The patient is getting physical therapy in the meantime. We will follow with you. Tonia Roy MD cc:
[2016-11-05] MEDS: Insulin Reg-LOW-Coverage SC SCH ×4 (06:46→22:23)
[2016-11-05 06:57] LABS: INR 1.87 (0.93-1.08)
--- NOTE | 2016-11-05 14:05 | CP.PCM.PN ---
Subjective - Date & Time of Evaluation Date of Evaluation: 11/05/16 Time of Evaluation: 13:30 - Subjective Subjective: NAD, no cp, no SOB Objective - Vital Signs/Intake and Output Vital Signs (last 24 hours): Temp Pulse Resp BP Pulse Ox 98.5 F 88 20 108/64 99 11/05/16 10:47 11/05/16 10:47 11/05/16 10:47 11/05/16 10:47 11/05/16 10:47 Intake and Output: 11/05/16 11/05/16 06:59 18:59 Intake Total 900 Balance 900 - Medications Medications: Current Medications Digoxin (Lanoxin) 0.25 mg PO 1400 FARIHA PRN Reason: Protocol Last Admin: 11/04/16 15:04 Dose: 0.25 mg Diphenhydramine HCl (Benadryl) 25 mg PO HS PRN; Protocol PRN Reason: Insomnia Last Admin: 11/01/16 21:41 Dose: 25 mg Famotidine (Pepcid) 20 mg PO 1000,2200 FARIHA PRN Reason: Protocol Last Admin: 11/05/16 09:22 Dose: 20 mg Furosemide (Lasix) 80 mg PO Q12H FARIHA PRN Reason: Protocol Last Admin: 11/05/16 06:45 Dose: 80 mg Insulin Human Regular (Humulin R Low) 0 units SC ACHS FARIHA PRN Reason: Protocol Last Admin: 11/05/16 12:20 Dose: 1 units Warfarin Sodium (Coumadin) 3 mg PO 1800 FARIHA PRN Reason: Protocol Last Admin: 11/04/16 17:28 Dose: 3 mg - Labs Labs: 11/01/16 05:20 11/01/16 05:20 PT 20.2 Seconds (9.9-11.8) H 11/05/16 06:00 INR 1.87 (0.93-1.08) H 11/05/16 06:00 APTT 32.0 Seconds (23.7-30.8) H 11/01/16 05:20 - Respiratory Exam Respiratory Exam: Clear to Ausculation Bilateral, NORMAL BREATHING PATTERN - Cardiovascular Exam Cardiovascular Exam: REGULAR RHYTHM - GI/Abdominal Exam GI & Abdominal Exam: Soft, Normal Bowel Sounds - Neurological Exam Neurological Exam: Alert, Awake - Skin Skin Exam: Dry, Warm Assessment and Plan (1) CHF (congestive heart failure) Status: Chronic (2) COPD (chronic obstructive pulmonary disease) Status: Chronic (3) Type II diabetes mellitus Status: Chronic - Assessment and Plan (Free Text) Plan: continue PT/SW for dc planning
[2016-11-05] MEDS: Digoxin 250 mcg (0.25 mg) Tab PO SCH (14:28)
[2016-11-06] MEDS: Insulin Reg-LOW-Coverage SC SCH ×3 (06:43→17:15)
[2016-11-06 06:57] VITALS: RESP 18
--- NOTE | 2016-11-06 12:45 | CP.PCM.PN ---
Subjective - Date & Time of Evaluation Date of Evaluation: 11/06/16 Time of Evaluation: 12:30 - Subjective Subjective: NAD, no CP, no SOB Objective - Vital Signs/Intake and Output Vital Signs (last 24 hours): Temp Pulse Resp BP Pulse Ox 98.7 F 80 18 124/76 92 L 11/06/16 10:35 11/06/16 10:35 11/06/16 10:35 11/06/16 10:35 11/06/16 10:35 Intake and Output: 11/06/16 11/06/16 06:59 18:59 Intake Total 680 Balance 680 - Medications Medications: Current Medications Digoxin (Lanoxin) 0.25 mg PO 1400 FARIHA PRN Reason: Protocol Last Admin: 11/05/16 14:28 Dose: 0.25 mg Diphenhydramine HCl (Benadryl) 25 mg PO HS PRN; Protocol PRN Reason: Insomnia Last Admin: 11/06/16 03:00 Dose: 25 mg Famotidine (Pepcid) 20 mg PO 1000,2200 FARIHA PRN Reason: Protocol Last Admin: 11/06/16 09:27 Dose: 20 mg Furosemide (Lasix) 80 mg PO Q12H FARIHA PRN Reason: Protocol Last Admin: 11/06/16 06:42 Dose: 80 mg Insulin Human Regular (Humulin R Low) 0 units SC ACHS FARIHA PRN Reason: Protocol Last Admin: 11/06/16 11:56 Dose: 2 units Warfarin Sodium (Coumadin) 3 mg PO 1800 FARIHA PRN Reason: Protocol Last Admin: 11/05/16 17:17 Dose: 3 mg - Labs Labs: 11/01/16 05:20 11/01/16 05:20 PT 20.2 Seconds (9.9-11.8) H 11/05/16 06:00 INR 1.87 (0.93-1.08) H 11/05/16 06:00 APTT 32.0 Seconds (23.7-30.8) H 11/01/16 05:20 - Respiratory Exam Respiratory Exam: Clear to Ausculation Bilateral, NORMAL BREATHING PATTERN - Cardiovascular Exam Cardiovascular Exam: REGULAR RHYTHM - GI/Abdominal Exam GI & Abdominal Exam: Soft, Normal Bowel Sounds - Extremities Exam Extremities Exam: Normal Inspection - Neurological Exam Neurological Exam: Alert, Awake - Skin Skin Exam: Dry, Warm Assessment and Plan (1) CHF (congestive heart failure) Status: Chronic (2) COPD (chronic obstructive pulmonary disease) Status: Chronic (3) Type II diabetes mellitus Status: Chronic - Assessment and Plan (Free Text) Plan: SW for DC planning, medically stable
[2016-11-06] MEDS: Digoxin 250 mcg (0.25 mg) Tab PO SCH (13:32)
[2016-11-06 13:33] VITALS: PULSE 71
[2016-11-06 16:42] VITALS: BP 107/74; PULSE 81; TEMP 97.6; O2SAT 99
== END 2016-11-06 18:36 | disposition home or self-care (01) | DRG 91 ==
LOC: TRCU 15:57
PROVIDERS: ADMIT Internal Medicine; ATTEND Internal Medicine
PROC: F07Z9ZZ Gait Training/Functional Ambulation Treatment (ICD-10-PCS; principal; 2016-11-01)
PROC: F08Z4ZZ Home Management Treatment (ICD-10-PCS; 2016-11-01)
DX: R26.89 Other abnormalities of gait and mobility (principal); I50.23 Acute on chronic systolic (congestive) heart failure; R64 Cachexia; R18.8 Other ascites; I48.2 Chronic atrial fibrillation; I36.1 Nonrheumatic tricuspid (valve) insufficiency; I11.0 Hypertensive heart disease with heart failure; J44.9 Chronic obstructive pulmonary disease, unspecified; I25.5 Ischemic cardiomyopathy; I25.10 Atherosclerotic heart disease of native coronary artery without angina pectoris; I73.00 Raynaud's syndrome without gangrene; E11.9 Type 2 diabetes mellitus without complications; Z79.01 Long term (current) use of anticoagulants; I25.2 Old myocardial infarction; Z86.73 Personal history of transient ischemic attack (TIA), and cerebral infarction without residual deficits; Z95.810 Presence of automatic (implantable) cardiac defibrillator; Z95.1 Presence of aortocoronary bypass graft; Z95.5 Presence of coronary angioplasty implant and graft; Z87.891 Personal history of nicotine dependence; Z90.49 Acquired absence of other specified parts of digestive tract

== ENCOUNTER 2016-11-17 13:48 | Inpatient (IN) | payer MEDICARE, OTHER ==
[2016-11-17 14:11] VITALS: BMI 27.4
--- NOTE | 2016-11-17 14:21 | ED PDOC ---
Arrival/HPI - General Time Seen by Provider: 11/17/16 13:56 Historian: Patient - History of Present Illness Narrative History of Present Illness (Text): 11/17/16 14:04 A 71 year old female, whose past medical history includes COPD, CHF, CABG, Ascites, and DM, presents to the emergency department complaining of shortness of breath and abdominal pain. She states shortness of breath worsens when ambulating. Abdominal pain is intermittent and epigastric. Patient notes also experiencing itchiness all over arms, shoulders, and upper back, and wheezing, but denies of any chest pain or any other complaints at this time. PMD: Dr. Garcia Valdez Past Medical History - Provider Review Nursing Documentation Reviewed: Yes - Infectious Disease Hx of Infectious Diseases: None - Tetanus Immunization Tetanus Immunization: Unknown - Cardiac Hx Cardiac Disorders: Yes ([place] , CAD) Hx Pacemaker: Yes (2008) - Pulmonary Hx Chronic Obstructive Pulmonary Disease (COPD): Yes - Neurological Hx Neurological Disorder: Yes Hx Transient Ischemic Attacks (TIA): Yes - HEENT Hx HEENT Disorder: Yes Hx Deafness: Yes - Renal Hx Renal Disorder: No - Endocrine/Metabolic Hx Diabetes Mellitus Type 2: Yes - Hematological/Oncological Hx Blood Disorders: Yes Hx Cancer: Yes - Integumentary Hx 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 ON COUMADIN. 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 - Musculoskeletal/Rheumatological Hx Falls: Yes - Gastrointestinal Hx Gastrointestinal Disorders: Yes (ENTEROCOLITIS,COLECTOMY,TONSILLECTOMY) Hx Gall Bladder Disease: Yes (CHOLEYCYSTECTOMY) Hx Liver Failure: Yes Other/Comment: history of ascites/ paracenthesis done in the past - Genitourinary/Gynecological Hx Reproductive Disorders: No - Psychiatric Hx Substance Use: Yes - Surgical History Hx Appendectomy: Yes Hx Cholecystectomy: Yes Hx Coronary Stent: Yes (X3) Hx Open Heart Surgery: Yes Hx Orthopedic Surgery: Yes (laminectomy) Other/Comment: Herniated disc repair, partial colectomy, tonsilectomy - Anesthesia Hx Anesthesia: No - Suicidal Assessment Feels Threatened In Home Enviroment: No Family/Social History - Physician Review Nursing Documentation Reviewed: Yes Family/Social History: No Known Family HX Smoking Status: Former Smoker Hx Alcohol Use: Yes Hx Substance Use: Yes Hx Substance Use Treatment: No Allergies/Home Meds Allergies/Adverse Reactions: Allergies adhesive tape Allergy (Verified 11/03/16 08:34) REDNESS naproxen Allergy (Verified 11/03/16 08:34) VOMITING ciprofloxacin Adverse Reaction (Verified 11/03/16 08:34) ANAPHYLAXIS Home Medications: Home Meds Medication Instructions Recorded Confirmed Simvastatin 20 mg PO DAILY 04/25/16 11/17/16 DiphenhydrAMINE [Benadryl] 2 tab PO HS 06/08/16 11/17/16 Review of Systems - Physician Review All systems were reviewed & negative as marked: Yes - Review of Systems Respiratory: SOB, Wheezing Cardiovascular: absent: Chest Pain Gastrointestinal: Abdominal Pain Skin: Pruritis (according to patient she is experiencing itchiness all over arms , shoulders, and upper back) Physical Exam Vital Signs Temp Pulse Resp BP Pulse Ox 11/17/16 18:38 64 20 121/72 94 L 11/17/16 15:08 118/72 11/17/16 13:48 98.9 F 60 18 118/72 - Systems Exam Head: Present: Atraumatic, Normocephalic Pupils: Present: PERRL Extroacular Muscles: Present: EOMI Conjunctiva: Present: Normal Mouth: Present: Moist Mucous Membranes Neck: Present: Normal Range of Motion Respiratory/Chest: Present: Wheezes (bilateral wheezing, +1 retractions) Cardiovascular: Present: Regular Rate and Rhythm, Normal S1, S2. No: Murmurs Abdomen: Present: Normal Bowel Sounds. No: Tenderness, Distention, Peritoneal Signs Back: Present: Normal Inspection Upper Extremity: Present: Normal Inspection. No: Cyanosis, Edema Lower Extremity: Present: Edema (trace edema), NORMAL PULSES (pulses equal bilaterally) Neurological: Present: GCS=15, CN II-XII Intact, Speech Normal Skin: Present: Warm, Dry, Normal Color. No: Rashes Psychiatric: Present: Alert, Oriented x 3, Normal Insight, Normal Concentration Medical Decision Making ED Course and Treatment: 11/17/16 14:10 Impression: 71 year old female with shortness of breath and abdominal pain. Differential Diagnosis included but are not limited to: COPD exacerbation vs CHF exacerbation Plan: -- EKG -- Chest X-ray -- Blood Gas -- Duoneb -- Lasix -- Solu-Medrol -- Blood Culture -- Urine Culture -- Urinalysis -- Reassess and disposition Prior Visits: Notes and results from previous visits were reviewed. Patient was last seen here in the emergency department on 10/27/2016 for abdominal pain. Patient was admitted. Progress Notes: EKG: Ordered, reviewed, and independently interpreted the EKG. Rate : 80 BPM Rhythm : Pace rhythm Interpretation : No ST-segment elevations or depressions, no T-wave inversions, normal intervals. Comparison : No previous EKG for comparison. 11/17/2016 15:23 Chest X-ray IMPRESSION: No active disease. Dictator: Yaw Zazueta MD 11/17/16 16:13 Patient on reevaluation had lungs that were clear. She still has symptoms of shortness of breathe. She doesn't feel comfortable going home. I discussed case with Dr. Valdez who states that we can admit her under his service. Requested Dr. Roy/[facility] for consult. - Lab Interpretations Lab Results: 11/17/16 14:45 11/17/16 14:45 Lab Results 11/17/16 15:47: pCO2 39, pO2 154.0 H, HCO3 26.5, ABG pH 7.44, ABG Total CO2 27.7 , ABG O2 Saturation 99.5 H, ABG O2 Content 19.1, ABG Base Excess 2.3, ABG Hemoglobin 14.0, ABG Carboxyhemoglobin 2.8 H, POC ABG HHb (Measured) 0.5, ABG Methemoglobin 0.9, ABG O2 Capacity 19.2, Hgb O2 Saturation 95.9, FiO2 30.0 11/17/16 15:34: Urine Color Yellow, Urine Appearance Clear, Urine pH 6.0, Ur Specific [place] 1.020, Urine Protein Trace H, Urine Glucose (UA) Negative, Urine Ketones Negative, Urine Blood Negative, Urine Nitrate Negative, Urine Bilirubin Negative, Urine Urobilinogen 0.2, Ur Leukocyte Esterase Negative, Urine RBC 0 - 2, Urine WBC Negative, Ur Epithelial Cells 1 - 3 11/17/16 14:45: Sodium 142, Chloride 102, Potassium 4.7, Carbon Dioxide 31, Anion Gap 14, BUN 16, Creatinine 0.8, Est GFR ( Amer) > 60, Est GFR (Non- Af Amer) > 60, Random Glucose 122 H, Calcium 8.9, Total Bilirubin 0.8, AST 27, ALT 22, Alkaline Phosphatase 154 H, Lactate Dehydrogenase 635, Total Creatine Kinase 64, Troponin I 0.02, NT-Pro-B Natriuret Pep 5270 H, Total Protein 7.9, Albumin 3.9, Globulin 4.0, Albumin/Globulin Ratio 1.0 L, Lipase 28 11/17/16 14:45: pO2 27 L, VBG pH 7.29 L, VBG pCO2 66.0 H*, VBG HCO3 31.7 H, VBG Total CO2 33.7 H, VBG O2 Sat (Calc) 53.2, VBG Base Excess 3.2 H, VBG Potassium 4.7, Sodium 138.0, Chloride 104.0, Glucose 125 H, Lactate 1.3, FiO2 21.0, Venous Blood Potassium 4.7 11/17/16 14:45: PT 18.5 H, INR 1.71 H, APTT 35.0 H 11/17/16 14:45: WBC 4.1 L, RBC 5.14, Hgb 14.0, Hct 44.5, MCV 86.6, MCH 27.2, MCHC 31.5, RDW 17.2 H, Plt Count 146, MPV 9.9, Gran % 75.8 H, Lymph % (Auto) 16.8 L, [place] % (Auto) 6.2 H, Eos % (Auto) 1.0 L, Baso % (Auto) 0.2, Gran # 3.07 , Lymph # 0.7 L, [place] # 0.3, Eos # 0.0, Baso # 0.01 I have reviewed the lab results: Yes - RAD Interpretation Radiology Orders: 11/17/16 14:21 CHEST PORTABLE [RAD] Stat - Medication Orders Current Medication Orders: Acetaminophen (Tylenol 325mg Tab) 650 mg PO Q4H PRN PRN Reason: Fever >100.5 F Albuterol/Ipratropium (Duoneb 3 Mg/0.5 Mg (3 Ml) Ud) 3 ml IH Q4H PRN PRN Reason: Shortness of Breath Ondansetron HCl (Zofran Inj) 4 mg IVP Q4H PRN PRN Reason: Nausea/Vomiting Discontinued Medications Albuterol/Ipratropium (Duoneb 3 Mg/0.5 Mg (3 Ml) Ud) 3 ml IH Q15M FARIHA Stop: 11/17/16 15:01 Last Admin: 11/17/16 18:30 Dose: 3 ml Furosemide (Lasix) 40 mg IVP STAT STA Stop: 11/17/16 14:22 Last Admin: 11/17/16 15:08 Dose: 40 mg MAR Blood Pressure Document 11/17/16 15:08 EQ (Rec: 11/17/16 15:08 EQ [id number]) Blood Pressure Blood Pressure (100/60-150/90) 118/72 IVP Administration Document 11/17/16 15:08 EQ (Rec: 11/17/16 15:08 EQ [id number]) Charges for Administration # of IVP Administrations 1 Methylprednisolone (Solu-Medrol) 125 mg IVP STAT STA Stop: 11/17/16 14:22 Last Admin: 11/17/16 15:08 Dose: 125 mg IVP Administration Document 11/17/16 15:08 EQ (Rec: 11/17/16 15:08 EQ [id number]) Charges for Administration # of IVP Administrations 1 - Scribe Statement The provider has reviewed the documentation as recorded by the Javier Mike Provider Scribe Attestation: All medical record entries made by the Adeleibjovanny were at my direction and personally dictated by me. I have reviewed the chart and agree that the record accurately reflects my personal performance of the history, physical exam, medical decision making, and the department course for this patient. I have also personally directed, reviewed, and agree with the discharge instructions and disposition. Disposition/Present on Arrival - Present on Arrival Any Indicators Present on Arrival: No History of DVT/PE: No History of Uncontrolled Diabetes: No Urinary Catheter: No History Surgical Site Infection Following: None - Disposition Have Diagnosis and Disposition been Completed?: Yes Diagnosis: CHF (congestive heart failure), COPD (chronic obstructive pulmonary disease) Disposition: HOSPITALIZED Disposition Time: 16:13 Patient Plan: Admission Condition: FAIR
[2016-11-17 15:06] LABS: VENOUS BLOOD GAS BASE EXCESS 3.2 mmol/L (0.0-2.0); VENOUS BLOOD PH 7.29 (7.32-7.43)
[2016-11-17] MEDS: Albuterol-Ipratrop 3 mg / 0.5 (3 ml) UD IH SCH ×2 (15:08→18:30)
[2016-11-17 15:14] LABS: BASO # 0.01 K/mm3 (0.0-2.0); BASO % 0.2 % (0.0-3.0); GRAN # 3.07 (1.4-6.5); GRAN % 75.8 % (50.0-68.0); HEMATOCRIT 44.5 % (36.0-48.0); LYMPH # 0.7 (1.2-3.4); LYMPH % 16.8 % (22.0-35.0); MEAN CELL VOLUME 86.6 fl (80.0-105.0); MEAN CORPUSCULAR HEMOGLOBIN 27.2 pg (25.0-35.0); MEAN CORPUSCULAR HGB CONC 31.5 g/dl (31.0-37.0); MEAN PLATELET VOLUME 9.9 fl (7.0-11.0); MONO # 0.3 (0.1-0.6); MONO % 6.2 % (1.0-6.0); RED CELL DISTRIBUTION WIDTH 17.2 % (11.5-14.5); WHITE BLOOD COUNT 4.1 10^3/ul (4.5-11.0)
[2016-11-17 15:20] LABS: ALKALINE PHOSPHATASE 154 U/L (38-126); ALT/SGPT 22 U/L (7-56); AST/SGOT 27 U/L (14-36); BILIRUBIN,TOTAL 0.8 mg/dL (0.2-1.3); BLOOD UREA NITROGEN 16 mg/dL (7-21); CALCIUM 8.9 mg/dL (8.4-10.5); CARBON DIOXIDE 31 mmol/L (21-33); CHLORIDE 102 mmol/L (98-107); GFR AFRICAN-AMERICAN > 60; GLUCOSE,RANDOM 122 mg/dL (70-110); INR 1.71 (0.93-1.08); LIPASE 28 U/L (23-300); POTASSIUM 4.7 mmol/L (3.6-5.0); SODIUM 142 mmol/L (132-148); TOTAL PROTEIN 7.9 g/dL (5.8-8.3)
--- NOTE | 2016-11-17 15:26 | RAD ---
HISTORY: sob r/o pna COMPARISON: 10/26/2016 FINDINGS: LUNGS: No active pulmonary disease. PLEURA: No significant pleural effusion identified, no pneumothorax apparent. CARDIOVASCULAR: Mild cardiomegaly. AICD. No congestive change. OSSEOUS STRUCTURES: No significant abnormalities. VISUALIZED UPPER ABDOMEN: Normal. OTHER FINDINGS: None. IMPRESSION: No active disease.
[2016-11-17 15:31] LABS: TROPONIN I 0.02 ng/mL
[2016-11-17 15:51] LABS: ARTERIAL BLOOD GAS HCO3 26.5 mmol/L (21-28); ARTERIAL BLOOD GAS O2 CAPACITY 19.2 mL/dl (16-24); ARTERIAL BLOOD GAS O2 CONTENT 19.1 ML/dl (15-23); ARTERIAL BLOOD GAS PH 7.44 (7.35-7.45); ARTERIAL BLOOD HGB O2 SAT 95.9 % (95.0-98.0); CARBOXYHEMOGLOBIN 2.8 % (0.5-1.5); HHB 0.5 % (0-5); METHEMOGLOBIN 0.9 % (0.0-3.0)
[2016-11-17 16:06] LABS: URINE BILIRUBIN NEGATIVE (NEGATIVE); URINE BLOOD NEGATIVE (NEGATIVE); URINE GLUCOSE (UA) NEGATIVE (NEGATIVE); URINE KETONE NEGATIVE (NEGATIVE); URINE LEUKOCYTE ESTERASE NEGATIVE Leu/uL (NEGATIVE); URINE PROTEIN TRACE mg/dL (<30 mg/dL); URINE UROBILINOGEN 0.2 E.U./dL (<1 E.U./dL)
[2016-11-17 16:10] LABS: URINE APPEARANCE CLEAR (CLEAR); URINE COLOR YELLOW (YELLOW)
[2016-11-17 16:20] LABS: URINE RBC 0 - 2 /hpf (0-2); URINE WBC NEGATIVE /hpf (0-6)
--- NOTE | 2016-11-17 17:30 | CARD ---
APPROVED REPORT EKG Measurement Heart [id number] 188P [id number] <Conclusion> Electronic ventricular pacemaker
[2016-11-17] MEDS: Albuterol-Ipratrop 3 mg / 0.5 (3 ml) UD IH PRN (22:29)
[2016-11-18] MEDS ORDERED: Insulin Regular 1 UNITS/0.01 ML ML SC STA (08:25)
[2016-11-18] MEDS: DOBUTamine 500mg/250ml D5W 500 MG/250 ML BAG IV PRN (11:27)
[2016-11-18] MEDS: Insulin Reg-MEDIUM-Coverage SC SCH ×3 (11:53→21:58)
[2016-11-18] MEDS: Digoxin 250 mcg (0.25 mg) Tab PO SCH (14:29)
--- NOTE | 2016-11-18 14:54 | CON ---
LOCATION: The patient is in room #260, bed #1. REASON FOR CONSULTATION: Coronary artery disease, congestive heart failure, ascites, cardiomyopathy, and atrial fibrillation. HISTORY OF PRESENT ILLNESS: A 71-year-old female, who has coronary artery disease, status post CABG and mitral valve repair, status post AICD insertion, admitted with shortness of breath and abdominal discomfort. Due to shortness of breath, the patient has to sit up. Denies nausea or vomiting. Denies chest pain or palpitation. PAST MEDICAL HISTORY: Significant for long-standing history of coronary artery disease and inferior wall ID. At that time, TPA was given in 1989 followed by subsequent multiple PTCAs, then later on coronary artery bypass surgery along with mitral valve repair at [facility]. Later on, the patient had AICD insertion also at [facility]. The patient known to have atrial fibrillation, on anticoagulation; history of diabetes, but was on oral hypoglycemic agent but continued to get multiple episodes of hypoglycemia, so oral hypoglycemic agent was stopped. PAST SURGICAL HISTORY: The patient has incarcerated hernia, abdominal surgery, history of multiple abdominal paracentesis, history of coronary artery bypass surgery, mitral valve repair, AICD insertion. PREVIOUS CARDIAC WORKUP: The patient's recent echo dated on 04/14/2015 showed LV ejection fraction of 22% to 25%; [id number] MR, status post mitral valve repair; [id number] mitral regurgitation, mitral valve area 1.3 cm sq; severe tricuspid regurgitation; RV systolic pressure of 51, suggestive of [id number] pulmonary hypertension. ALLERGIES: THE PATIENT IS ALLERGIC TO NAPROSYN AND CIPROFLOXACIN. SOCIAL HISTORY: Denies smoking. Denies drinking. HOME MEDICATIONS: The patient home medications included Warfarin 3 mg p.o. daily, simvastatin 20 mg daily, magnesium oxide 400 mg b.i.d., furosemide 80 mg p.o. daily, Pepcid 20 mg b.i.d., Benadryl 2 tables at bedtime, Lanoxin 0.25 p.o. daily. REVIEW OF SYSTEMS: All other systems reviewed. Positive mentioned in the history, others were negative. PHYSICAL EXAMINATION: VITAL SIGNS: Blood pressure 122/75, respirations 20, pulse 86, temperature 97.6. HEENT: Head is normocephalic. Eyes: Pupils normal. Conjunctivae normal. Nose and throat normal. NECK: JVP low. Carotids are equal. THORAX: AP diameter normal. LUNGS: Bilateral basilar rales. CARDIOVASCULAR: S1 and S2, Pansystolic murmur, grade 3/6. No rub. ABDOMEN: Soft, hepatomegaly, ascites. Bowel sound are normal. EXTREMITIES: No clubbing. No cyanosis or edema present. LABORATORY DATA: WBC 4.1, hemoglobin 14.0, hematocrit 44.5, platelets 146. Sodium 142, potassium 4.7, BUN 16, creatinine 0.8. AST and ALT normal, alkaline phosphatase 154. NT-proB natriuretic peptide 5270. Total protein 7.9, albumin 3.9. Chest x-ray; cardiomegaly. EKG showed pacemaker rhythm. DIAGNOSES: Congestive heart failure, [id number] left ventricular systolic failure, coronary artery disease, history of multiple stents and angioplasties and coronary artery bypass surgery, status post mitral valve repair, status post automatic implantable cardioverter defibrillator insertion, chronic atrial fibrillation, ascites, cryptogenic cirrhosis of liver. The patient already started Dobutrex drip, warfarin 3 mg p.o. daily. Today, prothrombin time is 18.5 with INR 1.71. Lasix 80 mg IV daily, digoxin 0.25 p.o. daily, Solu-Medrol 125 mg stat dose was given. We will add Aldactone 25 mg b.i.d. to therapy. We will follow PT/INR. Digoxin level 1.3. We will follow with you and monitor with you. Tonia Roy MD
[2016-11-18] MEDS: Albuterol-Ipratrop 3 mg / 0.5 (3 ml) UD IH PRN (15:20)
--- NOTE | 2016-11-18 19:11 | HP ---
HISTORY OF PRESENT ILLNESS: The patient is a 71-year-old female admitted through the emergency department on 11/17/2016 with shortness of breath. The patient has a history of coronary artery disease, status post CABG, implanted pacemaker and COPD with recurrent admissions for CHF as well as intractable ascites for which she has undergone recurrent paracentesis by Dr. Yaw Leonard. The patient also has a history of type 2 diabetes mellitus and COPD. MEDICATIONS: Her medications include digoxin 0.25 mg daily, Lasix 80 mg daily, Pepcid 20 mg daily and Coumadin 4 mg daily. ALLERGIES: SHE HAS ALLERGIES TO ADHESIVE TAPE, NAPROSYN AND CIPROFLOXACIN. REVIEW OF SYSTEMS: The patient denies any chest pain. She complains of dyspnea on exertion and shortness of breath, nonproductive cough and mild swelling of the legs. No nausea. No vomiting. No diaphoresis. No rash. No fever. No chills. SOCIAL HISTORY: The patient has a history of tobacco use in the remote past. There is no history of alcohol or drug use. She lives with her grandchildren and is depended with IADLs and needs assistance with some ADLs. PHYSICAL EXAMINATION: GENERAL: The patient is a well-developed female, slightly cachectic, in no acute distress. VITAL SIGNS: Blood pressure 122/75, pulse 76, temperature 97.7 and respiratory rate 14. HEENT: Head is normocephalic and atraumatic. Pupils equal, round and reactive to light. Extraocular movements intact. There is decreased hearing bilaterally. NECK: Supple. LUNGS: Show few scattered crepitations and bibasilar rales. HEART: Regular rate and rhythm with a grade II/ systolic murmur. There is an implanted cardiac defibrillator device in the left chest wall. ABDOMEN: Soft and slightly distended. Bowel sounds are normoactive. EXTREMITIES: Trace bipedal edema. There is mild cyanosis. No clubbing. NEUROLOGIC: The patient is awake and oriented x3 without focal sensory or motor deficits. SKIN: Warm and dry. LABORATORY DATA: WBC is 4.1, hemoglobin 14.0 and hematocrit 44.5. Sodium 142, potassium 4.7, chloride 102, CO2 21, BUN 16, creatinine 0.8 and glucose 122. BNP is elevated at 5270. Troponin is 0.02. IMPRESSION: 1. Ischemic cardiomyopathy with recurrent congestive heart failure. 2. Chronic obstructive pulmonary disease. 3. Intractable ascites secondary to congestive heart failure. 4. Type 2 diabetes mellitus. PLAN: The patient is admitted to telemetry unit. We will start IV low-dose dobutamine as well as Lasix and low-flow oxygen. Obtain cardiology consult from Dr. Roy/Dr. Quinteros and consultation with Dr. Yaw Leonard for possible abdominal paracentesis. Garcia Valdez JD/
[2016-11-19 07:32] LABS: INR 2.03 (0.93-1.08)
[2016-11-19 07:42] LABS: ALKALINE PHOSPHATASE 110 U/L (38-126); ALT/SGPT 27 U/L (7-56); AST/SGOT 20 U/L (14-36); BILIRUBIN,TOTAL 0.6 mg/dL (0.2-1.3); BLOOD UREA NITROGEN 28 mg/dL (7-21); CALCIUM 8.4 mg/dL (8.4-10.5); CARBON DIOXIDE 30 mmol/L (21-33); CHLORIDE 100 mmol/L (95-110); GFR AFRICAN-AMERICAN > 60; GLUCOSE,RANDOM 153 mg/dL (70-110); POTASSIUM 4.9 mmol/L (3.6-5.0); SODIUM 137 mmol/L (132-148); TOTAL PROTEIN 6.7 g/dL (5.8-8.3)
[2016-11-19] MEDS: Insulin Reg-MEDIUM-Coverage SC SCH ×4 (08:42→21:30)
--- NOTE | 2016-11-19 09:32 | CP.PCM.PN ---
Subjective - Date & Time of Evaluation Date of Evaluation: 11/19/16 Time of Evaluation: 09:20 - Subjective Subjective: resting comfortably, NAD, no chest pain, no SOB Objective - Vital Signs/Intake and Output Vital Signs (last 24 hours): Temp Pulse Resp BP Pulse Ox 97.8 F 87 20 120/81 96 11/19/16 06:00 11/19/16 06:00 11/19/16 06:00 11/19/16 06:00 11/19/16 06:00 Intake and Output: 11/19/16 11/19/16 06:59 18:59 Intake Total 600 Balance 600 - Medications Medications: Current Medications Acetaminophen (Tylenol 325mg Tab) 650 mg PO Q4H PRN PRN Reason: Fever >100.5 F Digoxin (Lanoxin) 0.25 mg PO 1400 COUNTS INCLUDE 234 BEDS AT THE [facility] Last Admin: 11/18/16 14:29 Dose: 0.25 mg Diphenhydramine HCl (Benadryl) 25 mg PO HS PRN PRN Reason: Insomnia Famotidine (Pepcid) 20 mg PO 1000,2200 COUNTS INCLUDE 234 BEDS AT THE [facility] Last Admin: 11/18/16 21:52 Dose: 20 mg Furosemide (Lasix) 80 mg IVP DAILY COUNTS INCLUDE 234 BEDS AT THE [facility] Last Admin: 11/18/16 11:26 Dose: 80 mg Dobutamine HCl/Dextrose (Dobutamine/Dextrose 5% 500mg/250ml) 500 mg in 250 mls @ 4.991 mls/hr IV .Q24H PRN; Protocol; 2.5 MCG/KG/MIN PRN Reason: TITRATE PER PROTOCOL Last Admin: 11/18/16 11:27 Dose: 4.991 mls/hr Insulin Human Regular (Humulin R Med) 0 units SC ACHS COUNTS INCLUDE 234 BEDS AT THE [facility] PRN Reason: Protocol Last Admin: 11/19/16 08:42 Dose: 1 units Ondansetron HCl (Zofran Inj) 4 mg IVP Q4H PRN PRN Reason: Nausea/Vomiting Spironolactone (Aldactone) 25 mg PO BID COUNTS INCLUDE 234 BEDS AT THE [facility] Last Admin: 11/18/16 18:12 Dose: 25 mg Warfarin Sodium (Coumadin) 3 mg PO 1800 FARIHA PRN Reason: Protocol Last Admin: 11/18/16 18:12 Dose: 3 mg - Labs Labs: 11/19/16 07:00 PT 21.9 Seconds (9.9-11.8) H 10/14/17 07:00 INR 2.03 (0.93-1.08) H 11/19/16 07:00 APTT 35.0 Seconds (23.7-30.8) H 11/17/16 14:45 - Respiratory Exam Respiratory Exam: Clear to Ausculation Bilateral, NORMAL BREATHING PATTERN - Cardiovascular Exam Cardiovascular Exam: REGULAR RHYTHM - GI/Abdominal Exam GI & Abdominal Exam: Soft - Neurological Exam Neurological Exam: Awake - Skin Skin Exam: Warm Assessment and Plan (1) CHF (congestive heart failure) Status: Chronic (2) COPD (chronic obstructive pulmonary disease) Status: Chronic (3) Type II diabetes mellitus Status: Chronic (4) Ascites Status: Resolved - Assessment and Plan (Free Text) Plan: continue IV dobutamine, cardio follow-up, Lasix IV, physical therapy and social work for discharge planning
[2016-11-19] MEDS: Digoxin 250 mcg (0.25 mg) Tab PO SCH (14:29)
--- NOTE | 2016-11-19 16:57 | PN ---
DATE: 11/19/2016 REASON FOR CONSULTATION AND FOLLOWUP: Coronary artery disease, congestive heart failure, ascites, cardiomegaly, cardiomyopathy, atrial fibrillation. SUBJECTIVE: The patient denies any chest pain, shortness of breath, or any palpitation, complained of mild shortness of breath. REVIEW OF SYSTEMS: As per HPI. PHYSICAL EXAMINATION GENERAL: Sitting at the bedside coughing and mild wheezing. VITAL SIGNS: Temperature afebrile, heart rate 87, and blood pressure 120/81. HEENT: PERRLA, intact. NECK: Supple. No carotid bruit. No thyromegaly. CHEST: Clear to auscultation. Scattered rhonchi noted. ABDOMEN: Distended. EXTREMITIES: Clubbing and cyanosis negative. LABORATORY DATA: Blood workup as follows: WBC 4.8, hemoglobin 14, hematocrit 44.5 and platelet count 146. Chemistry shows sodium 139, potassium 4.9, chloride 100, carbon dioxide 30, anion gap was closing 20 and creatinine 0.9. IMPRESSION: Acute decompensated congestive heart failure, cardiomyopathy ischemic, percutaneous transluminal coronary angioplasties, several stents, chronic atrial fibrillation on anticoagulation. INR 2.03, therapeutic, atrial fibrillation. RECOMMENDATIONS: Continue spironolactone, continue Coumadin, continue Dobutrex, continue digoxin, continue Lasix. We will follow with you. Thank you Dr. Valdez for providing the opportunity in taking care of the patient Goodman Umaña. Tonia Quinteros MD
[2016-11-20 07:02] LABS: INR 2.19 (0.93-1.08)
[2016-11-20 07:16] LABS: ALB/GLOB RATIO 0.9 (1.1-1.8); ALKALINE PHOSPHATASE 120 U/L (38-126); ALT/SGPT 23 U/L (7-56); AST/SGOT 21 U/L (14-36); BILIRUBIN,TOTAL 0.5 mg/dL (0.2-1.3); BLOOD UREA NITROGEN 32 mg/dL (7-21); CALCIUM 8.3 mg/dL (8.4-10.5); CARBON DIOXIDE 33 mmol/L (21-33); CHLORIDE 98 mmol/L (98-107); GFR AFRICAN-AMERICAN > 60; GLUCOSE,RANDOM 128 mg/dL (70-110); MAGNESIUM 1.9 mg/dL (1.7-2.2); PHOSPHOROUS 2.7 mg/dL (2.5-4.5); POTASSIUM 4.7 mmol/L (3.6-5.0); SODIUM 139 mmol/L (132-148)
[2016-11-20] MEDS: Insulin Reg-MEDIUM-Coverage SC SCH ×4 (08:17→22:49)
--- NOTE | 2016-11-20 09:45 | CP.PCM.PN ---
Subjective - Date & Time of Evaluation Date of Evaluation: 11/20/16 Time of Evaluation: 09:00 - Subjective Subjective: resting comfortably, NAD, no chest pain, no SOB Objective - Vital Signs/Intake and Output Vital Signs (last 24 hours): Temp Pulse Resp BP Pulse Ox 97.7 F 82 19 118/94 H 100 11/20/16 05:22 11/20/16 05:22 11/20/16 05:22 11/20/16 05:22 11/20/16 05:22 Intake and Output: 11/20/16 11/20/16 06:59 18:59 Intake Total 540 Balance 540 - Medications Medications: Current Medications Acetaminophen (Tylenol 325mg Tab) 650 mg PO Q4H PRN PRN Reason: Fever >100.5 F Digoxin (Lanoxin) 0.25 mg PO 1400 [facility] Last Admin: 11/19/16 14:29 Dose: 0.25 mg Diphenhydramine HCl (Benadryl) 25 mg PO HS PRN PRN Reason: Insomnia Famotidine (Pepcid) 20 mg PO 1000,2200 [facility] Last Admin: 11/19/16 21:32 Dose: 20 mg Furosemide (Lasix) 80 mg IVP DAILY [facility] Last Admin: 11/19/16 10:20 Dose: 80 mg Dobutamine HCl/Dextrose (Dobutamine/Dextrose 5% 500mg/250ml) 500 mg in 250 mls @ 4.991 mls/hr IV .Q24H PRN; Protocol; 2.5 MCG/KG/MIN PRN Reason: TITRATE PER PROTOCOL Last Admin: 11/18/16 11:27 Dose: 4.991 mls/hr Insulin Human Regular (Humulin R Med) 0 units SC ACHS [facility] PRN Reason: Protocol Last Admin: 11/20/16 08:17 Dose: Not Given Ondansetron HCl (Zofran Inj) 4 mg IVP Q4H PRN PRN Reason: Nausea/Vomiting Spironolactone (Aldactone) 25 mg PO BID [facility] Last Admin: 11/19/16 17:57 Dose: 25 mg Warfarin Sodium (Coumadin) 3 mg PO 1800 [facility] PRN Reason: Protocol Last Admin: 11/19/16 17:57 Dose: 3 mg - Labs Labs: 11/20/16 06:20 PT 23.6 Seconds (9.9-11.8) H 11/20/16 06:20 INR 2.19 (0.93-1.08) H 11/20/16 06:20 APTT 35.0 Seconds (23.7-30.8) H 11/17/16 14:45 - Respiratory Exam Respiratory Exam: Clear to Ausculation Bilateral, NORMAL BREATHING PATTERN - Cardiovascular Exam Cardiovascular Exam: REGULAR RHYTHM - GI/Abdominal Exam GI & Abdominal Exam: Soft, Normal Bowel Sounds - Neurological Exam Neurological Exam: Alert - Skin Skin Exam: Dry, Warm Assessment and Plan (1) CHF (congestive heart failure) Status: Chronic (2) COPD (chronic obstructive pulmonary disease) Status: Chronic (3) Type II diabetes mellitus Status: Chronic (4) Ascites Status: Resolved - Assessment and Plan (Free Text) Plan: continue cardiology follow-up, IV dobutamine/Lasix, Physical therapy and social work for discharge planning
[2016-11-20] MEDS: Digoxin 250 mcg (0.25 mg) Tab PO SCH (13:52)
[2016-11-20] MEDS: DOBUTamine 500mg/250ml D5W 500 MG/250 ML BAG IV PRN (13:53)
--- NOTE | 2016-11-20 18:23 | PN ---
DATE: 11/20/2016 REASON FOR CONSULT: Followup of coronary artery disease, congestive heart failure, cardiomyopathy and atrial fibrillation. SUBJECTIVE: Denies any chest pain or shortness of breath. Complaining of distention of abdomen and mild short of breath. PHYSICAL EXAMINATION: VITAL SIGNS: Temperature afebrile, heart rate 86 and blood pressure 102/69. HEENT: PERRLA, intact. NECK: Supple. No carotid bruits or thyromegaly. CHEST: Clear to auscultation. HEART: S1 and S2 regular. ABDOMEN: Soft. EXTREMITIES: Clubbing and cyanosis negative. LABORATORY DATA: Blood workup as follows: WBC 4.9, hemoglobin 14, hematocrit 44.5 and platelet count 146. Chemistry shows sodium 137, potassium 4.0, chloride 90, carbon dioxide 33, anion gap of 13, BUN 32 and creatinine 0.8. IMPRESSION: Decompensated congestive heart failure, acute on chronic systolic dysfunction, ischemic cardiomyopathy, status post percutaneous transluminal coronary angioplasty, status post coronary artery bypass graft, status post automatic implantable cardioverter-defibrillator, diabetes, hypertension, hyperlipidemia, recurrent hypoglycemia, atrial fibrillation, on anticoagulation, INR 2.19 and large ascites, may require another abdominal paracentesis. RECOMMENDATIONS: Continue Dobutrex. Continue Lasix. . We will follow with you. Thank you Dr. Valdez for providing us the opportunity in taking care of the patient, Chasidy Alicia. Tonia Quinteros MD
[2016-11-21 06:49] LABS: BASO # 0.01 K/mm3 (0.0-2.0); BASO % 0.2 % (0.0-3.0); EOS # 0.1 (0.0-0.7); GRAN # 3.73 (1.4-6.5); GRAN % 77.1 % (50.0-68.0); HEMATOCRIT 40.2 % (36.0-48.0); LYMPH # 0.7 (1.2-3.4); LYMPH % 14.7 % (22.0-35.0); MEAN CELL VOLUME 85.9 fl (80.0-105.0); MEAN CORPUSCULAR HEMOGLOBIN 26.3 pg (25.0-35.0); MEAN CORPUSCULAR HGB CONC 30.6 g/dl (31.0-37.0); MEAN PLATELET VOLUME 9.9 fl (7.0-11.0); MONO # 0.3 (0.1-0.6); RED CELL DISTRIBUTION WIDTH 16.9 % (11.5-14.5); WHITE BLOOD COUNT 4.8 10^3/ul (4.5-11.0)
[2016-11-21 06:57] LABS: INR 1.9 (0.93-1.08)
[2016-11-21 07:16] LABS: ALKALINE PHOSPHATASE 119 U/L (38-126); ALT/SGPT 21 U/L (7-56); AST/SGOT 22 U/L (14-36); BILIRUBIN,TOTAL 0.7 mg/dL (0.2-1.3); BLOOD UREA NITROGEN 28 mg/dL (7-21); CALCIUM 8.4 mg/dL (8.4-10.5); CARBON DIOXIDE 31 mmol/L (21-33); CHLORIDE 98 mmol/L (98-107); GFR AFRICAN-AMERICAN > 60; GLUCOSE,RANDOM 185 mg/dL (70-110); POTASSIUM 4.7 mmol/L (3.6-5.0); SODIUM 137 mmol/L (132-148); TOTAL PROTEIN 7.2 g/dL (5.8-8.3)
[2016-11-21] MEDS: Insulin Reg-MEDIUM-Coverage SC SCH ×4 (08:00→22:16)
[2016-11-21] MEDS: Digoxin 250 mcg (0.25 mg) Tab PO SCH (13:00)
--- NOTE | 2016-11-21 15:24 | CP.PCM.PN ---
Subjective - Date & Time of Evaluation Date of Evaluation: 11/21/16 Time of Evaluation: 09:00 - Subjective Subjective: c/o abdominal pain, denies chest pain, no SOB, no N/V Objective - Vital Signs/Intake and Output Vital Signs (last 24 hours): Temp Pulse Resp BP Pulse Ox 97.6 F 82 18 122/69 100 11/21/16 12:00 11/21/16 14:00 11/21/16 12:00 11/21/16 12:00 11/21/16 06:00 Intake and Output: 11/21/16 11/21/16 06:59 18:59 Intake Total 540 480 Output Total 650 500 Balance -110 -20 - Medications Medications: Current Medications Acetaminophen (Tylenol 325mg Tab) 650 mg PO Q4H PRN PRN Reason: Fever >100.5 F Digoxin (Lanoxin) 0.25 mg PO 1400 [facility] Last Admin: 11/21/16 13:00 Dose: 0.25 mg Diphenhydramine HCl (Benadryl) 25 mg PO HS PRN PRN Reason: Insomnia Famotidine (Pepcid) 20 mg PO 1000,2200 [facility] Last Admin: 11/21/16 10:36 Dose: 20 mg Furosemide (Lasix) 80 mg IVP DAILY [facility] Last Admin: 11/21/16 10:36 Dose: 80 mg Dobutamine HCl/Dextrose (Dobutamine/Dextrose 5% 500mg/250ml) 500 mg in 250 mls @ 4.991 mls/hr IV .Q24H PRN; Protocol; 2.5 MCG/KG/MIN PRN Reason: TITRATE PER PROTOCOL Last Admin: 11/20/16 13:53 Dose: 4.991 mls/hr Insulin Human Regular (Humulin R Med) 0 units SC ACHS [facility] PRN Reason: Protocol Last Admin: 11/21/16 12:45 Dose: 1 units Ondansetron HCl (Zofran Inj) 4 mg IVP Q4H PRN PRN Reason: Nausea/Vomiting Spironolactone (Aldactone) 25 mg PO BID [facility] Last Admin: 11/21/16 10:36 Dose: 25 mg Warfarin Sodium (Coumadin) 3 mg PO 1800 [facility] PRN Reason: Protocol Warfarin Sodium (Coumadin) 4 mg PO ONCE ONE PRN Reason: Protocol Stop: 11/21/16 18:01 - Labs Labs: 11/21/16 06:41 11/21/16 06:41 PT 20.5 Seconds (9.9-11.8) H 11/21/16 06:41 INR 1.90 (0.93-1.08) H 11/21/16 06:41 APTT 35.0 Seconds (23.7-30.8) H 11/17/16 14:45 - Respiratory Exam Respiratory Exam: Rales - Cardiovascular Exam Cardiovascular Exam: REGULAR RHYTHM, Murmur - GI/Abdominal Exam GI & Abdominal Exam: Distended, Firm, Normal Bowel Sounds - Extremities Exam Extremities Exam: Pedal Edema - Neurological Exam Neurological Exam: Alert, Awake - Skin Skin Exam: Dry, Warm Assessment and Plan (1) CHF (congestive heart failure) Status: Chronic (2) COPD (chronic obstructive pulmonary disease) Status: Chronic (3) Type II diabetes mellitus Status: Chronic (4) Ascites Status: Chronic - Assessment and Plan (Free Text) Plan: continue IV dobutamine/Lasic, cardio follow-up, possible paracentesis Dr. Leonard , physical therapy and social work for discharge planning
--- NOTE | 2016-11-21 18:46 | US ---
PROCEDURE: Ultrasound guided paracentesis. HISTORY: Cardiogenic cirrhosis. Recurrent ascites with abdominal distention and shortness of breath. Needs paracentesis. PHYSICIAN(S): Yaw Leonard MD. TECHNIQUE: The relative risks and indications for the procedure were explained to the patient and informed written consent obtained. Sonography of the abdomen was performed in a supine position. This revealed a small to moderate amount of non-loculated ascites, greatest in the left mid abdomen. A puncture site was selected and the area was prepped and draped in the usual sterile fashion. 1% Xylocaine was used to anesthetize the skin and soft tissues. A 7 Chinese paracentesis catheter was trocared into the left mid abdomenand 3200 cc of araya fluid aspirated. No labs were sent. IMPRESSION: Ultrasound-guided paracentesis in the left mid abdomen. 3200 cc of fluid were aspirated.
[2016-11-22 06:20] VITALS: O2SAT 96
[2016-11-22 06:39] LABS: EOS % 0.9 % (1.5-5.0); GRAN # 3.61 (1.4-6.5); GRAN % 77.1 % (50.0-68.0); HEMATOCRIT 41.7 % (36.0-48.0); LYMPH # 0.7 (1.2-3.4); LYMPH % 15.6 % (22.0-35.0); MEAN CELL VOLUME 86.3 fl (80.0-105.0); MEAN CORPUSCULAR HEMOGLOBIN 26.7 pg (25.0-35.0); MEAN CORPUSCULAR HGB CONC 30.9 g/dl (31.0-37.0); MEAN PLATELET VOLUME 10.4 fl (7.0-11.0); MONO # 0.3 (0.1-0.6); MONO % 6.4 % (1.0-6.0); RED CELL DISTRIBUTION WIDTH 16.6 % (11.5-14.5); WHITE BLOOD COUNT 4.7 10^3/ul (4.5-11.0)
[2016-11-22 06:45] LABS: INR 1.9 (0.93-1.08)
[2016-11-22 07:40] LABS: ALKALINE PHOSPHATASE 125 U/L (38-126); ALT/SGPT 28 U/L (7-56); AST/SGOT 19 U/L (14-36); BILIRUBIN,TOTAL 0.6 mg/dL (0.2-1.3); BLOOD UREA NITROGEN 27 mg/dL (7-21); CALCIUM 8.6 mg/dL (8.4-10.5); CARBON DIOXIDE 33 mmol/L (21-33); CHLORIDE 95 mmol/L (98-107); GFR AFRICAN-AMERICAN > 60; GLUCOSE,RANDOM 173 mg/dL (70-110); MAGNESIUM 1.8 mg/dL (1.7-2.2); PHOSPHOROUS 3.3 mg/dL (2.5-4.5); POTASSIUM 4.9 mmol/L (3.6-5.0); SODIUM 135 mmol/L (132-148); TOTAL PROTEIN 6.7 g/dL (5.8-8.3)
[2016-11-22] MEDS: Insulin Reg-MEDIUM-Coverage SC SCH ×3 (08:18→16:30)
--- NOTE | 2016-11-22 09:09 | PN ---
DATE: 11/21/2016 REASON FOR CONSULTATION AND FOLLOWUP: Coronary artery disease, congestive heart failure, cardiomyopathy, and atrial fibrillation. SUBJECTIVE: The patient denies chest pain or shortness of breath. Complaining of abdominal distention and mild short of breath. OBJECTIVE: GENERAL: Lying flat in the bed, not in apparent distress. VITAL SIGNS: As follows: Temperature afebrile, heart rate 77, and blood pressure 122/69. HEENT: PERRLA. Extraocular muscles are intact. NECK: Supple. No carotid bruits. No thyromegaly. CHEST: Clear to auscultation. HEART: S1 and S2 regular. ABDOMEN: Soft. EXTREMITIES: Clubbing and cyanosis negative. LABORATORY DATA: Blood workup as follows: WBC 4.8, hemoglobin 12.3, hematocrit 40.2, platelet count 157. Chemistry shows sodium of 137, potassium 4.6, chloride 98, carbon dioxide 31, anion gap of 13, BUN 28, and creatinine 0.7. Total protein 7.2, albumin 3.6, and albumin-globulin ratio 1. IMPRESSION: Decompensated congestive heart failure, acute on chronic systolic dysfunction, ischemic cardiomyopathy, status post percutaneous transluminal angioplasty, status post coronary artery bypass surgery, status post automatic implantable cardioverter-defibrillator, cardioverted defibrillator, hypertension, hyperlipidemia, recurrent hypoglycemia, and atrial fibrillation on anticoagulation, INR 2.19, and large ascites, may require abdominal paracentesis. RECOMMENDATIONS: The patient may require abdominal paracentesis, continue Dobutrex, continue IV Lasix, moderate electrolytes, and supplement electrolytes as needed. Thank you Dr. Valdez for providing me the opportunity in taking care of the patient Chasidy Alicia. We will follow with you. Tonia Quinteros MD cc: Dr. Valdez
--- NOTE | 2016-11-22 12:56 | CP.PCM.PN ---
Subjective - Date & Time of Evaluation Date of Evaluation: 11/22/16 Time of Evaluation: 09:00 - Subjective Subjective: abdominal pain improved s/p paracentesis, no chest pain, no SOB Objective - Vital Signs/Intake and Output Vital Signs (last 24 hours): Temp Pulse Resp BP Pulse Ox 97.8 F 78 20 122/68 96 11/22/16 06:00 11/22/16 06:00 11/22/16 06:00 11/22/16 09:05 11/22/16 06:00 Intake and Output: 11/22/16 11/22/16 06:59 18:59 Intake Total 1080 Output Total 775 Balance 305 - Medications Medications: Current Medications Acetaminophen (Tylenol 325mg Tab) 650 mg PO Q4H PRN PRN Reason: Fever >100.5 F Digoxin (Lanoxin) 0.25 mg PO 1400 [facility] Last Admin: 11/21/16 13:00 Dose: 0.25 mg Diphenhydramine HCl (Benadryl) 25 mg PO HS PRN PRN Reason: Insomnia Famotidine (Pepcid) 20 mg PO 1000,2200 [facility] Last Admin: 11/22/16 09:03 Dose: 20 mg Furosemide (Lasix) 80 mg IVP DAILY [facility] Last Admin: 11/22/16 09:05 Dose: 80 mg Insulin Human Regular (Humulin R Med) 0 units SC ACHS [facility] PRN Reason: Protocol Last Admin: 11/22/16 08:18 Dose: 1 units Ondansetron HCl (Zofran Inj) 4 mg IVP Q4H PRN PRN Reason: Nausea/Vomiting Warfarin Sodium (Coumadin) 3 mg PO 1800 [facility] PRN Reason: Protocol Warfarin Sodium (Coumadin) 4 mg PO 1800 [facility] PRN Reason: Protocol Stop: 11/22/16 18:01 - Labs Labs: 11/22/16 06:28 11/22/16 07:30 PT 20.5 Seconds (9.9-11.8) H 11/22/16 06:28 INR 1.90 (0.93-1.08) H 11/22/16 06:28 APTT 35.0 Seconds (23.7-30.8) H 11/17/16 14:45 - Respiratory Exam Respiratory Exam: Clear to Ausculation Bilateral, NORMAL BREATHING PATTERN - Cardiovascular Exam Cardiovascular Exam: REGULAR RHYTHM, Murmur - GI/Abdominal Exam GI & Abdominal Exam: Soft, Normal Bowel Sounds - Extremities Exam Extremities Exam: Normal Inspection - Neurological Exam Neurological Exam: Alert, Awake - Skin Skin Exam: Dry, Warm Assessment and Plan (1) CHF (congestive heart failure) Status: Chronic (2) COPD (chronic obstructive pulmonary disease) Status: Chronic (3) Type II diabetes mellitus Status: Chronic (4) Ascites Status: Chronic - Assessment and Plan (Free Text) Plan: discontinue dobutamine, discontinue aldactone (pt has developed hyperkalemia in past with this med), continue physical therapy, social work for discharge planning, TCU eval
[2016-11-22 12:57] VITALS: BP 116/59; PULSE 83; RESP 16; TEMP 97.3
[2016-11-22] MEDS: Digoxin 250 mcg (0.25 mg) Tab PO SCH (13:29)
[2016-11-22 13:32] VITALS: PULSE 82
--- NOTE | 2016-11-22 15:32 | PN ---
DATE: 11/22/2016 REASON FOR CONSULTATION AND FOLLOWUP: Coronary artery disease, congestive heart failure, cardiomyopathy, atrial fibrillation, acute on chronic secondary to systolic dysfunction. SUBJECTIVE: Denies any chest pain, feels better, less short of breath, but feels belly distended. PHYSICAL EXAMINATION: GENERAL: Not in apparent distress. VITAL SIGNS: As follows: Temperature afebrile, heart rate 70, blood pressure . HEENT: PERRLA. Extraocular muscles intact. NECK: Supple. No carotid bruit. No thyromegaly. CHEST: Clear to auscultation. HEART: S1 and S2 regular. ABDOMEN: Soft. EXTREMITIES: Clubbing and cyanosis negative. LABORATORY DATA: Blood workup as follows: WBC 4.7, hemoglobin 12.9, hematocrit 41.7 and platelet count 187. Chemistry shows sodium 135, potassium 4.9, chloride 95, carbon dioxide 23, anion gap of 12, BUN 27 and creatinine 0.8. INR 1.9. IMPRESSION: Subtherapeutic INR, acute decompensated congestive heart failure, acute on chronic systolic dysfunction, atrial fibrillation, cardiomyopathy ischemic, history of coronary artery bypass surgery status post automatic implantable cardioverter-defibrillator, cardiac cachexia, ascites. RECOMMENDATIONS: We will give 4 mg of Coumadin two today and 3 mg from tomorrow to increase the PT/INR to be therapeutic. Followup PT/INR in the morning. We will follow with you. Thank you Dr. Valdez for providing us the opportunity in taking care of the patient, Goodman Umaña. Tonia Quinteros MD
--- NOTE | 2016-11-23 22:39 | DS ---
HOSPITAL COURSE: The patient is a 71-year-old female admitted through the emergency department on 11/18/2016 with shortness of breath. The patient was started on IV Lasix and IV dobutamine, seen in consultation by Cardiology, Dr. Roy/Dr. Quinteros and had an uneventful hospital course. She also noted to have increasing ascites and abdominal discomfort and she was seen in consultation by Dr. Yaw Leonard who performed an abdominal paracentesis on 11/21/2016 without complications. She is now transferred to the Transitional Care Unit for further physical therapy and discharge planning. Vital signs and physical examination and impressions are as per progress note dictated on 11/22/2016. The patient was discharged to the Transitional Care Unit on the following medications; Digoxin 0.25 mg daily, Lasix 80 mg daily, Pepcid 20 mg daily, Coumadin 4 mg daily and Benadryl 25 at bedtime. IMPRESSION: 1. Ischemic cardiomyopathy with recurrent congestive heart failure. 2. Chronic obstructive pulmonary disease. 3. Intractable ascites. 4. Type 2 diabetes mellitus. PLAN: The patient will be maintained on heart-healthy diet. She is transferred to the Transitional Care Unit for further physical therapy. Garcia Valdez JD/
== END 2016-11-22 17:25 | DRG 292 ==
LOC: ED 13:48 → ERH 16:13 → 2RNO 18:49 → OBSVTOIN 11-18 12:35
PROVIDERS: ADMIT Internal Medicine; ATTEND Internal Medicine
PROC: 3E0F7GC Introduction of Other Therapeutic Substance into Respiratory Tract, Via Natural or Artificial Opening (ICD-10-PCS; 2016-11-17)
PROC: 0W9G3ZZ Drainage of Peritoneal Cavity, Percutaneous Approach (ICD-10-PCS; principal; 2016-11-21 12:30)
DX: I11.0 Hypertensive heart disease with heart failure (principal); R18.8 Other ascites; I50.23 Acute on chronic systolic (congestive) heart failure; K74.69 Other cirrhosis of liver; I25.5 Ischemic cardiomyopathy; J44.9 Chronic obstructive pulmonary disease, unspecified; E11.9 Type 2 diabetes mellitus without complications; I25.10 Atherosclerotic heart disease of native coronary artery without angina pectoris; I48.2 Chronic atrial fibrillation; I73.00 Raynaud's syndrome without gangrene; H91.90 Unspecified hearing loss, unspecified ear; E78.5 Hyperlipidemia, unspecified; I25.2 Old myocardial infarction; Z79.01 Long term (current) use of anticoagulants; Z86.73 Personal history of transient ischemic attack (TIA), and cerebral infarction without residual deficits; Z95.1 Presence of aortocoronary bypass graft; Z95.810 Presence of automatic (implantable) cardiac defibrillator; Z95.5 Presence of coronary angioplasty implant and graft; Z90.49 Acquired absence of other specified parts of digestive tract; Z87.891 Personal history of nicotine dependence

== ENCOUNTER 2016-11-22 16:56 | Inpatient (IN) | payer OTHER ==
[2016-11-22 18:01] VITALS: BMI 23.8
[2016-11-22] MEDS: Insulin Reg-MEDIUM-Coverage SC SCH (22:51)
[2016-11-23] MEDS: Insulin Reg-MEDIUM-Coverage SC SCH ×4 (07:11→22:09)
--- NOTE | 2016-11-23 13:24 | HP ---
HISTORY OF PRESENT ILLNESS: The patient is a 71-year-old female transferred for subacute rehab from the medical surgical floor after being admitted on 11/18/2016 for congestive heart failure and exacerbation of COPD. The patient was started on IV Lasix as well as dobutamine. She was seen in consultation by cardiology Dr. Roy and Dr. Quinteros and had an uneventful hospital course. She was also seen for increasing abdominal ascites and underwent paracentesis on 11/21/[address] Yaw Leonard without complications. She is now transferred to transitional care unit for further physical therapy and social work for discharge planning. PAST MEDICAL HISTORY: Includes coronary artery disease, status post CABG with implanted pacemaker, COPD, type 2 diabetes mellitus. CURRENT MEDICATIONS: Include digoxin 0.25 mg daily, Lasix 80 mg daily, Pepcid 20 mg twice daily, Coumadin 3 mg daily, and Benadryl 25 mg at h.s. ALLERGIES: THE PATIENT HAS ALLERGIES TO ADHESIVE TAPE, NAPROSYN, AND CIPROFLOXACIN. REVIEW OF SYSTEMS: At the present time, the patient denies any chest pain. There is no shortness of breath. There is some dyspnea on exertion. She has a nonproductive cough. There is no edema, no nausea, no vomiting, no diaphoresis, no abdominal pain. SOCIAL HISTORY: The patient has a history of tobacco use in the remote past. There is no history of alcohol or drug use. She lives with her grandchildren and is dependent with IADLs and needs assistance with some ADLs. PHYSICAL EXAMINATION: GENERAL: The patient is a well-developed female, slightly cachectic, in no acute distress. VITAL SIGNS: Blood pressure 102/76, pulse 80, temperature 98.1, respiratory rate 15. HEENT: Head is normocephalic and atraumatic. Pupils equal, round and reactive to light. Extraocular movements are intact. There is decreased hearing bilaterally. NECK: Supple. LUNGS: Clear. HEART: Regular rate and rhythm with a grade II/ systolic murmur. There is an implanted cardiac defibrillator device in the left chest wall. ABDOMEN: Soft, nontender. Bowel sounds are normoactive. EXTREMITIES: Without cyanosis, clubbing or edema. NEUROLOGIC: The patient is awake and oriented x3 without focal sensory or motor deficits. SKIN: Warm and dry. IMPRESSION: 1. Ischemic cardiomyopathy with recurrent congestive heart failure. 2. Chronic obstructive pulmonary disease. 3. Type 2 diabetes mellitus. 4. Intractable ascites secondary to congestive heart failure, status post abdominal paracentesis. PLAN: The patient is admitted from transitional care unit for further physical therapy and social work for discharge planning. Continue cardiology followup with Dr. Roy/Dr. Quinteros. Garcia Valdez JD/
--- NOTE | 2016-11-23 13:36 | CON ---
DATE: 11/23/2016 LOCATION: The patient on 321, bed 1. REASON FOR CONSULTATION: Followup with coronary artery disease, decompressive congestive heart failure, acute on chronic LV systolic dysfunction, cardiomyopathy status post AICD insertion, and ascites. HISTORY OF PRESENT ILLNESS: A 71-year-old female known to have coronary artery disease status post CABG and mitral valve repair, status post AICD insertion admitted with shortness of breath and abdominal discomfort, on medical floor where she was found to have ascites and acute on chronic LV systolic congestive heart failure. The patient was treated medically for her paracentesis and she improved and now she is admitted to Transitional Care Unit for deconditioning and physical therapy. The patient lying flat in bed without chest pain, shortness of breath or palpitation. PAST MEDICAL HISTORY: Significant for longstanding history of coronary artery disease with inferior wall CA, at that time, TPA was given in 1989 with acute inferior wall CA and the patient then subsequently had multiple PTCA and later on had coronary artery bypass surgery along with mitral valve repair at [facility]. Following that she had also AICD insertion at [facility]. The patient known to have chronic atrial fibrillation on anticoagulation,history of diabetes, but was on oral hypoglycemic agent and continued to get multiple episodes of hypoglycemia, so oral hypoglycemic agents were discontinued. PAST SURGICAL HISTORY: The patient had incarcerated hernia, for which she had surgery. She had multiple abdominal paracentesis, coronary artery bypass surgery, mitral valve repair, AICD insertion. PREVIOUS CARDIAC WORKUP: The patient recent echo was done on 04/14/2015, which showed LV ejection fraction of 22-25%, [id number] mitral regurgitation status post mitral valve repair, [id number] mitral regurgitation, mitral valve area of 1.3 cm sq, severe tricuspid regurgitation, RV systolic pressure of 51 mmHg suggestive of [id number] pulmonary hypertension. ALLERGIES: THE PATIENT IS ALLERGIC TO NAPROSYN AND CIPROFLOXACIN. PERSONAL HISTORY: Denies smoking. Denies drinking. MEDICATIONS: The patient's medication at home, the patient was on warfarin 3 mg daily, simvastatin 20 mg daily, magnesium oxide 400 mg b.i.d., furosemide 80 mg daily, Benadryl two tablets p.o. at bedtime, digoxin 0.25 mg daily. REVIEW OF SYSTEMS: All the system reviewed positive mentioned in the history otherwise negative. PHYSICAL EXAMINATION: VITAL SIGNS: Blood pressure 102/76, respiration 20, pulse 80, temperature 98.1. HEENT: Head is normocephalic. Eyes: Pupils normal. Conjunctiva normal. Nose and throat normal. NECK: JVP low. Carotid equal. Thorax, AP diameter normal. The patient had an AICD. LUNGS: No significant rales. CARDIOVASCULAR: S1 and S2. Parasystolic murmur, grade 3/6. No rub. ABDOMEN: Soft. Bowel sounds normal. EXTREMITIES: No clubbing. No cyanosis. LABORATORY DATA: WBC 4.7, hemoglobin 12.9, hematocrit 41.7, and platelet 187. Sodium 135, potassium 4.9, BUN 27, creatinine 0.8, random sugar 193. Calcium, phosphorus, and magnesium normal. AST and ALT normal. Total protein 6.7, albumin 3.3. Prothrombin time 20.5, and INR 1.90, this was on 11/22/2016. Chest x-ray on 11/17/2016, mild cardiomegaly, AICD. EKG showed heart rate 80 per minute, ventricular pacemaker rhythm. DIAGNOSIS: Acute on chronic left ventricular systolic failure, cardiomyopathy, ischemic, chronic atrial fibrillation, coronary artery disease, history of multiple PTC and stents and coronary artery bypass graft, status post mitral valve repair, ascites, status post ACID insertion, cardiac cachexia. PLAN: The patient is now in Transitional Care Unit, due to get physical therapy. The patient also getting warfarin 3 mg p.o. daily, Digoxin 0.25 mg daily, furosemide 80 mg IV daily, Pepcid 20 mg p.o. b.i.d. Continue physical therapy. We will follow up with you. Tonia Roy MD
[2016-11-23] MEDS: Digoxin 250 mcg (0.25 mg) Tab PO SCH (14:12)
[2016-11-24] MEDS: Insulin Reg-MEDIUM-Coverage SC SCH ×4 (07:04→22:55)
--- NOTE | 2016-11-24 10:11 | CP.PCM.PN ---
Subjective - Date & Time of Evaluation Date of Evaluation: 11/24/16 Time of Evaluation: 10:00 - Subjective Subjective: NAD, denies chest pain, no SOB Objective - Vital Signs/Intake and Output Vital Signs (last 24 hours): Temp Pulse Resp BP Pulse Ox 98.4 F 80 15 111/71 94 L 11/23/16 17:38 11/23/16 17:38 11/23/16 17:38 11/24/16 06:03 11/23/16 17:38 - Medications Medications: Current Medications Acetaminophen (Tylenol 325mg Tab) 650 mg PO Q4H PRN; Protocol PRN Reason: Fever >100.4 F Digoxin (Lanoxin) 0.25 mg PO 1400 [facility] PRN Reason: Protocol Last Admin: 11/23/16 14:12 Dose: 0.25 mg Diphenhydramine HCl (Benadryl) 25 mg PO HS PRN; Protocol PRN Reason: Insomnia Last Admin: 11/23/16 22:05 Dose: 25 mg Famotidine (Pepcid) 20 mg PO 1000,2200 [facility] PRN Reason: Protocol Last Admin: 11/24/16 09:43 Dose: 20 mg Furosemide (Lasix) 80 mg IVP 0600 [facility] PRN Reason: Protocol Last Admin: 11/24/16 06:03 Dose: Not Given Insulin Human Regular (Humulin R Med) 0 units SC ACHS [facility] PRN Reason: Protocol Last Admin: 11/24/16 07:04 Dose: 5 units Ondansetron HCl (Zofran Inj) 4 mg IVP Q4H PRN; Protocol PRN Reason: Nausea/Vomiting Warfarin Sodium (Coumadin) 3 mg PO 1800 [facility] PRN Reason: Protocol Last Admin: 11/23/16 17:46 Dose: 3 mg - Respiratory Exam Respiratory Exam: Rales, NORMAL BREATHING PATTERN - Cardiovascular Exam Cardiovascular Exam: REGULAR RHYTHM - GI/Abdominal Exam GI & Abdominal Exam: Soft, Normal Bowel Sounds - Extremities Exam Extremities Exam: Normal Inspection - Neurological Exam Neurological Exam: Alert, Awake - Skin Skin Exam: Dry, Warm Assessment and Plan (1) CHF (congestive heart failure) Status: Chronic (2) Ascites Status: Chronic (3) Type II diabetes mellitus Status: Chronic (4) COPD (chronic obstructive pulmonary disease) Status: Chronic - Assessment and Plan (Free Text) Plan: continue cardiology follow-up, physical therapy, social work for discharge planning
[2016-11-24] MEDS: Digoxin 250 mcg (0.25 mg) Tab PO SCH (14:27)
--- NOTE | 2016-11-24 17:51 | PN ---
DATE: 11/24/2016 LOCATION: Room 321, bed 1. REASON FOR CONSULTATION: [id number] LV systolic congestive heart failure, coronary artery disease, atrial fibrillation, AICD insertion, and ascites. SUBJECTIVE: The patient lying comfortably in bed without chest pain, shortness of breath, or palpitation. PHYSICAL EXAMINATION: VITAL SIGNS: Blood pressure 95/76, respirations 20, pulse 81, temperature 97.3. HEENT: Head is normocephalic. Eyes, pupils normal, conjunctivae normal. Nose and throat normal. NECK: JVP low. Carotids equal. THORAX: AP diameter normal. LUNGS: Clear. CARDIOVASCULAR: S1 and S2. Pansystolic murmur grade 3/6. No rub. ABDOMEN: Ascites. PERIPHERIES: No clubbing. No cyanosis. LABORATORY DATA: Random sugar 263. Other labs were done on medical floor when patient was on medical floor and they were dictated in our notes from the medical floor. Patient's previous cardiac workup was dictated in our consult of 11/23/2016. DIAGNOSES: [id number] left ventricular systolic failure; cardiomyopathy, ischemic type; chronic atrial fibrillation; coronary artery disease, history of multiple percutaneous transluminal coronary angioplasty and stents, and coronary artery bypass surgery, status post mitral valve repair; ascites; status post automatic implantable cardioverter-defibrillator insertion; cardiac cachexia; deconditioning. RECOMMENDATIONS AND PLAN: Patient is getting physical therapy. Patient is on warfarin 3 mg p.o. daily, digoxin 0.25 daily, Lasix 80 mg p.o. daily, famotidine 20 mg b.i.d. We will continue present therapy and we will check PT/INR in the morning, and we will follow with you. Tonia Roy MD
[2016-11-25] MEDS: Insulin Reg-MEDIUM-Coverage SC SCH ×4 (06:51→21:52)
[2016-11-25 08:11] LABS: INR 2.05 (0.93-1.08)
--- NOTE | 2016-11-25 12:14 | PN ---
REASON FOR THE CONSULTATION: Decompensated congestive heart failure, acute on chronic systolic dysfunction, coronary artery disease, coronary artery bypass graft, status post AICD, chronic atrial fibrillation, continuity of care in Transitional Care Unit. SUBJECTIVE: The patient is sitting, having a double portion. Feels better today since she got double portion. Denies any chest pain. Denies shortness of breath. Denies any palpitation. PHYSICAL EXAMINATION: GENERAL: Not in any apparent distress, having depressed. VITAL SIGNS: Temperature afebrile, heart rate 81, blood pressure 117/73. HEENT: PERRLA. Extraocular muscles intact. NECK: Supple. No carotid bruit. No thyromegaly. CHEST: Clear to auscultation. HEART: S1 and S2 regular. ABDOMEN: Soft. EXTREMITIES: Clubbing and cyanosis negative. LABORATORY DATA: Blood workup as follows: INR is 2.05. IMPRESSION: Acute decompensated congestive heart failure secondary to systolic dysfunction; cardiomyopathy, ischemic; chronic atrial fibrillation; coronary artery disease; coronary artery bypass graft; status post multiple percutaneous transluminal coronary angioplasty pre and post coronary artery bypass graft; status post mitral valve repair; ascites; status post automatic implantable cardioverter-defibrillator; deconditioned body; cardiac cachexia. RECOMMENDATIONS: Continue anticoagulation. INR is therapeutic for AFib. Continue digoxin. Continue Coumadin, increase in 2 days, now the INR is therapeutic. Continue Lasix. Follow up PT/INR for tomorrow dosage. For now, continue 3 mg. Request for a PT/INR tomorrow. Thank you Dr. Valdez for providing us the opportunity in taking care of Ms. Alicia. Tonia Quinteros MD
--- NOTE | 2016-11-25 13:13 | CP.PCM.PN ---
Subjective - Date & Time of Evaluation Date of Evaluation: 11/25/16 Time of Evaluation: 06:55 - Subjective Subjective: resting comfortably, NAD, no cheat pain, no SOB Objective - Vital Signs/Intake and Output Vital Signs (last 24 hours): Temp Pulse Resp BP Pulse Ox 97.7 F 81 18 125/78 99 11/24/16 16:21 11/24/16 16:21 11/24/16 16:21 11/25/16 09:42 11/24/16 16:21 - Medications Medications: Current Medications Acetaminophen (Tylenol 325mg Tab) 650 mg PO Q4H PRN; Protocol PRN Reason: Fever >100.4 F Digoxin (Lanoxin) 0.25 mg PO 1400 [facility] PRN Reason: Protocol Last Admin: 11/24/16 14:27 Dose: 0.25 mg Diphenhydramine HCl (Benadryl) 25 mg PO HS PRN; Protocol PRN Reason: Insomnia Last Admin: 11/24/16 21:43 Dose: 25 mg Famotidine (Pepcid) 20 mg PO 1000,2200 [facility] PRN Reason: Protocol Last Admin: 11/25/16 09:42 Dose: 20 mg Furosemide (Lasix) 80 mg PO DAILY [facility] Last Admin: 11/25/16 09:42 Dose: 80 mg Insulin Human Regular (Humulin R Med) 0 units SC ACHS [facility] PRN Reason: Protocol Last Admin: 11/25/16 12:20 Dose: 1 units Ondansetron HCl (Zofran Inj) 4 mg IVP Q4H PRN; Protocol PRN Reason: Nausea/Vomiting Warfarin Sodium (Coumadin) 3 mg PO 1800 [facility] PRN Reason: Protocol Last Admin: 11/24/16 17:37 Dose: 3 mg - Labs Labs: PT 22.9 SECONDS (9.4-12.5) H 11/25/16 07:48 INR 2.05 (0.93-1.08) H 11/25/16 07:48 - Respiratory Exam Respiratory Exam: Rales, NORMAL BREATHING PATTERN - Cardiovascular Exam Cardiovascular Exam: REGULAR RHYTHM, Murmur - GI/Abdominal Exam GI & Abdominal Exam: Soft, Normal Bowel Sounds - Neurological Exam Neurological Exam: Alert, Awake - Skin Skin Exam: Dry, Warm Assessment and Plan (1) CHF (congestive heart failure) Status: Chronic (2) Ascites Status: Chronic (3) Type II diabetes mellitus Status: Chronic (4) COPD (chronic obstructive pulmonary disease) Status: Chronic - Assessment and Plan (Free Text) Plan: continue rehab, social work for discharge planning
[2016-11-25] MEDS: Digoxin 250 mcg (0.25 mg) Tab PO SCH (15:05)
[2016-11-26] MEDS: Insulin Reg-MEDIUM-Coverage SC SCH ×4 (07:21→22:06)
[2016-11-26 07:59] LABS: INR 2.2 (0.93-1.08)
--- NOTE | 2016-11-26 10:17 | CP.PCM.PN ---
Subjective - Date & Time of Evaluation Date of Evaluation: 11/26/16 Time of Evaluation: 09:45 - Subjective Subjective: resting comfortably, no chest pain, no SOB Objective - Vital Signs/Intake and Output Vital Signs (last 24 hours): Temp Pulse Resp BP Pulse Ox 97.7 F 81 18 127/76 99 11/24/16 16:21 11/24/16 16:21 11/24/16 16:21 11/26/16 09:48 11/24/16 16:21 - Medications Medications: Current Medications Acetaminophen (Tylenol 325mg Tab) 650 mg PO Q4H PRN; Protocol PRN Reason: Fever >100.4 F Digoxin (Lanoxin) 0.25 mg PO 1400 [facility] PRN Reason: Protocol Last Admin: 11/25/16 15:05 Dose: 0.25 mg Diphenhydramine HCl (Benadryl) 25 mg PO HS PRN; Protocol PRN Reason: Insomnia Last Admin: 11/24/16 21:43 Dose: 25 mg Famotidine (Pepcid) 20 mg PO 1000,2200 [facility] PRN Reason: Protocol Last Admin: 11/26/16 09:51 Dose: 20 mg Furosemide (Lasix) 80 mg PO DAILY [facility] Last Admin: 11/26/16 09:48 Dose: 80 mg Insulin Human Regular (Humulin R Med) 0 units SC ACHS [facility] PRN Reason: Protocol Last Admin: 11/26/16 07:21 Dose: Not Given Ondansetron HCl (Zofran Inj) 4 mg IVP Q4H PRN; Protocol PRN Reason: Nausea/Vomiting Warfarin Sodium (Coumadin) 3 mg PO 1800 [facility] PRN Reason: Protocol Last Admin: 11/25/16 17:18 Dose: 3 mg - Labs Labs: PT 24.6 SECONDS (9.4-12.5) H 11/26/16 07:30 INR 2.20 (0.93-1.08) H 11/26/16 07:30 - Respiratory Exam Respiratory Exam: Clear to Ausculation Bilateral, NORMAL BREATHING PATTERN - Cardiovascular Exam Cardiovascular Exam: REGULAR RHYTHM - GI/Abdominal Exam GI & Abdominal Exam: Soft, Normal Bowel Sounds - Extremities Exam Extremities Exam: Normal Inspection - Neurological Exam Neurological Exam: Alert, Awake - Skin Skin Exam: Dry, Warm Assessment and Plan (1) CHF (congestive heart failure) Status: Chronic (2) Ascites Status: Chronic (3) Type II diabetes mellitus Status: Chronic (4) COPD (chronic obstructive pulmonary disease) Status: Chronic - Assessment and Plan (Free Text) Plan: continue rehab, social work for discharge planning
[2016-11-26] MEDS: Digoxin 250 mcg (0.25 mg) Tab PO SCH (13:17)
--- NOTE | 2016-11-26 16:34 | PN ---
DATE: 11/26/2016 LOCATION: Room 321, bed 1. REASON FOR CONSULTATION: Decompensated congestive heart failure, acute on chronic LV systolic dysfunction, coronary artery disease, coronary artery bypass graft surgery status post AICD insertion, chronic atrial fibrillation, deconditioning. SUBJECTIVE: Patient lying comfortably in bed without chest pain, shortness of breath, or palpitation. PHYSICAL EXAMINATION VITAL SIGNS: Blood pressure 127/76, respiration 18, pulse 81, temperature 97.7. HEENT: Head is normocephalic. Eyes, pupils normal. Conjunctivae normal. NECK: JVP low. Carotids equal. THORAX: AP diameter normal. LUNGS: No significant rales. CARDIOVASCULAR: S1 and S2. Pansystolic murmur grade 3/6. ABDOMEN: Some ascites. PERIPHERIES: No clubbing. No cyanosis. LABORATORY DATA: Prothrombin time today is 24.6 with INR 2.20. Other labs were done on medical floor and they were mentioned in our notes done on the medical floor before. DIAGNOSES: Acute on chronic decompensated congestive heart failure secondary to systolic dysfunction; cardiomyopathy ischemic type; chronic atrial fibrillation; coronary artery disease; coronary artery bypass surgery; coronary artery angioplasty and stent insertion; status post automatic implantable cardioverter-defibrillator insertion; status post mitral valve repair; ascites, status post paracentesis; deconditioning; cardiac cachexia. PLAN: Patient's protime is therapeutic. We will continue warfarin 3 mg daily, insulin as ordered, digoxin 0.25 daily, furosemide 80 mg p.o. daily, Pepcid 20 mg p.o. b.i.d. We will follow. Tonia Roy MD
[2016-11-27] MEDS: Insulin Reg-MEDIUM-Coverage SC SCH ×4 (06:52→21:33)
[2016-11-27 07:08] LABS: INR 2.19 (0.93-1.08)
--- NOTE | 2016-11-27 08:54 | CP.PCM.PN ---
Subjective - Date & Time of Evaluation Date of Evaluation: 11/27/16 Time of Evaluation: 08:30 - Subjective Subjective: denies chest pain, no SOB, c/o mild abdominal discomfort, no nausea/vomiting, denies diarrhea, no melena/BRBPR, no dysuria Objective - Vital Signs/Intake and Output Vital Signs (last 24 hours): Temp Pulse Resp BP Pulse Ox 98.3 F 82 15 109/62 99 11/26/16 18:00 11/26/16 18:00 11/26/16 18:00 11/26/16 18:00 11/26/16 16:00 - Medications Medications: Current Medications Acetaminophen (Tylenol 325mg Tab) 650 mg PO Q4H PRN; Protocol PRN Reason: Fever >100.4 F Digoxin (Lanoxin) 0.25 mg PO 1400 [facility] PRN Reason: Protocol Last Admin: 11/26/16 13:17 Dose: 0.25 mg Diphenhydramine HCl (Benadryl) 25 mg PO HS PRN; Protocol PRN Reason: Insomnia Last Admin: 11/26/16 21:55 Dose: 25 mg Famotidine (Pepcid) 20 mg PO 1000,2200 [facility] PRN Reason: Protocol Last Admin: 11/26/16 21:55 Dose: 20 mg Furosemide (Lasix) 80 mg PO DAILY [facility] Last Admin: 11/26/16 09:48 Dose: 80 mg Insulin Human Regular (Humulin R Med) 0 units SC ACHS [facility] PRN Reason: Protocol Last Admin: 11/27/16 06:52 Dose: 3 units Ondansetron HCl (Zofran Inj) 4 mg IVP Q4H PRN; Protocol PRN Reason: Nausea/Vomiting Warfarin Sodium (Coumadin) 3 mg PO 1800 [facility] PRN Reason: Protocol Last Admin: 11/26/16 19:44 Dose: 3 mg - Labs Labs: PT 24.5 SECONDS (9.4-12.5) H 11/27/16 06:00 INR 2.19 (0.93-1.08) H 11/27/16 06:00 - Respiratory Exam Respiratory Exam: Clear to Ausculation Bilateral, NORMAL BREATHING PATTERN - Cardiovascular Exam Cardiovascular Exam: REGULAR RHYTHM, Murmur - GI/Abdominal Exam GI & Abdominal Exam: Soft, Normal Bowel Sounds - Extremities Exam Extremities Exam: Normal Inspection - Neurological Exam Neurological Exam: Alert, Awake - Skin Skin Exam: Dry, Warm Assessment and Plan (1) CHF (congestive heart failure) Status: Chronic (2) Ascites Status: Chronic (3) Type II diabetes mellitus Status: Chronic (4) COPD (chronic obstructive pulmonary disease) Status: Chronic - Assessment and Plan (Free Text) Plan: continue physical therapy, social work for discharge planning
[2016-11-27] MEDS: Digoxin 250 mcg (0.25 mg) Tab PO SCH (13:33)
--- NOTE | 2016-11-27 14:13 | PN ---
DATE: 11/27/2016 LOCATION: The patient is in room 321, bed 1. REASON FOR CONSULTATION AND FOLLOWUP: Decompensating congestive heart failure, [id number] left ventricular systolic dysfunction, coronary artery disease, coronary artery bypass graft surgery, status post automated implantable cardioverter-defibrillator insertion, chronic atrial fibrillation, and deconditioning. SUBJECTIVE: The patient is lying in bed. Denies any chest pain, shortness of breath, or palpitations. PHYSICAL EXAMINATION VITAL SIGNS: Blood pressure of 90/53, respirations of 15, pulse of 82, and temperature of 98.3. HEENT: Normocephalic. Eyes: Pupils are normal. Conjunctivae are normal. NECK: JVP is low. Carotids are equal. THORAX: AP diameter normal. LUNGS: Clear. CARDIOVASCULAR: S1 and S2. Pansystolic murmur grade III/. No rub. ABDOMEN: Ascites present. Bowel sounds are normal. EXTREMITIES: No clubbing. No cyanosis. LABORATORY DATA: Prothrombin time today is 24.5 with INR of 2.19. Other labs were done previously and they were mentioned in our notes from medical floor. DIAGNOSES: Acute on chronic decompensated congestive heart failure secondary to systolic dysfunction; cardiomyopathy ischemic type; chronic atrial fibrillation; coronary artery disease; coronary artery bypass surgery; coronary artery angioplasty and stent insertion; status post automatic implantable cardioverter-defibrillator insertion; status post mitral valve repair; ascites, status post paracentesis; deconditioning; cardiac cachexia. PLAN: The patient to continue physical therapy and PT/INR is therapeutic. We will continue warfarin 3 mg p.o. daily, digoxin 0.25 mg daily, furosemide 80 mg daily, and Pepcid 20 mg p.o. b.i.d. We will continue present therapy and we will continue to follow. Tonia Roy MD
[2016-11-28] MEDS: Insulin Reg-MEDIUM-Coverage SC SCH ×4 (06:56→22:29)
[2016-11-28 07:25] LABS: INR 2.08 (0.93-1.08)
--- NOTE | 2016-11-28 13:42 | PN ---
DATE: 11/28/2016 REASON FOR CONSULTATION AND FOLLOWUP: Acute decompensated congestive heart failure, acute on chronic systolic dysfunction, coronary artery disease, deconditioned body. SUBJECTIVE: The patient lying flat on the bed, not in apparent distress. OBJECTIVE: GENERAL: Not in apparent distress, had a double portion of the tray this morning. VITAL SIGNS: As follows: Temperature afebrile, heart rate 78 and blood pressure 124/76. HEENT: PERRLA. Extraocular muscles are intact. NECK: Supple. No carotid bruits. No thyromegaly. CHEST: Clear to auscultation. HEART: S1 and S2 regular. ABDOMEN: Soft. EXTREMITIES: Clubbing and cyanosis negative. LABORATORY DATA: Blood workup as follows: Coagulation: INR 2.08. Chemistry shows glucose 203. IMPRESSION: Chronic atrial fibrillation, diabetes, hypertension, hyperlipidemia, coronary artery disease status post percutaneous transluminal coronary angioplasty, ischemic cardiomyopathy, decompensated congestive heart failure, acute on chronic systolic dysfunction, history of coronary artery disease, history of coronary artery bypass graft, history of mitral valve replacement. RECOMMENDATIONS: Continue anticoagulation. Continue rehab, deconditioned body. Continue Lasix 40 mg daily. Continue digoxin. We will follow with you. Thank you for Dr. Valdez for providing us the opportunity in taking care of Chasidy Alicia. Tonia Quinteros MD
[2016-11-28] MEDS: Digoxin 250 mcg (0.25 mg) Tab PO SCH (14:26)
--- NOTE | 2016-11-28 16:30 | CP.PCM.PN ---
Subjective - Date & Time of Evaluation Date of Evaluation: 11/28/16 Time of Evaluation: 14:40 - Subjective Subjective: resting comfortable, no chest pain, no SOB Objective - Vital Signs/Intake and Output Vital Signs (last 24 hours): Temp Pulse Resp BP Pulse Ox 98.1 F 78 12 125/76 100 11/27/16 14:00 11/27/16 14:00 11/27/16 14:00 11/28/16 09:36 11/27/16 14:00 - Medications Medications: Current Medications Acetaminophen (Tylenol 325mg Tab) 650 mg PO Q4H PRN; Protocol PRN Reason: Fever >100.4 F Digoxin (Lanoxin) 0.25 mg PO 1400 [facility] PRN Reason: Protocol Last Admin: 11/28/16 14:26 Dose: 0.25 mg Diphenhydramine HCl (Benadryl) 25 mg PO HS PRN; Protocol PRN Reason: Insomnia Last Admin: 11/27/16 21:32 Dose: 25 mg Famotidine (Pepcid) 20 mg PO 1000,2200 [facility] PRN Reason: Protocol Last Admin: 11/28/16 09:47 Dose: 20 mg Furosemide (Lasix) 80 mg PO DAILY [facility] Last Admin: 11/28/16 09:36 Dose: 80 mg Insulin Human Regular (Humulin R Med) 0 units SC ACHS [facility] PRN Reason: Protocol Last Admin: 11/28/16 11:40 Dose: Not Given Ondansetron HCl (Zofran Inj) 4 mg IVP Q4H PRN; Protocol PRN Reason: Nausea/Vomiting Warfarin Sodium (Coumadin) 3 mg PO 1800 [facility] PRN Reason: Protocol Last Admin: 11/27/16 18:15 Dose: 3 mg - Labs Labs: PT 23.2 SECONDS (9.4-12.5) H 11/28/16 06:30 INR 2.08 (0.93-1.08) H 11/28/16 06:30 - Respiratory Exam Respiratory Exam: Clear to Ausculation Bilateral, NORMAL BREATHING PATTERN - Cardiovascular Exam Cardiovascular Exam: REGULAR RHYTHM - GI/Abdominal Exam GI & Abdominal Exam: Soft, Normal Bowel Sounds - Neurological Exam Neurological Exam: Alert, Awake - Skin Skin Exam: Dry, Warm Assessment and Plan (1) CHF (congestive heart failure) Status: Chronic (2) Ascites Status: Chronic (3) Type II diabetes mellitus Status: Chronic (4) COPD (chronic obstructive pulmonary disease) Status: Chronic - Assessment and Plan (Free Text) Plan: continue physical therapy/sw for discharge planning
[2016-11-29] MEDS: Insulin Reg-MEDIUM-Coverage SC SCH ×4 (06:40→22:03)
[2016-11-29 07:30] LABS: INR 1.81 (0.93-1.08)
--- NOTE | 2016-11-29 10:41 | CP.PCM.PN ---
Subjective - Date & Time of Evaluation Date of Evaluation: 11/29/16 Time of Evaluation: 09:30 - Subjective Subjective: OOB ambulating, denies chest pain, no SOB Objective - Vital Signs/Intake and Output Vital Signs (last 24 hours): Temp Pulse Resp BP Pulse Ox 98.0 F 80 18 110/67 93 L 11/29/16 06:00 11/29/16 06:00 11/29/16 06:00 11/29/16 09:36 11/29/16 06:00 - Medications Medications: Current Medications Acetaminophen (Tylenol 325mg Tab) 650 mg PO Q4H PRN; Protocol PRN Reason: Fever >100.4 F Digoxin (Lanoxin) 0.25 mg PO 1400 [facility] PRN Reason: Protocol Last Admin: 11/28/16 14:26 Dose: 0.25 mg Diphenhydramine HCl (Benadryl) 25 mg PO HS PRN; Protocol PRN Reason: Insomnia Last Admin: 11/28/16 22:29 Dose: 25 mg Famotidine (Pepcid) 20 mg PO 1000,2200 [facility] PRN Reason: Protocol Last Admin: 11/29/16 09:36 Dose: 20 mg Furosemide (Lasix) 80 mg PO DAILY [facility] Last Admin: 11/29/16 09:36 Dose: 80 mg Insulin Human Regular (Humulin R Med) 0 units SC ACHS [facility] PRN Reason: Protocol Last Admin: 11/29/16 06:40 Dose: 1 units Ondansetron HCl (Zofran Inj) 4 mg IVP Q4H PRN; Protocol PRN Reason: Nausea/Vomiting Warfarin Sodium (Coumadin) 4 mg PO 1800 [facility] PRN Reason: Protocol Stop: 11/30/16 23:59 Warfarin Sodium (Coumadin) 3 mg PO 1800 [facility] PRN Reason: Protocol - Labs Labs: PT 20.2 SECONDS (9.4-12.5) H 11/29/16 07:00 INR 1.81 (0.93-1.08) H 11/29/16 07:00 - Respiratory Exam Respiratory Exam: Clear to Ausculation Bilateral, NORMAL BREATHING PATTERN - Cardiovascular Exam Cardiovascular Exam: REGULAR RHYTHM - GI/Abdominal Exam GI & Abdominal Exam: Soft, Normal Bowel Sounds - Extremities Exam Extremities Exam: Normal Inspection - Neurological Exam Neurological Exam: Alert, Awake - Skin Skin Exam: Dry, Warm Assessment and Plan (1) CHF (congestive heart failure) Status: Chronic (2) Ascites Status: Chronic (3) Type II diabetes mellitus Status: Chronic (4) COPD (chronic obstructive pulmonary disease) Status: Chronic - Assessment and Plan (Free Text) Plan: continue physical therapy, for discharge to home in am if remains stable
[2016-11-29] MEDS: Digoxin 250 mcg (0.25 mg) Tab PO SCH (13:13)
--- NOTE | 2016-11-29 15:38 | PN ---
DATE: 11/29/2016 REASON FOR CONSULTATION: Follow up acute decompensated congestive heart failure, acute on chronic systolic dysfunction, coronary artery disease, deconditioning of the body. SUBJECTIVE: Lying flat in the bed, not in apparent distress. Complained that breakfasts get delayed. OBJECTIVE: GENERAL: Not in apparent distress, lying flat in the bed. VITAL SIGNS: Temperature afebrile, heart rate 80, and blood pressure 110/70. HEENT: PERRLA. Extraocular muscles Intact. NECK: Supple. No carotid bruits. No thyromegaly. CHEST: Clear to auscultation. HEART: S1 and S2. Regular. ABDOMEN: Soft. EXTREMITIES: Clubbing and cyanosis negative. LABORATORY DATA: Blood workup as follows: Coagulation profile, INR 1.8. Chemistry, glucose 170. IMPRESSION: Chronic atrial fibrillation with cardiomyopathy, status post myocardial infarction, history of tissue plasminogen activator in the past, history of multiple stents pre coronary artery bypass graft, status post coronary artery bypass graft, history of automatic implantable cardioverter-defibrillator, status post mitral valve repair, and diabetes. RECOMMENDATION: Subtherapeutic INR, we will give 4 mg of Coumadin today and tomorrow and then 3 mg from day after tomorrow. We will follow with you. Thank you Dr. Valdez for providing us the opportunity in taking care of Chasidy Alicia. Tonia Quinteros MD
[2016-11-30] MEDS: Insulin Reg-MEDIUM-Coverage SC SCH ×2 (06:36→12:29)
[2016-11-30 07:13] LABS: BASO # 0.01 K/mm3 (0.0-2.0); BASO % 0.2 % (0.0-3.0); EOS % 0.3 % (1.5-5.0); GRAN # 4.91 (1.4-6.5); HEMATOCRIT 41.5 % (36.0-48.0); LYMPH # 0.8 (1.2-3.4); LYMPH % 12.7 % (22.0-35.0); MEAN CELL VOLUME 86.3 fl (80.0-105.0); MEAN CORPUSCULAR HEMOGLOBIN 26.6 pg (25.0-35.0); MEAN CORPUSCULAR HGB CONC 30.8 g/dl (31.0-37.0); MEAN PLATELET VOLUME 10.7 fl (7.0-11.0); MONO # 0.3 (0.1-0.6); MONO % 4.8 % (1.0-6.0); RED CELL DISTRIBUTION WIDTH 16.8 % (11.5-14.5)
[2016-11-30 07:30] LABS: INR 1.67 (0.93-1.08)
[2016-11-30 07:50] LABS: BLOOD UREA NITROGEN 33 mg/dL (7-21); CALCIUM 8.3 mg/dL (8.4-10.5); CARBON DIOXIDE 31 mmol/L (21-33); CHLORIDE 99 mmol/L (95-110); GFR AFRICAN-AMERICAN > 60; GLUCOSE,RANDOM 242 mg/dL (70-110); POTASSIUM 3.9 mmol/L (3.6-5.0); SODIUM 138 mmol/L (132-148)
--- NOTE | 2016-11-30 12:16 | PN ---
DATE: 11/30/2016 LOCATION: The patient is in room 321, bed 1. REASON FOR CONSULTATION AND FOLLOWUP: Acute decompensated congestive heart failure, acute on chronic systolic dysfunction, coronary artery disease, deconditioning. SUBJECTIVE: The patient lying flat in the bed without chest pain, shortness of breath, or palpitation. PHYSICAL EXAMINATION: VITAL SIGNS: Blood pressure is 102/63, respirations 18, pulse 79, and temperature 97.7. HEENT: Head is normocephalic. Eyes: Pupils normal. Conjunctivae normal. Nose and throat, normal. NECK: JVP low. Carotids are equal. Thorax: AP diameter normal. LUNGS: No significant rales. CARDIOVASCULAR: S1 and S2. Pansystolic murmur grade 3/6. No rub. ABDOMEN: Some amount of ascites present. Bowel sounds normal. EXTREMITIES: No clubbing, no cyanosis. LABORATORY DATA: WBC 6.0, hemoglobin 12.8, hematocrit 41.5, and platelets 150. Sodium 138, potassium 3.9, BUN 33, creatinine 0.8, random glucose 242. DIAGNOSES: Acute on chronic left ventricular systolic failure with congestive heart failure; chronic atrial fibrillation, status post automatic implantable cardioverter-defibrillator insertion, ischemic cardiomyopathy, status post mitral valve repair, diabetes mellitus. PLAN: The patient's prothrombin time today is 18.6 with INR of 1.67. The patient receiving Coumadin 4 mg yesterday and 4 mg today, from tomorrow will be receiving 3 mg daily and we will follow the PT/INR in the morning. The patient is also continued on digoxin 0.25 daily, Lasix 80 mg p.o. daily, famotidine 20 mg daily. The patient is getting physical therapy for deconditioning. We will follow with you. Tonia Roy MD
[2016-11-30] MEDS: Digoxin 250 mcg (0.25 mg) Tab PO SCH (13:23)
[2016-11-30 13:25] VITALS: PULSE 80
[2016-11-30 14:52] VITALS: RESP 16
[2016-11-30 14:54] VITALS: BP 120/71; PULSE 80; TEMP 97.7; O2SAT 96
== END 2016-11-30 16:35 | disposition home or self-care (01) | DRG 292 ==
LOC: TRCU 16:56
PROVIDERS: ADMIT Internal Medicine; ATTEND Internal Medicine
PROC: F07Z9FZ Gait Training/Functional Ambulation Treatment using Assistive, Adaptive, Supportive or Protective Equipment (ICD-10-PCS; principal; 2016-11-24)
PROC: F07L6ZZ Therapeutic Exercise Treatment of Musculoskeletal System - Lower Back / Lower Extremity (ICD-10-PCS; 2016-11-24)
PROC: F08Z2ZZ Grooming/Personal Hygiene Treatment (ICD-10-PCS; 2016-11-28)
PROC: F08Z1FZ Dressing Techniques Treatment using Assistive, Adaptive, Supportive or Protective Equipment (ICD-10-PCS; 2016-11-29)
DX: I11.0 Hypertensive heart disease with heart failure (principal); I50.23 Acute on chronic systolic (congestive) heart failure; R18.8 Other ascites; R64 Cachexia; I25.5 Ischemic cardiomyopathy; I48.2 Chronic atrial fibrillation; J44.9 Chronic obstructive pulmonary disease, unspecified; I25.10 Atherosclerotic heart disease of native coronary artery without angina pectoris; E11.9 Type 2 diabetes mellitus without complications; E78.5 Hyperlipidemia, unspecified; I25.2 Old myocardial infarction; Z95.810 Presence of automatic (implantable) cardiac defibrillator; Z95.1 Presence of aortocoronary bypass graft; Z79.01 Long term (current) use of anticoagulants; Z87.891 Personal history of nicotine dependence; Z68.23 Body mass index [BMI] 23.0-23.9, adult; Z95.2 Presence of prosthetic heart valve; Z88.6 Allergy status to analgesic agent

== ENCOUNTER 2016-12-15 19:57 | Inpatient (IN) | payer OTHER ==
[2016-12-15 19:59] VITALS: BMI 24.0
[2016-12-15] MEDS ORDERED: guaiFENesin 100 mg/5 ml Syrup UD PO PRN (20:03)
[2016-12-15] MEDS ORDERED: Albuterol-Ipratrop 3 mg / 0.5 (3 ml) UD IH PRN (20:03)
[2016-12-15] MEDS: Insulin Reg-LOW-Coverage SC SCH (21:15)
[2016-12-15] MEDS ORDERED: Pneumococcal 23-Valent Vaccine IM ONE (22:15)
[2016-12-15] MEDS ORDERED: Influenza Vaccine 60 mcg/0.5 mL SYR (4YR UP) IM ONE (22:15)
[2016-12-16] MEDS: Albuterol-Ipratrop 3 mg / 0.5 (3 ml) UD IH SCH ×4 (01:56→20:37)
[2016-12-16] MEDS: Insulin Reg-LOW-Coverage SC SCH ×4 (06:40→22:04)
[2016-12-16 07:28] LABS: INR 1.97 (0.93-1.08)
--- NOTE | 2016-12-16 12:43 | CON ---
DATE: 12/16/2016 REASON FOR CONSULTATION AND FOLLOWUP: Continued care in the surgical unit, admitted to the floor with decompensated congestive heart failure, ascites, status post abdominal paracentesis. BRIEF CLINICAL HISTORY: This is a 71-year-old female with past medical history of coronary artery disease way back in 1990, when the patient had inferior wall MO, status post tPA, over the course of time the patient had multiple PTCA, later on the patient had CABG and mitral valve repair. Later on the patient had AICD done at [facility]. Recently the patient had multiple times admitted approximately once or twice a month with decompensated congestive heart failure and ascites, status post multiple abdominal paracentesis. Arrangement have been attempted to made for home Dobutrex, but the patient's home environment is not friendly for Dobutrex, it was dropped off. She was recently admitted to medical floor with decompensated congestive heart failure and was treated with IV Dobutrex, status post abdominal paracentesis with 4 liters of fluid was drained. Now the patient is transferred to Transitional Care Unit with the continuity of care. PAST MEDICAL HISTORY: Significant for longstanding history of coronary artery disease status post inferior wall in 1989, status post tPA was given. Subsequently over the period of time, the patient had multiple PTCA and later on the patient at [facility] had open heart surgery and mitral valve repair. Later on the patient's AICD was also placed in [facility]. Known history of atrial fibrillation on anticoagulation, and history of diabetes, not on oral hypoglycemic agent because of continued to have recurrent hypoglycemia. PAST SURGICAL HISTORY: Significant for incarcerated hernia, abdominal surgery, history of multiple abdominal paracentesis, history of coronary artery disease, history of stent, history of multiple stents, history of bypass surgery, history of pre and post CABG, PTCA, history of mitral valve repair, and history of AICD. CARDIAC WORKUP: Previous cardiac workup as follows: The patient had echocardiography on 04/09/2015 that showed ejection fraction of 20% to 25%, trace to mild mitral regurgitation, status post mitral valve repair, [id number] regurgitation, mitral valve area 1.3 centimeter square, severe tricuspid regurgitation, RV systolic pressure of 51, suggestive of mild to moderate pulmonary hypertension. ALLERGIES: THE PATIENT IS ALLERGIC TO NAPROSYN AND CIPROFLOXACIN. SOCIAL HISTORY: History of alcohol abuse. CURRENT MEDICATIONS: At home was taking Coumadin 3 mg, simvastatin 20 mg, Lasix 30 mg p.o., Pepcid, and digoxin. REVIEW OF SYSTEMS: As per HPI. PHYSICAL EXAMINATION VITAL SIGNS: Temperature is afebrile, heart rate is 81, and blood pressure is 104/64. HEENT: PERRLA. Extraocular muscles are intact. NECK: Supple. No carotid bruit or thyromegaly. CHEST: Clear to auscultation. HEART: S1 and S2 regular. ABDOMEN: Soft. EXTREMITIES: Clubbing and cyanosis negative. LABORATORY DATA: Blood workup as follows: WBC of 4.9, hemoglobin of 11.6, hematocrit of 38.1, and platelet count of 178. Chemistry shows sodium of 130, potassium of 4.9, chloride of 98, carbon dioxide of 29, anion gap of 11, BUN of 21, and creatinine of 0.8 as of 12/14/2016. IMPRESSION: Acute decompensated congestive heart failure acute on chronic secondary to systolic dysfunction, ischemic cardiomyopathy with ejection fraction of 20% to 25%, and history of chronic atrial fibrillation on anticoagulation, INR today is 1.97. Diabetes, hypertension, hyperlipidemia, cardiac cachexia, and recurrent ascites, status post abdominal paracentesis. RECOMMENDATIONS: Continue Lasix, continue digoxin, continue atorvastatin, and continue anticoagulation. We will increase Coumadin to 4 mg today and followed by 3 mg from tomorrow. So, otherwise INR will dip down more tomorrow. We will follow with you. Thank you Dr. Valdez for providing us the opportunity in taking care of the patient, Chasidy Alicia. Tonia Quinteros MD
--- NOTE | 2016-12-16 13:36 | HP ---
DATE: HISTORY OF PRESENT ILLNESS: The patient is a 71-year-old female with a history of recurrent admissions for CHF due to ischemic cardiomyopathy who is admitted through the emergency department on 12/09/2016 for recurrent congestive heart failure. She was seen in consultation for Cardiology, Dr. Roy/Aldair, received IV Lasix as well as IV dobutamine with improvement of her symptoms. She was also seen in consultation by Dr. Yaw Leonard who performed an abdominal paracentesis for recurrent intractable ascites. She is now medically stable and transferred to Transitional Care Unit for further physical therapy and social work with discharge planning. PAST MEDICAL HISTORY: Includes coronary artery disease with ischemic cardiomyopathy status post CABG with implanted defibrillator device, COPD, type 2 diabetes mellitus and paroxysmal atrial fibrillation. PAST SURGICAL HISTORY: There is no significant past surgical history. ALLERGIES: ADHESIVE TAPE, NAPROSYN, and CIPROFLOXACIN. CURRENT MEDICATIONS: Include digoxin 0.25 mg daily, Lasix 80 mg daily, Pepcid 20 mg twice daily, Coumadin 3 mg daily and Benadryl 25 mg at bedtime. SOCIAL HISTORY: The patient has a history of tobacco use in the remote past. There is no history of alcohol or drug abuse. She lives with her grandchildren and is dependent with IADLs and needs assistance with some ADLs. REVIEW OF SYSTEMS: At the present time, the patient denies any chest pain or shortness of breath. She has mild dyspnea on exertion. There is no swelling of the legs. No nausea, no vomiting, no diarrhea, no melena, no bright red blood per rectum. PHYSICAL EXAMINATION: GENERAL: The patient is a well-developed, slightly cachectic female, in no acute distress. VITAL SIGNS: Blood pressure 104/64, temperature 97.2, pulse 81, respiratory rate 14. HEENT: Head is normocephalic, atraumatic. Pupils equal, round and reactive to light. Extraocular movements are intact. There is decreased hearing bilaterally. NECK: Supple with no adenopathy. No carotid bruits. LUNGS: Clear. HEART: Regular rate and rhythm with a grade 2/6 systolic murmur. There is an implanted cardiac defibrillator device in the left chest wall which is intact. ABDOMEN: Soft, nontender. Bowel sounds are normoactive. EXTREMITIES: Without cyanosis, clubbing or edema. NEUROLOGIC: The patient is awake and oriented x3 without focal sensory or motor deficits. SKIN: Warm and dry. IMPRESSION: 1. Ischemic cardiomyopathy with recurrent congestive heart failure and intractable ascites status post abdominal paracentesis. 2. Chronic obstructive pulmonary disease. 3. Type 2 diabetes mellitus. 4. Paroxysmal atrial fibrillation. PLAN: The patient is admitted to the Transitional Care Unit for physical therapy and social work with discharge planning. We will obtain Cardiology consultation. Continue present medications. BRADLEY Urrutia MD
[2016-12-16] MEDS: Digoxin 250 mcg (0.25 mg) Tab PO SCH (14:04)
[2016-12-17] MEDS: Albuterol-Ipratrop 3 mg / 0.5 (3 ml) UD IH SCH ×4 (01:41→19:28)
[2016-12-17] MEDS: Insulin Reg-LOW-Coverage SC SCH ×4 (06:30→21:53)
--- NOTE | 2016-12-17 08:35 | CP.PCM.PN ---
Subjective - Date & Time of Evaluation Date of Evaluation: 12/17/16 Time of Evaluation: 08:25 - Subjective Subjective: resting comfortably, no chest pain, no shortness of breath Objective - Vital Signs/Intake and Output Vital Signs (last 24 hours): Temp Pulse Resp BP Pulse Ox 97.5 F L 56 L 20 122/75 99 12/17/16 06:00 12/17/16 06:27 12/17/16 06:00 12/17/16 06:27 12/17/16 06:00 - Medications Medications: Current Medications Albuterol/Ipratropium (Duoneb 3 Mg/0.5 Mg (3 Ml) Ud) 3 ml IH Q2H PRN PRN Reason: Shortness of Breath Albuterol/Ipratropium (Duoneb 3 Mg/0.5 Mg (3 Ml) Ud) 3 ml IH [id number] [facility] Last Admin: 12/17/16 07:26 Dose: 3 ml Digoxin (Lanoxin) 0.25 mg PO 1400 [facility] Last Admin: 12/16/16 14:04 Dose: 0.25 mg Diltiazem HCl (Cardizem) 30 mg PO Q8 [facility] Last Admin: 12/17/16 06:27 Dose: 30 mg Diphenhydramine HCl (Benadryl) 25 mg PO HS PRN PRN Reason: insominia Last Admin: 12/16/16 21:21 Dose: 25 mg Furosemide (Lasix) 40 mg IVP DAILY [facility] Last Admin: 12/16/16 12:12 Dose: 40 mg Guaifenesin (Robitussin) 100 mg PO Q4H PRN PRN Reason: Cough Last Admin: 12/16/16 17:28 Dose: 100 mg Insulin Human Regular (Humulin R Low) 0 units SC ACHS [facility] PRN Reason: Protocol Last Admin: 12/17/16 06:30 Dose: Not Given Warfarin Sodium (Coumadin) 3 mg PO 1800 [facility] PRN Reason: Protocol - Labs Labs: PT 22.0 SECONDS (9.4-12.5) H 12/16/16 06:45 INR 1.97 (0.93-1.08) H 12/16/16 06:45 - Respiratory Exam Respiratory Exam: Clear to Ausculation Bilateral, NORMAL BREATHING PATTERN - Cardiovascular Exam Cardiovascular Exam: REGULAR RHYTHM - GI/Abdominal Exam GI & Abdominal Exam: Soft, Normal Bowel Sounds - Extremities Exam Extremities Exam: Normal Inspection - Neurological Exam Neurological Exam: Alert, Awake - Skin Skin Exam: Dry, Warm
[2016-12-17 09:16] LABS: INR 2.4 (0.93-1.08)
--- NOTE | 2016-12-17 12:29 | PN ---
DATE: 12/17/2016 REASON FOR CONSULTATION: Continuity of care in the Transitional Care Unit, admitted with acute decompensated congestive heart failure, ascites, status abdominal paracentesis. SUBJECTIVE: The patient denies any chest pain, shortness of breath or any palpitation. Lying flat at the bed. OBJECTIVE: GENERAL: Not in apparent distress. VITAL SIGNS: Temperature afebrile, heart rate 77, blood pressure 103/73. HEENT: PERRLA, intact. NECK: Supple. No carotid bruits or thyromegaly. CHEST: Clear to auscultation. HEART: S1 and S2, regular. ABDOMEN: Soft. EXTREMITIES: Clubbing and cyanosis negative. LABORATORY DATA: Blood workup as follows: INR 2.4. IMPRESSION: Decompensated congestive heart failure, recurrent ascites, recurrent decompensated congestive heart failure, acute on chronic secondary to systolic dysfunction, ischemic, cardiomyopathy, status post an automatic implantable cardioverter-defibrillator, chronic atrial fibrillation, diabetes, hypertension, hyperlipidemia, failure to thrive. RECOMMENDATIONS: Continue digoxin. Continue Lasix. Continue Coumadin,Colace, to keep INR between 2 to 2.5. Change Cardizem to Cardizem CD 120 as blood pressure is tolerated from tomorrow. We will follow with you. Thank you Dr. Valdez for providing us the opportunity in taking care of the patient, Chasidy Alicia. We will discontinue Cardizem 30 mg q. 8 hours after tonight's dose and start Cardizem CD from tomorrow 120. Tonia Quinteros MD
[2016-12-17] MEDS: Digoxin 250 mcg (0.25 mg) Tab PO SCH (14:36)
[2016-12-18] MEDS: Insulin Reg-LOW-Coverage SC SCH ×4 (06:33→21:57)
[2016-12-18 07:20] LABS: INR 2.12 (0.93-1.08)
[2016-12-18] MEDS: Albuterol-Ipratrop 3 mg / 0.5 (3 ml) UD IH SCH ×3 (07:32→19:13)
[2016-12-18] MEDS: diltiaZEM 120 mg/24 Hours CD Cap PO SCH (09:04)
--- NOTE | 2016-12-18 13:36 | CP.PCM.PN ---
Subjective - Date & Time of Evaluation Date of Evaluation: 12/18/16 Time of Evaluation: 11:30 - Subjective Subjective: denies chest pain, no shortness of breath Objective - Vital Signs/Intake and Output Vital Signs (last 24 hours): Temp Pulse Resp BP Pulse Ox 97.1 F L 75 18 107/68 97 12/18/16 10:44 12/18/16 10:44 12/18/16 10:44 12/18/16 10:44 12/18/16 10:44 - Medications Medications: Current Medications Albuterol/Ipratropium (Duoneb 3 Mg/0.5 Mg (3 Ml) Ud) 3 ml IH Q2H PRN PRN Reason: Shortness of Breath Albuterol/Ipratropium (Duoneb 3 Mg/0.5 Mg (3 Ml) Ud) 3 ml IH [id number] [facility] Last Admin: 12/18/16 07:32 Dose: 3 ml Digoxin (Lanoxin) 0.25 mg PO 1400 [facility] Last Admin: 12/17/16 14:36 Dose: 0.25 mg Diltiazem HCl (Cardizem Cd) 120 mg PO DAILY [facility] Last Admin: 12/18/16 09:04 Dose: 120 mg Diphenhydramine HCl (Benadryl) 25 mg PO HS PRN PRN Reason: insominia Last Admin: 12/17/16 22:17 Dose: 25 mg Furosemide (Lasix) 80 mg PO DAILY [facility] Last Admin: 12/18/16 09:04 Dose: 80 mg Guaifenesin (Robitussin) 100 mg PO Q4H PRN PRN Reason: Cough Last Admin: 12/16/16 17:28 Dose: 100 mg Insulin Human Regular (Humulin R Low) 0 units SC ACHS [facility] PRN Reason: Protocol Last Admin: 12/18/16 12:13 Dose: 1 units Warfarin Sodium (Coumadin) 3 mg PO 1800 [facility] PRN Reason: Protocol Last Admin: 12/17/16 17:31 Dose: 3 mg - Labs Labs: PT 23.7 SECONDS (9.4-12.5) H 12/18/16 06:00 INR 2.12 (0.93-1.08) H 12/18/16 06:00 - Respiratory Exam Respiratory Exam: Clear to Ausculation Bilateral, Wheezes - Cardiovascular Exam Cardiovascular Exam: REGULAR RHYTHM, Murmur - GI/Abdominal Exam GI & Abdominal Exam: Soft, Normal Bowel Sounds - Extremities Exam Extremities Exam: Pedal Edema - Neurological Exam Neurological Exam: Alert, Awake - Skin Skin Exam: Dry, Warm Assessment and Plan (1) CHF (congestive heart failure) Status: Chronic (2) COPD (chronic obstructive pulmonary disease) Status: Chronic (3) Cardiomyopathy Status: Chronic (4) Type II diabetes mellitus Status: Chronic (5) Ascites Status: Resolved - Assessment and Plan (Free Text) Plan: continue physical therapy, social work for discharge planning
[2016-12-18] MEDS: Digoxin 250 mcg (0.25 mg) Tab PO SCH (13:38)
[2016-12-18 13:40] VITALS: PULSE 68
--- NOTE | 2016-12-18 14:20 | PN ---
DATE: 12/18/2016 REASON FOR CONSULTATION AND FOLLOWUP: Continuity of care in Transitional Care Unit. Admitted with acute decompensated congestive heart failure, ascites, status post abdominal paracentesis. SUBJECTIVE: The patient denies any chest pain, shortness of breath, any palpitations. Lying flat on the bed. OBJECTIVE: GENERAL: Lying flat on the bed, not in apparent distress. VITAL SIGNS: As follows; temperature afebrile, heart rate 75, blood pressure 107/68. HEENT: PERRLA. Extraocular muscles intact. NECK: Supple. No carotid bruit or thyromegaly. CHEST: Clear to auscultation. HEART: S1 and S2 regular. ABDOMEN: Soft. EXTREMITIES: Clubbing and cyanosis negative. LABORATORY DATA: Blood workup as follows; INR 2.12. IMPRESSION: Decompensated congestive heart failure, acute on chronic systolic dysfunction, ischemic cardiomyopathy, chronic atrial fibrillation, coronary artery disease status post inferior myocardial infarction in 1989, history of multiple percutaneous transluminal coronary angioplasty, status post pre and post CABG, status post automatic implantable cardioverter defibrillator. RECOMMENDATIONS: Continue Cardizem, change to Cardizem CD 120 mg daily, continue anticoagulation, continue rehab. We will follow with you. Hemodynamically, the patient is stable. Thank you Dr. Valdez for providing us the opportunity in take care of the patient. Tonia Quinteros MD
[2016-12-18 16:18] VITALS: RESP 20; TEMP 98.2
[2016-12-19 06:04] VITALS: O2SAT 92
[2016-12-19] MEDS: Insulin Reg-LOW-Coverage SC SCH ×2 (06:38→12:21)
[2016-12-19] MEDS ORDERED: Potassium Chloride 20 mEq ER Tab PO SCH (08:00)
[2016-12-19] MEDS: Albuterol-Ipratrop 3 mg / 0.5 (3 ml) UD IH SCH ×2 (08:11→13:27)
--- NOTE | 2016-12-19 09:24 | CP.PCM.PN ---
Subjective - Date & Time of Evaluation Date of Evaluation: 12/19/16 Time of Evaluation: 08:45 - Subjective Subjective: denies chest pain, no shortness of breath Objective - Vital Signs/Intake and Output Vital Signs (last 24 hours): Temp Pulse Resp BP Pulse Ox 98.2 F 91 H 20 92/59 L 92 L 12/19/16 06:00 12/19/16 06:00 12/19/16 06:00 12/19/16 06:00 12/19/16 06:00 Intake and Output: 12/19/16 12/19/16 06:59 18:59 Intake Total 420 Balance 420 - Medications Medications: Current Medications Albuterol/Ipratropium (Duoneb 3 Mg/0.5 Mg (3 Ml) Ud) 3 ml IH Q2H PRN PRN Reason: Shortness of Breath Albuterol/Ipratropium (Duoneb 3 Mg/0.5 Mg (3 Ml) Ud) 3 ml IH [id number] [facility] Last Admin: 12/19/16 08:11 Dose: 3 ml Digoxin (Lanoxin) 0.25 mg PO 1400 [facility] Last Admin: 12/18/16 13:38 Dose: 0.25 mg Diltiazem HCl (Cardizem Cd) 120 mg PO DAILY [facility] Last Admin: 12/18/16 09:04 Dose: 120 mg Diphenhydramine HCl (Benadryl) 25 mg PO HS PRN PRN Reason: insominia Last Admin: 12/17/16 22:17 Dose: 25 mg Furosemide (Lasix) 80 mg PO DAILY [facility] Last Admin: 12/18/16 09:04 Dose: 80 mg Guaifenesin (Robitussin) 100 mg PO Q4H PRN PRN Reason: Cough Last Admin: 12/16/16 17:28 Dose: 100 mg Insulin Human Regular (Humulin R Low) 0 units SC ACHS [facility] PRN Reason: Protocol Last Admin: 12/19/16 06:38 Dose: Not Given Warfarin Sodium (Coumadin) 3 mg PO 1800 [facility] PRN Reason: Protocol Last Admin: 12/18/16 17:15 Dose: 3 mg - Labs Labs: PT 23.7 SECONDS (9.4-12.5) H 12/18/16 06:00 INR 2.12 (0.93-1.08) H 12/18/16 06:00 - Respiratory Exam Respiratory Exam: Clear to Ausculation Bilateral, NORMAL BREATHING PATTERN - Cardiovascular Exam Cardiovascular Exam: REGULAR RHYTHM, Murmur - Extremities Exam Extremities Exam: Pedal Edema - Neurological Exam Neurological Exam: Alert, Awake - Skin Skin Exam: Dry, Warm Assessment and Plan (1) CHF (congestive heart failure) Status: Chronic (2) COPD (chronic obstructive pulmonary disease) Status: Chronic (3) Cardiomyopathy Status: Chronic (4) Type II diabetes mellitus Status: Chronic (5) Ascites Status: Resolved - Assessment and Plan (Free Text) Plan: continue rehab, social work for discharge planning
[2016-12-19] MEDS: diltiaZEM 120 mg/24 Hours CD Cap PO SCH (10:44)
[2016-12-19 10:47] VITALS: BP 103/77; PULSE 82
[2016-12-19] MEDS: Digoxin 250 mcg (0.25 mg) Tab PO SCH (13:59)
--- NOTE | 2016-12-19 14:15 | PN ---
DATE: 12/19/2016 LOCATION: The patient is in room 320, bed 1. REASON FOR CONSULTATION AND FOLLOWUP: Decompensated congestive heart failure, ascites, status post abdominal paracentesis, and status post AICD insertion. SUBJECTIVE: The patient is lying flat in bed without any respiratory distress, chest pain, or palpitation. PHYSICAL EXAMINATION: VITAL SIGNS: Blood pressure 103/77, respirations 20, pulse 82, and temperature 98.2. HEENT: Head is normocephalic. Eyes, pupils are normal. Conjunctivae normal. NECK: JVP low. Carotids equal. THORAX: AP diameter normal. LUNGS: Clear. CARDIOVASCULAR: S1 and S2. Pansystolic murmur. ABDOMEN: Protuberant with ascites. PERIPHERIES: The patient has bilateral edema on both legs. IMPRESSION: Decompensated congestive heart failure, acute on chronic systolic dysfunction, ischemic cardiomyopathy, chronic atrial fibrillation, coronary artery disease, status post inferior myocardial infarction in 1989, history of multiple angioplasties and stent insertion, status post coronary artery bypass grafting, status post automatic implantable cardioverter defibrillator insertion. PLAN: The patient is on Lasix 80 p.o. daily, but she does have swelling of legs and still has significant ascites. We will discontinue the p.o. Lasix and we will give Lasix 40 IV b.i.d. The patient is on Cardizem CD 120 daily and warfarin 3 mg p.o. daily. We will add potassium 20 mEq daily and digoxin 0.25 daily. We will check SMA-7 and magnesium level in the morning. Yesterday, the patient's prothrombin time was 23.7 and INR was 2.12. We will follow with you. Tonia Roy MD
== END 2016-12-19 14:54 | disposition home or self-care (01) | DRG 292 ==
LOC: TRCU 19:57
PROVIDERS: ADMIT Internal Medicine; ATTEND Internal Medicine
PROC: F07Z9FZ Gait Training/Functional Ambulation Treatment using Assistive, Adaptive, Supportive or Protective Equipment (ICD-10-PCS; principal; 2016-12-17)
PROC: F07L6YZ Therapeutic Exercise Treatment of Musculoskeletal System - Lower Back / Lower Extremity using Other Equipment (ICD-10-PCS; 2016-12-17)
DX: I11.0 Hypertensive heart disease with heart failure (principal); R18.8 Other ascites; R64 Cachexia; I50.23 Acute on chronic systolic (congestive) heart failure; I25.5 Ischemic cardiomyopathy; I48.0 Paroxysmal atrial fibrillation; J44.9 Chronic obstructive pulmonary disease, unspecified; I25.10 Atherosclerotic heart disease of native coronary artery without angina pectoris; I27.20 Pulmonary hypertension, unspecified; E11.9 Type 2 diabetes mellitus without complications; E78.5 Hyperlipidemia, unspecified; R62.7 Adult failure to thrive; I25.2 Old myocardial infarction; Z68.24 Body mass index [BMI] 24.0-24.9, adult; Z79.01 Long term (current) use of anticoagulants; Z95.810 Presence of automatic (implantable) cardiac defibrillator; Z95.5 Presence of coronary angioplasty implant and graft; Z95.1 Presence of aortocoronary bypass graft; Z88.6 Allergy status to analgesic agent

== ENCOUNTER 2016-12-25 17:07 | Inpatient (IN) | payer MEDICARE, OTHER ==
[2016-12-25 17:08] VITALS: BMI 24.0
[2016-12-25] MEDS ORDERED: Morphine 2 mg/ml ISec IVP STA (18:45)
[2016-12-25] MEDS ORDERED: Iohexol 240 (50 ml) ONE (18:51)
--- NOTE | 2016-12-25 18:51 | ED PDOC ---
Arrival/HPI - General Chief Complaint: Abdominal Pain Time Seen by Provider: 12/25/16 17:23 Historian: Patient - History of Present Illness Narrative History of Present Illness (Text): 12/25/16 18:51 A 71 year old female, whose past medical history includes anemia, infrarenal aortic aneurysm ,ischemic cardiomyopathy diabetes, COPD and intractable paracentesis 2/2/ to chf requiring paracentesis , presents to the emergency department complaining of 3 days of increasing abdominal distention and mild nausea. Patient reports abdominal distention makes it harder to breath. Notes fluid build up and thinks she needs another paracentesis. Patient denies any chest pain, palpitations, cough, fever, chills or any other complaints at this time. 12/25/16 23:42 12/25/16 23:43 Time/Duration: Other (3 days) Symptom Onset: Sudden Symptom Course: Unchanged Activities at Onset: Rest Context: Home Past Medical History - Provider Review Nursing Documentation Reviewed: Yes - Infectious Disease Hx of Infectious Diseases: None - Tetanus Immunization Tetanus Immunization: Unknown - Cardiac Hx Cardiac Disorders: Yes (ND; coronary stents) Hx Congestive Heart Failure: Yes - Pulmonary Hx Chronic Obstructive Pulmonary Disease (COPD): Yes - Neurological Hx Neurological Disorder: Yes Hx Dementia: Yes Hx Transient Ischemic Attacks (TIA): Yes Other/Comment: syncope - HEENT Hx HEENT Disorder: Yes Hx Deafness: Yes - Renal Hx Renal Disorder: No - Endocrine/Metabolic Hx Diabetes Mellitus Type 2: Yes - Hematological/Oncological Hx Blood Disorders: Yes Hx Anemia: Yes - Integumentary Hx Dermatological Disorder: Yes Other/Comment: MOTTLED LEGS AND ARMS. - Musculoskeletal/Rheumatological Hx Falls: Yes (past) - Gastrointestinal Hx Gastrointestinal Disorders: Yes (ascites) - Genitourinary/Gynecological Hx Genitourinary Disorders: Yes Hx Incontinence: Yes - Psychiatric Hx Psychophysiologic Disorder: Yes Hx Anxiety: Yes Hx Depression: Yes Hx Substance Use: No - Surgical History Hx Appendectomy: Yes Hx Cardiac Catheterization: Yes Hx Cholecystectomy: Yes Hx Coronary Stent: Yes Hx Open Heart Surgery: Yes Hx Orthopedic Surgery: Yes (laminectomy) Other/Comment: Herniated disc repair, tonsilectomy - Anesthesia Hx Anesthesia: No - Suicidal Assessment Feels Threatened In Home Enviroment: No Family/Social History - Physician Review Nursing Documentation Reviewed: Yes Family/Social History: No Known Family HX Smoking Status: Current Some Days Smoker Hx Alcohol Use: No Hx Substance Use: No Hx Substance Use Treatment: No Allergies/Home Meds Allergies/Adverse Reactions: Allergies adhesive tape Allergy (Verified 12/25/16 17:26) REDNESS naproxen Allergy (Verified 12/25/16 17:26) VOMITING ciprofloxacin Adverse Reaction (Verified 12/25/16 17:26) ANAPHYLAXIS Home Medications: Home Meds Medication Instructions Recorded Confirmed No Known Home Med 12/25/16 12/25/16 Review of Systems - Physician Review All systems were reviewed & negative as marked: Yes - Review of Systems Constitutional: absent: Fevers, Other (chills) Respiratory: absent: Cough Cardiovascular: absent: Chest Pain, Palpitations Gastrointestinal: Nausea, Other (abdominal distention) Physical Exam Vital Signs Reviewed: Yes Vital Signs Temp Pulse Resp BP Pulse Ox 12/25/16 23:39 86 90 H 125/82 88 L 12/25/16 19:45 83 15 132/78 97 12/25/16 17:24 98.1 F 85 18 120/85 Temperature: Afebrile Blood Pressure: Normal Pulse: Regular Respiratory Rate: Normal Appearance: Positive for: Well-Appearing, Non-Toxic, Comfortable Pain Distress: None Mental Status: Positive for: Alert and Oriented X 3 - Systems Exam Head: Present: Atraumatic, Normocephalic Pupils: Present: PERRL Extroacular Muscles: Present: EOMI Conjunctiva: Present: Normal Mouth: Present: Moist Mucous Membranes Neck: Present: Normal Range of Motion Respiratory/Chest: Present: Clear to Auscultation, Good Air Exchange. No: Respiratory Distress, Accessory Muscle Use Cardiovascular: Present: Regular Rate and Rhythm, Normal S1, S2. No: Murmurs Abdomen: Present: Tenderness (RUQ ), Distention (positive fluid wave, but not peritoneal) Back: Present: Normal Inspection Upper Extremity: Present: Normal Inspection. No: Cyanosis, Edema Lower Extremity: Present: Other (b/l pretibial edema, worse on the right) Neurological: Present: GCS=15, CN II-XII Intact, Speech Normal Skin: Present: Warm, Dry, Normal Color. No: Rashes Psychiatric: Present: Alert, Oriented x 3, Normal Insight, Normal Concentration Medical Decision Making ED Course and Treatment: 12/25/16 18:48 Impression: A 71 year old female with abdominal distention and mild nausea. Plan: -- CT abd/pelvis -- US abdomen -- US paracentesis -- labs -- Morphine -- Reassess and disposition Prior Visits: Notes and results from previous visits were reviewed. Patient last reported to the emergency department on 12/09/16 for evaluation of shortness of breath. Progress Notes: US Abdomen Complete FINDINGS: Liver: Measured at 16.8 cm. Gallbladder: Status post cholecystectomy. Common bile duct: No dilation. Pancreas: 9 mm hypoechoic lesion in the pancreatic head. Kidneys: Right kidney measured at 9.3 cm. Left kidney measured 9.9 cm. No hydronephrosis. Spleen: No splenomegaly. Aorta/IVC and: Limited evaluation. No acute abnormality as visualized. IMPRESSION: Ascites. 9 mm hypoechoic lesion in the pancreatic head. Further evaluation can be performed with CT/MRI with dedicated protocol. Dictated and Authenticated by: Laya Damico MD 12/25/2016 9:45 PM Eastern Time ([place] & Jan) - Lab Interpretations Lab Results: 12/25/16 20:10 12/25/16 20:10 Lab Results 12/25/16 20:10: Sodium 138, Potassium 4.8, Chloride 98, Carbon Dioxide 33, Anion Gap 12, BUN 18, Creatinine 0.8, Est GFR ( Amer) > 60, Est GFR (Non- Af Amer) > 60, Random Glucose 85, Calcium 8.8, Total Bilirubin 0.9, AST 33, ALT 31, Alkaline Phosphatase 185 H D, Total Protein 7.5, Albumin 3.4, Globulin 4.0, Albumin/Globulin Ratio 0.9 L, Lipase 23 12/25/16 20:10: PT 31.3 H, INR 2.81 H, APTT 53.2 H 12/25/16 20:10: WBC 6.0 D, RBC 5.58, Hgb 15.0 D, Hct 48.4 H, MCV 86.7, MCH 26.9, MCHC 31.0, RDW 16.2 H, Plt Count 184, MPV 10.3, Gran % 83.3 H, Lymph % ( Auto) 10.5 L, [place] % (Auto) 5.7, Eos % (Auto) 0.3 L, Baso % (Auto) 0.2, Gran # 4.98, Lymph # 0.6 L, [place] # 0.3, Eos # 0.0, Baso # 0.01 I have reviewed the lab results: Yes - RAD Interpretation Radiology Orders: 12/25/16 18:44 ABD PELVIS PO & IV CONTRAST [CT] Stat 12/25/16 18:46 ABDOMEN COMPLETE [US] Stat PARACENTESIS [US] Stat - Medication Orders Current Medication Orders: Discontinued Medications Morphine Sulfate (Morphine) 2 mg IVP STAT STA Stop: 12/25/16 18:46 Last Admin: 12/25/16 19:29 Dose: 2 mg MAR Pain Assessment Document 12/25/16 19:29 EQ (Rec: 12/25/16 19:29 EQ [facility] [id number]) Pain Reassessment Is this a pain reassessment? No Sleep Is patient sleeping during reassessment? No Presence of Pain Presence of Pain Yes IVP Administration Document 12/25/16 19:29 EQ (Rec: 12/25/16 19:29 EQ [facility] [id number]) Charges for Administration # of IVP Administrations 1 - Scribe Statement The provider has reviewed the documentation as recorded by the Javier Matthews Provider Scribe Attestation: All medical record entries made by the Scribe were at my direction and personally dictated by me. I have reviewed the chart and agree that the record accurately reflects my personal performance of the history, physical exam, medical decision making, and the department course for this patient. I have also personally directed, reviewed, and agree with the discharge instructions and disposition. Disposition/Present on Arrival - Present on Arrival Any Indicators Present on Arrival: No History of DVT/PE: No History of Uncontrolled Diabetes: No Urinary Catheter: No History of Decub. Ulcer: No History Surgical Site Infection Following: None - Disposition Have Diagnosis and Disposition been Completed?: Yes Diagnosis: CHF (congestive heart failure), Ascites Disposition: HOSPITALIZED Disposition Time: 23:47 Patient Plan: Admission Condition: FAIR Discharge Instructions (ExitCare): Heart Failure (ED) Referrals: Garcia Valdez JD, MD [Primary Care Provider] - Follow up with primary Forms: [employer] (Romansh)
[2016-12-25 20:25] LABS: BASO # 0.01 K/mm3 (0.0-2.0); BASO % 0.2 % (0.0-3.0); EOS % 0.3 % (1.5-5.0); GRAN # 4.98 (1.4-6.5); GRAN % 83.3 % (50.0-68.0); HEMATOCRIT 48.4 % (36.0-48.0); LYMPH # 0.6 (1.2-3.4); LYMPH % 10.5 % (22.0-35.0); MEAN CELL VOLUME 86.7 fl (80.0-105.0); MEAN CORPUSCULAR HEMOGLOBIN 26.9 pg (25.0-35.0); MEAN PLATELET VOLUME 10.3 fl (7.0-11.0); MONO # 0.3 (0.1-0.6); MONO % 5.7 % (1.0-6.0); RED CELL DISTRIBUTION WIDTH 16.2 % (11.5-14.5)
[2016-12-25 20:48] LABS: INR 2.81 (0.93-1.08); PARTIAL THROMBOPLASTIN TIME 53.2 Seconds (25.1-36.5)
--- NOTE | 2016-12-25 21:45 | US ---
EXAM: US Abdomen Complete CLINICAL HISTORY: 71 years old, female; Pain; Abdominal pain; Generalized; Prior surgery; Surgery date: 6+ months; Surgery type: Cholecystectomy; Additional info: Ruq ttp TECHNIQUE: Real-time ultrasound of the abdomen (complete) with image documentation. COMPARISON: US - PARACENTESIS 2016-12-13 11:30 FINDINGS: Liver: Measured at 16.8 cm. Gallbladder: Status post cholecystectomy. Common bile duct: No dilation. Pancreas: 9 mm hypoechoic lesion in the pancreatic head. Kidneys: Right kidney measured at 9.3 cm. Left kidney measured 9.9 cm. No hydronephrosis. Spleen: No splenomegaly. Aorta/IVC and: Limited evaluation. No acute abnormality as visualized. IMPRESSION: Ascites. 9 mm hypoechoic lesion in the pancreatic head. Further evaluation can be performed with CT/MRI with dedicated protocol.
[2016-12-25 22:29] LABS: ALB/GLOB RATIO 0.9 (1.1-1.8); ALKALINE PHOSPHATASE 185 U/L (38-126); ALT/SGPT 31 U/L (7-56); AST/SGOT 33 U/L (14-36); BILIRUBIN,TOTAL 0.9 mg/dL (0.2-1.3); BLOOD UREA NITROGEN 18 mg/dL (7-21); CALCIUM 8.8 mg/dL (8.4-10.5); CARBON DIOXIDE 33 mmol/L (21-33); CHLORIDE 98 mmol/L (98-107); GFR AFRICAN-AMERICAN > 60; GLUCOSE,RANDOM 85 mg/dL (70-110); POTASSIUM 4.8 mmol/L (3.6-5.0); SODIUM 138 mmol/L (132-148); TOTAL PROTEIN 7.5 g/dL (5.8-8.3)
[2016-12-25] MEDS ORDERED: Iodixanol 320 MG/ML 100 ML BOTTLE IV ONE (22:35)
[2016-12-25 22:37] LABS: LIPASE 23 U/L (23-300)
--- NOTE | 2016-12-25 23:34 | CT ---
EXAM: CT Abdomen and Pelvis With Intravenous Contrast CLINICAL HISTORY: 71 years old, female; Pain; Abdominal pain; Other: Ru qttp/abdominal distention TECHNIQUE: Axial computed tomography images of the abdomen and pelvis with intravenous contrast. All CT scans at this facility use one or more dose reduction techniques, viz.: automated exposure control; ma/kV adjustment per patient size (including targeted exams where dose is matched to indication; i.e. head); or iterative reconstruction technique. MIP reconstructed images were created and reviewed. Coronal and sagittal reformatted images were created and reviewed. CONTRAST: 100 mL of visipaque 320 administered intravenously. COMPARISON: CT - ABD PELVIS PO IV CONTRAST 2016-10-26 18:34 FINDINGS: Lower thorax: Cardiomegaly. Dilatation of right atrium. Reflux of contrast into hepatic veins and inferior vena cava. Coronary artery calcification. Prosthetic mitral valve. Surgical clips and pacemaker leads. Minimal right effusion. Hyperinflated lung owusu. Bulla the right lung base. Atelectasis. Small hiatal hernia. ABDOMEN: Liver: No acute abnormality as visualized. Gallbladder and bile ducts: Status post cholecystectomy. Pancreas: Atrophy. Evidence of a 9 mm cystic focus in the region of the pancreatic head, limited evaluation without dedicated multiphase imaging. Spleen: No splenomegaly. Adrenals: Left adrenal hypertrophy. No focal mass appreciated. Kidneys and ureters: Symmetric enhancement. No hydronephrosis. Stomach and bowel: Paucity of enteric contrast limits evaluation. Gastric wall appears prominent. No small bowel obstruction. Anastomosis sutures in region of sigmoid colon. Appendix: Not visualized. PELVIS: Bladder: No acute abnormality as visualized. Reproductive: No acute abnormality as visualized. ABDOMEN and PELVIS: Intraperitoneal space: Severe ascites. No free air. Bones: No acute fracture. Degenerative changes, most notable at L3-L4. Soft tissues: Subcutaneous edema. Vasculature: Infrarenal aortic aneurysm measuring 3.4 cm. Atherosclerosis. Lymph nodes: Shotty nodes. IMPRESSION: Continued severe ascites. Subcutaneous edema. Cardiomegaly. Dilatation of right atrium. Reflux of contrast into hepatic veins and inferior vena cava. Coronary artery calcification. Prosthetic mitral valve. Minimal right effusion. Hyperinflated lung owusu. Bulla the right lung base. Atelectasis. Small hiatal hernia. Infrarenal aortic aneurysm measuring 3.4 cm. Evidence of a 9 mm cystic focus in the region of the pancreatic head, limited evaluation without dedicated multiphase imaging. More remote prior studies are not available for comparison, comparison with any remote prior study can be used to evaluate for stability. Please see additional details/findings as above.
[2016-12-26] MEDS: Digoxin 250 mcg (0.25 mg) Tab PO SCH (14:50)
[2016-12-26] MEDS ORDERED: DOBUTamine 500mg/250ml D5W 500 MG/250 ML BAG IV PRN (19:10)
--- NOTE | 2016-12-26 21:04 | HP ---
ADMISSION HISTORY AND PHYSICAL HISTORY OF PRESENT ILLNESS: The patient is a 71-year-old female with her history of recurrent admissions for CHF and intractable ascites due to ischemic cardiomyopathy, who presents to the Emergency Department on 12/25/2016 with increasing shortness of breath, abdominal pain with distention. She is now admitted to the telemetry unit for further evaluation and management. She denies any chest pain. She has some dyspnea on exertion. No fever. No chills. No cough. No hemoptysis. PAST MEDICAL HISTORY: Includes coronary artery disease with ischemic cardiomyopathy, status post CABG with implanted defibrillator device, COPD, type 2 diabetes mellitus and paroxysmal atrial fibrillation. PAST SURGICAL HISTORY: There is no significant past surgical history. ALLERGIES: INCLUDE ADHESIVE TAPE, NAPROSYN, AND CIPROFLOXACIN. CURRENT MEDICATIONS: Include digoxin 0.25 mg daily, Lasix 80 mg daily, Pepcid 20 mg twice daily, Coumadin 3 mg daily and Benadryl 25 mg at bedtime. SOCIAL HISTORY: The patient has a history of tobacco use in the remote past. There is no history of alcohol or drug abuse. She lives with her grandchildren and is dependent with ADLs and needs some assistance with ADLs. REVIEW OF SYSTEMS: At the present time, the patient has some swelling of her legs. There is no nausea, no vomiting, no diarrhea, no melena, no bright red blood per rectum, no jaundice. PHYSICAL EXAMINATION: GENERAL: The patient is a well-developed, slightly cachectic female, in no acute distress. VITAL SIGNS: Blood pressure 124/77, temperature 97.3, pulse 92, respiratory rate 20. HEENT: Head is normocephalic, atraumatic. Pupils equal, round and reactive to light. Extraocular movements are intact. There is decreased hearing bilaterally. NECK: Supple with no adenopathy. No carotid bruits. LUNGS: Show few bibasilar crackles. HEART: Regular rate and rhythm with a grade 2/6 systolic murmur. There is an implanted cardiac defibrillator device in the left chest wall, which is intact. ABDOMEN: Distended, slightly tense, nontender. Bowel sounds are normoactive. EXTREMITIES: There is 1 to 2+ bilateral pitting edema to the ankles. NEUROLOGIC: The patient is awake and oriented x3 without focal sensory or motor deficits. SKIN: Warm and dry. LABORATORY DATA: WBC 6.0, hemoglobin 15.0, hematocrit 48.4. Sodium 138, potassium 4.8, chloride 98, CO2 33, BUN 18, creatinine 0.8. PT 31.3, INR 2.81. CT of the abdomen and pelvis shows severe ascites, subcutaneous edema. IMPRESSION: 1. Ischemic cardiomyopathy with recurrent congestive heart failure and intractable ascites. 2. Chronic obstructive pulmonary disease. 3. Type 2 diabetes mellitus. 4. Paroxysmal atrial fibrillation. PLAN: The patient is admitted to the telemetry unit. We will obtain Cardiology consultation with Dr. Roy/Aldair. Start IV Lasix, oxygen, IV dobutamine. We will obtain consultation with Dr. Yaw Leonard for repeat paracentesis. Physical therapy and social work for discharge planning. Garcia Valdez JD/
[2016-12-27 07:08] LABS: MEAN CORPUSCULAR HGB CONC 30.3 g/dl (31.0-37.0); MEAN PLATELET VOLUME 10.2 fl (7.0-11.0); RED CELL DISTRIBUTION WIDTH 16.2 % (11.5-14.5)
[2016-12-27 07:20] LABS: ALB/GLOB RATIO 0.8 (1.1-1.8); ALKALINE PHOSPHATASE 160 U/L (38-126); ALT/SGPT 31 U/L (7-56); AST/SGOT 32 U/L (14-36); BILIRUBIN,TOTAL 0.8 mg/dL (0.2-1.3); BLOOD UREA NITROGEN 22 mg/dL (7-21); CALCIUM 8.2 mg/dL (8.4-10.5); CARBON DIOXIDE 34 mmol/L (21-33); CHLORIDE 99 mmol/L (98-107); GFR AFRICAN-AMERICAN > 60; GLUCOSE,RANDOM 118 mg/dL (70-110); SODIUM 137 mmol/L (132-148); TOTAL PROTEIN 7.1 g/dL (5.8-8.3)
[2016-12-27 07:23] LABS: INR 2.96 (0.93-1.08)
[2016-12-27] MEDS: Digoxin 250 mcg (0.25 mg) Tab PO SCH (14:15)
--- NOTE | 2016-12-27 19:07 | CP.PCM.PN ---
Subjective - Date & Time of Evaluation Date of Evaluation: 12/27/16 Time of Evaluation: 14:30 - Subjective Subjective: refusing paracentesis, denies chest pain, less short of breath Objective - Vital Signs/Intake and Output Vital Signs (last 24 hours): Temp Pulse Resp BP Pulse Ox 97.6 F 85 19 122/80 90 L 12/27/16 06:00 12/27/16 14:00 12/27/16 06:00 12/27/16 10:49 12/27/16 06:00 - Medications Medications: Current Medications Digoxin (Lanoxin) 0.25 mg PO 1400 [facility] Last Admin: 12/27/16 14:15 Dose: 0.25 mg Diphenhydramine HCl (Benadryl) 25 mg PO HS PRN PRN Reason: Insomnia Famotidine (Pepcid) 20 mg PO 1000,2200 [facility] Last Admin: 12/27/16 10:49 Dose: 20 mg Furosemide (Lasix) 80 mg IVP DAILY [facility] Last Admin: 12/27/16 10:49 Dose: 80 mg Dobutamine HCl/Dextrose (Dobutamine/Dextrose 5% 500mg/250ml) 500 mg in 250 mls @ 5.103 mls/hr IV .Q24H PRN; Protocol; 2.5 MCG/KG/MIN PRN Reason: TITRATE PER PROTOCOL Last Admin: 12/26/16 19:27 Dose: 2.5 mcg/kg/min, 5.103 mls/hr Warfarin Sodium (Coumadin) 3 mg PO 1800 [facility] PRN Reason: Protocol Last Admin: 12/26/16 17:45 Dose: 3 mg - Labs Labs: 12/27/16 06:25 12/27/16 06:25 PT 33.3 SECONDS (9.4-12.5) H 12/27/16 06:25 INR 2.96 (0.93-1.08) H 12/27/16 06:25 APTT 53.2 Seconds (25.1-36.5) H 12/25/16 20:10 - Respiratory Exam Respiratory Exam: Rales - Cardiovascular Exam Cardiovascular Exam: REGULAR RHYTHM, Murmur - GI/Abdominal Exam GI & Abdominal Exam: Distended, Firm, Normal Bowel Sounds - Extremities Exam Extremities Exam: Pedal Edema - Neurological Exam Neurological Exam: Alert, Awake - Skin Skin Exam: Dry, Warm Assessment and Plan (1) Ascites Status: Chronic (2) CHF (congestive heart failure) Status: Chronic (3) COPD (chronic obstructive pulmonary disease) Assessment & Plan: continue IV Lasix, dobutamine, cardiology follow-up, social work for discharge planning Status: Chronic (4) Type II diabetes mellitus Status: Chronic - Assessment and Plan (Free Text) Plan: continue IV Lasix, dobutamine, cardiology follow-up, physical therapy, social work for discharhe planning
--- NOTE | 2016-12-28 02:09 | CP.PCM.PN ---
Subjective - Date & Time of Evaluation Date of Evaluation: 12/28/16 Time of Evaluation: 01:58 - Subjective Subjective: S:It was requested to insert a heparin lock. Has no complaints. Pertinent medical record was reviewed. Receiving dobutamine. O: Last Vital Signs 3 Temp 98.4 F 12/28/16 00:00 Pulse 80 12/28/16 00:00 Resp 18 12/28/16 00:00 BP 112/78 12/28/16 00:00 Pulse Ox 86 L 12/27/16 16:00 Awake, alert, not in distress. LUNGS:Normal breathing pattern. A:Poor venous access. Encounter for intravenous line placement. P:Patient refused to have heparin lock inserted. Instructed nurse to call me when she is ready . Objective - Vital Signs/Intake and Output Vital Signs (last 24 hours): Temp Pulse Resp BP Pulse Ox 98.4 F 80 18 112/78 86 L 12/28/16 00:00 12/28/16 00:00 12/28/16 00:00 12/28/16 00:00 12/27/16 16:00 - Medications Medications: Current Medications Digoxin (Lanoxin) 0.25 mg PO 1400 [facility] Last Admin: 12/27/16 14:15 Dose: 0.25 mg Diphenhydramine HCl (Benadryl) 25 mg PO HS PRN PRN Reason: Insomnia Famotidine (Pepcid) 20 mg PO 1000,2200 [facility] Last Admin: 12/27/16 22:39 Dose: 20 mg Furosemide (Lasix) 80 mg IVP DAILY [facility] Last Admin: 12/27/16 10:49 Dose: 80 mg Dobutamine HCl/Dextrose (Dobutamine/Dextrose 5% 500mg/250ml) 500 mg in 250 mls @ 5.103 mls/hr IV .Q24H PRN; Protocol; 2.5 MCG/KG/MIN PRN Reason: TITRATE PER PROTOCOL Last Admin: 12/26/16 19:27 Dose: 2.5 mcg/kg/min, 5.103 mls/hr Warfarin Sodium (Coumadin) 3 mg PO 1800 [facility] PRN Reason: Protocol Last Admin: 12/26/16 17:45 Dose: 3 mg - Labs Labs: 12/27/16 06:25 12/27/16 06:25 PT 33.3 SECONDS (9.4-12.5) H 12/27/16 06:25 INR 2.96 (0.93-1.08) H 12/27/16 06:25 APTT 53.2 Seconds (25.1-36.5) H 12/25/16 20:10
[2016-12-28 06:53] LABS: BLOOD UREA NITROGEN 20 mg/dL (7-21); CARBON DIOXIDE 32 mmol/L (21-33); CHLORIDE 100 mmol/L (98-107); GFR AFRICAN-AMERICAN > 60; GLUCOSE,RANDOM 121 mg/dL (70-110); MAGNESIUM 1.8 mg/dL (1.7-2.2); POTASSIUM 4.2 mmol/L (3.6-5.0); SODIUM 137 mmol/L (132-148)
[2016-12-28 06:57] LABS: INR 2.59 (0.93-1.08)
--- NOTE | 2016-12-28 08:11 | CON ---
DATE: 12/26/2016 REASON FOR CONSULTATION AND FOLLOWUP: Decompensated congestive heart failure acute on chronic secondary to systolic dysfunction, ischemic cardiomyopathy. BRIEF CLINICAL HISTORY: This is a 71-year-old female with past medical history significant for ischemic cardiomyopathy, history of coronary artery disease, history of OR in 1989, history of TPA, at that time history of CABG, history of AICD, recently discharged after having been treated with IV Dobutrex and abdominal paracentesis. She came out with a complaint of abdominal distention and shortness of breath. Denies any chest pain. PAST MEDICAL HISTORY: Significant for longstanding history of coronary artery disease status post inferior wall OR in 1989, status post TPA was given. Subsequently over the period of time, the patient had multiple PTCA and later on the patient had a coronary artery bypass at [facility] and mitral valve repair. A year later, the patient had AICD placement in [facility]. Known history of atrial fibrillation on anticoagulation, and history of diabetes, not on oral hypoglycemic agent because continued to have recurrent hypoglycemia, multiple admissions for decompensated congestive heart failure acute on chronic systolic dysfunction and abdominal distention and history of multiple abdominal paracentesis. PAST SURGICAL HISTORY: Significant for incarcerated hernia, abdominal surgery, history of multiple abdominal paracentesis, history of coronary artery disease, history of stent, history of multiple stents, history of bypass surgery, history of post-CABG and pre-CABG, PTCA, history of mitral valve repair, history of AICD. PREVIOUS CARDIAC WORKUP: As follows, the patient had echocardiography on 04/09/2015, that showed ejection fraction of 20% to 25%, [id number] mitral regurgitation, status post mitral valve repair, [id number] mitral regurgitation, mitral valve area 1.3 cm2, severe tricuspid regurgitation, RV systolic pressure of 51, suggestive of [id number] pulmonary hypertension. ALLERGIES: ALLERGY TO NAPROSYN AND CIPROFLOXACIN. SOCIAL HISTORY: Denies smoking. Denies any history of alcohol abuse. CURRENT MEDICATION: The patient at home is taking Coumadin 3 mg, atorvastatin 20, Lasix, and digoxin. REVIEW OF SYSTEMS: As per HPI. PHYSICAL EXAMINATION: VITAL SIGNS: Temperature afebrile, heart rate 80, blood pressure 120/80. HEENT: PERRLA, intact. NECK: Supple. No carotid bruits or thyromegaly. HEART: S1 and S2, regular. CHEST: Clear to auscultation. ABDOMEN: Soft. EXTREMITIES: Clubbing and cyanosis negative. LABORATORY DATA: Blood workup as follows; WBC of 5, hemoglobin of 12.2, hematocrit of 40.0, platelet count of 183. Chemistry shows sodium of 130, potassium of 4.0, chloride 90, carbon dioxide 34, anion gap of 9, BUN of 22, and creatinine of 0.9. IMPRESSION: Acute decompensated congestive heart failure, acute on chronic systolic dysfunction, cardiomyopathy, history of decreased left ventricular function, mitral regurgitation and tricuspid regurgitation and pulmonary hypertension, atrial fibrillation acute on chronic secondary to systolic dysfunction, ischemic cardiomyopathy, diabetes, INR therapeutic chronic atrial fibrillation, anticoagulation. RECOMMENDATION: Continue Dobutrex. Continue Lasix. We will hold Coumadin today because INR is going up, repeat lab in the morning. Continue digoxin. Continue Lasix. We will follow up with you. Overall, the patient's condition is critical. The patient may need abdominal paracentesis again. We will follow with you. Thank you Dr. Valdez for providing me the opportunity in taking care of the patient, Chasidy Alicia. Tonia Quinteros MD
[2016-12-28] MEDS: Digoxin 250 mcg (0.25 mg) Tab PO SCH (13:30)
[2016-12-28 13:35] VITALS: PULSE 83
--- NOTE | 2016-12-28 17:00 | CP.PCM.PN ---
Subjective - Date & Time of Evaluation Date of Evaluation: 12/28/16 Time of Evaluation: 09:00 - Subjective Subjective: denies chest pain, no shortness of breath, refising paracentesis Objective - Vital Signs/Intake and Output Vital Signs (last 24 hours): Temp Pulse Resp BP Pulse Ox 97.2 F L 76 20 113/79 90 L 12/28/16 06:01 12/28/16 06:01 12/28/16 06:01 12/28/16 13:30 12/28/16 06:01 Intake and Output: 12/28/16 12/28/16 06:59 18:59 Intake Total 281 300 Output Total 200 600 Balance 81 -300 - Medications Medications: Current Medications Digoxin (Lanoxin) 0.25 mg PO 1400 [facility] Last Admin: 12/28/16 13:30 Dose: 0.25 mg Diphenhydramine HCl (Benadryl) 25 mg PO HS PRN PRN Reason: Insomnia Famotidine (Pepcid) 20 mg PO 1000,2200 [facility] Last Admin: 12/28/16 13:30 Dose: 20 mg Furosemide (Lasix) 80 mg PO BID [facility] Last Admin: 12/28/16 13:30 Dose: 80 mg Warfarin Sodium (Coumadin) 3 mg PO 1800 [facility] PRN Reason: Protocol Last Admin: 12/26/16 17:45 Dose: 3 mg - Labs Labs: 12/27/16 06:25 12/28/16 06:15 PT 29.0 SECONDS (9.4-12.5) H 12/28/16 06:15 INR 2.59 (0.93-1.08) H 12/28/16 06:15 APTT 53.2 Seconds (25.1-36.5) H 12/25/16 20:10 - Respiratory Exam Respiratory Exam: Clear to Ausculation Bilateral, NORMAL BREATHING PATTERN - Cardiovascular Exam Cardiovascular Exam: REGULAR RHYTHM - GI/Abdominal Exam GI & Abdominal Exam: Distended, Firm, Normal Bowel Sounds - Extremities Exam Extremities Exam: Pedal Edema - Neurological Exam Neurological Exam: Alert, Awake - Skin Skin Exam: Dry, Warm Assessment and Plan (1) Ascites Status: Chronic (2) CHF (congestive heart failure) Status: Chronic (3) COPD (chronic obstructive pulmonary disease) Status: Chronic (4) Type II diabetes mellitus Status: Chronic - Assessment and Plan (Free Text) Plan: DC IV dobutamine, social work for discharge planning
[2016-12-28 23:14] VITALS: RESP 20
--- NOTE | 2016-12-29 00:26 | PN ---
DATE: 12/28/2016 LOCATION: The patient is in room 378, bed 1. REASON FOR CONSULTATION: Decompensated congestive heart failure, acute on chronic LV systolic failure, ischemic cardiomyopathy, coronary artery disease, and ascites. SUBJECTIVE: The patient this time admitted with complaining of abdominal distention and shortness of breath. The patient denies any palpitations. PHYSICAL EXAMINATION: VITAL SIGNS: Blood pressure 133/89, respirations 16, pulse 79, and temperature 98. HEENT: Head is normocephalic. Eyes; pupils normal. Conjunctivae normal. NECK: JVP low. Carotids equal. THORAX: AP diameter normal. LUNGS: Basal rales. CARDIOVASCULAR: S1 and S2, pansystolic murmur grade 3/6, no rub. ABDOMEN: Protuberant. Ascites present. EXTREMITIES: Bilateral edema in legs. LABORATORY DATA: WBC of 5.0, hemoglobin of 12.1, hematocrit 40.0, and platelets 183. Sodium 137, potassium 4.2, BUN 20, creatinine 0.8, random glucose 121, calcium 8.0, magnesium 1.8. DIAGNOSES: Acute decompensated congestive heart failure, acute on chronic left ventricular systolic dysfunction, cardiomyopathy, status post automatic implantable cardioverter-defibrillator insertion, coronary artery disease status post bypass surgery, status post multiple stents, atrial fibrillation, diabetes, and ascites. PLAN: The patient is on digoxin 0.25 daily, furosemide 80 mg p.o. b.i.d., Pepcid 20 mg b.i.d., and warfarin 3 mg p.o. daily. Prothrombin time 29.0 and INR 2.59, which is therapeutic. We will continue present therapy. We will follow. Tonia Roy MD
[2016-12-29 06:26] LABS: BLOOD UREA NITROGEN 21 mg/dL (7-21); CALCIUM 7.9 mg/dL (8.4-10.5); CARBON DIOXIDE 31 mmol/L (21-33); CHLORIDE 99 mmol/L (98-107); GFR AFRICAN-AMERICAN > 60; GLUCOSE,RANDOM 108 mg/dL (70-110); POTASSIUM 3.9 mmol/L (3.6-5.0); SODIUM 137 mmol/L (132-148)
[2016-12-29 06:30] LABS: INR 1.84 (0.93-1.08)
[2016-12-29 06:31] VITALS: BP 112/78; TEMP 97.5; O2SAT 100
[2016-12-29 10:07] VITALS: PULSE 83
== END 2016-12-29 10:34 | disposition home or self-care (01) | DRG 292 ==
LOC: ED 17:07 → ERH 23:49 → 3RNO 12-26 02:29 → OBSVTOIN 12-26 12:23 → 3RSO 12-26 12:28
PROVIDERS: ADMIT Internal Medicine; ATTEND Internal Medicine
DX: I50.23 Acute on chronic systolic (congestive) heart failure (principal); R18.8 Other ascites; F03.90 Unspecified dementia, unspecified severity, without behavioral disturbance, psychotic disturbance, mood disturbance, and anxiety; I08.1 Rheumatic disorders of both mitral and tricuspid valves; J44.9 Chronic obstructive pulmonary disease, unspecified; I25.5 Ischemic cardiomyopathy; I25.10 Atherosclerotic heart disease of native coronary artery without angina pectoris; I48.0 Paroxysmal atrial fibrillation; E11.9 Type 2 diabetes mellitus without complications; D64.9 Anemia, unspecified; I27.20 Pulmonary hypertension, unspecified; I48.2 Chronic atrial fibrillation; H91.90 Unspecified hearing loss, unspecified ear; I25.2 Old myocardial infarction; Z79.01 Long term (current) use of anticoagulants; Z86.73 Personal history of transient ischemic attack (TIA), and cerebral infarction without residual deficits; Z87.891 Personal history of nicotine dependence; Z90.49 Acquired absence of other specified parts of digestive tract; Z95.1 Presence of aortocoronary bypass graft; Z95.5 Presence of coronary angioplasty implant and graft; Z95.810 Presence of automatic (implantable) cardiac defibrillator; R32 Unspecified urinary incontinence; F41.9 Anxiety disorder, unspecified; F32.89 Other specified depressive episodes; Z87.892 Personal history of anaphylaxis; Z88.6 Allergy status to analgesic agent; Z88.1 Allergy status to other antibiotic agents; Z91.048 Other nonmedicinal substance allergy status; R40.2412 Glasgow coma scale score 13-15, at arrival to emergency department

== ENCOUNTER 2016-12-30 03:44 | Observation (INO) | payer MEDICARE, OTHER ==
[2016-12-30 03:44] VITALS: BMI 24.0
--- NOTE | 2016-12-30 04:36 | ED PDOC ---
Arrival/HPI - General Chief Complaint: Abdominal Pain Time Seen by Provider: 12/30/16 04:20 Historian: Patient - History of Present Illness Narrative History of Present Illness (Text): 12/30/16 04:36 71 year old female, whose past medical history includes CHF, intractable ascites due to ischemic cardiomyopathy, CAD s/p CABG with implanted defibrillator device, COPD, Type 2 diabetes, anemia, and paroxysmal atrial fibrillation, was discharged yesterday after admission for shortness of breath and abdominal pain. Patient returns to the emergency department with similar symptoms. Patient reports abdominal pain, but denies any fever, chills, chest pain, shortness of breath, nausea, vomiting, diarrhea, urinary symptoms, back pain, neck pain, headache, dizziness, or any other complaints. PMD: Dr. Valdez. Time/Duration: Other (yesterday) Symptom Course: Unchanged Activities at Onset: Light Context: Home Past Medical History - Provider Review Nursing Documentation Reviewed: Yes - Infectious Disease Hx of Infectious Diseases: None - Tetanus Immunization Tetanus Immunization: Unknown - Reproductive Menopause: Yes - Cardiac Hx Cardiac Disorders: Yes Hx Congestive Heart Failure: Yes Hx Hypertension: Yes - Pulmonary Hx Chronic Obstructive Pulmonary Disease (COPD): Yes - Neurological Hx Neurological Disorder: Yes Hx Dementia: Yes Hx Transient Ischemic Attacks (TIA): Yes - HEENT Hx HEENT Disorder: Yes Hx Deafness: Yes ([place]) - Renal Hx Renal Disorder: No - Endocrine/Metabolic Hx Diabetes Mellitus Type 2: Yes - Hematological/Oncological Hx Blood Disorders: Yes Hx Anemia: Yes Hx Cancer: Yes (breast ca) - Integumentary Hx Dermatological Disorder: Yes Other/Comment: MOTTLED LEGS AND ARMS. - Musculoskeletal/Rheumatological Hx Arthritis: Yes - Gastrointestinal Hx Gastrointestinal Disorders: Yes (ascites) Hx Diverticulitis: Yes Hx Gall Bladder Disease: Yes (cholecystectomy) Hx Gastroesophageal Reflux: Yes - Genitourinary/Gynecological Hx Genitourinary Disorders: Yes Hx Incontinence: Yes - Psychiatric Hx Psychophysiologic Disorder: Yes Hx Anxiety: Yes Hx Depression: Yes Hx Substance Use: No - Surgical History Hx Appendectomy: Yes Hx Cardiac Catheterization: Yes Hx Cholecystectomy: Yes Hx Coronary Stent: Yes Hx Mastectomy: Yes Hx Open Heart Surgery: Yes Hx Orthopedic Surgery: Yes (laminectomy) Other/Comment: Herniated disc repair, tonsilectomy - Anesthesia Hx Anesthesia: No - Suicidal Assessment Feels Threatened In Home Enviroment: No Family/Social History - Physician Review Nursing Documentation Reviewed: Yes Family/Social History: No Known Family HX Smoking Status: Light Smoker < 10 Cigarettes Daily Hx Alcohol Use: No Hx Substance Use: No Hx Substance Use Treatment: No Allergies/Home Meds Allergies/Adverse Reactions: Allergies adhesive tape Allergy (Verified 12/30/16 03:56) REDNESS naproxen Allergy (Verified 12/30/16 03:56) VOMITING ciprofloxacin Adverse Reaction (Verified 12/30/16 03:56) ANAPHYLAXIS Home Medications: Home Meds Medication Instructions Recorded Confirmed No Known Home Med 12/25/16 12/25/16 Review of Systems - Physician Review All systems were reviewed & negative as marked: Yes - Review of Systems Constitutional: absent: Fevers, Other (Chills) Respiratory: SOB Cardiovascular: Edema, HUFF. absent: Chest Pain Gastrointestinal: Abdominal Pain. absent: Diarrhea, Nausea, Vomiting Genitourinary Female: absent: Dysuria, Frequency, Hematuria Musculoskeletal: absent: Back Pain, Neck Pain Neurological: absent: Headache, Dizziness Physical Exam Vital Signs Reviewed: Yes Vital Signs Temp Pulse Resp BP Pulse Ox 12/30/16 05:09 116/74 12/30/16 03:53 97.8 F 83 18 121/67 100 Temperature: Afebrile Blood Pressure: Normal Pulse: Regular Respiratory Rate: Normal Appearance: Positive for: Well-Appearing, Non-Toxic, Comfortable Pain Distress: None Mental Status: Positive for: Alert and Oriented X 3 - Systems Exam Head: Present: Atraumatic, Normocephalic Pupils: Present: PERRL Conjunctiva: Present: Normal Mouth: Present: Moist Mucous Membranes Pharnyx: Present: Normal. No: ERYTHEMA, EXUDATE Neck: Present: Normal Range of Motion Respiratory/Chest: Present: Decreased Breath Sounds, Rales (Crackles on the right base), Tachypneic. No: Accessory Muscle Use Cardiovascular: Present: Regular Rate and Rhythm, Normal S1, S2 Abdomen: Present: Normal Bowel Sounds. No: Tenderness, Distention, Peritoneal Signs Back: Present: Normal Inspection Upper Extremity: Present: Normal Inspection. No: Cyanosis, Edema Lower Extremity: Present: Edema (1+ edema bilaterally ) Neurological: Present: GCS=15, CN II-XII Intact, Speech Normal Skin: Present: Warm, Dry, Normal Color. No: Rashes Psychiatric: Present: Alert, Oriented x 3, Normal Insight, Normal Concentration Medical Decision Making ED Course and Treatment: 12/30/16 04:36 Impression: 71 year old female presents complaining of abdominal pain. Patient was discharged yesterday for similar symptoms. Plan: -- EKG -- Labs -- Chest X-ray -- Urinalysis -- Reassess and disposition Prior Visits: Notes and results from previous visits were reviewed. Patient was last seen in the emergency department on 12/25/16 presents complaining of abdominal distention and mild nausea for the past 3 days. Patient was admitted. Progress Notes: 12/30/16 05:17 EKG shows Pacemaker at 63 BPM with LBBB pattern. Interpreted by me. 12/30/16 06:53 Patient with noted history with increasing abdominal girth with abdominal pain. BNP is nearly 5K - will give lasix and place on further observation with plan for paracentesis. Patient is Dr. Valdez's who said he is away and to place his patient's on the hospitalist's service - discussed with Dr. Campos for hospitalist service. - Lab Interpretations Lab Results: 12/30/16 05:00 12/30/16 05:00 Lab Results 12/30/16 05:00: Phosphorus 3.2, Magnesium 2.0 12/30/16 05:00: Digoxin 1.1 12/30/16 05:00: Sodium 138, Potassium 4.1, Chloride 97 L, Carbon Dioxide 37 H, Anion Gap 9 L, BUN 22 H, Creatinine 0.8, Est GFR ( Amer) > 60, Est GFR ( Non-Af Amer) > 60, Random Glucose 158 H, Calcium 8.6, Magnesium 1.9, Total Bilirubin 0.8, AST 30, ALT 21, Alkaline Phosphatase 164 H, Lactate Dehydrogenase 635, Total Creatine Kinase 58, Troponin I 0.03 D, NT-Pro-B Natriuret Pep 4670 H, Total Protein 7.5, Albumin 3.4, Globulin 4.2, Albumin/ Globulin Ratio 0.8 L, Lipase 40 12/30/16 05:00: PT 18.8 H, INR 1.69 H, APTT 40.7 H 12/30/16 05:00: WBC 4.2 L, RBC 4.91, Hgb 12.9, Hct 42.1, MCV 85.7, MCH 26.3, MCHC 30.6 L, RDW 16.3 H, Plt Count 170, MPV 10.3, Gran % 79.3 H, Lymph % (Auto) 12.2 L, [place] % (Auto) 6.9 H, Eos % (Auto) 1.4 L, Baso % (Auto) 0.2, Gran # 3.32 , Lymph # 0.5 L, [place] # 0.3, Eos # 0.1, Baso # 0.01 I have reviewed the lab results: Yes - RAD Interpretation Radiology Orders: 12/30/16 04:37 CHEST PORTABLE [RAD] Stat - EKG Interpretation Interpreted by ED Physician: Yes Type: 12 lead EKG - Medication Orders Current Medication Orders: Digoxin (Lanoxin) 0.25 mg PO 1400 [facility] Diphenhydramine HCl (Benadryl) 25 mg PO HS PRN PRN Reason: Insomnia Famotidine (Pepcid) 20 mg PO 1000,2200 [facility] Furosemide (Lasix) 80 mg PO BID [facility] Insulin Human Lispro (Humalog Low) 0 units SC ACHS [facility] PRN Reason: Protocol Discontinued Medications Furosemide (Lasix) 20 mg IVP STAT STA Stop: 12/30/16 05:03 Last Admin: 12/30/16 05:09 Dose: 20 mg MAR Blood Pressure Document 12/30/16 05:09 MT (Rec: 12/30/16 05:09 MT [id number]) Blood Pressure Blood Pressure (100/60-150/90) 116/74 IVP Administration Document 12/30/16 05:09 MT (Rec: 12/30/16 05:09 MT [id number]) Charges for Administration # of IVP Administrations 1 - Scribe Statement The provider has reviewed the documentation as recorded by the Javier Sr Provider Scribe Attestation: All medical record entries made by the Javier were at my direction and personally dictated by me. I have reviewed the chart and agree that the record accurately reflects my personal performance of the history, physical exam, medical decision making, and the department course for this patient. I have also personally directed, reviewed, and agree with the discharge instructions and disposition. Disposition/Present on Arrival - Present on Arrival Any Indicators Present on Arrival: No History of DVT/PE: No History of Uncontrolled Diabetes: No Urinary Catheter: No History of Decub. Ulcer: No History Surgical Site Infection Following: None - Disposition Have Diagnosis and Disposition been Completed?: Yes Diagnosis: CHF (congestive heart failure), Ascites, Abdominal pain Disposition: HOSPITALIZED Disposition Time: 05:50 Patient Plan: Observation, Telemetry Condition: FAIR
[2016-12-30 05:22] LABS: BASO # 0.01 K/mm3 (0.0-2.0); BASO % 0.2 % (0.0-3.0); EOS # 0.1 (0.0-0.7); EOS % 1.4 % (1.5-5.0); GRAN # 3.32 (1.4-6.5); GRAN % 79.3 % (50.0-68.0); HEMATOCRIT 42.1 % (36.0-48.0); LYMPH # 0.5 (1.2-3.4); LYMPH % 12.2 % (22.0-35.0); MEAN CELL VOLUME 85.7 fl (80.0-105.0); MEAN CORPUSCULAR HEMOGLOBIN 26.3 pg (25.0-35.0); MEAN CORPUSCULAR HGB CONC 30.6 g/dl (31.0-37.0); MEAN PLATELET VOLUME 10.3 fl (7.0-11.0); MONO # 0.3 (0.1-0.6); MONO % 6.9 % (1.0-6.0); RED CELL DISTRIBUTION WIDTH 16.3 % (11.5-14.5); WHITE BLOOD COUNT 4.2 10^3/ul (4.5-11.0)
[2016-12-30 05:37] LABS: TROPONIN I 0.03 ng/mL
[2016-12-30 05:40] LABS: ALB/GLOB RATIO 0.8 (1.1-1.8); ALKALINE PHOSPHATASE 164 U/L (38-126); ALT/SGPT 21 U/L (7-56); AST/SGOT 30 U/L (14-36); BILIRUBIN,TOTAL 0.8 mg/dL (0.2-1.3); BLOOD UREA NITROGEN 22 mg/dL (7-21); CALCIUM 8.6 mg/dL (8.4-10.5); CARBON DIOXIDE 37 mmol/L (21-33); CHLORIDE 97 mmol/L (98-107); GFR AFRICAN-AMERICAN > 60; GLUCOSE,RANDOM 158 mg/dL (70-110); LIPASE 40 U/L (23-300); MAGNESIUM 1.9 mg/dL (1.7-2.2); POTASSIUM 4.1 mmol/L (3.6-5.0); SODIUM 138 mmol/L (132-148); TOTAL PROTEIN 7.5 g/dL (5.8-8.3)
[2016-12-30 05:48] LABS: INR 1.69 (0.93-1.08)
[2016-12-30 05:49] LABS: PARTIAL THROMBOPLASTIN TIME 40.7 Seconds (25.1-36.5)
[2016-12-30] MEDS ORDERED: Potassium Chloride 20 mEq ER Tab PO STA (06:09)
[2016-12-30 06:17] LABS: PHOSPHOROUS 3.2 mg/dL (2.5-4.5)
--- NOTE | 2016-12-30 06:26 | CP.PCM.HP ---
<Toby Gomez - Last Filed: 12/30/16 07:09> History of Present Illness - History of Present Illness History of Present Illness: Ms. Alicia is a 71yo F PMH ischemic CM w/ pacemaker, CHF/ascites, COPD, DM2, paroxysmal AFib on Coumadin presenting with abdominal pain and SOB 2/2 distended abdomen due to ascites. pt was recently discharged from [facility] and was supposed to have paracentesis done but it was not. she denies chest pain, weakness, headaches, changes in vision/hearing, fevers/chills, dysuria or bowel habit changes. ROS was limited due to pt being a poor historian, but is otherwise unremarkable. In ED, INR was noted to be subtherapeutic. CXR unremarkable. PMD: Garcia Valdez [employer]: [place] PMH: as above PSH: CABG, pacemaker, MVR, appendectomy, cholecystectomy, laminectomy Meds: coumadin, digoxin, lasix allergies: naproxen, cipro, adhesive tape SHx: denies ETOH or substance abuse; +tobacco use; lives with grandson; uses cane for assistance Pharmacy: [facility] Present on Admission - Present on Admission Any Indicators Present on Admission: No History of DVT/PE: No History of Uncontrolled Diabetes: No Urinary Catheter: No Decubitus Ulcer Present: No Review of Systems - Review of Systems All systems: reviewed and no additional remarkable complaints except (as per HPI ) Past Patient History - Infectious Disease Hx of Infectious Diseases: None - Tetanus Immunizations Tetanus Immunization: Unknown - Past Social History Smoking Status: Light Smoker < 10 Cigarettes Daily Alcohol: None Drugs: Denies Home Situation {Lives}: With Family - CARDIAC Hx Cardiac Disorders: Yes Hx Congestive Heart Failure: Yes Hx Hypertension: Yes - PULMONARY Hx Chronic Obstructive Pulmonary Disease (COPD): Yes - NEUROLOGICAL Hx Neurological Disorder: Yes Hx Dementia: Yes Hx Transient Ischemic Attacks (TIA): Yes - HEENT Hx HEENT Problems: Yes Hx Deafness: Yes ([place]) - RENAL Hx Chronic Kidney Disease: No - ENDOCRINE/METABOLIC Hx Diabetes Mellitus Type 2: Yes - HEMATOLOGICAL/ONCOLOGICAL Hx Blood Disorders: Yes Hx Anemia: Yes Hx Cancer: Yes (breast ca) - INTEGUMENTARY Hx Dermatological Problems: Yes Other/Comment: MOTTLED LEGS AND ARMS. - MUSCULOSKELETAL/RHEUMATOLOGICAL Hx Arthritis: Yes - GASTROINTESTINAL Hx Gastrointestinal Disorders: Yes (ascites) Hx Diverticulitis: Yes Hx Gall Bladder Disease: Yes (cholecystectomy) Hx Gastroesophageal Reflux: Yes - GENITOURINARY/GYNECOLOGICAL Hx Genitourinary Disorders: Yes Hx Incontinence: Yes - PSYCHIATRIC Hx Psychophysiologic Disorder: Yes Hx Anxiety: Yes Hx Depression: Yes Hx Substance Use: No - SURGICAL HISTORY Hx Appendectomy: Yes Hx Cardiac Catheterization: Yes Hx Cholecystectomy: Yes Hx Coronary Stent: Yes Hx Mastectomy: Yes Hx Open Heart Surgery: Yes Hx Orthopedic Surgery: Yes (laminectomy) Other/Comment: Herniated disc repair, tonsilectomy - ANESTHESIA Hx Anesthesia: No Meds Allergies/Adverse Reactions: Allergies Allergy/AdvReac Type Severity Reaction Status Date / Time adhesive tape Allergy REDNESS Verified 12/30/16 03:56 naproxen Allergy VOMITING Verified 12/30/16 03:56 ciprofloxacin AdvReac ANAPHYLAXIS Verified 12/30/16 03:56 Physical Exam - Constitutional Appears: Non-toxic, No Acute Distress, Unkempt - Head Exam Head Exam: ATRAUMATIC, NORMAL INSPECTION, NORMOCEPHALIC - Eye Exam Eye Exam: EOMI, Normal appearance, PERRL Pupil Exam: NORMAL ACCOMODATION - ENT Exam ENT Exam: Mucous Membranes Moist, Normal Exam - Neck Exam Neck exam: Positive for: Normal Inspection - Respiratory Exam Respiratory Exam: Clear to Auscultation Bilateral, NORMAL BREATHING PATTERN. absent: Rales, Rhonchi, Wheezes - Cardiovascular Exam Cardiovascular Exam: RRR, +S1, +S2. absent: Gallop, JVD, Rubs - GI/Abdominal Exam GI & Abdominal Exam: Distended, Normal Bowel Sounds, Soft. absent: Tenderness Additional comments: +fluid wave - Extremities Exam Extremities exam: Positive for: normal inspection, pedal edema (1+) - Back Exam Back exam: NORMAL INSPECTION - Neurological Exam Neurological exam: Alert - Psychiatric Exam Psychiatric exam: Normal Affect, Normal Mood - Skin Skin Exam: Normal Color, Warm Results - Vital Signs Recent Vital Signs: Last Vital Signs Temp 97.8 F 12/30/16 03:53 Pulse 83 12/30/16 03:53 Resp 18 12/30/16 03:53 BP 116/74 12/30/16 05:09 Pulse Ox 100 12/30/16 03:53 - Labs Result Diagrams: 12/30/16 05:00 12/30/16 05:00 Assessment & Plan - Assessment and Plan (Free Text) Assessment: 71yo F PMH ischemic CM, ascites/CHF, COPD, DM2, paroxysmal AFib who presents with abdominal pain, distention and shortness of breath x2 days due to ascites 2 /2 CHF 2/2 ischemic CM Plan: 1. abdominal pain 2/2 ascites 2/2 CHF - Lasix 20mg IV - cont Lasix 80mg PO BID - strict I/O - daily weight check - IR consulted for paracentesis - PT/OT eval 2. Paroxysmal AFib - holding coumadin right now due to paracentesis - INR is subtherapeutic so restart Coumadin if no procedures scheduled - daily INR checks - cont Digoxin home dose 3. Hx DM2 - ISS - Accuchecks ACHS 4. Hx COPD - currently asymptomatic - start Duonebs if needed 5. Hx insomnia - Benadryl Pepcid/SCDs holding coumadin now HHD Patient was seen, examined and discussed with attending, Dr. Beth Gomez PGY1 - Date & Time Date: 12/30/16 Time: 07:08 <Victor Manuel Campos MD - Last Filed: 01/01/17 08:40> Results - Vital Signs Recent Vital Signs: Last Vital Signs Temp 98.0 F 01/01/17 06:00 Pulse 82 01/01/17 06:00 Resp 20 01/01/17 06:00 BP 101/65 01/01/17 06:00 Pulse Ox 95 01/01/17 06:00 - Labs Result Diagrams: 01/01/17 06:30 01/01/17 06:30 Labs: Laboratory Results - last 24 hr 01/01/17 01/01/17 01/01/17 06:30 06:30 06:30 WBC 4.2 L RBC 4.85 Hgb 12.4 Hct 41.3 MCV 85.2 MCH 25.6 MCHC 30.0 L RDW 16.1 H Plt Count 167 MPV 10.2 Gran % 71.1 H Lymph % (Auto) 20.3 L [place] % (Auto) 7.7 H Eos % (Auto) 0.7 L Baso % (Auto) 0.2 Gran # 2.97 Lymph # 0.9 L [place] # 0.3 Eos # 0.0 Baso # 0.01 PT 14.5 H INR 1.31 H Sodium 137 Potassium 3.8 Chloride 97 L Carbon Dioxide 33 Anion Gap 10 BUN 27 H Creatinine 0.9 Est GFR ( Amer) > 60 Est GFR (Non-Af Amer) > 60 Random Glucose 150 H Calcium 8.0 L Total Bilirubin 0.6 AST 34 ALT 20 Alkaline Phosphatase 176 H D Total Protein 6.6 Albumin 3.0 Globulin 3.6 Albumin/Globulin Ratio 0.8 L Attending/Attestation - Attestation I have personally seen and examined this patient.: Yes I have fully participated in the care of the patient.: Yes I have reviewed all pertinent clinical information: Yes Notes (Text): -I agree with the above H&P completed by the resident physician.
[2016-12-30 06:32] LABS: PH,URINE 6.5 (4.7-8.0); URINE BILIRUBIN NEGATIVE (NEGATIVE); URINE BLOOD NEGATIVE (NEGATIVE); URINE GLUCOSE (UA) NEGATIVE (NEGATIVE); URINE KETONE NEGATIVE (NEGATIVE); URINE LEUKOCYTE ESTERASE NEGATIVE Leu/uL (NEGATIVE); URINE PROTEIN NEGATIVE mg/dL (<30 mg/dL); URINE UROBILINOGEN 0.2 E.U./dL (<1 E.U./dL)
[2016-12-30 07:05] LABS: URINE APPEARANCE CLEAR (CLEAR); URINE COLOR YELLOW (YELLOW)
[2016-12-30] MEDS: Insulin Lispro (humaLOG) LOW Coverage SC SCH ×4 (07:56→21:41)
--- NOTE | 2016-12-30 09:03 | RAD ---
HISTORY: sob COMPARISON: 12/09/2016 FINDINGS: LUNGS: No active pulmonary disease. PLEURA: No significant pleural effusion identified, no pneumothorax apparent. CARDIOVASCULAR: Moderate cardiomegaly. Dual lead pacemaker sternal wires OSSEOUS STRUCTURES: No significant abnormalities. VISUALIZED UPPER ABDOMEN: Normal. OTHER FINDINGS: None. IMPRESSION: No active disease.
[2016-12-30] MEDS: Digoxin 250 mcg (0.25 mg) Tab PO SCH (14:39)
--- NOTE | 2016-12-30 15:28 | US ---
PROCEDURE: Ultrasound guided paracentesis. HISTORY: Cardiogenic cirrhosis. Recurrent ascites with abdominal pain and distension. Needs paracentesis. PHYSICIAN(S): Yaw Leonard MD. TECHNIQUE: The relative risks and indications for the procedure were explained to the patient and informed written consent obtained. Sonography of the abdomen was performed in a supine position. This revealed a small to moderate amount of non-loculated ascites, greatest in the right lower quadrant. A puncture site was selected and the area was prepped and draped in the usual sterile fashion. 1% Xylocaine was used to anesthetize the skin and soft tissues. A 7 Sami paracentesis catheter was trocared into the right lower quadrantand 4200 cc of clear straw-colored fluid aspirated. No labs were sent. IMPRESSION: Ultrasound-guided paracentesis in the right lower quadrant. 4200 cc of clear fluid were aspirated
--- NOTE | 2016-12-30 23:07 | CON ---
DATE: 12/30/2016 REASON FOR CONSULTATION: Ascites and abdominal pain. HISTORY OF PRESENT ILLNESS: This is a 71-year-old patient with a past medical history of congestive heart failure, ascites, COPD, diabetes mellitus, history of paroxysmal atrial fibrillation, on Coumadin admitted with increased abdominal distention and discomfort. The patient has a history of ascites, has had multiple paracentesis done in the past. The patient was seen by our service in 01/2016 for ascites. Her previous records are reviewed. In 10/2015, she got the paracentesis done and the ascitic fluid and albumin ration was 1.6, more suggestive of portal hypertension. The patient did have upper GI endoscopy done in 2012, was found to have esophagitis and hiatus hernia. The patient is not sure about the endoscopy and coloscopy evaluation details. PAST MEDICAL HISTORY: Significant as above. History of diabetes mellitus, TIA, COPD, diverticulosis, depression, dyslipidemia, coronary artery disease, stent placement, history of mitral valve replacement, AICD. Last EGD was in 2015. ALLERGIES: ALLERGIES TO TAPE, NAPROXEN, AND ALSO CIPROFLOXACIN. FAMILY HISTORY: Noncontributory. REVIEW OF SYSTEMS: Positive as above. Other systems reviewed and negative. PHYSICAL EXAMINATION: GENERAL: The patient is lying on the bed, not in acute distress. VITAL SIGNS: Afebrile. Temperature is 97.5, blood pressure is 100/65, respirations 20. HEENT: Atraumatic. Anicteric. NECK: Supple. HEART: S1 and S2 heard. There is a systolic murmur present. LUNGS: Bilateral air entry present. Few basal crepitation present. ABDOMEN: Distended. Ascites, status post paracentesis, much less pronounced now. EXTREMITIES: Mild edema present. LABORATORY DATA: Hemoglobin is 12.9, WBC is 4.2, platelets 170. Chemistries: Chloride 97, CO2 of 37, BUN 22, creatinine 0.8. Alkaline phosphatase is 164. IMPRESSION: This 71-year-old patient with recurrent ascites; history of congestive heart failure; cardiomyopathy, status post automatic implantable cardioverter-defibrillator, status post coronary artery bypass graft, now has ascites. Also, her comorbidities include diabetes mellitus and . The paracentesis done in the past suggest the SAAG ratio was greater than 1.6 suggestive of portal hypertension. However, the other differential diagnosis include is neoplasia, atrophy also considered. Last paracentesis cytology was negative. RECOMMENDATIONS: 1. Pelvic sonogram. 2. Doppler to evaluate the portal vein. 3. The patient cannot have an MRCP done. The CT also showed 5 mm cystic lesion in the pancreas. The reasonable thing is to evaluate by endoscopic ultrasound. As the patient has a defibrillator, MRI cannot be done. The EUS can be done electively as an outpatient. However, the patient has coagulopathy with an INR of 2.59. Thank you very much for allowing us to participate in the care of the patient. Zach Camacho MD
--- NOTE | 2016-12-31 05:07 | CP.PCM.PN ---
<Babak Dowling - Last Filed: 12/31/16 17:03> Subjective - Date & Time of Evaluation Date of Evaluation: 12/31/16 Time of Evaluation: 08:30 - Subjective Subjective: Subjective: Patient seen and examined at bedside. Resting comfortably in bed. No acute overnight events. Patient states abdominal pain is at its baseline. Offers no new complaints at this time. Denies fever, chills, chest pain, shortness of breath, nausea, vomiting, diarrhea, constipation, and urinary symptoms. 12-point review of systems negative except as indicated in the HPI Physical Examination: - Head Exam Head Exam: ATRAUMATIC, NORMAL INSPECTION, NORMOCEPHALIC - Additional Findings Additional findings: - Constitutional Appears: Non-toxic, No Acute Distress, Unkempt - Head Exam Head Exam: ATRAUMATIC, NORMAL INSPECTION, NORMOCEPHALIC - Eye Exam Eye Exam: EOMI, Normal appearance, PERRL Pupil Exam: NORMAL ACCOMODATION - ENT Exam ENT Exam: Mucous Membranes Moist, Normal Exam - Neck Exam Neck exam: Positive for: Normal Inspection - Respiratory Exam Respiratory Exam: Clear to Auscultation Bilateral, NORMAL BREATHING PATTERN. absent: Rales, Rhonchi, Wheezes - Cardiovascular Exam Cardiovascular Exam: RRR, +S1, +S2. absent: Gallop, JVD, Rubs - GI/Abdominal Exam GI & Abdominal Exam: Distended, Normal Bowel Sounds, Soft. absent: Tenderness - Extremities Exam Extremities exam: Positive for: normal inspection, pedal edema (1+) - Back Exam Back exam: NORMAL INSPECTION - Neurological Exam Neurological exam: Patient is awake, alert, responds to verbal stimuli, answers questions appropriately, follows commands, and moves extremities past midline - Psychiatric Exam Psychiatric exam: Normal Affect, Normal Mood - Skin Skin Exam: Normal Color, Warm Asssessment and Plan: Patient is a 71 year old female with a past medical history of ischemic CM, ascites/CHF, COPD, DM2, paroxysmal AFib who was admitted for abdominal pain, distention and shortness of breath. Abdominal pain - 2/2 ascites 2/2 CHF s/p paracentesis with 4200 cc of clear fluid - Lasix changed to 80mg PO daily - abdominal ultrasounds pending official read - strict I/O - daily weight check Paroxysmal AFib - can restart warfarin if abdominal ultrasounds come back negative - daily INR checks - cont Digoxin home dose Hx DM2 - ISS - Accuchecks ACHS Hx COPD - currently asymptomatic - Duonebs prn Prophylaxis - Pepcid - SCDs Patient seen, case discussed with, and plan approved by attending physician, Dr. Madrid. Objective - Vital Signs/Intake and Output Vital Signs (last 24 hours): Temp Pulse Resp BP Pulse Ox 97.7 F 80 19 120/75 96 12/31/16 00:01 12/31/16 02:00 12/31/16 00:01 12/31/16 00:01 12/31/16 00:01 - Medications Medications: Current Medications Digoxin (Lanoxin) 0.25 mg PO 1400 [facility] Last Admin: 12/30/16 14:39 Dose: 0.25 mg Diphenhydramine HCl (Benadryl) 25 mg PO HS PRN PRN Reason: Insomnia Famotidine (Pepcid) 20 mg PO 1000,2200 [facility] Last Admin: 12/30/16 21:46 Dose: 20 mg Furosemide (Lasix) 80 mg PO BID [facility] Last Admin: 12/30/16 18:56 Dose: 80 mg Insulin Human Lispro (Humalog Low) 0 units SC ACHS [facility] PRN Reason: Protocol Last Admin: 12/30/16 21:41 Dose: Not Given - Labs Labs: PT 18.8 SECONDS (9.4-12.5) H 12/30/16 05:00 INR 1.69 (0.93-1.08) H 12/30/16 05:00 APTT 40.7 Seconds (25.1-36.5) H 12/30/16 05:00 <Yoselin Madrid - Last Filed: 12/31/16 17:25> Objective - Vital Signs/Intake and Output Vital Signs (last 24 hours): Temp Pulse Resp BP Pulse Ox 98.6 F 83 19 95/69 L 97 12/31/16 06:00 12/31/16 06:00 12/31/16 06:00 12/31/16 10:39 12/31/16 06:00 Intake and Output: 12/31/16 12/31/16 06:59 18:59 Intake Total 720 Balance 720 - Medications Medications: Current Medications Digoxin (Lanoxin) 0.25 mg PO 1400 [facility] Last Admin: 12/31/16 14:09 Dose: 0.25 mg Diphenhydramine HCl (Benadryl) 25 mg PO HS PRN PRN Reason: Insomnia Famotidine (Pepcid) 20 mg PO 1000,2200 [facility] Last Admin: 12/31/16 10:39 Dose: 20 mg Furosemide (Lasix) 80 mg PO DAILY [facility] Insulin Human Lispro (Humalog Low) 0 units SC ACHS [facility] PRN Reason: Protocol Last Admin: 12/31/16 12:38 Dose: 3 units - Labs Labs: 12/31/16 07:00 12/31/16 07:00 PT 17.0 SECONDS (9.4-12.5) H 12/31/16 07:00 INR 1.53 (0.93-1.08) H 12/31/16 07:00 APTT 40.7 Seconds (25.1-36.5) H 12/30/16 05:00 Attending/Attestation - Attestation I have personally seen and examined this patient.: Yes I have fully participated in the care of the patient.: Yes I have reviewed all pertinent clinical information, including history, physical exam and plan: Yes Notes (Text): 12/31/16 17:19 71 year old female with past medical history of systolic CHF, recurrent ascites , diabetes and paroxysmal afib who presented with abdominal pain and ascites. She was recently discharged earlier this week and at that time refused paracentesis. She is now s/p 4.2 liters removal of fluid via paracentesis. Symptoms have improved. GI evaluation was appreciated who recommended US abdomen which showed mild fatty infiltrate of the liver, US pelvis which was negative for masses, and elective EUS/abdominal duplex. Will resume her coumadin today. Lasix dose with be reduced today to once daily as well. D/c planning home, however, grandanthony is currently out of state and will be here tomorrow for pickup per staff. Yoselin Madrid MD Hospitalist.
[2016-12-31 07:40] LABS: BASO # 0.01 K/mm3 (0.0-2.0); BASO % 0.2 % (0.0-3.0); EOS % 0.8 % (1.5-5.0); GRAN # 3.57 (1.4-6.5); GRAN % 73.2 % (50.0-68.0); HEMATOCRIT 40.3 % (36.0-48.0); LYMPH # 0.9 (1.2-3.4); LYMPH % 17.8 % (22.0-35.0); MEAN CORPUSCULAR HEMOGLOBIN 25.7 pg (25.0-35.0); MEAN CORPUSCULAR HGB CONC 30.3 g/dl (31.0-37.0); MONO # 0.4 (0.1-0.6); RED CELL DISTRIBUTION WIDTH 16.2 % (11.5-14.5); WHITE BLOOD COUNT 4.9 10^3/ul (4.5-11.0)
[2016-12-31 07:41] LABS: INR 1.53 (0.93-1.08)
[2016-12-31] MEDS: Insulin Lispro (humaLOG) LOW Coverage SC SCH ×4 (07:50→21:59)
[2016-12-31 08:31] LABS: ALB/GLOB RATIO 0.8 (1.1-1.8); ALKALINE PHOSPHATASE 138 U/L (38-126); ALT/SGPT 31 U/L (7-56); AST/SGOT 26 U/L (14-36); BLOOD UREA NITROGEN 23 mg/dL (7-21); CALCIUM 7.8 mg/dL (8.4-10.5); CARBON DIOXIDE 34 mmol/L (21-33); CHLORIDE 96 mmol/L (98-107); GFR AFRICAN-AMERICAN > 60; GLUCOSE,RANDOM 108 mg/dL (70-110); POTASSIUM 3.8 mmol/L (3.6-5.0); SODIUM 135 mmol/L (132-148); TOTAL PROTEIN 6.6 g/dL (5.8-8.3)
--- NOTE | 2016-12-31 09:40 | CARD ---
APPROVED REPORT EKG Measurement Heart [id number] <Conclusion> Electronic ventricular pacemaker: V paced with one PVC
[2016-12-31] MEDS: Digoxin 250 mcg (0.25 mg) Tab PO SCH (14:09)
[2016-12-31 14:12] VITALS: PULSE 80
--- NOTE | 2016-12-31 14:14 | CP.PCM.DIS ---
Provider - Provider Date of Admission: 12/30/16 05:50 Attending physician: Yoselin Madrid MD Primary care physician: Garcia Valdez JD, MD Time Spent in preparation of Discharge (in minutes): 45 Diagnosis - Discharge Diagnosis (1) Ascites Status: Chronic Priority: Medium (2) CHF (congestive heart failure) Status: Chronic Priority: Medium (3) CHF (congestive heart failure) Status: Chronic Priority: Medium (4) COPD (chronic obstructive pulmonary disease) Status: Chronic Priority: Medium (5) Type II diabetes mellitus Status: Chronic Priority: Medium Hospital Course - Lab Results Lab Results: Most Recent Lab Values WBC 4.9 10^3/ul (4.5-11.0) 12/31/16 07:00 RBC 4.74 10^6/uL (3.5-6.1) 12/31/16 07:00 Hgb 12.2 g/dL (12.0-16.0) 12/31/16 07:00 Hct 40.3 % (36.0-48.0) 12/31/16 07:00 MCV 85.0 fl (80.0-105.0) 12/31/16 07:00 MCH 25.7 pg (25.0-35.0) 12/31/16 07:00 MCHC 30.3 g/dl (31.0-37.0) L 12/31/16 07:00 RDW 16.2 % (11.5-14.5) H 12/31/16 07:00 Plt Count 182 10^3/uL (120.0-450.0) 12/31/16 07:00 MPV 10.0 fl (7.0-11.0) 12/31/16 07:00 Gran % 73.2 % (50.0-68.0) H 12/31/16 07:00 Lymph % (Auto) 17.8 % (22.0-35.0) L 12/31/16 07:00 [place] % (Auto) 8.0 % (1.0-6.0) H 12/31/16 07:00 Eos % (Auto) 0.8 % (1.5-5.0) L 12/31/16 07:00 Baso % (Auto) 0.2 % (0.0-3.0) 12/31/16 07:00 Gran # 3.57 (1.4-6.5) 12/31/16 07:00 Lymph # 0.9 (1.2-3.4) L 12/31/16 07:00 [place] # 0.4 (0.1-0.6) 12/31/16 07:00 Eos # 0.0 (0.0-0.7) 12/31/16 07:00 Baso # 0.01 K/mm3 (0.0-2.0) 12/31/16 07:00 PT 17.0 SECONDS (9.4-12.5) H 12/31/16 07:00 INR 1.53 (0.93-1.08) H 12/31/16 07:00 APTT 40.7 Seconds (25.1-36.5) H 12/30/16 05:00 Sodium 135 mmol/L (132-148) 12/31/16 07:00 Potassium 3.8 mmol/L (3.6-5.0) 12/31/16 07:00 Chloride 96 mmol/L (98-107) L 12/31/16 07:00 Carbon Dioxide 34 mmol/L (21-33) H 12/31/16 07:00 Anion Gap 9 (10-20) L 12/31/16 07:00 BUN 23 mg/dL (7-21) H 12/31/16 07:00 Creatinine 0.9 mg/dl (0.7-1.2) 12/31/16 07:00 Est GFR ( Amer) > 60 12/31/16 07:00 Est GFR (Non-Af Amer) > 60 12/31/16 07:00 Random Glucose 108 mg/dL (70-110) 12/31/16 07:00 Calcium 7.8 mg/dL (8.4-10.5) L 12/31/16 07:00 Phosphorus 3.2 mg/dL (2.5-4.5) 12/30/16 05:00 Magnesium 2.0 mg/dL (1.7-2.2) 12/30/16 05:00 Total Bilirubin 1.0 mg/dL (0.2-1.3) 12/31/16 07:00 AST 26 U/L (14-36) 12/31/16 07:00 ALT 31 U/L (7-56) 12/31/16 07:00 Alkaline Phosphatase 138 U/L (38-126) H 12/31/16 07:00 Lactate Dehydrogenase 635 U/L (333-699) 12/30/16 05:00 Total Creatine Kinase 58 U/L (35-230) 12/30/16 05:00 Troponin I 0.03 ng/mL D 12/30/16 05:00 NT-Pro-B Natriuret Pep 4670 pg/mL (0-450) H 12/30/16 05:00 Total Protein 6.6 g/dL (5.8-8.3) 12/31/16 07:00 Albumin 2.9 g/dL (3.0-4.8) L 12/31/16 07:00 Globulin 3.7 gm/dL 12/31/16 07:00 Albumin/Globulin Ratio 0.8 (1.1-1.8) L 12/31/16 07:00 Lipase 40 U/L (23-300) 12/30/16 05:00 Urine Color Yellow (YELLOW) 12/30/16 06:15 Urine Appearance Clear (CLEAR) 12/30/16 06:15 Urine pH 6.5 (4.7-8.0) 12/30/16 06:15 Ur Specific [place] 1.015 (1.005-1.035) 12/30/16 06:15 Urine Protein Negative mg/dL (<30 mg/dL) 12/30/16 06:15 Urine Glucose (UA) Negative mg/dL (NEGATIVE) 12/30/16 06:15 Urine Ketones Negative mg/dL (NEGATIVE) 12/30/16 06:15 Urine Blood Negative (NEGATIVE) 12/30/16 06:15 Urine Nitrate Negative (NEGATIVE) 12/30/16 06:15 Urine Bilirubin Negative (NEGATIVE) 12/30/16 06:15 Urine Urobilinogen 0.2 E.U./dL (<1 E.U./dL) 12/30/16 06:15 Ur Leukocyte Esterase Negative Seth/uL (NEGATIVE) 12/30/16 06:15 Digoxin 1.1 ng/mL (0.8-2.0) 12/30/16 05:00 - Hospital Course Hospital Course: Patient is a 71 year old female with a PMHx of ischemic CM, ascites/CHF, COPD, DM2, paroxysmal AFib who was admitted for evaluation and treatment of abdominal pain, distention and shortness of breath.With the use of physical examinations, lab work, and imaging the patient was diagnosed with and treated for ascites 2 /2 CHF 2/2 ischemic CM along with the patients other chronic medical conditions. During their hospital stay the patient was seen by interventional radiology and gastroenterology whose recommendations were both appreciated and utilized in the care for this patient.During their hospital stay the patient underwent an abdominal and pelvic ultrasound and chest xray which were reviewed , appreciated, and utilized in the management of the patients clinical course. Patient also underwent a paracentesis which revealed approximately 4200 ccs of clear fluid. Patient was treated with antihypertensive and diabetic medications amongst other empiric/therapeutic medications. At this time the patient is medically stable for discharge. Patient understands and appreciates discharge plan. Patient instructed to follow up with primary care physicians and referrals within three to five days from discharge. Furthermore, the patient is instructed to take medications as prescribed and to return to emergency room for evaluation of intractable headache, fever, chills, dizziness, chest pain, shortness of breath, abdominal pain, nausea, vomiting, diarrhea, constipation, and urinary symptoms. This is a brief summary of the patients hospital course. Please see patient chart for full details. Discharge Exam - Head Exam Head Exam: ATRAUMATIC, NORMAL INSPECTION, NORMOCEPHALIC - Additional Findings Additional findings: - Constitutional Appears: Non-toxic, No Acute Distress, Unkempt - Head Exam Head Exam: ATRAUMATIC, NORMAL INSPECTION, NORMOCEPHALIC - Eye Exam Eye Exam: EOMI, Normal appearance, PERRL Pupil Exam: NORMAL ACCOMODATION - ENT Exam ENT Exam: Mucous Membranes Moist, Normal Exam - Neck Exam Neck exam: Positive for: Normal Inspection - Respiratory Exam Respiratory Exam: Clear to Auscultation Bilateral, NORMAL BREATHING PATTERN. absent: Rales, Rhonchi, Wheezes - Cardiovascular Exam Cardiovascular Exam: RRR, +S1, +S2. absent: Gallop, JVD, Rubs - GI/Abdominal Exam GI & Abdominal Exam: Distended, Normal Bowel Sounds, Soft. absent: Tenderness - Extremities Exam Extremities exam: Positive for: normal inspection, pedal edema (1+) - Back Exam Back exam: NORMAL INSPECTION - Neurological Exam Neurological exam: Patient is awake, alert, responds to verbal stimuli, answers questions appropriately, follows commands, and moves extremities past midline - Psychiatric Exam Psychiatric exam: Normal Affect, Normal Mood - Skin Skin Exam: Normal Color, Warm Discharge Plan - Follow Up Plan Condition: FAIR Disposition: HOME/ ROUTINE Instructions: Heart Failure (ED) Additional Instructions: Patient Instructions: Take medications as prescribed. Follow up with PMD and referrals within three to five days from discharge. Return to the emergency room for evaluation of intractable headache, fever, chills, dizziness, chest pain, shortness of breath, abdominal pain, nausea, vomiting, diarrhea, constipation, and urinary symptoms
--- NOTE | 2016-12-31 16:36 | US ---
HISTORY: as per dr garcia group COMPARISON: None. TECHNIQUE: Sonographic evaluation of the abdomen. FINDINGS: LIVER: Measures 15.83 x 15.34 cm. Increased echogenicity of the liver parenchyma. No mass. No intrahepatic bile duct dilatation. GALLBLADDER: Removed COMMON BILE DUCT: Measures 4 mm. No stones. No dilatation. PANCREAS: Unremarkable as visualized. No mass. No ductal dilatation. RIGHT KIDNEY: Measures 9.57 x 4.57 x 5.07cm. Normal echogenicity. No calculus, mass, or hydronephrosis. 1 cm cyst LEFT KIDNEY: Measures 10.69 x 5.37 x 5.08cm. Normal echogenicity. No calculus, mass, or hydronephrosis. SPLEEN: Normal in size and contour. No mass. AORTA: No aneurysmal dilatation. IVC: Unremarkable. OTHER FINDINGS: None. IMPRESSION: Mild fatty infiltration of the liver. Gallbladder removed
--- NOTE | 2016-12-31 16:38 | US ---
HISTORY: R/O MASS COMPARISON: None available. TECHNIQUE: FINDINGS: UTERUS: Measures 7.44 x 4.27 x 3.78 cm. Normal in size and appearance. No fibroid or other mass lesion seen. ENDOMETRIUM: Measures 8 mm in diameter. Unremarkable. CERVIX: No cervical abnormality identified. RIGHT OVARY: Not visualized LEFT OVARY: Not visualized FREE FLUID: No significant free fluid noted. OTHER FINDINGS: None. IMPRESSION: No evidence of pelvic mass. Study limited by bowel gas
[2017-01-01 07:08] LABS: BASO # 0.01 K/mm3 (0.0-2.0); BASO % 0.2 % (0.0-3.0); EOS % 0.7 % (1.5-5.0); GRAN # 2.97 (1.4-6.5); GRAN % 71.1 % (50.0-68.0); HEMATOCRIT 41.3 % (36.0-48.0); LYMPH # 0.9 (1.2-3.4); LYMPH % 20.3 % (22.0-35.0); MEAN CELL VOLUME 85.2 fl (80.0-105.0); MEAN CORPUSCULAR HEMOGLOBIN 25.6 pg (25.0-35.0); MEAN PLATELET VOLUME 10.2 fl (7.0-11.0); MONO # 0.3 (0.1-0.6); MONO % 7.7 % (1.0-6.0); RED CELL DISTRIBUTION WIDTH 16.1 % (11.5-14.5); WHITE BLOOD COUNT 4.2 10^3/ul (4.5-11.0)
[2017-01-01 07:16] VITALS: O2SAT 95
[2017-01-01 07:30] LABS: ALB/GLOB RATIO 0.8 (1.1-1.8); ALKALINE PHOSPHATASE 176 U/L (38-126); ALT/SGPT 20 U/L (7-56); AST/SGOT 34 U/L (14-36); BILIRUBIN,TOTAL 0.6 mg/dL (0.2-1.3); BLOOD UREA NITROGEN 27 mg/dL (7-21); CARBON DIOXIDE 33 mmol/L (21-33); CHLORIDE 97 mmol/L (98-107); GFR AFRICAN-AMERICAN > 60; GLUCOSE,RANDOM 150 mg/dL (70-110); POTASSIUM 3.8 mmol/L (3.6-5.0); SODIUM 137 mmol/L (132-148); TOTAL PROTEIN 6.6 g/dL (5.8-8.3)
[2017-01-01 07:45] LABS: INR 1.31 (0.93-1.08)
[2017-01-01] MEDS: Insulin Lispro (humaLOG) LOW Coverage SC SCH ×3 (09:11→17:21)
[2017-01-01 13:28] VITALS: BP 119/71; PULSE 76; RESP 18; TEMP 98.1
--- NOTE | 2017-01-01 13:48 | US ---
PROCEDURE: Portal vein duplex ultrasound. CLINICAL HISTORY: Cirrhosis. Deteriorating liver function. Evaluate for portal vein thrombosis. PHYSICIAN(S): Yaw Leonard M.D. FINDINGS: The extrahepatic portal vein is patent with hepatopetal flow. No sonographic evidence for thrombus or obstruction is seen. The 3 hepatic veins are visualized centrally and patent. The hepatic artery is patent. The spleen is normal in size. No significant ascites is appreciated in the upper abdomen. IMPRESSION: 1. Patent portal vein with hepatopetal flow.
[2017-01-01] MEDS: Digoxin 250 mcg (0.25 mg) Tab PO SCH (14:50)
--- NOTE | 2017-01-01 15:24 | PN ---
DATE: 01/01/2017 SUBJECTIVE: This patient was seen and evaluated earlier today. The patient is tolerating the diet and comfortable. PHYSICAL EXAMINATION: VITAL SIGNS: Temperature 98.1, pulse 78, and blood pressure 119/71. HEENT: Atraumatic. Anicteric. NECK: Supple. HEART: S1 and S2 heard. LUNGS: Bilateral air entry present. ABDOMEN: Softly distended. EXTREMITIES: Bilateral edema present. NEUROLOGIC: Alert and oriented. LABORATORY DATA: Hemoglobin 12.4, hematocrit 41.3, WBC 4.2, and platelet 167. BUN 27 and creatinine 0.7. Alkaline phosphatase has gone up to 176. The patient did have ultrasound of the abdomen done, which was reviewed, status post cholecystectomy, common bile duct measure only 4 mm. The patient had pelvic ultrasound done, it showed no new evidence of any pelvic mass. The patient did have ascites, which was tapped twice. Ascetic fluid albumin gradient was greater than 1.1, it was 1.6 before. This was suggestive of more like a portal hypertension or secondary to the CHF. The patient predominantly has right ventricular dysfunction causing this ascites, probable etiology to be considered, however, the patient had EGD was done few years ago. It is reasonable to consider endoscopy and possibly colonoscopic evaluation as an outpatient. ASSESSMENT AND PLAN: The patient has paroxysmal atrial fibrillation. The patient has been on anticoagulation, Coumadin. The patient was advised to follow up for outpatient evaluation for an endoscopy and a colonoscopy. This was discussed with the patient at length and also with hospitalist. The patient is planning to be discharged today. Advised to come to the Emergency Room, if there are any further worsening of his symptoms. Thank you very much for allowing us to participate in the care of the patient. Zach Camacho MD
--- NOTE | 2017-01-01 15:29 | CP.PCM.DIS ---
<Babak Dowling - Last Filed: 01/01/17 15:26> Provider - Provider Date of Admission: 12/30/16 05:50 Attending physician: Yoselin Madrid MD Primary care physician: Garcia Valdez JD, MD Time Spent in preparation of Discharge (in minutes): 45 Hospital Course - Lab Results Lab Results: Most Recent Lab Values WBC 4.2 10^3/ul (4.5-11.0) L 01/01/17 06:30 RBC 4.85 10^6/uL (3.5-6.1) 01/01/17 06:30 Hgb 12.4 g/dL (12.0-16.0) 01/01/17 06:30 Hct 41.3 % (36.0-48.0) 01/01/17 06:30 MCV 85.2 fl (80.0-105.0) 01/01/17 06:30 MCH 25.6 pg (25.0-35.0) 01/01/17 06:30 MCHC 30.0 g/dl (31.0-37.0) L 01/01/17 06:30 RDW 16.1 % (11.5-14.5) H 01/01/17 06:30 Plt Count 167 10^3/uL (120.0-450.0) 01/01/17 06:30 MPV 10.2 fl (7.0-11.0) 01/01/17 06:30 Gran % 71.1 % (50.0-68.0) H 01/01/17 06:30 Lymph % (Auto) 20.3 % (22.0-35.0) L 01/01/17 06:30 [place] % (Auto) 7.7 % (1.0-6.0) H 01/01/17 06:30 Eos % (Auto) 0.7 % (1.5-5.0) L 01/01/17 06:30 Baso % (Auto) 0.2 % (0.0-3.0) 01/01/17 06:30 Gran # 2.97 (1.4-6.5) 01/01/17 06:30 Lymph # 0.9 (1.2-3.4) L 01/01/17 06:30 Boundary # 0.3 (0.1-0.6) 01/01/17 06:30 Eos # 0.0 (0.0-0.7) 01/01/17 06:30 Baso # 0.01 K/mm3 (0.0-2.0) 01/01/17 06:30 PT 14.5 SECONDS (9.4-12.5) H 01/01/17 06:30 INR 1.31 (0.93-1.08) H 01/01/17 06:30 APTT 40.7 Seconds (25.1-36.5) H 12/30/16 05:00 Sodium 137 mmol/L (132-148) 01/01/17 06:30 Potassium 3.8 mmol/L (3.6-5.0) 01/01/17 06:30 Chloride 97 mmol/L (98-107) L 01/01/17 06:30 Carbon Dioxide 33 mmol/L (21-33) 01/01/17 06:30 Anion Gap 10 (10-20) 01/01/17 06:30 BUN 27 mg/dL (7-21) H 01/01/17 06:30 Creatinine 0.9 mg/dl (0.7-1.2) 01/01/17 06:30 Est GFR ( Amer) > 60 01/01/17 06:30 Est GFR (Non-Af Amer) > 60 01/01/17 06:30 Random Glucose 150 mg/dL (70-110) H 01/01/17 06:30 Calcium 8.0 mg/dL (8.4-10.5) L 01/01/17 06:30 Phosphorus 3.2 mg/dL (2.5-4.5) 12/30/16 05:00 Magnesium 2.0 mg/dL (1.7-2.2) 12/30/16 05:00 Total Bilirubin 0.6 mg/dL (0.2-1.3) 01/01/17 06:30 AST 34 U/L (14-36) 01/01/17 06:30 ALT 20 U/L (7-56) 01/01/17 06:30 Alkaline Phosphatase 176 U/L (38-126) H D 01/01/17 06:30 Lactate Dehydrogenase 635 U/L (333-699) 12/30/16 05:00 Total Creatine Kinase 58 U/L (35-230) 12/30/16 05:00 Troponin I 0.03 ng/mL D 12/30/16 05:00 NT-Pro-B Natriuret Pep 4670 pg/mL (0-450) H 12/30/16 05:00 Total Protein 6.6 g/dL (5.8-8.3) 01/01/17 06:30 Albumin 3.0 g/dL (3.0-4.8) 01/01/17 06:30 Globulin 3.6 gm/dL 01/01/17 06:30 Albumin/Globulin Ratio 0.8 (1.1-1.8) L 01/01/17 06:30 Lipase 40 U/L (23-300) 12/30/16 05:00 Urine Color Yellow (YELLOW) 12/30/16 06:15 Urine Appearance Clear (CLEAR) 12/30/16 06:15 Urine pH 6.5 (4.7-8.0) 12/30/16 06:15 Ur Specific [place] 1.015 (1.005-1.035) 12/30/16 06:15 Urine Protein Negative mg/dL (<30 mg/dL) 12/30/16 06:15 Urine Glucose (UA) Negative mg/dL (NEGATIVE) 12/30/16 06:15 Urine Ketones Negative mg/dL (NEGATIVE) 12/30/16 06:15 Urine Blood Negative (NEGATIVE) 12/30/16 06:15 Urine Nitrate Negative (NEGATIVE) 12/30/16 06:15 Urine Bilirubin Negative (NEGATIVE) 12/30/16 06:15 Urine Urobilinogen 0.2 E.U./dL (<1 E.U./dL) 12/30/16 06:15 Ur Leukocyte Esterase Negative Seth/uL (NEGATIVE) 12/30/16 06:15 Digoxin 1.1 ng/mL (0.8-2.0) 12/30/16 05:00 - Hospital Course Hospital Course: Patient is a 71 year old female with a PMHx of ischemic CM, ascites/CHF, COPD, DM2, paroxysmal AFib who was admitted for evaluation and treatment of abdominal pain, distention and shortness of breath.With the use of physical examinations, lab work, and imaging the patient was diagnosed with and treated for ascites 2 /2 CHF 2/2 ischemic CM along with the patients other chronic medical conditions. During their hospital stay the patient was seen by interventional radiology and gastroenterology whose recommendations were both appreciated and utilized in the care for this patient.During their hospital stay the patient underwent an abdominal and pelvic ultrasound and chest xray which were reviewed , appreciated, and utilized in the management of the patients clinical course. Patient also underwent a paracentesis which revealed approximately 4200 ccs of clear fluid. Patient was treated with antihypertensive and diabetic medications amongst other empiric/therapeutic medications. At this time the patient is medically stable for discharge. Patient understands and appreciates discharge plan. Patient instructed to follow up with primary care physicians and referrals within three to five days from discharge. Furthermore, the patient is instructed to take medications as prescribed and to return to emergency room for evaluation of intractable headache, fever, chills, dizziness, chest pain, shortness of breath, abdominal pain, nausea, vomiting, diarrhea, constipation, and urinary symptoms. This is a brief summary of the patients hospital course. Please see patient chart for full details. Discharge Exam - Head Exam Head Exam: ATRAUMATIC, NORMAL INSPECTION, NORMOCEPHALIC - Additional Findings Additional findings: - Head Exam Head Exam: ATRAUMATIC, NORMAL INSPECTION, NORMOCEPHALIC - Additional Findings Additional findings: - Constitutional Appears: Non-toxic, No Acute Distress, Unkempt - Head Exam Head Exam: ATRAUMATIC, NORMAL INSPECTION, NORMOCEPHALIC - Eye Exam Eye Exam: EOMI, Normal appearance, PERRL Pupil Exam: NORMAL ACCOMODATION - ENT Exam ENT Exam: Mucous Membranes Moist, Normal Exam - Neck Exam Neck exam: Positive for: Normal Inspection - Respiratory Exam Respiratory Exam: Clear to Auscultation Bilateral, NORMAL BREATHING PATTERN. absent: Rales, Rhonchi, Wheezes - Cardiovascular Exam Cardiovascular Exam: RRR, +S1, +S2. absent: Gallop, JVD, Rubs - GI/Abdominal Exam GI & Abdominal Exam: Distended, Normal Bowel Sounds, Soft. absent: Tenderness - Extremities Exam Extremities exam: Positive for: normal inspection, pedal edema (1+) - Back Exam Back exam: NORMAL INSPECTION - Neurological Exam Neurological exam: Patient is awake, alert, responds to verbal stimuli, answers questions appropriately, follows commands, and moves extremities past midline - Psychiatric Exam Psychiatric exam: Normal Affect, Normal Mood - Skin Skin Exam: Normal Color, Warm Discharge Plan - Discharge Medications Prescriptions: Warfarin [Coumadin] 5 mg PO 1800 7 Days #7 tab - Follow Up Plan Condition: FAIR Disposition: HOME/ ROUTINE Patient education suggested?: Yes Instructions: Heart Failure (ED) Additional Instructions: Patient Instructions: Take medications as prescribed. Follow up with PMD and referrals within three to five days from discharge. Return to the emergency room for evaluation of intractable headache, fever, chills, dizziness, chest pain, shortness of breath, abdominal pain, nausea, vomiting, diarrhea, constipation, and urinary symptoms Referrals: Garcia Valdez JD, MD [Primary Care Provider] - Zach Camacho MD [Medical Doctor] - <Yoselin Madrid - Last Filed: 01/01/17 15:48> Provider - Provider Date of Admission: 12/30/16 05:50 Attending physician: Yoselin Madrid MD Primary care physician: Garcia Valdez JD, MD Hospital Course - Lab Results Lab Results: Most Recent Lab Values WBC 4.2 10^3/ul (4.5-11.0) L 01/01/17 06:30 RBC 4.85 10^6/uL (3.5-6.1) 01/01/17 06:30 Hgb 12.4 g/dL (12.0-16.0) 01/01/17 06:30 Hct 41.3 % (36.0-48.0) 01/01/17 06:30 MCV 85.2 fl (80.0-105.0) 01/01/17 06:30 MCH 25.6 pg (25.0-35.0) 01/01/17 06:30 MCHC 30.0 g/dl (31.0-37.0) L 01/01/17 06:30 RDW 16.1 % (11.5-14.5) H 01/01/17 06:30 Plt Count 167 10^3/uL (120.0-450.0) 01/01/17 06:30 MPV 10.2 fl (7.0-11.0) 01/01/17 06:30 Gran % 71.1 % (50.0-68.0) H 01/01/17 06:30 Lymph % (Auto) 20.3 % (22.0-35.0) L 01/01/17 06:30 [place] % (Auto) 7.7 % (1.0-6.0) H 01/01/17 06:30 Eos % (Auto) 0.7 % (1.5-5.0) L 01/01/17 06:30 Baso % (Auto) 0.2 % (0.0-3.0) 01/01/17 06:30 Gran # 2.97 (1.4-6.5) 01/01/17 06:30 Lymph # 0.9 (1.2-3.4) L 01/01/17 06:30 [place] # 0.3 (0.1-0.6) 01/01/17 06:30 Eos # 0.0 (0.0-0.7) 01/01/17 06:30 Baso # 0.01 K/mm3 (0.0-2.0) 01/01/17 06:30 PT 14.5 SECONDS (9.4-12.5) H 01/01/17 06:30 INR 1.31 (0.93-1.08) H 01/01/17 06:30 APTT 40.7 Seconds (25.1-36.5) H 12/30/16 05:00 Sodium 137 mmol/L (132-148) 01/01/17 06:30 Potassium 3.8 mmol/L (3.6-5.0) 01/01/17 06:30 Chloride 97 mmol/L (98-107) L 01/01/17 06:30 Carbon Dioxide 33 mmol/L (21-33) 01/01/17 06:30 Anion Gap 10 (10-20) 01/01/17 06:30 BUN 27 mg/dL (7-21) H 01/01/17 06:30 Creatinine 0.9 mg/dl (0.7-1.2) 01/01/17 06:30 Est GFR ( Amer) > 60 01/01/17 06:30 Est GFR (Non-Af Amer) > 60 01/01/17 06:30 Random Glucose 150 mg/dL (70-110) H 01/01/17 06:30 Calcium 8.0 mg/dL (8.4-10.5) L 01/01/17 06:30 Phosphorus 3.2 mg/dL (2.5-4.5) 12/30/16 05:00 Magnesium 2.0 mg/dL (1.7-2.2) 12/30/16 05:00 Total Bilirubin 0.6 mg/dL (0.2-1.3) 01/01/17 06:30 AST 34 U/L (14-36) 01/01/17 06:30 ALT 20 U/L (7-56) 01/01/17 06:30 Alkaline Phosphatase 176 U/L (38-126) H D 01/01/17 06:30 Lactate Dehydrogenase 635 U/L (333-699) 12/30/16 05:00 Total Creatine Kinase 58 U/L (35-230) 12/30/16 05:00 Troponin I 0.03 ng/mL D 12/30/16 05:00 NT-Pro-B Natriuret Pep 4670 pg/mL (0-450) H 12/30/16 05:00 Total Protein 6.6 g/dL (5.8-8.3) 01/01/17 06:30 Albumin 3.0 g/dL (3.0-4.8) 01/01/17 06:30 Globulin 3.6 gm/dL 01/01/17 06:30 Albumin/Globulin Ratio 0.8 (1.1-1.8) L 01/01/17 06:30 Lipase 40 U/L (23-300) 12/30/16 05:00 Urine Color Yellow (YELLOW) 12/30/16 06:15 Urine Appearance Clear (CLEAR) 12/30/16 06:15 Urine pH 6.5 (4.7-8.0) 12/30/16 06:15 Ur Specific [place] 1.015 (1.005-1.035) 12/30/16 06:15 Urine Protein Negative mg/dL (<30 mg/dL) 12/30/16 06:15 Urine Glucose (UA) Negative mg/dL (NEGATIVE) 12/30/16 06:15 Urine Ketones Negative mg/dL (NEGATIVE) 12/30/16 06:15 Urine Blood Negative (NEGATIVE) 12/30/16 06:15 Urine Nitrate Negative (NEGATIVE) 12/30/16 06:15 Urine Bilirubin Negative (NEGATIVE) 12/30/16 06:15 Urine Urobilinogen 0.2 E.U./dL (<1 E.U./dL) 12/30/16 06:15 Ur Leukocyte Esterase Negative Seth/uL (NEGATIVE) 12/30/16 06:15 Digoxin 1.1 ng/mL (0.8-2.0) 12/30/16 05:00 Attending/Attestation - Attestation I have personally seen and examined this patient.: Yes I have fully participated in the care of the patient.: Yes I have reviewed all pertinent clinical information, including history, physical exam and plan: Yes Notes (Text): 01/01/17 15:44 71 year old female with past medical history of systolic CHF, recurrent ascites , diabetes and paroxysmal afib who presented with abdominal pain and ascites. She was seen by IR and had 4.2 liters of fluid removed via paracentesis with improvement of symptoms. She had pelvis sonogram which was negative for masses and abdominal sonogram which showed fatty liver. She was also seen by GI who recommended outpatient endoscopic evaluation. Her coumadin dose was increased due to subtherapeutic INR. Lasix dose was adjusted as well. Patient is discharged home. At this time waiting for grandson to pick her up later this evening as per staff. Follow up with pmd for INR checks. Follow up with GI as above. Yoselin Madrid MD Hospitalist.
[2017-01-02] MEDS: Insulin Lispro (humaLOG) LOW Coverage SC SCH (00:10)
--- NOTE | 2017-01-02 09:50 | PN ---
DATE: 12/31/2016 SUBJECTIVE: This patient was seen and evaluated earlier today. Discussed with the nursing staff. The patient did have an ultrasound scan of the abdomen done now. PHYSICAL EXAMINATION: GENERAL: The patient is lying on the bed, not in acute distress. VITAL SIGNS: Temperature is 98.6, pulse 78, blood pressure is 95/69. HEENT: Atraumatic. Anicteric. NECK: Supple. HEART: S1 and S2 heard. LUNGS: Bilateral air entry present, slightly reduced at the base. LABORATORY DATA: Hemoglobin is 12.2, hematocrit 40.3, WBC is 4.9, platelets 182. Chemistry shows alkaline phosphatase has come down to 138. IMPRESSION: This 71-year-old patient with congestive heart failure, admitted with ascites. The patient did have paracentesis done in the past. The SAAG ratio was greater than 1.1. The cytology was negative. Hepatitis profile was negative. Had an endoscopy done in the past. The patient would benefit from upper gastrointestinal endoscopy. RECOMMENDATIONS: 1. The patient would benefit from elective EGD and colonoscopy. 2. The ultrasound scan of the abdomen was otherwise unremarkable except fatty liver. 3. Would recommend one to get a pelvic sonogram and also follow up of the LFTs. 4. The patient also would benefit from repeating elective colonoscopy. Possibility of the ascites would still remain unclear, possible cardiac etiology. Other differential diagnosis should include portal hypertension. Malignancy should also be considered in differential diagnosis, however, in view of the SAAG ratio before was greater than 1.6, is less likely. We will continue to closely follow up her care and suggest further management based on the clinical course. Zach Camacho MD
== END 2017-01-02 00:32 | disposition home or self-care (01) ==
LOC: ED 03:44 → ERH 05:50 → 3RSO 07:38
PROVIDERS: ADMIT Hospitalist; ATTEND Internal Medicine
DX: I11.0 Hypertensive heart disease with heart failure (principal); I50.22 Chronic systolic (congestive) heart failure; R18.8 Other ascites; J44.9 Chronic obstructive pulmonary disease, unspecified; I48.0 Paroxysmal atrial fibrillation; I25.5 Ischemic cardiomyopathy; I25.10 Atherosclerotic heart disease of native coronary artery without angina pectoris; E11.9 Type 2 diabetes mellitus without complications; D64.9 Anemia, unspecified; H91.90 Unspecified hearing loss, unspecified ear; K21.9 Gastro-esophageal reflux disease without esophagitis; K44.9 Diaphragmatic hernia without obstruction or gangrene; E78.5 Hyperlipidemia, unspecified; Z85.3 Personal history of malignant neoplasm of breast; Z86.73 Personal history of transient ischemic attack (TIA), and cerebral infarction without residual deficits; Z95.1 Presence of aortocoronary bypass graft; Z79.01 Long term (current) use of anticoagulants; Z95.810 Presence of automatic (implantable) cardiac defibrillator; Z95.2 Presence of prosthetic heart valve; Z95.5 Presence of coronary angioplasty implant and graft; Z90.49 Acquired absence of other specified parts of digestive tract
CPT/HCPCS: 36415; 49083; 71010; 76700; 76856; 80053; 80162; 81003; 82550; 83615; 83690; 83735; 83880; 84100; 84484; 85025; 85610; 85730; 93005; 96374; 97116; 97162; 99285; G0378; G8978; G8979; J1940

== ENCOUNTER 2017-01-04 11:15 | Inpatient (IN) | payer MEDICARE, OTHER ==
[2017-01-04 11:35] VITALS: BMI 26.5
[2017-01-04 12:16] LABS: BASO # 0.02 K/mm3 (0.0-2.0); BASO % 0.4 % (0.0-3.0); EOS % 0.8 % (1.5-5.0); GRAN # 3.62 (1.4-6.5); GRAN % 75.3 % (50.0-68.0); HEMATOCRIT 43.8 % (36.0-48.0); LYMPH # 0.7 (1.2-3.4); LYMPH % 13.9 % (22.0-35.0); MEAN CELL VOLUME 85.7 fl (80.0-105.0); MEAN CORPUSCULAR HEMOGLOBIN 26.2 pg (25.0-35.0); MEAN CORPUSCULAR HGB CONC 30.6 g/dl (31.0-37.0); MEAN PLATELET VOLUME 10.7 fl (7.0-11.0); MONO # 0.5 (0.1-0.6); MONO % 9.6 % (1.0-6.0); RED CELL DISTRIBUTION WIDTH 16.2 % (11.5-14.5); WHITE BLOOD COUNT 4.8 10^3/ul (4.5-11.0)
[2017-01-04 12:33] LABS: INR 1.84 (0.93-1.08); PARTIAL THROMBOPLASTIN TIME 37.2 Seconds (25.1-36.5)
[2017-01-04 12:38] LABS: TROPONIN I 0.02 ng/mL
[2017-01-04 13:09] LABS: ALB/GLOB RATIO 0.9 (1.1-1.8); ALKALINE PHOSPHATASE 170 U/L (38-126); ALT/SGPT 29 U/L (7-56); AMYLASE 36 U/L (35-125); AST/SGOT 29 U/L (14-36); BILIRUBIN,TOTAL 0.9 mg/dL (0.2-1.3); BLOOD UREA NITROGEN 21 mg/dL (7-21); CALCIUM 8.6 mg/dL (8.4-10.5); CARBON DIOXIDE 36 mmol/L (21-33); CHLORIDE 100 mmol/L (98-107); GFR AFRICAN-AMERICAN > 60; GLUCOSE,RANDOM 114 mg/dL (70-110); SODIUM 141 mmol/L (132-148); TOTAL PROTEIN 6.9 g/dL (5.8-8.3)
--- NOTE | 2017-01-04 13:48 | RAD ---
HISTORY: examine gas pattern COMPARISON: 02/18/2014 FINDINGS: BOWEL: Moderate stool retention No obstruction. No free air. Moderate stool over 10 BONES: Generalized osteopenia. Diffuse inferior lumbar spondylosis and reading and degenerative disc space narrowing. Inferior lumbar facet arthrosis OTHER FINDINGS: Extensive atherosclerotic vascular calcifications over pancreatic region - each sacral wing. Bilateral egg shell high gluteal injection granulomas. The coiling metallic densities projecting over the pelvis are consistent with mesh for hernia treated Sternal wires and [address]. Valvular prosthesis also present. . Clips in the right upper quadrant -cholecystectomy status inferred IMPRESSION: Moderate stool retention. No bowel obstruction appreciated. Atherosclerotic vascular disease Next number cholecystectomy status
[2017-01-04 14:25] LABS: LIPASE 20 U/L (23-300)
--- NOTE | 2017-01-04 14:50 | RAD ---
HISTORY: rout med exam COMPARISON: 12/30/2016 TECHNIQUE: Chest PA and lateral FINDINGS: LUNGS: No active pulmonary disease. PLEURA: Right hemidiaphragm appears less mammillated -more flat in appearance -likely due to greater inspiration. No significant appear right pleural effusion noted. Current appearance is also similar to on 09/15/2016 appear. No pneumothorax apparent. CARDIOVASCULAR: Moderate cardiomegaly-similar. Sternal wires, dual lead pacemaker device -similar/renoted. Valvular device in place -similar OSSEOUS STRUCTURES: No significant abnormalities. VISUALIZED UPPER ABDOMEN: Normal. OTHER FINDINGS: None. IMPRESSION: Moderate cardiomegaly. No interval pathology noted.
--- NOTE | 2017-01-04 18:47 | US ---
HISTORY: check ruq pathlogy/ check for ascites COMPARISON: Abdominal ultrasound performed 12/31/16 TECHNIQUE: Sonographic evaluation of the right upper quadrant of the abdomen. FINDINGS: LIVER: Nodular hepatic contour. The liver measures approximately 18.1 cm. No focal hepatic mass identified. The main portal vein appears patent with normal directional flow. No intrahepatic bile duct dilatation. GALLBLADDER: Cholecystectomy. COMMON BILE DUCT: Measures 7 mm. PANCREAS: Not well-visualized. Hypoechoic focus measuring approximately 0.7 x 0.9 x 1.0 cm noted at the level the pancreatic head, indeterminate. RIGHT KIDNEY: Measures 8.9 x 4.8 x 4.9 cm. No obstructing calculus or hydronephrosis identified. AORTA: Not well-visualized. IVC: Limited visualization appears grossly unremarkable. OTHER FINDINGS: Small to moderate abdominal ascites. IMPRESSION: Cholecystectomy. Hypoechoic focus measuring approximately 0.7 x 0.9 x 1.0 cm noted at the level the pancreatic head, indeterminate. The pancreas is not well visualized. Dedicated pancreatic CT suggested for further evaluation if indicated. Small to moderate abdominal ascites. Nodular hepatic contour.
--- NOTE | 2017-01-04 19:26 | ED PDOC ---
Arrival/HPI - General Chief Complaint: Abdominal Pain Time Seen by Provider: 01/04/17 11:26 Historian: Patient - History of Present Illness Narrative History of Present Illness (Text): 71 y/o woman w/ pmhx of recurrent and intractable ascites, infrarenal AAA, DM, presents c/o 2-3 days of increased abdominal pain, no clear exacerbative/ palliative factors, no accompanying sob/n/v/d/decrementaiton of appetitie nor significnat decrementatio of her et, althugh she complains of chrocni shortness pof rbeath and poor exercise tolerance. SHe doesn't remember her last bm, and does endorse iproved symptomatology after her past paracentesis. 01/04/17 19:09 Symptom Onset: Gradual Symptom Course: Unchanged Past Medical History - Provider Review Nursing Documentation Reviewed: Yes - Infectious Disease Hx of Infectious Diseases: None - Tetanus Immunization Tetanus Immunization: Unknown - Cardiac Hx Cardiac Disorders: Yes Hx Congestive Heart Failure: Yes Hx Hypertension: Yes - Pulmonary Hx Chronic Obstructive Pulmonary Disease (COPD): Yes - Neurological Hx Neurological Disorder: Yes Hx Dementia: Yes Hx Transient Ischemic Attacks (TIA): Yes - HEENT Hx HEENT Disorder: Yes Hx Deafness: Yes ([place]) - Renal Hx Renal Disorder: No - Endocrine/Metabolic Hx Diabetes Mellitus Type 2: Yes - Hematological/Oncological Hx Blood Disorders: Yes Hx Anemia: Yes Hx Cancer: Yes (breast ca) - Integumentary Hx Dermatological Disorder: Yes Other/Comment: MOTTLED LEGS AND ARMS. - Musculoskeletal/Rheumatological Hx Arthritis: Yes - Gastrointestinal Hx Gastrointestinal Disorders: Yes (ascites) Hx Diverticulitis: Yes Hx Gall Bladder Disease: Yes (cholecystectomy) Hx Gastroesophageal Reflux: Yes - Genitourinary/Gynecological Hx Genitourinary Disorders: Yes Hx Incontinence: Yes - Psychiatric Hx Psychophysiologic Disorder: Yes Hx Anxiety: Yes Hx Depression: Yes Hx Substance Use: No - Surgical History Hx Appendectomy: Yes Hx Cardiac Catheterization: Yes Hx Cholecystectomy: Yes Hx Coronary Stent: Yes Hx Mastectomy: Yes Hx Open Heart Surgery: Yes Hx Orthopedic Surgery: Yes (laminectomy) Other/Comment: Herniated disc repair, tonsilectomy - Anesthesia Hx Anesthesia: No - Suicidal Assessment Feels Threatened In Home Enviroment: No Family/Social History - Physician Review Nursing Documentation Reviewed: Yes Family/Social History: No Known Family HX Smoking Status: Current Some Days Smoker Hx Alcohol Use: No Hx Substance Use: No Hx Substance Use Treatment: No Allergies/Home Meds Allergies/Adverse Reactions: Allergies adhesive tape Allergy (Verified 12/30/16 03:56) REDNESS naproxen Allergy (Verified 12/30/16 03:56) VOMITING ciprofloxacin Adverse Reaction (Verified 12/30/16 03:56) ANAPHYLAXIS Home Medications: Home Meds Medication Instructions Recorded Confirmed Digoxin [Lanoxin] 250 mcg PO DAILY 12/30/16 Review of Systems - Physician Review All systems were reviewed & negative as marked: Yes - Review of Systems Constitutional: Normal Eyes: Normal ENT: Normal Respiratory: Normal Cardiovascular: Normal Gastrointestinal: Abdominal Pain Genitourinary Female: Normal Musculoskeletal: Normal Skin: Normal Neurological: Normal Endocrine: Normal Hemo/Lymphatic: Normal Psychiatric: Normal Physical Exam Vital Signs Reviewed: Yes Vital Signs Temp Pulse Resp BP Pulse Ox 01/04/17 16:15 61 18 114/65 96 01/04/17 13:37 65 18 118/68 96 01/04/17 11:37 97.6 F 63 18 116/66 96 Temperature: Afebrile Blood Pressure: Normal Pulse: Regular Respiratory Rate: Normal Appearance: Positive for: Well-Appearing, Non-Toxic, Comfortable Pain Distress: None Mental Status: Positive for: Alert and Oriented X 3 - Systems Exam Head: Present: Atraumatic, Normocephalic Pupils: Present: PERRL Extroacular Muscles: Present: EOMI Conjunctiva: Present: Normal Mouth: Present: Moist Mucous Membranes Neck: Present: Normal Range of Motion Respiratory/Chest: Present: Clear to Auscultation, Good Air Exchange. No: Respiratory Distress, Accessory Muscle Use Cardiovascular: Present: Regular Rate and Rhythm, Normal S1, S2. No: Murmurs Abdomen: Present: Normal Bowel Sounds, Other (mild right sided disomfort w/ deep palpation, hepatomegaly ruq discomfort> rlq discomfort. ). No: Tenderness , Distention, Peritoneal Signs Back: Present: Normal Inspection Upper Extremity: Present: Normal Inspection. No: Cyanosis, Edema Lower Extremity: Present: Normal Inspection. No: Edema Neurological: Present: GCS=15, CN II-XII Intact, Speech Normal, Motor Func Grossly Intact, Normal Sensory Function, Normal Cerebellar Funct, Norm Deep Tendon Reflexes Skin: Present: Warm, Dry, Normal Color. No: Rashes Psychiatric: Present: Alert, Oriented x 3, Normal Insight, Normal Concentration Medical Decision Making ED Course and Treatment: 71 y/o woman w/ pmhx of oaforelisted cpomorbidities including recurrent and intracable ascites, recent paracenteisi present c/o vaga adboiminal ditiention and constipation. Labs and imaging either wnl or at baseline. will be discharged home. 01/04/17 19:28 - Lab Interpretations Lab Results: 01/04/17 12:03 01/04/17 12:03 Lab Results 01/04/17 12:03: Sodium 141, Potassium 4.0, Chloride 100, Carbon Dioxide 36 H, Anion Gap 9 L, BUN 21, Creatinine 0.8, Est GFR ( Amer) > 60, Est GFR (Non -Af Amer) > 60, Random Glucose 114 H, Calcium 8.6, Total Bilirubin 0.9, AST 29, ALT 29, Alkaline Phosphatase 170 H, Lactate Dehydrogenase 627, Total Creatine Kinase 51, Troponin I 0.02 D, Total Protein 6.9, Albumin 3.2, Globulin 3.7, Albumin/Globulin Ratio 0.9 L, Amylase 36, Lipase 20 L 01/04/17 12:03: PT 20.5 H, INR 1.84 H, APTT 37.2 H 01/04/17 12:03: WBC 4.8, RBC 5.11, Hgb 13.4, Hct 43.8, MCV 85.7, MCH 26.2, MCHC 30.6 L, RDW 16.2 H, Plt Count 200, MPV 10.7, Gran % 75.3 H, Lymph % (Auto) 13.9 L, [place] % (Auto) 9.6 H, Eos % (Auto) 0.8 L, Baso % (Auto) 0.4, Gran # 3.62, Lymph # 0.7 L, [place] # 0.5, Eos # 0.0, Baso # 0.02 - RAD Interpretation Radiology Orders: 01/04/17 11:36 ABD 2 VIEWS (FLAT/UP OR DECUB) [RAD] Stat 01/04/17 11:40 HEPATIC [US] Stat 01/04/17 13:25 AORTA, IVC, ILIAC DUPLEX [US] Stat 01/04/17 13:33 CHEST TWO VIEWS (PA/LAT) [RAD] Stat - Medication Orders Current Medication Orders: Discontinued Medications Docusate Sodium (Colace) 200 mg PO STAT STA Stop: 01/04/17 18:47 Famotidine (Pepcid) 20 mg IVP STAT STA Stop: 01/04/17 11:37 Last Admin: 01/04/17 12:19 Dose: 20 mg IVP Administration Document 01/04/17 12:19 HI (Rec: 01/04/17 12:19 CT [id number]) Charges for Administration # of IVP Administrations 1 Disposition/Present on Arrival - Present on Arrival Any Indicators Present on Arrival: No History of DVT/PE: No History of Uncontrolled Diabetes: No Urinary Catheter: No History of Decub. Ulcer: No History Surgical Site Infection Following: None - Disposition Have Diagnosis and Disposition been Completed?: Yes Diagnosis: Ascites, Constipation Disposition: HOME/ ROUTINE Disposition Time: 19:31 Patient Plan: Discharge Patient Problems: Current Active Problems Problem Status Onset Constipation Acute Ascites Chronic Condition: GOOD Discharge Instructions (ExitCare): Constipation (DC), High Fiber Diet (ED) Print Language: IVORIAN Additional Instructions: Drink more water in between your meals, eat a raw green salad daily, along with fresh fruit. TAKE LAXATIVES DIRECTED AND NEEDED TO HELP CLEAR OUT THE FECAL IMPASSE. Prescriptions: Psyllium Husk [Konsyl] 300 gm PO BID PRN 10 Days powder PRN Reason: Constipation Sennosides [Senna] 8.6 mg PO HS PRN #14 tablet PRN Reason: Constipation Forms: [facility] [facility] (Turkish)
--- NOTE | 2017-01-04 22:23 | US ---
PROCEDURE: 1. Duplex ultrasound of the abdominal aorta. HISTORY: Abdominal aortic aneurysm. PHYSICIAN(S): Yaw Leonard MD. FINDINGS: The exam is very limited by bowel gas in the patient's inability to cooperate. There is diffuse atherosclerotic disease the visualized abdominal aorta. There is a small aneurysm of the distal abdominal aorta which measures up to 3.6 cm in greatest sagittal dimension IMPRESSION: 1. 3.6 cm distal infrarenal abdominal aortic aneurysm.
--- NOTE | 2017-01-04 23:22 | CARD ---
APPROVED REPORT EKG Measurement Heart [id number] <Conclusion> Electronic ventricular pacemaker
[2017-01-05] MEDS ORDERED: Non Formulary Medication (Furosemide [Lasix] 40 MG) PO SCH (10:45)
[2017-01-05] MEDS ORDERED: Digoxin 125 mcg (0.125 mg) Tab PO SCH (10:45)
[2017-01-05] MEDS: Digoxin 250 mcg (0.25 mg) Tab PO SCH (14:26)
[2017-01-05 21:51] LABS: TROPONIN I 0.02 ng/mL
--- NOTE | 2017-01-06 00:42 | CON ---
DATE: 01/05/2017 CARDIOLOGY CONSULTATION REASON FOR CONSULTATION AND FOLLOWUP: Abdominal pain, shortness of breath, decompensated congestive heart failure, acute on chronic systolic dysfunction secondary to ischemic cardiomyopathy. BRIEF CLINICAL HISTORY: This is a 71-year-old female, one of the multiple admissions with acute decompensated congestive heart failure with past medical history significant for coronary artery disease, CABG, ischemic cardiomyopathy, history goes back to 1989, history of inferior wall MS status post tPA, since then the patient has multiple PTCAs and later on the patient had CABG and AICD placed. Multiple times being treated with IV Dobutrex and abdominal paracentesis, who came in with complaint of abdominal pain, distention and shortness of breath. Denies any chest pain. PAST MEDICAL HISTORY: Significant for longstanding history of coronary artery disease, status post inferior wall MS in 1989, status post tPA was given. Subsequently over the period of time, the patient had multiple PTCAs and later on the patient had a coronary artery disease at [facility] and mitral valve repair. Later on, the patient's AICD was placed in [facility]. Known history of atrial fibrillation, on anticoagulation; history of diabetes, on oral hypoglycemic agent, but because of recurrent hypoglycemia off oral hypoglycemia agent; multiple admissions for decompensated congestive heart failure, secondary to acute on chronic systolic dysfunction, ischemic cardiomyopathy, history of multiple abdominal paracentesis because of recurrent ascites. PAST SURGICAL HISTORY: Significant for incarcerated hernia, abdominal surgery, history of multiple abdominal paracenteses, history of coronary artery disease, history of CABG, history of stent, history of AICD, and history of mitral valve repair. PREVIOUS CARDIAC WORKUP: As follows: The patient had echocardiography on 04/09/2015, that showed ejection fraction of 20% to 25%, [id number] mitral regurgitation, status post mitral valve repair, jvva-[id number] mitral regurgitation, valve area 1.3 cm2, severe tricuspid regurgitation, RV systolic pressure of 51, and suggestive of [id number] pulmonary hypertension. ALLERGIES: NAPROSYN AND CIPROFLOXACIN. SOCIAL HISTORY: Denies smoking. Denies any history of alcohol abuse. Lives with grandson. CURRENT MEDICATIONS: The patient is at home taking Coumadin, warfarin, and digoxin. REVIEW OF SYSTEMS: As per HPI. PHYSICAL EXAMINATION: VITAL SIGNS: As follows: Temperature afebrile, heart rate 78, and blood pressure 120/80. HEENT: PERRLA intact. NECK: Supple. No carotid bruits or thyromegaly. CHEST: Clear to auscultation. HEART: S1 and S2, regular. ABDOMEN: Soft. EXTREMITIES: Clubbing and cyanosis negative. LABORATORY DATA: Blood workup as follows: WBC of 4.8, hemoglobin of 13 , hematocrit of 43.8, and platelet count of 200. Chemistry shows sodium 141, potassium of 4.0, chloride 100, carbon dioxide 36, anion gap of 9, BUN of 20, creatinine 0.8. Troponin 0.02. Total protein 6.9, albumin 3.2, and globulin 0.9 IMPRESSION: Acute decompensated congestive heart failure, acute on chronic systolic dysfunction, ischemic cardiomyopathy, chronic atrial fibrillation, diabetes, hypertension, hyperlipidemia, INR 1.84, recurrent ascites, history of chronic atrial fibrillation, very extensive history of coronary artery disease, and noncompliance with the medication. Lot of social issues. Attempted to send the patient with Dobutrex home, but because of the home environment, it is not possible to send him home with high risk of infection, infective endocarditis, so we decided to treat periodically when the patient comes here, I treated with IV Dobutrex. RECOMMENDATIONS: We will start low dose of IV Dobutrex. Continue IV Lasix. We will put digoxin. We will give low dose of Coumadin to prevent overshoot of INR. We will give Coreg, low-dose GIUSEPPE inhibitor as blood pressure is tolerated. We will follow with you. Thank you Dr. Boles/Dr. Valdez for providing me the opportunity in taking care of Chasidy Alicia. Tonia Quinteros MD
[2017-01-06 06:28] LABS: BASO # 0.02 K/mm3 (0.0-2.0); BASO % 0.5 % (0.0-3.0); EOS # 0.1 (0.0-0.7); EOS % 1.6 % (1.5-5.0); GRAN # 2.65 (1.4-6.5); GRAN % 70.9 % (50.0-68.0); HEMATOCRIT 41.2 % (36.0-48.0); LYMPH # 0.7 (1.2-3.4); LYMPH % 18.7 % (22.0-35.0); MEAN CORPUSCULAR HEMOGLOBIN 25.9 pg (25.0-35.0); MEAN CORPUSCULAR HGB CONC 30.1 g/dl (31.0-37.0); MEAN PLATELET VOLUME 10.8 fl (7.0-11.0); MONO # 0.3 (0.1-0.6); MONO % 8.3 % (1.0-6.0); RED CELL DISTRIBUTION WIDTH 16.4 % (11.5-14.5); WHITE BLOOD COUNT 3.7 10^3/ul (4.5-11.0)
[2017-01-06 06:42] LABS: INR 1.82 (0.93-1.08)
--- NOTE | 2017-01-06 06:42 | HP ---
CHIEF COMPLAINT: Abdominal pain. HISTORY OF PRESENT ILLNESS: Ms. Chasidy Alicia is a 71-year-old woman with recurrent intractable ascites, infrarenal AAA, and diabetes mellitus, who came to the emergency room for 2-3 days with increased abdominal pain. No clear observation. No accompanying shortness of breath. No nausea, vomiting or diarrhea. No headache. No dizziness. No fever. No chills. Decrease of the appetite. Chronic shortness of breath and poor exercise tolerance. She does not remember her last bowel movement and does endorse improved symptomatically after her past paracentesis. Discussion done with the patient's grandson. PAST MEDICAL HISTORY: As above, congestive heart failure, hypertension, COPD, dementia, TIA, deafness, diabetes mellitus type 2, anemia, history of breast cancer, arthritis, ascites, cholecystectomy, gastroesophageal reflux disease, urinary incontinence, anxiety, and depression. PAST SURGICAL HISTORY: Appendectomy, cardiac catheterization, cholecystectomy, coronary stenting, mastectomy, open heart surgery, laminectomy, and tonsillectomy. FAMILY HISTORY: Father and mother noncontributory. HABITS: Alcohol, no. Substance abuse, no. Smoking, yes, light smoker. ALLERGIES: ADHESIVE TAPE, NAPROXEN, CIPROFLOXACIN. HOME MEDICATIONS: Lenoxin. REVIEW OF SYSTEMS: The patient is seen and examined at the bedside, looking comfortable, sometimes complaining of abdominal pain and shortness of breath. No fever. No chills. No nausea, vomiting or diarrhea. No headache or dizziness. PHYSICAL EXAMINATION: VITAL SIGNS: Temperature 97.3, pulse 63, respiratory rate 18, blood pressure 116/66, and pulse oximetry 96%. HEENT: Head is normocephalic and atraumatic. Eyes, PERRLA. Extraocular muscles intact. Conjunctivae are clear. Nose is patent. Mucous membranes moist. NECK: Supple. No carotid bruits. No JVD or thyromegaly. CHEST: Bilaterally symmetrical. HEART: S1 and S2 positive. LUNGS: Clear to auscultation. ABDOMEN: Soft. Bowel sounds present. No organomegaly. EXTREMITIES: No edema. No cyanosis. NEUROLOGIC: The patient is awake and alert. Moving all 4 extremities. No focal deficits. LABORATORY DATA: White blood cells 4.8, hemoglobin 13.4, hematocrit 43.8, and platelets 200. Sodium 141, potassium 4.0, BUN 21, creatinine 0.8, and glucose 114. ASSESSMENT AND PLAN: Ms. Chasidy Alicia is a 71-year-old lady who came in with constipation and ascites. The patient was advised to have high-fiber diet. Abdominal ultrasound done showed 3.6-cm distal infrarenal abdominal aortic aneurysm, history of cholecystectomy, hypoechoic focus measuring approximately 0.7 x 0.9 x 1.0 cm noted at the level of the pancreatic head, indeterminate. The pancreas is not well visualized. Dedicated pancreatic CT suggested for further evaluation if indicated, nodular hepatic contour, rule out cirrhosis. Echocardiography done, abdominal x-ray done, and chest x-ray done also. Discussion done with ER physician and nurse practitioner, Chari. The patient has diabetes mellitus, chronic obstructive pulmonary disease, hypertension, congestive heart failure, transient ischemic attack, bilaterally deaf, anemia, history of breast cancer, diverticulosis, history of anxiety and depression, coronary stents, and appendectomy. Length of time discussion done with the patient's grandson. The patient lives almost alone. We called Cardiology consult, Dr. Quinteros, he put the patient on IV Lasix, Coreg, Coumadin, digoxin, and Zestril. We will give lactulose for bowel movement. Gastrointestinal and deep venous thrombosis prophylaxis. Repeat labs. We will follow. Paula Boles MD MTDD
[2017-01-06 07:25] LABS: BLOOD UREA NITROGEN 23 mg/dL (7-21); CALCIUM 8.2 mg/dL (8.4-10.5); CARBON DIOXIDE 29 mmol/L (21-33); CHLORIDE 100 mmol/L (98-107); GFR AFRICAN-AMERICAN > 60; GLUCOSE,RANDOM 135 mg/dL (70-110); MAGNESIUM 1.8 mg/dL (1.7-2.2); PHOSPHOROUS 3.8 mg/dL (2.5-4.5); SODIUM 139 mmol/L (132-148)
[2017-01-06] MEDS: Digoxin 250 mcg (0.25 mg) Tab PO SCH (15:47)
--- NOTE | 2017-01-06 18:49 | PN ---
DATE: 01/06/2017 LOCATION: The patient in room 364, bed 2. REASON FOR CONSULTATION: Followup abdominal pain, shortness of breath, decompensated congestive heart failure, acute on chronic systolic dysfunction due to ischemic cardiomyopathy. SUBJECTIVE: The patient is lying in bed. Denies chest pain, but she says she get shortness of breath and has abdominal discomfort. Denies palpitation. PHYSICAL EXAMINATION VITAL SIGNS: Blood pressure 90/50, respirations 18, pulse 72 and temperature 97.4. HEENT: Head is normocephalic. Eyes; pupils normal. Conjunctivae normal. NECK: JVP slightly elevated. LUNGS: No significant rales. CARDIOVASCULAR: S1 and S2, pansystolic murmur grade 3/6, no rub. ABDOMEN: Protuberant. Ascites present. EXTREMITIES: No clubbing. No cyanosis. Edema present. LABORATORY DATA: WBC 3.7, hemoglobin 12.4, hematocrit 41.2 and platelets 184. Sodium 139, potassium 4.0, BUN 23, creatinine 1.0, random sugar 135, calcium 8.2, phosphorus 3.8 and magnesium 1.8. TSH 10.10. Troponin x2 negative. Chest x-ray cardiomegaly. DIAGNOSES: Acute decompensated congestive heart failure, acute on chronic systolic dysfunction due to ischemic cardiomyopathy, chronic atrial fibrillation, diabetes, hypertension, hyperlipidemia, recurrent ascites, extensive history of coronary artery disease. The patient is noncompliant with medications. Lot of social issues. PLAN: The patient is getting furosemide 40 IV q.12 hours, warfarin 3 mg p.o. daily, Coreg started 3.125 b.i.d., lisinopril 2.5 mg p.o. daily. The patient's prothrombin time 20.3. INR 1.82. We will continue present therapy. We will follow with you. Tonia Roy MD
--- NOTE | 2017-01-06 21:36 | PN ---
DATE: The patient is a 71 years old female. SUBJECTIVE: The patient was seen and examined in the bedside. Sleepy, arousable, moving all 4 extremities on awakening. No headache. No dizziness. No chest pain. No palpitation. The patient is a very poor historian. No fever. No chills. PHYSICAL EXAMINATION: VITAL SIGNS: Temperature 97.8, pulse 80, blood pressure 97/62, respiratory rate 20. HEENT: Head normocephalic, atraumatic. Eyes PERRLA. Extraocular muscles intact. Conjunctivae clear. Nose patent. Mucous membrane moist. NECK: Supple. No carotid bruit. No JVD or thyromegaly. CHEST: Bilaterally symmetrical. HEART: S1 and S2 positive. LUNGS: Clear to auscultation. ABDOMEN: Soft. Bowel sounds positive. No organomegaly. EXTREMITIES: No edema. No cyanosis. NEUROLOGICAL: The patient is awake, sleepy, arousable. Moving all 4 extremities. No focal deficits. LABORATORY DATA: White blood cells 13.7, hemoglobin 12.4, hematocrit 41.2, platelets 184. Sodium 139, potassium 4.0, BUN 23, creatinine 1.0, glucose 135, calcium 8.2. MEDICATIONS: Coreg, Coumadin, lactulose, digoxin, Lasix, Pepcid, Zestril. ASSESSMENT AND PLAN: Ms. Chasidy Alicia is a 71 years old lady with leukopenia, increased BUN, hyperglycemia, uncontrolled diabetes mellitus, hypocalcemia, hypothyroidism. Seen by Dr. Roy. History of congestive heart failure, acute decompensated congestive heart failure, acute on chronic systolic dysfunction due to ischemic cardiomyopathy, chronic atrial fibrillation, diabetes mellitus, hypertension, hypercholesterolemia, recurrent ascites, extensive history of coronary artery disease. The patient is very noncompliant with medication and has a lot of social issues also. Social workers are on the case. Discussion done with nurse practitionerChari. The patient is getting Lasix, Coreg, lisinopril. Prothrombin time is 20.3, iron is 1.82. We will continue present treatment. Gastrointestinal and deep venous thrombosis prophylaxis. Discussion done with the patient's grandson. We will give physical therapy. We will follow up. Paula Boles MD
[2017-01-07 08:06] LABS: ALB/GLOB RATIO 0.8 (1.1-1.8); ALKALINE PHOSPHATASE 138 U/L (38-126); ALT/SGPT 35 U/L (7-56); AST/SGOT 28 U/L (14-36); BILIRUBIN,TOTAL 0.6 mg/dL (0.2-1.3); BLOOD UREA NITROGEN 25 mg/dL (7-21); CALCIUM 8.3 mg/dL (8.4-10.5); CARBON DIOXIDE 33 mmol/L (21-33); CHLORIDE 99 mmol/L (98-107); GFR AFRICAN-AMERICAN > 60; GLUCOSE,RANDOM 124 mg/dL (70-110); POTASSIUM 3.7 mmol/L (3.6-5.0); SODIUM 138 mmol/L (132-148); TOTAL PROTEIN 6.8 g/dL (5.8-8.3)
[2017-01-07 08:11] LABS: INR 1.86 (0.93-1.08)
[2017-01-07] MEDS: Levalbuterol 0.63 MG/3 ML Inhal Soln UD IH SCH ×3 (08:56→20:10)
--- NOTE | 2017-01-07 09:40 | CON ---
DATE: 01/06/2017 PULMONARY CONSULTATION REFERRING PHYSICIAN: Paula Boles MD REASON FOR CONSULT: Chronic obstructive lung disease, cough and shortness of breath. HISTORY OF PRESENT ILLNESS: This is a 71-year-old female with known history of AAA, recurrent ascites, diabetes, history of breast cancer, GERD, anxiety and depression, comes into the emergency room with abdominal pain. No hemoptysis or hematemesis. No hematuria. She is constipated. She is sleepy, arousable. Seen by Cardiology. Has some cough and shortness of breath. No nausea. No dysuria. No leg pain or leg swelling. PAST MEDICAL HISTORY: As per history of present illness. FAMILY HISTORY: No significant cardiopulmonary disease reported. SOCIAL HISTORY: She is a smoker. Denies any alcohol use. ALLERGIES: CIPRO, NAPROXEN AND ADHESIVE TAPES. MEDICATIONS: She is on Coreg 3.125 mg twice a day and Coumadin 3 mg daily. Her lactulose, digoxin, Lasix, Pepcid, and lisinopril were placed on hold. Patient refused to take medications. REVIEW OF SYSTEMS: No headache, no rhinitis. Has cough and shortness of breath. No chest pain. No nausea. Mild abdominal discomfort. Does have leg swelling. PHYSICAL EXAMINATION GENERAL: Lying in the bed, sleepy and arousable. VITAL SIGNS: Temperature is 98, heart rate is 80, respiratory rate is 18, blood pressure 97/62, and pulse ox 99% on room air. HEENT: Small oral cavity. Crowded airway. NECK: Supple. No JVD. CARDIOPULMONARY: S1 and S2. LUNGS: Has fair airflow with a few rhonchi. ABDOMEN: Positive bowel sounds. Mild ascites. EXTREMITIES: Does have edema. NEUROLOGICAL: Sleepy and arousable. Follow simple words. LABORATORY DATA: Shows hemoglobin 12.4, hematocrit 41.2, WBC is 3.7 and platelet count is 184. INR 1.84. Sodium 139, potassium 4.0, chloride 100, bicarbonate 29, BUN 23, creatinine 1.0, glucose 135, calcium is 8.2, phosphorus is 3.8, and magnesium is 1.8. TSH is 10. Her chest x-ray was done on admission, which shows moderate cardiomegaly. No interval changes. Has an aortic ultrasound done, shows 1.1 x 3 x 6 cm distal infrarenal abdominal aortic aneurysm. Abdominal ultrasound shows suggestion of cholecystectomy. There is [id number] abdominal ascites and nodular hepatic counter. IMPRESSION AND PLAN: Chronic lung disease, cardiomyopathy, atrial fibrillation, diabetes, hypertension, abdominal aortic aneurysm, and coronary artery disease. We will continue to encourage to take by mouth medication, keep at 45 degree; inhale bronchodilator, respiratory precaution, dysphagia evaluation. Follow up labs in the morning. Thank you and we will follow up with you. Patient asked to stop smoking. Tonia Amaya MD
[2017-01-07] MEDS: Digoxin 250 mcg (0.25 mg) Tab PO SCH (13:06)
--- NOTE | 2017-01-07 23:30 | PN ---
PULMONARY PROGRESS NOTE DATE: 01/07/2017 REFERRING PHYSICIAN: Paula Boles MD SUBJECTIVE: She is lying in the bed, sleepy and arousable. Mild cough. No sputum production. No hemoptysis. No hematemesis. No hematuria. No diarrhea reported. PHYSICAL EXAMINATION GENERAL: No acute distress. VITAL SIGNS: Temperature is 98, heart rate 80, respiratory rate is 20, blood pressure 101/66 and pulse oximetry 94% on room air. HEENT: Moist mucous membrane. Small oral cavity. NECK: Supple. No JVD. LUNGS: Has a scattered rhonchi. HEART: S1 and S2 heard. ABDOMEN: Soft, nontender and nondistended. EXTREMITIES: No edema. NEUROLOGIC: Awake, alert and follows simple commands, but goes back to sleep. MEDICATIONS: She is on Coreg 3.125 mg twice a day, Coumadin 3 mg given, lactulose 30 g daily, digoxin 0.25 mg daily, Lasix 40 mg twice a day, Pepcid 40 mg daily, Xopenex inhale q. 8 hours and Zestril 2.5 mg daily. LABORATORY DATA: Shows INR 1.86. Sodium 138, potassium 3.7, chloride 99, bicarbonate 33, BUN 25, creatinine 0.8, glucose 124 and calcium is 8.3. AST 28, ALT 35, alk phos is 138, albumin is 3.1. TSH 10.1. IMPRESSION AND PLAN: Chronic obstructive lung disease, cardiomyopathy, atrial fibrillation, diabetes, hypertension, aortic aneurysm, coronary artery disease. Pulmonary point of view, doing okay. Continue bronchodilator. Keep head 45 degrees, diuretics, gastric prophylaxis. Sequential compression device to lower extremity. Spoke to nursing staff. Thank you and we will follow with you. Tonia Amaya MD
--- NOTE | 2017-01-08 04:00 | PN ---
DATE: 01/07/2017 SUBJECTIVE: The patient was seen and examined on 01/07/2017. Sleepy and arousable. Mild coughing . Mild shortness of breath. No fever. No chills. No hematemesis. No hematuria or hematochezia. No diarrhea. No constipation. PHYSICAL EXAMINATION: VITAL SIGNS: Temperature 98, heart rate 80, respiratory rate 20, blood pressure 101/66, and pulse oximetry 97% on room air. HEENT: Head; normocephalic and atraumatic. Eyes; PERRLA. Extraocular muscles intact. Conjunctivae clear. Nose patent. Mucous membrane moist. NECK: Supple. No carotid bruit. No JVD or thyromegaly. CHEST: Bilaterally symmetrical. HEART: S1 and S2 positive. LUNGS: Clear to auscultation. ABDOMEN: Soft. Bowel sounds present. No organomegaly. EXTREMITIES: No edema. No cyanosis. NEUROLOGICAL: The patient is sleepy. Moving all 4 extremities. No focal deficits. MEDICATIONS: Coreg, Coumadin, lactulose, digoxin, Lasix, Pepcid, Xopenex, and Zestril. LABORATORY DATA: INR 1.86. Sodium 138, potassium 3.7, BUN 27, creatinine 0.8, glucose 124, and calcium 8.3. AST 28 and ALT 35. TSH 10.01. ASSESSMENT AND PLAN: Ms. Chasidy Alicia is a 71-year-old lady with hypothyroidism, not very well controlled, chronic obstructive lung disease, cardiomyopathy, atrial fibrillation, diabetes, hypertension, aortic aneurysm, and coronary artery disease. Continue bronchodilators. Head elevated at 45 degrees. Diuretics and gastric prophylaxis. The patient looks like she does not take care of herself, she need family's help, and this week when family is away, they are trying to get TCU. We will follow up. Paula Boles MD
[2017-01-08 07:43] LABS: INR 1.95 (0.93-1.08)
[2017-01-08 07:47] LABS: BLOOD UREA NITROGEN 26 mg/dL (7-21); CALCIUM 8.2 mg/dL (8.4-10.5); CARBON DIOXIDE 31 mmol/L (21-33); CHLORIDE 98 mmol/L (98-107); GFR AFRICAN-AMERICAN > 60; GLUCOSE,RANDOM 130 mg/dL (70-110); POTASSIUM 4.1 mmol/L (3.6-5.0); SODIUM 137 mmol/L (132-148)
[2017-01-08] MEDS: Levalbuterol 0.63 MG/3 ML Inhal Soln UD IH SCH ×3 (08:18→20:53)
[2017-01-08] MEDS: Digoxin 250 mcg (0.25 mg) Tab PO SCH (14:34)
--- NOTE | 2017-01-09 03:32 | PN ---
DATE: 01/08/2017 PULMONARY PROGRESS NOTE REFERRING PHYSICIAN: Dr. Boles. SUBJECTIVE: This is sleepy, arousable with mild cough. No headache. No rhinitis. No nausea. No vomiting. No abdominal pain, has leg swelling. OBJECTIVE: GENERAL: In no acute distress. VITAL SIGNS: Temperature 98, heart rate is 80, respiratory rate is 18, blood pressure 94/60, pulse ox 93% on room air. HEENT: Small oral cavity. NECK: Supple. No JVD. LUNGS: Has scattered rhonchi. HEART: S1 and S2. ABDOMEN: Soft, nontender, has some ascites. EXTREMITIES: Does have edema. NEUROLOGICAL: Sleep, arousable, follows simple commands. MEDICATIONS: She is on Coreg 3.125 mg twice a day, Coumadin 3 mg received today, Lactulose 30 g daily, digoxin 0.25 mg daily, Lasix 40 mg twice a day, Pepcid 40 mg daily, Xopenex inhale 3 times a day, Zestril 2.5 mg daily. LABORATORY DATA: Shows INR 1.95, sodium 137, potassium 4.1, chloride 98, bicarbonate is 31, BUN 26, creatinine 1.0, glucose 130, calcium is 8.2, AST 28, ALT 35, alkaline phosphatase is 138, albumin is 3.1. TSH is 10.1. IMPRESSION AND PLAN: Chronic obstructive lung disease, cardiomyopathy, atrial fibrillation, diabetes, hypertension, aortic aneurysm, coronary artery disease, dysfunction. Pulmonary point of view, keep head 45 degrees, bronchodilator, diuretics, gastric prophylaxis, fall precautions over bed to chair, will benefit long-term therapy. Tonia Amaya MD
[2017-01-09 06:43] LABS: INR 1.85 (0.93-1.08)
[2017-01-09] MEDS: Levalbuterol 0.63 MG/3 ML Inhal Soln UD IH SCH ×3 (07:43→19:28)
--- NOTE | 2017-01-09 11:49 | PN ---
DATE: 01/08/2017 SUBJECTIVE: The patient is a 71-year-old female. The patient was seen and examined on the bedside. Looking comfortable, sleepy, arousable. No complaints. No fever. No chills. No headache. No dizziness. No chest pain. PHYSICAL EXAMINATION VITAL SIGNS: Temperature 97.8, pulse 80, blood pressure 94/50, and respiratory rate 18. HEENT: Head is normocephalic and atraumatic. Eyes; PERRLA. Extraocular muscles are intact. Conjunctivae clear. Nose patent. Mucous membranes moist. NECK: Supple. No carotid bruits, JVD, or thyromegaly. CHEST: Bilaterally symmetrical. HEART: S1 and S2 positive. LUNGS: Clear to auscultation. ABDOMEN: Soft. Bowel sounds present. No organomegaly. EXTREMITIES: No edema. No cyanosis. NEUROLOGIC: The patient is awake and alert. Moving all four extremities. No focal deficits. MEDICATIONS: Coreg, Coumadin, lactulose, digoxin, Lasix, Pepcid, Xopenex, and lisinopril. LABORATORY DATA: We do not have recent lab today, but I reviewed old labs. ASSESSMENT AND PLAN: Ms. Chasidy Alicia is a 71-year-old lady with leukopenia, increased BUN, hypoglycemia, hypocalcemia. INR is 1.95 therapeutic. Seen by Industrial Insulator and Rate Clerk. History of chronic obstructive lung disease, cardiomyopathy, atrial fibrillation on Coumadin, hypertension, aortic aneurysm, coronary artery disease. Continue bronchodilators, gastric prophylaxis, sequential compression devices to the lower extremity. Length of time discussion done with the patient's grandson. Plan was to discharge the patient home, but according to grandson, he is not able to receive his grandmother today. Tomorrow, Dr. Garcia Valdez is coming back and may be he will make a decision and I have discussion done with the grandson about the long-term replacement also, he said he will talk to the Social Workers tomorrow. We will follow up. Paula Boles MD
--- NOTE | 2017-01-09 17:32 | CP.PCM.PN ---
Subjective - Date & Time of Evaluation Date of Evaluation: 01/09/17 Time of Evaluation: 16:15 - Subjective Subjective: resting comfortably, denies chest pain, no shortness of breath Objective - Vital Signs/Intake and Output Vital Signs (last 24 hours): Temp Pulse Resp BP Pulse Ox 97.3 F L 81 20 110/80 97 01/09/17 16:00 01/09/17 16:00 01/09/17 16:00 01/09/17 16:00 01/09/17 16:00 Intake and Output: 01/09/17 01/09/17 06:59 18:59 Intake Total 300 840 Balance 300 840 - Medications Medications: Current Medications Carvedilol (Coreg) 3.125 mg PO BID [facility] Last Admin: 01/09/17 10:01 Dose: Not Given Digoxin (Lanoxin) 0.25 mg PO 1400 [facility] Last Admin: 01/08/17 14:34 Dose: 0.25 mg Famotidine (Pepcid) 40 mg PO HS [facility] Last Admin: 01/08/17 22:22 Dose: 40 mg Furosemide (Lasix) 40 mg PO BID [facility] Last Admin: 01/09/17 10:02 Dose: 40 mg Lactulose (Enulose) 30 gm PO DAILY [facility] Last Admin: 01/09/17 10:02 Dose: 30 gm Levalbuterol HCl (Xopenex) 0.63 mg IH TIDRESP [facility] Last Admin: 01/09/17 13:41 Dose: 0.63 mg Lisinopril (Zestril) 2.5 mg PO DAILY [facility] Last Admin: 01/09/17 10:01 Dose: Not Given Warfarin Sodium (Coumadin) 3 mg PO 1800 [facility] PRN Reason: Protocol Warfarin Sodium (Coumadin) 4 mg PO ONCE ONE PRN Reason: Protocol Stop: 01/09/17 18:01 - Labs Labs: 01/06/17 05:20 01/08/17 07:20 PT 20.6 SECONDS (9.4-12.5) H 01/09/17 05:15 INR 1.85 (0.93-1.08) H 01/09/17 05:15 APTT 37.2 Seconds (25.1-36.5) H 01/04/17 12:03 - Respiratory Exam Respiratory Exam: Clear to Ausculation Bilateral - Cardiovascular Exam Cardiovascular Exam: REGULAR RHYTHM - GI/Abdominal Exam GI & Abdominal Exam: Soft, Normal Bowel Sounds - Extremities Exam Extremities Exam: Normal Inspection - Neurological Exam Neurological Exam: Alert, Awake - Skin Skin Exam: Dry, Warm Assessment and Plan (1) CHF (congestive heart failure) Status: Chronic (2) COPD (chronic obstructive pulmonary disease) Status: Chronic (3) Cardiomyopathy Status: Chronic (4) Type II diabetes mellitus Status: Chronic - Assessment and Plan (Free Text) Plan: discussed [facility] placement with patient as family is unable to care for her at home
[2017-01-09] MEDS: Digoxin 250 mcg (0.25 mg) Tab PO SCH (17:35)
--- NOTE | 2017-01-09 19:09 | PN ---
DATE: 01/09/2017 REASON FOR CONSULTATION AND FOLLOWUP: Abdominal pain, shortness of breath, decompensated congestive heart failure, acute on chronic systolic dysfunction secondary to cardiomyopathy. SUBJECTIVE: The patient is lying in the bed flat, not in apparent distress, on IV Lasix. PHYSICAL EXAMINATION: As follows; VITAL SIGNS: Temperature afebrile, heart rate 50, and blood pressure 100/76. HEENT: PERRLA. Extraocular muscles intact. NECK: Supple. No carotid bruit or thyromegaly. CHEST: Clear to auscultation. HEART: S1, S2 regular. ABDOMEN: Soft. EXTREMITIES: Clubbing and cyanosis negative. LABORATORY DATA: Blood workup as follows; WBC 3.7, hemoglobin 12.3, hematocrit 41.2 and platelet count 184. Chemistry shows sodium 134, potassium 4.1, chloride , carbon dioxide 31, anion gap of 12, BUN 26, creatinine 1.0. IMPRESSION: Acute decompensated congestive heart failure, acute on chronic systolic dysfunction, cardiomyopathy, recurrent ascites secondary to congestive heart failure, status post multiple abdominal paracenteses, chronic atrial fibrillation, hypertension, hyperlipidemia, history of extensive coronary artery disease, noncompliance with medication. Lot of social issues. Recurrent admissions because of the social issues also involved. INR today is 1.85. RECOMMENDATIONS: Continue Coreg. Continue digoxin 0.25. Continue Lasix b.i.d. Continue lisinopril. We will give 4 mg of Coumadin today and 3 mg from tomorrow. PT and INR daily. We will give extra today. Thank you Dr. Valdez/Dr. Boles for providing us the opportunity in taking care of the patient, Chasidy Alicia. Tonia Quinteros MD
--- NOTE | 2017-01-09 21:10 | PN ---
PULMONARY PROGRESS NOTE DATE: 01/09/2017 REFERRING PHYSICIAN: Dr. Valdez. SUBJECTIVE: She is out of bed to chair. Feels much better. Decreased cough. Decreased shortness of breath. No nausea. No abdominal pain. Has trace leg swelling. PHYSICAL EXAMINATION GENERAL: No acute distress. VITAL SIGNS: Temperature 98, heart rate is 81, respiratory rate is 20, blood pressure 110/80 and pulse oximetry 97% on room air. HEENT: Moist mucous membrane. Crowded airway. NECK: Supple. No JVD. LUNGS: Has a few scattered rhonchi at the bases. HEART: S1 and S2. ABDOMEN: Soft, nontender and nondistended. Has some ascites. EXTREMITIES: Does have some edema. NEUROLOGIC: Awake, alert and follow simple commands. MEDICATIONS: She is on Coreg 3.125 mg twice a day, Coumadin 3 mg, will be given lactulose daily, digoxin 0.25 mg daily, Lasix 40 mg twice a day, Pepcid 40 mg daily, Xopenex inhale 3 times a day and Zestril 2.5 mg daily. LABORATORY DATA: Shows INR 1.85. IMPRESSION AND PLAN: Chronic obstructive lung disease, cardiomyopathy, atrial fibrillation, diabetes, hypertension, aortic aneurysm, and coronary artery disease. Activities of daily living dysfunction. Pulmonary point of view, she is doing okay. Aspiration precaution. Continue gastric prophylaxis and sequential compressive devices to lower extremity. Continue diuretics, anticoagulation. Follow up INR in the morning. Thank you and we will follow with you. Tonia Amaya MD
[2017-01-10 07:34] LABS: INR 1.61 (0.93-1.08)
[2017-01-10] MEDS: Levalbuterol 0.63 MG/3 ML Inhal Soln UD IH SCH ×3 (08:29→20:30)
--- NOTE | 2017-01-10 11:01 | US ---
PROCEDURE: Lower extremity ABIEL exam HISTORY: Peripheral vascular disease with ischemia. Smoker. Diabetes. PHYSICIAN(S): Yaw Leonard MD. FINDINGS: The resting ABIEL's are normal: right, 1.16and left, 1.11. Comparing with the distal waveforms, however, the resting ABIs are falsely elevated due to calcified vessels. The brachial systolic pressures are symmetric. The high thigh PVR waveforms and pressures are unremarkable. The calf PVR waveforms are relatively normal and symmetric. The ankle and metatarsal waveforms are moderately blunted and symmetric. The findings are consistent with bilateral tibial disease IMPRESSION: 1. Limited study due to noncompliant vessels. 2. Bilateral tibial disease.
--- NOTE | 2017-01-10 11:09 | PN ---
DATE: 01/10/2017 REASON FOR CONSULTATION AND FOLLOWUP: Abdominal pain, shortness of breath, decompensated congestive heart failure, [id number] systolic dysfunction secondary to cardiomyopathy. SUBJECTIVE: The patient is sitting in the chair in the hallway. Denies any chest pain, shortness of breath, or any palpitations. OBJECTIVE: GENERAL: Not in apparent distress. VITAL SIGNS: Temperature afebrile, heart rate 80, blood pressure 118/80. HEENT: PERRLA. Extraocular muscles intact. NECK: Supple. No carotid bruit or thyromegaly. CHEST: Clear to auscultation. HEART: S1, S2 regular. ABDOMEN: Soft. EXTREMITIES: Clubbing and cyanosis negative. LABORATORY DATA: Blood workup as follows: WBC 3.7, hemoglobin 12.0, hematocrit 41.2, platelet count 184. Chemistry shows sodium 137, potassium 4.1, chloride 98, carbon dioxide 31, anion gap of 12, BUN 26, creatinine 1.0. IMPRESSION: Acute decompensated congestive heart failure, [id number] secondary to systolic dysfunction; ischemic cardiomyopathy; chronic atrial fibrillation; hypertension; coronary artery disease; diabetes; hyperlipidemia; congestive heart failure secondary to cardiomyopathy, ischemic. RECOMMENDATIONS: Continue anticoagulation. Goal is to keep INR between 2. INR today is 1.6 at the lower, so we will give Coumadin 5 mg today, and then start 3 from tomorrow. Continue digoxin. Continue Lasix. Continue lisinopril. Continue Coreg. DuoNeb if needed. We will follow with you. Thank you Dr. Valdez for providing us the opportunity in taking care of the patient, Chasidy Alicia. Tonia Quinteros MD
[2017-01-10] MEDS: Digoxin 250 mcg (0.25 mg) Tab PO SCH (14:36)
--- NOTE | 2017-01-10 18:43 | CP.PCM.PN ---
Subjective - Date & Time of Evaluation Date of Evaluation: 01/10/17 Time of Evaluation: 08:45 - Subjective Subjective: denies chest pain, no SOB, OOB ambulating independently Objective - Vital Signs/Intake and Output Vital Signs (last 24 hours): Temp Pulse Resp BP Pulse Ox 97.6 F 74 20 100/70 99 01/10/17 08:24 01/10/17 18:06 01/10/17 08:24 01/10/17 18:19 01/10/17 06:00 Intake and Output: 01/10/17 01/10/17 06:59 18:59 Intake Total 540 Balance 540 - Medications Medications: Current Medications Carvedilol (Coreg) 3.125 mg PO BID [facility] Last Admin: 01/10/17 18:06 Dose: Not Given Digoxin (Lanoxin) 0.25 mg PO 1400 [facility] Last Admin: 01/10/17 14:36 Dose: 0.25 mg Famotidine (Pepcid) 40 mg PO HS [facility] Last Admin: 01/09/17 21:37 Dose: 40 mg Furosemide (Lasix) 40 mg PO BID [facility] Last Admin: 01/10/17 18:19 Dose: 40 mg Lactulose (Enulose) 30 gm PO DAILY [facility] Last Admin: 01/10/17 11:05 Dose: 30 gm Levalbuterol HCl (Xopenex) 0.63 mg IH TIDRESP [facility] Last Admin: 01/10/17 13:58 Dose: 0.63 mg Lisinopril (Zestril) 2.5 mg PO DAILY [facility] Last Admin: 01/10/17 11:07 Dose: 2.5 mg Warfarin Sodium (Coumadin) 3 mg PO 1800 [facility] PRN Reason: Protocol - Labs Labs: 01/06/17 05:20 01/08/17 07:20 PT 17.9 SECONDS (9.4-12.5) H 01/10/17 06:30 INR 1.61 (0.93-1.08) H 01/10/17 06:30 APTT 37.2 Seconds (25.1-36.5) H 01/04/17 12:03 - Respiratory Exam Respiratory Exam: Clear to Ausculation Bilateral, NORMAL BREATHING PATTERN - Cardiovascular Exam Cardiovascular Exam: REGULAR RHYTHM - GI/Abdominal Exam GI & Abdominal Exam: Soft, Normal Bowel Sounds - Extremities Exam Extremities Exam: Normal Inspection - Neurological Exam Neurological Exam: Alert, Awake - Skin Skin Exam: Dry, Warm Assessment and Plan (1) CHF (congestive heart failure) Status: Chronic (2) COPD (chronic obstructive pulmonary disease) Status: Chronic (3) Cardiomyopathy Status: Chronic (4) Type II diabetes mellitus Status: Chronic - Assessment and Plan (Free Text) Plan: social work for disposition, patient adamantly refusing fdc placement, family refusing to care for her at home
--- NOTE | 2017-01-11 02:53 | PN ---
DATE: 01/10/2017 PULMONARY PROGRESS NOTE REFERRING PHYSICIAN: Dr. Valdez. SUBJECTIVE: She is just getting back in the bed, was sitting up. Night was unremarkable. No headache. No rhinitis. Does have occasional cough. No nausea, no vomiting. Has some ascites and leg swelling. OBJECTIVE: VITAL SIGNS: Temperature is 98, heart rate 74, respiratory rate is 20, blood pressure 100/70, pulse oximetry of 96% on 2 L nasal cannula. HEENT: Moist mucous membranes. No ulcer or thrush noted. NECK: Supple. No JVD. LUNGS: Has a few scattered rhonchi. HEART: S1 and S2. ABDOMEN: Positive bowel sounds. Soft. Mild ascites. EXTREMITIES: Does have edema. NEUROLOGIC: Awake, alert and follows simple command. MEDICATIONS: She is on Coreg 3.125 mg twice a day; Coumadin 3 mg daily; lactulose 30 g daily; digoxin 0.25 mg daily; Lasix 40 mg twice a day; Pepcid 40 mg daily; Xopenex inhaler twice a day; Zestril 2.5 mg daily. LABORATORY DATA: Shows INR today of 1.61. Sodium 137, potassium 4.1, chloride 98, bicarbonate 31, BUN 26, creatinine 1.0, glucose 130, calcium 8.2. IMPRESSION AND PLAN: Chronic obstructive lung disease; cardiomyopathy; atrial fibrillation; diabetes; hypertension; aortic aneurysm; coronary artery disease; activities of daily living dysfunction. Pulmonary point of view, she is doing okay. Continue bronchodilator. Keep head 45 degrees. Gastric prophylaxis, diuretics, anticoagulation. Keep INR around 2.5. Will benefit from therapy. Thank you and we will follow with you. Tonia Amaya MD
[2017-01-11 06:39] LABS: MEAN CELL VOLUME 85.2 fl (80.0-105.0); MEAN CORPUSCULAR HEMOGLOBIN 25.8 pg (25.0-35.0); MEAN CORPUSCULAR HGB CONC 30.2 g/dl (31.0-37.0); RED CELL DISTRIBUTION WIDTH 16.1 % (11.5-14.5); WHITE BLOOD COUNT 4.4 10^3/ul (4.5-11.0)
[2017-01-11 06:54] LABS: INR 1.88 (0.93-1.08)
[2017-01-11 06:56] LABS: ALB/GLOB RATIO 0.9 (1.1-1.8); ALKALINE PHOSPHATASE 159 U/L (38-126); ALT/SGPT 24 U/L (7-56); AST/SGOT 36 U/L (14-36); BILIRUBIN,TOTAL 0.7 mg/dL (0.2-1.3); BLOOD UREA NITROGEN 27 mg/dL (7-21); CALCIUM 8.2 mg/dL (8.4-10.5); CARBON DIOXIDE 31 mmol/L (21-33); CHLORIDE 99 mmol/L (98-107); GFR AFRICAN-AMERICAN > 60; GLUCOSE,RANDOM 91 mg/dL (70-110); POTASSIUM 4.3 mmol/L (3.6-5.0); SODIUM 136 mmol/L (132-148); TOTAL PROTEIN 7.2 g/dL (5.8-8.3)
[2017-01-11] MEDS: Levalbuterol 0.63 MG/3 ML Inhal Soln UD IH SCH ×3 (08:28→20:15)
--- NOTE | 2017-01-11 13:26 | PN ---
DATE: 01/11/2017 REASON FOR CONSULTATION AND FOLLOWUP: Abdominal pain, shortness of breath, decompensated congestive heart failure, acute on chronic systolic dysfunction secondary to cardiomyopathy, recurrent ascites. SUBJECTIVE: The patient is lying in bed and denies any chest pain, shortness of breath or palpitation at present. PHYSICAL EXAMINATION: VITAL SIGNS: Blood pressure is 100/70, respirations are 20, pulse is 70 and temperature is 98.1. HEENT: Head is normocephalic. Eyes; pupils are normal. Conjunctivae are normal. Nose and throat are normal. NECK: JVP low. Carotids equal. THORAX: AP diameter normal. LUNGS: No significant rales. CARDIOVASCULAR: S1 and S2, pansystolic murmur grade III/, and no rub. ABDOMEN: Protuberant. Ascites present. Bowel sound is normal. EXTREMITIES: The patient has minimal edema on the legs. LABORATORY DATA: WBC of 4.4, hemoglobin of 12.4, hematocrit of 41.0, and platelets of 186. Sodium of 136, potassium of 4.3, BUN of 27, and creatinine of 0.9. Sugar of 91 and calcium of 8.2. AST and ALT are normal, and alkaline phosphatase of 159, and total protein normal. TSH of 10.10. DIAGNOSES: Recurrent ascites, acute decompensated congestive heart failure, acute on chronic left ventricular systolic dysfunction, ischemic cardiomyopathy, chronic atrial fibrillation, hypertension, coronary artery disease, diabetes, hyperlipidemia, and congestive heart failure. PLAN: The patient's prothrombin time today is 21.0 with INR of 1.88. The patient yesterday got warfarin 5 mg, but now she is back to 3 mg daily. In the past with the increased dose, the patient PT and INR had gone much higher than the therapeutic level, We will give 3 mg today and digoxin 0.025 daily, furosemide 40 mg b.i.d., lisinopril 2.5 mg daily, and carvedilol 3.125 b.i.d. We will follow with you. Tonia Roy MD
--- NOTE | 2017-01-11 14:34 | CP.PCM.PN ---
Subjective - Date & Time of Evaluation Date of Evaluation: 01/11/17 Time of Evaluation: 12:15 - Subjective Subjective: no acute distress, denies chest pain, no shortness of breath Objective - Vital Signs/Intake and Output Vital Signs (last 24 hours): Temp Pulse Resp BP Pulse Ox 98.1 F 70 20 113/72 98 01/11/17 06:00 01/11/17 06:00 01/11/17 06:00 01/11/17 10:46 01/11/17 06:00 Intake and Output: 01/11/17 01/11/17 06:59 18:59 Intake Total 360 120 Balance 360 120 - Medications Medications: Current Medications Carvedilol (Coreg) 3.125 mg PO BID [facility] Last Admin: 01/11/17 10:46 Dose: Not Given Digoxin (Lanoxin) 0.25 mg PO 1400 [facility] Last Admin: 01/10/17 14:36 Dose: 0.25 mg Famotidine (Pepcid) 40 mg PO HS [facility] Last Admin: 01/10/17 21:25 Dose: 40 mg Furosemide (Lasix) 40 mg PO BID [facility] Last Admin: 01/11/17 10:46 Dose: Not Given Lactulose (Enulose) 30 gm PO DAILY [facility] Last Admin: 01/11/17 10:50 Dose: Not Given Levalbuterol HCl (Xopenex) 0.63 mg IH TIDRESP [facility] Last Admin: 01/11/17 13:31 Dose: 0.63 mg Lisinopril (Zestril) 2.5 mg PO DAILY [facility] Last Admin: 01/11/17 10:46 Dose: Not Given Warfarin Sodium (Coumadin) 3 mg PO 1800 [facility] PRN Reason: Protocol - Labs Labs: 01/11/17 06:00 01/11/17 06:00 PT 21.0 SECONDS (9.4-12.5) H 01/11/17 06:00 INR 1.88 (0.93-1.08) H 01/11/17 06:00 APTT 37.2 Seconds (25.1-36.5) H 01/04/17 12:03 - Respiratory Exam Respiratory Exam: Clear to Ausculation Bilateral, NORMAL BREATHING PATTERN - Cardiovascular Exam Cardiovascular Exam: REGULAR RHYTHM, Murmur - GI/Abdominal Exam GI & Abdominal Exam: Soft, Normal Bowel Sounds - Extremities Exam Extremities Exam: Normal Inspection - Neurological Exam Neurological Exam: Alert, Awake - Skin Skin Exam: Dry, Warm Assessment and Plan (1) CHF (congestive heart failure) Status: Chronic (2) COPD (chronic obstructive pulmonary disease) Status: Chronic (3) Cardiomyopathy Status: Chronic (4) Type II diabetes mellitus Status: Chronic - Assessment and Plan (Free Text) Plan: social work for discharge planning, possible subacute rehab
[2017-01-11 16:56] VITALS: PULSE 81
[2017-01-11] MEDS: Digoxin 250 mcg (0.25 mg) Tab PO SCH (17:39)
--- NOTE | 2017-01-12 04:13 | PN ---
DATE: 01/11/2017 PULMONARY PROGRESS NOTE REFERRING PHYSICIAN: Dr. Valdez. SUBJECTIVE: She is lying in the bed, head at 45 degrees. Night was unremarkable. Sleepy, arousable, gets short of breath with minimal exertion. No chest pain. No nausea. No vomiting. Does have ascites and leg swelling. OBJECTIVE: GENERAL: In no acute distress. VITAL SIGNS: Temperature 98, heart is 81, respiratory rate 18, blood pressure 101/67, pulse ox 95% on room air. HEENT: Moist mucous membranes. Small oral cavity. NECK: Supple. No JVD. LUNGS: Fair airflow with few rhonchi. HEART: S1 and S2. ABDOMEN: Soft, mild tenderness and mild ascites. EXTREMITIES: Does have edema. NEUROLOGICAL: Sleepy, arousable, follows simple commands. MEDICATIONS: She is on Coreg 3.125 mg twice a day, Coumadin 3 mg daily, also getting digoxin 0.25 mg daily, Lasix 40 mg twice a day, Pepcid 40 mg daily, Xopenex inhaler q. 8 hours, Zestril 2.5 mg which was not given. LABORATORY DATA: Shows hemoglobin 12.4, hematocrit 41.0, WBC 4.4, platelet count is 186. INR 1.8, sodium 136, potassium 4.3, chloride 99, bicarbonate 31, BUN 27, creatinine 0.9, glucose 91, calcium 8.2, AST 36, ALT 24, alkaline phosphatase 159, albumin is 3.4. IMPRESSION AND PLAN: Chronic obstructive lung disease, cardiomyopathy, atrial fibrillation, diabetes, hypertension, aortic aneurysm, coronary artery disease, activities of daily living dysfunction. Pulmonary point of view, doing okay. Keep head at 45 degrees, bronchodilator, aspiration precaution, continue diuretics, anticoagulation, fall precaution, follow up INR. Thank you and we will follow with you. Tonia Amaya MD
[2017-01-12 06:12] VITALS: BP 134/90; RESP 20; TEMP 97.6; O2SAT 97
[2017-01-12] MEDS: Levalbuterol 0.63 MG/3 ML Inhal Soln UD IH SCH ×2 (08:26→14:05)
--- NOTE | 2017-01-12 11:06 | CP.PCM.PN ---
Subjective - Date & Time of Evaluation Date of Evaluation: 01/12/17 Time of Evaluation: 10:15 - Subjective Subjective: resting comfortably, no chest pain, no shortness of breath Objective - Vital Signs/Intake and Output Vital Signs (last 24 hours): Temp Pulse Resp BP Pulse Ox 97.6 F 81 20 134/90 97 01/12/17 07:55 01/12/17 10:19 01/12/17 07:55 01/12/17 10:20 01/12/17 07:55 Intake and Output: 01/12/17 01/12/17 06:59 18:59 Intake Total 0 Balance 0 - Medications Medications: Current Medications Carvedilol (Coreg) 3.125 mg PO BID [facility] Last Admin: 01/12/17 10:19 Dose: 3.125 mg Digoxin (Lanoxin) 0.25 mg PO 1400 [facility] Last Admin: 01/11/17 17:39 Dose: 0.25 mg Famotidine (Pepcid) 40 mg PO HS [facility] Last Admin: 01/11/17 21:31 Dose: Not Given Furosemide (Lasix) 40 mg PO BID [facility] Last Admin: 01/12/17 10:20 Dose: Not Given Lactulose (Enulose) 30 gm PO DAILY [facility] Last Admin: 01/12/17 10:21 Dose: 30 gm Levalbuterol HCl (Xopenex) 0.63 mg IH TIDRESP [facility] Last Admin: 01/12/17 08:26 Dose: 0.63 mg Lisinopril (Zestril) 2.5 mg PO DAILY [facility] Last Admin: 01/12/17 10:19 Dose: 2.5 mg Warfarin Sodium (Coumadin) 3 mg PO 1800 [facility] PRN Reason: Protocol Last Admin: 01/11/17 17:39 Dose: 3 mg - Labs Labs: 01/11/17 06:00 01/11/17 06:00 PT 21.0 SECONDS (9.4-12.5) H 01/11/17 06:00 INR 1.88 (0.93-1.08) H 01/11/17 06:00 APTT 37.2 Seconds (25.1-36.5) H 01/04/17 12:03 - Respiratory Exam Respiratory Exam: Clear to Ausculation Bilateral, NORMAL BREATHING PATTERN - Cardiovascular Exam Cardiovascular Exam: REGULAR RHYTHM - GI/Abdominal Exam GI & Abdominal Exam: Soft, Normal Bowel Sounds - Extremities Exam Extremities Exam: Normal Inspection - Neurological Exam Neurological Exam: Alert, Awake - Skin Skin Exam: Dry, Warm Assessment and Plan (1) CHF (congestive heart failure) Status: Chronic (2) COPD (chronic obstructive pulmonary disease) Status: Chronic (3) Cardiomyopathy Status: Chronic (4) Type II diabetes mellitus Status: Chronic - Assessment and Plan (Free Text) Plan: social work for discharge planning
[2017-01-12] MEDS: Digoxin 250 mcg (0.25 mg) Tab PO SCH (13:56)
[2017-01-12 13:57] VITALS: PULSE 80
--- NOTE | 2017-01-12 20:59 | PN ---
DATE: 01/12/2017 LOCATION: The patient is in room 362, bed 2. REASON FOR CONSULTATION: Followup abdominal pain, shortness of breath, decompensated congestive heart failure, acute on chronic systolic dysfunction secondary to cardiomyopathy and recurrent ascites. SUBJECTIVE: The patient is denying any chest pain. Her breathing is stable. Denies any palpitation. The patient is lying in bed comfortably at present. PHYSICAL EXAMINATION: VITAL SIGNS: Blood pressure 134/90, respirations 18, pulse 81, temperature 97.6. HEENT: Head is normocephalic. Eyes; pupils are normal. Conjunctivae normal. NECK: JVP is low. Carotids are equal. THORAX: AP diameter normal. LUNGS: No rales. CARDIOVASCULAR: S1 and S2. Pansystolic murmur, grade 2/6. ABDOMEN: Protuberant with ascites present. EXTREMITIES: No clubbing. No cyanosis. LABORATORY DATA: WBC 4.4, hemoglobin 12.4, hematocrit 41.0, platelets 186. Sodium 136, potassium 4.3, BUN 27, creatinine 0.9, calcium 8.2. AST and ALT normal. Alkaline phosphatase 159. DIAGNOSES: Recurrent ascites, acute decompensated congestive heart failure, [id number] left ventricular systolic dysfunction, ischemic cardiomyopathy, chronic atrial fibrillation, hypertension, coronary artery disease, diabetes, hyperlipidemia, congestive heart failure status post automatic implantable cardioverter-defibrillator insertion. PLAN: We will continue present therapy and we will follow with you. Today's PT/INR is pending. Tonia Roy MD
== END 2017-01-12 16:58 | DRG 292 ==
LOC: ED 11:15 → ERH 23:47 → 3RNO 01-05 01:57 → OBSVTOIN 01-05 20:52 → 3RNO 01-06 15:35
PROVIDERS: ADMIT Internal Medicine; ATTEND Internal Medicine
DX: I11.0 Hypertensive heart disease with heart failure (principal); R18.8 Other ascites; I50.23 Acute on chronic systolic (congestive) heart failure; E11.65 Type 2 diabetes mellitus with hyperglycemia; E11.649 Type 2 diabetes mellitus with hypoglycemia without coma; I08.1 Rheumatic disorders of both mitral and tricuspid valves; E83.51 Hypocalcemia; I27.20 Pulmonary hypertension, unspecified; I25.5 Ischemic cardiomyopathy; I25.10 Atherosclerotic heart disease of native coronary artery without angina pectoris; I48.2 Chronic atrial fibrillation; F03.90 Unspecified dementia, unspecified severity, without behavioral disturbance, psychotic disturbance, mood disturbance, and anxiety; J44.9 Chronic obstructive pulmonary disease, unspecified; K59.00 Constipation, unspecified; K21.9 Gastro-esophageal reflux disease without esophagitis; H91.90 Unspecified hearing loss, unspecified ear; D64.9 Anemia, unspecified; M19.90 Unspecified osteoarthritis, unspecified site; F41.9 Anxiety disorder, unspecified; F32.9 Major depressive disorder, single episode, unspecified; F17.200 Nicotine dependence, unspecified, uncomplicated; I71.4 Abdominal aortic aneurysm, without rupture; K57.90 Diverticulosis of intestine, part unspecified, without perforation or abscess without bleeding; E78.00 Pure hypercholesterolemia, unspecified; Z86.73 Personal history of transient ischemic attack (TIA), and cerebral infarction without residual deficits; Z85.3 Personal history of malignant neoplasm of breast; Z95.5 Presence of coronary angioplasty implant and graft; I25.2 Old myocardial infarction; Z79.01 Long term (current) use of anticoagulants; Z91.14 Patient's other noncompliance with medication regimen

== ENCOUNTER 2017-01-27 06:09 | Inpatient (IN) | payer MEDICARE, OTHER ==
[2017-01-27 06:52] LABS: VENOUS BLOOD GAS BASE EXCESS -0.6 mmol/L (0.0-2.0); VENOUS BLOOD GAS PO2 31 mm/Hg (30-55); VENOUS BLOOD PH 7.28 (7.32-7.43)
[2017-01-27 06:55] LABS: BASO # 0.01 K/mm3 (0.0-2.0); BASO % 0.3 % (0.0-3.0); EOS % 0.3 % (1.5-5.0); GRAN # 2.84 (1.4-6.5); GRAN % 76.7 % (50.0-68.0); HEMOGLOBIN 13.2 g/dL (12.0-16.0); LYMPH # 0.5 (1.2-3.4); LYMPH % 12.4 % (22.0-35.0); MEAN CORPUSCULAR HEMOGLOBIN 25.8 pg (25.0-35.0); MEAN CORPUSCULAR HGB CONC 31.1 g/dl (31.0-37.0); MEAN PLATELET VOLUME 11.2 fl (7.0-11.0); MONO # 0.4 (0.1-0.6); MONO % 10.3 % (1.0-6.0); RBC 5.12 10^6/uL (3.5-6.1); WHITE BLOOD COUNT 3.7 10^3/ul (4.5-11.0)
[2017-01-27] MEDS ORDERED: Dextrose 50% SYRINGE Inj (50 ml) ONE (07:04)
[2017-01-27 07:06] LABS: PROTHROMBIN TIME 80.1 SECONDS (9.4-12.5)
[2017-01-27 07:08] LABS: PARTIAL THROMBOPLASTIN TIME 50.4 Seconds (25.1-36.5)
[2017-01-27 07:32] LABS: ALB/GLOB RATIO 0.7 (1.1-1.8); ALBUMIN 3.2 g/dL (3.0-4.8); CALCIUM 8.4 mg/dL (8.4-10.5); MAGNESIUM 2.3 mg/dL (1.7-2.2); TROPONIN I 0.29 ng/mL
[2017-01-27 07:34] LABS: PH,URINE 5.5 (4.7-8.0); URINE APPEARANCE TURBID (CLEAR); URINE BILIRUBIN SMALL (NEGATIVE); URINE BLOOD TRACE-INTACT (NEGATIVE); URINE COLOR YELLOW (YELLOW); URINE GLUCOSE (UA) NEGATIVE (NEGATIVE); URINE LEUKOCYTE ESTERASE SMALL Leu/uL (NEGATIVE); URINE NITRATE NEGATIVE (NEGATIVE); URINE PROTEIN TRACE mg/dL (<30 mg/dL)
[2017-01-27 08:02] LABS: URINE BACTERIA MANY (NEG); URINE WBC 25 - 30 /hpf (0-6)
[2017-01-27 08:03] LABS: URINE AMORPHOUS SEDIMENT FEW
--- NOTE | 2017-01-27 08:24 | CT ---
PROCEDURE: CT HEAD WITHOUT CONTRAST. HISTORY: AMS COMPARISON: 03/18/2016 TECHNIQUE: Axial computed tomography images were obtained through the head/brain without intravenous contrast. Radiation dose: Total exam DLP = 1852.86 mGy-cm. This CT exam was performed using one or more of the following dose reduction techniques: Automated exposure control, adjustment of the mA and/or kV according to patient size, and/or use of iterative reconstruction technique. FINDINGS: HEMORRHAGE: No intracranial hemorrhage. BRAIN: No mass effect or edema. Moderate age-appropriate diffuse atrophy. Moderate periventricular white matter lucency consistent with age related microvascular ischemic change. No evidence of acute infarct. VENTRICLES: Unremarkable. No hydrocephalus. CALVARIUM: Unremarkable. PARANASAL SINUSES: Unremarkable as visualized. No significant inflammatory changes. MASTOID AIR CELLS: Unremarkable as visualized. No inflammatory changes. Soft tissue density within the external auditory canal bilaterally consistent with cerumen. Please correlate with direct visual inspection. OTHER FINDINGS: None. IMPRESSION: No intracranial mass, hemorrhage or evidence of acute infarct. Age-appropriate involutional changes. No interval change from 03/18/2016.
--- NOTE | 2017-01-27 08:26 | RAD ---
HISTORY: Sepsis Patient COMPARISON: 01/04/2017 FINDINGS: LUNGS: No active pulmonary disease. PLEURA: No significant pleural effusion identified, no pneumothorax apparent. CARDIOVASCULAR: Mild cardiomegaly. Mitral valve replacement. AICD. OSSEOUS STRUCTURES: No significant abnormalities. VISUALIZED UPPER ABDOMEN: Normal. OTHER FINDINGS: None. IMPRESSION: No active disease.
--- NOTE | 2017-01-27 08:42 | ED PDOC ---
Arrival/HPI - General Historian: Patient, EMS - History of Present Illness Time/Duration: 24 hours - General Chief Complaint: Altered Mental Status Time Seen by Provider: 01/27/17 06:25 - History of Present Illness Narrative History of Present Illness (Text): 01/27/17 08:39 pt with ams, low blood sugar 26, dry cough. (Neno Lewis) Past Medical History - Provider Review Nursing Documentation Reviewed: Yes - Travel History Have you recently traveled outside [place] w/in the past 3 mons?: No - Infectious Disease Hx of Infectious Diseases: None - Tetanus Immunization Tetanus Immunization: Unknown - Reproductive Menopause: Yes - Cardiac Hx Congestive Heart Failure: Yes Hx Hypertension: Yes - Pulmonary Hx Chronic Obstructive Pulmonary Disease (COPD): Yes - Neurological Hx Neurological Disorder: Yes Hx Dementia: Yes Hx Transient Ischemic Attacks (TIA): Yes - HEENT Hx HEENT Disorder: Yes Hx Deafness: Yes (lime) - Renal Hx Renal Disorder: No - Endocrine/Metabolic Hx Diabetes Mellitus Type 2: Yes - Hematological/Oncological Hx Blood Disorders: Yes Hx Anemia: Yes Hx Cancer: Yes (breast ca) - Integumentary Hx Dermatological Disorder: Yes Other/Comment: MOTTLED LEGS AND ARMS.antoni lower legs/feet purplish in color - Musculoskeletal/Rheumatological Hx Falls: Yes Hx Unsteady Gait: Yes - Gastrointestinal Hx Gastrointestinal Disorders: Yes (ascites) Hx Diverticulitis: Yes Hx Gall Bladder Disease: Yes (cholecystectomy) Hx Gastroesophageal Reflux: Yes - Genitourinary/Gynecological Hx Genitourinary Disorders: Yes Hx Incontinence: Yes - Psychiatric Hx Psychophysiologic Disorder: Yes Hx Anxiety: Yes Hx Depression: Yes Hx Substance Use: No Other/Comment: dementia - Surgical History Hx Appendectomy: Yes Hx Cardiac Catheterization: Yes Hx Cholecystectomy: Yes Hx Coronary Stent: Yes Hx Mastectomy: Yes Hx Open Heart Surgery: Yes Hx Orthopedic Surgery: Yes (laminectomy) Other/Comment: Herniated disc repair, tonsilectomy - Anesthesia Hx Anesthesia: No - Suicidal Assessment Feels Threatened In Home Enviroment: No Family/Social History - Physician Review Nursing Documentation Reviewed: Yes Family/Social History: No Known Family HX Smoking Status: Former Smoker Hx Alcohol Use: No Hx Substance Use: No Hx Substance Use Treatment: No Allergies/Home Meds Allergies/Adverse Reactions: Allergies adhesive tape Allergy (Verified 01/27/17 06:22) REDNESS naproxen Allergy (Verified 01/27/17 06:22) VOMITING ciprofloxacin Adverse Reaction (Verified 01/27/17 06:22) ANAPHYLAXIS Home Medications: Home Meds Medication Instructions Recorded Confirmed Digoxin [Lanoxin] 250 mcg PO DAILY 12/30/16 01/27/17 Review of Systems - Review of Systems Constitutional: Normal Eyes: Normal ENT: Normal Respiratory: Normal Cardiovascular: Normal Gastrointestinal: Normal Genitourinary Female: Normal Musculoskeletal: Normal Skin: Skin Lesions Neurological: Other (confusion) Endocrine: Normal Hemo/Lymphatic: Normal Psychiatric: Normal Physical Exam - Physical Exam Physical Exam Limitations: Altered Mental Status Vital Signs Reviewed: Yes Temperature: Afebrile Blood Pressure: Normal Pulse: Regular Respiratory Rate: Normal Appearance: Positive for: Unkept Pain Distress: None Mental Status: Positive for: Confused Finger Stick Blood Glucose: 119 - Systems Exam Head: Present: Atraumatic, Normocephalic Pupils: Present: PERRL Extroacular Muscles: Present: EOMI Conjunctiva: Present: Normal Ears: Present: Normal Mouth: Present: Moist Mucous Membranes Pharnyx: Present: Normal Nose (External): Present: Atraumatic Nose (Internal): Present: Normal Inspection Neck: Present: Normal Range of Motion Respiratory/Chest: Present: Rhonchi Cardiovascular: Present: Regular Rate and Rhythm Abdomen: No: Tenderness, Distention, Normal Bowel Sounds, Peritoneal Signs, Rebound, Guarding, McBurney's Point Tender, Rovsing's Sign Present, Hernias, Feeding Tubes, Ostomy Tubes, Mass/Organomegaly, Scars, Other Back: Present: Normal Inspection Upper Extremity: Present: Other (scabbbing) Lower Extremity: Present: Other (scabbing) Neurological: Present: CN II-XII Intact, Speech Normal, Motor Func Grossly Intact, Other (confusion) Skin: Present: Other (scabbing) Psychiatric: Present: Other (confusion) Vital Signs Temp Pulse Resp BP Pulse Ox 01/27/17 07:00 97.2 F L 72 20 97/53 L 92 L Medical Decision Making - RAD Interpretation Motorcycle Repairer: Radiologist - EKG Interpretation Interpreted by ED Physician: Yes (electronically paced) Type: 12 lead EKG ED Course and Treatment: 01/27/17 08:47 confusion INR 7 Cr 2.9 acute lactic 2.8 no acute sign of infection cxr neg, ua trace le thus abx held and lactic related to hypoglycemia. dr. lawson to admit hypoglycemia refractor d-[address] head no acute CXR no acute 01/27/17 08:49 01/27/17 08:50 (Neno Lewis) - Lab Interpretations Lab Results: 01/27/17 06:30 01/27/17 06:30 Lab Results 01/27/17 07:47: POC Glucose (mg/dL) 119 H 01/27/17 07:07: Urine Color Yellow, Urine Appearance Turbid, Urine pH 5.5, Ur Specific Thompson >= 1.030, Urine Protein Trace H, Urine Glucose (UA) Negative, Urine Ketones Trace H, Urine Blood Trace-intact H, Urine Nitrate Negative, Urine Bilirubin Small H, Urine Urobilinogen 1.0 H, Ur Leukocyte Esterase Small H , Urine RBC 2 - 5, Urine WBC 25 - 30, Ur Epithelial Cells 10 - 12, Amorphous Sediment Few, Urine Bacteria Many 01/27/17 07:02: POC Glucose (mg/dL) 26 L* 01/27/17 06:30: Sodium 141, Chloride 101, Potassium 5.4 H, Carbon Dioxide 27, Anion Gap 18, BUN 74 H, Creatinine 2.9 H, Est GFR ( Amer) 19, Est GFR ( Non-Af Amer) 16, Random Glucose 134 H, Calcium 8.4, Phosphorus 6.0 H, Magnesium 2.3 H, Total Bilirubin 1.2, AST 842 H D, ALT 531 H, Alkaline Phosphatase 193 H D , Troponin I 0.29 H* D, NT-Pro-B Natriuret Pep 28881 H, Total Protein 7.5, Albumin 3.2, Globulin 4.3, Albumin/Globulin Ratio 0.7 L 01/27/17 06:30: pO2 31, VBG pH 7.28 L, VBG pCO2 58.0, VBG HCO3 27.3, VBG Total CO2 29.1 H, VBG O2 Sat (Calc) 56.1, VBG Base Excess -0.6 L, VBG Potassium 5.5 H , Sodium 137.0, Chloride 102.0, Glucose 135 H, Lactate 2.8 H, FiO2 21.0, Venous Blood Potassium 5.5 H 01/27/17 06:30: PT 80.1 H, INR 7.00 H*, APTT 50.4 H 01/27/17 06:30: WBC 3.7 L, RBC 5.12, Hgb 13.2, Hct 42.5, MCV 83.0, MCH 25.8, MCHC 31.1, RDW 17.0 H, Plt Count 164, MPV 11.2 H, Gran % 76.7 H, Lymph % (Auto) 12.4 L, Calhoun % (Auto) 10.3 H, Eos % (Auto) 0.3 L, Baso % (Auto) 0.3, Gran # 2.84 , Lymph # 0.5 L, Calhoun # 0.4, Eos # 0.0, Baso # 0.01 - RAD Interpretation Radiology Orders: 01/27/17 06:28 CHEST PORTABLE [RAD] Stat 01/27/17 06:32 HEAD W/O CONTRAST [CT] Stat Disposition/Present on Arrival - Present on Arrival Any Indicators Present on Arrival: No History of DVT/PE: No History of Uncontrolled Diabetes: No Urinary Catheter: No History of Decub. Ulcer: No History Surgical Site Infection Following: None - Disposition Have Diagnosis and Disposition been Completed?: Yes Disposition Time: 08:51 Patient Plan: Admission, Telemetry - Disposition Diagnosis: Altered awareness, transient, Hypoglycemia, Elevated INR, Renal insufficiency Disposition: HOSPITALIZED Condition: SERIOUS Referrals: Garcia Lawson JD, MD [Primary Care Provider] - Follow up with primary Forms: [employer] ([place])
--- NOTE | 2017-01-27 08:51 | ED PDOC ---
Physical Exam Vital Signs Reviewed: Yes Vital Signs Temp Pulse Resp BP Pulse Ox 01/27/17 10:00 98 F 80 20 96/52 L 95 01/27/17 07:00 97.2 F L 72 20 97/53 L 92 L Temperature: Hypothermic Blood Pressure: Hypotensive Pulse: Regular Respiratory Rate: Normal Appearance: Positive for: Well-Appearing, Non-Toxic, Comfortable Pain Distress: None Mental Status: Positive for: Alert and Oriented X 3 Finger Stick Blood Glucose: 119 Medical Decision Making ED Course and Treatment: 01/27/17 07:00 71 year old female patient is signed out to me by Dr. Lewis. Currently pending for CT and Chest X-ray results. The final disposition is to admit pt to PCP, who can receive pt at 8:30 AM. Discussed case with Dr. Corona Valdez at 8:41 AM who is aware of medical results and pt's current emergency department presentation. Dr. Valdez agrees with emergency department room care and is in agreement to withhold Aspirin due to elevated INR. Plan is to continue to monitor and agree with placing pt to telemetry bed. 01/27/17 09:17 Patient lab results show multiple abnormal electrolytes including elevated creatine, BNP, and troponin compared to baseline. 01/27/17 09:20 Chest X-ray: Creator : Yaw Vega MD COMPARISON: 01/04/2017 FINDINGS: LUNGS: No active pulmonary disease. PLEURA: No significant pleural effusion identified, no pneumothorax apparent. CARDIOVASCULAR: Mild cardiomegaly. Mitral valve replacement. AICD. OSSEOUS STRUCTURES: No significant abnormalities. VISUALIZED UPPER ABDOMEN: Normal. OTHER FINDINGS: None. IMPRESSION: No active disease. 01/27/17 09:[address]: Creator : Yaw Vega MD COMPARISON: 03/18/2016 FINDINGS: HEMORRHAGE: No intracranial hemorrhage. BRAIN: No mass effect or edema. Moderate age-appropriate diffuse atrophy. Moderate periventricular white matter lucency consistent with age related microvascular ischemic change. No evidence of acute infarct. VENTRICLES: Unremarkable. No hydrocephalus. CALVARIUM: Unremarkable. PARANASAL SINUSES:Unremarkable as visualized. No significant inflammatory changes. MASTOID AIR CELLS:Unremarkable as visualized. No inflammatory changes. Soft tissue density within the external auditory canal bilaterally consistent with cerumen. Please correlate with direct visual inspection. OTHER FINDINGS: None. IMPRESSION: No intracranial mass, hemorrhage or evidence of acute infarct. Age- appropriate involutional changes. No interval change from 03/18/2016. 01/28/17 09:23 pt/family are made aware of pt's medical results agrees with admission Reassessment Condition: Improving,but remains with symptoms - Lab Interpretations Microbiology Results: Microbiology Results 01/27/17 07:07 Urine,Catheterized Urine Culture - Preliminary Gram Negative [place] 01/27/17 07:00 Blood Blood Culture - Preliminary NO GROWTH AFTER 24 HOURS 01/27/17 06:30 Blood Blood Culture - Preliminary NO GROWTH AFTER 24 HOURS Lab Results: 01/27/17 06:30 01/27/17 06:30 Lab Results 01/27/17 07:47: POC Glucose (mg/dL) 119 H 01/27/17 07:07: Urine Color Yellow, Urine Appearance Turbid, Urine pH 5.5, Ur Specific [place] >= 1.030, Urine Protein Trace H, Urine Glucose (UA) Negative, Urine Ketones Trace H, Urine Blood Trace-intact H, Urine Nitrate Negative, Urine Bilirubin Small H, Urine Urobilinogen 1.0 H, Ur Leukocyte Esterase Small H , Urine RBC 2 - 5, Urine WBC 25 - 30, Ur Epithelial Cells 10 - 12, Amorphous Sediment Few, Urine Bacteria Many 01/27/17 07:02: POC Glucose (mg/dL) 26 L* 01/27/17 06:30: Procalcitonin 12.50 H 01/27/17 06:30: Sodium 141, Chloride 101, Potassium 5.4 H, Carbon Dioxide 27, Anion Gap 18, BUN 74 H, Creatinine 2.9 H, Est GFR ( Amer) 19, Est GFR ( Non-Af Amer) 16, Random Glucose 134 H, Calcium 8.4, Phosphorus 6.0 H, Magnesium 2.3 H, Total Bilirubin 1.2, AST 842 H D, ALT 531 H, Alkaline Phosphatase 193 H D , Troponin I 0.29 H* D, NT-Pro-B Natriuret Pep 99394 H, Total Protein 7.5, Albumin 3.2, Globulin 4.3, Albumin/Globulin Ratio 0.7 L 01/27/17 06:30: pO2 31, VBG pH 7.28 L, VBG pCO2 58.0, VBG HCO3 27.3, VBG Total CO2 29.1 H, VBG O2 Sat (Calc) 56.1, VBG Base Excess -0.6 L, VBG Potassium 5.5 H , Sodium 137.0, Chloride 102.0, Glucose 135 H, Lactate 2.8 H, FiO2 21.0, Venous Blood Potassium 5.5 H 01/27/17 06:30: PT 80.1 H, INR 7.00 H*, APTT 50.4 H 01/27/17 06:30: WBC 3.7 L, RBC 5.12, Hgb 13.2, Hct 42.5, MCV 83.0, MCH 25.8, MCHC 31.1, RDW 17.0 H, Plt Count 164, MPV 11.2 H, Gran % 76.7 H, Lymph % (Auto) 12.4 L, Ritchie % (Auto) 10.3 H, Eos % (Auto) 0.3 L, Baso % (Auto) 0.3, Gran # 2.84 , Lymph # 0.5 L, Ritchie # 0.4, Eos # 0.0, Baso # 0.01 - RAD Interpretation Radiology Orders: 01/27/17 06:28 CHEST PORTABLE [RAD] Stat 01/27/17 06:32 HEAD W/O CONTRAST [CT] Stat - Medication Orders Current Medication Orders: Digoxin (Lanoxin) 0.25 mg PO 1400 FARIHA Diphenhydramine HCl (Benadryl) 25 mg PO HS PRN PRN Reason: Insomnia Famotidine (Pepcid) 20 mg PO HS FARIHA Last Admin: 01/27/17 22:00 Dose: 20 mg Furosemide (Lasix) 80 mg IVP Q12 [facility] Last Admin: 01/27/17 22:00 Dose: 80 mg MAR Blood Pressure Document 01/27/17 22:00 [facility] (Rec: 01/28/17 08:15 [id number]) Blood Pressure Blood Pressure (100/60-150/90) 114/73 IVP Administration Document 01/27/17 22:00 [facility] (Rec: 01/28/17 08:15 [id number]) Charges for Administration # of IVP Administrations 1 Dobutamine HCl/Dextrose (Dobutamine/Dextrose 5% 500mg/250ml) 500 mg in 250 mls @ 10.818 mls/hr IV .Q23H7M PRN; Protocol; 5 MCG/KG/MIN PRN Reason: TITRATE PER PROTOCOL Last Admin: 01/27/17 11:33 Dose: 5 mcg/kg/min, 10.818 mls/hr eMAR Start Stop Document 01/27/17 11:33 (Rec: 01/27/17 11:38 [place] [id number]) Intravenous Solution Start Date 01/27/17 Start Time 11:38 MAR Pulse and Blood Pressure Document 01/27/17 11:33 (Rec: 01/27/17 11:38 [place] [id number]) Pulse Pulse Rate (60-90) 80 Blood Pressure Blood Pressure (100/60-150/90) 87/56 Titration Intervention Document 01/27/17 11:33 (Rec: 01/27/17 11:38 [place] [id number]) Titration Intake Waste Amount 0 Container Volume 250 Titration Dosing Titration Dose 5 IV Rate 10.818 Intake/Decrease Started Discontinued Medications Dobutamine HCl/Dextrose (Dobutamine/Dextrose 5% 500mg/250ml) 500 mg in 250 mls @ 4.327 mls/hr IV .Q24H PRN; Protocol; 2 MCG/KG/MIN PRN Reason: TITRATE PER PROTOCOL Phytonadione (Vitamin K Inj) 10 mg SC ONCE ONE Stop: 01/27/17 11:18 Last Admin: 01/27/17 11:46 Dose: 10 mg Subcutaneous Administrations Document 01/27/17 11:46 (Rec: 01/27/17 11:46 [place] [id number]) Injection Site MAR Injection Site Right Deltoid Charges for Administration # of Subcutaneous Administrations 1 - Scribe Statement The provider has reviewed the documentation as recorded by the Javier Thomas Provider Scribe Attestation: All medical record entries made by the Scribjovanny were at my direction and personally dictated by me. I have reviewed the chart and agree that the record accurately reflects my personal performance of the history, physical exam, medical decision making, and the department course for this patient. I have also personally directed, reviewed, and agree with the discharge instructions and disposition. Disposition/Present on Arrival - Present on Arrival Any Indicators Present on Arrival: No History of DVT/PE: No History of Uncontrolled Diabetes: No Urinary Catheter: No History of Decub. Ulcer: No History Surgical Site Infection Following: None - Disposition Have Diagnosis and Disposition been Completed?: Yes Diagnosis: Altered awareness, transient, Hypoglycemia, Elevated INR, Renal insufficiency Disposition: HOSPITALIZED Disposition Time: 08:30 Patient Plan: Telemetry Patient Problems: Current Active Problems Problem Status Onset Hypoglycemia Acute Altered awareness, transient Acute Elevated INR Acute Renal insufficiency Acute Condition: SERIOUS
[2017-01-27 10:20] LABS: VENOUS BLOOD GAS BASE EXCESS 2.4 mmol/L (0.0-2.0); VENOUS BLOOD GAS PO2 36 mm/Hg (30-55); VENOUS BLOOD PH 7.31 (7.32-7.43)
[2017-01-27] MEDS ORDERED: DOBUTamine 500mg/250ml D5W 500 MG/250 ML BAG IV PRN (10:55)
--- NOTE | 2017-01-27 11:11 | CP.PCM.PN ---
Subjective - Date & Time of Evaluation Date of Evaluation: 01/27/17 Time of Evaluation: 11:00 - Subjective Subjective: 1. CHF exacerbation 2. Hypoxia 3. Hypotension 4. Elevated Troponin Objective - Vital Signs/Intake and Output Vital Signs (last 24 hours): Temp Pulse Resp BP Pulse Ox 98 F 80 20 96/52 L 95 01/27/17 10:00 01/27/17 10:00 01/27/17 10:00 01/27/17 10:00 01/27/17 10:00 B/P-87/56 HR-80 Paced Resp-22 SPO2 unobtainable secondary to hypoxia - Medications Medications: Current Medications Famotidine (Pepcid) 40 mg PO HS FARIHA Dobutamine HCl/Dextrose (Dobutamine/Dextrose 5% 500mg/250ml) 500 mg in 250 mls @ 4.327 mls/hr IV .Q24H PRN; Protocol; 2 MCG/KG/MIN PRN Reason: TITRATE PER PROTOCOL Phytonadione (Vitamin K Tab) 2.5 mg PO STAT STA Stop: 01/27/17 10:46 - Labs Labs: PT 80.1 SECONDS (9.4-12.5) H 01/27/17 06:30 INR 7.00 (0.93-1.08) H* 01/27/17 06:30 APTT 50.4 Seconds (25.1-36.5) H 01/27/17 06:30 - Constitutional Appears: In Acute Distress, Chronically Ill - Head Exam Head Exam: ATRAUMATIC, NORMAL INSPECTION, NORMOCEPHALIC - Eye Exam Eye Exam: EOMI, PERRL Pupil Exam: NORMAL ACCOMODATION - Neck Exam Neck Exam: Full ROM, Normal Inspection - Respiratory Exam Respiratory Exam: Accessory Muscle Use, Decreased Breath Sounds, Prolonged Expiratory Phase, Rhonchi, Wheezes Additional comments: mild to moderate respiratory distress - Cardiovascular Exam Cardiovascular Exam: +S1, +S2 Additional comments: PACED WITH CAPTURE - GI/Abdominal Exam GI & Abdominal Exam: Firm, Tenderness, Hypoactive Bowel Sounds Additional comments: SEVER ACITES - Extremities Exam Extremities Exam: Full ROM Additional comments: CYANOTIC, COLD, ANTIONETTE/LE MOTTLED - Neurological Exam Neurological Exam: Awake, CN II-XII Intact, Oriented x3 Neuro motor strength exam: Left Upper Extremity: 4, Right Upper Extremity: 4, Left Lower Extremity: 4, Right Lower Extremity: 4 Additional comments: GENERALIZED WEAKNESS/ VERY LETHARGIC BUT RESPONDS TO VERBAL AND TACTILE STIMULI - Psychiatric Exam Psychiatric exam: Flat Affect - Skin Skin Exam: Cyanosis, Dry, Intact, Mottled Assessment and Plan - Assessment and Plan (Free Text) Assessment: 1. CHR EXACERBATION 2. HYPOXIA 3. HYPOTENSION 4. ELEVATED TROPONIN Plan: DOBUTAMINE 5MCG/KG/MIN STAT VITAMIN K 5MG X 1 DOSE [address] CHURCH PEPCID 20MG EVERY HS VS Q2HRS PRN X 3 TIMES I/O'S Q8HRS BED REST NRB UNTIL STABLIZED DR. CAREY CARDIOLOGY CONSULT DR. SIMON FOR PARACENTESIS CASE DISCUSSED WITH DR. CHURCH HE STATES THIS IS HER BASELINE POST DOBUTAMINE S/ S WILL RESOLVE THIS IS WHAT WORKS BEST FOR HER. WILL CONTINUE TO REEVALUATE PATIENT AND KEEP IN CLOSE COMMUNICATION WITH DR. CHURCH HE RECOMMENDED.
[2017-01-27] MEDS ORDERED: Phytonadione 10 mg/ml Inj (Adult) SC ONE (11:17)
[2017-01-27] MEDS: DOBUTamine 500mg/250ml D5W 500 MG/250 ML BAG IV PRN (11:33)
--- NOTE | 2017-01-27 12:41 | CARD ---
APPROVED REPORT EKG Measurement Heart [id number] <Conclusion> Electronic ventricular pacemaker: 100% V. Paced
[2017-01-27 17:01] LABS: ARTERIAL BLOOD GAS HCO3 23.1 mmol/L (21-28); ARTERIAL BLOOD GAS O2 SAT 99.5 % (95-98); ARTERIAL BLOOD GAS PCO2 34 mm/Hg (35-45); ARTERIAL BLOOD GAS PH 7.44 (7.35-7.45); ARTERIAL BLOOD GAS TCO2 24.1 mmol.L (22-28)
--- NOTE | 2017-01-27 17:55 | PCM.RRT ---
PSYCHOLOGICAL TESTS SALES AGENT Nurse Assessment - Situation Date: 01/27/17 Time PSYCHOLOGICAL TESTS SALES AGENT was called: 16:42 PSYCHOLOGICAL TESTS SALES AGENT Responder Arrival Time: 16:44 PSYCHOLOGICAL TESTS SALES AGENT Location:: [address] [place] [address] Room Number: [id number] PSYCHOLOGICAL TESTS SALES AGENT Reason for Call: O2 Saturation below 90% PSYCHOLOGICAL TESTS SALES AGENT Called By: RN - IV IV Inserted during PSYCHOLOGICAL TESTS SALES AGENT?: No - Respiratory Oxygen Delivery Method: CPap @%, Non Rebreather @% Oxygen Flow Rate: 15 Received Nebulizer Treatments:: No Was the Patient Ventilated with Bag/Mask 100% O2?: No Secretions Suctioned?: No Was the Patient Intubated?: No Was the Patient Placed on a Ventilator?: No - Diagnostic Test Ordered EKG: Yes Chest X-Ray: Yes CT Scan: No - Stat Labs Ordered PSYCHOLOGICAL TESTS SALES AGENT Stat Labs Ordered: ABG CPR started during PSYCHOLOGICAL TESTS SALES AGENT?: No - Vital Signs Vital Sign: Rapid Response Vital Sign Blood Pressure 93/55 Pulse Rate 81 Respiratory Rate 12 Temperature 97.4 F Oxygen Saturation 68 - Finger Stick Blood Glucose Finger Stick Blood Glucose: 128 - Sepsis Screen Part 1 Sepsis Screen Part 1: Skin Mottled - Time PSYCHOLOGICAL TESTS SALES AGENT Ended Time PSYCHOLOGICAL TESTS SALES AGENT Ended: 17:06 - Vital Signs at end of PSYCHOLOGICAL TESTS SALES AGENT Vital Signs at end of PSYCHOLOGICAL TESTS SALES AGENT: Rapid Response End Vital Sign Blood Pressure 95/54 Pulse Rate 80 Respiratory Rate 12 Temperature 97.4 F - Recommendations Notifications: Attending Physician I.Reason for PSYCHOLOGICAL TESTS SALES AGENT - A) Acute Change in Patient: (Select all that apply): Staff member or family is worried about patient, Acute change in mental status, Acute change in SpO2 less (unable to detect on pulse ox while showing mickey cyanosis in bilateral feet) Subjective: House Physician Resident Alexis John, PGY-2 Rapid response called at 1643, responded immediately. As per nursing, patient presented today with AM and hypoglycemia at 26. Patient was also found to have INR of 7, and was given Vitamin K. As per nursing, patient's mentation baseline is awake, alert, and combative, however today she has been somnolent/ lethargic and not herself despite receiving D50 and glucose improving to 120's ( at time of rapid). Nursing also reports that some cyanotic discoloration of distal tips of toes was present at admission, but has worsened since admission, and new small area of cyanosis at tip of nose is now noted. As per nursing, PMD (Dr. Valdez) was notified, and wanted to continue with the Dobutamine patient was started on, as he stated that this has helped in the past. On arrival, patient remains somnolent but is arousable to loud verbal and physical stimuli. Pressures on arrival 80's/40's, however they improved to 90's-100's systolic during the rapid response. Patient was able to follow commands appropriately. Wet cough repeatedly during exam, but lungs clear to auscultation. EKG notable for electronically paced rhythm. ABG obtained while patient on non-rebreather 100% FiO2, but was not notable for hypercarbia, hypoxia, acidosis/alkalosis, or elevated lactate. Patient was switched to BiPAP , and hospitalist attending responding to Rapid Response (Dr. Boogie) spoke with patient's PMD, who instructed to continue Dobutamine and Lasix for patient' s lower extremity findings, and will reassess in the AM. Case reviewed and discussed with responding attending, Dr. Boogie, who also discussed with case with patient's PMD, Dr. Valdez. - Neurological Status (Select all that apply): Follows Commands Other (Please specify): Somnolent/lethargic, but responsive to loud verbal/ physical stimuli - Respiratory Oxygen Delivery Method: CPap @%, Non Rebreather @% Oxygen Flow Rate: 15 - Constitutional Appears: Non-toxic, Confused Additional Comments: Lethargic/somnolent but following commands - Head Head Exam: ATRAUMATIC, NORMAL INSPECTION - Eyes Eye Exam: Normal appearance, PERRL. absent: Conjunctival injection, Scleral icterus - Respiratory Exam Respiratory Exam: Clear to Ausculation Bilateral, NORMAL BREATHING PATTERN. absent: Accessory Muscle Use, Chest Wall Tenderness, Decreased Breath Sounds, Rales, Rhonchi, Wheezes Additional comments: wet sounds breath sounds and cough, but nothing corresponding auscultated in lung owusu - Cardiovascular Exam Cardiovascular Exam: RRR, +S1, +S2. absent: Bradycardia, Tachycardia, Irregular Rhythm Additional comments: Subcutaneous pacer noted - GI/Abdominal Exam GI & Abdominal Exam: Soft. absent: Firm, Guarding, Rigid - Neurological Exam Additional exam: somnolent but arousable to loud verbal or physical stimuli, mostly non-verbal, following commands appropriately - Extremities Exam Additional comments: waxy appearing skin at hands and feet Left hand and bilateral LE cold to palpation Cyanotic-appearing feet, extending from distal toes to bottom 1/3rd of feet, R worse than L Pitting edema in bilateral LE from feet to bottom 1/3rd of thighs +2 radial pulses bilaterally Plan - Assessment of Findings&Treatment Plan EKG obtained, notable for eletronically paced rhythm ABG obtained, negative for hypercarbia, hypoxia, acidosis/alkalosis, or elevated lactate Continuing dobutamine as per PMD's instructions Switched to Bipap, will continue overnight Mitts ordered to prevent patient from removing Bipap
--- NOTE | 2017-01-27 18:21 | RAD ---
HISTORY: Rapid response. COMPARISON: January 26, 2017. Time of the most recent examination: 07:47 FINDINGS: LUNGS: No active pulmonary disease. PLEURA: No significant pleural effusion identified, no pneumothorax apparent. CARDIOVASCULAR: Cardiomegaly. No evidence of acute, significant cardiovascular disease. Position/ configuration of pacemaker Satisfactory. Incidental Finding(s): Postoperative changes related to sternotomy. OSSEOUS STRUCTURES: No significant abnormalities. VISUALIZED UPPER ABDOMEN: Normal. OTHER FINDINGS: None. IMPRESSION: No active pulmonary disease. No significant interval change compared to the prior examination(s).
[2017-01-28] VITALS: BMI 28.1
--- NOTE | 2017-01-28 00:45 | HP ---
HISTORY OF PRESENT ILLNESS: The patient is a 71-year-old female admitted through the Emergency Department on 01/27/2017 with increasing shortness of breath, abdominal distention, and edema and cyanosis of the extremities. The patient was admitted to telemetry for further evaluation and management and chest x-ray showed vascular congestion. She had an elevated BNP and troponin was slightly elevated. PAST MEDICAL HISTORY: Includes recurrent congestive heart failure due to ischemic cardiomyopathy with intractable ascites and cardiac cirrhosis, status post multiple abdominal paracentesis. The patient also has past medical history of COPD, type II diabetes mellitus, and paroxysmal atrial fibrillation. The patient is status post coronary artery bypass graft with implanted cardiac defibrillator device. ALLERGIES: THE PATIENT IS ALLERGIC TO ADHESIVE TAPE, NAPROXEN, AND CIPROFLOXACIN. CURRENT MEDICATIONS: Include Lasix 80 mg IV twice daily and digoxin 0.25 mg daily. The patient is on IV dobutamine as well as Pepcid 20 mg twice daily. SOCIAL HISTORY: The patient has a history of smoking in the remote past. There is no history of alcohol use. The patient is currently [facility]. She is dependent with ADLs and IADLs at the present time. PHYSICAL EXAMINATION: GENERAL: The patient is a well-developed, somewhat cachectic female, who is slightly lethargic, in no acute distress. VITAL SIGNS: Blood pressure 87/57, pulse 80, respiratory rate 20, and temperature 98. HEENT: Head is normocephalic and atraumatic. Pupils equal, round and reactive to light. Extraocular movements are intact. There is bilateral sensorineural hearing loss. NECK: Supple with no thyromegaly, no carotid bruit, and no adenopathy. Jugular venous distention is present. LUNGS: Show bibasilar rales with scattered rhonchi. HEART: Regular rate and rhythm. Grade 2/6 systolic murmur. ABDOMEN: Distended, slightly tense with no guarding, no rebound, and no tenderness. Fluid wave is present. EXTREMITIES: Show 1 to 2+ edema to the ankles bilaterally with some sciatic changes of the feet. NEUROLOGIC: The patient is somewhat lethargic, but arousable without focal, sensory or motor deficits. SKIN: Warm and dry. LABORATORY DATA: WBC is 3.7, hemoglobin 13.2, hematocrit 42.5, and platelets 164. Sodium 141, potassium 5.4, chloride 101, CO2 of 27, BUN 74, and creatinine 2.9. AST is elevated 842, ALT 531, and alkaline phosphatase 193. Troponin is elevated at 0.29. BNP is 33,100. IMPRESSION: 1 Recurrent congestive heart failure due to ischemic cardiomyopathy with intractable ascites due to cardiac cirrhosis. 2. Coronary artery disease, status post coronary artery bypass graft/automatic implantable cardioverter-defibrillator. 3. Chronic obstructive pulmonary disease. 4. Type 2 diabetes mellitus. 5. Paroxysmal atrial fibrillation, on Coumadin. The patient is now somewhat Coumadin toxic. PLAN: The patient is admitted to the Telemetry Unit. We will start IV dobutamine, IV Lasix 80 mg twice daily, and vitamin K 10 mg subcutaneously. Monitor PT/INR. Cardiology consultation, Dr. Roy. Prognosis remains guarded. BRADLEY Urrutia MD
--- NOTE | 2017-01-28 05:53 | CON ---
DATE: 01/27/2017 SERVICE: Cardiology. REASON FOR CONSULTATION AND FOLLOWUP: Congestive heart failure, hypoxic, hypotension, elevated troponin, elevated BUN and creatinine, elevated INR of 7, acute decompensated congestive heart failure secondary to systolic dysfunction. BRIEF CLINICAL HISTORY: This is a 71-year-old female with a past medical history of multiple admissions with acute decompensated congestive heart failure and ascites status post multiple abdominal paracentesis admitted with altered mental status, hypothermic, hypotensive, decompensated congestive heart failure and distended abdomen. PAST MEDICAL HISTORY: Significant for coronary artery disease, CABG, started in 1989 when the patient had a first inferior wall KS and the patient did TPA over the course of a period. The patient had multiple PTCAs done later on. The patient had the coronary artery bypass surgery at [facility] and then the patient had defibrillator that was done at [facility]. Since then, the patient had multiple PTCAs done over the course of time. The patient had cardiac cachexia; chronic atrial fibrillation, on anticoagulation; history of diabetes, not on oral hypoglycemic agent, but multiple admissions with hypoglycemia, so anti-oral hypoglycemic agent was stopped. The patient admitted multiple times, average 2-3 times a month because of ischemic end-stage cardiomyopathy and on just dobutamine. Multiple attempts were made to arrange home dobutamine. Because of home environment and social setup, it was not successful. PAST SURGICAL HISTORY: Significant for incarcerated hernia, abdominal surgery, history of multiple abdominal paracentesis, history of coronary artery disease, history of CABG, history of a stent, history of AICD, and history of mitral valve repair. PREVIOUS CARDIAC WORKUP: The patient had echocardiography on 04/09/2015 - with ejection fraction 20%-25%, [id number] mitral regurgitation, status post mitral valve repair, valve area 1.3 cm2, severe tricuspid regurgitation, RV systolic pressure 51, suggestive of mild pulmonary hypertension. The pulmonary hypertension adjustment because of configuration of the jet. ALLERGIES: NAPROSYN, CIPROFLOXACIN. SOCIAL HISTORY: Denies smoking. Denies any history of alcohol abuse. No history of substance abuse. The patient lives at home, lives with grandson. CURRENT MEDICATIONS: The patient at home takes Coumadin 3 mg daily, lisinopril 2.5 mg daily, Xopenex 0.63 mg daily, lactulose 30 g daily, Lasix 40 b.i.d., Pepcid 40 mg p.o. at bedtime, digoxin 250 mcg daily, carvedilol 3.125 mg daily. REVIEW OF SYSTEMS: As per HPI. PHYSICAL EXAMINATION: VITAL SIGNS: Temperature afebrile now, heart rate 80, blood pressure 96/52. HEENT: PERRLA. Extraocular muscles intact. NECK: Supple. No carotid bruit or thyromegaly. CHEST: Clear to auscultation. HEART: S1, S2. ABDOMEN: Soft. EXTREMITIES: Clubbing and cyanosis negative. LABORATORY DATA: WBC 6.1, hemoglobin 13.2, hematocrit 42.5, platelet count 164. Chemistry shows sodium 141, potassium 5.4, chloride 101, carbon dioxide 27, anion gap of 18, BUN 74, creatinine 2.9 with troponin 0.29 and BNP 33,100. TSH 12.5. Coagulation profile; INR 7, PTT 15.8, PT 80. IMPRESSION: Acute decompensated congestive heart failure, [id number], secondary to systolic dysfunction; end-stage cardiomyopathy; decreased left ventricular function; history of chronic atrial fibrillation, on anticoagulation; supratherapeutic INR; diabetes; hypertension; hyperlipidemia; decompensated heart failure, chronic; acute left ventricular systolic dysfunction; chronic atrial fibrillation; borderline troponin positive. Secondary to acute kidney injury creatinine clearance is 16 mL an hour, which is new, most likely to elevated troponin secondary to end-stage kidney disease. RECOMMENDATIONS: Agree with Dr. Valdez to start IV Coumadin that was started, but definitely we will continue Primacor for now 0.2 mg/kg/minute continuous infusion. Monitor electrolytes, monitor BUN and creatinine, monitor troponin. Because of the overall patient's condition, we will try to treat the patient medically. Hold anticoagulation with vitamin K. Once the INR is below 2, we will restart it again. We will consider abdominal paracentesis. Overall the patient's critical longterm prognosis is extremely poor. We will also check Coumadin tomorrow. We will follow with you. We will resume IV Lasix gentle, follow to monitor renal function closely. We will take about a day or two before the patient starts diuresis. We will follow. Monitor electrolyte closely. Thank you, Dr. Valdez for providing the opportunity in taking care of the patient, Chasidy Alicia. Tonia Quinteros MD
[2017-01-28 06:45] LABS: EOS % 0.9 % (1.5-5.0); GRAN # 2.57 (1.4-6.5); GRAN % 76.7 % (50.0-68.0); HEMOGLOBIN 11.8 g/dL (12.0-16.0); LYMPH # 0.4 (1.2-3.4); LYMPH % 13.1 % (22.0-35.0); MEAN CORPUSCULAR HEMOGLOBIN 25.3 pg (25.0-35.0); MEAN CORPUSCULAR HGB CONC 30.8 g/dl (31.0-37.0); MEAN PLATELET VOLUME 10.3 fl (7.0-11.0); MONO # 0.3 (0.1-0.6); MONO % 9.3 % (1.0-6.0); RBC 4.67 10^6/uL (3.5-6.1); RED CELL DISTRIBUTION WIDTH 16.6 % (11.5-14.5); WHITE BLOOD COUNT 3.4 10^3/ul (4.5-11.0)
[2017-01-28 07:17] LABS: ALB/GLOB RATIO 0.7 (1.1-1.8); ALBUMIN 2.9 g/dL (3.0-4.8); CALCIUM 8.1 mg/dL (8.4-10.5); MAGNESIUM 2.2 mg/dL (1.7-2.2)
[2017-01-28 07:36] LABS: PROTHROMBIN TIME 92.1 SECONDS (9.4-12.5)
[2017-01-28 07:37] LABS: INR 8.02 (0.93-1.08)
--- NOTE | 2017-01-28 09:33 | CARD ---
APPROVED REPORT EKG Measurement Heart [id number] <Conclusion> Electronic ventricular pacemaker: AF with mostly V. Paced beats
[2017-01-28] MEDS ORDERED: Phytonadione 10 mg/ml Inj (Adult) SC ONE (10:04)
--- NOTE | 2017-01-28 10:10 | CP.PCM.PN ---
Subjective - Date & Time of Evaluation Date of Evaluation: 01/28/17 Time of Evaluation: 09:30 - Subjective Subjective: less lethargic, denies chest pain, no shortness of breath Objective - Vital Signs/Intake and Output Vital Signs (last 24 hours): Temp Pulse Resp BP Pulse Ox 98 F 80 20 117/73 96 01/28/17 04:00 01/28/17 04:00 01/28/17 04:00 01/28/17 00:01 01/27/17 16:00 Intake and Output: 01/28/17 01/28/17 06:59 18:59 Intake Total 240 Output Total 400 Balance -160 - Medications Medications: Current Medications Digoxin (Lanoxin) 0.25 mg PO 1400 [facility] Diphenhydramine HCl (Benadryl) 25 mg PO HS PRN PRN Reason: Insomnia Famotidine (Pepcid) 20 mg PO HS [facility] Last Admin: 01/27/17 22:00 Dose: 20 mg Furosemide (Lasix) 80 mg IVP Q12 [facility] Last Admin: 01/27/17 22:00 Dose: 80 mg Dobutamine HCl/Dextrose (Dobutamine/Dextrose 5% 500mg/250ml) 500 mg in 250 mls @ 10.818 mls/hr IV .Q23H7M PRN; Protocol; 5 MCG/KG/MIN PRN Reason: TITRATE PER PROTOCOL Last Admin: 01/27/17 11:33 Dose: 5 mcg/kg/min, 10.818 mls/hr Phytonadione (Vitamin K Inj) 10 mg SC ONCE ONE Stop: 01/28/17 10:05 - Labs Labs: 01/28/17 06:00 01/28/17 06:00 PT 92.1 SECONDS (9.4-12.5) H 01/28/17 06:00 INR 8.02 (0.93-1.08) H* 01/28/17 06:00 APTT 50.4 Seconds (25.1-36.5) H 01/27/17 06:30 - Respiratory Exam Respiratory Exam: Rales, Rhonchi - Cardiovascular Exam Cardiovascular Exam: REGULAR RHYTHM, JVD, Murmur - GI/Abdominal Exam GI & Abdominal Exam: Distended, Firm - Extremities Exam Extremities Exam: Pedal Edema - Neurological Exam Neurological Exam: Altered - Skin Skin Exam: Dry, Warm Assessment and Plan (1) Ascites Status: Chronic (2) CHF (congestive heart failure) Status: Chronic (3) COPD (chronic obstructive pulmonary disease) Status: Chronic (4) Cardiomyopathy Status: Chronic (5) Type II diabetes mellitus Status: Chronic (6) Coumadin toxicity Status: Acute - Assessment and Plan (Free Text) Plan: continue IV Lasix, dobutamine, cardiology follow-up, VitaminK, monitor INR
[2017-01-28] MEDS: DOBUTamine 500mg/250ml D5W 500 MG/250 ML BAG IV PRN (11:02)
[2017-01-28 11:18] LABS: PROTHROMBIN TIME 79.5 SECONDS (9.4-12.5)
[2017-01-28 11:27] LABS: INR 6.95 (0.93-1.08)
[2017-01-28] MEDS: Digoxin 250 mcg (0.25 mg) Tab PO SCH (13:14)
[2017-01-28] MEDS ORDERED: Albuterol-Ipratrop 3 mg / 0.5 (3 ml) UD IH STA (18:18)
[2017-01-29] MEDS: Levalbuterol 0.63 MG/3 ML Inhal Soln UD IH STA ×2 (01:54→02:00)
[2017-01-29] MEDS: DOBUTamine 500mg/250ml D5W 500 MG/250 ML BAG IV PRN (11:20)
[2017-01-29] MEDS ORDERED: Phytonadione 10 mg/ml Inj (Adult) SC ONE (12:38)
--- NOTE | 2017-01-29 12:41 | CP.PCM.PN ---
Subjective - Date & Time of Evaluation Date of Evaluation: 01/29/17 Time of Evaluation: 12:15 - Subjective Subjective: more awake and resposive, denies chest pain, no shortness of breath Objective - Vital Signs/Intake and Output Vital Signs (last 24 hours): Temp Pulse Resp BP Pulse Ox 97.8 F 90 20 98/68 L 91 L 01/29/17 06:00 01/29/17 11:20 01/29/17 06:00 01/29/17 11:20 01/29/17 06:00 Intake and Output: 01/29/17 01/29/17 06:59 18:59 Intake Total 660 370 Output Total 1250 450 Balance -590 -80 - Medications Medications: Current Medications Digoxin (Lanoxin) 0.25 mg PO 1400 [facility] Last Admin: 01/28/17 13:14 Dose: 0.25 mg Diphenhydramine HCl (Benadryl) 25 mg PO HS PRN PRN Reason: Insomnia Famotidine (Pepcid) 20 mg PO HS [facility] Last Admin: 01/28/17 22:02 Dose: 20 mg Furosemide (Lasix) 80 mg IVP Q12 [facility] Last Admin: 01/29/17 10:10 Dose: Not Given Dobutamine HCl/Dextrose (Dobutamine/Dextrose 5% 500mg/250ml) 500 mg in 250 mls @ 10.818 mls/hr IV .Q23H7M PRN; Protocol; 5 MCG/KG/MIN PRN Reason: TITRATE PER PROTOCOL Last Admin: 01/29/17 11:20 Dose: 5 mcg/kg/min, 10.818 mls/hr Phytonadione (Vitamin K Inj) 10 mg SC ONCE ONE Stop: 01/29/17 12:39 - Labs Labs: 01/28/17 06:00 01/28/17 06:00 PT 79.5 SECONDS (9.4-12.5) H 01/28/17 10:50 INR 6.95 (0.93-1.08) H* 01/28/17 10:50 APTT 50.4 Seconds (25.1-36.5) H 01/27/17 06:30 - Respiratory Exam Respiratory Exam: Rales - Cardiovascular Exam Cardiovascular Exam: REGULAR RHYTHM - GI/Abdominal Exam GI & Abdominal Exam: Distended, Soft, Normal Bowel Sounds - Neurological Exam Neurological Exam: Alert, Awake - Skin Skin Exam: Dry, Warm Assessment and Plan (1) Ascites Status: Chronic (2) CHF (congestive heart failure) Status: Chronic (3) COPD (chronic obstructive pulmonary disease) Status: Chronic (4) Cardiomyopathy Status: Chronic (5) Type II diabetes mellitus Status: Chronic (6) Coumadin toxicity Status: Acute - Assessment and Plan (Free Text) Plan: contine IV Lasix, dobutamine, monitor INR, Vitamin K ordered, OOB/PT eval
[2017-01-29] MEDS: Digoxin 250 mcg (0.25 mg) Tab PO SCH (14:00)
[2017-01-29 15:21] LABS: BLOOD UREA NITROGEN 48 mg/dL (7-21); GFR AFRICAN-AMERICAN > 60; GFR NON-AFRICAN AMERICAN 55; MAGNESIUM 2.2 mg/dL (1.7-2.2)
--- NOTE | 2017-01-29 19:06 | PN ---
DATE: SUBJECTIVE: I was asked to evaluate Mrs. Alicia because of ventricular tachycardia. At this time, the patient denies any chest pain or shortness of breath. PHYSICAL EXAMINATION VITAL SIGNS: Blood pressure 98/68, heart rate 90, temperature 97.8 and respirations 20. HEENT: Normocephalic. CHEST: Diminished breath sounds along the bases. HEART: S1 and S2 regular. ABDOMEN: Soft. EXTREMITIES: A 1+ pitting edema. LABORATORY DATA: EKG on the 01/27/2017, revealed ventricular pace rhythm, underlying rhythm is atrial fibrillation with PVC versus . Echocardiogram in 04/2015, revealed ejection fraction ranged from 20% to 25% status post mitral valve repair, mild to moderate mitral valve stenosis, mitral valve area, estimated at 1.3 cm2 and [id number] tricuspid insufficiency. Chest x-ray revealed cardiomegaly and ICD with biventricular dual chamber pacemaker. ASSESSMENT: 1. Non-sustained ventricular tachycardia. 2. Cardiomyopathy. 3. Status post mitral valve repair, which was due to mitral stenosis. 4. Chronic atrial fibrillation. RECOMMENDATIONS: Continue digoxin 0.25 mg daily, Lasix 80 mg intravenously twice a day, and Dobutrex infusion, obtain BMP and magnesium level today, as well as digoxin level. Mehran Barone MD
[2017-01-29] MEDS: Albuterol-Ipratrop 3 mg / 0.5 (3 ml) UD IH PRN (20:22)
[2017-01-30] MEDS: Albuterol-Ipratrop 3 mg / 0.5 (3 ml) UD IH PRN ×3 (02:10→23:15)
[2017-01-30] MEDS: DOBUTamine 500mg/250ml D5W 500 MG/250 ML BAG IV PRN (12:47)
[2017-01-30] MEDS: Digoxin 250 mcg (0.25 mg) Tab PO SCH ×2 (14:00→16:49)
--- NOTE | 2017-01-30 16:26 | PN ---
DATE: REASON FOR CONSULTATION: Hypoxic, decompensated congestive heart failure, acute on chronic secondary to systolic dysfunction, nonsustained VT. SUBJECTIVE: The patient denies any chest pain, shortness of breath or any palpitation. OBJECTIVE: GENERAL: Not in apparent distress. VITAL SIGNS: As follows: Temperature afebrile, heart rate 62, and blood pressure 113/63. HEENT: PERRLA. Extraocular muscles intact. NECK: Supple. No carotid bruits or thyromegaly. CHEST: Clear to auscultation. HEART: S1 and S2. Regular. ABDOMEN: Soft. EXTREMITIES: Clubbing and cyanosis negative. LABORATORY DATA: Blood workup as follows: WBC , hemoglobin 11.8, hematocrit 38.3, and platelet count 123. Coagulation profile, INR 6.96 as of 01/28/2017. Chemistry showed sodium 140, potassium 4.3, chloride 108, carbon dioxide 27, anion gap of 16, BUN 40, and creatinine 1.0. IMPRESSION: Decompensated congestive heart failure acute on chronic secondary to systolic dysfunction, nonsustained ventricular tachycardia improved, ischemic cardiomyopathy, history of multiple stents, history of pre and post coronary artery bypass grafting, percutaneous transluminal coronary angioplasty, chronic atrial fibrillation on anticoagulation, supratherapeutic INR, history of aortic valve replacement, ascites recurrent, status post abdominal paracentesis, multiple, history of cardiac cachexia, history of last echocardiogram on 04/14/2015 with ejection fraction of 20-25%, [id number] mitral regurgitation, status post mitral valve repair, valve area of 1.3 cm2, severe tricuspid regurgitation, right ventricular systolic pressure of 51. RECOMMENDATIONS: IV Dobutrex is started. Hold anticoagulation because of elevated INR. Continue Dobutrex. Continue digoxin. Continue Lasix. Repeat workup in the morning. We will continue to follow with you. The patient is on Dobutrex, we will continue Dobutrex and continue digoxin. Further recommendation depending on lab for tomorrow. The patient may get benefit from abdominal paracentesis. The patient is on IV Coumadin. The patient is on IV Dobutrex. I will continue Dobutrex infusion. Monitor BUN and creatinine. Monitor troponin. Supplemented potassium. Once INR is below 2, we will consider restarting anticoagulation. Supplement electrolyte as needed. We will repeat calcium, magnesium, phosphatase, SMA-7, complete metabolic profile, and CBC in the morning with PT/INR. Further dose of Coumadin depending upon PT/INR. We will follow with you. Thank you Dr. Valdez for providing us the opportunity in taking care of the patient, Chasidy Alicia. Tonia Quinteros MD
--- NOTE | 2017-01-31 09:45 | PN ---
DATE: 01/30/[address] Valdez's patient, but I am covering him. SUBJECTIVE: The patient is sleepy, arousable, looks a little bit lethargic, is not a good historian. No chest pain. No shortness of breath. No nausea, vomiting or diarrhea. No hematuria. No hematochezia. No swelling of the leg. PHYSICAL EXAMINATION: VITAL SIGNS: Blood pressure 98/58, heart rate 90, temperature 97.8 and respiratory rate 20. HEENT: Head is normocephalic and atraumatic. Eyes; PERRLA. Extraocular muscles intact. Conjunctivae clear. Nose patent. Mucous membranes moist. NECK: Supple. No carotid bruits. No JVD or thyromegaly. CHEST: Bilaterally symmetrical. HEART: S1 and S2 positive. LUNGS: Clear to auscultation. ABDOMEN: Soft. Bowel sounds positive. No organomegaly. EXTREMITIES: No edema. No cyanosis. NEUROLOGIC: The patient is sleepy, but arousable. Moving all 4 extremities. EXTREMITIES: Having +1 pitting edema. MEDICATIONS: Benadryl, dobutamine drip, DuoNeb, digoxin, Lasix, and Pepcid. LABORATORY DATA: Sodium 140, potassium 4.3, BUN 42, creatinine 1.0 and glucose 135. ASSESSMENT AND PLAN: Ms. Alissa Alicia is a 71-year-old lady with multiple medical problems; nonsustained ventricular tachycardia, cardiomyopathy, status post mitral valve repair, which was due to mitral stenosis, chronic atrial fibrillation. Geography Instructor is on the case. Continue digoxin, Lasix, and Dobutrex infusion. Obtain BNP. Repeat labs. Review [employer] technical lead senior developer notes. History of rapid response on 01/27/2017, ascites; chronic, chronic obstructive pulmonary disease, cardiomyopathy, diabetes mellitus, history of Coumadin toxicity. Gastrointestinal and deep venous thrombosis prophylaxis. We will follow up. Paula Boles MD
[2017-01-31 10:46] LABS: EOS % 0.5 % (1.5-5.0); GRAN # 4.93 (1.4-6.5); GRAN % 79.9 % (50.0-68.0); HEMOGLOBIN 11.6 g/dL (12.0-16.0); LYMPH # 0.5 (1.2-3.4); LYMPH % 7.8 % (22.0-35.0); MEAN CELL VOLUME 82.7 fl (80.0-105.0); MEAN CORPUSCULAR HEMOGLOBIN 25.1 pg (25.0-35.0); MEAN CORPUSCULAR HGB CONC 30.4 g/dl (31.0-37.0); MEAN PLATELET VOLUME 10.5 fl (7.0-11.0); MONO # 0.7 (0.1-0.6); MONO % 11.8 % (1.0-6.0); RBC 4.62 10^6/uL (3.5-6.1); RED CELL DISTRIBUTION WIDTH 16.5 % (11.5-14.5); WHITE BLOOD COUNT 6.2 10^3/ul (4.5-11.0)
[2017-01-31 11:03] LABS: INR 1.38 (0.93-1.08); PROTHROMBIN TIME 15.3 SECONDS (9.4-12.5)
[2017-01-31 11:05] LABS: B-TYPE NATRIURETIC PEPTIDE 9410 pg/mL (0-450)
[2017-01-31 11:30] LABS: ALB/GLOB RATIO 0.7 (1.1-1.8); ALBUMIN 2.9 g/dL (3.0-4.8); ALT/SGPT 169 U/L (7-56); AST/SGOT 87 U/L (14-36); BLOOD UREA NITROGEN 28 mg/dL (7-21); CALCIUM 7.3 mg/dL (8.4-10.5); GFR AFRICAN-AMERICAN > 60; GFR NON-AFRICAN AMERICAN > 60; MAGNESIUM 1.8 mg/dL (1.7-2.2)
--- NOTE | 2017-01-31 13:15 | PN ---
DATE: 01/31/2017 REASON FOR CONSULTATION AND FOLLOWUP: Hypoxic, decompensated congestive heart failure, acute on chronic secondary to systolic dysfunction, nonsustained VT. SUBJECTIVE: The patient denies any chest pain. Confused on 2-point soft restraints. OBJECTIVE: GENERAL: Not in apparent distress. VITAL SIGNS: As follows, temperature afebrile, heart rate 93, and blood pressure 121/77. HEENT: PERRLA. Extraocular muscles intact. NECK: Supple. No carotid bruits or thyromegaly. CHEST: Clear to auscultation. HEART: S1 and S2, regular. ABDOMEN: Soft. EXTREMITIES: Clubbing and cyanosis negative. LABORATORY DATA: Blood workup as follows. WBC 3.4, hemoglobin 11.8, hematocrit 38.3, and platelet count 123. Chemistry shows sodium 140, potassium 4.3, chloride 102, carbon dioxide 27, anion gap of 16, BUN 48, creatinine 1.0, and magnesium 2.2. IMPRESSION: Decompensated congestive heart failure acute on chronic systolic dysfunction, nonsustained ventricular tachycardia improved, ischemic cardiomyopathy, history of multiple stents, history of pre and post coronary artery bypass grafting, percutaneous transluminal coronary angioplasty, history of chronic atrial fibrillation on anticoagulation, supratherapeutic INR, status post mitral valve repair, ascites, recurrent abdominal multiple paracentesis, history of cardiac cachexia, history of last echo on 04/14/2015, ejection fraction of 20-25%, [id number] mitral regurgitation, status post mitral valve repair, valve area of 1.3 cm2, severe tricuspid regurgitation, right ventricular systolic pressure of 51. "Yesterday, in my dictation, proabably it came by mistake that the patient has aortic valve replacement, the patient does not have any history of aortic valve replacement, it was mistake of dictation." RECOMMENDATIONS: Continue to hold anticoagulation because INR is 6.95. Awaiting for today's INR to be done. The patient apparently refused blood workup draw the blood. In the interim, continue dobutamine. Continue Lasix. We will follow with you. We will discuss with the patient have a blood drawn and we will get the blood drawn tomorrow and get stat PT/INR today. Thank you Dr. Valdez for providing us the opportunity in taking care of the patient, Chasidy Alicia. We will follow with you. Tonia Quinteros MD [facility] # [id number]
[2017-01-31] MEDS: DOBUTamine 500mg/250ml D5W 500 MG/250 ML BAG IV PRN (14:04)
[2017-01-31] MEDS: Digoxin 250 mcg (0.25 mg) Tab PO SCH (15:34)
[2017-01-31] MEDS: Albuterol-Ipratrop 3 mg / 0.5 (3 ml) UD IH PRN (16:53)
--- NOTE | 2017-01-31 21:46 | CP.PCM.PN ---
<Dixie Torres - Last Filed: 01/31/17 23:58> Subjective - Date & Time of Evaluation Date of Evaluation: 01/31/17 Time of Evaluation: 09:45 - Subjective Subjective: 71 yr female w/ ischemic cardiomyopathy w. intractible ascites, cardiac cirrhosis s/p multiple abd paracentesis, COPD, DM II, paroxysmal afib, CABG w/ pacemaker. Seen at bedside with CPAP in place, altered mental status noted, and bilateral restraints fastened. No distress noted. Objective - Vital Signs/Intake and Output Vital Signs (last 24 hours): Temp Pulse Resp BP Pulse Ox 98.2 F 99 H 20 124/93 H 95 01/31/17 16:00 01/31/17 18:00 01/31/17 16:00 01/31/17 16:00 01/31/17 16:00 Intake and Output: 01/31/17 02/01/17 18:59 06:59 Intake Total 490 Output Total 1700 Balance -1210 - Medications Medications: Current Medications Albuterol/Ipratropium (Duoneb 3 Mg/0.5 Mg (3 Ml) Ud) 3 ml IH [id number] PRN PRN Reason: Wheezing Last Admin: 01/31/17 16:53 Dose: 3 ml Digoxin (Lanoxin) 0.25 mg PO 1400 FARIHA Last Admin: 01/31/17 15:34 Dose: 0.25 mg Diphenhydramine HCl (Benadryl) 25 mg PO HS PRN PRN Reason: Insomnia Famotidine (Pepcid) 20 mg PO HS FARIHA Last Admin: 01/30/17 23:15 Dose: 20 mg Furosemide (Lasix) 80 mg IVP Q12 FARIHA Last Admin: 01/31/17 11:26 Dose: Not Given Dobutamine HCl/Dextrose (Dobutamine/Dextrose 5% 500mg/250ml) 500 mg in 250 mls @ 10.818 mls/hr IV .Q23H7M PRN; Protocol; 5 MCG/KG/MIN PRN Reason: TITRATE PER PROTOCOL Last Admin: 01/31/17 14:04 Dose: 5 mcg/kg/min, 10.818 mls/hr - Labs Labs: 01/31/17 10:35 01/31/17 10:35 PT 15.3 SECONDS (9.4-12.5) H 01/31/17 10:35 INR 1.38 (0.93-1.08) H 01/31/17 10:35 APTT 50.4 Seconds (25.1-36.5) H 01/27/17 06:30 - Constitutional Appears: Chronically Ill - Head Exam Head Exam: ATRAUMATIC, NORMAL INSPECTION, NORMOCEPHALIC - Eye Exam Eye Exam: EOMI, Normal appearance, PERRL - ENT Exam ENT Exam: Mucous Membranes Moist, Normal Exam - Neck Exam Neck Exam: Full ROM, Normal Inspection. absent: Lymphadenopathy - Respiratory Exam Respiratory Exam: Clear to Ausculation Bilateral, NORMAL BREATHING PATTERN - Cardiovascular Exam Cardiovascular Exam: Irregular Rhythm, +S1, +S2 - GI/Abdominal Exam GI & Abdominal Exam: Distended, Soft - Back Exam Back Exam: NORMAL INSPECTION - Neurological Exam Neurological Exam: Alert, Altered, Awake - Psychiatric Exam Psychiatric exam: Normal Affect, Normal Mood - Skin Skin Exam: Dry, Pallor, Warm Assessment and Plan (1) Coumadin toxicity Status: Acute (2) Elevated INR Status: Acute (3) Chronic a-fib Status: Acute (4) Non-sustained ventricular tachycardia Status: Acute (5) CHF (congestive heart failure) Status: Chronic (6) Cardiomyopathy Status: Chronic (7) Ascites Status: Chronic - Assessment and Plan (Free Text) Plan: Monitor INR. Continue current plan of care. PT onboard. Bipap/Cpap. Consults: Cardio - Dr. Quinonez = medical treatment w/ primacor, hold anticoagulation restart w/ INR of 2, consider abd paracentesis GI/Surgery - Dr. Odalis Leonard = ? Reviewed: CXR = (+) Cardiomegaly, Pacemaker, WNL Head CT = (-) Mass, hemorrhage, age appropriate changes ECG = Electronic ventricular pacemaker, AF w/ mostly Vpaced beats. <Paula Boles - Last Filed: 02/01/17 17:34> Objective - Vital Signs/Intake and Output Vital Signs (last 24 hours): Temp Pulse Resp BP Pulse Ox 98.4 F 83 20 103/68 95 02/01/17 12:00 02/01/17 13:38 02/01/17 12:00 02/01/17 13:38 02/01/17 06:00 Intake and Output: 02/01/17 02/01/17 06:59 18:59 Intake Total 1510 250 Output Total 1800 Balance -290 250 - Medications Medications: Current Medications Albuterol/Ipratropium (Duoneb 3 Mg/0.5 Mg (3 Ml) Ud) 3 ml IH [id number] PRN PRN Reason: Wheezing Last Admin: 02/01/17 11:45 Dose: 3 ml Digoxin (Lanoxin) 0.25 mg PO 1400 FARIHA Last Admin: 02/01/17 14:28 Dose: 0.25 mg Diphenhydramine HCl (Benadryl) 25 mg PO HS PRN PRN Reason: Insomnia Famotidine (Pepcid) 20 mg PO HS FARIHA Last Admin: 01/31/17 23:05 Dose: 20 mg Furosemide (Lasix) 80 mg IVP Q12 FARIHA Last Admin: 02/01/17 11:07 Dose: 80 mg Dobutamine HCl/Dextrose (Dobutamine/Dextrose 5% 500mg/250ml) 500 mg in 250 mls @ 10.818 mls/hr IV .Q23H7M PRN; Protocol; 5 MCG/KG/MIN PRN Reason: TITRATE PER PROTOCOL Last Admin: 02/01/17 13:38 Dose: 5 mcg/kg/min, 10.818 mls/hr Warfarin Sodium (Coumadin) 4 mg PO 1800 FARIHA PRN Reason: Protocol - Labs Labs: 02/01/17 06:00 02/01/17 06:00 PT 14.3 SECONDS (9.4-12.5) H 02/01/17 06:00 INR 1.29 (0.93-1.08) H 02/01/17 06:00 APTT 50.4 Seconds (25.1-36.5) H 01/27/17 06:30 Assessment and Plan - Assessment and Plan (Free Text) Plan: pt is seen and examined at bed side , looking comfortable . agreed all above , sleepy arousable , looking comfortable , no n,v,d nelson or chest pain , no change of status , will f/u
[2017-02-01 06:45] LABS: BASO # 0.01 K/mm3 (0.0-2.0); BASO % 0.2 % (0.0-3.0); EOS # 0.1 (0.0-0.7); EOS % 0.8 % (1.5-5.0); GRAN # 4.95 (1.4-6.5); GRAN % 80.8 % (50.0-68.0); HEMOGLOBIN 11.2 g/dL (12.0-16.0); LYMPH # 0.6 (1.2-3.4); LYMPH % 9.6 % (22.0-35.0); MEAN CELL VOLUME 83.2 fl (80.0-105.0); MEAN CORPUSCULAR HEMOGLOBIN 24.8 pg (25.0-35.0); MEAN CORPUSCULAR HGB CONC 29.8 g/dl (31.0-37.0); MONO # 0.5 (0.1-0.6); MONO % 8.6 % (1.0-6.0); RBC 4.52 10^6/uL (3.5-6.1); RED CELL DISTRIBUTION WIDTH 16.7 % (11.5-14.5); WHITE BLOOD COUNT 6.1 10^3/ul (4.5-11.0)
[2017-02-01 07:45] LABS: INR 1.29 (0.93-1.08); PROTHROMBIN TIME 14.3 SECONDS (9.4-12.5)
[2017-02-01 07:53] LABS: ALB/GLOB RATIO 0.7 (1.1-1.8); ALBUMIN 2.8 g/dL (3.0-4.8); ALT/SGPT 140 U/L (7-56); AST/SGOT 69 U/L (14-36); BLOOD UREA NITROGEN 25 mg/dL (7-21); CALCIUM 7.4 mg/dL (8.4-10.5); GFR AFRICAN-AMERICAN > 60; GFR NON-AFRICAN AMERICAN > 60; MAGNESIUM 1.7 mg/dL (1.7-2.2)
--- NOTE | 2017-02-01 11:43 | PN ---
DATE: 02/01/2017 REASON FOR CONSULTATION AND FOLLOWUP: Hypoxia, decompensated congestive heart failure, acute and chronic systolic dysfunction, nonsustained ventricular tachycardia. SUBJECTIVE: The patient denies any chest pain, shortness of breath or any palpitation. Hungry, wants to eat. Off 2-point restraints. OBJECTIVE: GENERAL: Not in apparent distress, lying flat on the bed, off restraints. VITAL SIGNS: Temperature 97.2, heart rate 84, blood pressure 98/64. HEENT: PERRLA, intact. NECK: Supple. No carotid bruits. No thyromegaly. CHEST: Clear to auscultation. HEART: S1 and S2 regular. ABDOMEN: Soft. Distended. Ascites positive. EXTREMITIES: Clubbing and cyanosis negative. LABORATORY DATA: WBC 6.1, hemoglobin 11.1, hematocrit 37.6, platelet count 119. Chemistry shows sodium 137, potassium 3.7, chloride 95, carbon dioxide 33, anion gap of 11, BUN 25, creatinine 0.5. ASSESSMENT: Acute decompensated congestive heart failure, acute on chronic secondary to systolic dysfunction; cardiomyopathy, ischemic; extensive history of coronary artery disease; history of atrial fibrillation, on anticoagulation. INR is subtherapeutic 1.29 and diabetes. RECOMMENDATION: We will restart low dose of Coumadin. Continue Lasix, continue TobraDex. We will follow with you. We will follow up PT/INR daily. Thank you Dr. Boles/Dr. Valdez for providing us the opportunity in taking care of patient, Chasidy Alicia. Tonia Quinteros MD
[2017-02-01] MEDS: Albuterol-Ipratrop 3 mg / 0.5 (3 ml) UD IH PRN ×2 (11:45→21:59)
[2017-02-01] MEDS: DOBUTamine 500mg/250ml D5W 500 MG/250 ML BAG IV PRN (13:38)
[2017-02-01] MEDS: Digoxin 250 mcg (0.25 mg) Tab PO SCH (14:28)
--- NOTE | 2017-02-02 00:53 | PN ---
SUBJECTIVE: The patient is 71 years old female. The patient is seen and examined on the bedside, looking comfortable, do not look like in distress. No shortness of breath. No nausea, vomiting, or diarrhea. No hematuria. No hematochezia. No swelling of the legs. PHYSICAL EXAMINATION: VITAL SIGNS: Temperature 98.5, pulse 95, blood pressure 95/53, respiratory rate 18. HEENT: Head is normocephalic and atraumatic. Eyes: PERRLA. Extraocular muscles intact. Conjunctivae clear. Nose patent. Mucous membranes moist. NECK: Supple. No carotid bruits. No JVD or thyromegaly. CHEST: Bilaterally symmetrical. HEART: S1 and S2 positive. LUNGS: Clear to auscultation. ABDOMEN: Soft. Bowel sounds positive. No organomegaly. EXTREMITIES: No edema. No cyanosis. NEUROLOGIC: The patient is awake and alert. Moving all 4 extremities. No focal deficits. MEDICATIONS: Dilantin, Coumadin, dextrose, dobutamine, digoxin, Lasix, and Pepcid. LABORATORY DATA: White blood cells 6.1, hemoglobin 11.2, hematocrit 37.6, platelets 119. Sodium 136, potassium 3.7, BUN 25, creatinine 0.8. Glucose 121 and 178. Liver function test, AST 140, ALT 150. ASSESSMENT AND PLAN: The patient is a 71-year-old lady with hypochloremia, uncontrolled diabetes mellitus, hypocalcemia, hypophosphatemia, abnormal liver function test, anemia, proteinuria, ketonuria, hematuria, urinary tract infection, seen by Dr. Aldair Randall, broadcast designer, history of congestive heart failure, cardiomyopathy, acute decompensated congestive heart failure, acute on chronic secondary to systolic dysfunction, a stent with history of coronary artery disease, atrial fibrillation, on anticoagulation, INR is subtherapeutic, and Dr. Quinteros said he will start Coumadin. Continue Lasix. The patient has history of chronic obstructive pulmonary disease, dementia, gastrointestinal and deep venous thrombosis prophylaxis. Repeat labs, and we will follow up. Paula Boles MD MTDDeanne
[2017-02-02 06:50] LABS: HEMOGLOBIN 11.1 g/dL (12.0-16.0); MEAN CELL VOLUME 83.6 fl (80.0-105.0); MEAN CORPUSCULAR HGB CONC 29.9 g/dl (31.0-37.0); MEAN PLATELET VOLUME 10.6 fl (7.0-11.0); RBC 4.44 10^6/uL (3.5-6.1); RED CELL DISTRIBUTION WIDTH 16.7 % (11.5-14.5); WHITE BLOOD COUNT 6.5 10^3/ul (4.5-11.0)
[2017-02-02 07:05] LABS: ALB/GLOB RATIO 0.7 (1.1-1.8); ALBUMIN 2.8 g/dL (3.0-4.8); ALT/SGPT 107 U/L (7-56); AST/SGOT 52 U/L (14-36); BLOOD UREA NITROGEN 23 mg/dL (7-21); CALCIUM 7.5 mg/dL (8.4-10.5); GFR AFRICAN-AMERICAN > 60; GFR NON-AFRICAN AMERICAN > 60
[2017-02-02 07:21] LABS: INR 1.35 (0.93-1.08); PROTHROMBIN TIME 14.9 SECONDS (9.4-12.5)
[2017-02-02] MEDS: Digoxin 250 mcg (0.25 mg) Tab PO SCH (13:04)
[2017-02-02] MEDS: DOBUTamine 500mg/250ml D5W 500 MG/250 ML BAG IV PRN (18:07)
--- NOTE | 2017-02-02 22:44 | PN ---
DATE: SUBJECTIVE: The patient is a 71-year-old female. The patient is seen and examined on the bedside, looking comfortable. No nausea. No vomiting. No diarrhea. No hematuria. No or hematochezia. Having lunch. Somebody was feeding her, looking better, weakness is improving. No fever. No chills. PHYSICAL EXAMINATION VITAL SIGNS: Temperature 98.1, pulse 50, blood pressure 107/78, and respiratory rate 18. HEENT: Head is normocephalic and atraumatic. Eyes; PERRLA. Extraocular muscle intact. Conjunctivae clear. Nose patent. Mucous membranes moist. NECK: Supple. No carotid bruits. No JVD or thyromegaly. CHEST: Bilateral symmetrical. HEART: S1 and S2 positive. LUNGS: Clear to auscultation. ABDOMEN: Soft. Bowel sounds present. No organomegaly. EXTREMITIES: No edema. No cyanosis. NEUROLOGIC: The patient is awake and alert. Moving all 4 extremities. No focal deficits. MEDICATIONS: Benadryl, Coumadin, dobutamine drip, digoxin, Lasix, Pepcid. LABORATORY DATA: White blood cell 6.5, hemoglobin 11.1, hematocrit 37.1, platelets 144. Sodium of 135, potassium of 3.8, BUN of 23, creatinine of 0.8, and glucose of 122 and 131, calcium 7.5. ASSESSMENT AND PLAN: Ms. Chasidy Alicia is a 71-year-old female with leukopenia, anemia, hypochloremia, diabetes mellitus, hypocalcemia, abnormal liver function test, proteinuria, ketonuria, hematuria, urinary tract infection; has atrial fibrillation, should be on Coumadin, but the patient is very noncompliant; has acute decompensated congestive heart failure, acute on chronic secondary to systolic dysfunction, she is on drip; has cardiomyopathy, looks like ischemic; extensive history of coronary artery disease. INR is subtherapeutic because the patient is not taking Coumadin, urge to take Coumadin regularly, continue Lasix and TobraDex. Chronic obstructive pulmonary disease, continue milrinone drip. The patient is improving very slowly, getting more awake and responsive today. Ascites, has history of Coumadin toxicity. Gastrointestinal and deep venous thrombosis prophylaxis. Repeat labs. We will follow. Paula Boles MD [facility] # [id number]
--- NOTE | 2017-02-03 05:31 | CON ---
PULMONARY CONSULTATION REFERRING PHYSICIAN: Paula Boles MD REASON FOR CONSULTATION: Cough, shortness of breath. HISTORY OF PRESENT ILLNESS: This is a 71-year-old female with cardiomyopathy, cirrhotic liver, recurrent ascites requiring paracenteses, chronic lung disease, diabetes, paroxysmal atrial fibrillation, history of coronary artery bypass surgeries, has AICD, came into emergency room 3 days ago with shortness of breath, large ascites. Chest x-ray showed congestion, heart failure. Seen by cardiology, on pressors. No nausea, no vomiting, no diarrhea. At this time, she is agitated. No leg swelling. PAST MEDICAL HISTORY: As per history of present illness. ALLERGIES: SHE HAS ALLERGIES TO ADHESIVE TAPES, NAPROSYN, AND CIPRO. MEDICATIONS: Presently she is on Coumadin, placed on dobutamine, albuterol, Atrovent nebulizer, digoxin, Lasix, Lovenox, and Pepcid. REVIEW OF SYSTEMS: No headache. No rhinitis. Has cough, shortness of breath. No chest pain. No nausea, no vomiting. Has ascites. No leg pain or leg swelling. PHYSICAL EXAMINATION: GENERAL: She is lying in the bed. Has soft restrain. VITAL SIGNS: Temperature is 98, heart rate is 81, respiratory rate is 18, blood pressure 105/66, pulse ox of 98% on nasal cannula. HEENT: Moist mucous membranes. Crowded airway. NECK: Supple. No JVD. LUNGS: Have a few crackles, scattered rhonchi. HEART: S1 and S2. ABDOMEN: Soft, nontender. No organomegaly. EXTREMITIES: No edema. NEUROLOGIC: Awake, alert, and follows simple commands. LABORATORY DATA: Shows hemoglobin 11.1, hematocrit 37.1, WBC 6.5, platelet is 144. INR 1.35. Sodium 135, potassium 3.8, chloride 94, bicarbonate 36, BUN 23, creatinine 0.8, glucose 99, calcium 7.5, AST 52, ALT 107, alk phos is 138. Albumin is 2.8. Microbiology: Urine culture has E. coli. Blood culture has been negative. IMPRESSION AND PLAN: Cardiomyopathy with decompensation, ischemic cardiomyopathy, history of coronary artery disease, coronary artery bypass surgery, atrial fibrillation, chronic lung disease, diabetes. Continue anticoagulation. Continue dobutamine, inhaled bronchodilator. Keep head 45 degrees, diuretics, gastric prophylaxis. Follow up labs in the morning. Thank you and we will follow with you. Tonia Amaya MD
[2017-02-03 07:31] LABS: INR 1.46 (0.93-1.08); PROTHROMBIN TIME 16.2 SECONDS (9.4-12.5)
--- NOTE | 2017-02-03 08:22 | PN ---
DATE: 02/02/2017 REASON FOR CONSULTATION AND FOLLOWUP: Hypoxia, decompensated congestive heart failure, [id number] systolic dysfunction, nonsustained ventricular tachycardia. SUBJECTIVE: The patient is awake and alert for sometime, but is combative, especially at night. She is in 2-point soft restraints. OBJECTIVE: GENERAL: The patient is in 2-point soft restraints, not in apparent distress, lying flat in the bed and claims that she is hungry and no one is feeding her. VITAL SIGNS: As follows; temperature afebrile, heart rate 72, and blood pressure 108/72. HEENT: PERRLA. Extraocular muscles intact. NECK: Supple. No carotid bruits or thyromegaly. CHEST: Clear to auscultation. HEART: S1 and S2. Regular. ABDOMEN: Soft. EXTREMITIES: Clubbing and cyanosis negative. LABORATORY DATA: Blood workup as follows: , hematocrit 37.1, and platelet count 144. Chemistry shows sodium 135, potassium 3.8, chloride 90, carbon dioxide 36, anion gap of 9, BUN 23, creatinine 0.8, total protein of 6.6, albumin 2.8, and albumin-globulin ratio is 0.7. IMPRESSION: Protein-calorie malnutrition, moderate, which was not present on admission, hypokalemia, amenia, failure to thrive, decompensated congestive heart failure, acute on chronic systolic dysfunction, cardiomyopathy ischemic, extensive history of coronary artery disease in 1990, status post inferior wall myocardial infarction . Over the course of time, the patient had multiple percutaneous transluminal coronary angioplasty and then coronary artery bypass grafting and then mitral valve repair at [facility], and then the patient's automatic implantable cardioverter-defibrillator done, history of recurrent , multiple abdominal paracentesis with subtherapeutic INR, the patient came in with supratherapeutic INR. RECOMMENDATIONS: Continue diuretics. Continue digoxin. Continue Coumadin. Last digoxin level was 1.3 yesterday. Followup labs in the morning. The patient was at home on 3 mg of Coumadin, now Coumadin is being given at 4, we will increase to 5 today and tomorrow and then 4 mg from day after. We will complete 5 mg today and 5 mg tomorrow and then 4 mg from Monday. Followup daily PT/INR and hold Coumadin if INR is more than 2.5. We will follow with you. Thank you Dr. Valdez for providing the opportunity in taking care of the patient, Chasidy Alicia. Tonia Quinteros MD
[2017-02-03] MEDS ORDERED: Enoxaparin 40 mg Syringe SC SCH (10:00)
--- NOTE | 2017-02-03 12:52 | CP.PCM.CON ---
History of Present Illness - History of Present Illness History of Present Illness: 71 year old female with history of decompensated CHF and ascites,CAD who presented with shortness of breath,CHF,hypoxia,and hypotension. Also found to have elevated troponin 0.29,RASHEEDA, transaminitis, [id number] and INR of 7. PMHx: CAD s/p CABG, PA, multiple PCTA's,CHF,end stage cardiomyopathy, EF 25%, chronic atrial fibrillation, DM,ascites, cachexia. Social History: Former smoker, no alcohol or drug use. Lives with grandson. Family History: Non contributory. Advance Care Planning:The patient does not have an Advanced Directive. Review of Systems: As per HPI, patient is confused, unable to completed extensive review Past Patient History - Infectious Disease Hx of Infectious Diseases: None - Tetanus Immunizations Tetanus Immunization: Unknown - Past Social History Smoking Status: Former Smoker - CARDIAC Hx Congestive Heart Failure: Yes Hx Hypertension: Yes - PULMONARY Hx Chronic Obstructive Pulmonary Disease (COPD): Yes - NEUROLOGICAL Hx Neurological Disorder: Yes Hx Dementia: Yes Hx Transient Ischemic Attacks (TIA): Yes - HEENT Hx HEENT Problems: Yes Hx Deafness: Yes ([place]) - RENAL Hx Chronic Kidney Disease: No - ENDOCRINE/METABOLIC Hx Diabetes Mellitus Type 2: Yes - HEMATOLOGICAL/ONCOLOGICAL Hx Blood Disorders: Yes Hx Anemia: Yes Hx Cancer: Yes (breast ca) - INTEGUMENTARY Hx Dermatological Problems: Yes Other/Comment: MOTTLED LEGS AND ARMS.antoni lower legs/feet purplish in color - MUSCULOSKELETAL/RHEUMATOLOGICAL Hx Falls: No - GASTROINTESTINAL Hx Gastrointestinal Disorders: Yes (ascites) Hx Diverticulitis: Yes Hx Gall Bladder Disease: Yes (cholecystectomy) Hx Gastroesophageal Reflux: Yes - GENITOURINARY/GYNECOLOGICAL Hx Genitourinary Disorders: Yes Hx Incontinence: Yes - PSYCHIATRIC Hx Psychophysiologic Disorder: Yes Hx Anxiety: Yes Hx Depression: Yes Hx Substance Use: No Other/Comment: dementia - SURGICAL HISTORY Hx Appendectomy: Yes Hx Cardiac Catheterization: Yes Hx Cholecystectomy: Yes Hx Coronary Stent: Yes Hx Mastectomy: Yes Hx Open Heart Surgery: Yes Hx Orthopedic Surgery: Yes (laminectomy) Other/Comment: Herniated disc repair, tonsilectomy - ANESTHESIA Hx Anesthesia: No Meds Allergies/Adverse Reactions: Allergies Allergy/AdvReac Type Severity Reaction Status Date / Time adhesive tape Allergy REDNESS Verified 01/27/17 06:22 naproxen Allergy VOMITING Verified 01/27/17 06:22 ciprofloxacin AdvReac ANAPHYLAXIS Verified 01/27/17 06:22 - Medications Medications: Current Medications Albuterol/Ipratropium (Duoneb 3 Mg/0.5 Mg (3 Ml) Ud) 3 ml IH [id number] PRN PRN Reason: Wheezing Last Admin: 02/01/17 21:59 Dose: 3 ml Digoxin (Lanoxin) 0.25 mg PO 1400 [facility] Last Admin: 02/02/17 13:04 Dose: 0.25 mg Enoxaparin Sodium (Lovenox) 40 mg SC DAILY [facility] PRN Reason: Protocol Last Admin: 02/03/17 09:28 Dose: 40 mg Famotidine (Pepcid) 20 mg PO HS [facility] Last Admin: 02/02/17 21:11 Dose: 20 mg Furosemide (Lasix) 80 mg IVP Q12 [facility] Last Admin: 02/03/17 09:28 Dose: 80 mg Dobutamine HCl/Dextrose (Dobutamine/Dextrose 5% 500mg/250ml) 500 mg in 250 mls @ 10.818 mls/hr IV .Q23H7M PRN; Protocol; 5 MCG/KG/MIN PRN Reason: TITRATE PER PROTOCOL Last Admin: 02/02/17 18:07 Dose: 5 mcg/kg/min, 10.818 mls/hr Warfarin Sodium (Coumadin) 4 mg PO 1800 FARIHA PRN Reason: Protocol Warfarin Sodium (Coumadin) 5 mg PO 1800 FARIHA PRN Reason: Protocol Stop: 02/03/17 23:59 Last Admin: 02/02/17 18:01 Dose: 5 mg Physical Exam - Constitutional Appears: Cachectic, Chronically Ill - Head Exam Head Exam: NORMAL INSPECTION - Eye Exam Eye Exam: Normal appearance, PERRL - ENT Exam ENT Exam: Mucous Membranes Moist, Normal Oropharynx - Neck Exam Neck exam: Positive for: Normal Inspection - Respiratory Exam Respiratory Exam: Decreased Breath Sounds, NORMAL BREATHING PATTERN - Cardiovascular Exam Cardiovascular Exam: Irregular Rhythm, +S1, +S2 - GI/Abdominal Exam GI & Abdominal Exam: Distended, Normal Bowel Sounds, Soft Additional comments: no tenderness - Extremities Exam Extremities exam: Positive for: pedal pulses present - Back Exam Back exam: NORMAL INSPECTION - Neurological Exam Neurological exam: Altered - Skin Skin Exam: Dry, Pallor - Additional Findings Additional findings: Palliative performance scale rating 40 % Results - Vital Signs Recent Vital Signs: Last Vital Signs Temp 97.4 F L 02/03/17 06:00 Pulse 78 02/03/17 06:00 Resp 18 02/03/17 06:00 BP 114/76 02/03/17 09:28 Pulse Ox 93 L 02/03/17 06:00 - Labs Result Diagrams: 02/02/17 06:00 02/02/17 06:00 Labs: Laboratory Results - last 24 hr 02/02/17 02/02/17 02/02/17 11:12 16:01 21:33 PT INR POC Glucose (mg/dL) 131 H 122 H 154 H 02/03/17 02/03/17 02/03/17 07:00 07:09 10:58 PT 16.2 H INR 1.46 H POC Glucose (mg/dL) 125 H 164 H Assessment & Plan - Assessment and Plan (Free Text) Assessment: 71 year old female with history of end stage cardiomyopathy,a Fib, DM,ascites who as admitted with CHF exacerbation, RASHEEDA, supratherapeutic INR, elevated troponin and ascites. The patient is lethargic ,when awakened she is confused and becomes easily agitated. She denies pain does not appear to be in distress. She needs assistance with al ADL's I spoke with patient's POA/grandsonGarland via phone.Resuscitation status regarding CPR/intubation discussed. Benefits and burdens of aggressive resuscitation explained. Questions answered Grand son agreed to make patinet DNR /DNI. LINDA Griffith and Mary Kirkpatrick APN also affirm grandson's request for DNR/DNI status.The plan is to meet with patient's grandson in Monday to discuss initiating POLST directive and future goals of care. Time spent in advance care planning discussion, 20 minutes Plan: Palliative support in establishing goals of care Advance care planning, DNR/DNI
[2017-02-03] MEDS: Digoxin 250 mcg (0.25 mg) Tab PO SCH ×2 (15:01→15:06)
[2017-02-03 15:07] VITALS: PULSE 71
--- NOTE | 2017-02-03 15:15 | PN ---
DATE: 02/03/2017 LOCATION: The patient is in room 376, bed 2. REASON FOR CONSULTATION AND FOLLOWUP: Hypoxia, decompensated congestive heart failure, acute on chronic LV systolic dysfunction, nonsustained ventricular tachycardia, and ischemic cardiomyopathy. SUBJECTIVE: The patient is lying flat in bed. The patient is on 2-point soft restraints. Does not look to be in respiratory distress. PHYSICAL EXAMINATION: VITAL SIGNS: Blood pressure 114/70, respirations 18, pulse 78, and temperature 97.4. HEENT: Head is normocephalic. Eyes, pupils are normal. Conjunctivae slightly pale. NECK: JVP low. Carotids equal. THORAX: AP diameter normal. LUNGS: Clear. CARDIOVASCULAR: Pansystolic murmur. Grade 3/6. ABDOMEN: Marked ascites. PERIPHERIES: No clubbing. No cyanosis. LABORATORY DATA: WBC 6.5, hemoglobin 11.1, hematocrit 37.1, and platelets 144. Random sugar 164. Sodium 137, potassium 3.8, BUN 28, and creatinine 0.8. AST 87, ALT 169, alkaline phosphatase 163. NT-pro brain natriuretic peptide 9410. Total protein 6.8. Albumin 2.9. DIAGNOSES: Ascites, hepatic dysfunction, decompensated congestive heart failure, acute on chronic left ventricular systolic dysfunction, ischemic cardiomyopathy, extensive history of coronary artery disease with multiple stents, bypass surgery, myocardial infarction. The patient had automatic implantable cardioverter-defibrillator insertion. The patient has multiple paracentesis for ascites, protein-calorie malnutrition, moderate. PLAN: Today's prothrombin time is 16.2, INR is 1.46. The patient is on warfarin 4 mg p.o. daily. Earlier the patient has elevated PT/INR. The patient is on Dobutamine drip and digoxin 0.25 mg daily, furosemide 80 mg IV q.12 hours, Lovenox 40 mg subcutaneously daily, and Pepcid 20 mg at bedtime. We will continue present therapy. We will follow. Tonia Roy MD
--- NOTE | 2017-02-03 18:27 | CARD ---
APPROVED REPORT EKG Measurement Heart [id number] <Conclusion> Demand pacemaker, interpretation is based on intrinsic rhythm A Fib with PVCs vs aberrancy Inferior infarct, age undetermined Possible Anterolateral infarct, age undetermined Abnormal ECG
[2017-02-03] MEDS ORDERED: guaiFENesin 100 mg/5 ml Syrup UD PO PRN (19:28)
--- NOTE | 2017-02-03 22:38 | PN ---
DATE: 02/03/2017 PULMONARY PROGRESS NOTE REFERRING PHYSICIAN: Dr. Boles. SUBJECTIVE: The patient is lying in the bed, head 45 degree, has some cough. No shortness of breath, has a soft restraint because she is pulling her Rivera catheter. No vomiting. No hematuria. No diarrhea. No leg pain or leg swelling. OBJECTIVE: GENERAL: In no acute distress. VITAL SIGNS: Temperature 98, heart rate 86, respiratory rate is 20, blood pressure 123/100, pulse ox 90% on nasal canula. HEENT: Moist mucous membranes. Small oral cavity. NECK: Supple. No JVD. LUNGS: Has scattered rhonchi. HEART: S1 and S2. ABDOMEN: Soft, nontender. No organomegaly. EXTREMITIES: No edema. NEUROLOGIC: Awake, alert, and follow simple commands. LABORATORY DATA: Shows INR 1.46, blood sugar 153. Microbiology: Blood culture negative. Urine culture has E coli. MEDICATIONS: She is on Coumadin 4 mg supposed to be given today, DuoNeb q. 6 hours p.r.n., digoxin 0.25 mg daily, Lasix 80 mg q. 12 hours, Lovenox 40 mg daily, Pepcid 20 mg daily, and Robitussin 5 mL q. 6 hours p.r.n. IMPRESSION AND PLAN: Cardiomyopathy with decompensation, has ischemic heart disease, coronary artery disease, history of coronary artery bypass surgery, atrial fibrillation, chronic lung disease, diabetes, also on anticoagulation for atrial fibrillation. Noncompliant with the medication. Spoke to nursing staff and suggested to take off the restraint and may discontinue the Rivera catheter. Follow urine output closely scan. Gastric prophylaxis. Bronchodilator. Keep head 45 degree. Fall precaution. Followup labs in the morning. Thank you and we will follow with you. Tonia Amaya MD
--- NOTE | 2017-02-04 02:03 | CP.PCM.PRO ---
Pronouncement of Note - Clinical Findings Physical Exam: No Response Verbal/Painful Stimuli, Absent Peripheral Pulses{ Carotid & Femoral}, Absent Heart & Breath Sounds, No Pupillary Light Reflex, No Corneal Reflex, Pupils Fixed & Dilated, Absence of Vital Signs - Pronouncement Time Time of Pronouncement of : 01:55 - Notifications Pronouncement Notifications: Family Notified (Grandson Arley Pereyra was called by nurse, a message to call hospital was left.), Atending Notified (Nurse is calling 's office who spoke to LOADING DOCK HELPER.) Client Service And Consulting Manager Notified: No - Autopsy Autopsy Requested: No - [place] [id number]
[2017-02-04 03:02] VITALS: BP 115/82; PULSE 61; RESP 18; TEMP 98.6; O2SAT 94
--- NOTE | 2017-02-04 11:45 | CP.PCM.PN ---
<Dixie Torres - Last Filed: 02/04/17 11:42> Subjective - Date & Time of Evaluation Date of Evaluation: 02/03/17 Time of Evaluation: 18:00 - Subjective Subjective: 71 yr female w/ ischemic cardiomyopathy w. intractible ascites, cardiac cirrhosis s/p multiple abd paracentesis, COPD, DM II, paroxysmal afib, CABG w/ pacemaker. Seen at bedside with restraints in place and being prepared for transfer to the 5th floor. Altered mental status. Unable to provide a history. No distress noted. Objective - Vital Signs/Intake and Output Vital Signs (last 24 hours): Temp Pulse Resp BP Pulse Ox 98.6 F 61 18 115/82 94 L 02/04/17 00:00 02/04/17 00:00 02/04/17 00:00 02/04/17 00:00 02/04/17 00:00 Intake and Output: 02/04/17 02/04/17 06:59 18:59 Intake Total 240 Balance 240 - Labs Labs: 02/02/17 06:00 02/02/17 06:00 PT 16.2 SECONDS (9.4-12.5) H 02/03/17 07:00 INR 1.46 (0.93-1.08) H 02/03/17 07:00 APTT 50.4 Seconds (25.1-36.5) H 01/27/17 06:30 - Constitutional Appears: No Acute Distress, Confused, Chronically Ill - Head Exam Head Exam: ATRAUMATIC, NORMAL INSPECTION, NORMOCEPHALIC - Eye Exam Eye Exam: EOMI, Normal appearance, PERRL - ENT Exam ENT Exam: Mucous Membranes Moist, Normal Exam - Neck Exam Neck Exam: Full ROM, Normal Inspection. absent: Lymphadenopathy - Respiratory Exam Respiratory Exam: Clear to Ausculation Bilateral, NORMAL BREATHING PATTERN - Cardiovascular Exam Cardiovascular Exam: REGULAR RHYTHM, +S1, +S2. absent: Murmur - GI/Abdominal Exam GI & Abdominal Exam: Distended, Firm - Extremities Exam Extremities Exam: Full ROM, Normal Capillary Refill, Normal Inspection. absent : Joint Swelling, Pedal Edema - Neurological Exam Neurological Exam: Alert, Altered, Awake - Psychiatric Exam Psychiatric exam: Normal Mood - Skin Skin Exam: Dry, Intact, Pallor, Warm Assessment and Plan (1) Ascites Status: Chronic (2) Coumadin toxicity Status: Acute (3) Elevated INR Status: Acute (4) Chronic a-fib Status: Acute (5) Non-sustained ventricular tachycardia Status: Acute (6) CHF (congestive heart failure) Status: Chronic (7) Cardiomyopathy Status: Chronic - Assessment and Plan (Free Text) Plan: Patient is noncompliant. Palliative care on board, now DNR/DNI. Monitor INR. Continue current plan of care. Consults: Pulmonary - Dr. Amaya = noncompliant w/ meds. suggest d/c restraints and giordano catheter. Cardio - Dr. Quinonez = INR 1.46, wrfarin 4mg, medical treatment w/ primacor drip , furosemide and digoxin Palliative Care - CHIEF WHARFINGER. Paramonte = Arianna Haque agreed to DNR/DNI. Reviewed: CXR = (+) Cardiomegaly, Pacemaker, WNL Head CT = (-) Mass, hemorrhage, age appropriate changes ECG = Electronic ventricular pacemaker, AF w/ mostly Vpaced beats. <Paula Boles - Last Filed: 02/04/17 16:57> Objective - Vital Signs/Intake and Output Vital Signs (last 24 hours): Temp Pulse Resp BP Pulse Ox 98.6 F 61 18 115/82 94 L 02/04/17 00:00 02/04/17 00:00 02/04/17 00:00 02/04/17 00:00 02/04/17 00:00 Intake and Output: 02/04/17 02/04/17 06:59 18:59 Intake Total 240 Balance 240 - Labs Labs: 02/02/17 06:00 02/02/17 06:00 PT 16.2 SECONDS (9.4-12.5) H 02/03/17 07:00 INR 1.46 (0.93-1.08) H 02/03/17 07:00 APTT 50.4 Seconds (25.1-36.5) H 01/27/17 06:30 Assessment and Plan - Assessment and Plan (Free Text) Assessment: 71 years old lady with many problems , htn ,copd , chf , cad , dementia , cmp , body released
== END 2017-02-04 01:57 | DRG 917 ==
LOC: ED 06:09 → ERH 08:53 → 3RSO 10:24 → 5RSO 02-03 17:55
PROVIDERS: ADMIT Internal Medicine; ATTEND Internal Medicine
DX: T45.511A Poisoning by anticoagulants, accidental (unintentional), initial encounter (principal); I50.23 Acute on chronic systolic (congestive) heart failure; I13.2 Hypertensive heart and chronic kidney disease with heart failure and with stage 5 chronic kidney disease, or end stage renal disease; N17.9 Acute kidney failure, unspecified; I47.2 Ventricular tachycardia; E44.0 Moderate protein-calorie malnutrition; N18.6 End stage renal disease; E83.39 Other disorders of phosphorus metabolism; I08.1 Rheumatic disorders of both mitral and tricuspid valves; R18.8 Other ascites; N39.0 Urinary tract infection, site not specified; E11.22 Type 2 diabetes mellitus with diabetic chronic kidney disease; K76.1 Chronic passive congestion of liver; E11.649 Type 2 diabetes mellitus with hypoglycemia without coma; J44.9 Chronic obstructive pulmonary disease, unspecified; I48.0 Paroxysmal atrial fibrillation; I48.2 Chronic atrial fibrillation; K21.9 Gastro-esophageal reflux disease without esophagitis; K76.89 Other specified diseases of liver; E11.65 Type 2 diabetes mellitus with hyperglycemia; E83.51 Hypocalcemia; E87.6 Hypokalemia; D64.9 Anemia, unspecified; D72.819 Decreased white blood cell count, unspecified; E78.5 Hyperlipidemia, unspecified; E87.8 Other disorders of electrolyte and fluid balance, not elsewhere classified; F03.90 Unspecified dementia, unspecified severity, without behavioral disturbance, psychotic disturbance, mood disturbance, and anxiety; H91.90 Unspecified hearing loss, unspecified ear; I05.0 Rheumatic mitral stenosis; I25.10 Atherosclerotic heart disease of native coronary artery without angina pectoris; I25.2 Old myocardial infarction; I25.5 Ischemic cardiomyopathy; I27.20 Pulmonary hypertension, unspecified; R09.02 Hypoxemia; R62.7 Adult failure to thrive; Z78.1 Physical restraint status; Z79.01 Long term (current) use of anticoagulants; Z85.3 Personal history of malignant neoplasm of breast; Z86.73 Personal history of transient ischemic attack (TIA), and cerebral infarction without residual deficits; Z87.891 Personal history of nicotine dependence; Z90.49 Acquired absence of other specified parts of digestive tract; Z91.14 Patient's other noncompliance with medication regimen; Z91.19 Patient's noncompliance with other medical treatment and regimen; Z95.1 Presence of aortocoronary bypass graft; Z95.5 Presence of coronary angioplasty implant and graft; Z95.810 Presence of automatic (implantable) cardiac defibrillator; R26.81 Unsteadiness on feet; R32 Unspecified urinary incontinence; Z87.892 Personal history of anaphylaxis; Z88.6 Allergy status to analgesic agent; Z88.1 Allergy status to other antibiotic agents; Z91.048 Other nonmedicinal substance allergy status; Z66 Do not resuscitate